=== PATIENT | female | born 1950 | race Caucasian/White ===

== ENCOUNTER 2016-11-18 09:09 | Day surgery (SDC) | payer MEDICARE, BC ==
--- NOTE | 2016-11-16 14:19 | HP ---
HISTORY OF PRESENT ILLNESS: The patient is a 66 year-old had an upper endoscopy with dilatation 5 or 6 years ago, now feels like food being stuck in her upper esophagus, almost anything at this time. PAST MEDICAL HISTORY: Diabetes, heart disease, history of bronchitis, hypertension. PAST SURGICAL HISTORY: She had wrist surgery, EGD, dilatation in the past, tonsillectomy and salivary gland surgery, appendectomy, hysterectomy in the past. FAMILY HISTORY: Heart disease, diabetes. ALLERGIES: Morphine, penicillin, Betadine, and tape. SOCIAL HISTORY: No alcohol abuse. Smoking currently. REVIEW OF SYSTEMS: 12 systems reviewed, per admission assessment, no current chest pain or palpitations, pertinent for dysphagia as mentioned above. She says using insulin pump she has had some reflux and nausea in the past. Also describing bronchitis, otherwise pertinent for multiple medical problems as noted above. She did have an VT back in 2004. MEDICATIONS: Albuterol, sulfate, allopurinol, amlodipine, aspirin, atorvastatin, carvedilol, gabapentin, Humalog, lisinopril, nitroglycerin p.r.n., sublingual potassium chloride, Pradaxa, ProAir, Ranexa, Sertraline, furosemide in the past. PHYSICAL EXAMINATION: GENERAL: No acute distress. HEENT: Sclerae nonicteric. NECK: No JVD. CHEST: Equal excursions, nonlabored breathing. CARDIOVASCULAR: Regular rhythm in my office exam. ABDOMEN: Soft, no peritoneal signs. EXTREMITIES: No significant edema. NEURO: Alert, moving extremities symmetrically. IMPRESSION: Dysphagia, Rosas esophagus. It was felt the patient would benefit from upper endoscopy, possible biopsy, possible dilatation. Risks and benefits explained in detail. She was shown the risk sheet, explained the plan of procedure in detail, not limited to bleeding, infection, small risk of bowel injury or perforation, possible open procedure. Ongoing morbidity, mortality, possible inability to pass the scope through or inability to dilate the esophagus possibly requiring other referrals or other specialists. Possibility, even though dilatation may improve swallowing, may need to be repeated again in the future, or possibility if failed to improve may need more of a motor or nerve-type function issue rather than an actual narrowing. She understands, agrees to plan of procedure, we will proceed with EGD, possible biopsy, possibly dilatation as an outpatient.
[~2016-11-18 09:09] MED LIST: Lactated Ringers 1,000 ML IV ONE; Lactated Ringers 1,000 ML IV SCH
--- NOTE | 2016-11-18 12:00 | OP ---
SURGERY DATE/TIME: 11/18/2016 1122 PREOPERATIVE DIAGNOSIS: Dysphagia. POSTOPERATIVE DIAGNOSES: 1) Proximal esophageal narrowing. 2) Mild gastritis. 3) Mild inflammation gastroesophageal junction. 4) Small gastric polyp. PROCEDURES: 1) EGD with esophageal balloon dilatation proximal esophagus. 2) Cold biopsy of the antrum to evaluate for Helicobacter pylori. 3) Cold biopsy polypectomy small gastric polyp. 4) Cold biopsy to evaluate mild inflammation gastroesophageal junction versus normal variation, path pending. SURGEON: Dr. Elliott Price. ANESTHESIA: MAC. ESTIMATED BLOOD LOSS: Minimal. INDICATIONS: As noted above. Risks and benefits explained in detail and not limited to and consent obtained. DESCRIPTION OF PROCEDURE AND FINDINGS: The patient is taken to the operating room. MAC anesthesia introduced. After official time out and no disagreement with planned procedure, bite block positioned. Video gastroscope easily passed in the oropharynx. There was proximal esophageal narrowing. The scope was able to be passed through this but this is where she is having symptoms. It was felt she would benefit from dilating this area. The scope passed back down through the gastroesophageal junction noted to be about 36 cm. There was some mild inflammation of the gastroesophageal junction. No gross evidence of Rosas's. The scope was able to be passed through the stomach to the junction of the second and third portion of the duodenum. On withdrawal of the scope, duodenum and duodenal bulb grossly unremarkable. Back in the stomach she had some minimal to mild gastritis. Cold biopsy taken of antrum to evaluate for Helicobacter pylori. There was a small polyp in the gastric body that was removed with cold biopsy forceps and cold biopsy polypectomy accomplished. Good hemostasis noted. On retroflex there is no evidence of any large hiatal hernia. Gastroesophageal junction was about 36 cm. There was a little bit of inflammation on the gastric side. Cold biopsy is taken of this area. There were no gross signs of any obvious erosive esophagitis. There were no signs of any large segments of Rosas's. There was just a little bit of inflammation so cold biopsy taken. The remainder of the esophagus grossly unremarkable other than proximal esophageal narrowing. It was felt this would benefit from dilatation. Therefore scope passed back down in the stomach. Balloon catheter carefully passed into the open area in the stomach and pulled back to proximal esophagus. Proximal esophageal narrowed area is then carefully inflated. First stage 45 seconds and second stage 45 seconds and then final stage size 20 balloon dilator for 2 minutes. The balloon was then released and catheter removed. The scope passed back down the stomach and carefully withdrawn. The biopsy site had good hemostasis. The area had been dilated. It was much more widely patent at this point. The scope was easily passed through this area at this time. There were no signs of any full thickness issues or injury secondary to dilatation. The patient tolerated the procedure well. The scope is withdrawn. Findings discussed with the family out in the waiting area.
[2016-11-18 12:49] VITALS: O2SAT 96
[2016-11-18 12:50] VITALS: BP 134/64; PULSE 64
== END 2016-11-18 12:48 | disposition home or self-care (01) ==
LOC: SDC 09:09
PROVIDERS: ATTEND Surgery
PROC: 0D718ZZ Dilation of Upper Esophagus, Via Natural or Artificial Opening Endoscopic (ICD-10-PCS; principal; 2016-11-18)
PROC: 0DB78ZX Excision of Stomach, Pylorus, Via Natural or Artificial Opening Endoscopic, Diagnostic (ICD-10-PCS; 2016-11-18)
PROC: 0DB48ZX Excision of Esophagogastric Junction, Via Natural or Artificial Opening Endoscopic, Diagnostic (ICD-10-PCS; 2016-11-18)
PROC: 0DB68ZX Excision of Stomach, Via Natural or Artificial Opening Endoscopic, Diagnostic (ICD-10-PCS; 2016-11-18)
DX: K22.2 Esophageal obstruction (principal); K29.70 Gastritis, unspecified, without bleeding; K52.9 Noninfective gastroenteritis and colitis, unspecified; K31.7 Polyp of stomach and duodenum; E11.9 Type 2 diabetes mellitus without complications; I51.9 Heart disease, unspecified; I10 Essential (primary) hypertension; Z79.01 Long term (current) use of anticoagulants; Z79.899 Other long term (current) drug therapy
CPT/HCPCS: 00740; 36415; C1726

== ENCOUNTER 2017-08-06 14:05 | Emergency (ER) | payer MEDICARE, BC ==
[2017-08-06] MEDS ORDERED: CARDIZEM DRIP 100 MG/100 ML D5W 100 ML IV PRN (14:37)
[2017-08-06] MEDS ORDERED: Cardizem IV 50 MG/10 ML IV ONE ×3 (14:37→14:58)
[2017-08-06] MEDS ORDERED: CARDIZEM DRIP 100 MG/100 ML D5W 100 ML IV ONE (14:40)
--- NOTE | 2017-08-06 14:40 | ERPHSYRPT ---
- History of Present Illness Time Seen by Provider: 08/06/17 14:30 Source: patient Physician History: PATIENT WITH A HISTORY OF COPD, ATRIAL FIBRILLATION COMPLAINS OF RAPID IRREGULAR HEART RATE X 3 DAYS ASSOCIATED WITH DYSPNEA, NONPRODUCTIVE COUGH AND EXERTIONAL DYSPNEA. DENIES CHEST PAIN FEVER, CHILLS OR NIGHT SWEATS Timing/Duration: day(s) Activities at Onset: activity Quality: other (DENIES CHEST PAIN) Severity of Pain-Max: none Severity of Pain-Current: none Modifying Factors: Improves With: other (EXERTIONAL DYSPNEA) Nitro Today/Relief: no nitro taken today Aspirin Treatment Today: no aspirin today Associated Symptoms: cough Prior Chest Pain/Cardiac Workup: heart attack Allergies/Adverse Reactions: adhesive Allergy (Mild, Verified 11/03/15 18:25) Blisters morphine Allergy (Verified 11/03/15 18:25) anaphylaxis pt went into respiratory failure and acute renal failure the last time she had morphine. Penicillins Allergy (Verified 11/03/15 18:25) Hives povidone-iodine [From Betadine] Allergy (Verified 11/03/15 18:25) BLISTERES soap [From Betadine] Allergy (Verified 11/03/15 18:25) Blisters Home Medications: Allopurinol 100 mg [Zyloprim 100 mg] 100 mg PO BID 11/07/15 [History] Amlodipine Besylate 5 mg [Norvasc 5 mg] 2.5 mg PO DAILY 11/07/15 [History] Carvedilol 3.125 mg [Coreg 3.125 MG] 6.25 mg PO BID 11/07/15 [History] Gabapentin 400 mg [Neurontin 400 MG] 400 mg PO QID 11/07/15 [History] Insulin Lispro [Humalog] 1 unit SQ UD 11/07/15 [History] Lisinopril [Prinivil] 20 mg PO DAILY 11/07/15 [History] Nitroglycerin 0.4 mg Tablet [Nitrostat 0.4 MG Tablet] 0.4 mg SL UD [History] Potassium Chloride 10 Meq Tab* [Klor Con 10 MEQ] 10 meq PO DAILY 11/07/15 [ History] Sertraline HCl 50 mg [Zoloft 50 mg Tablet] 50 mg PO DAILY 11/07/15 [History] Torsemide 20 mg PO DAILY 11/07/15 [History] Atorvastatin Calcium [Lipitor] 40 mg PO HS 10/14/16 [History] Ranolazine [Ranexa] 1,000 mg PO BID 10/14/16 [History] Hx Tetanus, Diphtheria Vaccination/Date Given: Yes Hx Influenza Vaccination/Date Given: Yes Hx Pneumococcal Vaccination/Date Given: Yes - Review of Systems Constitutional: No Fever, No Chills Eyes: No Symptoms Ears, Nose, & Throat: No Symptoms Respiratory: Dyspnea, Dyspnea on Exertion (JOYA), No Cough Cardiac: Palpitations, No Chest Pain, No Edema, No Syncope Abdominal/Gastrointestinal: No Symptoms, No Abdominal Pain, No Nausea, No Vomiting, No Diarrhea Genitourinary Symptoms: No Symptoms, No Dysuria Musculoskeletal: No Symptoms, No Back Pain, No Neck Pain Skin: No Symptoms, No Rash Neurological: No Symptoms, No Dizziness, No Focal Weakness, No Sensory Changes Psychological: No Symptoms Endocrine: No Symptoms All Other Systems: Reviewed and Negative - Past Medical History Pertinent Past Medical History: Yes Neurological History: No Pertinent History ENT History: No Pertinent History Cardiac History: Arrhythmia, Coronary Artery Disease, Hypertension, Myocardial Infarction (NH) Respiratory History: Bronchitis, COPD, Pneumonia Endocrine Medical History: Diabetes Type II Musculoskeletal History: Arthritis, Fractures GI Medical History: No Pertinent History, Hepatitis History: No Pertinent History Psycho-Social History: Depression Female Reproductive Disorders: No Pertinent History Other Medical History: 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 Heart murmur with afib hx. 2-3 dialysis treatments when on vent due to morphine allergy. Pt has Humalog insulin pump. - Past Surgical History Past Surgical History: Yes Neuro Surgical History: No Pertinent History Cardiac: No Pertinent History Respiratory: No Pertinent History Gastrointestinal: No Pertinent History Genitourinary: No Pertinent History Musculoskeletal: No Pertinent History, Orthopedic Surgery Female Surgical History: Hysterectomy Other Surgical History: right hand and wrist x 16 - sinus x 3 - - Social History Smoking Status: Former smoker How long have you smoked: 2years Exposure to second hand smoke: No Alcohol Use: None Drug Use: none Patient Lives Alone: No Significant Family History: diabetes, hypertension - Nursing Vital Signs Nursing Vital Signs: Initial Vital Signs Temperature 98.5 F 08/06/17 14:42 Pulse Rate 160 H 08/06/17 14:42 Respiratory Rate 17 08/06/17 14:42 Blood Pressure 153/96 08/06/17 14:42 O2 Sat by Pulse Oximetry 98 08/06/17 14:42 Pain Scale Pain Intensity 0 - Physical Exam General Appearance: mild distress Eye Exam: PERRL/EOMI, eyes nml inspection Ears, Nose, Throat Exam: normal ENT inspection, moist mucous membranes Neck Exam: normal inspection, non-tender, supple Respiratory Exam: diminished breath sounds, other (BASILAR ), No respiratory distress Cardiovascular Exam: normal heart sounds, tachycardia, irregular, No edema Gastrointestinal/Abdomen Exam: soft, normal bowel sounds, hernia (OBESE), No tenderness, No mass Back Exam: normal inspection, No CVA tenderness, No vertebral tenderness Extremity Exam: normal inspection, normal range of motion, pedal edema (2+) Neurologic Exam: alert, oriented x 3, cooperative, normal mood/affect, nml cerebellar function, sensation nml, No motor deficits Skin Exam: normal color, warm, dry Lymphatic Exam: No adenopathy SpO2 Interpretation: normal SpO2: 94 - Course EKG Interpreted by Me: RATE, A-fib (RATE 168, ), NORMAL AXIS - Radiology Exams Chest X-ray Interpretation: Discussed w/ radiologist (LEFT MID PERIPHERAL FIBROSIS/ SCARRING) Ordered Tests: Active Orders 24 hr Category Date Time Status Sales Engagement Manager STAT Care 08/06/17 15:03 Active EKG-ER Only STAT Care 08/06/17 15:03 Active IV Insertion STAT Care 08/06/17 15:03 Active Oxygen-ED Only NASAL CANNULA 1 lpm Care 08/06/17 14:35 Active CHEST 1 VIEW (PORTABLE) Stat Exams 08/06/17 14:36 Completed CBC W DIFF Stat Lab 08/06/17 14:33 Completed CMP Stat Lab 08/06/17 14:33 Completed NT PRO BNP Stat Lab 08/06/17 14:33 Completed PROTIME WITH INR Stat Lab 08/06/17 14:33 Completed TROPONIN Q3H Lab 08/06/17 14:33 Completed Medication Summary Discontinued Medications Generic Name Dose Route Start Last Admin Trade Name Freq PRN Reason Stop Dose Admin Diltiazem HCl 25 mg 08/06/17 14:37 08/06/17 14:47 Cardizem Iv 50 Mg/10 Ml IV 08/06/17 14:38 25 mg STAT ONE Administration Diltiazem HCl Confirm 08/06/17 14:40 Cardizem Iv 50 Mg/10 Ml Administered 08/06/17 14:41 Dose 50 mg IV .STK-MED ONE Diltiazem HCl 20 mg 08/06/17 14:58 08/06/17 15:25 Cardizem Iv 50 Mg/10 Ml IV 08/06/17 14:59 20 mg STAT ONE Administration Fentanyl Citrate 50 mcg 08/06/17 16:37 08/06/17 17:04 Sublimaze 100 Mcg/2 Ml IV 08/06/17 16:38 50 mcg STAT ONE Administration Fentanyl Citrate Confirm 08/06/17 17:04 Sublimaze 100 Mcg/2 Ml Administered 08/06/17 17:05 Dose 100 mcg .ROUTE .STK-MED ONE Sodium Chloride 1,000 mls @ 20 mls/hr 08/06/17 14:45 08/06/17 15:22 Sodium Chloride 0.9% 1000 Ml IV 09/05/17 14:44 20 mls/hr .Q24H JAMAL Administration Diltiazem HCl 100 mls @ 10 mls/hr 08/06/17 14:37 08/06/17 14:49 Cardizem Drip 100 Mg/100 Ml D5w IV 09/05/17 14:36 10 mg/hr .Q10H PRN 10 mls/hr HEART RATE/ A-FIB Administration Protocol 10 MG/HR Sodium Chloride Confirm 08/06/17 15:18 Sodium Chloride 0.9% 1000 Ml Administered 08/06/17 15:19 Dose 1,000 mls @ ud .ROUTE .STK-MED ONE Diltiazem HCl Confirm 08/06/17 14:40 Cardizem Drip 100 Mg/100 Ml D5w Administered 08/06/17 14:41 Dose 100 mls @ ud IV .STK-MED ONE Lab/Rad Data: Laboratory Result Diagrams 08/06/17 14:33 08/06/17 14:33 Laboratory Results 08/06/17 08/06/17 08/06/17 Range/Units 14:33 14:33 14:33 WBC (4.0-10.5) K/mm3 RBC (4.1-5.4) M/mm3 Hgb (12.0-16.0) gm/dl Hct (35-47) % MCV (78-100) fl MCH (26-32) pg MCHC (32-36) g/dl RDW (11.5-14.0) % Plt Count (150-450) K/mm3 MPV (6-9.5) fl Gran % (36.0-66.0) % Eos # (Auto) (0-0.5) Absolute Lymphs (auto) (1.0-4.6) Absolute Monos (auto) (0.0-1.3) Lymphocytes % (24.0-44.0) % Monocytes % (0.0-12.0) % Eosinophils % (0.00-5.0) % Basophils % (0.0-0.4) % Absolute Granulocytes (1.4-6.9) Basophils # (0-0.4) PT 11.4 (9.95-12.35) SECONDS INR 0.98 (0.8-3.0) Sodium 145 (137-145) mmol/L Potassium 4.2 (3.5-5.1) mmol/L Chloride 103 (98-107) mmol/L Carbon Dioxide 30 (22-30) mmol/L Anion Gap 15.5 H (5-15) MEQ/L BUN 12 (7-17) mg/dL Creatinine 0.71 (0.52-1.04) mg/dL Estimated GFR > 60.0 ML/MIN Glucose 200 H (74-106) mg/dL Calcium 9.6 (8.4-10.2) mg/dL Total Bilirubin 0.40 (0.2-1.3) mg/dL AST 21 (14-36) U/L ALT 18 (0-35) U/L Alkaline Phosphatase 90 (38-126) U/L Troponin I 0.065 H* (0.000-0.034) ng/mL NT-Pro-B Natriuret Pep 397 (0-900) pg/mL Serum Total Protein 7.0 (6.3-8.2) g/dL Albumin 3.8 (3.5-5.0) g/dL 08/06/17 Range/Units 14:33 WBC 12.1 H (4.0-10.5) K/mm3 RBC 4.57 (4.1-5.4) M/mm3 Hgb 13.4 (12.0-16.0) gm/dl Hct 42.0 (35-47) % MCV 91.9 (78-100) fl MCH 29.3 (26-32) pg MCHC 31.9 L (32-36) g/dl RDW 15.7 H (11.5-14.0) % Plt Count 261 (150-450) K/mm3 MPV 11.1 H (6-9.5) fl Gran % 76.3 H (36.0-66.0) % Eos # (Auto) 0.07 (0-0.5) Absolute Lymphs (auto) 2.02 (1.0-4.6) Absolute Monos (auto) 0.75 (0.0-1.3) Lymphocytes % 16.7 L (24.0-44.0) % Monocytes % 6.2 (0.0-12.0) % Eosinophils % 0.6 (0.00-5.0) % Basophils % 0.2 (0.0-0.4) % Absolute Granulocytes 9.25 H (1.4-6.9) Basophils # 0.02 (0-0.4) PT (9.95-12.35) SECONDS INR (0.8-3.0) Sodium (137-145) mmol/L Potassium (3.5-5.1) mmol/L Chloride (98-107) mmol/L Carbon Dioxide (22-30) mmol/L Anion Gap (5-15) MEQ/L BUN (7-17) mg/dL Creatinine (0.52-1.04) mg/dL Estimated GFR ML/MIN Glucose (74-106) mg/dL Calcium (8.4-10.2) mg/dL Total Bilirubin (0.2-1.3) mg/dL AST (14-36) U/L ALT (0-35) U/L Alkaline Phosphatase (38-126) U/L Troponin I (0.000-0.034) ng/mL NT-Pro-B Natriuret Pep (0-900) pg/mL Serum Total Protein (6.3-8.2) g/dL Albumin (3.5-5.0) g/dL - Progress Progress: improved (DISCUSSED WITH TEACHER OF THE EMOTIONALLY DISTURBED DR WALL AT 1615 ACCEPTS TRANSFER TO [facility] EM[facility] RO[facility] VIA [facility]) Progress Note: 08/06/17 15:52 IV NORMAL SALINE 10ML/HR CARDIZEM 25MG IVP SLOWLY, REPEAT 20MG IV FOLLOWED BY CARDIZEM INFUSION 10MG/HR RATE IMPROVED 170'S TO 100'S - Departure Time of Disposition: 16:22 Departure Disposition: Transfer Clinical Impression: ATRIAL FIBRILLATION RVR Condition: Stable Critical Care Time: Yes Critical Care Time(excluding separately billable procedures): 30-74 minutes, __ _ minutes (50) Referrals: LUIS GALLOWAY MD [Primary Care Provider] -
[2017-08-06] MEDS ORDERED: Sodium Chloride 0.9% 1000 ML 1,000 ML IV SCH (14:45)
[2017-08-06 15:03] LABS: BASOPHIL % 0.2 % (0.0-0.4); Basophil (Absolute #) 0.02 (0-0.4); Eosinophil % 0.6 % (0.00-5.0); Eosinophil (Absolute #) 0.07 (0-0.5); Granulocyte Absolute (ANC) 9.25 (1.4-6.9); Granulocytes % 76.3 % (36.0-66.0); Hemoglobin 13.4 gm/dl (12.0-16.0); Lymphocyte (Absolute #) 2.02 (1.0-4.6); Lymphocytes % 16.7 % (24.0-44.0); Mean Cell Volume 91.9 fl (78-100); Mean Corpuscular Hemoglobin 29.3 pg (26-32); Mean Corpuscular Hgb Concent. 31.9 g/dl (32-36); Mean Platelet Volume 11.1 fl (6-9.5); Monocyte (Absolute #) 0.75 (0.0-1.3); Monocytes % 6.2 % (0.0-12.0); Platelet Count 261 K/mm3 (150-450); Red Blood Count 4.57 M/mm3 (4.1-5.4); Red Cell Distribution Width 15.7 % (11.5-14.0); White Blood Count 12.1 K/mm3 (4.0-10.5)
[2017-08-06 15:05] LABS: INR 0.98 (0.8-3.0)
[2017-08-06 15:12] LABS: ALBUMIN 3.8 g/dL (3.5-5.0); ALKALINE PHOSPHATASE 90 U/L (38-126); ANION GAP 15.5 MEQ/L (5-15); BLOOD UREA NITROGEN 12 mg/dL (7-17); CHLORIDE 103 mmol/L (98-107); Calcium 9.6 mg/dL (8.4-10.2); Carbon Dioxide 30 mmol/L (22-30); Creatinine 1 0.71 mg/dL (0.52-1.04); Glucose 200 mg/dL (74-106); Potassium 4.2 mmol/L (3.5-5.1); SGOT/AST 21 U/L (14-36); SGPT/ALT 18 U/L (0-35); SODIUM 145 mmol/L (137-145)
[2017-08-06] MEDS ORDERED: Sodium Chloride 0.9% 1000 ML 1,000 ML ONE (15:18)
[2017-08-06 15:21] LABS: NT PRO BNP 397 pg/mL (0-900)
--- NOTE | 2017-08-06 15:41 | XRAY ---
Indication: Dyspnea. Comparison: May 09, 2017. Portable chest demonstrates stable left mid peripheral fibrosis/scarring. Remaining heart and lungs unremarkable. Bony thorax intact again with mild degenerative changes. Impression: Stable nonacute chest with chronic features.
[2017-08-06 16:14] VITALS: BP 127/73; PULSE 125
[2017-08-06 16:22] VITALS: O2SAT 94
[2017-08-06] MEDS ORDERED: SUBLIMAZE 100 MCG/2 ML IV ONE (16:37)
[2017-08-06] MEDS ORDERED: SUBLIMAZE 100 MCG/2 ML ONE (17:04)
== END 2017-08-06 17:14 | disposition short-term general hospital (02) ==
LOC: ED 14:05
DX: I48.91 Unspecified atrial fibrillation (principal); Z79.899 Other long term (current) drug therapy; E11.9 Type 2 diabetes mellitus without complications; Z79.4 Long term (current) use of insulin; I10 Essential (primary) hypertension
CPT/HCPCS: 36000; 36415; 71045; 80053; 83880; 84484; 85025; 85610; 93005; 93041; 96365; 96366; 96374; 96376; 99285; J3010

== ENCOUNTER 2018-11-30 08:33 | Observation (INO) | payer MEDICARE, BC ==
--- NOTE | 2018-11-30 07:57 | HP ---
DATE OF SURGERY: 11/30/2018 HISTORY OF PRESENT ILLNESS: The patient is a 68 year-old with increasing subcutaneous mass right upper arm. Increased aches and pains, desires excision. The patient had a small area on the opposite arm. PAST MEDICAL HISTORY: Diabetes, heart disease, chronic obstructive pulmonary disease. Arthritis. Aches and pains in her joints in the past. Gout. PAST SURGICAL HISTORY: Appendectomy. Hysterectomy. Tonsillectomy. Colonoscopy. Vaginal cyst removed in the past. MEDICATIONS: Includes Allopurinol, amiodarone, aspirin, atorvastatin, carvedilol, famotidine, Humalog, Hydralazine, isosorbide mononitrate, losartan, nitroglycerin, pantoprazole, potassium chloride, Pradaxa, ranolazine, Sertraline, Torsemide, Ventolin HFA. ALLERGIES: BETADINE. MORPHINE. PENICILLIN. TAPE. ADVERSE REACTION TO CHELSEY INHIBITOR IN THE PAST. FAMILY HISTORY: Diabetes, heart disease. SOCIAL HISTORY: She denied smoking or alcohol abuse but former smoker. REVIEW OF SYSTEMS: Fourteen systems reviewed. No chest pain or palpitations other systems negative or noncontributory as above and per preadmission questionnaire. PHYSICAL EXAMINATION: GENERAL: No acute distress. HEENT: Sclerae nonicteric. NECK: No JVD. CHEST: Equal excursion, nonlabored breathing. CVS: Regular rate and rhythm. ABDOMEN: Soft, nondistended. EXTREMITIES: Right upper arm increasing in size subcutaneous mass possible lipoma. Small area on her left arm. IMPRESSION: Bilateral arm subcutaneous masses or lipomas. The patient is in need of excisional biopsy of increasingly symptomatic aches and pains. Risks and benefits explained in detail including but not limited to bleeding or infection, risk of hematoma or seroma formation, wound dehiscence or wound infection possibly requiring packing, general risk of aches, pains, burning, numbness, possible vermin exterminator or chronic, possibly what we excise likely will not recur but could get similar subcutaneous mass, lipoma, or other nodule adjacent to or elsewhere on her body. She understands and agrees to the planned procedure, will proceed with excisional biopsy of bilateral arm subcutaneous mass or lipoma. General risk of anesthesia, deep venous thrombosis, pulmonary embolism, pneumonia but not limited to.
[~2018-11-30 08:33] MED LIST changes: -Lactated Ringers 1,000 ML IV SCH; +Sensorcaine 0.25% 10 ML ONE
[2018-11-30] MEDS ORDERED: Lactated Ringers 1,000 ML IV ONE (09:22)
[2018-11-30] MEDS ORDERED: KEFZOL 1 GM/50 ML PREMIX** 1 GM/50 ML IVPB IV ONE (09:23)
[2018-11-30] MEDS: Lactated Ringers 1,000 ML IV SCH ×2 (09:25→13:57)
[2018-11-30] MEDS ORDERED: KEFZOL 1 GM/50 ML PREMIX** 1 GM/50 ML IVPB IV SCH (09:30)
[2018-11-30] MEDS ORDERED: Versed 2 MG/2 ML Injection ONE (10:22)
[2018-11-30] MEDS ORDERED: DIPRIVAN 200 MG/20 ML IV ONE (10:22)
[2018-11-30] MEDS ORDERED: SUBLIMAZE 100 MCG/2 ML ONE ×2 (10:22→11:32)
[2018-11-30] MEDS ORDERED: Quelicin Fliptop 200 MG/10 ML ONE (10:22)
[2018-11-30] MEDS ORDERED: Ephedrine Sulfate 50 MG/ML ONE (10:46)
[2018-11-30] MEDS ORDERED: BRIDION 200MG/2ML IV ONE (11:13)
[2018-11-30] MEDS ORDERED: Xopenex 1.25 MG/0.5 ML UD NEBULE IH ONE (11:40)
[2018-11-30] MEDS ORDERED: Sodium Chloride 3 ML UD NEBULES IH ONE (11:41)
[2018-11-30] MEDS ORDERED: Lasix 40 MG/4 ML ONE (11:43)
--- NOTE | 2018-11-30 11:46 | OP ---
SURGERY DATE/TIME: 11/30/2018 1122 PREOPERATIVE DIAGNOSIS: Enlarging subcutaneous masses or lipomas bilateral upper extremity. POSTOPERATIVE DIAGNOSIS: Enlarging subcutaneous masses or lipomas bilateral upper extremity. PROCEDURES: 1) Excisional biopsy right upper extremity lipomatous mass (approximately 6.5 cm) with intermediate closure. 2) Excisional biopsy left lobulated lipomatous density left upper extremity (approximately 3 cm) with intermediate closure. SURGEON: Dr. Elliott Price. RADIO MECHANIC HELPER: Sampson Ramos, Medical Student III. ANESTHESIA: General. ESTIMATED BLOOD LOSS: Minimal. INDICATIONS: As noted above. Risks and benefits explained in detail and not limited to and consent obtained. DESCRIPTION OF PROCEDURE AND FINDINGS: The patient had a jugular line placed as had bilateral upper extremities that needed intervention. She is taken to the operating room. General anesthesia induced. The arms were prepped and draped in usual sterile fashion. After official time out and no disagreement with planned procedure, the site had been marked and confirmed in the preoperative holding area. Dissection carried down through the skin through the lobulated long lipomatous density in the right arm just above the antecubital area. Dissection carried down circumferentially around this lobulated density. Dissected off the underlying fascia. It measured about 6.5 cm in size, passed off for pathology. The remainder of the subcutaneous tissue appeared to be normal subcutaneous fat around the area. Good hemostasis noted. The wound is closed in layers through the deep and superficial subcu closed with 3-0 Vicryl. Skin closed with 4-0 Vicryl in running subcuticular fashion. She had some Dermabond placed later as she had some Steri-Strips. 0.25% Marcaine local had been injected. The patient tolerated the procedure well. There were no immediate complications. Attention is then turned to the left upper extremity. In the same location a small area was noted although it was vaguer. It required making a little bit longer incision, dissection down circumferentially around lobulated density, subcutaneous lipomatous density, this seemed to be smaller than the opposite side. It is carefully dissected free from the underlying fascia and more normal appearing subcutaneous fat around the area and passed off for pathology. The remainder of the subcutaneous tissue around there appeared normal in density. No other obvious separate lipomatous densities around the area. Good hemostasis noted. The wound was closed in intermediate fashion, deep and superficial subcu closed with 3-0 Vicryl. Skin closed with 4-0 Vicryl, Dermabond, sterile dressing applied. 0.25% Marcaine local injected along with compression dressing. The patient tolerated the procedure well. There were no immediate complications. Findings discussed with the family out in the waiting area. The left side was about 3 x 5 x 6.5 cm. I will see her back in the office next week.
--- NOTE | 2018-11-30 12:04 | XRAY ---
Indication: Right jugular line placement. Comparison: August 06, 2017. Portable chest demonstrates new right jugular central venous access catheter with tip projecting over the SVC and without pneumothorax. New bilateral upper lobe subsegmental atelectasis/scarring and left hemidiaphragm elevation. Remaining heart, lungs, and bony thorax unremarkable.
[2018-11-30] MEDS ORDERED: DILAUDID 2 MG INJECTION ONE (12:09)
[2018-11-30] MEDS ORDERED: NORCO 5/325 MG PO PRN (13:38)
[2018-11-30] MEDS ORDERED: NON-FORMULARY ITEM (Insulin Lispro 1 UNIT) CONT-SUBQ SCH (13:45)
[2018-11-30] MEDS: Apresoline 25 MG TABLET PO SCH ×2 (13:57→22:36)
[2018-11-30] MEDS: Klor Con 10 MEQ PO SCH ×2 (13:57→22:35)
[2018-11-30] MEDS ORDERED: POTASSIUM CHLORIDE 20 MEQ POWDER FOR ORAL SOL PO SCH (15:00)
[2018-11-30] MEDS ORDERED: Xopenex 1.25 MG/0.5 ML UD NEBULE IH PRN (16:35)
--- NOTE | 2018-11-30 16:39 | PCM.HP ---
History of Present Illness - Chief Complaint Chief Complaint: Difficulty Breathing Acute Exac History of Present Illness: is a 68 year old female who had an elective outpatient procedure in surgery today, she had removal of bilateral arm lipomas under general. following the procedure she complained of shortness of breath so was direct admit. she is currently stable on 2L oxygen NC which she is on chronically, hx of cardiac disease including cad and copd. she still feels short of breath objectively but is resting comfortably, has IJ in right neck and complains of pain there, no chest pain. - Review of Systems Constitutional: No Fever, No Chills Respiratory: Short Of Breath Cardiac: No Chest Pain, No Edema, No Syncope Abdominal/Gastrointestinal: No Abdominal Pain, No Nausea, No Vomiting, No Diarrhea Genitourinary Symptoms: No Dysuria Skin: No Rash All Other Systems: Reviewed and Negative Medications & Allergies Home Medications: Home Medication List Allopurinol 100 mg [Zyloprim 100 mg] 100 mg PO BID 11/18/18 [History Confirmed 11/30/18] Amiodarone HCl 200 mg [Cordarone 200 MG] 200 mg PO DAILY 11/18/18 [ History Confirmed 11/30/18] Aspirin 81 mg PO DAILY 11/18/18 [History Confirmed 11/30/18] Carvedilol 12.5 mg [Coreg 12.5 mg] 12.5 mg PO DAILY 11/18/18 [History Confirmed 11/30/18] Dabigatran Etexilate Mesylate [Pradaxa] 150 mg PO BID 11/18/18 [History Confirmed 11/30/18] Famotidine [Pepcid] 40 mg PO DAILY 11/18/18 [History Confirmed 11/30/18] HydrALAzine HCL 25 MG TAB [Apresoline 25 MG TABLET] 25 mg PO TID 11/18/18 [History Confirmed 11/30/18] Insulin Lispro [Humalog] 1 unit CONT-SUBQ UD 11/18/18 [History Confirmed ] Isosorbide Mononitrate 30 mg [Imdur 30 MG] 30 mg PO DAILY 11/18/18 [ History Confirmed 11/30/18] Losartan Potassium [Cozaar] 100 mg PO DAILY 11/18/18 [History Confirmed 11/30/18 ] Multivitamin [Daily Multivitamin] 1 each PO DAILY 11/18/18 [History Confirmed ] [place]-3S/Dha/Epa/Fish Oil [[place] Power 1,050 mg Softgel] 1,050 mg PO BID [History Confirmed 11/30/18] PANTOPRAZOLE 40 mg Tablet [Protonix 40MG Tablet] 40 mg PO QAM 11/18/18 [ History Confirmed 11/30/18] Potassium Chloride [Klor-Con] 20 meq PO TID 11/18/18 [History Confirmed 11/30/18 ] Ranolazine [Ranexa] 1,000 mg PO BID 11/18/18 [History Confirmed 11/30/18] Sertraline HCl 50 mg [Zoloft 50 mg Tablet] 50 mg PO DAILY 11/18/18 [History Confirmed 11/30/18] Torsemide 20 mg [Demadex 20 mg] 20 mg PO BID 11/18/18 [History Confirmed 11/30/18] Allergies/Adverse Reactions: Allergies Allergy/AdvReac Type Severity Reaction Status Date / Time adhesive Allergy Mild Blisters Verified 11/30/18 09:16 morphine Allergy anaphylaxis Verified 11/30/18 09:16 Penicillins Allergy Rash Verified 11/30/18 09:16 povidone-iodine Allergy BLISTERES Verified 11/30/18 09:16 [From Betadine] soap [From Betadine] Allergy Blisters Verified 11/30/18 09:16 - Past Medical History Past Medical History: Yes Neurological History: No Pertinent History ENT History: No Pertinent History Cardiac History: Arrhythmia, Coronary Artery Disease, Hypertension, Myocardial Infarction (NH) Respiratory History: COPD, Pneumonia, Sleep Apnea Endocrine Medical History: Diabetes Type II Musculoskelatal History: Arthritis, Fractures GI Medical History: Hepatitis History: Other Pyscho-Social History: Depression Reproductive Disorders: No Pertinent History Comment: 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 Heart murmur with afib hx. 2-3 dialysis treatments when on vent due to morphine allergy. Pt has Humalog insulin pump. hx hepatitis A as a child - Female History Hx Last Menstrual Period: 1989 Are you now?: No - Past Surgical History Past Surgical History: Yes Neuro Surgical History: No Pertinent History Cardiac History: No Pertinent History Respiratory Surgery: No Pertinent History GI Surgical History: Hernia Repair Genitourinary Surgical Hx: No Pertinent History Musculskeletal Surgical Hx: No Pertinent History, Orthopedic Surgery Female Surgical History: Hysterectomy Other Surgical History: right hand and wrist x 16 - sinus x 3 -. cyst removed left side. NODULES REMOVED FROM BILATERAL ARMS - Social History Smoking Status: Never smoker How long have you smoked: 2years Exposure to second hand smoke: No Alcohol: None Drug Use: none Significant Family History: diabetes, hypertension - Physical Exam Vital Signs: Vital Signs - 24 hr Temp Pulse Resp BP Pulse Ox 11/30/18 14:49 97.4 F 64 20 128/68 96 11/30/18 13:59 97.6 F 62 20 123/58 94 L 11/30/18 13:18 96 11/30/18 13:17 97.6 F 62 20 135/63 95 11/30/18 13:08 97.6 F 63 20 149/67 93 L 11/30/18 11:46 63 18 99 11/30/18 09:28 98.2 F 58 L 19 155/59 96 11/30/18 09:23 98.2 F 58 L 19 155/59 96 Oxygen-Last 24 hours O2 Percentage 2 Liters = 28% O2 Percentage 2 Liters = 28% O2 Percentage 2 Liters = 28% O2 Percentage 2 Liters = 28% Oxygen Flowrate (L/min)-RT 2 General Appearance: no apparent distress, obese Neurologic Exam: alert, oriented x 3 Respiratory Exam: normal breath sounds, lungs clear, No respiratory distress Cardiovascular Exam: regular rate/rhythm, normal heart sounds, normal peripheral pulses Gastrointestinal/Abdomen Exam: soft, normal bowel sounds, No tenderness, No mass Extremity Exam: normal inspection, normal range of motion, pelvis stable Skin Exam: normal color, warm, dry, No rash Results - Labs Lab/Micro Results: Accuchecks Date 11/30/18 Time 09:11 Accucheck Value: 187 Accuchecks Date 11/30/18 Time 09:11 Accucheck Value: 187 - Radiology Impressions Radiology Exams & Impressions: Radiology Procedures Category Date Time Status CHEST 1 VIEW (PORTABLE) Routine Exams 11/30/18 11:50 Completed - Other Procedures and Tests Respiratory Therapy 11/30/18 11:46 Respiratory Therapy Assessment DAILY 11/30/18 12:06 Flutter Therapy UD 11/30/18 13:17 Oxygen NASAL CANNULA 2 lpm 11/30/18 21:00 BiPap/CPAP ROUTINE Assessment/Plan (1) Shortness of breath Current Visit: Yes Status: Acute Assessment & Plan: chest xray with some mild atelectasis, no pnemonia. no obvious volume overload on exam. will check d-dimer, troponin and 12 lead ekg but currently sounds like a normal sinus rhythm. will give nebs prn and observe overnight. Code(s): R06.02 - SHORTNESS OF BREATH (2) Chronic obstructive lung disease Current Visit: No Status: Acute Code(s): J44.9 - CHRONIC OBSTRUCTIVE PULMONARY DISEASE, UNSPECIFIED (3) Essential hypertension Current Visit: No Status: Acute Code(s): I10 - ESSENTIAL (PRIMARY) HYPERTENSION (4) Paroxysmal atrial fibrillation Current Visit: No Status: Acute Code(s): I48.0 - PAROXYSMAL ATRIAL FIBRILLATION
[2018-11-30] MEDS ORDERED: Sodium Chloride 3 ML UD NEBULES IH PRN (16:48)
[2018-11-30] MEDS ORDERED: TRANDATE 100 MG/20 ML MDV FOR DRIP IV ONE (16:57)
[2018-11-30 17:04] LABS: BASOPHIL % 0.2 % (0.0-0.4); Basophil (Absolute #) 0.02 (0-0.4); Eosinophil % 0.4 % (0.00-5.0); Eosinophil (Absolute #) 0.04 (0-0.5); Granulocyte Absolute (ANC) 5.38 (1.4-6.9); Granulocytes % 58.7 % (36.0-66.0); Hematocrit 36.7 % (35-47); Hemoglobin 11.7 gm/dl (12.0-16.0); Lymphocyte (Absolute #) 2.89 (1.0-4.6); Lymphocytes % 31.6 % (24.0-44.0); Mean Cell Volume 99.7 fl (78-100); Mean Corpuscular Hemoglobin 31.7 pg (26-32); Mean Corpuscular Hgb Concent. 31.9 g/dl (32-36); Mean Platelet Volume 10.2 fl (6-9.5); Monocyte (Absolute #) 0.83 (0.0-1.3); Monocytes % 9.1 % (0.0-12.0); Platelet Count 250 K/mm3 (150-450); Red Blood Count 3.68 M/mm3 (4.1-5.4); Red Cell Distribution Width 13.9 % (11.5-14.0); White Blood Count 9.2 K/mm3 (4.0-10.5)
[2018-11-30] MEDS: DEMADEX 20 MG PO SCH (17:11)
[2018-11-30 17:27] LABS: ANION GAP 10.5 MEQ/L (5-15); BLOOD UREA NITROGEN 19 mg/dL (7-17); CHLORIDE 107 mmol/L (98-107); Calcium 8.8 mg/dL (8.4-10.2); Carbon Dioxide 28 mmol/L (22-30); Creatinine 1 0.91 mg/dL (0.52-1.04); Glucose 148 mg/dL (74-106); Potassium 3.9 mmol/L (3.5-5.1); SODIUM 141 mmol/L (137-145)
[2018-11-30 17:39] LABS: NT PRO BNP 84.9 pg/mL (0-900); TROPONIN < 0.012 ng/mL (0.000-0.034)
[2018-11-30] MEDS ORDERED: NON-FORMULARY ITEM (Dabigatran Etexilate Mesylate [Pradaxa] 150 MG) PO SCH (22:00)
[2018-11-30] MEDS ORDERED: [UNRECOGNIZED DRUG - OTHER] PO SCH (22:00)
[2018-11-30] MEDS ORDERED: RANOLAZINE 1000 MG PO SCH (22:00)
[2018-11-30] MEDS ORDERED: Ambien 5 MG Tablet PO ONE (22:16)
[2018-11-30] MEDS: Ranexa 500 MG PO SCH (22:35)
[2018-11-30] MEDS: FISH OIL 1,000 MG CAPSULE PO SCH ×2 (22:35→22:43)
[2018-11-30] MEDS: ULTRAM 50 MG PO PRN (22:36)
[2018-11-30] MEDS: ZYLOPRIM 100 MG PO SCH (22:36)
[2018-11-30] MEDS: NovoLOG Insulin SQ PRN (22:36)
[2018-12-01] MEDS: ULTRAM 50 MG PO PRN (05:05)
[2018-12-01] MEDS ORDERED: ULTRAM 50 MG PO PRN (06:54)
--- NOTE | 2018-12-01 08:56 | PCM.NOTE ---
Date and Time: 12/01/18 0851 Subjective Assessment: Pt stil feeling SOB. She states she's been having JOYA for the past 2 wks more than usual. Last echo 1 yr ago. Also co bilat LE pain, from knees down, anterior and posterior legs. She has a betadine allergy, "external hives and blisters." - Review of Systems Constitutional: No Fever Respiratory: Cough, Short Of Breath Objective Exam General Appearance: no apparent distress, alert, obese Neurologic Exam: oriented x 3, cooperative Skin Exam: normal color, warm, dry, No rash Respiratory Exam: lungs clear, diminished breath sounds, No crackles/rales, No rhonchi, No wheezing Cardiovascular Exam: regular rate/rhythm, normal heart sounds, No murmur Extremity Exam: normal inspection, other (calves and anterior lower legs ttp bilat. no edema, no erythema, no lesions.) Back Exam: normal inspection, No rash OBJECTIVE DATA Vital Signs: Vital Signs - 24 hr Temp Pulse Resp BP BP Pulse Ox 12/01/18 08:31 63 16 97 12/01/18 05:00 97.6 F 67 20 182/70 98 11/30/18 23:55 98.5 F 69 20 148/66 96 11/30/18 21:21 97.9 F 68 22 134/63 96 11/30/18 19:15 97 11/30/18 17:27 97.8 F 74 20 128/68 95 11/30/18 14:49 97.4 F 64 20 128/68 96 11/30/18 13:59 97.6 F 62 20 123/58 94 L 11/30/18 13:18 96 11/30/18 13:17 97.6 F 62 20 135/63 95 11/30/18 13:08 97.6 F 63 20 149/67 93 L 11/30/18 11:46 63 18 99 11/30/18 09:28 98.2 F 58 L 19 155/59 96 11/30/18 09:23 98.2 F 58 L 19 155/59 96 Oxygen-Last 24 hours O2 Percentage 2 Liters = 28% O2 Percentage 2 Liters = 28% O2 Percentage 2 Liters = 28% O2 Percentage 2 Liters = 28% O2 Percentage 2 Liters = 28% O2 Percentage 2 Liters = 28% O2 Percentage 2 Liters = 28% O2 Percentage 2 Liters = 28% Oxygen Flowrate (L/min)-RT 2 Pain Assessment - Last Documented Pain Intensity [back] 5 Pain Intensity 7 Pain Scale Used FLACC Intake and Output: Intake & Output 11/28/18 11/29/18 11/30/18 12/01/18 11:59 11:59 11:59 11:59 Intake Total 720 Output Total 800 Balance -80 Weight 109.6 kg 112.7 kg Lab Results: Accuchecks Date 11/30/18 Time 09:11 Accucheck Value: 191 Accucheck Value: 187 Lab Results-Last 24 Hours 11/30/18 11/30/18 11/30/18 Range/Units 17:01 17:01 17:01 WBC 9.2 (4.0-10.5) K/mm3 RBC 3.68 L (4.1-5.4) M/mm3 Hgb 11.7 L (12.0-16.0) gm/dl Hct 36.7 (35-47) % MCV 99.7 (78-100) fl MCH 31.7 (26-32) pg MCHC 31.9 L (32-36) g/dl RDW 13.9 (11.5-14.0) % Plt Count 250 (150-450) K/mm3 MPV 10.2 H (6-9.5) fl Gran % 58.7 (36.0-66.0) % Eos # (Auto) 0.04 (0-0.5) Absolute Lymphs (auto) 2.89 (1.0-4.6) Absolute Monos (auto) 0.83 (0.0-1.3) Lymphocytes % 31.6 (24.0-44.0) % Monocytes % 9.1 (0.0-12.0) % Eosinophils % 0.4 (0.00-5.0) % Basophils % 0.2 (0.0-0.4) % Absolute Granulocytes 5.38 (1.4-6.9) Basophils # 0.02 (0-0.4) D-Dimer 721 H* (215-500) ng/mL Sodium (137-145) mmol/L Potassium (3.5-5.1) mmol/L Chloride (98-107) mmol/L Carbon Dioxide (22-30) mmol/L Anion Gap (5-15) MEQ/L BUN (7-17) mg/dL Creatinine (0.52-1.04) mg/dL Estimated GFR ML/MIN Glucose (74-106) mg/dL Hemoglobin A1c (4.5-6.0) % Calcium (8.4-10.2) mg/dL Troponin I < 0.012 (0.000-0.034) ng/mL NT-Pro-B Natriuret Pep 84.9 (0-900) pg/mL 11/30/18 11/30/18 Range/Units 17:01 17:01 WBC (4.0-10.5) K/mm3 RBC (4.1-5.4) M/mm3 Hgb (12.0-16.0) gm/dl Hct (35-47) % MCV (78-100) fl MCH (26-32) pg MCHC (32-36) g/dl RDW (11.5-14.0) % Plt Count (150-450) K/mm3 MPV (6-9.5) fl Gran % (36.0-66.0) % Eos # (Auto) (0-0.5) Absolute Lymphs (auto) (1.0-4.6) Absolute Monos (auto) (0.0-1.3) Lymphocytes % (24.0-44.0) % Monocytes % (0.0-12.0) % Eosinophils % (0.00-5.0) % Basophils % (0.0-0.4) % Absolute Granulocytes (1.4-6.9) Basophils # (0-0.4) D-Dimer (215-500) ng/mL Sodium 141 (137-145) mmol/L Potassium 3.9 (3.5-5.1) mmol/L Chloride 107 (98-107) mmol/L Carbon Dioxide 28 (22-30) mmol/L Anion Gap 10.5 (5-15) MEQ/L BUN 19 H (7-17) mg/dL Creatinine 0.91 (0.52-1.04) mg/dL Estimated GFR > 60.0 ML/MIN Glucose 148 H (74-106) mg/dL Hemoglobin A1c 6.42 H (4.5-6.0) % Calcium 8.8 (8.4-10.2) mg/dL Troponin I (0.000-0.034) ng/mL NT-Pro-B Natriuret Pep (0-900) pg/mL Radiology Exams: Radiology Procedures Category Date Time Status CHEST 1 VIEW (PORTABLE) Routine Exams 11/30/18 11:50 Completed CHEST WITH CONTRAST [CT] Stat Exams 12/01/18 08:45 Stop Req ECHO W/2D AND DOPPLER [US] Routine Exams 12/01/18 Ordered VENOUS BILATERAL EXTREMITY [US] Stat Exams 12/01/18 Ordered Assessment/Plan (1) Shortness of breath Current Visit: Yes Status: Acute Assessment & Plan: worse JOYA x 2 wks. Echo ordered. Her troponin was neg. No real improvement overnight. She had elevated d-dimer; does have good renal function currently, but has an iodine allergy listed. Will start therapeutic lovenox if OK with surgery, will check LE dopplers, if neg then will consider pre-treating with benadryl/steroid and going ahead with CTA of the chest to r/o PE. Code(s): R06.02 - SHORTNESS OF BREATH (2) Lipoma Current Visit: Yes Status: Resolved Qualifiers: Lipoma location: upper extremity Assessment & Plan: S/p surgical removal, bilat, POD #1. stable. Code(s): D17.9 - BENIGN LIPOMATOUS NEOPLASM, UNSPECIFIED (3) Chronic obstructive lung disease Current Visit: No Status: Chronic Code(s): J44.9 - CHRONIC OBSTRUCTIVE PULMONARY DISEASE, UNSPECIFIED (4) Essential hypertension Current Visit: No Status: Chronic Assessment & Plan: stable Code(s): I10 - ESSENTIAL (PRIMARY) HYPERTENSION (5) Leg pain Current Visit: No Status: Acute Qualifiers: Laterality: bilateral Qualified Code(s): M79.604 - Pain in right leg; M79.605 - Pain in left leg (6) Paroxysmal atrial fibrillation Current Visit: No Status: Chronic Code(s): I48.0 - PAROXYSMAL ATRIAL FIBRILLATION (7) Renal insufficiency Current Visit: No Status: Chronic Assessment & Plan: renal function is good here (8) Diabetes mellitus Current Visit: No Status: Chronic Qualifiers: Diabetes mellitus type: type 1 Diabetes mellitus complication status: with kidney complications Diabetes mellitus complication detail: with chronic kidney disease Chronic kidney disease stage: unspecified stage Qualified Code(s): E10.22 - Type 1 diabetes mellitus with diabetic chronic kidney disease Code(s): E11.9 - TYPE 2 DIABETES MELLITUS WITHOUT COMPLICATIONS
[2018-12-01] MEDS ORDERED: PHARMACY DOSING REQUEST MC ONE (09:30)
[2018-12-01] MEDS ORDERED: ENOXAPARIN SODIUM SQ SCH (10:00)
[2018-12-01] MEDS ORDERED: NON-FORMULARY ITEM (Famotidine [Pepcid] 40 MG) PO SCH (10:00)
[2018-12-01] MEDS ORDERED: NON-FORMULARY ITEM (Aspirin [Aspirin] 81 MG) PO SCH ×2 (10:00)
[2018-12-01] MEDS ORDERED: NON-FORMULARY ITEM (Multivitamin [Daily Multivitamin] 1 EACH) PO SCH (10:00)
[2018-12-01] MEDS ORDERED: NON-FORMULARY ITEM (Losartan Potassium [Cozaar] 100 MG) PO SCH (10:00)
[2018-12-01] MEDS: NovoLOG Insulin SQ PRN ×4 (10:26→22:08)
[2018-12-01] MEDS: ZYLOPRIM 100 MG PO SCH ×2 (11:26→22:14)
[2018-12-01] MEDS: DEMADEX 20 MG PO SCH ×2 (11:26→17:35)
[2018-12-01] MEDS: Imdur 30 MG PO SCH (11:26)
[2018-12-01] MEDS: THERAGRAN MULTIVITAMIN PO SCH (11:26)
[2018-12-01] MEDS: Cordarone 200 MG PO SCH (11:27)
[2018-12-01] MEDS: Cozaar 50 MG PO SCH (11:27)
[2018-12-01] MEDS: COREG 12.5 MG PO SCH (11:27)
[2018-12-01] MEDS: ZOLOFT 50 MG TABLET PO SCH (11:27)
[2018-12-01] MEDS: Klor Con 10 MEQ PO SCH ×3 (11:27→22:12)
[2018-12-01] MEDS: Ranexa 500 MG PO SCH ×2 (11:27→22:14)
[2018-12-01] MEDS: ECOTRIN 81 MG PO SCH (11:27)
[2018-12-01] MEDS: PRADAXA 75 MG PO SCH ×2 (11:28→22:13)
[2018-12-01] MEDS: Apresoline 25 MG TABLET PO SCH ×3 (11:28→22:11)
[2018-12-01] MEDS: Protonix 40MG Tablet PO SCH (11:28)
[2018-12-01] MEDS: Pepcid 20 MG PO SCH (11:28)
--- NOTE | 2018-12-01 11:57 | XRAY ---
Indication: Elevated d-dimer. Two-dimensional sonogram and color Doppler imaging of the major venous vessels of the left and right leg was performed. Comparison: Right leg venous ultrasound January 16, 2015. No thrombus seen in the examined deep venous vessels of the left and right leg including greater saphenous vein. Veins demonstrate normal compressibility. Venous waveforms are normal with and without augmentation. Impression: Left and right legs negative for DVT.
[2018-12-01] MEDS: FISH OIL 1,000 MG CAPSULE PO SCH ×2 (12:38→22:12)
[2018-12-01] MEDS: DUONEB 0.5-3 MG/3 ml Neb IH SCH ×2 (16:30→20:21)
[2018-12-02] MEDS: DUONEB 0.5-3 MG/3 ml Neb IH SCH ×2 (07:10→11:07)
[2018-12-02 07:24] VITALS: PULSE 59
[2018-12-02] MEDS: NovoLOG Insulin SQ PRN (08:40)
[2018-12-02 08:47] VITALS: BP 134/63; O2SAT 94
--- NOTE | 2018-12-02 09:32 | PCM.DS ---
Discharge Summary Date of Admission: 11/30/18 12:53 Admitting Physician: LUIS GALLOWAY Primary Care Provider: LUIS GALLOWAY Allergies Allergies adhesive Allergy (Mild, Verified 11/30/18 09:16) Blisters morphine Allergy (Verified 11/30/18 09:16) anaphylaxis pt went into respiratory failure and acute renal failure the last time she had morphine. "I was in a coma for a week" Penicillins Allergy (Verified 11/30/18 09:16) Rash povidone-iodine [From Betadine] Allergy (Verified 11/30/18 09:16) BLISTERES soap [From Betadine] Allergy (Verified 11/30/18 09:16) Blisters Hospital Summary - Hospital Course Hospital Course: patient was admitted following outpatient removal of bilateral arm lipomas. she was complaining of shortness of breath in PACU. chest xray showed some atelectasis but no failure, bnp was normal and has been stable on 2L oxygen which she is on chronically. she has not had any chest pain, tropoinin and ekg are normal. d-dimer was elevated, had negative venous dopplers of BLE. she has a low risk based on wells criteria, she is on pradaxa and after discussion she agrees with no further pursuit, has some underlying copd and on no bronchodilators. she has been short of breath for a year and is essentially at her usual baseline at the time of discharge. - Vitals & Intake/Output Vital Signs: Vital Signs Temperature 97.1 F 12/02/18 08:45 Pulse Rate 59 L 12/02/18 08:45 Respiratory Rate 20 12/02/18 08:45 Blood Pressure 134/63 12/02/18 08:45 O2 Sat by Pulse Oximetry 94 L 12/02/18 08:45 Oxygen-Last Documented O2 Percentage 2 Liters = 28% Intake & Output: Intake & Output 11/29/18 11/30/18 12/01/18 12/02/18 11:59 11:59 11:59 11:59 Intake Total 1200 2480 Output Total 800 1900 Balance 400 580 Weight 109.6 kg 112.7 kg - Lab Result Diagrams: 11/30/18 17:01 11/30/18 17:01 Lab Results-Last 24 Hrs: Accuchecks Date 12/01/18 Date 12/01/18 Date 12/01/18 Time 21:30 Time 16:30 Time 11:30 Accucheck Value: 309 Accucheck Value: 166 Accucheck Value: 233 Micro Results-Entire Visit: Accuchecks Date 12/01/18 Date 12/01/18 Date 12/01/18 Time 21:30 Time 16:30 Time 11:30 Accucheck Value: 309 Accucheck Value: 166 Accucheck Value: 233 - Radiology Exams Ordered Rad Exams-Entire Visit: Radiology Procedures Category Date Time Status CHEST 1 VIEW (PORTABLE) Routine Exams 11/30/18 11:50 Completed VENOUS BILATERAL EXTREMITY [US] Stat Exams 12/01/18 10:21 Completed - Procedures and Test Procedures and Tests throughout Hospitalization: Therapy Orders & Screens 11/30/18 11:46 Respiratory Therapy Assessment DAILY Comment: Diagnosis: bilateral arm lipomas 11/30/18 12:06 Flutter Therapy UD Comment: Diagnosis: bilateral arm lipomas 11/30/18 13:17 Oxygen NASAL CANNULA 2 lpm Comment: Diagnosis: bilateral arm lipomas 11/30/18 13:33 RT Screen per Nursing Assess ONCE Comment: Protocol Order Physician Instructions: Greater than 3 points order RT Admission Screen Reason For Exam: Triggered on Admission Diagnosis: Difficulty Breathing Acute Exac Diagnosis: Difficulty Breathing Acute Exac Pneumonia: No Home O2: Yes: HS Asthma: No CHF: No Home CPAP/BIPAP: Yes: CPAP Home Nebs/MDI: No Total Points: 10 11/30/18 16:40 EKG ROUTINE Comment: Diagnosis: Difficulty Breathing Acute Exac 11/30/18 16:41 Incentive Spirometry UD Comment: Diagnosis: Difficulty Breathing Acute Exac 11/30/18 21:00 BiPap/CPAP ROUTINE Comment: PER HOME SETTINGS ([id number] WITH 2LPM OXYGEN) Diagnosis: bilateral arm lipomas 12/01/18 07:00 Peak Expiratory Flow Rate DAILY Comment: Reason For Exam: Diagnosis: Difficulty Breathing Acute Exac Discharge Exam General Appearance: no apparent distress, obese Neurologic Exam: alert, oriented x 3 Respiratory Exam: lungs clear, No respiratory distress, No accessory muscle use , No rhonchi, No wheezing Cardiovascular Exam: regular rate/rhythm, normal heart sounds Gastrointestinal/Abdomen Exam: soft, No tenderness, No mass Extremity Exam: normal inspection, normal range of motion Skin Exam: normal color, warm, dry Final Diagnosis/Problem List - Final Discharge Diagnosis/Problem (1) Shortness of breath Current Visit: Yes Status: Acute Code(s): R06.02 - SHORTNESS OF BREATH (2) Chronic obstructive lung disease Current Visit: No Status: Chronic Assessment & Plan: nebulizer and duonebs for home, f/u in office. no steroids due to lack of wheezing on exam Code(s): J44.9 - CHRONIC OBSTRUCTIVE PULMONARY DISEASE, UNSPECIFIED (3) Essential hypertension Current Visit: No Status: Chronic Code(s): I10 - ESSENTIAL (PRIMARY) HYPERTENSION (4) Paroxysmal atrial fibrillation Current Visit: No Status: Chronic Code(s): I48.0 - PAROXYSMAL ATRIAL FIBRILLATION - Discharge Disposition: Home, Self-Care Condition: Stable Prescriptions: New Albuterol/Ipratropium 3ml Neb* [DUONEB 0.5-3 MG/3 ml Neb] 3 ml IH QID PRN # 100 ampul.neb Nebulizer and Compressor [Easy Air Compressor Nebulizer] 1 each UD #1 each Continue HydrALAzine HCL 25 MG TAB [Apresoline 25 MG TABLET] 25 mg PO TID Torsemide 20 mg [Demadex 20 mg] 20 mg PO BID Potassium Chloride [Klor-Con] 20 meq PO TID Allopurinol 100 mg [Zyloprim 100 mg] 100 mg PO BID Dabigatran Etexilate Mesylate [Pradaxa] 150 mg PO BID Ranolazine [Ranexa] 1,000 mg PO BID Sertraline HCl 50 mg [Zoloft 50 mg Tablet] 50 mg PO DAILY Losartan Potassium [Cozaar] 100 mg PO DAILY Isosorbide Mononitrate 30 mg [Imdur 30 MG] 30 mg PO DAILY Carvedilol 12.5 mg [Coreg 12.5 mg] 12.5 mg PO DAILY Amiodarone HCl 200 mg [Cordarone 200 MG] 200 mg PO DAILY PANTOPRAZOLE 40 mg Tablet [Protonix 40MG Tablet] 40 mg PO QAM Famotidine [Pepcid] 40 mg PO DAILY Multivitamin [Daily Multivitamin] 1 each PO DAILY [place]-3S/Dha/Epa/Fish Oil [[place] Power 1,050 mg Softgel] 1,050 mg PO BID Aspirin 81 mg PO DAILY Insulin Lispro [Humalog] 1 unit CONT-SUBQ UD Follow up with: LUIS GALLOWAY MD [Primary Care Provider] - 1 Week
[2018-12-02] MEDS: PRADAXA 75 MG PO SCH (11:25)
[2018-12-02] MEDS: Ranexa 500 MG PO SCH (11:26)
[2018-12-02] MEDS: Cordarone 200 MG PO SCH (11:27)
[2018-12-02] MEDS: Protonix 40MG Tablet PO SCH (11:27)
[2018-12-02] MEDS: ECOTRIN 81 MG PO SCH (11:27)
[2018-12-02] MEDS: DEMADEX 20 MG PO SCH (11:27)
[2018-12-02] MEDS: ZYLOPRIM 100 MG PO SCH (11:27)
[2018-12-02] MEDS: Pepcid 20 MG PO SCH (11:27)
[2018-12-02] MEDS: Klor Con 10 MEQ PO SCH (11:27)
[2018-12-02] MEDS: ZOLOFT 50 MG TABLET PO SCH (11:27)
[2018-12-02] MEDS: COREG 12.5 MG PO SCH (11:27)
[2018-12-02] MEDS: Imdur 30 MG PO SCH (11:28)
[2018-12-02] MEDS: Apresoline 25 MG TABLET PO SCH (11:28)
[2018-12-02] MEDS: Cozaar 50 MG PO SCH (11:28)
[2018-12-02] MEDS: THERAGRAN MULTIVITAMIN PO SCH (11:28)
== END 2018-12-02 12:10 | disposition home or self-care (01) ==
LOC: SDC 08:33 → MED SURG 12:53
PROVIDERS: ADMIT Family Medicine; ATTEND Family Medicine
DX: R06.02 Shortness of breath (principal); J44.9 Chronic obstructive pulmonary disease, unspecified; D17.22 Benign lipomatous neoplasm of skin and subcutaneous tissue of left arm; D17.21 Benign lipomatous neoplasm of skin and subcutaneous tissue of right arm; I10 Essential (primary) hypertension; I48.0 Paroxysmal atrial fibrillation; M79.605 Pain in left leg; M79.604 Pain in right leg; E11.9 Type 2 diabetes mellitus without complications; I51.9 Heart disease, unspecified; Z79.01 Long term (current) use of anticoagulants; Z79.899 Other long term (current) drug therapy
CPT/HCPCS: 36415; 71045; 80048; 82962; 83036; 83880; 84484; 85025; 85379; 93005; 93268; 93970; 94150; 94640; 94660; 94667; 94760; J0330; J0690; J1170; J1940; J2250; J2704; J3010; A9270-GY; G0378

== ENCOUNTER 2019-01-02 15:27 | Inpatient (IN) | payer MEDICARE, BC ==
[2019-01-02] MEDS ORDERED: NovoLOG Insulin SQ ONE (15:34)
[2019-01-02 15:45] LABS: Lactic Acid 2.9 (0.4-2.0)
[2019-01-02] MEDS ORDERED: Sodium Chloride 0.9% 1000 ML 1,000 ML IV SCH (15:45)
[2019-01-02 15:47] LABS: BASOPHIL % 0.1 % (0.0-0.4); Basophil (Absolute #) 0.01 (0-0.4); Eosinophil % 0.1 % (0.00-5.0); Eosinophil (Absolute #) 0.01 (0-0.5); Granulocyte Absolute (ANC) 10.14 (1.4-6.9); Hematocrit 42.9 % (35-47); Lymphocytes % 10.7 % (24.0-44.0); Mean Cell Volume 92.9 fl (78-100); Mean Corpuscular Hemoglobin 32.5 pg (26-32); Mean Platelet Volume 12.3 fl (6-9.5); Monocyte (Absolute #) 0.74 (0.0-1.3); Monocytes % 6.1 % (0.0-12.0); Platelet Count 208 K/mm3 (150-450); Red Blood Count 4.62 M/mm3 (4.1-5.4); Red Cell Distribution Width 13.5 % (11.5-14.0); White Blood Count 12.2 K/mm3 (4.0-10.5)
[2019-01-02] MEDS ORDERED: Sodium Chloride 0.9% 1000 ML 1,000 ML IV STA (15:47)
[2019-01-02] MEDS ORDERED: Sodium Chloride 0.9% 1000 ML 1,000 ML ONE (15:50)
[2019-01-02] MEDS ORDERED: NovoLOG Insulin ONE (15:50)
[2019-01-02] MEDS ORDERED: NOVOLIN R INSULIN (FOR DRIPS)** 100 UNITS in Sodium Chloride 0.9% 100 ML IVPB 100 ML IV SCH (16:00)
[2019-01-02 16:05] LABS: A-aADO2 29; ABG HEMOGLOBIN 15.1; ABG POTASSIUM 5.6 (3.5-5.1); ABG SITE RIGHT RADIAL; ALLEN TEST OK? YES; ARTERIAL BLD GAS O2 SATURATION 96.5 % (95-100); ARTERIAL BLOOD GAS BASE EXCESS 2.3 (-2.0-2.0); ARTERIAL BLOOD GAS FIO2 21 %; ARTERIAL BLOOD GAS PCO2 39 mmHg (35-45); ARTERIAL BLOOD GAS PO2 72 mmHg (75-100); ARTERIAL BLOOD GAS pH 7.44 (7.35-7.45); CARBOXYHEMOGLOBIN 1.8 % THgb (0.0-6.9); HCO3- 26.5 (22-28); HGB O2 SAT 94.2 g/dF (94-100); Methhemoglobin 0.7 % (1.4-1.5); paO2 pAO1 0.71
--- NOTE | 2019-01-02 16:14 | ERPHSYRPT ---
- History of Present Illness Time Seen by Provider: 01/02/19 16:10 Historian: patient Exam Limitations: no limitations Patient Subjective Stated Complaint: pt reports feeling weak for approx 2 days, states shes been treated recently for hip pain with an injection to the left hip. states today she began to have bilat leg weakness and tightness to the center of the chest. pt complains of intense thirst. pt reports that she has lost a piece to her insulin pump and has not utilized it for four days. pt reports she last checked blood sugar last evening and it was over 600 per her home machine. pt states she took 60 units of Humalog SQ last night around 1800. Triage Nursing Assessment: pt is aox3, pt appears in no acute distress, pupils perrl, afebrile, resps easy and non labored, cap refill < 3 seconds, radial pulses strong and equal, pt skin pink warm dry, no edema appreciated. pt mucous membranes appear dry. pain localized to the mid chest that is non radiating in nature, Physician History: Ms quan is a 68 years old female came to ER via ambulance reports feeling weak for approximately 2 days, states shes been treated recently for hip pain with an injection to the left hip. states today she began to have bilateral leg weakness and tightness to the center of the chest. she complains of intense thirst. pt reports that she has lost a piece to her insulin pump and has not utilized it for four days. pt reports she last checked blood sugar last evening and it was over 600 per her home machine. pt states she took 60 units of Humalog SQ last night around 1800. C/o chest tightness Timing/Duration: yesterday Quality: tightness Location: substernal Chest Pain Radiation: no radiation Severity of Pain-Max: mild Severity of Pain-Current: mild Associated Symptoms: weakness Prior Chest Pain/Cardiac Workup: non-cardiac Nitro Today/Relief: no nitro taken today Aspirin Treatment Today: no aspirin today Allergies/Adverse Reactions: adhesive Allergy (Mild, Verified 01/02/19 16:04) Blisters morphine Allergy (Verified 01/02/19 16:04) anaphylaxis pt went into respiratory failure and acute renal failure the last time she had morphine. "I was in a coma for a week" Penicillins Allergy (Verified 01/02/19 16:04) Rash povidone-iodine [From Betadine] Allergy (Verified 01/02/19 16:04) BLISTERES soap [From Betadine] Allergy (Verified 01/02/19 16:04) Blisters Home Medications: Allopurinol 100 mg [Zyloprim 100 mg] 100 mg PO BID 11/18/18 [History] Amiodarone HCl 200 mg [Cordarone 200 MG] 200 mg PO DAILY 11/18/18 [History ] Aspirin 81 mg PO DAILY 11/18/18 [History] Carvedilol 12.5 mg [Coreg 12.5 mg] 12.5 mg PO DAILY 11/18/18 [History] Dabigatran Etexilate Mesylate [Pradaxa] 150 mg PO BID 11/18/18 [History] Famotidine [Pepcid] 40 mg PO DAILY 11/18/18 [History] HydrALAzine HCL 25 MG TAB [Apresoline 25 MG TABLET] 25 mg PO TID 11/18/18 [History] Insulin Lispro [Humalog] 1 unit CONT-SUBQ UD 11/18/18 [History] Isosorbide Mononitrate 30 mg [Imdur 30 MG] 30 mg PO DAILY 11/18/18 [History ] Losartan Potassium [Cozaar] 100 mg PO DAILY 11/18/18 [History] Multivitamin [Daily Multivitamin] 1 each PO DAILY 11/18/18 [History] Salt Flat-3S/Dha/Epa/Fish Oil [Salt Flat Power 1,050 mg Softgel] 1,050 mg PO BID [History] PANTOPRAZOLE 40 mg Tablet [Protonix 40MG Tablet] 40 mg PO QAM 11/18/18 [ History] Potassium Chloride [Klor-Con] 20 meq PO TID 11/18/18 [History] Ranolazine [Ranexa] 1,000 mg PO BID 11/18/18 [History] Sertraline HCl 50 mg [Zoloft 50 mg Tablet] 50 mg PO DAILY 11/18/18 [History] Torsemide 20 mg [Demadex 20 mg] 20 mg PO BID 11/18/18 [History] Hx Tetanus, Diphtheria Vaccination/Date Given: Yes Hx Influenza Vaccination/Date Given: No Hx Pneumococcal Vaccination/Date Given: Yes Immunizations Up to Date: Yes - Review of Systems Constitutional: Weakness, No Fever, No Chills Eyes: No Symptoms Ears, Nose, & Throat: No Symptoms Respiratory: No Cough, No Dyspnea Cardiac: Other (substernal tightness), No Chest Pain, No Edema, No Syncope Abdominal/Gastrointestinal: No Abdominal Pain, No Nausea, No Vomiting, No Diarrhea Genitourinary Symptoms: No Dysuria Musculoskeletal: No Back Pain, No Neck Pain Skin: No Rash Neurological: No Dizziness, No Focal Weakness, No Sensory Changes Psychological: No Symptoms Endocrine: No Symptoms All Other Systems: Reviewed and Negative - Past Medical History Pertinent Past Medical History: Yes Neurological History: No Pertinent History ENT History: No Pertinent History Cardiac History: Arrhythmia, Coronary Artery Disease, Hypertension, Myocardial Infarction ([place]) Respiratory History: COPD, Pneumonia, Sleep Apnea Endocrine Medical History: Diabetes Type II Musculoskeletal History: Arthritis, Fractures GI Medical History: Hepatitis History: Other Psycho-Social History: Depression Female Reproductive Disorders: No Pertinent History Other Medical History: 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 Heart murmur with afib hx. 2-3 dialysis treatments when on vent due to morphine allergy. Pt has Humalog insulin pump. hx hepatitis A as a child - Past Surgical History Past Surgical History: Yes Neuro Surgical History: No Pertinent History Cardiac: No Pertinent History Respiratory: No Pertinent History Gastrointestinal: Hernia Repair Genitourinary: No Pertinent History Musculoskeletal: No Pertinent History, Orthopedic Surgery Female Surgical History: Hysterectomy Other Surgical History: right hand and wrist x 16 - sinus x 3 -. cyst removed left side. NODULES REMOVED FROM BILATERAL ARMS - Social History Smoking Status: Former smoker How long have you smoked: 2years Exposure to second hand smoke: No Alcohol Use: None Drug Use: none Patient Lives Alone: No Significant Family History: diabetes, hypertension - Female History Hx Now: No - Nursing Vital Signs Nursing Vital Signs: Initial Vital Signs Temperature 98.3 F 01/02/19 15:36 Pulse Rate 68 01/02/19 15:36 Respiratory Rate 20 01/02/19 15:36 Blood Pressure 124/65 01/02/19 15:36 O2 Sat by Pulse Oximetry 93 L 01/02/19 15:36 Pain Scale Pain Intensity 0 - Physical Exam General Appearance: no apparent distress, alert Eye Exam: PERRL/EOMI, eyes nml inspection Ears, Nose, Throat Exam: normal ENT inspection, moist mucous membranes Neck Exam: normal inspection, non-tender, supple, full range of motion Respiratory Exam: normal breath sounds, lungs clear, No respiratory distress Cardiovascular Exam: regular rate/rhythm, normal heart sounds Gastrointestinal/Abdomen Exam: soft, No tenderness, No mass Back Exam: normal inspection, No CVA tenderness, No vertebral tenderness Extremity Exam: normal inspection, normal range of motion Neurologic Exam: alert, oriented x 3, cooperative, normal mood/affect, sensation nml, No motor deficits Skin Exam: normal color, warm, dry SpO2: 93 - Course Nursing assessment & vital signs reviewed: Yes EKG Interpreted by Me: Sinus Rhythm, Non-specific ST Changes Ordered Tests: Active Orders 24 hr Category Date Time Status Computer Architect STAT Care 01/02/19 15:33 Active EKG-ER Only STAT Care 01/02/19 15:32 Active IV Insertion STAT Care 01/02/19 15:32 Active ARTERIAL BLOOD GASES Urgent Lab 01/02/19 15:57 Completed CBC W DIFF Stat Lab 01/02/19 15:40 Completed CMP Stat Lab 01/02/19 15:40 Completed Lactic Acid Stat Lab 01/02/19 15:42 Results NT PRO BNP Stat Lab 01/02/19 15:40 Completed TROPONIN Q3H Lab 01/02/19 15:40 Completed TROPONIN Q3H Lab 01/02/19 18:45 Ordered TROPONIN Q3H Lab 01/02/19 21:45 Ordered TROPONIN Q3H Lab 01/03/19 00:45 Ordered TROPONIN Q3H Lab 01/03/19 03:45 Ordered Transfer Order Routine Transfer 01/02/19 Ordered Medication Summary Generic Name Dose Route Start Last Admin Trade Name Freq PRN Reason Stop Dose Admin Sodium Chloride 1,000 mls @ 50 mls/hr 01/02/19 15:45 01/02/19 15:59 Sodium Chloride 0.9% 1000 Ml IV 02/01/19 15:44 50 mls/hr .Q20H JAMAL Administration Insulin Human Regular 100 101 mls @ 10.1 mls/hr 01/02/19 16:00 01/02/19 16:22 units/ Sodium Chloride IV 02/01/19 15:59 10 units/hr .Q10H JAMAL 10.1 mls/hr Administration 10 UNITS/HR Discontinued Medications Generic Name Dose Route Start Last Admin Trade Name Boaz PRN Reason Stop Dose Admin Sodium Chloride 1,000 mls @ 999 mls/hr 01/02/19 15:47 01/02/19 16:00 Sodium Chloride 0.9% 1000 Ml IV 01/02/19 16:47 999 mls/hr .Q1H1M STA Administration Sodium Chloride Confirm 01/02/19 16:19 Sodium Chloride 0.9% 100 Ml Ivpb Administered 01/02/19 16:20 Dose 100 mls @ ud IV .STK-MED ONE Insulin Aspart 20 unit 01/02/19 15:34 01/02/19 15:59 Novolog Insulin SQ 01/02/19 15:35 20 unit STAT ONE Administration Insulin Aspart Confirm 01/02/19 15:50 Novolog Insulin Administered 01/02/19 15:51 Dose 20 unit .ROUTE .STK-MED ONE Insulin Human Regular Confirm 01/02/19 16:19 Novolin R Administered 01/02/19 16:20 Dose 1 unit .ROUTE .STK-MED ONE Lab/Rad Data: Laboratory Result Diagrams 01/02/19 15:40 01/02/19 15:40 Laboratory Results 01/02/19 01/02/19 01/02/19 Range/Units 15:57 15:42 15:40 WBC (4.0-10.5) K/mm3 RBC (4.1-5.4) M/mm3 Hgb (12.0-16.0) gm/dl Hct (35-47) % MCV (78-100) fl MCH (26-32) pg MCHC (32-36) g/dl RDW (11.5-14.0) % Plt Count (150-450) K/mm3 MPV (6-9.5) fl Gran % (36.0-66.0) % Eos # (Auto) (0-0.5) Absolute Lymphs (auto) (1.0-4.6) Absolute Monos (auto) (0.0-1.3) Lymphocytes % (24.0-44.0) % Monocytes % (0.0-12.0) % Eosinophils % (0.00-5.0) % Basophils % (0.0-0.4) % Absolute Granulocytes (1.4-6.9) Basophils # (0-0.4) Puncture Site RIGHT RADIAL pCO2 39 (35-45) mmHg pO2 72 L (75-100) mmHg Base Excess 2.3 H (-2.0-2.0) O2 Saturation 94.2 (94-100) g/dF ABG pH 7.44 (7.35-7.45) ABG HCO3 26.5 (22-28) ABG O2 Sat (Measured) 96.5 (95-100) % Ángel Test YES A-a Gradient 29 a/A Ratio 0.71 Hemoglobin 15.1 Carboxyhemoglobin 1.8 (0.0-6.9) % THgb Methemoglobin 0.7 L (1.4-1.5) % Temperature 37.0 C POC O2 Flow Rate 21 % Sodium (137-145) mmol/L Potassium 5.6 H (3.5-5.1) mmol/L Chloride (98-107) mmol/L Carbon Dioxide (22-30) mmol/L Anion Gap (5-15) MEQ/L BUN (7-17) mg/dL Creatinine (0.52-1.04) mg/dL Estimated GFR ML/MIN Glucose (74-106) mg/dL Lactic Acid 2.9 H (0.4-2.0) Calcium (8.4-10.2) mg/dL Total Bilirubin (0.2-1.3) mg/dL AST (14-36) U/L ALT (0-35) U/L Alkaline Phosphatase (38-126) U/L Troponin I < 0.012 (0.000-0.034) ng/mL NT-Pro-B Natriuret Pep (0-900) pg/mL Serum Total Protein (6.3-8.2) g/dL Albumin (3.5-5.0) g/dL 01/02/19 01/02/19 Range/Units 15:40 15:40 WBC 12.2 H (4.0-10.5) K/mm3 RBC 4.62 (4.1-5.4) M/mm3 Hgb 15.0 (12.0-16.0) gm/dl Hct 42.9 (35-47) % MCV 92.9 (78-100) fl MCH 32.5 H (26-32) pg MCHC 35.0 (32-36) g/dl RDW 13.5 (11.5-14.0) % Plt Count 208 (150-450) K/mm3 MPV 12.3 H (6-9.5) fl Gran % 83.0 H (36.0-66.0) % Eos # (Auto) 0.01 (0-0.5) Absolute Lymphs (auto) 1.30 (1.0-4.6) Absolute Monos (auto) 0.74 (0.0-1.3) Lymphocytes % 10.7 L (24.0-44.0) % Monocytes % 6.1 (0.0-12.0) % Eosinophils % 0.1 (0.00-5.0) % Basophils % 0.1 (0.0-0.4) % Absolute Granulocytes 10.14 H (1.4-6.9) Basophils # 0.01 (0-0.4) Puncture Site pCO2 (35-45) mmHg pO2 (75-100) mmHg Base Excess (-2.0-2.0) O2 Saturation (94-100) g/dF ABG pH (7.35-7.45) ABG HCO3 (22-28) ABG O2 Sat (Measured) (95-100) % Ángel Test A-a Gradient a/A Ratio Hemoglobin Carboxyhemoglobin (0.0-6.9) % THgb Methemoglobin (1.4-1.5) % Temperature C POC O2 Flow Rate % Sodium 125 L (137-145) mmol/L Potassium 5.9 H (3.5-5.1) mmol/L Chloride 81 L (98-107) mmol/L Carbon Dioxide 26 (22-30) mmol/L Anion Gap 23.8 H (5-15) MEQ/L BUN 58 H (7-17) mg/dL Creatinine 1.64 H (0.52-1.04) mg/dL Estimated GFR 33.0 ML/MIN Glucose 777 H* (74-106) mg/dL Lactic Acid (0.4-2.0) Calcium 9.8 (8.4-10.2) mg/dL Total Bilirubin 1.10 (0.2-1.3) mg/dL AST 21 (14-36) U/L ALT 22 (0-35) U/L Alkaline Phosphatase 182 H (38-126) U/L Troponin I (0.000-0.034) ng/mL NT-Pro-B Natriuret Pep 230 (0-900) pg/mL Serum Total Protein 7.1 (6.3-8.2) g/dL Albumin 4.3 (3.5-5.0) g/dL - Progress Progress: improved Air Movement: good Blood Culture(s) Obtained: No Antibiotics given: No Discussed with Dr.: Younger Counseled pt/family regarding: lab results, diagnosis, need for follow-up - Departure Departure Disposition: Observation Clinical Impression: Hyperglycemia without ketosis Hyperglycemia due to type 2 diabetes mellitus Qualifiers: Diabetes mellitus terminal worker insulin use: with terminal worker use Qualified Code(s): E11.65 - Type 2 diabetes mellitus with hyperglycemia; Z79.4 - joint terminal attack controller (current ) use of insulin Diabetes mellitus Qualifiers: Diabetes mellitus type: type 2 Diabetes mellitus fdc insulin use: with fdc use Diabetes mellitus complication status: with hyperglycemia Qualified Code(s): E11.65 - Type 2 diabetes mellitus with hyperglycemia; Z79.4 - USP (current) use of insulin Condition: Fair Critical Care Time: Yes Critical Care Time(excluding separately billable procedures): Critical 30-74 mins Referrals: LUIS GALLOWAY MD [Primary Care Provider] -
[2019-01-02 16:18] LABS: ALBUMIN 4.3 g/dL (3.5-5.0); ANION GAP 23.8 MEQ/L (5-15); BILIRUBIN,TOTAL 1.1 mg/dL (0.2-1.3); Calcium 9.8 mg/dL (8.4-10.2); Creatinine 1 1.64 mg/dL (0.52-1.04); Potassium 5.9 mmol/L (3.5-5.1); Total Protein 7.1 g/dL (6.3-8.2)
[2019-01-02] MEDS ORDERED: Sodium Chloride 0.9% 100 ML IVPB 100 ML IV ONE (16:19)
[2019-01-02] MEDS ORDERED: NovoLIN R ONE (16:19)
[2019-01-02] MEDS: Sodium Chloride 0.9% 1000 ML 1,000 ML IV SCH (17:44)
[2019-01-02] MEDS ORDERED: DUONEB 0.5-3 MG/3 ml Neb IH PRN (17:46)
[2019-01-02] MEDS: NovoLIN R SQ PRN (20:26)
[2019-01-02] MEDS ORDERED: DEMADEX 20 MG PO SCH (22:00)
[2019-01-02 22:09] LABS: Appearance SLIGHTLY CLOUDY (CLEAR); Bilirubin NEGATIVE (NEGATIVE); Blood NEGATIVE Ery/ul (0-5); Glucose >=500 mg/dL (NEGATIVE); Ketones NEGATIVE (NEGATIVE); Leukocyte Esterase MODERATE (NEGATIVE); Nitrite NEGATIVE (NEGATIVE); Protein,Urine Dip NEGATIVE (Negative); Specific Gravity 1.017 (1.005-1.025); Urobilinogen NEGATIVE mg/dL (0-1)
[2019-01-02] MEDS: THERAGRAN MULTIVITAMIN PO SCH (22:09)
[2019-01-02] MEDS: Apresoline 25 MG TABLET PO SCH (22:09)
[2019-01-02] MEDS: ZYLOPRIM 100 MG PO SCH (22:10)
[2019-01-02] MEDS: Ranexa 500 MG PO SCH (22:10)
[2019-01-02] MEDS: PRADAXA 75 MG PO SCH (22:10)
[2019-01-02] MEDS: Klor Con 10 MEQ PO SCH (22:11)
[2019-01-02 22:30] LABS: Lactic Acid 2.6 (0.4-2.0)
[2019-01-03] MEDS: NovoLIN R SQ PRN ×6 (00:12→20:20)
[2019-01-03] MEDS: Sodium Chloride 0.9% 1000 ML 1,000 ML IV SCH ×3 (02:50→21:25)
[2019-01-03 04:10] LABS: ALBUMIN 3.6 g/dL (3.5-5.0); BILIRUBIN,TOTAL 0.8 mg/dL (0.2-1.3); Creatinine 1 1.43 mg/dL (0.52-1.04); Potassium 4.3 mmol/L (3.5-5.1); Total Protein 6.3 g/dL (6.3-8.2)
[2019-01-03 04:17] LABS: Basophil (Absolute #) 0 (0-0.4); Eosinophil % 0.1 % (0.00-5.0); Eosinophil (Absolute #) 0.01 (0-0.5); Granulocyte Absolute (ANC) 8.35 (1.4-6.9); Granulocytes % 74.9 % (36.0-66.0); Hematocrit 39.7 % (35-47); Hemoglobin 13.8 gm/dl (12.0-16.0); Lymphocyte (Absolute #) 1.94 (1.0-4.6); Lymphocytes % 17.4 % (24.0-44.0); Mean Cell Volume 92.8 fl (78-100); Mean Corpuscular Hemoglobin 32.2 pg (26-32); Mean Corpuscular Hgb Concent. 34.8 g/dl (32-36); Mean Platelet Volume 12.2 fl (6-9.5); Monocyte (Absolute #) 0.85 (0.0-1.3); Monocytes % 7.6 % (0.0-12.0); Platelet Count 187 K/mm3 (150-450); Red Blood Count 4.28 M/mm3 (4.1-5.4); Red Cell Distribution Width 13.6 % (11.5-14.0); White Blood Count 11.2 K/mm3 (4.0-10.5)
[2019-01-03] MEDS ORDERED: Sodium Chloride 0.9% 1000 ML 1,000 ML IV STA ×2 (07:29→08:40)
[2019-01-03] MEDS ORDERED: Artificial Tears 15 ML OP SCH (08:45)
--- NOTE | 2019-01-03 09:38 | PCM.HP ---
History of Present Illness - Chief Complaint Chief Complaint: weakness and chest tightness for 4 days, History of Present Illness: Ms quan is a 68 years old female came to ER via ambulance reports feeling weak for approximately 2 days, states shes been treated recently for hip pain with an injection to the left hip. states today she began to have bilateral leg weakness and tightness to the center of the chest. she complains of intense thirst. pt reports that she has lost a piece to her insulin pump and has not utilized it for four days. pt reports she last checked blood sugar last evening and it was over 600 per her home machine. pt states she took 60 units of Humalog SQ last night around 1800. C/o chest tightness Timing/Duration: yesterday Quality: tightness Location: substernal Chest Pain Radiation: no radiation Severity of Pain-Max: mild Severity of Pain-Current: mild Associated Symptoms: weakness Prior Chest Pain/Cardiac Workup: non-cardiac Nitro Today/Relief: no nitro taken today Aspirin Treatment Today: no aspirin today - Review of Systems Constitutional: Weakness, No Fever, No Chills Eyes: No Symptoms Ears, Nose, & Throat: No Symptoms Respiratory: Short Of Breath, No Cough Cardiac: Chest Pain, No Edema, No Syncope Abdominal/Gastrointestinal: No Abdominal Pain, No Nausea, No Vomiting, No Diarrhea Genitourinary Symptoms: No Dysuria Musculoskeletal: No Back Pain, No Neck Pain Skin: No Rash Neurological: No Dizziness, No Focal Weakness, No Sensory Changes Psychological: No Symptoms Endocrine: No Symptoms Hematologic/Lymphatic: No Symptoms Immunological/Allergic: No Symptoms Medications & Allergies Home Medications: Home Medication List Allopurinol 100 mg [Zyloprim 100 mg] 100 mg PO BID 11/18/18 [History Confirmed 01/02/19] Amiodarone HCl 200 mg [Cordarone 200 MG] 200 mg PO DAILY 11/18/18 [ History Confirmed 01/02/19] Aspirin 81 mg PO DAILY 11/18/18 [History Confirmed 01/02/19] Carvedilol 12.5 mg [Coreg 12.5 mg] 12.5 mg PO DAILY 11/18/18 [History Confirmed 01/02/19] Dabigatran Etexilate Mesylate [Pradaxa] 150 mg PO BID 11/18/18 [History Confirmed 01/02/19] Famotidine [Pepcid] 40 mg PO DAILY 11/18/18 [History Confirmed 01/02/19] HydrALAzine HCL 25 MG TAB [Apresoline 25 MG TABLET] 25 mg PO TID 11/18/18 [History Confirmed 01/02/19] Insulin Lispro [Humalog] 1 unit CONT-SUBQ UD 11/18/18 [History Confirmed ] Isosorbide Mononitrate 30 mg [Imdur 30 MG] 30 mg PO DAILY 11/18/18 [ History Confirmed 01/02/19] Losartan Potassium [Cozaar] 100 mg PO DAILY 11/18/18 [History Confirmed 01/02/19 ] Multivitamin [Daily Multivitamin] 0.5 each PO BID 11/18/18 [History Confirmed ] [place]-3S/Dha/Epa/Fish Oil [[place] Power 1,050 mg Softgel] 1,050 mg PO BID [History Confirmed 01/02/19] PANTOPRAZOLE 40 mg Tablet [Protonix 40MG Tablet] 40 mg PO DAILY 11/18/18 [ History Confirmed 01/02/19] Ranolazine [Ranexa] 1,000 mg PO BID 11/18/18 [History Confirmed 01/02/19] Sertraline HCl 50 mg [Zoloft 50 mg Tablet] 50 mg PO DAILY 11/18/18 [History Confirmed 01/02/19] Torsemide 20 mg [Demadex 20 mg] 20 mg PO BID 11/18/18 [History Confirmed 01/02/19] Albuterol/Ipratropium 3ml Neb* [DUONEB 0.5-3 MG/3 ml Neb] 3 ml IH QID PRN PRN 01/02/19 [History Confirmed 01/02/19] Beta-Carotene(A) W-C & E/Min [Ocuvite Tablet] 1 tab PO DAILY 01/02/19 [ History Confirmed 01/02/19] Carboxymethylcellulose Sodium [Refresh Liquigel] 1 drop OP HS 01/02/19 [History Confirmed 01/02/19] Polysorbate 80/Glycerin [Refresh Dry Eye Therapy Drops] 1 drop OP DAILY [History Confirmed 01/02/19] Potassium Chloride 10 Meq Tab* [Klor Con 10 MEQ] 20 meq PO HS 01/02/19 [ History Confirmed 01/02/19] Potassium Chloride 10 Meq Tab* [Klor Con 10 MEQ] 40 meq PO DAILY 01/02/19 [ History Confirmed 01/02/19] Allergies/Adverse Reactions: Allergies Allergy/AdvReac Type Severity Reaction Status Date / Time adhesive Allergy Mild Blisters Verified 01/02/19 18:06 aspirin Allergy Difficulty Verified 01/02/19 18:06 Breathing morphine Allergy anaphylaxis Verified 01/02/19 18:06 Penicillins Allergy Rash Verified 01/02/19 18:06 povidone-iodine Allergy BLISTERES Verified 01/02/19 18:06 [From Betadine] soap [From Betadine] Allergy Blisters Verified 01/02/19 18:06 - Past Medical History Past Medical History: Yes Neurological History: No Pertinent History ENT History: No Pertinent History Cardiac History: Arrhythmia, Congestive Heart Failure, Coronary Artery Disease, Hypertension, Myocardial Infarction (HI) Respiratory History: CHF, COPD, Pneumonia, Sleep Apnea Endocrine Medical History: Diabetes Type II Musculoskelatal History: Arthritis, Fractures GI Medical History: Hepatitis History: Other Pyscho-Social History: Depression Reproductive Disorders: No Pertinent History Comment: 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 Heart murmur with afib hx. 2-3 dialysis treatments when on vent due to morphine allergy. Pt has Humalog insulin pump. hx hepatitis A as a child - Female History Are you now?: No - Past Surgical History Past Surgical History: Yes Neuro Surgical History: No Pertinent History Cardiac History: No Pertinent History Respiratory Surgery: No Pertinent History GI Surgical History: Hernia Repair Genitourinary Surgical Hx: No Pertinent History Musculskeletal Surgical Hx: No Pertinent History, Orthopedic Surgery Female Surgical History: Hysterectomy Other Surgical History: right hand and wrist x 16 - sinus x 3 -. cyst removed left side. NODULES REMOVED FROM BILATERAL ARMS - Social History Smoking Status: Former smoker How long have you smoked: 2years Exposure to second hand smoke: No Alcohol: None Drug Use: none Significant Family History: diabetes, hypertension - Physical Exam Vital Signs: Vital Signs - 24 hr Temp Pulse Pulse Resp BP Pulse Ox 01/03/19 07:58 97.8 F 64 16 122/51 93 L 01/03/19 07:16 97 01/03/19 04:00 97.8 F 61 16 126/48 93 L 01/02/19 23:34 98.3 F 64 15 117/53 95 01/02/19 22:32 68 21 93 L 01/02/19 20:00 97.8 F 64 18 118/52 94 L 01/02/19 17:58 97.7 F 65 14 121/53 97 01/02/19 17:47 98 01/02/19 16:57 93 L 01/02/19 16:52 66 16 135/59 97 01/02/19 15:36 98.3 F 69 68 20 124/65 93 L Oxygen-Last 24 hours O2 Percentage 2 Liters = 28% O2 Percentage 3 Liters = 32% General Appearance: no apparent distress, alert Neurologic Exam: alert, oriented x 3, cooperative, normal mood/affect, nml cerebellar function, nml station & gait, sensation nml, No motor deficits Eye Exam: PERRL/EOMI, eyes nml inspection Ears, Nose, Throat Exam: normal ENT inspection, TMs normal, pharynx normal, moist mucous membranes Neck Exam: normal inspection, non-tender, supple, full range of motion Respiratory Exam: normal breath sounds, lungs clear, No respiratory distress Cardiovascular Exam: regular rate/rhythm, normal heart sounds, normal peripheral pulses Gastrointestinal/Abdomen Exam: soft, normal bowel sounds, No tenderness, No mass Back Exam: normal inspection, normal range of motion, No CVA tenderness, No vertebral tenderness Extremity Exam: normal inspection, normal range of motion, pelvis stable Skin Exam: normal color, warm, dry, No rash Lymphatic Exam: No adenopathy Results - Labs Lab/Micro Results: Accuchecks Accucheck Value: 226 Accucheck Value: 196 Accucheck Value: 269 Accucheck Value: 301 Lab Results-Last 24 Hours 01/02/19 01/02/19 01/02/19 Range/Units 15:40 15:40 15:40 WBC 12.2 H (4.0-10.5) K/mm3 RBC 4.62 (4.1-5.4) M/mm3 Hgb 15.0 (12.0-16.0) gm/dl Hct 42.9 (35-47) % MCV 92.9 (78-100) fl MCH 32.5 H (26-32) pg MCHC 35.0 (32-36) g/dl RDW 13.5 (11.5-14.0) % Plt Count 208 (150-450) K/mm3 MPV 12.3 H (6-9.5) fl Gran % 83.0 H (36.0-66.0) % Eos # (Auto) 0.01 (0-0.5) Absolute Lymphs (auto) 1.30 (1.0-4.6) Absolute Monos (auto) 0.74 (0.0-1.3) Lymphocytes % 10.7 L (24.0-44.0) % Monocytes % 6.1 (0.0-12.0) % Eosinophils % 0.1 (0.00-5.0) % Basophils % 0.1 (0.0-0.4) % Absolute Granulocytes 10.14 H (1.4-6.9) Basophils # 0.01 (0-0.4) Puncture Site pCO2 (35-45) mmHg pO2 (75-100) mmHg Base Excess (-2.0-2.0) O2 Saturation (94-100) g/dF ABG pH (7.35-7.45) ABG HCO3 (22-28) ABG O2 Sat (Measured) (95-100) % Ángel Test A-a Gradient a/A Ratio Hemoglobin Carboxyhemoglobin (0.0-6.9) % THgb Methemoglobin (1.4-1.5) % Temperature C POC O2 Flow Rate % Sodium 125 L (137-145) mmol/L Potassium 5.9 H (3.5-5.1) mmol/L Chloride 81 L (98-107) mmol/L Carbon Dioxide 26 (22-30) mmol/L Anion Gap 23.8 H (5-15) MEQ/L BUN 58 H (7-17) mg/dL Creatinine 1.64 H (0.52-1.04) mg/dL Estimated GFR 33.0 ML/MIN Glucose 777 H* (74-106) mg/dL Lactic Acid (0.4-2.0) Calcium 9.8 (8.4-10.2) mg/dL Total Bilirubin 1.10 (0.2-1.3) mg/dL AST 21 (14-36) U/L ALT 22 (0-35) U/L Alkaline Phosphatase 182 H (38-126) U/L Troponin I < 0.012 (0.000-0.034) ng/mL NT-Pro-B Natriuret Pep 230 (0-900) pg/mL Serum Total Protein 7.1 (6.3-8.2) g/dL Albumin 4.3 (3.5-5.0) g/dL Urine Color (YELLOW) Urine Appearance (CLEAR) Urine pH (5-6) Ur Specific [place] (1.005-1.025) Urine Protein (Negative) Urine Ketones (NEGATIVE) Urine Blood (0-5) Kervin/ul Urine Nitrite (NEGATIVE) Urine Bilirubin (NEGATIVE) Urine Urobilinogen (0-1) mg/dL Ur Leukocyte Esterase (NEGATIVE) Urine WBC (Auto) (0-5) /HPF Urine RBC (Auto) (0-2) /HPF U Epithel Cells (Auto) (FEW) /HPF Urine Bacteria (Auto) (NEGATIVE) /HPF Urine Culture Reflexed (NO) Urine Glucose (NEGATIVE) mg/dL 01/02/19 01/02/19 01/02/19 Range/Units 15:42 15:57 21:33 WBC (4.0-10.5) K/mm3 RBC (4.1-5.4) M/mm3 Hgb (12.0-16.0) gm/dl Hct (35-47) % MCV (78-100) fl MCH (26-32) pg MCHC (32-36) g/dl RDW (11.5-14.0) % Plt Count (150-450) K/mm3 MPV (6-9.5) fl Gran % (36.0-66.0) % Eos # (Auto) (0-0.5) Absolute Lymphs (auto) (1.0-4.6) Absolute Monos (auto) (0.0-1.3) Lymphocytes % (24.0-44.0) % Monocytes % (0.0-12.0) % Eosinophils % (0.00-5.0) % Basophils % (0.0-0.4) % Absolute Granulocytes (1.4-6.9) Basophils # (0-0.4) Puncture Site RIGHT RADIAL pCO2 39 (35-45) mmHg pO2 72 L (75-100) mmHg Base Excess 2.3 H (-2.0-2.0) O2 Saturation 94.2 (94-100) g/dF ABG pH 7.44 (7.35-7.45) ABG HCO3 26.5 (22-28) ABG O2 Sat (Measured) 96.5 (95-100) % Ángel Test YES A-a Gradient 29 a/A Ratio 0.71 Hemoglobin 15.1 Carboxyhemoglobin 1.8 (0.0-6.9) % THgb Methemoglobin 0.7 L (1.4-1.5) % Temperature 37.0 C POC O2 Flow Rate 21 % Sodium (137-145) mmol/L Potassium 5.6 H (3.5-5.1) mmol/L Chloride (98-107) mmol/L Carbon Dioxide (22-30) mmol/L Anion Gap (5-15) MEQ/L BUN (7-17) mg/dL Creatinine (0.52-1.04) mg/dL Estimated GFR ML/MIN Glucose (74-106) mg/dL Lactic Acid 2.9 H (0.4-2.0) Calcium (8.4-10.2) mg/dL Total Bilirubin (0.2-1.3) mg/dL AST (14-36) U/L ALT (0-35) U/L Alkaline Phosphatase (38-126) U/L Troponin I (0.000-0.034) ng/mL NT-Pro-B Natriuret Pep (0-900) pg/mL Serum Total Protein (6.3-8.2) g/dL Albumin (3.5-5.0) g/dL Urine Color YELLOW (YELLOW) Urine Appearance SLIGHTLY CLOUDY (CLEAR) Urine pH 5.0 (5-6) Ur Specific [place] 1.017 (1.005-1.025) Urine Protein NEGATIVE (Negative) Urine Ketones NEGATIVE (NEGATIVE) Urine Blood NEGATIVE (0-5) Kervin/ul Urine Nitrite NEGATIVE (NEGATIVE) Urine Bilirubin NEGATIVE (NEGATIVE) Urine Urobilinogen NEGATIVE (0-1) mg/dL Ur Leukocyte Esterase MODERATE (NEGATIVE) Urine WBC (Auto) 16-25 (0-5) /HPF Urine RBC (Auto) 6-10 (0-2) /HPF U Epithel Cells (Auto) NONE (FEW) /HPF Urine Bacteria (Auto) NONE (NEGATIVE) /HPF Urine Culture Reflexed YES (NO) Urine Glucose >=500 (NEGATIVE) mg/dL 01/02/19 01/02/19 01/03/19 Range/Units 22:23 22:32 03:58 WBC (4.0-10.5) K/mm3 RBC (4.1-5.4) M/mm3 Hgb (12.0-16.0) gm/dl Hct (35-47) % MCV (78-100) fl MCH (26-32) pg MCHC (32-36) g/dl RDW (11.5-14.0) % Plt Count (150-450) K/mm3 MPV (6-9.5) fl Gran % (36.0-66.0) % Eos # (Auto) (0-0.5) Absolute Lymphs (auto) (1.0-4.6) Absolute Monos (auto) (0.0-1.3) Lymphocytes % (24.0-44.0) % Monocytes % (0.0-12.0) % Eosinophils % (0.00-5.0) % Basophils % (0.0-0.4) % Absolute Granulocytes (1.4-6.9) Basophils # (0-0.4) Puncture Site pCO2 (35-45) mmHg pO2 (75-100) mmHg Base Excess (-2.0-2.0) O2 Saturation (94-100) g/dF ABG pH (7.35-7.45) ABG HCO3 (22-28) ABG O2 Sat (Measured) (95-100) % Ángel Test A-a Gradient a/A Ratio Hemoglobin Carboxyhemoglobin (0.0-6.9) % THgb Methemoglobin (1.4-1.5) % Temperature C POC O2 Flow Rate % Sodium (137-145) mmol/L Potassium (3.5-5.1) mmol/L Chloride (98-107) mmol/L Carbon Dioxide (22-30) mmol/L Anion Gap (5-15) MEQ/L BUN (7-17) mg/dL Creatinine (0.52-1.04) mg/dL Estimated GFR ML/MIN Glucose (74-106) mg/dL Lactic Acid 2.6 H (0.4-2.0) Calcium (8.4-10.2) mg/dL Total Bilirubin (0.2-1.3) mg/dL AST (14-36) U/L ALT (0-35) U/L Alkaline Phosphatase (38-126) U/L Troponin I < 0.012 < 0.012 (0.000-0.034) ng/mL NT-Pro-B Natriuret Pep (0-900) pg/mL Serum Total Protein (6.3-8.2) g/dL Albumin (3.5-5.0) g/dL Urine Color (YELLOW) Urine Appearance (CLEAR) Urine pH (5-6) Ur Specific [place] (1.005-1.025) Urine Protein (Negative) Urine Ketones (NEGATIVE) Urine Blood (0-5) Kervin/ul Urine Nitrite (NEGATIVE) Urine Bilirubin (NEGATIVE) Urine Urobilinogen (0-1) mg/dL Ur Leukocyte Esterase (NEGATIVE) Urine WBC (Auto) (0-5) /HPF Urine RBC (Auto) (0-2) /HPF U Epithel Cells (Auto) (FEW) /HPF Urine Bacteria (Auto) (NEGATIVE) /HPF Urine Culture Reflexed (NO) Urine Glucose (NEGATIVE) mg/dL 01/03/19 01/03/19 01/03/19 Range/Units 03:58 03:58 07:40 WBC 11.2 H (4.0-10.5) K/mm3 RBC 4.28 (4.1-5.4) M/mm3 Hgb 13.8 (12.0-16.0) gm/dl Hct 39.7 (35-47) % MCV 92.8 (78-100) fl MCH 32.2 H (26-32) pg MCHC 34.8 (32-36) g/dl RDW 13.6 (11.5-14.0) % Plt Count 187 (150-450) K/mm3 MPV 12.2 H (6-9.5) fl Gran % 74.9 H (36.0-66.0) % Eos # (Auto) 0.01 (0-0.5) Absolute Lymphs (auto) 1.94 (1.0-4.6) Absolute Monos (auto) 0.85 (0.0-1.3) Lymphocytes % 17.4 L (24.0-44.0) % Monocytes % 7.6 (0.0-12.0) % Eosinophils % 0.1 (0.00-5.0) % Basophils % 0.0 (0.0-0.4) % Absolute Granulocytes 8.35 H (1.4-6.9) Basophils # 0 (0-0.4) Puncture Site pCO2 (35-45) mmHg pO2 (75-100) mmHg Base Excess (-2.0-2.0) O2 Saturation (94-100) g/dF ABG pH (7.35-7.45) ABG HCO3 (22-28) ABG O2 Sat (Measured) (95-100) % Ángel Test A-a Gradient a/A Ratio Hemoglobin Carboxyhemoglobin (0.0-6.9) % THgb Methemoglobin (1.4-1.5) % Temperature C POC O2 Flow Rate % Sodium 133 L D (137-145) mmol/L Potassium 4.3 D (3.5-5.1) mmol/L Chloride 96 L D (98-107) mmol/L Carbon Dioxide 26 (22-30) mmol/L Anion Gap 15.0 (5-15) MEQ/L BUN 48 H (7-17) mg/dL Creatinine 1.43 H (0.52-1.04) mg/dL Estimated GFR 38.7 ML/MIN Glucose 206 H (74-106) mg/dL Lactic Acid 1.0 (0.4-2.0) Calcium 9.0 (8.4-10.2) mg/dL Total Bilirubin 0.80 (0.2-1.3) mg/dL AST 15 (14-36) U/L ALT 18 (0-35) U/L Alkaline Phosphatase 87 (38-126) U/L Troponin I (0.000-0.034) ng/mL NT-Pro-B Natriuret Pep (0-900) pg/mL Serum Total Protein 6.3 (6.3-8.2) g/dL Albumin 3.6 (3.5-5.0) g/dL Urine Color (YELLOW) Urine Appearance (CLEAR) Urine pH (5-6) Ur Specific [place] (1.005-1.025) Urine Protein (Negative) Urine Ketones (NEGATIVE) Urine Blood (0-5) Kervin/ul Urine Nitrite (NEGATIVE) Urine Bilirubin (NEGATIVE) Urine Urobilinogen (0-1) mg/dL Ur Leukocyte Esterase (NEGATIVE) Urine WBC (Auto) (0-5) /HPF Urine RBC (Auto) (0-2) /HPF U Epithel Cells (Auto) (FEW) /HPF Urine Bacteria (Auto) (NEGATIVE) /HPF Urine Culture Reflexed (NO) Urine Glucose (NEGATIVE) mg/dL Accuchecks Accucheck Value: 226 Accucheck Value: 196 Accucheck Value: 269 Accucheck Value: 301 - Other Procedures and Tests Respiratory Therapy 01/02/19 17:47 Oxygen NASAL CANNULA 2 lpm Respiratory Therapy Assessment DAILY 01/02/19 21:00 BiPap/CPAP ROUTINE Assessment/Plan (1) Hyperglycemia due to type 2 diabetes mellitus Current Visit: Yes Status: Acute Qualifiers: 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 morphine Allergy (Verified 01/02/19 18:06) anaphylaxis pt went into respiratory failure and acute renal failure the last time she had morphine. "I was in a coma for a week" Penicillins Allergy (Verified 01/02/19 18:06) Rash povidone-iodine [From Betadine] Allergy (Verified 01/02/19 18:06) BLISTERES soap [From Betadine] Allergy (Verified 01/02/19 18:06) Blisters Active Medications Albuterol/Ipratropium (Duoneb 0.5-3 Mg/3 Ml Neb) 3 ml IH QIDPRN PRN PRN Reason: SHORTNESS OF BREATH/WHEEZING Stop: 02/01/19 17:45 Allopurinol (Zyloprim 100 Mg) 100 mg PO BID JAMAL Stop: 02/01/19 21:59 Last Admin: 01/02/19 22:10 Dose: 100 mg Amiodarone HCl (Cordarone 200 Mg) 200 mg PO DAILY JAMAL Stop: 02/02/19 09:59 Artificial Tears (Artificial Tears 15 Ml) 0 ml OP UD JAMAL Stop: 02/02/19 08:44 Aspirin (Ecotrin 81 Mg) 81 mg PO DAILY JAMAL Stop: 02/02/19 09:59 Carvedilol (Coreg 12.5 Mg) 12.5 mg PO DAILY [facility] Stop: 02/02/19 09:59 Dabigatran (Pradaxa 75 Mg) 150 mg PO BID [facility] Stop: 02/01/19 21:59 Last Admin: 01/02/19 22:10 Dose: 150 mg Famotidine (Pepcid 20 Mg) 40 mg PO DAILY [facility] Stop: 02/02/19 09:59 Fish Oil (Fish Oil 1,000 Mg Capsule) 1,000 mg PO BID AJMAL Stop: 02/02/19 09:59 Hydralazine HCl (Apresoline 25 Mg Tablet) 25 mg PO TID [facility] Stop: 02/01/19 21:59 Last Admin: 01/02/19 22:09 Dose: 25 mg Ceftriaxone Sodium/Dextrose (Rocephin 1 Gm-D5w 50 Ml Bag) 1 g in 50 mls @ 100 mls/hr IV Q24H10 [facility] Stop: 02/02/19 09:59 Sodium Chloride (Sodium Chloride 0.9% 1000 Ml) 1,000 mls @ 150 mls/hr IV .Q6H40M JAMAL Stop: 02/01/19 17:33 Last Admin: 01/03/19 02:50 Dose: 100 mls/hr Insulin Human Regular (Novolin R) 0 unit SQ UD PRN PRN Reason: HYPERGLYCEMIA Stop: 02/01/19 17:33 Last Admin: 01/03/19 08:22 Dose: 6 unit Isosorbide Mononitrate (Imdur 30 Mg) 30 mg PO DAILY [facility] Stop: 02/02/19 09:59 Losartan Potassium (Cozaar 50 Mg) 100 mg PO DAILY JAMAL Stop: 02/02/19 09:59 Multivitamins Therapeutic (Theragran Multivitamin) 0.5 tab PO BID JAMAL Stop: 02/01/19 21:59 Last Admin: 01/02/19 22:09 Dose: 0.5 tab Multivitamins/Minerals (Ocuvite Tablet) 1 tab PO DAILY JAMAL Stop: 02/02/19 09:59 Pantoprazole Sodium (Protonix 40mg Tablet) 40 mg PO DAILY JAMAL Stop: 02/02/19 09:59 Potassium Chloride (Klor Con 10 Meq) 20 meq PO HS JAMAL Stop: 02/01/19 21:59 Last Admin: 01/02/19 22:11 Dose: Not Given Potassium Chloride (Klor Con 10 Meq) 40 meq PO DAILY JAMAL Stop: 02/02/19 09:59 Ranolazine (Ranexa 500 Mg) 1,000 mg PO BID JAMAL Stop: 02/01/19 21:59 Last Admin: 01/02/19 22:10 Dose: 1,000 mg Sertraline HCl (Zoloft 50 Mg Tablet) 50 mg PO DAILY JAMAL Stop: 02/02/19 09:59 Torsemide (Demadex 20 Mg) 20 mg PO BID DIURETIC JAMAL Stop: 02/02/19 09:59 Intake & Output 01/02/19 01/03/19 11:59 11:59 Intake Total 200 Output Total 1000 Balance -800 Weight 103.1 kg Orders 01/02/19 17:25 Place in Observation ROUTINE 01/02/19 17:34 Up Ad Radha ROUTINE Accucheck Q4H Code Status Order ROUTINE IV Care Q6H Miscellaneous Nursing Order ROUTINE Insulin Regular, Human [NovoLIN R] See Dose Instructions SQ UD PRN NaCl 0.9% 1000 ml [Sodium Chloride 0.9% 1000 ML] 1,000 ml IV 150 mls/hr 01/02/19 17:54 Cardio-Pulmonary Rehab .as ordered 01/02/19 19:23 Telemetry q6h 01/02/19 21:33 CULTURE,URINE Urgent 01/02/19 22:00 Allopurinol 100 mg [Zyloprim 100 mg] 100 mg PO BID Dabigatran Etexilate 75 mg [Pradaxa 75 mg] 150 mg PO BID HydrALAzine HCL 25 MG TAB [Apresoline 25 MG TABLET] 25 mg PO TID Multivitamins,Therapeutic Tab* [Theragran Multivitamin] 0.5 tab PO BID Potassium Chloride 10 Meq Tab* [Klor Con 10 MEQ] 20 meq PO HS Ranolazine 500 MG [Ranexa 500 MG] 1,000 mg PO BID 01/02/19 Dinner 1800 Calorie ADA 01/03/19 08:45 Polyvinyl Alcohol Tears [Artificial Tears 15 ML] 0 ml OP UD 01/03/19 10:00 Amiodarone HCl 200 mg [Cordarone 200 MG] 200 mg PO DAILY Aspirin EC 81 mg [Ecotrin 81 mg] 81 mg PO DAILY Beta-Carotene(A) W-C & E/Min [Ocuvite Tablet] 1 tab PO DAILY Carvedilol 12.5 mg [Coreg 12.5 mg] 12.5 mg PO DAILY Ceftriaxone 1 GM/50 ML PREMIX* [ROCEPHIN 1 Gm-D5w 50 ml Bag] 1 g in 50 ml IV Q24H10 Famotidine 20 mg [Pepcid 20 MG] 40 mg PO DAILY Isosorbide Mononitrate 30 mg [Imdur 30 MG] 30 mg PO DAILY Losartan Potassium 50 mg [Cozaar 50 MG] 100 mg PO DAILY [place]-3 Fatty Acids/Fish Oil [Fish Oil 1,000 mg Capsule] 1,000 mg PO BID PANTOPRAZOLE 40 mg Tablet [Protonix 40MG Tablet] 40 mg PO DAILY Potassium Chloride 10 Meq Tab* [Klor Con 10 MEQ] 40 meq PO DAILY Sertraline HCl 50 mg [Zoloft 50 mg Tablet] 50 mg PO DAILY Torsemide 20 mg [Demadex 20 mg] 20 mg PO BID DIURETIC Lab Tests 01/02/19 01/02/19 01/02/19 15:40 15:40 15:40 WBC 12.2 H RBC 4.62 Hgb 15.0 Hct 42.9 MCV 92.9 MCH 32.5 H MCHC 35.0 RDW 13.5 Plt Count 208 MPV 12.3 H Gran % 83.0 H Eos # (Auto) 0.01 Absolute Lymphs (auto) 1.30 Absolute Monos (auto) 0.74 Lymphocytes % 10.7 L Monocytes % 6.1 Eosinophils % 0.1 Basophils % 0.1 Absolute Granulocytes 10.14 H Basophils # 0.01 Puncture Site pCO2 pO2 Base Excess O2 Saturation ABG pH ABG HCO3 ABG O2 Sat (Measured) Ángel Test A-a Gradient a/A Ratio Hemoglobin Carboxyhemoglobin Methemoglobin Temperature POC O2 Flow Rate Sodium 125 L Potassium 5.9 H Chloride 81 L Carbon Dioxide 26 Anion Gap 23.8 H BUN 58 H Creatinine 1.64 H Estimated GFR 33.0 Glucose 777 H* Lactic Acid Calcium 9.8 Total Bilirubin 1.10 AST 21 ALT 22 Alkaline Phosphatase 182 H Troponin I < 0.012 NT-Pro-B Natriuret Pep 230 Serum Total Protein 7.1 Albumin 4.3 Urine Color Urine Appearance Urine pH Ur Specific [place] Urine Protein Urine Ketones Urine Blood Urine Nitrite Urine Bilirubin Urine Urobilinogen Ur Leukocyte Esterase Urine WBC (Auto) Urine RBC (Auto) U Epithel Cells (Auto) Urine Bacteria (Auto) Urine Culture Reflexed Urine Glucose 01/02/19 01/02/19 01/02/19 15:42 15:57 21:33 WBC RBC Hgb Hct MCV MCH MCHC RDW Plt Count MPV Gran % Eos # (Auto) Absolute Lymphs (auto) Absolute Monos (auto) Lymphocytes % Monocytes % Eosinophils % Basophils % Absolute Granulocytes Basophils # Puncture Site RIGHT RADIAL pCO2 39 pO2 72 L Base Excess 2.3 H O2 Saturation 94.2 ABG pH 7.44 ABG HCO3 26.5 ABG O2 Sat (Measured) 96.5 Ángel Test YES A-a Gradient 29 a/A Ratio 0.71 Hemoglobin 15.1 Carboxyhemoglobin 1.8 Methemoglobin 0.7 L Temperature 37.0 POC O2 Flow Rate 21 Sodium Potassium 5.6 H Chloride Carbon Dioxide Anion Gap BUN Creatinine Estimated GFR Glucose Lactic Acid 2.9 H Calcium Total Bilirubin AST ALT Alkaline Phosphatase Troponin I NT-Pro-B Natriuret Pep Serum Total Protein Albumin Urine Color YELLOW Urine Appearance SLIGHTLY CLOUDY Urine pH 5.0 Ur Specific [place] 1.017 Urine Protein NEGATIVE Urine Ketones NEGATIVE Urine Blood NEGATIVE Urine Nitrite NEGATIVE Urine Bilirubin NEGATIVE Urine Urobilinogen NEGATIVE Ur Leukocyte Esterase MODERATE Urine WBC (Auto) 16-25 Urine RBC (Auto) 6-10 U Epithel Cells (Auto) NONE Urine Bacteria (Auto) NONE Urine Culture Reflexed YES Urine Glucose >=500 01/02/19 01/02/19 01/03/19 22:23 22:32 03:58 WBC RBC Hgb Hct MCV MCH MCHC RDW Plt Count MPV Gran % Eos # (Auto) Absolute Lymphs (auto) Absolute Monos (auto) Lymphocytes % Monocytes % Eosinophils % Basophils % Absolute Granulocytes Basophils # Puncture Site pCO2 pO2 Base Excess O2 Saturation ABG pH ABG HCO3 ABG O2 Sat (Measured) Ángel Test A-a Gradient a/A Ratio Hemoglobin Carboxyhemoglobin Methemoglobin Temperature POC O2 Flow Rate Sodium Potassium Chloride Carbon Dioxide Anion Gap BUN Creatinine Estimated GFR Glucose Lactic Acid 2.6 H Calcium Total Bilirubin AST ALT Alkaline Phosphatase Troponin I < 0.012 < 0.012 NT-Pro-B Natriuret Pep Serum Total Protein Albumin Urine Color Urine Appearance Urine pH Ur Specific [place] Urine Protein Urine Ketones Urine Blood Urine Nitrite Urine Bilirubin Urine Urobilinogen Ur Leukocyte Esterase Urine WBC (Auto) Urine RBC (Auto) U Epithel Cells (Auto) Urine Bacteria (Auto) Urine Culture Reflexed Urine Glucose 01/03/19 01/03/19 01/03/19 03:58 03:58 07:40 WBC 11.2 H RBC 4.28 Hgb 13.8 Hct 39.7 MCV 92.8 MCH 32.2 H MCHC 34.8 RDW 13.6 Plt Count 187 MPV 12.2 H Gran % 74.9 H Eos # (Auto) 0.01 Absolute Lymphs (auto) 1.94 Absolute Monos (auto) 0.85 Lymphocytes % 17.4 L Monocytes % 7.6 Eosinophils % 0.1 Basophils % 0.0 Absolute Granulocytes 8.35 H Basophils # 0 Puncture Site pCO2 pO2 Base Excess O2 Saturation ABG pH ABG HCO3 ABG O2 Sat (Measured) Ángel Test A-a Gradient a/A Ratio Hemoglobin Carboxyhemoglobin Methemoglobin Temperature POC O2 Flow Rate Sodium 133 L D Potassium 4.3 D Chloride 96 L D Carbon Dioxide 26 Anion Gap 15.0 BUN 48 H Creatinine 1.43 H Estimated GFR 38.7 Glucose 206 H Lactic Acid 1.0 Calcium 9.0 Total Bilirubin 0.80 AST 15 ALT 18 Alkaline Phosphatase 87 Troponin I NT-Pro-B Natriuret Pep Serum Total Protein 6.3 Albumin 3.6 Urine Color Urine Appearance Urine pH Ur Specific [place] Urine Protein Urine Ketones Urine Blood Urine Nitrite Urine Bilirubin Urine Urobilinogen Ur Leukocyte Esterase Urine WBC (Auto) Urine RBC (Auto) U Epithel Cells (Auto) Urine Bacteria (Auto) Urine Culture Reflexed Urine Glucose Code(s): E11.65 - TYPE 2 DIABETES MELLITUS WITH HYPERGLYCEMIA (2) Hyperglycemia without ketosis Current Visit: Yes Status: Acute Assessment & Plan: Chief Complaint Diagnosis Hyperglycemia without ketosis Allergies Allergy/AdvReac Type Severity Reaction Status Date / Time adhesive Allergy Mild Blisters Verified 01/02/19 18:06 aspirin Allergy Difficulty Verified 01/02/19 18:06 Breathing morphine Allergy anaphylaxis Verified 01/02/19 18:06 Penicillins Allergy Rash Verified 01/02/19 18:06 povidone-iodine Allergy BLISTERES Verified 01/02/19 18:06 [From Betadine] soap [From Betadine] Allergy Blisters Verified 01/02/19 18:06 Vital Signs (Last 24 hours) Temp Pulse Pulse Resp BP Pulse Ox 01/03/19 07:58 97.8 F 64 16 122/51 93 L 01/03/19 07:16 97 01/03/19 04:00 97.8 F 61 16 126/48 93 L 01/02/19 23:34 98.3 F 64 15 117/53 95 01/02/19 22:32 68 21 93 L 01/02/19 20:00 97.8 F 64 18 118/52 94 L 01/02/19 17:58 97.7 F 65 14 121/53 97 01/02/19 17:47 98 01/02/19 16:57 93 L 01/02/19 16:52 66 16 135/59 97 01/02/19 15:36 98.3 F 69 68 20 124/65 93 L Home Medications Medication Instructions Recorded Confirmed Last Taken Type Albuterol/Ipratropium 3ml Neb* 3 ml IH QID PRN PRN 01/02/19 01/02/19 01/02/19 History [DUONEB 0.5-3 MG/3 ml Neb] Beta-Carotene(A) W-C & E/Min 1 tab PO DAILY 01/02/19 01/02/19 01/02/19 History [Ocuvite Tablet] Carboxymethylcellulose Sodium 1 drop OP HS 01/02/19 01/02/19 01/01/19 History [Refresh Liquigel] Polysorbate 80/Glycerin [Refresh 1 drop OP DAILY 01/02/19 01/02/19 01/02/19 History Dry Eye Therapy Drops] Potassium Chloride 10 Meq Tab* 20 meq PO HS 01/02/19 01/02/19 01/01/19 History [Klor Con 10 MEQ] Potassium Chloride 10 Meq Tab* 40 meq PO DAILY 01/02/19 01/02/19 01/02/19 History [Klor Con 10 MEQ] Current Medications Generic Name Dose Route Start Last Admin Trade Name Freq PRN Reason Stop Dose Admin Albuterol/Ipratropium 3 ml 01/02/19 17:46 Duoneb 0.5-3 Mg/3 Ml Neb IH 02/01/19 17:45 QIDPRN PRN SHORTNESS OF BREATH/WHEEZING Allopurinol 100 mg 01/02/19 22:00 01/02/19 22:10 Zyloprim 100 Mg PO 02/01/19 21:59 100 mg BID JAMAL Administration Amiodarone HCl 200 mg 01/03/19 10:00 Cordarone 200 Mg PO 02/02/19 09:59 DAILY JAMAL Artificial Tears 0 ml 01/03/19 08:45 Artificial Tears 15 Ml OP 02/02/19 08:44 UD JAMAL Aspirin 81 mg 01/03/19 10:00 Ecotrin 81 Mg PO 02/02/19 09:59 DAILY JAMAL Carvedilol 12.5 mg 01/03/19 10:00 Coreg 12.5 Mg PO 02/02/19 09:59 DAILY JAMAL Dabigatran 150 mg 01/02/19 22:00 01/02/19 22:10 Pradaxa 75 Mg PO 02/01/19 21:59 150 mg BID JAMAL Administration Famotidine 40 mg 01/03/19 10:00 Pepcid 20 Mg PO 02/02/19 09:59 DAILY JAMAL Fish Oil 1,000 mg 01/03/19 10:00 Fish Oil 1,000 Mg Capsule PO 02/02/19 09:59 BID JAMAL Hydralazine HCl 25 mg 01/02/19 22:00 01/02/19 22:09 Apresoline 25 Mg Tablet PO 02/01/19 21:59 25 mg TID JAMAL Administration Ceftriaxone Sodium/Dextrose 1 g in 50 mls @ 100 mls/hr 01/03/19 10:00 Rocephin 1 Gm-D5w 50 Ml Bag IV 02/02/19 09:59 Q24H10 JAMAL Sodium Chloride 1,000 mls @ 150 mls/hr 01/02/19 17:34 01/03/19 02:50 Sodium Chloride 0.9% 1000 Ml IV 02/01/19 17:33 100 mls/hr .Q6H40M JAMAL Administration Insulin Human Regular 0 unit 01/02/19 17:34 01/03/19 08:22 Novolin R SQ 02/01/19 17:33 6 unit UD PRN Administration HYPERGLYCEMIA Isosorbide Mononitrate 30 mg 01/03/19 10:00 Imdur 30 Mg PO 02/02/19 09:59 DAILY JAMAL Losartan Potassium 100 mg 01/03/19 10:00 Cozaar 50 Mg PO 02/02/19 09:59 DAILY JAMAL Multivitamins Therapeutic 0.5 tab 01/02/19 22:00 01/02/19 22:09 Theragran Multivitamin PO 02/01/19 21:59 0.5 tab BID JAMAL Administration Multivitamins/Minerals 1 tab 01/03/19 10:00 Ocuvite Tablet PO 02/02/19 09:59 DAILY JAMAL Pantoprazole Sodium 40 mg 01/03/19 10:00 Protonix 40mg Tablet PO 02/02/19 09:59 DAILY JAMAL Potassium Chloride 20 meq 01/02/19 22:00 01/02/19 22:11 Klor Con 10 Meq PO 02/01/19 21:59 Not Given HS JAMAL Potassium Chloride 40 meq 01/03/19 10:00 Klor Con 10 Meq PO 02/02/19 09:59 DAILY JAMAL Ranolazine 1,000 mg 01/02/19 22:00 01/02/19 22:10 Ranexa 500 Mg PO 02/01/19 21:59 1,000 mg BID JAMAL Administration Sertraline HCl 50 mg 01/03/19 10:00 Zoloft 50 Mg Tablet PO 02/02/19 09:59 DAILY JAMAL Torsemide 20 mg 01/03/19 10:00 Demadex 20 Mg PO 02/02/19 09:59 BID DIURETIC JAMAL Discontinued Medications Generic Name Dose Route Start Last Admin Trade Name Boaz PRN Reason Stop Dose Admin Fish Oil 1,000 mg 01/03/19 10:00 Fish Oil 1,000 Mg Capsule PO 02/02/19 09:59 DAILY JAMAL Sodium Chloride 1,000 mls @ 50 mls/hr 01/02/19 15:45 01/02/19 15:59 Sodium Chloride 0.9% 1000 Ml IV 02/01/19 15:44 50 mls/hr .Q20H JAMAL Administration Insulin Human Regular 100 101 mls @ 10.1 mls/hr 01/02/19 16:00 01/02/19 16:22 units/ Sodium Chloride IV 02/01/19 15:59 10 units/hr .Q10H JAMAL 10.1 mls/hr Administration 10 UNITS/HR Sodium Chloride 1,000 mls @ 999 mls/hr 01/02/19 15:47 01/02/19 17:29 Sodium Chloride 0.9% 1000 Ml IV 01/02/19 16:47 Infused .Q1H1M STA Infusion Sodium Chloride Confirm 01/02/19 16:19 Sodium Chloride 0.9% 100 Ml Ivpb Administered 01/02/19 16:20 Dose 100 mls @ ud IV .STK-MED ONE Sodium Chloride Confirm 01/02/19 15:50 Sodium Chloride 0.9% 1000 Ml Administered 01/02/19 15:51 Dose 1,000 mls @ ud .ROUTE .STK-MED ONE Sodium Chloride 1,000 mls @ 999 mls/hr 01/03/19 07:29 01/03/19 07:38 Sodium Chloride 0.9% 1000 Ml IV 01/03/19 08:29 999 mls/hr .Q1H1M STA Administration Insulin Aspart 20 unit 01/02/19 15:34 01/02/19 15:59 Novolog Insulin SQ 01/02/19 15:35 20 unit STAT ONE Administration Insulin Aspart Confirm 01/02/19 15:50 Novolog Insulin Administered 01/02/19 15:51 Dose 20 unit .ROUTE .STK-MED ONE Insulin Human Regular Confirm 01/02/19 16:19 Novolin R Administered 01/02/19 16:20 Dose 1 unit .ROUTE .STK-MED ONE Torsemide 20 mg 01/02/19 22:00 01/02/19 22:09 Demadex 20 Mg PO 02/01/19 21:59 20 mg BID JAMAL Administration Intake & Output (Last 24 hours) 12/31/18 01/01/19 01/02/19 01/03/19 11:59 11:59 11:59 11:59 Intake Total 200 Output Total 1000 Balance -800 Weight 103.1 kg Microbiology Results (Last 24 hours) 01/02/19 21:33 Clean Catch Midstream Urine Culture - Pending Laboratory Results (Last 24 hours) 01/03/19 01/03/19 01/03/19 07:40 03:58 03:58 WBC 11.2 H RBC 4.28 Hgb 13.8 Hct 39.7 MCV 92.8 MCH 32.2 H MCHC 34.8 RDW 13.6 Plt Count 187 MPV 12.2 H Gran % 74.9 H Eos # (Auto) 0.01 Absolute Lymphs (auto) 1.94 Absolute Monos (auto) 0.85 Lymphocytes % 17.4 L Monocytes % 7.6 Eosinophils % 0.1 Basophils % 0.0 Absolute Granulocytes 8.35 H Basophils # 0 Puncture Site pCO2 pO2 Base Excess O2 Saturation ABG pH ABG HCO3 ABG O2 Sat (Measured) Ángel Test A-a Gradient a/A Ratio Hemoglobin Carboxyhemoglobin Methemoglobin Temperature POC O2 Flow Rate Sodium 133 L D Potassium 4.3 D Chloride 96 L D Carbon Dioxide 26 Anion Gap 15.0 BUN 48 H Creatinine 1.43 H Estimated GFR 38.7 Glucose 206 H Lactic Acid 1.0 Calcium 9.0 Total Bilirubin 0.80 AST 15 ALT 18 Alkaline Phosphatase 87 Troponin I NT-Pro-B Natriuret Pep Serum Total Protein 6.3 Albumin 3.6 Urine Color Urine Appearance Urine pH Ur Specific [place] Urine Protein Urine Ketones Urine Blood Urine Nitrite Urine Bilirubin Urine Urobilinogen Ur Leukocyte Esterase Urine WBC (Auto) Urine RBC (Auto) U Epithel Cells (Auto) Urine Bacteria (Auto) Urine Culture Reflexed Urine Glucose 01/03/19 01/02/19 01/02/19 03:58 22:32 22:23 WBC RBC Hgb Hct MCV MCH MCHC RDW Plt Count MPV Gran % Eos # (Auto) Absolute Lymphs (auto) Absolute Monos (auto) Lymphocytes % Monocytes % Eosinophils % Basophils % Absolute Granulocytes Basophils # Puncture Site pCO2 pO2 Base Excess O2 Saturation ABG pH ABG HCO3 ABG O2 Sat (Measured) Ángel Test A-a Gradient a/A Ratio Hemoglobin Carboxyhemoglobin Methemoglobin Temperature POC O2 Flow Rate Sodium Potassium Chloride Carbon Dioxide Anion Gap BUN Creatinine Estimated GFR Glucose Lactic Acid 2.6 H Calcium Total Bilirubin AST ALT Alkaline Phosphatase Troponin I < 0.012 < 0.012 NT-Pro-B Natriuret Pep Serum Total Protein Albumin Urine Color Urine Appearance Urine pH Ur Specific [place] Urine Protein Urine Ketones Urine Blood Urine Nitrite Urine Bilirubin Urine Urobilinogen Ur Leukocyte Esterase Urine WBC (Auto) Urine RBC (Auto) U Epithel Cells (Auto) Urine Bacteria (Auto) Urine Culture Reflexed Urine Glucose 01/02/19 01/02/19 01/02/19 21:33 15:57 15:42 WBC RBC Hgb Hct MCV MCH MCHC RDW Plt Count MPV Gran % Eos # (Auto) Absolute Lymphs (auto) Absolute Monos (auto) Lymphocytes % Monocytes % Eosinophils % Basophils % Absolute Granulocytes Basophils # Puncture Site RIGHT RADIAL pCO2 39 pO2 72 L Base Excess 2.3 H O2 Saturation 94.2 ABG pH 7.44 ABG HCO3 26.5 ABG O2 Sat (Measured) 96.5 Ángel Test YES A-a Gradient 29 a/A Ratio 0.71 Hemoglobin 15.1 Carboxyhemoglobin 1.8 Methemoglobin 0.7 L Temperature 37.0 POC O2 Flow Rate 21 Sodium Potassium 5.6 H Chloride Carbon Dioxide Anion Gap BUN Creatinine Estimated GFR Glucose Lactic Acid 2.9 H Calcium Total Bilirubin AST ALT Alkaline Phosphatase Troponin I NT-Pro-B Natriuret Pep Serum Total Protein Albumin Urine Color YELLOW Urine Appearance SLIGHTLY CLOUDY Urine pH 5.0 Ur Specific [place] 1.017 Urine Protein NEGATIVE Urine Ketones NEGATIVE Urine Blood NEGATIVE Urine Nitrite NEGATIVE Urine Bilirubin NEGATIVE Urine Urobilinogen NEGATIVE Ur Leukocyte Esterase MODERATE Urine WBC (Auto) 16-25 Urine RBC (Auto) 6-10 U Epithel Cells (Auto) NONE Urine Bacteria (Auto) NONE Urine Culture Reflexed YES Urine Glucose >=500 01/02/19 01/02/19 01/02/19 15:40 15:40 15:40 WBC 12.2 H RBC 4.62 Hgb 15.0 Hct 42.9 MCV 92.9 MCH 32.5 H MCHC 35.0 RDW 13.5 Plt Count 208 MPV 12.3 H Gran % 83.0 H Eos # (Auto) 0.01 Absolute Lymphs (auto) 1.30 Absolute Monos (auto) 0.74 Lymphocytes % 10.7 L Monocytes % 6.1 Eosinophils % 0.1 Basophils % 0.1 Absolute Granulocytes 10.14 H Basophils # 0.01 Puncture Site pCO2 pO2 Base Excess O2 Saturation ABG pH ABG HCO3 ABG O2 Sat (Measured) Ángel Test A-a Gradient a/A Ratio Hemoglobin Carboxyhemoglobin Methemoglobin Temperature POC O2 Flow Rate Sodium 125 L Potassium 5.9 H Chloride 81 L Carbon Dioxide 26 Anion Gap 23.8 H BUN 58 H Creatinine 1.64 H Estimated GFR 33.0 Glucose 777 H* Lactic Acid Calcium 9.8 Total Bilirubin 1.10 AST 21 ALT 22 Alkaline Phosphatase 182 H Troponin I < 0.012 NT-Pro-B Natriuret Pep 230 Serum Total Protein 7.1 Albumin 4.3 Urine Color Urine Appearance Urine pH Ur Specific [place] Urine Protein Urine Ketones Urine Blood Urine Nitrite Urine Bilirubin Urine Urobilinogen Ur Leukocyte Esterase Urine WBC (Auto) Urine RBC (Auto) U Epithel Cells (Auto) Urine Bacteria (Auto) Urine Culture Reflexed Urine Glucose Orders (Last 24 hours) Category Date Time Status Up Ad Radha ROUTINE Activity 01/02/19 17:34 Active Accucheck Q4H Care 01/02/19 17:34 Active Branding Machine Operator STAT Care 01/02/19 15:33 Completed Code Status Order ROUTINE Care 01/02/19 17:34 Active EKG-ER Only STAT Care 01/02/19 15:32 Completed IV Care Q6H Care 01/02/19 17:34 Active IV Insertion STAT Care 01/02/19 15:32 Completed Miscellaneous Nursing Order ROUTINE Care 01/02/19 17:[address] in Observation ROUTINE Care 01/02/19 17:25 Active Telemetry q6h Care 01/02/19 19:23 Active Cardio-Pulmonary Rehab .as ordered Cons 01/02/19 17:54 Active Infection Control Consult Cons 01/02/19 18:41 Active Communications Station Manager/Discharge Plan Cons 01/02/19 18:41 Active 1800 Calorie ADA Diet 01/02/19 Dinner Active Nutritional Admission Screen Diet 01/02/19 18:41 Active ARTERIAL BLOOD GASES Urgent Lab 01/02/19 15:57 Completed CBC W DIFF AM.LAB Lab 01/03/19 03:58 Completed CBC W DIFF Stat Lab 01/02/19 15:40 Completed CMP AM.LAB Lab 01/03/19 03:58 Completed CMP Stat Lab 01/02/19 15:40 Completed CULTURE,URINE Urgent Lab 01/02/19 21:33 Received Lactic Acid Stat Lab 01/02/19 15:42 Completed Lactic Acid Stat Lab 01/02/19 22:23 Completed Lactic Acid Stat Lab 01/03/19 07:40 Completed NT PRO BNP Stat Lab 01/02/19 15:40 Completed TROPONIN Q3H Lab 01/02/19 15:40 Completed TROPONIN Q3H Lab 01/02/19 22:32 Completed TROPONIN Q3H Lab 01/03/19 03:58 Completed UA W/RFX UR CULTURE Urgent Lab 01/02/19 21:33 Completed Albuterol/Ipratropium 3ml Neb* [DUONEB 0.5-3 MG/3 ml Med 01/02/19 17:46 Active Neb] 3 ml IH QIDPRN PRN Allopurinol 100 mg [Zyloprim 100 mg] Med 01/02/19 22:00 Active 100 mg PO BID Amiodarone HCl 200 mg [Cordarone 200 MG] Med 01/03/19 10:00 Active 200 mg PO DAILY Aspirin EC 81 mg [Ecotrin 81 mg] Med 01/03/19 10:00 Active 81 mg PO DAILY Beta-Carotene(A) W-C & E/Min [Ocuvite Tablet] Med 01/03/19 10:00 Active 1 tab PO DAILY Carvedilol 12.5 mg [Coreg 12.5 mg] Med 01/03/19 10:00 Active 12.5 mg PO DAILY Ceftriaxone 1 GM/50 ML PREMIX* [ROCEPHIN 1 Gm-D5w 50 ml Med 01/03/19 10:00 Active Bag] 1 g in 50 ml IV Q24H10 Dabigatran Etexilate 75 mg [Pradaxa 75 mg] Med 01/02/19 22:00 Active 150 mg PO BID Famotidine 20 mg [Pepcid 20 MG] Med 01/03/19 10:00 Active 40 mg PO DAILY HydrALAzine HCL 25 MG TAB [Apresoline 25 MG TABLET Med 01/02/19 22:00 Active *] 25 mg PO TID Insulin Aspart [NovoLOG Insulin] Med 01/02/19 15:50 Discontinued 20 unit .ROUTE .STK-MED ONE Insulin Aspart [NovoLOG Insulin] Med 01/02/19 15:34 Discontinued 20 unit SQ STAT ONE Insulin Regular, Human [NovoLIN R] Med 01/02/19 16:19 Discontinued 1 unit .ROUTE .STK-MED ONE Insulin Regular, Human [NovoLIN R] Med 01/02/19 17:34 Active See Dose Instructions SQ UD PRN Isosorbide Mononitrate 30 mg [Imdur 30 MG] Med 01/03/19 10:00 Active 30 mg PO DAILY Losartan Potassium 50 mg [Cozaar 50 MG] Med 01/03/19 10:00 Active 100 mg PO DAILY Multivitamins,Therapeutic Tab* [Theragran Multivitamin* Med 01/02/19 22:00 Active ] 0.5 tab PO BID NaCl 0.9% 1000 ml [Sodium Chloride 0.9% 1000 ML] 1,000 Med 01/02/19 15:50 Discontinued ml .ROUTE UD NaCl 0.9% 1000 ml [Sodium Chloride 0.9% 1000 ML] 1,000 Med 01/02/19 17:34 Active ml IV 150 mls/hr NaCl 0.9% 1000 ml [Sodium Chloride 0.9% 1000 ML] ,000 Med 01/02/19 15:45 Discontinued ml IV 50 mls/hr NaCl 0.9% 1000 ml [Sodium Chloride 0.9% 1000 ML] ,000 Med 01/02/19 15:47 Discontinued ml IV 999 mls/hr NaCl 0.9% 1000 ml [Sodium Chloride 0.9% 1000 ML] ,000 Med 01/03/19 07:29 Discontinued ml IV 999 mls/hr NaCl 0.9% 100Ml [Sodium Chloride 0.9% 100 ML IVPB] 100 Med 01/02/19 16:00 Discontinued ml Insulin Reg Human Rec [Novolin R Insulin (For Drips)* *] 100 units IV 10 units/hr NaCl 0.9% 100Ml [Sodium Chloride 0.9% 100 ML IVPB] 100 Med 01/02/19 16:19 Discontinued ml IV UD [place]-3 Fatty Acids/Fish Oil [Fish Oil 1,000 mg Med 01/03/19 10:00 Active Capsule] 1,000 mg PO BID [place]-3 Fatty Acids/Fish Oil [Fish Oil 1,000 mg Med 01/03/19 10:00 Discontinued Capsule] 1,000 mg PO DAILY PANTOPRAZOLE 40 mg Tablet [Protonix 40MG Tablet] Med 01/03/19 10:00 Active 40 mg PO DAILY Polyvinyl Alcohol Tears [Artificial Tears 15 ML] Med 01/03/19 08:45 Active 0 ml OP UD Potassium Chloride 10 Meq Tab* [Klor Con 10 MEQ] Med 01/02/19 22:00 Active 20 meq PO HS Potassium Chloride 10 Meq Tab* [Klor Con 10 MEQ] Med 01/03/19 10:00 Active 40 meq PO DAILY Ranolazine 500 MG [Ranexa 500 MG] Med 01/02/19 22:00 Active 1,000 mg PO BID Sertraline HCl 50 mg [Zoloft 50 mg Tablet] Med 01/03/19 10:00 Active 50 mg PO DAILY Torsemide 20 mg [Demadex 20 mg] Med 01/02/19 22:00 Discontinued 20 mg PO BID Torsemide 20 mg [Demadex 20 mg] Med 01/03/19 10:00 Active 20 mg PO BID DIURETIC OT Screen per Nursing Assess OT 01/02/19 18:41 Active PT Screen per Nursing Assess ONCE PT 01/02/19 18:41 Active BiPap/CPAP ROUTINE RT 01/02/19 21:00 Active Oxygen NASAL CANNULA 2 lpm RT 01/02/19 17:47 Active Pulse Oximetry .continuos RT 01/02/19 17:47 Active RT Screen per Nursing Assess ONCE RT 01/02/19 18:41 Completed Respiratory Therapy Assessment DAILY RT 01/02/19 17:47 Active Patient Care Notes (Last 24 hours) 01/02/19 22:00 (created 01/02/19 23:37) Nursing Note by Sarina Dacosta Lab able to get lactic and troponin. Lab 1 attempt and RT x 2. Spoke with RT and lab and will do last troponin and lactic with am lab draw. Initialized on 01/02/19 23:37 - END OF NOTE 01/02/19 20:11 Respiratory Note by XinJewel ATTEMPTED TO DRAW BLOOD FOR LAB FOR REPEAT LACTIC AND TROPONIN AND WAS UNSUCCESSFUL. AFTER TWO STICKS FROM ME AND 3 FROM LAB SHE REQUESTED WE GIVE HER A BREAK. I SPOKE TO LAB AND NURSING AND WE AGREED TO ATTEMPT ANOTHER BLOOD DRAW FOR THE NEXT TROPONIN TIME OF 2145. PT WAS HAPPY WITH THAT. Initialized on 01/02/19 20:11 - END OF NOTE 01/02/19 19:10 (created 01/02/19 23:33) Nursing Note by Sarina Dacosta Unable to [id number] troponin and lactic d/t. Pt was stuck several times by lab and RT. Pt denies any more attempts at this time. Will try again with 2145 tropoinin. Initialized on 01/02/19 23:33 - END OF NOTE Code(s): R73.9 - HYPERGLYCEMIA, UNSPECIFIED (3) Diabetes mellitus Current Visit: Yes Status: Chronic Qualifiers: Diabetes mellitus type: type 2 Diabetes mellitus termite control representative insulin use: with termite control representative use Diabetes mellitus complication status: with hyperglycemia Qualified Code(s): E11.65 - Type 2 diabetes mellitus with hyperglycemia; Z79.4 - termite control representative (current) use of insulin Code(s): E11.9 - TYPE 2 DIABETES MELLITUS WITHOUT COMPLICATIONS (4) Chest pain Current Visit: No Status: Acute Code(s): R07.9 - CHEST PAIN, UNSPECIFIED
[2019-01-03] MEDS ORDERED: NON-FORMULARY ITEM (Aspirin [Aspirin] 81 MG) PO SCH (10:00)
[2019-01-03] MEDS ORDERED: GLYCERIN OP SCH (10:00)
[2019-01-03] MEDS ORDERED: NON-FORMULARY ITEM (Famotidine [Pepcid] 40 MG) PO SCH (10:00)
[2019-01-03] MEDS ORDERED: FISH OIL 1,000 MG CAPSULE PO SCH (10:00)
[2019-01-03] MEDS ORDERED: POLYSORBATE OP SCH (10:00)
[2019-01-03] MEDS ORDERED: NON-FORMULARY ITEM (Losartan Potassium [Cozaar] 100 MG) PO SCH (10:00)
[2019-01-03] MEDS: Ocuvite Tablet PO SCH (10:18)
[2019-01-03] MEDS: Pepcid 20 MG PO SCH (10:18)
[2019-01-03] MEDS: PRADAXA 75 MG PO SCH ×2 (10:18→21:10)
[2019-01-03] MEDS: Cordarone 200 MG PO SCH (10:19)
[2019-01-03] MEDS: Apresoline 25 MG TABLET PO SCH ×3 (10:19→21:11)
[2019-01-03] MEDS: Cozaar 50 MG PO SCH (10:19)
[2019-01-03] MEDS: ECOTRIN 81 MG PO SCH (10:20)
[2019-01-03] MEDS: Imdur 30 MG PO SCH (10:20)
[2019-01-03] MEDS: COREG 12.5 MG PO SCH (10:20)
[2019-01-03] MEDS: FISH OIL 1,000 MG CAPSULE PO SCH ×2 (10:20→21:10)
[2019-01-03] MEDS: Klor Con 10 MEQ PO SCH ×2 (10:20→21:12)
[2019-01-03] MEDS: Protonix 40MG Tablet PO SCH (10:20)
[2019-01-03] MEDS: ZYLOPRIM 100 MG PO SCH ×2 (10:21→21:12)
[2019-01-03] MEDS: ZOLOFT 50 MG TABLET PO SCH (10:21)
[2019-01-03] MEDS: Ranexa 500 MG PO SCH ×2 (10:21→21:12)
[2019-01-03] MEDS: THERAGRAN MULTIVITAMIN PO SCH ×2 (10:21→21:11)
[2019-01-03] MEDS: DEMADEX 20 MG PO SCH ×2 (10:21→17:02)
[2019-01-03] MEDS: ROCEPHIN 1 Gm-D5w 50 ml Bag** 1 G/50 ML IVPB IV SCH (10:32)
[2019-01-03] MEDS ORDERED: CARBOXYMETHYLCELLULOSE SODIUM OP SCH (22:00)
[2019-01-04] MEDS: NovoLIN R SQ PRN ×4 (00:05→21:13)
[2019-01-04] MEDS: Sodium Chloride 0.9% 1000 ML 1,000 ML IV SCH ×2 (04:31→17:59)
--- NOTE | 2019-01-04 08:46 | PCM.NOTE ---
Date and Time: 01/04/19 0845 Subjective Assessment: patient is doing much better today, but she feels weak in her legs and unsteady and weak in her hands. no chest pain this am Objective Exam General Appearance: no apparent distress, obese Neurologic Exam: alert, oriented x 3 Respiratory Exam: normal breath sounds, lungs clear, No respiratory distress Cardiovascular Exam: regular rate/rhythm, normal heart sounds Gastrointestinal/Abdomen Exam: soft, No tenderness, No mass Extremity Exam: normal inspection, normal range of motion OBJECTIVE DATA Vital Signs: Vital Signs - 24 hr Temp Pulse Resp BP Pulse Ox 01/04/19 07:17 97.6 F 56 L 18 139/50 95 01/04/19 04:05 98.5 F 56 L 20 135/55 98 01/03/19 23:00 98 F 62 18 109/47 96 01/03/19 19:55 59 L 24 97 01/03/19 19:28 97.7 F 62 20 122/46 100 01/03/19 16:38 97.8 F 62 17 106/46 92 L 01/03/19 14:50 61 111/56 01/03/19 12:00 98.4 F 63 17 96/46 Oxygen-Last 24 hours O2 Percentage 2 Liters = 28% O2 Percentage 2 Liters = 28% O2 Percentage 2 Liters = 28% O2 Percentage 2 Liters = 28% O2 Percentage 2 Liters = 28% Pain Assessment - Last Documented Pain Intensity 0 Pain Scale Used 0-10 Pain Scale Intake and Output: Intake & Output 01/01/19 01/02/19 01/03/19 01/04/19 11:59 11:59 11:59 11:59 Intake Total 200 6374 Output Total 1000 6100 Balance -800 274 Weight 103.1 kg Lab Results: Accuchecks Date 01/04/19 Time 07:58 Accucheck Value: 87 Accucheck Value: 87 Accucheck Value: 265 Accucheck Value: 316 Accucheck Value: 288 Accucheck Value: 285 Multi-Disciplinary Progress Notes: Multi-Disciplinary Progress Notes 01/04/19 08:28 Case Management Note by Mavis Akbar Talked to pt about chronic care coordination. Information given to pt. Initialized on 01/04/19 08:28 - END OF NOTE Assessment/Plan (1) Hyperglycemia due to type 2 diabetes mellitus Current Visit: Yes Status: Acute Qualifiers: Diabetes mellitus nursing home insulin use: with intermediate card tender use Qualified Code( s): E11.65 - Type 2 diabetes mellitus with hyperglycemia; Z79.4 - exterminator helper termite ( current) use of insulin Assessment & Plan: received 52 units of SSI coverage yesterday, will add 20 units lantus today Code(s): E11.65 - TYPE 2 DIABETES MELLITUS WITH HYPERGLYCEMIA (2) Weakness Current Visit: Yes Status: Acute Assessment & Plan: PT consult Code(s): R53.1 - WEAKNESS (3) Essential hypertension Current Visit: No Status: Chronic Code(s): I10 - ESSENTIAL (PRIMARY) HYPERTENSION (4) Paroxysmal atrial fibrillation Current Visit: No Status: Chronic Code(s): I48.0 - PAROXYSMAL ATRIAL FIBRILLATION
[2019-01-04] MEDS: Cozaar 50 MG PO SCH (10:09)
[2019-01-04] MEDS: Pepcid 20 MG PO SCH (10:09)
[2019-01-04] MEDS: THERAGRAN MULTIVITAMIN PO SCH ×2 (10:09→21:13)
[2019-01-04] MEDS: PRADAXA 75 MG PO SCH ×2 (10:09→21:12)
[2019-01-04] MEDS: ECOTRIN 81 MG PO SCH (10:09)
[2019-01-04] MEDS: DEMADEX 20 MG PO SCH ×2 (10:09→16:54)
[2019-01-04] MEDS: ZOLOFT 50 MG TABLET PO SCH (10:10)
[2019-01-04] MEDS: Ranexa 500 MG PO SCH ×2 (10:10→21:13)
[2019-01-04] MEDS: Protonix 40MG Tablet PO SCH (10:10)
[2019-01-04] MEDS: Klor Con 10 MEQ PO SCH ×2 (10:10→21:13)
[2019-01-04] MEDS: Ocuvite Tablet PO SCH (10:10)
[2019-01-04] MEDS: Imdur 30 MG PO SCH (10:11)
[2019-01-04] MEDS: Cordarone 200 MG PO SCH (10:11)
[2019-01-04] MEDS: ZYLOPRIM 100 MG PO SCH ×2 (10:11→21:13)
[2019-01-04] MEDS: Apresoline 25 MG TABLET PO SCH ×3 (10:11→21:12)
[2019-01-04] MEDS: FISH OIL 1,000 MG CAPSULE PO SCH ×2 (10:11→21:12)
[2019-01-04] MEDS: COREG 12.5 MG PO SCH (10:11)
[2019-01-04] MEDS: Lantus Insulin SQ SCH (10:11)
[2019-01-04] MEDS: ROCEPHIN 1 Gm-D5w 50 ml Bag** 1 G/50 ML IVPB IV SCH (11:31)
[2019-01-05] MEDS: NovoLIN R SQ PRN ×4 (00:04→20:13)
[2019-01-05] MEDS: Sodium Chloride 0.9% 1000 ML 1,000 ML IV SCH ×4 (00:41→07:21)
[2019-01-05 04:52] LABS: BASOPHIL % 0.1 % (0.0-0.4); Basophil (Absolute #) 0.01 (0-0.4); Eosinophil % 0.8 % (0.00-5.0); Eosinophil (Absolute #) 0.07 (0-0.5); Granulocyte Absolute (ANC) 4.77 (1.4-6.9); Granulocytes % 54.7 % (36.0-66.0); Hemoglobin 13.4 gm/dl (12.0-16.0); Lymphocyte (Absolute #) 2.91 (1.0-4.6); Lymphocytes % 33.4 % (24.0-44.0); Mean Cell Volume 96.6 fl (78-100); Mean Corpuscular Hemoglobin 32.4 pg (26-32); Mean Corpuscular Hgb Concent. 33.5 g/dl (32-36); Monocyte (Absolute #) 0.96 (0.0-1.3); Platelet Count 175 K/mm3 (150-450); Red Blood Count 4.14 M/mm3 (4.1-5.4); Red Cell Distribution Width 14.1 % (11.5-14.0); White Blood Count 8.7 K/mm3 (4.0-10.5)
[2019-01-05 05:25] LABS: ANION GAP 11.9 MEQ/L (5-15); BLOOD UREA NITROGEN 22 mg/dL (7-17); CHLORIDE 104 mmol/L (98-107); Calcium 8.7 mg/dL (8.4-10.2); Carbon Dioxide 29 mmol/L (22-30); Creatinine 1 0.99 mg/dL (0.52-1.04); Glucose 60 mg/dL (74-106); SODIUM 141 mmol/L (137-145)
[2019-01-05 05:43] LABS: TROPONIN < 0.012 ng/mL (0.000-0.034)
[2019-01-05] MEDS: ROCEPHIN 1 Gm-D5w 50 ml Bag** 1 G/50 ML IVPB IV SCH (09:10)
[2019-01-05] MEDS: Imdur 30 MG PO SCH (09:11)
[2019-01-05] MEDS: Apresoline 25 MG TABLET PO SCH ×3 (09:11→22:44)
[2019-01-05] MEDS: Cordarone 200 MG PO SCH (09:11)
[2019-01-05] MEDS: Pepcid 20 MG PO SCH (09:11)
[2019-01-05] MEDS: Ranexa 500 MG PO SCH ×2 (09:11→22:44)
[2019-01-05] MEDS: THERAGRAN MULTIVITAMIN PO SCH ×2 (09:11→22:43)
[2019-01-05] MEDS: Cozaar 50 MG PO SCH (09:13)
[2019-01-05] MEDS: Protonix 40MG Tablet PO SCH (09:13)
[2019-01-05] MEDS: ZOLOFT 50 MG TABLET PO SCH (09:13)
[2019-01-05] MEDS: DEMADEX 20 MG PO SCH ×2 (09:13→16:33)
[2019-01-05] MEDS: COREG 12.5 MG PO SCH (09:13)
[2019-01-05] MEDS: Ocuvite Tablet PO SCH (09:13)
[2019-01-05] MEDS: ZYLOPRIM 100 MG PO SCH ×2 (09:13→22:44)
[2019-01-05] MEDS: Klor Con 10 MEQ PO SCH ×2 (09:14→22:44)
[2019-01-05] MEDS: PRADAXA 75 MG PO SCH ×2 (09:14→22:43)
[2019-01-05] MEDS: ECOTRIN 81 MG PO SCH (09:14)
[2019-01-05] MEDS: FISH OIL 1,000 MG CAPSULE PO SCH ×2 (09:14→22:44)
[2019-01-05] MEDS: Lantus Insulin SQ SCH (12:15)
--- NOTE | 2019-01-05 13:52 | PCM.NOTE ---
Date and Time: 01/05/19 1350 Subjective Assessment: patient is still very weak, has difficulty with ambulation. blood sugars have been under better control. no chest pain this morning Objective Exam General Appearance: no apparent distress, obese Neurologic Exam: alert, oriented x 3 Skin Exam: normal color, warm, dry Respiratory Exam: normal breath sounds, lungs clear, No respiratory distress Cardiovascular Exam: regular rate/rhythm, normal heart sounds Gastrointestinal/Abdomen Exam: soft Extremity Exam: normal inspection, normal range of motion OBJECTIVE DATA Vital Signs: Vital Signs - 24 hr Temp Pulse Resp BP Pulse Ox 01/05/19 12:34 65 18 93 L 01/05/19 12:33 93 L 01/05/19 11:05 68 18 117/40 95 01/05/19 07:20 98.5 F 65 18 144/58 93 L 01/05/19 04:00 98.1 F 58 L 20 131/60 94 L 01/04/19 23:49 98.9 F 64 20 148/66 95 01/04/19 19:56 94 L 01/04/19 19:11 97.8 F 65 28 H 134/53 95 01/04/19 16:00 98.0 F 66 20 119/48 97 Oxygen-Last 24 hours O2 Percentage 2 Liters = 28% Pain Assessment - Last Documented Pain Intensity 0 Pain Scale Used 0-10 Pain Scale Intake and Output: Intake & Output 01/03/19 01/04/19 01/05/19 01/06/19 11:59 11:59 11:59 11:59 Intake Total 200 6374 4874 Output Total 1000 6100 4800 900 Balance -800 274 74 -900 Weight 103.1 kg Lab Results: Accuchecks Date 01/05/19 Date 01/05/19 Date 01/05/19 Date 01/05/19 Date 01/04/19 Date 01/04/19 Time 12:20 Time 07:25 Time 04:00 Time 00:00 Time 20:00 Time 16:30 Accucheck Value: 380 Accucheck Value: 187 Accucheck Value: 76 Accucheck Value: 277 Accucheck Value: 323 Accucheck Value: 302 Lab Results-Last 24 Hours 01/05/19 01/05/19 Range/Units 04:30 04:30 WBC 8.7 (4.0-10.5) K/mm3 RBC 4.14 (4.1-5.4) M/mm3 Hgb 13.4 (12.0-16.0) gm/dl Hct 40.0 (35-47) % MCV 96.6 (78-100) fl MCH 32.4 H (26-32) pg MCHC 33.5 (32-36) g/dl RDW 14.1 H (11.5-14.0) % Plt Count 175 (150-450) K/mm3 MPV 12.0 H (6-9.5) fl Gran % 54.7 (36.0-66.0) % Eos # (Auto) 0.07 (0-0.5) Absolute Lymphs (auto) 2.91 (1.0-4.6) Absolute Monos (auto) 0.96 (0.0-1.3) Lymphocytes % 33.4 (24.0-44.0) % Monocytes % 11.0 (0.0-12.0) % Eosinophils % 0.8 (0.00-5.0) % Basophils % 0.1 (0.0-0.4) % Absolute Granulocytes 4.77 (1.4-6.9) Basophils # 0.01 (0-0.4) Sodium 141 (137-145) mmol/L Potassium 4.0 (3.5-5.1) mmol/L Chloride 104 (98-107) mmol/L Carbon Dioxide 29 (22-30) mmol/L Anion Gap 11.9 (5-15) MEQ/L BUN 22 H (7-17) mg/dL Creatinine 0.99 (0.52-1.04) mg/dL Estimated GFR 59.1 ML/MIN Glucose 60 L (74-106) mg/dL Calcium 8.7 (8.4-10.2) mg/dL Magnesium 2.0 (1.6-2.3) mg/dL Troponin I < 0.012 (0.000-0.034) ng/mL Multi-Disciplinary Progress Notes: Multi-Disciplinary Progress Notes 01/05/19 11:37 Physical Therapy Note by Asia Weaver PATIENT SEEN AT BEDSIDE FOR THERAPY. PERFORMED SIT TO STAND TRANSFER WITH WALKER AND VERBAL CUES FOR GOOD POSTURE AND PROPER HAND PLACEMENT. PATIENT AMBULATED WITH WALKER WITH SBA OF 1 WITHOUT SIGNIFICANT DEVIATIONS OR LOSS OF BALANCE. PATIENT WENT JUST OUTSIDE ROOM DOOR THEN REQUESTED TO GO BACK TO ROOM DUE TO LEGS HURTING AND TIRED. UPON RETURNING TO ROOM PATIENT PERFORMED PIVOT TRANSFER TO CHAIR SAFELY AND INDEP WITH ASSISTIVE DEVICE. IN SITTING PERFORMED THER EX FOR LE STRENGTHENING/ROM INCLUDING ANKLE PUMPS, HEELCORD STRETCHES, KNEE FLEXION/EXT, HIP FLEXION (WITH ASSIST) AND ISOMETRIC HIP ABD AND ADDUCTION. 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 SPOKE WITH SAUD. REFERRAL FAXED PER HER REQUEST. Initialized on 01/04/19 15:32 - END OF NOTE 01/04/19 15:00 (created 01/04/19 15:30) Case Management Note by Jackie Sequeira VISITED WITH PT AND REVIEWED DISCHARGE PLAN. REPORTS THAT SHE FEELS WEAK, THINKS THAT [facility] WOULD NOT BE ENOUGH SUPPORT. REQUESTS REFERRAL TO [facility] [place]. REPORTS THAT SHE HAS BEEN THERE IN THE PAST. DENIES ADD NEEDS. PLANS TO RETURN HOME AFTER SHORT TERM REHAB STAY. Initialized on 01/04/19 15:30 - END OF NOTE 01/04/19 13:59 Nutrition Note by Gema Ward Note nursing screening triggered for swallow diff. Pt stated she has to have her esophagus stretched and knows what foods to avoid. 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: with senior care use Qualified Code( s): E11.65 - Type 2 diabetes mellitus with hyperglycemia; Z79.4 - nursing home ( current) use of insulin Assessment & Plan: better controlled at this time Code(s): E11.65 - TYPE 2 DIABETES MELLITUS WITH HYPERGLYCEMIA (2) Weakness Current Visit: Yes Status: Acute Assessment & Plan: plan for rehab stay to improve functional status Code(s): R53.1 - WEAKNESS (3) Essential hypertension Current Visit: No Status: Chronic Code(s): I10 - ESSENTIAL (PRIMARY) HYPERTENSION (4) Paroxysmal atrial fibrillation Current Visit: No Status: Chronic Code(s): I48.0 - PAROXYSMAL ATRIAL FIBRILLATION
[2019-01-06] MEDS: NovoLIN R SQ PRN ×2 (00:20→12:25)
[2019-01-06] MEDS ORDERED: Sodium Chloride 0.9% 10 ML FLUSH Syringe IV PRN (03:38)
[2019-01-06 04:29] LABS: Basophil (Absolute #) 0 (0-0.4); Eosinophil % 1.3 % (0.00-5.0); Eosinophil (Absolute #) 0.11 (0-0.5); Granulocyte Absolute (ANC) 4.48 (1.4-6.9); Granulocytes % 52.2 % (36.0-66.0); Hematocrit 41.6 % (35-47); Hemoglobin 13.9 gm/dl (12.0-16.0); Lymphocyte (Absolute #) 3.22 (1.0-4.6); Lymphocytes % 37.6 % (24.0-44.0); Mean Cell Volume 95.9 fl (78-100); Mean Corpuscular Hgb Concent. 33.4 g/dl (32-36); Mean Platelet Volume 11.8 fl (6-9.5); Monocyte (Absolute #) 0.76 (0.0-1.3); Monocytes % 8.9 % (0.0-12.0); Platelet Count 173 K/mm3 (150-450); Red Blood Count 4.34 M/mm3 (4.1-5.4); Red Cell Distribution Width 14.2 % (11.5-14.0); White Blood Count 8.6 K/mm3 (4.0-10.5)
[2019-01-06 04:43] LABS: ANION GAP 12.1 MEQ/L (5-15); BLOOD UREA NITROGEN 22 mg/dL (7-17); CHLORIDE 102 mmol/L (98-107); Calcium 9.1 mg/dL (8.4-10.2); Carbon Dioxide 30 mmol/L (22-30); Creatinine 1 0.91 mg/dL (0.52-1.04); Glucose 74 mg/dL (74-106); Potassium 3.7 mmol/L (3.5-5.1); SODIUM 140 mmol/L (137-145)
[2019-01-06] MEDS: Apresoline 25 MG TABLET PO SCH (09:45)
[2019-01-06] MEDS: Klor Con 10 MEQ PO SCH (09:45)
[2019-01-06] MEDS: COREG 12.5 MG PO SCH (09:45)
[2019-01-06] MEDS: PRADAXA 75 MG PO SCH (09:45)
[2019-01-06] MEDS: Ranexa 500 MG PO SCH (09:45)
[2019-01-06] MEDS: THERAGRAN MULTIVITAMIN PO SCH (09:46)
[2019-01-06] MEDS: ZOLOFT 50 MG TABLET PO SCH (09:46)
[2019-01-06] MEDS: DEMADEX 20 MG PO SCH (09:46)
[2019-01-06] MEDS: Ocuvite Tablet PO SCH (09:46)
[2019-01-06] MEDS: Pepcid 20 MG PO SCH (09:46)
[2019-01-06] MEDS: ECOTRIN 81 MG PO SCH (09:46)
[2019-01-06] MEDS: Imdur 30 MG PO SCH (09:46)
[2019-01-06] MEDS: ZYLOPRIM 100 MG PO SCH (09:46)
[2019-01-06] MEDS: Protonix 40MG Tablet PO SCH (09:46)
[2019-01-06] MEDS: Cordarone 200 MG PO SCH (09:46)
[2019-01-06] MEDS: FISH OIL 1,000 MG CAPSULE PO SCH (09:46)
[2019-01-06] MEDS: Cozaar 50 MG PO SCH (09:46)
[2019-01-06] MEDS: Lantus Insulin SQ SCH (09:51)
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
[2019-01-06 12:46] VITALS: BP 122/64; PULSE 61; O2SAT 100
== END 2019-01-06 13:00 | DRG 639 ==
LOC: ED 15:27 → ICU 17:25 → OBSVTOIN 01-03 09:36
PROVIDERS: ADMIT General Practice; ATTEND Family Medicine
DX: E11.65 Type 2 diabetes mellitus with hyperglycemia (principal); R07.9 Chest pain, unspecified; R53.1 Weakness; J44.9 Chronic obstructive pulmonary disease, unspecified; I10 Essential (primary) hypertension; G47.30 Sleep apnea, unspecified; I48.0 Paroxysmal atrial fibrillation; Z79.899 Other long term (current) drug therapy; Z79.4 Long term (current) use of insulin; I25.2 Old myocardial infarction
CPT/HCPCS: 36415; 80048; 80053; 81001; 82375; 82803; 82962; 83605; 83735; 83880; 84484; 85025; 87086; 93005; 93041; 93268; 94660; 94760; 94762; 96360; 96365; 96372; 97110; 97161; 99291; G0378; 36000; 36600; 99285; J0696; J1815; A9270-GY

== ENCOUNTER 2019-03-23 17:08 | Emergency (ER) | payer MEDICARE, BC ==
--- NOTE | 2019-03-23 17:15 | ERPHSYRPT ---
<ESTEFANI SIEGEL - Last Filed: 03/23/19 20:15> - History of Present Illness Source: patient Exam Limitations: no limitations Timing/Duration: today Associated Symptoms: other (Perioral numbness and numbness/paresthesia in hands) , No nausea, No vomiting Hx Tetanus, Diphtheria Vaccination/Date Given: Yes Hx Influenza Vaccination/Date Given: No Hx Pneumococcal Vaccination/Date Given: Yes <LAINE PERALTA - Last Filed: 03/24/19 15:18> - History of Present Illness Time Seen by Provider: 03/23/19 17:15 Physician History: The patient is a 69-year-old female with a past medical history significant for CHF, atrial fibrillation, depression, CAD, CKG, diabetes mellituspresents with a chief complaint of hypotension and dizziness. She reportedly was at home and had her blood pressure checked by a physical therapist he was provided home visits and was told her blood pressure was in the 90s systolic over 50s diastolic. At that time the patient started to feel weak and dizzy and decided to come to the emergency department for further evaluation. Of note, the patient was able to walk through the parking lot to the front lobby without difficulty. On my evaluation, she seemed to be very anxious and is tearful. At one point she told me she couldn't see, but then miraculously recovered her vision. She was not hypotensive on my exam. She reportedly takes Humalog and Lantus. She took 14 units of Humalog at 0900 and ate breakfast and then took 12 units at 3:00 pm but did not eat after taking this dose of insulin. She takes 26 units of Lantus qhs. She seemed very anxious and was tearful at one point while obtaining the HPI. She reports her son of a heart attack reportedly 14 years ago and the anniversary date was yesterday. (LAINE PERALTA) Allergies/Adverse Reactions: adhesive Allergy (Mild, Verified 03/23/19 17:34) Blisters aspirin Allergy (Verified 03/23/19 17:34) Difficulty Breathing PT STATES THAT SHE CAN TAKE ASPIRIN 81 MG BUT NOTHING HIGHER IN DOSE. morphine Allergy (Verified 03/23/19 17:34) anaphylaxis pt went into respiratory failure and acute renal failure the last time she had morphine. "I was in a coma for a week" Penicillins Allergy (Verified 03/23/19 17:34) Rash povidone-iodine [From Betadine] Allergy (Verified 03/23/19 17:34) BLISTERES soap [From Betadine] Allergy (Verified 03/23/19 17:34) Blisters Home Medications: Allopurinol 100 mg [Zyloprim 100 mg] 100 mg PO BID 11/18/18 [History] Amiodarone HCl 200 mg [Cordarone 200 MG] 200 mg PO DAILY 11/18/18 [History ] Aspirin 81 mg PO DAILY 11/18/18 [History] Carvedilol 12.5 mg [Coreg 12.5 mg] 12.5 mg PO DAILY 11/18/18 [History] Dabigatran Etexilate Mesylate [Pradaxa] 150 mg PO BID 11/18/18 [History] HydrALAzine HCL 25 MG TAB [Apresoline 25 MG TABLET] 25 mg PO TID 11/18/18 [History] Isosorbide Mononitrate 30 mg [Imdur 30 MG] 30 mg PO DAILY 11/18/18 [History ] Losartan Potassium [Cozaar] 100 mg PO DAILY 11/18/18 [History] Multivitamin [Daily Multivitamin] 0.5 each PO BID 11/18/18 [History] Wheelwright-3S/Dha/Epa/Fish Oil [Wheelwright Power 1,050 mg Softgel] 1,050 mg PO BID [History] PANTOPRAZOLE 40 mg Tablet [Protonix 40MG Tablet] 40 mg PO DAILY 11/18/18 [ History] Ranolazine [Ranexa] 1,000 mg PO BID 11/18/18 [History] Sertraline HCl 50 mg [Zoloft 50 mg Tablet] 50 mg PO DAILY 11/18/18 [History] Torsemide 20 mg [Demadex 20 mg] 20 mg PO BID 11/18/18 [History] Albuterol/Ipratropium 3ml Neb* [DUONEB 0.5-3 MG/3 ml Neb] 3 ml IH QID PRN PRN 01/02/19 [History] Beta-Carotene(A) W-C & E/Min [Ocuvite Tablet] 1 tab PO DAILY 01/02/19 [ History] Carboxymethylcellulose Sodium [Refresh Liquigel] 1 drop OP HS 01/02/19 [History] Polysorbate 80/Glycerin [Refresh Dry Eye Therapy Drops] 1 drop OP DAILY [History] Potassium Chloride 10 Meq Tab* [Klor Con 10 MEQ] 40 meq PO BID 01/02/19 [ History] Insulin Glargine [Lantus Insulin] 28 unit SQ QHS 03/23/19 [History] Insulin Lispro [Humalog] 14 unit SQ UD 03/23/19 [History] Pregabalin 50 mg [Lyrica 50MG] 50 mg PO BID 03/23/19 [History] Torsemide 60 mg PO QAM 03/23/19 [History] - Review of Systems Constitutional: Weakness, No Fever, No Chills Eyes: Vision Changes Ears, Nose, & Throat: No Symptoms, No Painful Swallowing Respiratory: No Cough, No Dyspnea, No Dyspnea on Exertion (JOYA) Cardiac: Other (The patient had a brief <10 seconds episode of CP that resolved spontaneously during the interview) Abdominal/Gastrointestinal: No Abdominal Pain, No Nausea, No Vomiting Genitourinary Symptoms: No Dysuria, No Frequency Skin: No Symptoms Neurological: Other (Perioral numbness and paresethesia in hands), No Focal Weakness, No Headache, No Paralysis All Other Systems: Reviewed and Negative <LAINE PERALTA - Last Filed: 03/24/19 15:18> - Past Medical History Pertinent Past Medical History: Yes Neurological History: No Pertinent History ENT History: No Pertinent History Cardiac History: Arrhythmia, Congestive Heart Failure, Coronary Artery Disease, Hypertension, Myocardial Infarction ([place]) Respiratory History: CHF, COPD, Pneumonia, Sleep Apnea Endocrine Medical History: Diabetes Type II Musculoskeletal History: Arthritis, Fractures GI Medical History: Hepatitis History: Other Psycho-Social History: Depression Female Reproductive Disorders: No Pertinent History Other Medical History: 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 Heart murmur with afib hx. 2-3 dialysis treatments when on vent due to morphine allergy. Pt has Humalog insulin pump. hx hepatitis A as a child - Past Surgical History Past Surgical History: Yes Neuro Surgical History: No Pertinent History Cardiac: No Pertinent History Respiratory: No Pertinent History Gastrointestinal: Hernia Repair Genitourinary: No Pertinent History Musculoskeletal: No Pertinent History, Orthopedic Surgery Female Surgical History: Hysterectomy Other Surgical History: right hand and wrist x 16 - sinus x 3 -. cyst removed left side. NODULES REMOVED FROM BILATERAL ARMS - Social History Smoking Status: Former smoker How long have you smoked: 2years Exposure to second hand smoke: No Alcohol Use: None Drug Use: none Patient Lives Alone: No Significant Family History: diabetes, hypertension <LAINE PERALTA - Last Filed: 03/24/19 15:18> - Physical Exam General Appearance: alert, obese Eye Exam: PERRL/EOMI, EOM palsy/anisocoria Ears, Nose, Throat Exam: normal ENT inspection, pharynx normal, moist mucous membranes, No pharyngeal erythema, No tonsillar exudate Neck Exam: normal inspection, supple Respiratory Exam: normal breath sounds, lungs clear, airway intact, No chest tenderness, No respiratory distress Cardiovascular Exam: normal heart sounds, normal peripheral pulses, bradycardia , capillary refill <2 sec, edema, No murmur, No friction rub, No gallop Gastrointestinal/Abdomen Exam: soft, No tenderness, No distention, No guarding Pelvic Exam: not done Rectal Exam: deferred Back Exam: normal inspection Extremity Exam: pedal edema, No tenderness Neurologic Exam: alert, oriented x 3, other (Seems anxious and was tearful at times) Skin Exam: other (Bilaterl lower extremity lymphedema) SpO2 Interpretation: normal <LAINE PERALTA - Last Filed: 03/24/19 15:18> - Nursing Vital Signs Nursing Vital Signs: Initial Vital Signs Temperature 97.5 F 03/23/19 17:10 Pulse Rate 56 L 03/23/19 17:10 Respiratory Rate 26 H 03/23/19 17:10 Blood Pressure 154/63 03/23/19 17:10 O2 Sat by Pulse Oximetry 94 L 03/23/19 17:10 Pain Scale Pain Intensity 0 - Course Nursing assessment & vital signs reviewed: Yes EKG Interpreted by Me: Sinus Silver[place], Left [place] Deviation, Other (Artifact noted. Negative for STEMI) - Radiology Exams Chest X-ray Interpretation: Interpreted by me, Reviewed by me, Negative (Chronic appearing changes with bilateral scarring or fibrosis that appears similar to prior CXR on 05/25), No Pneumothorax <FABIANLAINE - Last Filed: 03/24/19 15:18> Ordered Tests: Active Orders 24 hr Category Date Time Status ACCUCHECK [Accucheck] STAT Care 03/23/19 17:40 Active EKG-ER Only STAT Care 03/23/19 17:36 Active IV Insertion STAT Care 03/23/19 17:36 Active ABDOMEN AND PELVIS W/0 CONTRAS [CT] Stat Exams 03/23/19 18:29 Completed CHEST 2 VIEWS (PA AND LAT) Stat Exams 03/23/19 17:37 Completed BMP Stat Lab 03/23/19 17:45 Completed CBC W DIFF Stat Lab 03/23/19 17:45 Completed CULTURE,URINE Stat Lab 03/23/19 17:47 Results TROPONIN Stat Lab 03/23/19 17:45 Completed TSH [TSH, 3RD Generation] Stat Lab 03/23/19 17:45 Completed UA W/RFX UR CULTURE Stat Lab 03/23/19 17:47 Completed Medication Summary Discontinued Medications Generic Name Dose Route Start Last Admin Trade Name Freq PRN Reason Stop Dose Admin Sodium Chloride 1,000 mls @ 999 mls/hr 03/23/19 18:46 03/23/19 18:51 Sodium Chloride 0.9% 1000 Ml IV 03/23/19 19:46 Not Given .Q1H1M STA Lab/Rad Data: Laboratory Result Diagrams 03/23/19 17:45 03/23/19 17:45 Laboratory Results 03/23/19 03/23/19 03/23/19 Range/Units 17:47 17:45 17:45 WBC (4.0-10.5) K/mm3 RBC (4.1-5.4) M/mm3 Hgb (12.0-16.0) gm/dl Hct (35-47) % MCV (78-100) fl MCH (26-32) pg MCHC (32-36) g/dl RDW (11.5-14.0) % Plt Count (150-450) K/mm3 MPV (6-9.5) fl Gran % (36.0-66.0) % Eos # (Auto) (0-0.5) Absolute Lymphs (auto) (1.0-4.6) Absolute Monos (auto) (0.0-1.3) Lymphocytes % (24.0-44.0) % Monocytes % (0.0-12.0) % Eosinophils % (0.00-5.0) % Basophils % (0.0-0.4) % Absolute Granulocytes (1.4-6.9) Basophils # (0-0.4) Sodium 144 (137-145) mmol/L Potassium 4.4 (3.5-5.1) mmol/L Chloride 104 (98-107) mmol/L Carbon Dioxide 32 H (22-30) mmol/L Anion Gap 11.7 (5-15) MEQ/L BUN 26 H (7-17) mg/dL Creatinine 1.48 H (0.52-1.04) mg/dL Estimated GFR 37.1 ML/MIN Glucose 45 L* (74-106) mg/dL Calcium 9.8 (8.4-10.2) mg/dL Troponin I < 0.012 (0.000-0.034) ng/mL TSH 3rd Generation 2.200 (0.47-4.68) mIU/L Urine Color STRAW (YELLOW) Urine Appearance CLEAR (CLEAR) Urine pH 7.0 (5-6) Ur Specific [place] 1.008 (1.005-1.025) Urine Protein NEGATIVE (Negative) Urine Ketones NEGATIVE (NEGATIVE) Urine Blood LARGE (0-5) Kervin/ul Urine Nitrite NEGATIVE (NEGATIVE) Urine Bilirubin NEGATIVE (NEGATIVE) Urine Urobilinogen NEGATIVE (0-1) mg/dL Ur Leukocyte Esterase NEGATIVE (NEGATIVE) Urine WBC (Auto) 3-5 (0-5) /HPF Urine RBC (Auto) 51-100 (0-2) /HPF U Hyaline Cast (Auto) 0-2 (0-2) /LPF U Epithel Cells (Auto) RARE (FEW) /HPF Urine Bacteria (Auto) NONE SEEN (NEGATIVE) /HPF Unidentified Crystals 25-50 (NEGATIVE) /HPF Urine Culture Reflexed ORDERED SEPARATELY (NO) Urine Glucose NEGATIVE (NEGATIVE) mg/dL 03/23/19 Range/Units 17:45 WBC 7.3 (4.0-10.5) K/mm3 RBC 4.04 L (4.1-5.4) M/mm3 Hgb 13.2 (12.0-16.0) gm/dl Hct 40.9 (35-47) % MCV 101.2 H (78-100) fl MCH 32.7 H (26-32) pg MCHC 32.3 (32-36) g/dl RDW 15.1 H (11.5-14.0) % Plt Count 206 (150-450) K/mm3 MPV 11.8 H (6-9.5) fl Gran % 51.1 (36.0-66.0) % Eos # (Auto) 0.05 (0-0.5) Absolute Lymphs (auto) 2.94 (1.0-4.6) Absolute Monos (auto) 0.58 (0.0-1.3) Lymphocytes % 40.2 (24.0-44.0) % Monocytes % 7.9 (0.0-12.0) % Eosinophils % 0.7 (0.00-5.0) % Basophils % 0.1 (0.0-0.4) % Absolute Granulocytes 3.73 (1.4-6.9) Basophils # 0.01 (0-0.4) Sodium (137-145) mmol/L Potassium (3.5-5.1) mmol/L Chloride (98-107) mmol/L Carbon Dioxide (22-30) mmol/L Anion Gap (5-15) MEQ/L BUN (7-17) mg/dL Creatinine (0.52-1.04) mg/dL Estimated GFR ML/MIN Glucose (74-106) mg/dL Calcium (8.4-10.2) mg/dL Troponin I (0.000-0.034) ng/mL TSH 3rd Generation (0.47-4.68) mIU/L Urine Color (YELLOW) Urine Appearance (CLEAR) Urine pH (5-6) Ur Specific [place] (1.005-1.025) Urine Protein (Negative) Urine Ketones (NEGATIVE) Urine Blood (0-5) Kervin/ul Urine Nitrite (NEGATIVE) Urine Bilirubin (NEGATIVE) Urine Urobilinogen (0-1) mg/dL Ur Leukocyte Esterase (NEGATIVE) Urine WBC (Auto) (0-5) /HPF Urine RBC (Auto) (0-2) /HPF U Hyaline Cast (Auto) (0-2) /LPF U Epithel Cells (Auto) (FEW) /HPF Urine Bacteria (Auto) (NEGATIVE) /HPF Unidentified Crystals (NEGATIVE) /HPF Urine Culture Reflexed (NO) Urine Glucose (NEGATIVE) mg/dL <ESTEFANI SIEGEL - Last Filed: 03/23/19 20:15> - Progress Progress: improved <FABIANRENELAINE - Last Filed: 03/24/19 15:18> - Progress Progress Note: 03/23/19 18:08 The patient was in radiology getting a CXR and became weak in the legs. The tech assisted the patient to the floor. There was no injury sustained, loss of consciousness, and she did not impact her head. She was assisted off the floor to her bed and brought back to her room. 03/23/19 18:57 I reviewed the patient's EMR, specifically her radiology reports in which it appears she had a myocardial perfusion scan performed on December 25, 2018 that showed no perfusion defects. She also had bilateral lower showed ultrasound dated December 01, 2018 showed no evidence of DVT. She had carotid studies performed on November 16, 2018 which showed no significant carotid stenosis or plaque formation. (LAINE PERALTA) - Departure Departure Disposition: Home <HOLLIEESTEFANI - Last Filed: 03/23/19 20:15> - Departure Critical Care Time: No <LAINE PERALTA - Last Filed: 03/24/19 15:18> - Departure Clinical Impression: Hypoglycemia, CKD (chronic kidney disease), Flank pain, Microscopic hematuria, Anxiety Condition: Stable Referrals: LUIS GALLOWAY MD [Primary Care Provider] - Instructions: Blood in the Urine (Hematuria) in Adults, Low Blood Sugar, Adult (DC), Flank Pain Additional Instructions: patient was instructed to hold her Lantus tonight restart her regular doses in the morning Plan of Treatment: Nontoxic in appearance. She had no hypotension during her stay in the emergency department.The current plan is to obtain and abdomen/pelvis CT that has to be without contrast given the radiologist policy in that contrast cannot be administered with a GFR less than 50 for evidence of an obstructing stone or a hematoma given the patient has right flank pain with microscopic hematuria on her UA. I currently have a low suspicion for a dissecting AAA at this time given that the patient overall seems to be comfortable and has had this pain for roughly 2-3 weeks. I currently have a low suspicion for any serious or chronic this time given the patient's the chest pain currently EKG appears to be relatively normal but the troponin is within normal limits. I do think a lot of her symptoms may be anxiety induced in good repair all numbness in addition to paresthesias in her hands and giving the events that took place about pain in my history of present illness and the recent anniversary of her son staff. Counseling services were offered however the patient declined stating that she did not feel she needed this. Her hyperglycemia is likely to her not eating after taking her most recent dose of Humalog. In addition to need to followup on the CT abdomen and pelvis report her blood sugar also need to be monitored in the emergency department. She is currently eating a meal from a tray that was ordered from the cafeteria. Patient care has been transitioned to Dr. Siegel.
[2019-03-23 17:49] LABS: Absolute Neutrophil Ct (ANC) 3.73 (1.4-6.9); BASOPHIL % 0.1 % (0.0-0.4); Basophil (Absolute #) 0.01 (0-0.4); Eosinophil % 0.7 % (0.00-5.0); Eosinophil (Absolute #) 0.05 (0-0.5); Hematocrit 40.9 % (35-47); Hemoglobin 13.2 gm/dl (12.0-16.0); Lymphocyte (Absolute #) 2.94 (1.0-4.6); Lymphocytes % 40.2 % (24.0-44.0); Mean Cell Volume 101.2 fl (78-100); Mean Corpuscular Hemoglobin 32.7 pg (26-32); Mean Corpuscular Hgb Concent. 32.3 g/dl (32-36); Mean Platelet Volume 11.8 fl (6-9.5); Monocyte (Absolute #) 0.58 (0.0-1.3); Monocytes % 7.9 % (0.0-12.0); Neutrophil % 51.1 % (36.0-66.0); Platelet Count 206 K/mm3 (150-450); Red Blood Count 4.04 M/mm3 (4.1-5.4); Red Cell Distribution Width 15.1 % (11.5-14.0); White Blood Count 7.3 K/mm3 (4.0-10.5)
[2019-03-23 18:00] LABS: Appearance CLEAR (CLEAR); Bilirubin NEGATIVE (NEGATIVE); Blood LARGE Ery/ul (0-5); Crystals Unidentified 25-50 /HPF (NEGATIVE); Epithelial Cells RARE /HPF (FEW); Glucose NEGATIVE (NEGATIVE); Hyaline Casts 0-2 /LPF (0-2); Ketones NEGATIVE (NEGATIVE); Leukocyte Esterase NEGATIVE (NEGATIVE); Nitrite NEGATIVE (NEGATIVE); Protein,Urine Dip NEGATIVE (Negative); RBC 51-100 /HPF (0-2); Specific Gravity 1.008 (1.005-1.025); Urobilinogen NEGATIVE mg/dL (0-1)
[2019-03-23 18:05] LABS: ANION GAP 11.7 MEQ/L (5-15); BLOOD UREA NITROGEN 26 mg/dL (7-17); CHLORIDE 104 mmol/L (98-107); Calcium 9.8 mg/dL (8.4-10.2); Carbon Dioxide 32 mmol/L (22-30); Creatinine 1 1.48 mg/dL (0.52-1.04); Potassium 4.4 mmol/L (3.5-5.1); SODIUM 144 mmol/L (137-145)
[2019-03-23 18:07] LABS: Glucose 45 mg/dL (74-106); TROPONIN < 0.012 ng/mL (0.000-0.034)
[2019-03-23 18:08] LABS: Bacteria NONE SEEN /HPF (NEGATIVE)
[2019-03-23] MEDS ORDERED: Sodium Chloride 0.9% 1000 ML 1,000 ML IV STA (18:46)
[2019-03-23 20:38] VITALS: BP 112/59; PULSE 63; O2SAT 94
--- NOTE | 2019-03-24 08:49 | XRAY ---
Indication: Chest pain. Comparison: November 30, 2018. PA/lateral chest demonstrates left mid lung subsegmental atelectasis/scarring less than before. Remaining heart and lungs unremarkable. Bony thorax intact again with mild degenerative changes. No new/acute findings.
--- NOTE | 2019-03-24 08:51 | XRAY ---
Indication: Microscopic hematuria. Possible hematoma following fall. Multiple contiguous axial images obtained through the abdomen and pelvis without contrast as ordered. Comparison: None Study limited due to patient body habitus. Lung bases demonstrates mild fibrosis/scarring bilaterally. No infiltrate or effusion. Heart is not enlarged. Stomach is distended with food/fluid. Noncontrasted stomach and bowel loops appear nonobstructed. Patient reports appendectomy and hysterectomy. There is mild diffuse scattered colonic fecal debris throughout. Also scattered colonic diverticulosis, greatest sigmoid colon. No free fluid/air. Remaining liver, gallbladder, pancreas, spleen, adrenal glands, kidneys, ureters, and bladder appear unremarkable for noncontrast exam. Mild scattered aortoiliac calcifications without AAA. Osseous structures demonstrates mild/moderate degenerative changes throughout the thoracolumbar spine. Impression: 1. Fecal stasis without obstruction. 2. Colonic diverticulosis without diverticulitis. 3. Remaining CT abdomen/pelvis without contrast exam is negative. CT DI 24.93
== END 2019-03-23 20:38 | disposition home or self-care (01) ==
LOC: ED 17:08
DX: E16.2 Hypoglycemia, unspecified (principal); N18.9 Chronic kidney disease, unspecified; R31.9 Hematuria, unspecified; F41.9 Anxiety disorder, unspecified; R20.0 Anesthesia of skin; I50.9 Heart failure, unspecified; I48.91 Unspecified atrial fibrillation; I25.10 Atherosclerotic heart disease of native coronary artery without angina pectoris; E11.9 Type 2 diabetes mellitus without complications; I95.9 Hypotension, unspecified; R42 Dizziness and giddiness; Z79.4 Long term (current) use of insulin; Z79.899 Other long term (current) drug therapy; I10 Essential (primary) hypertension; I25.2 Old myocardial infarction
CPT/HCPCS: 36000; 36415; 71046; 74176; 80048; 81001; 82962; 84443; 84484; 85025; 87086; 93005; 99284

== ENCOUNTER 2019-05-08 02:44 | Inpatient (IN) | payer MEDICARE, BC ==
[2019-05-08] MEDS ORDERED: Sodium Chloride 0.9% 1000 ML 1,000 ML IV STA (03:16)
[2019-05-08] MEDS ORDERED: Sodium Chloride 0.9% 1000 ML 1,000 ML ONE (03:18)
[2019-05-08 03:29] LABS: Absolute Neutrophil Ct (ANC) 5.05 (1.4-6.9); BASOPHIL % 0.1 % (0.0-0.4); Basophil (Absolute #) 0.01 (0-0.4); Eosinophil % 0.8 % (0.00-5.0); Eosinophil (Absolute #) 0.07 (0-0.5); Hematocrit 42.2 % (35-47); Hemoglobin 13.6 gm/dl (12.0-16.0); Lymphocyte (Absolute #) 2.72 (1.0-4.6); Lymphocytes % 31.4 % (24.0-44.0); Mean Cell Volume 97.7 fl (78-100); Mean Corpuscular Hemoglobin 31.5 pg (26-32); Mean Corpuscular Hgb Concent. 32.2 g/dl (32-36); Mean Platelet Volume 11.6 fl (7.5-11.0); Monocyte (Absolute #) 0.81 (0.0-1.3); Monocytes % 9.4 % (0.0-12.0); Neutrophil % 58.3 % (36.0-66.0); Platelet Count 215 K/mm3 (150-450); Red Blood Count 4.32 M/mm3 (4.1-5.4); Red Cell Distribution Width 15.9 % (11.5-14.0); White Blood Count 8.7 K/mm3 (4.0-10.5)
[2019-05-08 03:40] LABS: ANION GAP 14.2 MEQ/L (5-15); Calcium 9.5 mg/dL (8.4-10.2); Creatinine 1 1.03 mg/dL (0.52-1.04); Potassium 5.2 mmol/L (3.5-5.1)
[2019-05-08 04:04] LABS: Appearance SLIGHTLY CLOUDY (CLEAR); Bacteria FEW /HPF (NEGATIVE); Bilirubin NEGATIVE (NEGATIVE); Blood NEGATIVE Ery/ul (0-5); Epithelial Cells RARE /HPF (FEW); Glucose NEGATIVE (NEGATIVE); Hyaline Casts 26-50 /LPF (0-2); Ketones NEGATIVE (NEGATIVE); Leukocyte Esterase NEGATIVE (NEGATIVE); Mucus SLIGHT /HPF (NEGATIVE); Nitrite NEGATIVE (NEGATIVE); Protein,Urine Dip NEGATIVE (Negative); Specific Gravity 1.011 (1.005-1.025); Urobilinogen NEGATIVE mg/dL (0-1)
--- NOTE | 2019-05-08 04:23 | ERPHSYRPT ---
- History of Present Illness Time Seen by Provider: 05/08/19 02:55 Source: patient, family Exam Limitations: no limitations Patient Subjective Stated Complaint: pt fell and broke her fib/tib last night. Pt unable to maneuver to the bathroom. Triage Nursing Assessment: pt fell at home on 05/07/19 and fx her fib/tib. Pt was seen in [facility] er and sent home. Pt attempted to get up at home to go to the bathroom and was unable to maneuver on her own. Pt called Dr. Rachel and she requested pt come to ER and be admitted. Physician History: 69 y/o white female fell yesterday afternoon fracturing her left tib-fib. pt was put in a [facility] and sent home on no pain medications. pt unable to transfer or use restroom. dr. rachel called and wishes to place this pt in observation for pain control and PT eval Occurred: this afternoon Reason for Fall: tripped, fell from standing pos Injuries/Pain Location: lower extremity Loss of Consciousness: no loss of consciousness Quality: aching Severity of Pain-Max: moderate Severity of Pain-Current: moderate Modifying Factors: Improves With: movement Associated Symptoms (Fall): extremity injury (left lowr) Allergies/Adverse Reactions: adhesive Allergy (Mild, Verified 03/23/19 17:34) Blisters aspirin Allergy (Verified 03/23/19 17:34) Difficulty Breathing PT STATES THAT SHE CAN TAKE ASPIRIN 81 MG BUT NOTHING HIGHER IN DOSE. morphine Allergy (Verified 03/23/19 17:34) anaphylaxis pt went into respiratory failure and acute renal failure the last time she had morphine. "I was in a coma for a week" Penicillins Allergy (Verified 03/23/19 17:34) Rash povidone-iodine [From Betadine] Allergy (Verified 03/23/19 17:34) BLISTERES soap [From Betadine] Allergy (Verified 03/23/19 17:34) Blisters Home Medications: Allopurinol 100 mg [Zyloprim 100 mg] 100 mg PO BID 11/18/18 [History] Amiodarone HCl 200 mg [Cordarone 200 MG] 200 mg PO DAILY 11/18/18 [History ] Aspirin 81 mg PO DAILY 11/18/18 [History] Carvedilol 12.5 mg [Coreg 12.5 mg] 12.5 mg PO DAILY 11/18/18 [History] Dabigatran Etexilate Mesylate [Pradaxa] 150 mg PO BID 11/18/18 [History] HydrALAzine HCL 25 MG TAB [Apresoline 25 MG TABLET] 25 mg PO TID 11/18/18 [History] Isosorbide Mononitrate 30 mg [Imdur 30 MG] 30 mg PO DAILY 11/18/18 [History ] Losartan Potassium [Cozaar] 100 mg PO DAILY 11/18/18 [History] Multivitamin [Daily Multivitamin] 0.5 each PO BID 11/18/18 [History] [place]-3S/Dha/Epa/Fish Oil [[place] 1,050 mg Softgel] 1,050 mg PO BID [History] PANTOPRAZOLE 40 mg Tablet [Protonix 40MG Tablet] 40 mg PO DAILY 11/18/18 [ History] Ranolazine [Ranexa] 1,000 mg PO BID 11/18/18 [History] Sertraline HCl 50 mg [Zoloft 50 mg Tablet] 50 mg PO DAILY 11/18/18 [History] Torsemide 20 mg [Demadex 20 mg] 40 mg PO BID 11/18/18 [History] Albuterol/Ipratropium 3ml Neb* [DUONEB 0.5-3 MG/3 ml Neb] 3 ml IH QID PRN PRN 01/02/19 [History] Beta-Carotene(A) W-C & E/Min [Ocuvite Tablet] 1 tab PO BID 01/02/19 [ History] Potassium Chloride 10 Meq Tab* [Klor Con 10 MEQ] 40 meq PO BID 01/02/19 [ History] Insulin Glargine [Lantus Insulin] 28 unit SQ QHS 03/23/19 [History] Insulin Lispro [Humalog] 14 unit SQ UD 03/23/19 [History] Pregabalin 50 mg [Lyrica 50MG] 50 mg PO BID 03/23/19 [History] Hx Tetanus, Diphtheria Vaccination/Date Given: Yes Hx Influenza Vaccination/Date Given: Yes Hx Pneumococcal Vaccination/Date Given: Yes Immunizations Up to Date: Yes - Review of Systems Constitutional: No Symptoms Eyes: No Symptoms Ears, Nose, & Throat: No Symptoms Respiratory: No Symptoms Cardiac: No Symptoms Abdominal/Gastrointestinal: No Symptoms Genitourinary Symptoms: No Symptoms Musculoskeletal: Fall Skin: No Symptoms Neurological: No Symptoms Psychological: No Symptoms Endocrine: No Symptoms Hematologic/Lymphatic: No Symptoms Immunological/Allergic: No Symptoms All Other Systems: Reviewed and Negative - Past Medical History Pertinent Past Medical History: Yes Neurological History: No Pertinent History ENT History: No Pertinent History Cardiac History: Arrhythmia, Congestive Heart Failure, Coronary Artery Disease, High Cholesterol, Hypertension, Myocardial Infarction ([place]) Respiratory History: CHF, COPD, Pneumonia, Sleep Apnea Endocrine Medical History: Diabetes Type II Musculoskeletal History: Arthritis, Fractures GI Medical History: Hepatitis History: Other Psycho-Social History: Depression Female Reproductive Disorders: No Pertinent History Other Medical History: 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 Heart murmur with afib hx. 2-3 dialysis treatments when on vent due to morphine allergy. hx hepatitis A as a child - Past Surgical History Past Surgical History: Yes Neuro Surgical History: No Pertinent History Cardiac: No Pertinent History Respiratory: No Pertinent History Gastrointestinal: Appendectomy, Hernia Repair Genitourinary: No Pertinent History Musculoskeletal: No Pertinent History, Orthopedic Surgery Female Surgical History: Hysterectomy Other Surgical History: right hand and wrist x 16 - sinus x 3 -. cyst removed left side. NODULES REMOVED FROM BILATERAL ARMS. lt foot surgery - Social History Smoking Status: Former smoker How long have you smoked: 2years Exposure to second hand smoke: Yes Alcohol Use: None Drug Use: none Patient Lives Alone: No Significant Family History: diabetes, hypertension - Female History Hx Now: No - Nursing Vital Signs Nursing Vital Signs: Initial Vital Signs Temperature 97.5 F 05/08/19 02:49 Pulse Rate 56 L 05/08/19 02:49 Respiratory Rate 21 05/08/19 02:49 Blood Pressure 125/74 05/08/19 02:49 O2 Sat by Pulse Oximetry 97 05/08/19 02:49 Pain Scale Pain Intensity 7 - Justo Coma Score Best Eye Response (Justo): (4) open spontaneously Best Verbal Response (Justo): (5) oriented Best Motor Response (Herman): (6) obeys commands Justo Total: 15 - Physical Exam General Appearance: no apparent distress, alert, anxiety Head Injury: no evidence of injury Eye Exam: PERRL/EOMI, eyes nml inspection ENT Exam: airway nml, nml ext.inspection Neck Exam: supple, trachea midline, full range of motion, normal alignment, normal inspection Respiratory/Chest Exam: No chest tenderness, No respiratory distress, No rhonchi , No wheezing, No accessory muscle use Gastrointestinal Exam: No tenderness Rectal Exam: No not done Back Exam: normal inspection, normal range of motion, No CVA tenderness, No vertebral tenderness Extremity Exam: evidence of injury (left lower ext with cast in place. brisk cap refill), tenderness Neurologic Exam: alert, oriented x 3, cooperative, classroom monitor II-XII nml as tested Skin Exam: normal color, warm, dry SpO2 Interpretation: normal SpO2: 98 O2 Delivery: Room Air - Course Nursing assessment & vital signs reviewed: Yes Ordered Tests: Active Orders 24 hr Category Date Time Status BMP Stat Lab 05/08/19 03:27 Completed CBC W DIFF Stat Lab 05/08/19 03:27 Completed UA W/RFX UR CULTURE Stat Lab 05/08/19 04:00 Completed Medication Summary Discontinued Medications Generic Name Dose Route Start Last Admin Trade Name Freq PRN Reason Stop Dose Admin Sodium Chloride 1,000 mls @ 999 mls/hr 05/08/19 03:16 05/08/19 03:19 Sodium Chloride 0.9% 1000 Ml IV 05/08/19 04:16 999 mls/hr .Q1H1M STA Administration Sodium Chloride Confirm 05/08/19 03:18 Sodium Chloride 0.9% 1000 Ml Administered 05/08/19 03:19 Dose 1,000 mls @ ud .ROUTE .STK-MED ONE Lab/Rad Data: Laboratory Result Diagrams 05/08/19 03:27 05/08/19 03:27 Laboratory Results 05/08/19 05/08/19 05/08/19 Range/Units 04:00 03:27 03:27 WBC 8.7 (4.0-10.5) K/mm3 RBC 4.32 (4.1-5.4) M/mm3 Hgb 13.6 (12.0-16.0) gm/dl Hct 42.2 (35-47) % MCV 97.7 (78-100) fl MCH 31.5 (26-32) pg MCHC 32.2 (32-36) g/dl RDW 15.9 H (11.5-14.0) % Plt Count 215 (150-450) K/mm3 MPV 11.6 H (7.5-11.0) fl Gran % 58.3 (36.0-66.0) % Eos # (Auto) 0.07 (0-0.5) Absolute Lymphs (auto) 2.72 (1.0-4.6) Absolute Monos (auto) 0.81 (0.0-1.3) Lymphocytes % 31.4 (24.0-44.0) % Monocytes % 9.4 (0.0-12.0) % Eosinophils % 0.8 (0.00-5.0) % Basophils % 0.1 (0.0-0.4) % Absolute Granulocytes 5.05 (1.4-6.9) Basophils # 0.01 (0-0.4) Sodium 137 (137-145) mmol/L Potassium 5.2 H (3.5-5.1) mmol/L Chloride 98 (98-107) mmol/L Carbon Dioxide 31 H (22-30) mmol/L Anion Gap 14.2 (5-15) MEQ/L BUN 23 H (7-17) mg/dL Creatinine 1.03 (0.52-1.04) mg/dL Estimated GFR 56.3 ML/MIN Glucose 231 H (74-106) mg/dL Calcium 9.5 (8.4-10.2) mg/dL Urine Color YELLOW (YELLOW) Urine Appearance SLIGHTLY CLOUDY (CLEAR) Urine pH 5.0 (5-6) Ur Specific [place] 1.011 (1.005-1.025) Urine Protein NEGATIVE (Negative) Urine Ketones NEGATIVE (NEGATIVE) Urine Blood NEGATIVE (0-5) Kervin/ul Urine Nitrite NEGATIVE (NEGATIVE) Urine Bilirubin NEGATIVE (NEGATIVE) Urine Urobilinogen NEGATIVE (0-1) mg/dL Ur Leukocyte Esterase NEGATIVE (NEGATIVE) Urine WBC (Auto) 3-5 (0-5) /HPF Urine RBC (Auto) NONE (0-2) /HPF U Hyaline Cast (Auto) 26-50 (0-2) /LPF U Epithel Cells (Auto) RARE (FEW) /HPF Urine Bacteria (Auto) FEW (NEGATIVE) /HPF Urine Mucus (Auto) SLIGHT (NEGATIVE) /HPF Urine Culture Reflexed NO (NO) Urine Glucose NEGATIVE (NEGATIVE) mg/dL - Progress Progress: unchanged Counseled pt/family regarding: lab results, diagnosis - Departure Departure Disposition: Observation Clinical Impression: Fracture of left tibia and fibula Condition: Stable Critical Care Time: No Referrals: LUIS GALLOWAY MD [Primary Care Provider] -
[2019-05-08] MEDS ORDERED: Zofran 4 MG/2 ML VIAL IV PRN (04:47)
[2019-05-08] MEDS: PERCOCET TABLET 5/325MG PO PRN ×5 (04:55→23:29)
[2019-05-08] MEDS: Sodium Chloride 0.9% 1000 ML 1,000 ML IV SCH ×2 (04:57→22:43)
[2019-05-08] MEDS ORDERED: DUONEB 0.5-3 MG/3 ml Neb IH PRN (07:51)
[2019-05-08] MEDS ORDERED: NON-FORMULARY ITEM (Insulin Lispro 14 UNIT) SQ SCH (11:15)
[2019-05-08] MEDS ORDERED: PLAVIX 75 MG Tablet PO SCH (11:30)
[2019-05-08] MEDS: DEMADEX 20 MG PO SCH ×2 (12:08→17:22)
[2019-05-08] MEDS: ZOLOFT 50 MG TABLET PO SCH (12:08)
[2019-05-08] MEDS: Cozaar 50 MG PO SCH (12:08)
[2019-05-08] MEDS: ZYLOPRIM 100 MG PO SCH ×2 (12:08→22:12)
[2019-05-08] MEDS: Ocuvite Tablet PO SCH ×2 (12:08→22:11)
[2019-05-08] MEDS: Protonix 40MG Tablet PO SCH (12:08)
[2019-05-08] MEDS: ECOTRIN 81 MG PO SCH (12:08)
[2019-05-08] MEDS: Klor Con 10 MEQ PO SCH ×2 (12:08→22:11)
[2019-05-08] MEDS: Ranexa 500 MG PO SCH ×2 (12:08→22:12)
[2019-05-08] MEDS: Imdur 30 MG PO SCH (12:09)
[2019-05-08] MEDS: Lyrica 50MG PO SCH ×2 (12:09→22:11)
[2019-05-08] MEDS: COREG 12.5 MG PO SCH (12:09)
[2019-05-08] MEDS: Cordarone 200 MG PO SCH (12:09)
[2019-05-08] MEDS: NovoLOG Insulin SQ SCH ×2 (12:09→17:22)
[2019-05-08] MEDS: PRADAXA 75 MG PO SCH ×2 (12:09→23:29)
[2019-05-08] MEDS: Apresoline 25 MG TABLET PO SCH ×3 (12:09→22:11)
--- NOTE | 2019-05-08 12:42 | PCM.HP ---
History of Present Illness - Chief Complaint Chief Complaint: Fx left fib-tib History of Present Illness: is a 69 year old female pt of Dr. Solis with DM, afib, and CHF who was admitted through ER last night with L lower leg (distal fibula) fracture. She had fallen yesterday, denies syncope but just fell with her L leg folded under her. She went to [facility] and was found to have fx; splint was placed on the leg and she was discharged to home. However at home it took 4 people and her walker to get her inside her house, then she couldn't get up out of her chair to the bathroom despite assistance. She was brought back to ER on my instruction, labs were done, and she was admitted. This morning she tells me the percocet help with the pain, but she has more discomfort in her L heel. She is interested in having a rehab stay at a [facility]. Recently she was dx with otitis media (04/19/19). She was having PT with home health; in her chart it said it was d/c'd on 04/22/19 as pt was getting around well, but pt states she had 2 more fridays left of therapy. - Review of Systems Respiratory: Cough (had pna in Dec, flu in Mar) Cardiac: Edema (chronic LE) Neurological: Other (chronic LE neuropathy) Psychological: No Depression, No Suicidal Ideations All Other Systems: Reviewed and Negative Medications & Allergies Home Medications: Home Medication List Allopurinol 100 mg [Zyloprim 100 mg] 100 mg PO BID 11/18/18 [History Confirmed 05/08/19] Amiodarone HCl 200 mg [Cordarone 200 MG] 200 mg PO DAILY 11/18/18 [ History Confirmed 05/08/19] Aspirin 81 mg PO DAILY 11/18/18 [History Confirmed 05/08/19] Carvedilol 12.5 mg [Coreg 12.5 mg] 12.5 mg PO DAILY 11/18/18 [History Confirmed 05/08/19] Dabigatran Etexilate Mesylate [Pradaxa] 150 mg PO BID 11/18/18 [History Confirmed 05/08/19] HydrALAzine HCL 25 MG TAB [Apresoline 25 MG TABLET] 25 mg PO TID 11/18/18 [History Confirmed 05/08/19] Isosorbide Mononitrate 30 mg [Imdur 30 MG] 30 mg PO DAILY 11/18/18 [ History Confirmed 05/08/19] Losartan Potassium [Cozaar] 100 mg PO DAILY 11/18/18 [History Confirmed 05/08/19 ] Multivitamin [Daily Multivitamin] 0.5 each PO BID 11/18/18 [History Confirmed ] [place]-3S/Dha/Epa/Fish Oil [[place] Power 1,050 mg Softgel] 1,050 mg PO BID [History Confirmed 05/08/19] PANTOPRAZOLE 40 mg Tablet [Protonix 40MG Tablet] 40 mg PO DAILY 11/18/18 [ History Confirmed 05/08/19] Ranolazine [Ranexa] 1,000 mg PO BID 11/18/18 [History Confirmed 05/08/19] Sertraline HCl 50 mg [Zoloft 50 mg Tablet] 50 mg PO DAILY 11/18/18 [History Confirmed 05/08/19] Torsemide 20 mg [Demadex 20 mg] 40 mg PO BID 11/18/18 [History Confirmed 05/08/19] Albuterol/Ipratropium 3ml Neb* [DUONEB 0.5-3 MG/3 ml Neb] 3 ml IH QID PRN PRN 01/02/19 [History Confirmed 05/08/19] Beta-Carotene(A) W-C & E/Min [Ocuvite Tablet] 1 tab PO BID 01/02/19 [ History Confirmed 05/08/19] Potassium Chloride 10 Meq Tab* [Klor Con 10 MEQ] 40 meq PO BID 01/02/19 [ History Confirmed 05/08/19] Insulin Glargine [Lantus Insulin] 28 unit SQ QHS 03/23/19 [History Confirmed 05/08/19] Insulin Lispro [Humalog] 14 unit SQ UD 03/23/19 [History Confirmed 05/08/19] Pregabalin 50 mg [Lyrica 50MG] 50 mg PO BID 03/23/19 [History Confirmed ] Allergies/Adverse Reactions: Allergies Allergy/AdvReac Type Severity Reaction Status Date / Time adhesive Allergy Mild Blisters Verified 03/23/19 17:34 aspirin Allergy Difficulty Verified 03/23/19 17:34 Breathing morphine Allergy anaphylaxis Verified 03/23/19 17:34 Penicillins Allergy Rash Verified 03/23/19 17:34 povidone-iodine Allergy BLISTERES Verified 03/23/19 17:34 [From Betadine] soap [From Betadine] Allergy Blisters Verified 03/23/19 17:34 - Past Medical History Past Medical History: Yes Neurological History: No Pertinent History ENT History: No Pertinent History Cardiac History: Congestive Heart Failure, Hypertension, Myocardial Infarction ( [place]), Other Respiratory History: CHF, COPD Endocrine Medical History: Diabetes Type II Musculoskelatal History: Fractures, Rheumatoid Arthritis GI Medical History: No Pertinent History History: No Pertinent History Pyscho-Social History: No Pertinent History Reproductive Disorders: No Pertinent History Comment: 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 Heart murmur with afib hx. 2-3 dialysis treatments when on vent due to morphine allergy. hx hepatitis A as a child - Female History Are you now?: No - Past Surgical History Past Surgical History: Yes Neuro Surgical History: No Pertinent History Cardiac History: No Pertinent History Respiratory Surgery: No Pertinent History GI Surgical History: Appendectomy Genitourinary Surgical Hx: No Pertinent History Musculskeletal Surgical Hx: Orthopedic Surgery Female Surgical History: Hysterectomy Other Surgical History: Multiple hand surgeries, right knee surgery - Social History Smoking Status: Former smoker How long have you smoked: 1 year Exposure to second hand smoke: Yes Alcohol: None Drug Use: none Significant Family History: diabetes, hypertension - Physical Exam Vital Signs: Vital Signs - 24 hr Temp Pulse Resp BP Pulse Ox 05/08/19 12:00 97.9 F 61 18 128/60 91 L 05/08/19 07:54 97.6 F 58 L 16 125/57 94 L 05/08/19 07:51 62 18 95 05/08/19 05:08 97.5 F 55 L 18 157/69 97 05/08/19 04:25 98 05/08/19 04:08 57 L 141/63 98 05/08/19 03:35 54 L 20 165/73 99 05/08/19 02:49 97.5 F 56 L 21 125/74 97 General Appearance: no apparent distress, alert, obese Neurologic Exam: oriented x 3, cooperative Eye Exam: eyes nml inspection Ears, Nose, Throat Exam: moist mucous membranes Neck Exam: normal inspection, non-tender, No lymphadenopathy Respiratory Exam: normal breath sounds, lungs clear, No crackles/rales, No rhonchi, No wheezing Cardiovascular Exam: regular rate/rhythm, normal heart sounds, No murmur Gastrointestinal/Abdomen Exam: soft, normal bowel sounds, No tenderness, No distention, No mass, No guarding, No rebound Extremity Exam: other (LLE wrapped from knee to mid foot. toes are warm with cap rf < 2 sec) Skin Exam: normal color, warm, dry, No rash Results - Labs Lab/Micro Results: Accuchecks Accucheck Value: 206 Accucheck Value: 95 Lab Results-Last 24 Hours 05/08/19 05/08/19 05/08/19 Range/Units 03:27 03:27 04:00 WBC 8.7 (4.0-10.5) K/mm3 RBC 4.32 (4.1-5.4) M/mm3 Hgb 13.6 (12.0-16.0) gm/dl Hct 42.2 (35-47) % MCV 97.7 (78-100) fl MCH 31.5 (26-32) pg MCHC 32.2 (32-36) g/dl RDW 15.9 H (11.5-14.0) % Plt Count 215 (150-450) K/mm3 MPV 11.6 H (7.5-11.0) fl Gran % 58.3 (36.0-66.0) % Eos # (Auto) 0.07 (0-0.5) Absolute Lymphs (auto) 2.72 (1.0-4.6) Absolute Monos (auto) 0.81 (0.0-1.3) Lymphocytes % 31.4 (24.0-44.0) % Monocytes % 9.4 (0.0-12.0) % Eosinophils % 0.8 (0.00-5.0) % Basophils % 0.1 (0.0-0.4) % Absolute Granulocytes 5.05 (1.4-6.9) Basophils # 0.01 (0-0.4) Sodium 137 (137-145) mmol/L Potassium 5.2 H (3.5-5.1) mmol/L Chloride 98 (98-107) mmol/L Carbon Dioxide 31 H (22-30) mmol/L Anion Gap 14.2 (5-15) MEQ/L BUN 23 H (7-17) mg/dL Creatinine 1.03 (0.52-1.04) mg/dL Estimated GFR 56.3 ML/MIN Glucose 231 H (74-106) mg/dL Hemoglobin A1c (4.5-6.0) % Calcium 9.5 (8.4-10.2) mg/dL Urine Color YELLOW (YELLOW) Urine Appearance SLIGHTLY CLOUDY (CLEAR) Urine pH 5.0 (5-6) Ur Specific [place] 1.011 (1.005-1.025) Urine Protein NEGATIVE (Negative) Urine Ketones NEGATIVE (NEGATIVE) Urine Blood NEGATIVE (0-5) Kervin/ul Urine Nitrite NEGATIVE (NEGATIVE) Urine Bilirubin NEGATIVE (NEGATIVE) Urine Urobilinogen NEGATIVE (0-1) mg/dL Ur Leukocyte Esterase NEGATIVE (NEGATIVE) Urine WBC (Auto) 3-5 (0-5) /HPF Urine RBC (Auto) NONE (0-2) /HPF U Hyaline Cast (Auto) 26-50 (0-2) /LPF U Epithel Cells (Auto) RARE (FEW) /HPF Urine Bacteria (Auto) FEW (NEGATIVE) /HPF Urine Mucus (Auto) SLIGHT (NEGATIVE) /HPF Urine Culture Reflexed NO (NO) Urine Glucose NEGATIVE (NEGATIVE) mg/dL 05/08/19 Range/Units 04:00 WBC (4.0-10.5) K/mm3 RBC (4.1-5.4) M/mm3 Hgb (12.0-16.0) gm/dl Hct (35-47) % MCV (78-100) fl MCH (26-32) pg MCHC (32-36) g/dl RDW (11.5-14.0) % Plt Count (150-450) K/mm3 MPV (7.5-11.0) fl Gran % (36.0-66.0) % Eos # (Auto) (0-0.5) Absolute Lymphs (auto) (1.0-4.6) Absolute Monos (auto) (0.0-1.3) Lymphocytes % (24.0-44.0) % Monocytes % (0.0-12.0) % Eosinophils % (0.00-5.0) % Basophils % (0.0-0.4) % Absolute Granulocytes (1.4-6.9) Basophils # (0-0.4) Sodium (137-145) mmol/L Potassium (3.5-5.1) mmol/L Chloride (98-107) mmol/L Carbon Dioxide (22-30) mmol/L Anion Gap (5-15) MEQ/L BUN (7-17) mg/dL Creatinine (0.52-1.04) mg/dL Estimated GFR ML/MIN Glucose (74-106) mg/dL Hemoglobin A1c 6.75 H (4.5-6.0) % Calcium (8.4-10.2) mg/dL Urine Color (YELLOW) Urine Appearance (CLEAR) Urine pH (5-6) Ur Specific [place] (1.005-1.025) Urine Protein (Negative) Urine Ketones (NEGATIVE) Urine Blood (0-5) Kervin/ul Urine Nitrite (NEGATIVE) Urine Bilirubin (NEGATIVE) Urine Urobilinogen (0-1) mg/dL Ur Leukocyte Esterase (NEGATIVE) Urine WBC (Auto) (0-5) /HPF Urine RBC (Auto) (0-2) /HPF U Hyaline Cast (Auto) (0-2) /LPF U Epithel Cells (Auto) (FEW) /HPF Urine Bacteria (Auto) (NEGATIVE) /HPF Urine Mucus (Auto) (NEGATIVE) /HPF Urine Culture Reflexed (NO) Urine Glucose (NEGATIVE) mg/dL Accuchecks Accucheck Value: 206 Accucheck Value: 95 - Other Procedures and Tests Respiratory Therapy 05/08/19 07:47 Peak Expiratory Flow Rate ONCE Respiratory Therapy Assessment DAILY 05/08/19 07:48 BiPap/CPAP ROUTINE Oxygen Nasal Cannula 2 lpm Assessment/Plan (1) Left fibular fracture Current Visit: Yes Status: Acute Qualifiers: Encounter type: initial encounter Fibula location: distal Fracture type: closed Fracture morphology: unspecified fracture morphology Qualified Code(s ): S82.832A - Other fracture of upper and lower end of left fibula, initial encounter for closed fracture Assessment & Plan: Pt has a splint on; may need to be re-done due to her heel pain. PT to work with pt please. She does not meet criteria for inpatient stay here or for LTCF stay at this time. Code(s): S82.402A - UNSP FRACTURE OF SHAFT OF LEFT FIBULA, INIT FOR CLOS FX (2) Pain of left heel Current Visit: Yes Status: Acute Assessment & Plan: xr Code(s): M79.672 - PAIN IN LEFT FOOT (3) Frequent falls Current Visit: Yes Status: Acute Code(s): R29.6 - REPEATED FALLS (4) CKD (chronic kidney disease) Current Visit: No Status: Chronic Qualifiers: Chronic kidney disease stage: stage 2 (mild) Qualified Code(s): N18.2 - Chronic kidney disease, stage 2 (mild) Code(s): N18.9 - CHRONIC KIDNEY DISEASE, UNSPECIFIED (5) Weakness Current Visit: No Status: Chronic Code(s): R53.1 - WEAKNESS (6) Chronic obstructive lung disease Current Visit: No Status: Chronic Code(s): J44.9 - CHRONIC OBSTRUCTIVE PULMONARY DISEASE, UNSPECIFIED (7) Diabetes mellitus Current Visit: No Status: Chronic Qualifiers: Diabetes mellitus type: type 2 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
--- NOTE | 2019-05-08 19:49 | XRAY ---
Indication: Heel pain. Comparison: February 02, 2007. 2 nonweightbearing views of the left foot demonstrates new posterior casting/bandage material limiting evaluation for fine bony detail. New nondisplaced 3rd proximal metatarsal shaft fracture of uncertain chronicity with soft tissue swelling. New Achilles tendon calcifications probable sequela to old injury/inflammation. Mild 1st MTP degenerative changes. Remaining foot unremarkable. Comment: Preliminary interpretation was made by [facility]. No critical discrepancy.
[2019-05-08] MEDS ORDERED: RANOLAZINE 1000 MG PO SCH (22:00)
[2019-05-08] MEDS ORDERED: NON-FORMULARY ITEM (Dabigatran Etexilate Mesylate [Pradaxa] 150 MG) PO SCH (22:00)
[2019-05-08] MEDS ORDERED: Ativan 0.5 MG PO ONE (22:00)
[2019-05-08] MEDS: Lantus Insulin SQ SCH (22:21)
[2019-05-09 05:14] LABS: Mean Cell Volume 100.6 fl (78-100); Mean Corpuscular Hemoglobin 31.6 pg (26-32); Mean Corpuscular Hgb Concent. 31.4 g/dl (32-36); Mean Platelet Volume 11.3 fl (7.5-11.0); Platelet Count 194 K/mm3 (150-450); Red Blood Count 3.48 M/mm3 (4.1-5.4); Red Cell Distribution Width 16.2 % (11.5-14.0); White Blood Count 6.7 K/mm3 (4.0-10.5)
[2019-05-09 05:48] LABS: ANION GAP 10.7 MEQ/L (5-15); Calcium 8.5 mg/dL (8.4-10.2); Creatinine 1 1.34 mg/dL (0.52-1.04); Potassium 5.2 mmol/L (3.5-5.1)
[2019-05-09] MEDS: PERCOCET TABLET 5/325MG PO PRN ×4 (06:53→22:02)
[2019-05-09] MEDS: NovoLOG Insulin SQ SCH ×3 (08:09→16:54)
[2019-05-09] MEDS ORDERED: NON-FORMULARY ITEM (Aspirin [Aspirin] 81 MG) PO SCH (10:00)
[2019-05-09] MEDS ORDERED: NON-FORMULARY ITEM (Losartan Potassium [Cozaar] 100 MG) PO SCH (10:00)
[2019-05-09] MEDS: Imdur 30 MG PO SCH (10:12)
[2019-05-09] MEDS: COREG 12.5 MG PO SCH (10:12)
[2019-05-09] MEDS: DEMADEX 20 MG PO SCH ×2 (10:12→16:52)
[2019-05-09] MEDS: ECOTRIN 81 MG PO SCH (10:12)
[2019-05-09] MEDS: Cozaar 50 MG PO SCH (10:12)
[2019-05-09] MEDS: Cordarone 200 MG PO SCH (10:12)
[2019-05-09] MEDS: Apresoline 25 MG TABLET PO SCH ×3 (10:12→22:00)
[2019-05-09] MEDS: Protonix 40MG Tablet PO SCH (10:13)
[2019-05-09] MEDS: PRADAXA 75 MG PO SCH ×2 (10:13→22:01)
[2019-05-09] MEDS: Ranexa 500 MG PO SCH ×2 (10:13→22:01)
[2019-05-09] MEDS: Ocuvite Tablet PO SCH ×2 (10:13→22:01)
[2019-05-09] MEDS: Lyrica 50MG PO SCH ×2 (10:13→22:01)
[2019-05-09] MEDS: ZOLOFT 50 MG TABLET PO SCH (10:14)
[2019-05-09] MEDS: ZYLOPRIM 100 MG PO SCH ×2 (10:14→22:02)
[2019-05-09] MEDS: Klor Con 10 MEQ PO SCH ×2 (10:17→22:00)
--- NOTE | 2019-05-09 13:44 | PCM.NOTE ---
Date and Time: 05/09/19 1338 Subjective Assessment: Pt also found to have proximal 3rd metatarsal fx yesterday on xr foot. Still c/ o leg and heel pain, 7/10, better with po pain meds (just had pain meds when pt was seen at approx 0940). Was on bipap overnight, now on NC (wears CPAP at home ). - Review of Systems Constitutional: No Fever Musculoskeletal: Injury Objective Exam General Appearance: no apparent distress, alert, obese Neurologic Exam: oriented x 3, cooperative Skin Exam: normal color, warm, dry, No rash Respiratory Exam: normal breath sounds, lungs clear, No crackles/rales, No rhonchi, No wheezing Cardiovascular Exam: regular rate/rhythm, normal heart sounds, No murmur Gastrointestinal/Abdomen Exam: soft, normal bowel sounds, No tenderness, No distention, No mass, No guarding, No rebound Extremity Exam: other (LLE wrapped as before; toes are warm with cap rf < 2 sec , and able to move somewhat) OBJECTIVE DATA Vital Signs: Vital Signs - 24 hr Temp Pulse Resp BP Pulse Ox 05/09/19 11:23 98.2 F 63 18 118/56 94 L 05/09/19 08:05 62 18 92 L 05/09/19 07:22 97.7 F 58 L 18 132/59 90 L 05/09/19 04:20 97.4 F 54 L 18 110/53 93 L 05/08/19 23:37 97.6 F 57 L 18 95/45 95 05/08/19 20:10 98.2 F 61 20 110/53 93 L 05/08/19 19:55 63 20 92 L 05/08/19 16:00 98.7 F 73 16 124/56 92 L Pain Assessment - Last Documented Pain Intensity 6 Pain Scale Used 0-10 Pain Scale Intake and Output: Intake & Output 05/07/19 05/08/19 05/09/19 05/10/19 11:59 11:59 11:59 11:59 Intake Total 360 2771 240 Output Total 1000 1150 601 Balance -640 1621 -361 Weight 112.9 kg 114.7 kg Lab Results: Accuchecks Accucheck Value: 131 Accucheck Value: 108 Accucheck Value: 86 Accucheck Value: 194 Lab Results-Last 24 Hours 05/09/19 05/09/19 Range/Units 05:09 05:09 WBC 6.7 (4.0-10.5) K/mm3 RBC 3.48 L (4.1-5.4) M/mm3 Hgb 11.0 L (12.0-16.0) gm/dl Hct 35.0 (35-47) % MCV 100.6 H (78-100) fl MCH 31.6 (26-32) pg MCHC 31.4 L (32-36) g/dl RDW 16.2 H (11.5-14.0) % Plt Count 194 (150-450) K/mm3 MPV 11.3 H (7.5-11.0) fl Sodium 139 (137-145) mmol/L Potassium 5.2 H (3.5-5.1) mmol/L Chloride 105 (98-107) mmol/L Carbon Dioxide 27 (22-30) mmol/L Anion Gap 10.7 (5-15) MEQ/L BUN 25 H (7-17) mg/dL Creatinine 1.34 H (0.52-1.04) mg/dL Estimated GFR 41.6 ML/MIN Glucose 116 H (74-106) mg/dL Calcium 8.5 (8.4-10.2) mg/dL Radiology Exams: Radiology Procedures Category Date Time Status FOOT (2 VIEWS) Routine Exams 05/08/19 13:15 Completed Assessment/Plan (1) Left fibular fracture Current Visit: Yes Status: Acute Qualifiers: Encounter type: initial encounter Fibula location: distal Fracture type: closed Fracture morphology: unspecified fracture morphology Qualified Code(s ): S82.832A - Other fracture of upper and lower end of left fibula, initial encounter for closed fracture Code(s): S82.402A - UNSP FRACTURE OF SHAFT OF LEFT FIBULA, INIT FOR CLOS FX (2) Metatarsal fracture Current Visit: Yes Status: Acute Qualifiers: Encounter type: subsequent encounter Metatarsal bone: third Fracture type : closed Fracture alignment: nondisplaced Laterality: left Fracture healing: with routine healing Qualified Code(s): S92.335D - Nondisplaced fracture of third metatarsal bone, left foot, subsequent encounter for fracture with routine healing (3) Pain of left heel Current Visit: Yes Status: Acute Code(s): M79.672 - PAIN IN LEFT FOOT (4) Frequent falls Current Visit: Yes Status: Acute Code(s): R29.6 - REPEATED FALLS (5) CKD (chronic kidney disease) Current Visit: No Status: Chronic Qualifiers: Chronic kidney disease stage: stage 2 (mild) Qualified Code(s): N18.2 - Chronic kidney disease, stage 2 (mild) Assessment & Plan: worse today - will increase IV fluids. Code(s): N18.9 - CHRONIC KIDNEY DISEASE, UNSPECIFIED (6) Weakness Current Visit: No Status: Chronic Code(s): R53.1 - WEAKNESS (7) Chronic obstructive lung disease Current Visit: No Status: Chronic Code(s): J44.9 - CHRONIC OBSTRUCTIVE PULMONARY DISEASE, UNSPECIFIED (8) Diabetes mellitus Current Visit: No Status: Chronic Qualifiers: Diabetes mellitus type: type 2 Diabetes mellitus custodial insulin use: with intermediate designer use Diabetes mellitus complication status: with hyperglycemia Qualified Code(s): E11.65 - Type 2 diabetes mellitus with hyperglycemia; Z79.4 - terminal block assembler (current) use of insulin Code(s): E11.9 - TYPE 2 DIABETES MELLITUS WITHOUT COMPLICATIONS (9) Essential hypertension Current Visit: No Status: Chronic Code(s): I10 - ESSENTIAL (PRIMARY) HYPERTENSION (10) Paroxysmal atrial fibrillation Current Visit: No Status: Chronic Code(s): I48.0 - PAROXYSMAL ATRIAL FIBRILLATION (11) Insomnia Current Visit: Yes Status: Acute Qualifiers: Insomnia type: primary Qualified Code(s): F51.01 - Primary insomnia Assessment & Plan: ativan prn [facility] Code(s): G47.00 - INSOMNIA, UNSPECIFIED (12) Hyperkalemia Current Visit: Yes Status: Acute Assessment & Plan: Likely related to the chronic renal disease. Mild. Code(s): E87.5 - HYPERKALEMIA
[2019-05-09] MEDS ORDERED: Miralax Powder 17GM PACKET PO PRN (13:46)
[2019-05-09] MEDS: Sodium Chloride 0.9% 1000 ML 1,000 ML IV SCH (18:11)
[2019-05-09] MEDS: Lantus Insulin SQ SCH (22:01)
[2019-05-09] MEDS: Ativan 1 MG PO PRN (22:02)
[2019-05-10] MEDS: PERCOCET TABLET 5/325MG PO PRN ×2 (02:04→08:15)
[2019-05-10 05:06] LABS: Hematocrit 35.7 % (35-47); Hemoglobin 11.2 gm/dl (12.0-16.0); Mean Cell Volume 101.4 fl (78-100); Mean Corpuscular Hemoglobin 31.8 pg (26-32); Mean Corpuscular Hgb Concent. 31.4 g/dl (32-36); Mean Platelet Volume 11.3 fl (7.5-11.0); Platelet Count 170 K/mm3 (150-450); Red Blood Count 3.52 M/mm3 (4.1-5.4); Red Cell Distribution Width 15.8 % (11.5-14.0); White Blood Count 8.1 K/mm3 (4.0-10.5)
[2019-05-10 05:15] LABS: ANION GAP 9.2 MEQ/L (5-15); Calcium 8.4 mg/dL (8.4-10.2); Potassium 4.5 mmol/L (3.5-5.1)
[2019-05-10] MEDS: Sodium Chloride 0.9% 1000 ML 1,000 ML IV SCH ×2 (05:30→17:35)
[2019-05-10] MEDS: NovoLOG Insulin SQ SCH ×3 (07:40→18:38)
[2019-05-10] MEDS: Cozaar 50 MG PO SCH (08:22)
[2019-05-10] MEDS: DEMADEX 20 MG PO SCH ×2 (08:22→16:45)
[2019-05-10] MEDS: Protonix 40MG Tablet PO SCH (08:23)
[2019-05-10] MEDS: Ocuvite Tablet PO SCH ×2 (08:23→21:37)
[2019-05-10] MEDS: PRADAXA 75 MG PO SCH ×2 (08:23→21:36)
[2019-05-10] MEDS: Apresoline 25 MG TABLET PO SCH ×3 (08:23→21:37)
[2019-05-10] MEDS: Lyrica 50MG PO SCH ×2 (08:23→21:36)
[2019-05-10] MEDS: COREG 12.5 MG PO SCH (08:23)
[2019-05-10] MEDS: Klor Con 10 MEQ PO SCH ×2 (08:23→21:36)
[2019-05-10] MEDS: Ranexa 500 MG PO SCH ×2 (08:23→21:37)
[2019-05-10] MEDS: Imdur 30 MG PO SCH (08:23)
[2019-05-10] MEDS: ZOLOFT 50 MG TABLET PO SCH (08:24)
[2019-05-10] MEDS: ZYLOPRIM 100 MG PO SCH ×2 (08:24→21:36)
[2019-05-10] MEDS: ECOTRIN 81 MG PO SCH (08:24)
[2019-05-10] MEDS: Cordarone 200 MG PO SCH (08:24)
--- NOTE | 2019-05-10 08:38 | PCM.NOTE ---
Date and Time: 05/10/19 0834 Subjective Assessment: patient has reasonable control of pain but is insistent that she is unable to use a walker or wheelchair and knows she will be unsafe and able to care for herself in her home, she lives alone. Objective Exam General Appearance: no apparent distress, obese Neurologic Exam: alert, oriented x 3 Respiratory Exam: normal breath sounds, lungs clear, No respiratory distress Cardiovascular Exam: regular rate/rhythm, normal heart sounds Gastrointestinal/Abdomen Exam: soft, No tenderness, No mass Extremity Exam: other (cap refill intact left toes, posterior splint in place) OBJECTIVE DATA Vital Signs: Vital Signs - 24 hr Temp Pulse Resp BP Pulse Ox 05/10/19 07:24 93 L 05/10/19 07:08 98 F 66 18 100/58 93 L 05/10/19 04:00 98.6 F 62 16 114/57 92 L 05/10/19 00:00 98.1 F 64 20 130/64 94 L 05/09/19 20:52 55 L 18 95 05/09/19 20:44 97.8 F 80 18 111/54 94 L 05/09/19 16:00 98.2 F 55 L 18 107/49 95 05/09/19 11:23 98.2 F 63 18 118/56 94 L Pain Assessment - Last Documented Pain Intensity 7 Pain Scale Used 0-10 Pain Scale Intake and Output: Intake & Output 05/07/19 05/08/19 05/09/19 05/10/19 11:59 11:59 11:59 11:59 Intake Total 360 2771 2474 Output Total 1000 1150 2451 Balance -640 1621 23 Weight 112.9 kg 114.7 kg 114.8 kg Lab Results: Accuchecks Date 05/10/19 Time 07:30 Accucheck Value: 167 Accucheck Value: 86 Accucheck Value: 131 Lab Results-Last 24 Hours 05/10/19 05/10/19 Range/Units 04:32 04:32 WBC 8.1 (4.0-10.5) K/mm3 RBC 3.52 L (4.1-5.4) M/mm3 Hgb 11.2 L (12.0-16.0) gm/dl Hct 35.7 (35-47) % MCV 101.4 H (78-100) fl MCH 31.8 (26-32) pg MCHC 31.4 L (32-36) g/dl RDW 15.8 H (11.5-14.0) % Plt Count 170 (150-450) K/mm3 MPV 11.3 H (7.5-11.0) fl Sodium 138 (137-145) mmol/L Potassium 4.5 (3.5-5.1) mmol/L Chloride 102 (98-107) mmol/L Carbon Dioxide 32 H (22-30) mmol/L Anion Gap 9.2 (5-15) MEQ/L BUN 23 H (7-17) mg/dL Creatinine 1.00 (0.52-1.04) mg/dL Estimated GFR 58.3 ML/MIN Glucose 148 H (74-106) mg/dL Calcium 8.4 (8.4-10.2) mg/dL Radiology Exams: Radiology Procedures Category Date Time Status FOOT (2 VIEWS) Routine Exams 05/08/19 13:15 Completed Assessment/Plan (1) Left fibular fracture Current Visit: Yes Status: Acute Qualifiers: Encounter type: initial encounter Fibula location: distal Fracture type: closed Fracture morphology: unspecified fracture morphology Qualified Code(s ): S82.832A - Other fracture of upper and lower end of left fibula, initial encounter for closed fracture Assessment & Plan: patient is unsafe to care for herself, her risk of fall and further injury is unacceptably high, will consult discharge planning as she and I both feel she needs a rehab stay to heal from injuries. Code(s): S82.402A - UNSP FRACTURE OF SHAFT OF LEFT FIBULA, INIT FOR CLOS FX (2) Metatarsal fracture Current Visit: Yes Status: Acute Qualifiers: Encounter type: subsequent encounter Metatarsal bone: third Fracture type : closed Fracture alignment: nondisplaced Laterality: left Fracture healing: with routine healing Qualified Code(s): S92.335D - Nondisplaced fracture of third metatarsal bone, left foot, subsequent encounter for fracture with routine healing (3) Frequent falls Current Visit: Yes Status: Acute Code(s): R29.6 - REPEATED FALLS (4) CKD (chronic kidney disease) Current Visit: No Status: Chronic Qualifiers: Chronic kidney disease stage: stage 2 (mild) Qualified Code(s): N18.2 - Chronic kidney disease, stage 2 (mild) Code(s): N18.9 - CHRONIC KIDNEY DISEASE, UNSPECIFIED (5) Chronic obstructive lung disease Current Visit: No Status: Chronic Code(s): J44.9 - CHRONIC OBSTRUCTIVE PULMONARY DISEASE, UNSPECIFIED (6) Diabetes mellitus Current Visit: No Status: Chronic Qualifiers: Diabetes mellitus type: type 2 Diabetes mellitus detention insulin use: with extermination supervisor use Diabetes mellitus complication status: with hyperglycemia Qualified Code(s): E11.65 - Type 2 diabetes mellitus with hyperglycemia; Z79.4 - FPC (current) use of insulin Code(s): E11.9 - TYPE 2 DIABETES MELLITUS WITHOUT COMPLICATIONS (7) Paroxysmal atrial fibrillation Current Visit: No Status: Chronic Code(s): I48.0 - PAROXYSMAL ATRIAL FIBRILLATION (8) Renal insufficiency Current Visit: No Status: Chronic
[2019-05-10] MEDS: Lantus Insulin SQ SCH (21:38)
[2019-05-11] MEDS: PERCOCET TABLET 5/325MG PO PRN ×3 (04:19→18:03)
[2019-05-11] MEDS: Sodium Chloride 0.9% 1000 ML 1,000 ML IV SCH ×2 (06:37→20:02)
[2019-05-11] MEDS: NovoLOG Insulin SQ SCH ×3 (08:09→18:04)
--- NOTE | 2019-05-11 09:05 | PCM.NOTE ---
Date and Time: 05/11/19901 Subjective Assessment: Pt had desat last night into the 80s, was on her bipap/cpap but had to be increased to 5L NC (was 2L NC yesterday). still having pain in leg. takes 2 assist to get pt to bedside commode. - Review of Systems Constitutional: No Fever Abdominal/Gastrointestinal: No Vomiting Objective Exam General Appearance: no apparent distress, alert, obese Neurologic Exam: oriented x 3, cooperative Skin Exam: normal color, warm, dry, No rash Ears, Nose, Throat Exam: moist mucous membranes Neck Exam: normal inspection Respiratory Exam: normal breath sounds, lungs clear, No crackles/rales, No rhonchi, No wheezing Cardiovascular Exam: regular rate/rhythm, normal heart sounds, No murmur Gastrointestinal/Abdomen Exam: soft, normal bowel sounds, No tenderness Extremity Exam: other (LLE in cast; toes are warm with cap rf < 2 sec) OBJECTIVE DATA Vital Signs: Vital Signs - 24 hr Temp Pulse Resp BP Pulse Ox 05/11/19 07:26 98.6 F 60 18 125/58 94 L 05/11/19 04:00 98.9 F 65 14 116/57 95 05/11/19 00:00 98.7 F 70 20 117/58 93 L 05/10/19 20:07 80 17 90 L 05/10/19 20:00 98.5 F 76 21 136/61 90 L 05/10/19 16:55 98.1 F 82 20 134/68 97 05/10/19 12:20 97.8 F 80 20 134/61 98 Pain Assessment - Last Documented Pain Intensity 7 Pain Scale Used 0-10 Pain Scale Intake and Output: Intake & Output 05/08/19 05/09/19 05/10/19 05/11/19 11:59 11:59 11:59 11:59 Intake Total 360 2041 6444 3456 Output Total 1000 1150 2901 4000 Balance -640 1141 -394 -876 Weight 112.9 kg 114.7 kg 114.8 kg Lab Results: Accuchecks Date 05/10/19 Date 05/10/19 Date 05/10/19 Time 21:00 Time 16:30 Time 13:30 Accucheck Value: 157 Accucheck Value: 211 Accucheck Value: 138 Accucheck Value: 105 Multi-Disciplinary Progress Notes: Multi-Disciplinary Progress Notes 05/11/19 03:37 Respiratory Note by Jewel Lauren CHECKED PT SPO2 AND SHE WAS 92% ON 5LPM O2 NC. Initialized on 05/11/19 03:37 - END OF NOTE 05/10/19 23:51 Respiratory Note by XinJewel CHECKED ON PT, HER EXPLOSIVE TECHNICIAN PROBE WAS OFF, ONCE I PLACED IT SATS WERE 93% ON 5LPM. Initialized on 05/10/19 23:51 - END OF NOTE 05/10/19 21:55 Respiratory Note by Jewel Lauren PT NEEDED TO GET UP TO BSC. I PLACED PT ON JUST 5LPM NC AND WHEN SHE WAS FINISHED HER SATS MAINTAINED 94%, HR 72, RR 20. I ASKED IF PT WAS OK WITH STAYING ON NC FOR THE TIME BEING AND SHE STATED SHE WAS. RE-ADJUSTED PT IN BED W/ MID LEVEL CLINICIAN AND INFORMED NURSING OF CHANGE. Initialized on 05/10/19 21:55 - END OF NOTE 05/10/19 20:58 Respiratory Note by Jewel Lauren PT REMOVED EXPLOSIVE TECHNICIAN FROM FINGER, REATTACHED AND IT WAS 90% ON CPAP OF 14 W/ 5LPM INLINE. PT KEPT MESSING WITH CPAP MASK SO I TOOK IT OFF AND READJUSTED AND TIGHTENED IT TO PREVENT LEAK. Initialized on 05/10/19 20:58 - END OF NOTE 05/10/19 20:18 Respiratory Note by Jewel Lauren HAVE BEEN CALLED TO PT RM MULTIPLE TIMES SINCE MY ROUNDS STARTED FOR LOW SATS. I HAVE PLACED PT ON CPAP, ADDED 4LPM INLINE, INCREASED IT TO 5LPM INLINE, NURSING AND I BOOSTED HER UP IN BED, RAISED HOB UP, CHECKED ALL CONNECTIONS W/ O2 TUBING AND CPAP TUBING, CHANGED FINGERS W/ PROBE, THIS LAST TIME WE ENTERED PT RM SHE HAD ACCIDENTALLY PULLED HOSE OFF OF CPAP MASK AND EXPLOSIVE TECHNICIAN THRU TELE WAS ALARMING AND NURSING CALLED ME TO HER RM. PT STATES SHE IS NOT IN PAIN AND IS ALERT WHEN WE TALK TO HER BUT STATES THAT SHE IS JUST VERY TIRED. CURRENTLY SATS ON 5LPM INLINE A CPAP OF 14CM H2O IS RANGING FROM 87% TO 91%. Initialized on 05/10/19 20:18 - END OF NOTE 05/10/19 20:12 Respiratory Note by Jewel Lauren CALLED TO PT RM FOR LOW SATS ON RA, MID LEVEL CLINICIAN HAD PLACED HER ON 2LPM NC AND SATS WERE STILL LOW AND THEY INCREASED IT TO 4LPM. WHEN I ENTERED PT RM I PUT PT ON CPAP W/ 4LPM INLINE AND SATS CARMELA TO 90%. Initialized on 05/10/19 20:12 - END OF NOTE 05/10/19 11:00 (created 05/10/19 11:41) Case Management Note by Jackie Sequeira REFERRAL TO [facility]. FAXED INFORMATION PER THEIR REQUEST. Initialized on 05/10/19 11:41 - END OF NOTE 05/10/19 10:00 (created 05/10/19 11:32) Case Management Note by Jackie Sequeira PT REPORTS THAT SHE FEELS THAT SHE NEEDS TO GO TO [facility] FOR REHAB STAY ON DISCHARGE. REPORTS THAT SHE IS UNABLE TO AMBULATE OR PROVIDE SELF CARE AT PRESENT. LIVES WITH HER DAUGHTER, BUT REPORTS THAT HER DAUGHTER IS NOT ABLE TO PROVIDE THE CARE THAT SHE NEEDS. DISCUSSED THAT INSURANCE WILL NOT COVER REHAB STAY AT [facility], AND PT WOULD BE FINANCIALLY RESPONSIBLE. PT REQUESTS REFERRAL TO [facility]. REPORTS THAT SHE IS HOPEFUL THAT SHE CAN WORK OUT THE DETAILS. VERBALIZED UNDERSTANDING TO ALL INFORMATION. PT IS TEARFUL. EMOTIONAL SUPPORT PROVIDED. ALSO, VERBALIZED UNDERSTANDING THAT MEDICARE NORMALLY ONLY PAYS UP TO 48 HOURS OF OBSERVATION, AND THAT TIME ENDED AT 0443 TODAY. PT REQUESTS THAT DIRECTOR OF CUSTOMER ACQUISITION CALLS DAUGHTERLYNETTE TO EXPLAIN. Initialized on 05/10/19 11:32 - END OF NOTE Assessment/Plan (1) Hypoxemia Current Visit: Yes Status: Acute Assessment & Plan: check CXR. On pradaxa so less likely PE. Code(s): R09.02 - HYPOXEMIA (2) Left fibular fracture Current Visit: Yes Status: Acute Qualifiers: Encounter type: initial encounter Fibula location: distal Fracture type: closed Fracture morphology: unspecified fracture morphology Qualified Code(s ): S82.832A - Other fracture of upper and lower end of left fibula, initial encounter for closed fracture Assessment & Plan: states she is getting her cast changed today. Would certainly appreciate ortho clinic taking a look at her today. She is completely unable to care for herself at home. Await recommendations from discharge planning. Code(s): S82.402A - UNSP FRACTURE OF SHAFT OF LEFT FIBULA, INIT FOR CLOS FX (3) Metatarsal fracture Current Visit: Yes Status: Acute Qualifiers: Encounter type: subsequent encounter Metatarsal bone: third Fracture type : closed Fracture alignment: nondisplaced Laterality: left Fracture healing: with routine healing Qualified Code(s): S92.335D - Nondisplaced fracture of third metatarsal bone, left foot, subsequent encounter for fracture with routine healing (4) Pain of left heel Current Visit: Yes Status: Acute Code(s): M79.672 - PAIN IN LEFT FOOT (5) Frequent falls Current Visit: Yes Status: Acute Code(s): R29.6 - REPEATED FALLS (6) CKD (chronic kidney disease) Current Visit: No Status: Chronic Qualifiers: Chronic kidney disease stage: stage 2 (mild) Qualified Code(s): N18.2 - Chronic kidney disease, stage 2 (mild) Code(s): N18.9 - CHRONIC KIDNEY DISEASE, UNSPECIFIED (7) Weakness Current Visit: No Status: Chronic Code(s): R53.1 - WEAKNESS (8) Chronic obstructive lung disease Current Visit: No Status: Chronic Code(s): J44.9 - CHRONIC OBSTRUCTIVE PULMONARY DISEASE, UNSPECIFIED (9) Diabetes mellitus Current Visit: No Status: Chronic Qualifiers: Diabetes mellitus type: type 2 Diabetes mellitus long term care social worker insulin use: with care home use Diabetes mellitus complication status: with hyperglycemia Qualified Code(s): E11.65 - Type 2 diabetes mellitus with hyperglycemia; Z79.4 - terminal gauger (current) use of insulin Code(s): E11.9 - TYPE 2 DIABETES MELLITUS WITHOUT COMPLICATIONS (10) Essential hypertension Current Visit: No Status: Chronic Code(s): I10 - ESSENTIAL (PRIMARY) HYPERTENSION (11) Paroxysmal atrial fibrillation Current Visit: No Status: Chronic Code(s): I48.0 - PAROXYSMAL ATRIAL FIBRILLATION (12) Insomnia Current Visit: Yes Status: Acute Qualifiers: Insomnia type: primary Qualified Code(s): F51.01 - Primary insomnia Code(s): G47.00 - INSOMNIA, UNSPECIFIED (13) Hyperkalemia Current Visit: Yes Status: Acute Code(s): E87.5 - HYPERKALEMIA
[2019-05-11] MEDS: Imdur 30 MG PO SCH (09:22)
[2019-05-11] MEDS: Protonix 40MG Tablet PO SCH (09:23)
[2019-05-11] MEDS: Klor Con 10 MEQ PO SCH ×2 (09:23→21:32)
[2019-05-11] MEDS: Cozaar 50 MG PO SCH (09:23)
[2019-05-11] MEDS: DEMADEX 20 MG PO SCH ×2 (09:23→17:33)
[2019-05-11] MEDS: PRADAXA 75 MG PO SCH ×2 (09:23→21:31)
[2019-05-11] MEDS: Ocuvite Tablet PO SCH ×2 (09:24→21:32)
[2019-05-11] MEDS: Apresoline 25 MG TABLET PO SCH ×3 (09:24→20:47)
[2019-05-11] MEDS: ECOTRIN 81 MG PO SCH (09:24)
[2019-05-11] MEDS: Cordarone 200 MG PO SCH (09:24)
[2019-05-11] MEDS: ZOLOFT 50 MG TABLET PO SCH (09:24)
[2019-05-11] MEDS: COREG 12.5 MG PO SCH (09:24)
[2019-05-11] MEDS: Ranexa 500 MG PO SCH ×2 (09:24→21:32)
[2019-05-11] MEDS: Lyrica 50MG PO SCH ×2 (09:24→21:32)
[2019-05-11] MEDS: ZYLOPRIM 100 MG PO SCH ×2 (09:24→21:32)
--- NOTE | 2019-05-11 10:17 | XRAY ---
Indication: Hypoxia. Comparison: March 23, 2019. Portable chest demonstrates new right lung hazy interstitial alveolar opacities and worsening left mid lung subsegmental atelectasis/scarring. Remaining heart and lungs unremarkable with stable bony degenerative changes.
--- NOTE | 2019-05-11 10:21 | XRAY ---
Indication: Uncontrolled pain. Achilles tendon injury or fracture. Comparison: March 05, 2017. 3 views of the left ankle demonstrates new minimally displaced lateral malleolus oblique fracture and tiny nondisplaced distal tibia fracture anteriorly with overlying casting material. No obvious healing/bridging. Stable medial malleolus tip heterotopic ossifications, small heel spurs, and chronic Achilles tendon calcifications.
[2019-05-11] MEDS: ROCEPHIN 1 Gm-D5w 50 ml Bag** 1 G/50 ML IVPB IV SCH (13:26)
[2019-05-11] MEDS: Zithromax 500 MG/ 250 ML NaCl Premix 500 MG/250 ML IVPB IV SCH (14:15)
[2019-05-11] MEDS: Lantus Insulin SQ SCH (21:32)
[2019-05-12] MEDS: PERCOCET TABLET 5/325MG PO PRN ×4 (07:32→20:21)
[2019-05-12] MEDS: NovoLOG Insulin SQ SCH ×3 (07:46→17:07)
[2019-05-12] MEDS: Cordarone 200 MG PO SCH (09:29)
[2019-05-12] MEDS: Ranexa 500 MG PO SCH ×2 (09:29→20:13)
--- NOTE | 2019-05-12 09:29 | PCM.NOTE ---
Date and Time: 05/12/19925 Subjective Assessment: patient reports her breathing is stable, no new complaints. cough is mild Objective Exam General Appearance: no apparent distress, obese Neurologic Exam: alert, oriented x 3, cooperative Respiratory Exam: rhonchi Cardiovascular Exam: regular rate/rhythm, normal heart sounds Gastrointestinal/Abdomen Exam: soft, No tenderness, No mass Extremity Exam: other (left lower leg in posterior splint, cap refill and distal sensation intact) OBJECTIVE DATA Vital Signs: Vital Signs - 24 hr Temp Pulse Resp BP Pulse Ox 05/12/19 08:00 99.5 F 53 L 19 123/60 92 L 05/12/19 07:27 56 L 16 92 L 05/12/19 04:00 100.2 F 53 L 14 118/56 93 L 05/11/19 23:51 99.4 F 55 L 20 116/56 95 05/11/19 19:41 93 L 05/11/19 19:35 58 L 16 93 L 05/11/19 19:32 98.0 F 58 L 21 103/54 93 L 05/11/19 16:00 97.8 F 53 L 18 114/55 93 L 05/11/19 11:37 98.4 F 57 L 18 125/60 94 L Oxygen-Last 24 hours Oxygen Flowrate (L/min)-RT 9 Oxygen Flowrate (L/min)-RT 9 Pain Assessment - Last Documented Pain Intensity 5 Pain Scale Used 0-10 Pain Scale Intake and Output: Intake & Output 05/09/19 05/10/19 05/11/19 05/12/19 11:59 11:59 11:59 11:59 Intake Total 2771 9034 1146 3661 Output Total 1155 5981 3350 1999 Balance 8898 -556 -124 1661 Weight 114.7 kg 114.8 kg 115.8 kg 118.2 kg Lab Results: Accuchecks Date 05/12/19 Date 05/11/19 Time 07:39 Time 22:00 Accucheck Value: 85 Accucheck Value: 169 Accucheck Value: 114 Accucheck Value: 132 Radiology Exams: Radiology Procedures Category Date Time Status ANKLE (3 VIEWS) Stat Exams 05/11/19 10:00 Completed CHEST 1 VIEW (PORTABLE) Routine Exams 05/11/19 09:05 Completed Multi-Disciplinary Progress Notes: Multi-Disciplinary Progress Notes 05/11/19 16:41 Physical Therapy Note by Jennifer Montero PT. REPORTS L ANKLE PN AT 9/10. STATES SHE HAS BEEN ADVISED TO AVOID ICE UNTIL RX PLAN DETERMINED. TRANSFERRED W/ [facility] TODAY. THEY REPORTED INCREASED EASE OF TRANSFER. PT. PERFORMED R LE EX'S HEEL SLIDES, ANKLE PUMPS, SUPINE HIP ABD, QUAD/GLUTS SETS X 10 REPS. ALSO PERFORMED UE AROM WRIST PUMPS, ELBOW AND SHOULDER FLEXION. L ANLKE STILL SPLINTED. SIGNIFICANT EDEMA NOTED L FOOT WHERE IT CAN BE VISUALIZED. WILL PROGRESS TOLERATED. WOULD LIKE TO HAVE RX PLAN DETERMINED TO ADDRESS FX BEFORE INCREASING MOBILITY SIGNIFICANTLY. WILL CONT. P.T. PLAN IS TO D/C TO [facility] TO CONT. REHAB WHEN STABLE. JENNIFER MONTERO PT Initialized on 05/11/19 16:41 - END OF NOTE 05/11/19 13:45 Case Management Note by Jackie Sequeira COMPLETE AND FAXED TO [facility], ORIGINAL TO CHART Initialized on 05/11/19 13:45 - END OF NOTE 05/11/19 12:31 Pharmacy Note by Johnson Oseguera Please be aware of possible drug interaction with Zithromax and Cordarone. May prolong the QT interval. Initialized on 05/11/19 12:31 - END OF NOTE 05/11/19 11:54 Case Management Note by Radha Grullon PATIENT STILL IN AGREEMENT TO GO TO [facility] FOR REHAB UNTIL SAFE TO RETURN HOME. [facility] WAS FAXED PATIENT'S INPT FACESHEET THIS AM PER NIK. Initialized on 05/11/19 11:54 - END OF NOTE Assessment/Plan (1) Pneumonia Current Visit: Yes Status: Acute Assessment & Plan: continue rocephin/zithromax Code(s): J18.9 - PNEUMONIA, UNSPECIFIED ORGANISM (2) Left fibular fracture Current Visit: Yes Status: Acute Qualifiers: Encounter type: initial encounter Fibula location: distal Fracture type: closed Fracture morphology: unspecified fracture morphology Qualified Code(s ): S82.832A - Other fracture of upper and lower end of left fibula, initial encounter for closed fracture Assessment & Plan: appreciate ortho clinic input, reviewed by Dr Alvarenga, plan is for casting today Code(s): S82.402A - UNSP FRACTURE OF SHAFT OF LEFT FIBULA, INIT FOR CLOS FX (3) Metatarsal fracture Current Visit: Yes Status: Acute Qualifiers: Encounter type: subsequent encounter Metatarsal bone: third Fracture type : closed Fracture alignment: nondisplaced Laterality: left Fracture healing: with routine healing Qualified Code(s): S92.335D - Nondisplaced fracture of third metatarsal bone, left foot, subsequent encounter for fracture with routine healing (4) Frequent falls Current Visit: Yes Status: Acute Code(s): R29.6 - REPEATED FALLS (5) CKD (chronic kidney disease) Current Visit: No Status: Chronic Qualifiers: Chronic kidney disease stage: stage 2 (mild) Qualified Code(s): N18.2 - Chronic kidney disease, stage 2 (mild) Code(s): N18.9 - CHRONIC KIDNEY DISEASE, UNSPECIFIED (6) Chronic obstructive lung disease Current Visit: No Status: Chronic Code(s): J44.9 - CHRONIC OBSTRUCTIVE PULMONARY DISEASE, UNSPECIFIED (7) Diabetes mellitus Current Visit: No Status: Chronic Qualifiers: Diabetes mellitus type: type 2 Diabetes mellitus longterm insulin use: with longterm use Diabetes mellitus complication status: with hyperglycemia Qualified Code(s): E11.65 - Type 2 diabetes mellitus with hyperglycemia; Z79.4 - watermelon harvesting supervisor (current) use of insulin Code(s): E11.9 - TYPE 2 DIABETES MELLITUS WITHOUT COMPLICATIONS (8) Paroxysmal atrial fibrillation Current Visit: No Status: Chronic Code(s): I48.0 - PAROXYSMAL ATRIAL FIBRILLATION (9) Renal insufficiency Current Visit: No Status: Chronic
[2019-05-12] MEDS: ZYLOPRIM 100 MG PO SCH ×2 (09:30→20:13)
[2019-05-12] MEDS: ZOLOFT 50 MG TABLET PO SCH (09:30)
[2019-05-12] MEDS: Lyrica 50MG PO SCH ×2 (09:30→20:13)
[2019-05-12] MEDS: Ocuvite Tablet PO SCH ×2 (09:30→20:14)
[2019-05-12] MEDS: PRADAXA 75 MG PO SCH ×2 (09:30→20:12)
[2019-05-12] MEDS: ECOTRIN 81 MG PO SCH (09:30)
[2019-05-12] MEDS: Protonix 40MG Tablet PO SCH (09:30)
[2019-05-12] MEDS: DEMADEX 20 MG PO SCH ×2 (09:30→17:07)
[2019-05-12] MEDS: COREG 12.5 MG PO SCH (09:30)
[2019-05-12] MEDS: Klor Con 10 MEQ PO SCH ×3 (09:31→20:12)
[2019-05-12] MEDS: Imdur 30 MG PO SCH (09:35)
[2019-05-12] MEDS: Cozaar 50 MG PO SCH (09:36)
[2019-05-12] MEDS: Apresoline 25 MG TABLET PO SCH ×3 (09:36→20:12)
[2019-05-12] MEDS: Zithromax 500 MG/ 250 ML NaCl Premix 500 MG/250 ML IVPB IV SCH (09:44)
[2019-05-12] MEDS: ROCEPHIN 1 Gm-D5w 50 ml Bag** 1 G/50 ML IVPB IV SCH (12:27)
[2019-05-12] MEDS: TYLENOL 325 MG PO PRN (14:25)
[2019-05-12] MEDS: Lantus Insulin SQ SCH (20:14)
[2019-05-12] MEDS: Ativan 1 MG PO PRN (20:21)
[2019-05-13] MEDS: PERCOCET TABLET 5/325MG PO PRN (03:11)
[2019-05-13 04:37] LABS: Absolute Neutrophil Ct (ANC) 5.73 (1.4-6.9); BASOPHIL % 0.3 % (0.0-0.4); Basophil (Absolute #) 0.02 (0-0.4); Eosinophil % 0.4 % (0.00-5.0); Eosinophil (Absolute #) 0.03 (0-0.5); Hematocrit 32.7 % (35-47); Hemoglobin 10.3 gm/dl (12.0-16.0); Lymphocyte (Absolute #) 1.23 (1.0-4.6); Lymphocytes % 15.9 % (24.0-44.0); Mean Cell Volume 101.6 fl (78-100); Mean Corpuscular Hgb Concent. 31.5 g/dl (32-36); Mean Platelet Volume 11.6 fl (7.5-11.0); Monocyte (Absolute #) 0.72 (0.0-1.3); Monocytes % 9.3 % (0.0-12.0); Neutrophil % 74.1 % (36.0-66.0); Platelet Count 153 K/mm3 (150-450); Red Blood Count 3.22 M/mm3 (4.1-5.4); Red Cell Distribution Width 15.7 % (11.5-14.0); White Blood Count 7.7 K/mm3 (4.0-10.5)
[2019-05-13 04:47] LABS: ANION GAP 9.9 MEQ/L (5-15); BLOOD UREA NITROGEN 28 mg/dL (7-17); CHLORIDE 101 mmol/L (98-107); Calcium 8.6 mg/dL (8.4-10.2); Carbon Dioxide 34 mmol/L (22-30); Creatinine 1 0.81 mg/dL (0.52-1.04); Glucose 154 mg/dL (74-106); Potassium 4.1 mmol/L (3.5-5.1); SODIUM 141 mmol/L (137-145)
[2019-05-13] MEDS: NovoLOG Insulin SQ SCH ×3 (07:47→17:24)
--- NOTE | 2019-05-13 08:33 | PCM.NOTE ---
Date and Time: 05/13/19 0832 Subjective Assessment: patient more comfortable in cast, she feels tight with her breathing. minimal cough Objective Exam General Appearance: no apparent distress, obese Neurologic Exam: alert, oriented x 3 Respiratory Exam: prolonged expirations, crackles/rales Cardiovascular Exam: regular rate/rhythm, normal heart sounds Gastrointestinal/Abdomen Exam: soft, No tenderness, No mass Extremity Exam: other (left leg in cast) OBJECTIVE DATA Vital Signs: Vital Signs - 24 hr Temp Pulse Resp BP Pulse Ox 05/13/19 06:59 98.3 F 63 20 141/63 92 L 05/13/19 06:54 64 20 90 L 05/13/19 04:05 98.3 F 62 19 142/66 94 L 05/12/19 23:58 98.2 F 56 L 18 119/56 95 05/12/19 20:14 97.6 F 60 15 115/58 95 05/12/19 16:00 98.3 F 51 L 14 120/58 96 05/12/19 12:00 98.7 F 60 17 130/58 92 L Oxygen-Last 24 hours Oxygen Flowrate (L/min)-RT 40 Oxygen Flowrate (L/min)-RT 40 Oxygen Flowrate (L/min)-RT 40 Pain Assessment - Last Documented Pain Intensity 0 Pain Scale Used 0-10 Pain Scale Intake and Output: Intake & Output 05/10/19 05/11/19 05/12/19 05/13/19 11:59 11:59 11:59 11:59 Intake Total 2714 3936 3661 2400 Output Total 2901 4700 2000 3600 Balance -187 -764 1661 -1200 Weight 114.8 kg 115.8 kg 118.2 kg 119.4 kg Lab Results: Accuchecks Date 05/12/19 Date 05/12/19 Time 17:07 Time 14:08 Accucheck Value: 184 Accucheck Value: 174 Accucheck Value: 180 Lab Results-Last 24 Hours 05/13/19 05/13/19 Range/Units 04:25 04:25 WBC 7.7 (4.0-10.5) K/mm3 RBC 3.22 L (4.1-5.4) M/mm3 Hgb 10.3 L (12.0-16.0) gm/dl Hct 32.7 L (35-47) % MCV 101.6 H (78-100) fl MCH 32.0 (26-32) pg MCHC 31.5 L (32-36) g/dl RDW 15.7 H (11.5-14.0) % Plt Count 153 (150-450) K/mm3 MPV 11.6 H (7.5-11.0) fl Gran % 74.1 H (36.0-66.0) % Eos # (Auto) 0.03 (0-0.5) Absolute Lymphs (auto) 1.23 (1.0-4.6) Absolute Monos (auto) 0.72 (0.0-1.3) Lymphocytes % 15.9 L (24.0-44.0) % Monocytes % 9.3 (0.0-12.0) % Eosinophils % 0.4 (0.00-5.0) % Basophils % 0.3 (0.0-0.4) % Absolute Granulocytes 5.73 (1.4-6.9) Basophils # 0.02 (0-0.4) Sodium 141 (137-145) mmol/L Potassium 4.1 (3.5-5.1) mmol/L Chloride 101 (98-107) mmol/L Carbon Dioxide 34 H (22-30) mmol/L Anion Gap 9.9 (5-15) MEQ/L BUN 28 H (7-17) mg/dL Creatinine 0.81 (0.52-1.04) mg/dL Estimated GFR > 60.0 ML/MIN Glucose 154 H (74-106) mg/dL Calcium 8.6 (8.4-10.2) mg/dL Radiology Exams: Radiology Procedures Category Date Time Status ANKLE (3 VIEWS) Stat Exams 05/11/19 10:00 Completed CHEST 1 VIEW (PORTABLE) Routine Exams 05/11/19 09:05 Completed Multi-Disciplinary Progress Notes: Multi-Disciplinary Progress Notes 05/12/19 15:12 Respiratory Note by Tracy Lyons pt spo2 94% hiflow 50%- 40l Initialized on 05/12/19 15:12 - END OF NOTE 05/12/19 13:35 Physical Therapy Note by Jennifer Montero PT. HAS CAST ON L LL TO ADDRESS FXS. REPORTS DECREASED PN SINCE CAST HAS BEEN PLACED. IS ON 15L O2 PER OXIMIZER D/T POOR O2 SATS SECONDARY TO PNEUMONIA. PERFORMED LE EX'S IN BED R LE HEEL SLIDES, QUAD/GLUT SETS, ANKLE PUMPS. QUAD AND GLUT SETS L LE. PT. PERFORMED AROM EX'S BILATERAL UES WELL. STATES SHE WAS ABLE TO TRANSFER TO BEDSIDE COMMODE W/ ASSIST OF NSG AND ROLLER WALKER. PT. IS TO CONT. W/ NWB STATUS. WILL CONT. TO PROGRESS TRANSFERS CARDIOPULMONARY STATUS IMPROVES. JENNIFER MONTERO, PT Initialized on 05/12/19 13:35 - END OF NOTE 05/12/19 10:15 Respiratory Note by Tracy Lyons U/A TO KEEP SPO2 ABOVE LOW 80S WITH 15LPM OXYMASK. PLACED ON HIFLOW 50% AND 40 L , SPO2 INC TO 95%. DR GALLOWAY NOTIFIED, WILL WEAN TOLERATED. Initialized on 05/12/19 10:15 - END OF NOTE 05/12/19 10:03 Case Management Note by Radha Grullon NO CHANGE IN DC PLANS AT THIS TIME Initialized on 05/12/19 10:03 - END OF NOTE 05/12/19 09:38 Respiratory Note by Tracy Lyons SPO2 ON N/C 5LPM IN THE 80S. PLACED ON 10LPM OXYMASK Initialized on 05/12/19 09:38 - END OF NOTE 05/12/19 09:37 RT Documentation Review by Tracy Lyons RT Interventions/Assessments/Treatments Oxygen Nasal Cannula 2 lpm Start: 05/08/19 07: 48 Freq: Status: Active Protocol: Document 05/11/19 21:59 DP (Rec: 05/11/19 21:59 DP [id number]) Oxygen Therapy RT Supplies O2 Tubing Document 05/12/19 07:27 TW (Rec: 05/12/19 07:31 TW [id number]) Oxygen Therapy Oxygen per day Yes O2 Delivery BiPap/CPAP Oxygen Flow Rate (L/min) 10 Respiratory Therapy Assessment-RT Start: 05/08/19 07: 47 Text: Status: Active Freq: DAILY Protocol: Document 05/12/19 07:27 TW (Rec: 05/12/19 07:31 TW [id number]) Respiratory Assessment RT Evaluation Re-Evaluation Date 05/12/19 Time 07:25 Diagnosis TIB FIB FRACTURE Pulmonary History COPD CHF ALFRED Home Respiratory Medications and Oxygen PRN DUONEBS O2 HS Indications for O2 Therapy Home Usage Oxygen Saturation (95-100) 92 O2 Delivery BiPap/CPAP Oxygen Flow Rate (L/min) 10 Resting Yes Pulse Rate (60-90 beats/min) 56 Respiratory Rate (12-24 breaths/min) 16 Respiratory Effort Easy Bronchodilator Indications Diagnosis of COPD Home Bronchodilator Use Anterior/Posterior Breath Sounds Diminished Respiratory Symptoms No Difficulties Cough Description None Mental Status Alert Last Chest X-Ray Results Portable chest demonstrates new right lung hazy interstitial alveolar opacities and worsening left mid lung subsegmental atelectasis/scarring. Remaining heart and lungs unremarkable with stable bony degenerative changes. Respiratory Symptoms No Difficulties Continue Therapy as Ordered Yes Change Therapy To: NO PRN TX NEEDED Goals COPD Maintenance Improve Alveolar Oxygenation Prevent/Improve Atelectasis Keep Oxygenation > 92% Will Reassess Daily Respiratory Assessments/Treatments reviewed by Tracy Lyons on 05/12/19 at 0937. Initialized on 05/12/19 09:37 - END OF NOTE Assessment/Plan (1) Pneumonia Current Visit: Yes Status: Acute Assessment & Plan: on rocephin/zithromax, add solu medrol for mild copd exacerbation. continues to require high flow, will consult pulm as she follows with Dr Leal Code(s): J18.9 - PNEUMONIA, UNSPECIFIED ORGANISM (2) Left fibular fracture Current Visit: Yes Status: Acute Qualifiers: Encounter type: initial encounter Fibula location: distal Fracture type: closed Fracture morphology: unspecified fracture morphology Qualified Code(s ): S82.832A - Other fracture of upper and lower end of left fibula, initial encounter for closed fracture Code(s): S82.402A - UNSP FRACTURE OF SHAFT OF LEFT FIBULA, INIT FOR CLOS FX (3) Metatarsal fracture Current Visit: Yes Status: Acute Qualifiers: Encounter type: subsequent encounter Metatarsal bone: third Fracture type : closed Fracture alignment: nondisplaced Laterality: left Fracture healing: with routine healing Qualified Code(s): S92.335D - Nondisplaced fracture of third metatarsal bone, left foot, subsequent encounter for fracture with routine healing (4) Frequent falls Current Visit: Yes Status: Acute Code(s): R29.6 - REPEATED FALLS (5) CKD (chronic kidney disease) Current Visit: No Status: Chronic Qualifiers: Chronic kidney disease stage: stage 2 (mild) Qualified Code(s): N18.2 - Chronic kidney disease, stage 2 (mild) Code(s): N18.9 - CHRONIC KIDNEY DISEASE, UNSPECIFIED (6) Chronic obstructive lung disease Current Visit: No Status: Chronic Code(s): J44.9 - CHRONIC OBSTRUCTIVE PULMONARY DISEASE, UNSPECIFIED (7) Diabetes mellitus Current Visit: No Status: Chronic Qualifiers: Diabetes mellitus type: type 2 Diabetes mellitus intermediate teacher insulin use: with jail use Diabetes mellitus complication status: with hyperglycemia Qualified Code(s): E11.65 - Type 2 diabetes mellitus with hyperglycemia; Z79.4 - halfway (current) use of insulin Code(s): E11.9 - TYPE 2 DIABETES MELLITUS WITHOUT COMPLICATIONS (8) Paroxysmal atrial fibrillation Current Visit: No Status: Chronic Code(s): I48.0 - PAROXYSMAL ATRIAL FIBRILLATION (9) Renal insufficiency Current Visit: No Status: Chronic
[2019-05-13] MEDS: Zithromax 500 MG/ 250 ML NaCl Premix 500 MG/250 ML IVPB IV SCH (09:35)
[2019-05-13] MEDS: Ranexa 500 MG PO SCH ×2 (09:40→21:47)
[2019-05-13] MEDS: Klor Con 10 MEQ PO SCH ×2 (09:41→21:47)
[2019-05-13] MEDS: DEMADEX 20 MG PO SCH ×2 (09:42→17:25)
[2019-05-13] MEDS: PRADAXA 75 MG PO SCH ×2 (09:42→21:46)
[2019-05-13] MEDS: Apresoline 25 MG TABLET PO SCH ×3 (09:44→21:46)
[2019-05-13] MEDS: Imdur 30 MG PO SCH (09:44)
[2019-05-13] MEDS: COREG 12.5 MG PO SCH (09:44)
[2019-05-13] MEDS: Protonix 40MG Tablet PO SCH (09:44)
[2019-05-13] MEDS: ZYLOPRIM 100 MG PO SCH ×2 (09:44→21:46)
[2019-05-13] MEDS: Lyrica 50MG PO SCH ×2 (09:44→21:47)
[2019-05-13] MEDS: Ocuvite Tablet PO SCH ×2 (09:44→21:47)
[2019-05-13] MEDS: ECOTRIN 81 MG PO SCH (09:45)
[2019-05-13] MEDS: ZOLOFT 50 MG TABLET PO SCH (09:45)
[2019-05-13] MEDS: Cordarone 200 MG PO SCH (09:45)
[2019-05-13] MEDS: Cozaar 50 MG PO SCH (09:45)
[2019-05-13] MEDS: solu-MEDROL 125 MG IV SCH ×2 (09:49→17:22)
[2019-05-13] MEDS: Colace 100 MG PO PRN (10:39)
[2019-05-13] MEDS: TYLENOL 325 MG PO PRN (10:57)
--- NOTE | 2019-05-13 13:02 | CONS ---
CONSULT DATE: 05/13/2019 HISTORY: Mary Kay Virgen is a 69 year-old woman with history of chronic obstructive pulmonary disease and obstructive sleep apnea, who had been hospitalized after sustaining a fall with left ankle/foot injury. The patient had the foot placed in a cast. She has been treated by medical floor where she required incremental increase in supplemental oxygen. The patient reports that her effort tolerance is about half a mile. She is on oxygen only at night along with CPAP at 14 cm of water. In addition, she has chronic obstructive pulmonary disease but does not take any routine bronchodilator at home. Her chest x-ray performed had shown subsegmental atelectasis involving left upper lobe along with congestive changes. The patient is on Pradaxa for atrial fibrillation which has been continued post-procedure likely reducing the risk of deep venous thrombosis and pulmonary embolism. PAST MEDICAL HISTORY: Besides chronic obstructive pulmonary disease and obstructive sleep apnea, the patient has history of atrial fibrillation, hypertension, gout, diabetes mellitus and obesity. PAST SURGICAL HISTORY: As above. PERSONAL AND SOCIAL HISTORY: She is a former smoker but quit smoking several years ago. MEDICATIONS: Home and current medications are reviewed. ALLERGIES: ALLERGIES NOTED. PHYSICAL EXAMINATION: This is an elderly woman who appears comfortable, able to speak without any respiratory difficulty. Vital signs noted. HEENT: Normocephalic. Oral exam is limited. Oropharynx is small. NECK: Neck is short. CVS: First and second heart sounds are noted to be normal, regular, rhythmic. RESPIRATORY: Shows diminished breath sounds, scattered rhonchi and crackles are heard. ABDOMEN: Obese. EXTREMITIES: Left lower extremity is in a cast. LABORATORY DATA AND TESTS: Sodium 131, potassium 4.1, chloride 101, bicarb 34, glucose 154, BUN 28, creatinine 0.8. White blood cell count 7.7, hemoglobin 10.2, hematocrit 32.7, PLT 153,000. Chest x-ray noted. A1C 6.7. ASSESSMENT: This is a 69 year old woman admitted with: 1) Acute on chronic hypoxic respiratory failure which appears to be a combination of congestive changes, subsegmental atelectasis and a possibility of thromboembolism cannot be excluded although appears less likely given the patient has continued on Pradaxa. 2) Underlying chronic obstructive pulmonary disease with mild exacerbation. 3) Congestive cardiac failure. 4) Chronic atrial fibrillation. 5) Hypertension. 6) Diabetes mellitus. 7) Obesity. RECOMMENDATIONS: 1) I agree with current treatment. 2) Continue high flow oxygen along with noninvasive ventilation as needed/tolerated. 3) I agree with steroids, may reduce the dose as clinical bronchospasm improves. 4) Bumex 1 mg IV daily today and tomorrow. 5) Repeat labs and x-ray tomorrow. 6) Continue Pradaxa. 7) If D-dimer is positive will recommend at least a venous Doppler of left lower extremity to rule out any clot. 8) Further recommendations pending clinical improvement. I explained this plan of care to patient. Thank you for allowing me to participate in the care of Miss Virgen.
[2019-05-13] MEDS: ROCEPHIN 1 Gm-D5w 50 ml Bag** 1 G/50 ML IVPB IV SCH (13:30)
[2019-05-13] MEDS: BUMEX 1 MG IV SCH (13:30)
[2019-05-13] MEDS ORDERED: PERCOCET TABLET 5/325MG PO PRN (13:40)
--- NOTE | 2019-05-13 14:20 | XRAY ---
Indication: Elevated d-dimer. Left lower leg cast. Two-dimensional sonogram and color Doppler imaging of the major venous vessels of left and right leg was performed. Comparison: December 01, 2018. Lower leg venous vessels not evaluated due to new overlying cast. Otherwise there is again no thrombus seen in the examined deep venous vessels of the left and right leg including greater saphenous vein. Veins demonstrated normal compressibility. Venous waveforms are normal with and without augmentation. Impression: 1. Left lower leg veins not evaluated. 2. Remaining left and right legs again negative for DVT.
[2019-05-13] MEDS ORDERED: PERCOCET TABLET 5/325MG PO ONE (16:56)
[2019-05-13] MEDS: OXYCODONE-ACETAMINOPHEN 10-325 PO PRN ×2 (17:25→21:56)
[2019-05-13] MEDS: Lantus Insulin SQ SCH (21:47)
[2019-05-13] MEDS: Ativan 1 MG PO PRN (21:56)
[2019-05-14] MEDS: solu-MEDROL 125 MG IV SCH ×3 (02:06→17:32)
[2019-05-14] MEDS: OXYCODONE-ACETAMINOPHEN 10-325 PO PRN (03:20)
[2019-05-14 05:08] LABS: BASOPHIL % 0.2 % (0.0-0.4); Basophil (Absolute #) 0.01 (0-0.4); Eosinophil (Absolute #) 0 (0-0.5); Hematocrit 31.9 % (35-47); Hemoglobin 10.2 gm/dl (12.0-16.0); Lymphocyte (Absolute #) 0.69 (1.0-4.6); Lymphocytes % 11.7 % (24.0-44.0); Mean Cell Volume 99.7 fl (78-100); Mean Corpuscular Hemoglobin 31.9 pg (26-32); Mean Platelet Volume 12.2 fl (7.5-11.0); Monocytes % 1.7 % (0.0-12.0); Neutrophil % 86.4 % (36.0-66.0); Platelet Count 175 K/mm3 (150-450); Red Cell Distribution Width 15.2 % (11.5-14.0); White Blood Count 5.9 K/mm3 (4.0-10.5)
[2019-05-14 05:17] LABS: ANION GAP 11.4 MEQ/L (5-15); BLOOD UREA NITROGEN 36 mg/dL (7-17); CHLORIDE 98 mmol/L (98-107); Calcium 8.8 mg/dL (8.4-10.2); Carbon Dioxide 35 mmol/L (22-30); Creatinine 1 0.88 mg/dL (0.52-1.04); Glucose 236 mg/dL (74-106); NT PRO BNP 2130 pg/mL (0-900); Potassium 4.3 mmol/L (3.5-5.1); SODIUM 140 mmol/L (137-145)
[2019-05-14] MEDS: NovoLOG Insulin SQ SCH ×3 (08:49→17:32)
--- NOTE | 2019-05-14 08:50 | PCM.NOTE ---
Date and Time: 05/14/19 0845 Subjective Assessment: patient reports some improvement in her breathing, she is frustrated with high flow cannula not staying in. otherwise her pain is controlled Objective Exam General Appearance: no apparent distress, obese Neurologic Exam: alert, oriented x 3 Respiratory Exam: crackles/rales Cardiovascular Exam: regular rate/rhythm, normal heart sounds Gastrointestinal/Abdomen Exam: soft, No tenderness, No mass Extremity Exam: other (LLE in cast) OBJECTIVE DATA Vital Signs: Vital Signs - 24 hr Temp Pulse Resp BP Pulse Ox 05/14/19 07:47 98.2 F 64 16 124/57 91 L 05/14/19 06:52 64 16 91 L 05/14/19 04:00 97.4 F 63 15 138/63 93 L 05/14/19 00:12 98.1 F 63 20 119/56 95 05/13/19 20:05 61 20 94 L 05/13/19 20:00 98.2 F 64 24 123/57 94 L 05/13/19 16:00 97.9 F 64 21 127/60 95 05/13/19 14:55 90 L 05/13/19 12:00 98.3 F 58 L 22 124/57 90 L 05/13/19 11:04 91 L Oxygen-Last 24 hours Oxygen Flowrate (L/min)-RT 40 Oxygen Flowrate (L/min)-RT 40 Oxygen Flowrate (L/min)-RT 40 Oxygen Flowrate (L/min)-RT 40 Pain Assessment - Last Documented Pain Intensity 6 Pain Scale Used [facility] Intake and Output: Intake & Output 05/11/19 05/12/19 05/13/19 05/14/19 11:59 11:59 11:59 11:59 Intake Total 3936 3661 2640 1389 Output Total 4700 2000 4250 3950 Balance -764 1839 -7066 -5633 Weight 115.8 kg 118.2 kg 119.4 kg 118.8 kg Lab Results: Accuchecks Date 05/13/19 Date 05/13/19 Date 05/13/19 Time 16:30 Time 11:30 Accucheck Value: 307 Accucheck Value: 237 Accucheck Value: 132 Lab Results-Last 24 Hours 05/13/19 05/14/19 05/14/19 Range/Units 05:00 04:46 04:46 WBC 5.9 (4.0-10.5) K/mm3 RBC 3.20 L (4.1-5.4) M/mm3 Hgb 10.2 L (12.0-16.0) gm/dl Hct 31.9 L (35-47) % MCV 99.7 (78-100) fl MCH 31.9 (26-32) pg MCHC 32.0 (32-36) g/dl RDW 15.2 H (11.5-14.0) % Plt Count 175 (150-450) K/mm3 MPV 12.2 H (7.5-11.0) fl Gran % 86.4 H (36.0-66.0) % Eos # (Auto) 0 (0-0.5) Absolute Lymphs (auto) 0.69 L (1.0-4.6) Absolute Monos (auto) 0.10 (0.0-1.3) Lymphocytes % 11.7 L (24.0-44.0) % Monocytes % 1.7 (0.0-12.0) % Eosinophils % 0.0 (0.00-5.0) % Basophils % 0.2 (0.0-0.4) % Absolute Granulocytes 5.10 (1.4-6.9) Basophils # 0.01 (0-0.4) D-Dimer 926 H* (215-500) ng/mL Sodium 140 (137-145) mmol/L Potassium 4.3 (3.5-5.1) mmol/L Chloride 98 (98-107) mmol/L Carbon Dioxide 35 H (22-30) mmol/L Anion Gap 11.4 (5-15) MEQ/L BUN 36 H (7-17) mg/dL Creatinine 0.88 (0.52-1.04) mg/dL Estimated GFR > 60.0 ML/MIN Glucose 236 H (74-106) mg/dL Calcium 8.8 (8.4-10.2) mg/dL NT-Pro-B Natriuret Pep 2130 H (0-900) pg/mL Radiology Exams: Radiology Procedures Category Date Time Status CHEST 1 VIEW (PORTABLE) Routine Exams 05/14/19 08:00 Taken VENOUS BILATERAL EXTREMITY [US] Routine Exams 05/13/19 14:08 Completed Multi-Disciplinary Progress Notes: Multi-Disciplinary Progress Notes 05/13/19 21:58 Respiratory Note by Svetlana Negro REPLACED PATIENTS HUMIDITY ON HER HEATED HIGH FLOW NASAL CANNULA. EVERYTHING WAS WORKING PROPERLY AFTER PLACEMENT. Initialized on 05/13/19 21:58 - END OF NOTE 05/13/19 15:58 Physical Therapy Note by Jennifer Petty PT. WAS SEEN TO WORK ON COMMODE TO BED TRANSFER. PT. REQUIRED MOD - MAX ASSIST X 2 FOR SIT TO STAND. CONT. TO EMPHASIZE MAINTAINING NWB L LE. PT. CONT. ON HIGH FLOW O2 D/T DIFFICULTY MAINTAINING O2 SATS SO IT IS HARD TO PROGRESS REHAB WITHOUT SUFFICIENT CARDIOPULMONARY SUPPORT. WILL CONT. TO PROGRESS TOLERATED. JENNIFER PETTY PT Initialized on 05/13/19 15:58 - END OF NOTE 05/13/19 11:49 Physical Therapy Note by Jennifer Petty HELD P.T. THIS AM PT. HAVING INCREASED DYSPNEA AND LOW O2 SATS AT TIMES DESPITE BEING ON OXIMIZER. NSG HAD TRANSFERRED TO CHAIR. APPLIED CP AND ELEVATED L LE. WILL ASSIST W/ TRANSFER BACK TO BED THIS PM IF AVAILABLE. JENNIFER PETTY PT Initialized on 05/13/19 11:49 - END OF NOTE 05/13/19 10:04 Case Management Note by Radha Grullon S/W PATIENT- NO CHANGE IN DC PLANS AT THIS TIME. PATIENT CONTINUES TO PLAN TO GO TO [facility] AT TIME OF DISCHARGE FOR REHAB. S/W LILIAN AT [facility]- SHE WAS UPDATED ON PATIENT'S STATUS. THEY ARE READY FOR PATIENT WHEN PATIENT IS MEDICALLY READY FOR DISCHARGE. Initialized on 05/13/19 10:04 - END OF NOTE Assessment/Plan (1) Pneumonia Current Visit: Yes Status: Acute Assessment & Plan: continue rocephin/zithromax. appreciate pulm input, seems to be diuresing as well. Code(s): J18.9 - PNEUMONIA, UNSPECIFIED ORGANISM (2) Left fibular fracture Current Visit: Yes Status: Acute Qualifiers: Encounter type: initial encounter Fibula location: distal Fracture type: closed Fracture morphology: unspecified fracture morphology Qualified Code(s ): S82.832A - Other fracture of upper and lower end of left fibula, initial encounter for closed fracture Assessment & Plan: in cast, on pradaxa Code(s): S82.402A - UNSP FRACTURE OF SHAFT OF LEFT FIBULA, INIT FOR CLOS FX (3) Metatarsal fracture Current Visit: Yes Status: Acute Qualifiers: Encounter type: subsequent encounter Metatarsal bone: third Fracture type : closed Fracture alignment: nondisplaced Laterality: left Fracture healing: with routine healing Qualified Code(s): S92.335D - Nondisplaced fracture of third metatarsal bone, left foot, subsequent encounter for fracture with routine healing (4) Frequent falls Current Visit: Yes Status: Acute Code(s): R29.6 - REPEATED FALLS (5) CKD (chronic kidney disease) Current Visit: No Status: Chronic Qualifiers: Chronic kidney disease stage: stage 2 (mild) Qualified Code(s): N18.2 - Chronic kidney disease, stage 2 (mild) Code(s): N18.9 - CHRONIC KIDNEY DISEASE, UNSPECIFIED (6) Chronic obstructive lung disease Current Visit: No Status: Chronic Code(s): J44.9 - CHRONIC OBSTRUCTIVE PULMONARY DISEASE, UNSPECIFIED (7) Diabetes mellitus Current Visit: No Status: Chronic Qualifiers: Diabetes mellitus type: type 2 Diabetes mellitus chcf insulin use: with assembly machine tender use Diabetes mellitus complication status: with hyperglycemia Qualified Code(s): E11.65 - Type 2 diabetes mellitus with hyperglycemia; Z79.4 - recycling specialist (current) use of insulin Code(s): E11.9 - TYPE 2 DIABETES MELLITUS WITHOUT COMPLICATIONS (8) Paroxysmal atrial fibrillation Current Visit: No Status: Chronic Code(s): I48.0 - PAROXYSMAL ATRIAL FIBRILLATION (9) Renal insufficiency Current Visit: No Status: Chronic
[2019-05-14] MEDS: Apresoline 25 MG TABLET PO SCH ×3 (08:53→21:13)
[2019-05-14] MEDS: BUMEX 1 MG IV SCH (08:54)
[2019-05-14] MEDS: Klor Con 10 MEQ PO SCH ×2 (08:55→21:13)
[2019-05-14] MEDS: Ranexa 500 MG PO SCH ×2 (08:56→21:13)
[2019-05-14] MEDS: DEMADEX 20 MG PO SCH ×2 (08:56→17:32)
[2019-05-14] MEDS: ZOLOFT 50 MG TABLET PO SCH (08:57)
[2019-05-14] MEDS: PRADAXA 75 MG PO SCH ×2 (08:57→21:12)
[2019-05-14] MEDS: ECOTRIN 81 MG PO SCH (08:57)
[2019-05-14] MEDS: Protonix 40MG Tablet PO SCH (08:57)
[2019-05-14] MEDS: ZYLOPRIM 100 MG PO SCH ×2 (08:58→21:13)
[2019-05-14] MEDS: Ocuvite Tablet PO SCH ×2 (08:58→21:13)
[2019-05-14] MEDS: Cordarone 200 MG PO SCH (08:58)
[2019-05-14] MEDS: COREG 12.5 MG PO SCH (08:58)
[2019-05-14] MEDS: Lyrica 50MG PO SCH ×2 (08:58→21:13)
[2019-05-14] MEDS: Cozaar 50 MG PO SCH (08:58)
[2019-05-14] MEDS: Imdur 30 MG PO SCH (08:58)
[2019-05-14] MEDS: Zithromax 500 MG/ 250 ML NaCl Premix 500 MG/250 ML IVPB IV SCH (09:02)
--- NOTE | 2019-05-14 09:28 | XRAY ---
Indication: Desaturation. Comparison: May 11, 2019. Portable chest limited due to numerous overlying monitoring leads/device more than before. Grossly stable left mid to lower lung subsegmental atelectasis/scarring. Heart is not enlarged for AP portable technique. No gross new/acute cardiopulmonary abnormalities.
[2019-05-14] MEDS: ROCEPHIN 1 Gm-D5w 50 ml Bag** 1 G/50 ML IVPB IV SCH (13:55)
[2019-05-14] MEDS: Colace 100 MG PO PRN (15:41)
[2019-05-14] MEDS: Lantus Insulin SQ SCH (21:13)
[2019-05-15] MEDS: solu-MEDROL 125 MG IV SCH ×3 (00:05→17:46)
[2019-05-15] MEDS ORDERED: CITROMA 296 ML PO ONE (08:45)
--- NOTE | 2019-05-15 08:49 | PCM.NOTE ---
Date and Time: 05/15/19 0846 Subjective Assessment: pt up to bedside this am, high flow oxygen is being weaned. her breathing is improving, she complains of constipation Objective Exam General Appearance: no apparent distress, obese Neurologic Exam: alert, oriented x 3 Respiratory Exam: crackles/rales, No respiratory distress Cardiovascular Exam: regular rate/rhythm, normal heart sounds Gastrointestinal/Abdomen Exam: soft, No tenderness, No mass Extremity Exam: other (LLE casted) OBJECTIVE DATA Vital Signs: Vital Signs - 24 hr Temp Pulse Resp BP Pulse Ox 05/15/19 08:10 66 18 91 L 05/15/19 07:15 97.4 F 61 18 131/64 94 L 05/15/19 04:00 97.5 F 64 18 152/67 93 L 05/15/19 02:55 92 L 05/14/19 23:51 97.7 F 60 17 152/67 92 L 05/14/19 20:00 97.8 F 55 L 14 130/60 95 05/14/19 18:50 90 L 05/14/19 17:49 95 05/14/19 16:00 97.3 F 66 13 122/57 95 05/14/19 14:33 96 05/14/19 12:00 98.0 F 56 L 14 115/57 93 L 05/14/19 10:12 92 L Oxygen-Last 24 hours Oxygen Flowrate (L/min)-RT 40 Oxygen Flowrate (L/min)-RT 40 Oxygen Flowrate (L/min)-RT 40 Oxygen Flowrate (L/min)-RT 40 Oxygen Flowrate (L/min)-RT 40 Pain Assessment - Last Documented Pain Intensity 0 [facility] Scale [facility] Intake and Output: Intake & Output 05/12/19 05/13/19 05/14/19 05/15/19 11:59 11:59 11:59 11:59 Intake Total 2097 6540 1740 840 Output Total 1999 7678 0450 1999 Balance 3551 -5563 -1277 -0404 Weight 118.2 kg 119.4 kg 118.8 kg 118.3 kg Lab Results: Accuchecks Date 05/14/19 Date 05/14/19 Date 05/14/19 Date 05/14/19 Time 20:50 Time 20:50 Time 17:59 Time 11:30 Accucheck Value: 297 Accucheck Value: 297 Accucheck Value: 321 Accucheck Value: 264 Radiology Exams: Radiology Procedures Category Date Time Status CHEST 1 VIEW (PORTABLE) Routine Exams 05/14/19 08:00 Completed VENOUS BILATERAL EXTREMITY [US] Routine Exams 05/13/19 14:08 Completed Multi-Disciplinary Progress Notes: Multi-Disciplinary Progress Notes 05/14/19 16:38 Physical Therapy Note by Jennifer Petty PT. REPORTS L ANKLE PN AT 7/10. STILL ON HIGH FLOW O2 BUT REPORTS THAT RT WAS ABLE TO REDUCE AMOUNT OF O2. PT. DID NOT WANT TO SIT IN CHAIR THIS PM SHE HAD JUST BEEN TO COMMODE. PERFORMED SUPINE TO SIT W/ MIN ASSIST W/ USE OF BED RAIL. SIT TO SUPINE MOD ASSIST FOR L LE. ABLE TO SIT ON SIDE OF BED X 5 MINS+ PERFORMED LE EX'S IN SITTING AND MAINTAINED SITTING BALANCE. O2 SATS WERE 96-97 % W/ HIGH FLOW O2 W/ ABOVE ACTIVITY. NSG TO PERFORM MOBILITY OVER THE WEEKEND. WILL CONT. P.T. DURING STAY. JENNIFER PETTY PT Initialized on 05/14/19 16:38 - END OF NOTE 05/14/19 12:59 Case Management Note by Radha Grullon PATIENT STILL IN AGREEMENT TO GO TO [facility] AT TIME OF DCShaneka ZARAGOZA S/W [facility] AND UPDATED THEM ON PATIENT'S CURRENT STATUS. THEY ARE READY FOR PATIENT AT TIME OF DISCHARGE. Initialized on 05/14/19 12:59 - END OF NOTE Assessment/Plan (1) CHF (congestive heart failure) Current Visit: Yes Status: Acute Assessment & Plan: improving, increase bumex to 1mg bid IV Code(s): I50.9 - HEART FAILURE, UNSPECIFIED (2) Pneumonia Current Visit: Yes Status: Acute Assessment & Plan: continue rocephin/zithromax Code(s): J18.9 - PNEUMONIA, UNSPECIFIED ORGANISM (3) Left fibular fracture Current Visit: Yes Status: Acute Qualifiers: Encounter type: initial encounter Fibula location: distal Fracture type: closed Fracture morphology: unspecified fracture morphology Qualified Code(s ): S82.832A - Other fracture of upper and lower end of left fibula, initial encounter for closed fracture Code(s): S82.402A - UNSP FRACTURE OF SHAFT OF LEFT FIBULA, INIT FOR CLOS FX (4) Metatarsal fracture Current Visit: Yes Status: Acute Qualifiers: Encounter type: subsequent encounter Metatarsal bone: third Fracture type : closed Fracture alignment: nondisplaced Laterality: left Fracture healing: with routine healing Qualified Code(s): S92.335D - Nondisplaced fracture of third metatarsal bone, left foot, subsequent encounter for fracture with routine healing (5) Frequent falls Current Visit: Yes Status: Acute Code(s): R29.6 - REPEATED FALLS (6) CKD (chronic kidney disease) Current Visit: No Status: Chronic Qualifiers: Chronic kidney disease stage: stage 2 (mild) Qualified Code(s): N18.2 - Chronic kidney disease, stage 2 (mild) Code(s): N18.9 - CHRONIC KIDNEY DISEASE, UNSPECIFIED (7) Chronic obstructive lung disease Current Visit: No Status: Chronic Code(s): J44.9 - CHRONIC OBSTRUCTIVE PULMONARY DISEASE, UNSPECIFIED (8) Diabetes mellitus Current Visit: No Status: Chronic Qualifiers: Diabetes mellitus type: type 2 Diabetes mellitus nursing home insulin use: with nursing home use Diabetes mellitus complication status: with hyperglycemia Qualified Code(s): E11.65 - Type 2 diabetes mellitus with hyperglycemia; Z79.4 - shelter (current) use of insulin Code(s): E11.9 - TYPE 2 DIABETES MELLITUS WITHOUT COMPLICATIONS (9) Paroxysmal atrial fibrillation Current Visit: No Status: Chronic Code(s): I48.0 - PAROXYSMAL ATRIAL FIBRILLATION (10) Renal insufficiency Current Visit: No Status: Chronic
[2019-05-15] MEDS: NovoLOG Insulin SQ SCH ×3 (09:06→17:47)
[2019-05-15] MEDS: BUMEX 1 MG IV SCH ×3 (09:36→21:26)
[2019-05-15] MEDS: Zithromax 500 MG/ 250 ML NaCl Premix 500 MG/250 ML IVPB IV SCH (10:00)
[2019-05-15] MEDS: ECOTRIN 81 MG PO SCH (10:05)
[2019-05-15] MEDS: ZYLOPRIM 100 MG PO SCH ×2 (10:05→21:04)
[2019-05-15] MEDS: Apresoline 25 MG TABLET PO SCH ×3 (10:05→21:04)
[2019-05-15] MEDS: Imdur 30 MG PO SCH (10:05)
[2019-05-15] MEDS: ZOLOFT 50 MG TABLET PO SCH (10:05)
[2019-05-15] MEDS: Klor Con 10 MEQ PO SCH ×2 (10:05→21:04)
[2019-05-15] MEDS: Cozaar 50 MG PO SCH (10:05)
[2019-05-15] MEDS: PRADAXA 75 MG PO SCH ×2 (10:05→21:04)
[2019-05-15] MEDS: Cordarone 200 MG PO SCH (10:06)
[2019-05-15] MEDS: Ocuvite Tablet PO SCH ×2 (10:06→21:04)
[2019-05-15] MEDS: Ranexa 500 MG PO SCH ×2 (10:06→21:03)
[2019-05-15] MEDS: DEMADEX 20 MG PO SCH ×2 (10:06→15:44)
[2019-05-15] MEDS: Lyrica 50MG PO SCH ×2 (10:06→21:04)
[2019-05-15] MEDS: Protonix 40MG Tablet PO SCH (10:06)
[2019-05-15] MEDS: COREG 12.5 MG PO SCH (10:06)
[2019-05-15 10:14] LABS: ANION GAP 13.4 MEQ/L (5-15); Calcium 9.1 mg/dL (8.4-10.2); Creatinine 1 1.18 mg/dL (0.52-1.04); Potassium 4.4 mmol/L (3.5-5.1)
[2019-05-15] MEDS: ROCEPHIN 1 Gm-D5w 50 ml Bag** 1 G/50 ML IVPB IV SCH (13:03)
[2019-05-15] MEDS: OXYCODONE-ACETAMINOPHEN 10-325 PO PRN ×2 (15:43→19:55)
[2019-05-15] MEDS: Lantus Insulin SQ SCH (21:05)
[2019-05-15] MEDS: Ambien 5 MG Tablet PO PRN (21:26)
[2019-05-16] MEDS: solu-MEDROL 125 MG IV SCH ×3 (01:34→16:29)
[2019-05-16 05:57] LABS: Absolute Neutrophil Ct (ANC) 7.94 (1.4-6.9); Basophil (Absolute #) 0 (0-0.4); Eosinophil (Absolute #) 0 (0-0.5); Hematocrit 33.7 % (35-47); Hemoglobin 10.8 gm/dl (12.0-16.0); Lymphocyte (Absolute #) 0.97 (1.0-4.6); Lymphocytes % 10.7 % (24.0-44.0); Mean Cell Volume 98.3 fl (78-100); Mean Corpuscular Hemoglobin 31.5 pg (26-32); Mean Platelet Volume 11.6 fl (7.5-11.0); Monocyte (Absolute #) 0.19 (0.0-1.3); Monocytes % 2.1 % (0.0-12.0); Neutrophil % 87.2 % (36.0-66.0); Platelet Count 221 K/mm3 (150-450); Red Blood Count 3.43 M/mm3 (4.1-5.4); Red Cell Distribution Width 15.3 % (11.5-14.0); White Blood Count 9.1 K/mm3 (4.0-10.5)
[2019-05-16 06:13] LABS: ANION GAP 9.5 MEQ/L (5-15); Calcium 8.5 mg/dL (8.4-10.2); Creatinine 1 1.14 mg/dL (0.52-1.04); Potassium 4.5 mmol/L (3.5-5.1)
--- NOTE | 2019-05-16 08:12 | PCM.NOTE ---
Date and Time: 05/16/19 0810 Subjective Assessment: patient continues to require high flow oxygen but feels well. states her breathing is better and feels to be at baseline Objective Exam General Appearance: no apparent distress, alert, obese Neurologic Exam: alert, oriented x 3, cooperative Respiratory Exam: rhonchi (mostly clear, minimal rhonchi) Cardiovascular Exam: regular rate/rhythm, normal heart sounds Gastrointestinal/Abdomen Exam: soft Extremity Exam: other (LLE in cast) OBJECTIVE DATA Vital Signs: Vital Signs - 24 hr Temp Pulse Resp BP Pulse Ox 05/16/19 07:06 62 20 95 05/16/19 04:00 97.8 F 58 L 21 142/63 94 L 05/16/19 03:05 90 L 05/15/19 23:39 98.0 F 60 16 120/56 94 L 05/15/19 22:18 92 L 05/15/19 19:56 97.7 F 63 20 129/58 96 05/15/19 18:43 67 17 97 05/15/19 15:54 97.5 F 60 17 133/63 94 L 05/15/19 11:43 97.4 F 65 19 138/63 96 Oxygen-Last 24 hours Oxygen Flowrate (L/min)-RT 40 Oxygen Flowrate (L/min)-RT 40 Oxygen Flowrate (L/min)-RT 40 Oxygen Flowrate (L/min)-RT 35 Oxygen Flowrate (L/min)-RT 40 Pain Assessment - Last Documented Pain Intensity 5 Pain Scale Used 0-10 Pain Scale Intake and Output: Intake & Output 05/13/19 05/14/19 05/15/19 05/16/19 11:59 11:59 11:59 11:59 Intake Total 2640 1749 1240 3242 Output Total 4250 3950 2900 3200 Balance -1610 -2201 -1660 42 Weight 119.4 kg 118.8 kg 118.3 kg 119.3 kg Lab Results: Accuchecks Date 05/15/19 Time 21:30 Accucheck Value: 306 Accucheck Value: 215 Accucheck Value: 299 Lab Results-Last 24 Hours 05/15/19 05/16/19 05/16/19 Range/Units 09:15 05:35 05:35 WBC 9.1 (4.0-10.5) K/mm3 RBC 3.43 L (4.1-5.4) M/mm3 Hgb 10.8 L (12.0-16.0) gm/dl Hct 33.7 L (35-47) % MCV 98.3 (78-100) fl MCH 31.5 (26-32) pg MCHC 32.0 (32-36) g/dl RDW 15.3 H (11.5-14.0) % Plt Count 221 (150-450) K/mm3 MPV 11.6 H (7.5-11.0) fl Gran % 87.2 H (36.0-66.0) % Eos # (Auto) 0 (0-0.5) Absolute Lymphs (auto) 0.97 L (1.0-4.6) Absolute Monos (auto) 0.19 (0.0-1.3) Lymphocytes % 10.7 L (24.0-44.0) % Monocytes % 2.1 (0.0-12.0) % Eosinophils % 0.0 (0.00-5.0) % Basophils % 0.0 (0.0-0.4) % Absolute Granulocytes 7.94 H (1.4-6.9) Basophils # 0 (0-0.4) Sodium 141 139 (137-145) mmol/L Potassium 4.4 4.5 (3.5-5.1) mmol/L Chloride 98 100 (98-107) mmol/L Carbon Dioxide 34 H 35 H (22-30) mmol/L Anion Gap 13.4 9.5 (5-15) MEQ/L BUN 51 H 54 H (7-17) mg/dL Creatinine 1.18 H 1.14 H (0.52-1.04) mg/dL Estimated GFR 48.1 50.1 ML/MIN Glucose 314 H 258 H (74-106) mg/dL Calcium 9.1 8.5 (8.4-10.2) mg/dL Radiology Exams: Radiology Procedures Category Date Time Status CHEST 1 VIEW (PORTABLE) Routine Exams 05/14/19 08:00 Completed Assessment/Plan (1) CHF (congestive heart failure) Current Visit: Yes Status: Acute Assessment & Plan: diuresing well, continue current regimen Code(s): I50.9 - HEART FAILURE, UNSPECIFIED (2) Pneumonia Current Visit: Yes Status: Acute Assessment & Plan: on rocephin/zithromax, nebs and steroids Code(s): J18.9 - PNEUMONIA, UNSPECIFIED ORGANISM (3) Left fibular fracture Current Visit: Yes Status: Acute Qualifiers: Encounter type: initial encounter Fibula location: distal Fracture type: closed Fracture morphology: unspecified fracture morphology Qualified Code(s ): S82.832A - Other fracture of upper and lower end of left fibula, initial encounter for closed fracture Code(s): S82.402A - UNSP FRACTURE OF SHAFT OF LEFT FIBULA, INIT FOR CLOS FX (4) Metatarsal fracture Current Visit: Yes Status: Acute Qualifiers: Encounter type: subsequent encounter Metatarsal bone: third Fracture type : closed Fracture alignment: nondisplaced Laterality: left Fracture healing: with routine healing Qualified Code(s): S92.335D - Nondisplaced fracture of third metatarsal bone, left foot, subsequent encounter for fracture with routine healing (5) Frequent falls Current Visit: Yes Status: Acute Code(s): R29.6 - REPEATED FALLS (6) CKD (chronic kidney disease) Current Visit: No Status: Chronic Qualifiers: Chronic kidney disease stage: stage 2 (mild) Qualified Code(s): N18.2 - Chronic kidney disease, stage 2 (mild) Code(s): N18.9 - CHRONIC KIDNEY DISEASE, UNSPECIFIED (7) Chronic obstructive lung disease Current Visit: No Status: Chronic Code(s): J44.9 - CHRONIC OBSTRUCTIVE PULMONARY DISEASE, UNSPECIFIED (8) Diabetes mellitus Current Visit: No Status: Chronic Qualifiers: Diabetes mellitus type: type 2 Diabetes mellitus terminal computer operator insulin use: with terminal computer operator use Diabetes mellitus complication status: with hyperglycemia Qualified Code(s): E11.65 - Type 2 diabetes mellitus with hyperglycemia; Z79.4 - termite control servicer (current) use of insulin Code(s): E11.9 - TYPE 2 DIABETES MELLITUS WITHOUT COMPLICATIONS (9) Paroxysmal atrial fibrillation Current Visit: No Status: Chronic Code(s): I48.0 - PAROXYSMAL ATRIAL FIBRILLATION (10) Renal insufficiency Current Visit: No Status: Chronic
[2019-05-16] MEDS: BUMEX 1 MG IV SCH ×2 (08:14→20:10)
[2019-05-16] MEDS: NovoLOG Insulin SQ SCH ×3 (08:14→18:05)
[2019-05-16] MEDS: OXYCODONE-ACETAMINOPHEN 10-325 PO PRN ×2 (09:08→16:34)
[2019-05-16] MEDS: Ranexa 500 MG PO SCH ×2 (09:09→21:51)
[2019-05-16] MEDS: DEMADEX 20 MG PO SCH ×2 (09:09→16:28)
[2019-05-16] MEDS: Protonix 40MG Tablet PO SCH (09:09)
[2019-05-16] MEDS: Lyrica 50MG PO SCH ×2 (09:09→21:52)
[2019-05-16] MEDS: Zithromax 500 MG/ 250 ML NaCl Premix 500 MG/250 ML IVPB IV SCH (09:09)
[2019-05-16] MEDS: ZOLOFT 50 MG TABLET PO SCH (09:09)
[2019-05-16] MEDS: Apresoline 25 MG TABLET PO SCH ×3 (09:09→21:52)
[2019-05-16] MEDS: ZYLOPRIM 100 MG PO SCH ×2 (09:09→21:52)
[2019-05-16] MEDS: Ocuvite Tablet PO SCH ×2 (09:10→21:52)
[2019-05-16] MEDS: Cozaar 50 MG PO SCH (09:10)
[2019-05-16] MEDS: COREG 12.5 MG PO SCH (09:10)
[2019-05-16] MEDS: Imdur 30 MG PO SCH (09:10)
[2019-05-16] MEDS: ECOTRIN 81 MG PO SCH (09:10)
[2019-05-16] MEDS: PRADAXA 75 MG PO SCH ×2 (09:10→21:52)
[2019-05-16] MEDS: Klor Con 10 MEQ PO SCH ×2 (09:10→21:51)
[2019-05-16] MEDS: Cordarone 200 MG PO SCH (09:10)
[2019-05-16] MEDS: NovoLOG Insulin SQ PRN ×3 (13:12→21:55)
[2019-05-16] MEDS: ROCEPHIN 1 Gm-D5w 50 ml Bag** 1 G/50 ML IVPB IV SCH (13:12)
[2019-05-16] MEDS: Lantus Insulin SQ SCH (21:54)
[2019-05-17] MEDS: solu-MEDROL 125 MG IV SCH ×3 (00:21→18:00)
[2019-05-17 05:15] LABS: Absolute Neutrophil Ct (ANC) 6.93 (1.4-6.9); BASOPHIL % 0.1 % (0.0-0.4); Basophil (Absolute #) 0.01 (0-0.4); Eosinophil (Absolute #) 0 (0-0.5); Hematocrit 33.7 % (35-47); Hemoglobin 10.7 gm/dl (12.0-16.0); Lymphocyte (Absolute #) 1.13 (1.0-4.6); Lymphocytes % 13.5 % (24.0-44.0); Mean Cell Volume 97.1 fl (78-100); Mean Corpuscular Hemoglobin 30.8 pg (26-32); Mean Corpuscular Hgb Concent. 31.8 g/dl (32-36); Mean Platelet Volume 11.8 fl (7.5-11.0); Monocyte (Absolute #) 0.27 (0.0-1.3); Monocytes % 3.2 % (0.0-12.0); Neutrophil % 83.2 % (36.0-66.0); Platelet Count 229 K/mm3 (150-450); Red Blood Count 3.47 M/mm3 (4.1-5.4); Red Cell Distribution Width 15.3 % (11.5-14.0); White Blood Count 8.3 K/mm3 (4.0-10.5)
[2019-05-17 05:55] LABS: ANION GAP 7.6 MEQ/L (5-15); Calcium 8.3 mg/dL (8.4-10.2); Creatinine 1 1.13 mg/dL (0.52-1.04); Potassium 4.4 mmol/L (3.5-5.1)
[2019-05-17] MEDS: BUMEX 1 MG IV SCH (08:11)
[2019-05-17] MEDS: NovoLOG Insulin SQ SCH ×3 (08:14→17:27)
--- NOTE | 2019-05-17 08:46 | PCM.NOTE ---
Date and Time: 05/17/19 0844 Subjective Assessment: patient is doing much better today, tolerated bipap well overnight. she has no complaints today, feels her breathing is at her baseline Objective Exam General Appearance: no apparent distress, obese Neurologic Exam: alert, oriented x 3 Respiratory Exam: normal breath sounds, lungs clear, No respiratory distress Cardiovascular Exam: regular rate/rhythm, normal heart sounds Gastrointestinal/Abdomen Exam: soft, No tenderness, No mass Extremity Exam: normal inspection, normal range of motion OBJECTIVE DATA Vital Signs: Vital Signs - 24 hr Temp Pulse Resp BP Pulse Ox 05/17/19 07:26 98.1 F 50 L 18 124/59 97 05/17/19 03:51 98.1 F 55 L 21 149/67 92 L 05/16/19 23:23 97.7 F 58 L 16 173/74 94 L 05/16/19 21:42 60 21 93 L 05/16/19 19:57 98.0 F 58 L 22 122/56 96 05/16/19 16:00 98.9 F 59 L 12 119/59 94 L 05/16/19 12:00 98.0 F 61 18 125/60 91 L Pain Assessment - Last Documented Pain Intensity 8 Pain Scale Used 0-10 Pain Scale Intake and Output: Intake & Output 05/14/19 05/15/19 05/16/19 05/17/19 11:59 11:59 11:59 11:59 Intake Total 1749 1240 3482 1948 Output Total 3950 2900 3200 2100 Balance -2201 -1660 282 -152 Weight 118.8 kg 118.3 kg 119.3 kg 119 kg Lab Results: Accuchecks Date 05/16/19 Time 21:00 Accucheck Value: 165 Accucheck Value: 366 Accucheck Value: 375 Lab Results-Last 24 Hours 05/17/19 05/17/19 Range/Units 04:27 04:27 WBC 8.3 (4.0-10.5) K/mm3 RBC 3.47 L (4.1-5.4) M/mm3 Hgb 10.7 L (12.0-16.0) gm/dl Hct 33.7 L (35-47) % MCV 97.1 (78-100) fl MCH 30.8 (26-32) pg MCHC 31.8 L (32-36) g/dl RDW 15.3 H (11.5-14.0) % Plt Count 229 (150-450) K/mm3 MPV 11.8 H (7.5-11.0) fl Gran % 83.2 H (36.0-66.0) % Eos # (Auto) 0 (0-0.5) Absolute Lymphs (auto) 1.13 (1.0-4.6) Absolute Monos (auto) 0.27 (0.0-1.3) Lymphocytes % 13.5 L (24.0-44.0) % Monocytes % 3.2 (0.0-12.0) % Eosinophils % 0.0 (0.00-5.0) % Basophils % 0.1 (0.0-0.4) % Absolute Granulocytes 6.93 H (1.4-6.9) Basophils # 0.01 (0-0.4) Sodium 139 (137-145) mmol/L Potassium 4.4 (3.5-5.1) mmol/L Chloride 99 (98-107) mmol/L Carbon Dioxide 36 H (22-30) mmol/L Anion Gap 7.6 (5-15) MEQ/L BUN 53 H (7-17) mg/dL Creatinine 1.13 H (0.52-1.04) mg/dL Estimated GFR 50.6 ML/MIN Glucose 193 H (74-106) mg/dL Calcium 8.3 L (8.4-10.2) mg/dL NT-Pro-B Natriuret Pep 1220 H (0-900) pg/mL Multi-Disciplinary Progress Notes: Multi-Disciplinary Progress Notes 05/17/19 07:33 Pharmacy Note by Johnson Oseguera Today is day 7 of Rocephin and Zithromax IV. Recommend changing to oral when able. Initialized on 05/17/19 07:33 - END OF NOTE 05/16/19 21:36 Respiratory Note by Phyllis Oh 05/16/2019 21:36 I AM LATE CHECKING ON THIS PATIENT DUE TO AN EMERGENCY C- SECTION AND HAVING TO BE IN SURGERY AND IN THE NURSERY FOR AN EXTENDED AMOUNT OF TIME. NURSING HOWEVER CHECKED ON THE PATIENT WHILE SHE WAS ON HIGH FLOW AND THERE WERE NO COMPLICATIONS. Initialized on 05/16/19 21:36 - END OF NOTE Assessment/Plan (1) CHF (congestive heart failure) Current Visit: Yes Status: Acute Assessment & Plan: appears euvolemic at this time, reduce IV diuresis. attempt to wean to cannula, likely to ecf tomorrow if not requiring high oxygen levels. Code(s): I50.9 - HEART FAILURE, UNSPECIFIED (2) Pneumonia Current Visit: Yes Status: Acute Code(s): J18.9 - PNEUMONIA, UNSPECIFIED ORGANISM (3) Left fibular fracture Current Visit: Yes Status: Acute Qualifiers: Encounter type: initial encounter Fibula location: distal Fracture type: closed Fracture morphology: unspecified fracture morphology Qualified Code(s ): S82.832A - Other fracture of upper and lower end of left fibula, initial encounter for closed fracture Code(s): S82.402A - UNSP FRACTURE OF SHAFT OF LEFT FIBULA, INIT FOR CLOS FX (4) Metatarsal fracture Current Visit: Yes Status: Acute Qualifiers: Encounter type: subsequent encounter Metatarsal bone: third Fracture type : closed Fracture alignment: nondisplaced Laterality: left Fracture healing: with routine healing Qualified Code(s): S92.335D - Nondisplaced fracture of third metatarsal bone, left foot, subsequent encounter for fracture with routine healing (5) Frequent falls Current Visit: Yes Status: Acute Code(s): R29.6 - REPEATED FALLS (6) CKD (chronic kidney disease) Current Visit: No Status: Chronic Qualifiers: Chronic kidney disease stage: stage 2 (mild) Qualified Code(s): N18.2 - Chronic kidney disease, stage 2 (mild) Code(s): N18.9 - CHRONIC KIDNEY DISEASE, UNSPECIFIED (7) Chronic obstructive lung disease Current Visit: No Status: Chronic Code(s): J44.9 - CHRONIC OBSTRUCTIVE PULMONARY DISEASE, UNSPECIFIED (8) Diabetes mellitus Current Visit: No Status: Chronic Qualifiers: Diabetes mellitus type: type 2 Diabetes mellitus nursing home insulin use: with terminal operations supervisor use Diabetes mellitus complication status: with hyperglycemia Qualified Code(s): E11.65 - Type 2 diabetes mellitus with hyperglycemia; Z79.4 - predatory animal exterminator (current) use of insulin Code(s): E11.9 - TYPE 2 DIABETES MELLITUS WITHOUT COMPLICATIONS (9) Paroxysmal atrial fibrillation Current Visit: No Status: Chronic Code(s): I48.0 - PAROXYSMAL ATRIAL FIBRILLATION (10) Renal insufficiency Current Visit: No Status: Chronic
[2019-05-17] MEDS: DEMADEX 20 MG PO SCH ×2 (09:49→17:27)
[2019-05-17] MEDS: Imdur 30 MG PO SCH (09:49)
[2019-05-17] MEDS: Klor Con 10 MEQ PO SCH ×2 (09:49→21:55)
[2019-05-17] MEDS: Apresoline 25 MG TABLET PO SCH ×3 (09:49→21:56)
[2019-05-17] MEDS: Lyrica 50MG PO SCH ×2 (09:49→21:56)
[2019-05-17] MEDS: Ocuvite Tablet PO SCH ×2 (09:50→21:56)
[2019-05-17] MEDS: Protonix 40MG Tablet PO SCH (09:50)
[2019-05-17] MEDS: COREG 12.5 MG PO SCH (09:50)
[2019-05-17] MEDS: PRADAXA 75 MG PO SCH ×2 (09:50→22:18)
[2019-05-17] MEDS: Cozaar 50 MG PO SCH (09:50)
[2019-05-17] MEDS: Cordarone 200 MG PO SCH (09:50)
[2019-05-17] MEDS: Ranexa 500 MG PO SCH ×2 (09:50→21:55)
[2019-05-17] MEDS: ZYLOPRIM 100 MG PO SCH ×2 (09:50→21:56)
[2019-05-17] MEDS: Zithromax 500 MG/ 250 ML NaCl Premix 500 MG/250 ML IVPB IV SCH (09:51)
[2019-05-17] MEDS: ECOTRIN 81 MG PO SCH (09:51)
[2019-05-17] MEDS: ZOLOFT 50 MG TABLET PO SCH (09:51)
[2019-05-17] MEDS: ROCEPHIN 1 Gm-D5w 50 ml Bag** 1 G/50 ML IVPB IV SCH (12:51)
[2019-05-17] MEDS: OXYCODONE-ACETAMINOPHEN 10-325 PO PRN ×3 (13:00→22:04)
[2019-05-17] MEDS: TYLENOL 325 MG PO PRN (15:33)
[2019-05-17] MEDS: NovoLOG Insulin SQ PRN ×2 (17:27→21:58)
[2019-05-17] MEDS: Ambien 5 MG Tablet PO PRN (21:56)
[2019-05-17] MEDS: Lantus Insulin SQ SCH (21:57)
[2019-05-18] MEDS: solu-MEDROL 125 MG IV SCH ×2 (00:22→08:28)
[2019-05-18 04:55] LABS: Hematocrit 34.1 % (35-47); Mean Cell Volume 97.4 fl (78-100); Mean Corpuscular Hemoglobin 31.4 pg (26-32); Mean Corpuscular Hgb Concent. 32.3 g/dl (32-36); Mean Platelet Volume 11.6 fl (7.5-11.0); Platelet Count 235 K/mm3 (150-450); Red Cell Distribution Width 15.6 % (11.5-14.0); White Blood Count 9.7 K/mm3 (4.0-10.5)
[2019-05-18 05:18] LABS: ANION GAP 7.8 MEQ/L (5-15); Calcium 8.2 mg/dL (8.4-10.2); Creatinine 1 1.15 mg/dL (0.52-1.04); Potassium 4.4 mmol/L (3.5-5.1)
[2019-05-18 07:28] VITALS: BP 144/65; PULSE 56; O2SAT 97
[2019-05-18 08:00] LABS: BAND 2 % (0.0-2.0); Lymphocytes 12 % (24-44); Monocyte 2 % (0.0-12.0); Neutrophils 84 % (36.0-66.0); Nucleated Red Blood Cell 1 %; Platelet Estimate NORMAL (NORMAL); Total Cells Counted 100
[2019-05-18] MEDS: NovoLOG Insulin SQ SCH (08:26)
--- NOTE | 2019-05-18 08:36 | PCM.NOTE ---
Date and Time: 05/18/19829 Subjective Assessment: Pt with no complaints today. Currently on 2L NC. Denies any significant L leg pain. Ready to d/c to [facility]. - Review of Systems Constitutional: No Fever Abdominal/Gastrointestinal: No Vomiting Objective Exam General Appearance: no apparent distress, alert, obese Neurologic Exam: oriented x 3, cooperative Skin Exam: normal color, warm, dry, No rash Eye Exam: eyes nml inspection Ears, Nose, Throat Exam: moist mucous membranes Neck Exam: normal inspection Respiratory Exam: normal breath sounds, lungs clear, No crackles/rales, No rhonchi, No wheezing Cardiovascular Exam: regular rate/rhythm, normal heart sounds, No murmur Extremity Exam: other (LLE in cast; toes are warm and neurovascularly intact.) Back Exam: normal inspection, No rash OBJECTIVE DATA Vital Signs: Vital Signs - 24 hr Temp Pulse Resp BP Pulse Ox 05/18/19 07:27 98 F 56 L 20 144/65 97 05/18/19 04:00 97 F 57 L 14 135/62 90 L 05/18/19 00:00 97.9 F 52 L 16 130/59 92 L 05/17/19 20:17 54 L 17 92 L 05/17/19 19:41 97.9 F 56 L 18 136/61 92 L 05/17/19 16:29 97.7 F 60 20 128/59 96 05/17/19 11:47 98.1 F 56 L 18 131/58 95 05/17/19 11:21 61 18 98 Pain Assessment - Last Documented Pain Intensity 3 Pain Scale Used 0-10 Pain Scale Intake and Output: Intake & Output 05/15/19 05/16/19 05/17/19 05/18/19 11:59 11:59 11:59 11:59 Intake Total 1240 3482 2428 2260 Output Total 2900 3200 2700 2450 Balance -1660 282 -272 -190 Weight 118.3 kg 119.3 kg 119 kg 122.6 kg Lab Results: Accuchecks Date 05/18/19 Date 05/17/19 Time 07:56 Accucheck Value: 177 Accucheck Value: 282 Accucheck Value: 306 Accucheck Value: 250 Lab Results-Last 24 Hours 05/18/19 05/18/19 Range/Units 04:15 04:15 WBC 9.7 (4.0-10.5) K/mm3 RBC 3.50 L (4.1-5.4) M/mm3 Hgb 11.0 L (12.0-16.0) gm/dl Hct 34.1 L (35-47) % MCV 97.4 (78-100) fl MCH 31.4 (26-32) pg MCHC 32.3 (32-36) g/dl RDW 15.6 H (11.5-14.0) % Plt Count 235 (150-450) K/mm3 MPV 11.6 H (7.5-11.0) fl Segmented Neutrophils 84 H (36.0-66.0) % Band Neutrophils 2 (0.0-2.0) % Lymphocytes (Manual) 12 L (24-44) % Monocytes (Manual) 2 (0.0-12.0) % Nucleated RBCs 1 % Platelet Estimate NORMAL (NORMAL) RBC Morphology NORMAL Sodium 139 (137-145) mmol/L Potassium 4.4 (3.5-5.1) mmol/L Chloride 98 (98-107) mmol/L Carbon Dioxide 38 H (22-30) mmol/L Anion Gap 7.8 (5-15) MEQ/L BUN 51 H (7-17) mg/dL Creatinine 1.15 H (0.52-1.04) mg/dL Estimated GFR 49.6 ML/MIN Glucose 171 H (74-106) mg/dL Calcium 8.2 L (8.4-10.2) mg/dL Multi-Disciplinary Progress Notes: Multi-Disciplinary Progress Notes 05/17/19 11:45 Case Management Note by Radha Grullon S/Merna MOREAU WHO PLACED PATIENT'S CAST- SHE WOULD LIKE TO SEE THE PATIENT IN THE ORTHO CLINIC IN 2 WEEKS AND PATIENT SHOULD BE ONLY TOUCH TOE WEIGHT BEARING FOR TRANSFERS OTHERWISE NWB ON LEFT FOOT Initialized on 05/17/19 11:45 - END OF NOTE 05/17/19 09:57 Case Management Note by Radha Grullon S/Merna PATIENT- SHE IS STILL PLANNING TO TRANSITION TO [facility] AT TIME OF DISCHARGE FOR REHAB. [facility] WAS CALLED AND UPDATED ON PATIENT'S STATUS AND POSSIBLE DC PLAN FOR TOMORROW Initialized on 05/17/19 09:57 - END OF NOTE 05/17/19 08:56 Nutrition Note by Gema Ward F/u Note: 1800 ADA diet con't with 75-100% po intake. adm weight 115.8 kg; current weight 119 kg. neg fluid balance 458 mls. Labs 05/17= BUN 53, Cr 1.13, glu 193, hgb 10.7, hct 33.7. goal #1 of consuming >=75% po intake met and ongoing; goal #2 of glu wnl not met. Diet is appropriate. Recommend to cont with diet and goals. Will con't to monitor and f/u prn. T.SHARONA Ward Initialized on 05/17/19 08:56 - END OF NOTE Assessment/Plan (1) Pneumonia Current Visit: Yes Status: Acute Qualifiers: Pneumonia type: due to unspecified organism Assessment & Plan: Has completed 7d of rocephin and zithromax IV. Will change to po cefdinir for 3 more days. Code(s): J18.9 - PNEUMONIA, UNSPECIFIED ORGANISM (2) CHF (congestive heart failure) Current Visit: Yes Status: Acute Code(s): I50.9 - HEART FAILURE, UNSPECIFIED (3) Hypoxemia Current Visit: Yes Status: Acute Assessment & Plan: To [facility] on 2L NC for now. Code(s): R09.02 - HYPOXEMIA (4) Left fibular fracture Current Visit: Yes Status: Acute Qualifiers: Encounter type: subsequent encounter Fibula location: distal Fracture type: closed Fracture morphology: unspecified fracture morphology Assessment & Plan: Has cast; has appt to see ortho clinic outpatient. Code(s): S82.402A - UNSP FRACTURE OF SHAFT OF LEFT FIBULA, INIT FOR CLOS FX (5) Metatarsal fracture Current Visit: Yes Status: Acute Qualifiers: Encounter type: subsequent encounter Metatarsal bone: third Fracture type : closed Fracture alignment: nondisplaced Laterality: left Fracture healing: with routine healing Qualified Code(s): S92.335D - Nondisplaced fracture of third metatarsal bone, left foot, subsequent encounter for fracture with routine healing (6) Frequent falls Current Visit: Yes Status: Acute Code(s): R29.6 - REPEATED FALLS (7) CKD (chronic kidney disease) Current Visit: No Status: Chronic Qualifiers: Chronic kidney disease stage: stage 2 (mild) Qualified Code(s): N18.2 - Chronic kidney disease, stage 2 (mild) Code(s): N18.9 - CHRONIC KIDNEY DISEASE, UNSPECIFIED (8) Weakness Current Visit: No Status: Chronic Assessment & Plan: to LTCF for rehab Code(s): R53.1 - WEAKNESS (9) Chronic obstructive lung disease Current Visit: No Status: Chronic Code(s): J44.9 - CHRONIC OBSTRUCTIVE PULMONARY DISEASE, UNSPECIFIED (10) Diabetes mellitus Current Visit: No Status: Chronic Qualifiers: Diabetes mellitus type: type 2 Diabetes mellitus manager intermediate insulin use: with custodial use Diabetes mellitus complication status: with hyperglycemia Qualified Code(s): E11.65 - Type 2 diabetes mellitus with hyperglycemia; Z79.4 - computer terminal operator (current) use of insulin Code(s): E11.9 - TYPE 2 DIABETES MELLITUS WITHOUT COMPLICATIONS (11) Essential hypertension Current Visit: No Status: Chronic Code(s): I10 - ESSENTIAL (PRIMARY) HYPERTENSION (12) Paroxysmal atrial fibrillation Current Visit: No Status: Chronic Code(s): I48.0 - PAROXYSMAL ATRIAL FIBRILLATION
--- NOTE | 2019-05-18 08:44 | PCM.DCORD ---
- Discharge Disposition: DC TO ANY "OTHER" [facility] Condition: Stable Prescriptions: New Cefdinir 300 mg PO BID #6 capsule Oxycodone / APAP 10/325 mg [Oxycodone-Acetaminophen 10-325] 1 tab PO TID PRN PRN #6 tablet MDD 3 PRN Reason: Pain Prednisone 10 mg PO DAILY #39 tab.ds.pk Continue HydrALAzine HCL 25 MG TAB [Apresoline 25 MG TABLET] 25 mg PO TID Torsemide 20 mg [Demadex 20 mg] 40 mg PO BID Allopurinol 100 mg [Zyloprim 100 mg] 100 mg PO BID Dabigatran Etexilate Mesylate [Pradaxa] 150 mg PO BID Ranolazine [Ranexa] 1,000 mg PO BID Sertraline HCl 50 mg [Zoloft 50 mg Tablet] 50 mg PO DAILY Losartan Potassium [Cozaar] 100 mg PO DAILY Isosorbide Mononitrate 30 mg [Imdur 30 MG] 30 mg PO DAILY Carvedilol 12.5 mg [Coreg 12.5 mg] 12.5 mg PO DAILY Amiodarone HCl 200 mg [Cordarone 200 MG] 200 mg PO DAILY PANTOPRAZOLE 40 mg Tablet [Protonix 40MG Tablet] 40 mg PO DAILY Multivitamin [Daily Multivitamin] 0.5 each PO BID Nisland-3S/Dha/Epa/Fish Oil [Nisland Power 1,050 mg Softgel] 1,050 mg PO BID Aspirin 81 mg PO DAILY Beta-Carotene(A) W-C & E/Min [Ocuvite Tablet] 1 tab PO BID Potassium Chloride 10 Meq Tab* [Klor Con 10 MEQ] 40 meq PO BID Albuterol/Ipratropium 3ml Neb* [DUONEB 0.5-3 MG/3 ml Neb] 3 ml IH QID PRN PRN PRN Reason: Shortness Of Breath/Wheezing Pregabalin 50 mg [Lyrica 50MG] 50 mg PO BID Insulin Lispro [Humalog] 14 unit SQ UD Insulin Glargine [Lantus Insulin] 28 unit SQ QHS Additional Instructions: [facility] ORDERS: -1800 ADA DIET -PT/OT EVAL AND TREAT (PATIENT TO ONLY BE TOUCH TOE WEIGHT BEARING FOR TRANSFERS OTHERWISE NON WEIGHTBEARING ON LEFT LEG/FOOT) -ACCUCHECKS ACHS -SEE ATTACHED MEDICATION LIST FOR MEDICATION ORDERS Follow up with: MAGGY RODAS [ACTIVE STAFF] - 1 Week (F/U in one month from d/c) LUIS GALLOWAY MD [Primary Care Provider] - 1 Week CHLOE MOREAU NP [NON-STAFF PHY W/O PRIVILEGES] - 1 Week (2 WEEKS)
[2019-05-18] MEDS: PRADAXA 75 MG PO SCH (08:52)
[2019-05-18] MEDS: Ocuvite Tablet PO SCH (08:52)
[2019-05-18] MEDS: ZYLOPRIM 100 MG PO SCH (08:54)
[2019-05-18] MEDS: Apresoline 25 MG TABLET PO SCH (08:54)
[2019-05-18] MEDS: COREG 12.5 MG PO SCH (08:55)
[2019-05-18] MEDS: ECOTRIN 81 MG PO SCH (08:55)
[2019-05-18] MEDS: Cordarone 200 MG PO SCH (08:55)
[2019-05-18] MEDS: DEMADEX 20 MG PO SCH (09:07)
[2019-05-18] MEDS: Klor Con 10 MEQ PO SCH (09:08)
[2019-05-18] MEDS: Cozaar 50 MG PO SCH (09:08)
[2019-05-18] MEDS: Ranexa 500 MG PO SCH (09:09)
[2019-05-18] MEDS: Protonix 40MG Tablet PO SCH (09:10)
[2019-05-18] MEDS: Lyrica 50MG PO SCH (09:10)
[2019-05-18] MEDS: ZOLOFT 50 MG TABLET PO SCH (09:10)
[2019-05-18] MEDS: Imdur 30 MG PO SCH (09:11)
== END 2019-05-18 10:20 | DRG 562 ==
LOC: ED 02:44 → MED SURG 04:43 → OBSVTOIN 05-09 13:38
PROVIDERS: ADMIT Family Medicine; ATTEND Family Medicine
DX: S82.832A Other fracture of upper and lower end of left fibula, initial encounter for closed fracture (principal); J18.9 Pneumonia, unspecified organism; J96.21 Acute and chronic respiratory failure with hypoxia; I13.0 Hypertensive heart and chronic kidney disease with heart failure and stage 1 through stage 4 chronic kidney disease, or unspecified chronic kidney disease; S92.332A Displaced fracture of third metatarsal bone, left foot, initial encounter for closed fracture; J44.9 Chronic obstructive pulmonary disease, unspecified; E11.22 Type 2 diabetes mellitus with diabetic chronic kidney disease; E87.5 Hyperkalemia; N18.2 Chronic kidney disease, stage 2 (mild); G47.33 Obstructive sleep apnea (adult) (pediatric); I48.91 Unspecified atrial fibrillation; M79.672 Pain in left foot; I50.9 Heart failure, unspecified; R53.1 Weakness; R79.1 Abnormal coagulation profile; M06.9 Rheumatoid arthritis, unspecified; I48.0 Paroxysmal atrial fibrillation; I25.2 Old myocardial infarction; R29.6 Repeated falls; Z79.01 Long term (current) use of anticoagulants; Z79.899 Other long term (current) drug therapy; F51.01 Primary insomnia
CPT/HCPCS: 36415; 71045; 73610; 73620; 80048; 81001; 82962; 83036; 83880; 85025; 85027; 85379; 93268; 93970; 94003; 94660; 94760; 94762; 96360; 97110; 97161; 97530; 99284; G0378; J0456; J0696; J2930; A9270-GY

== ENCOUNTER 2019-09-23 12:53 | Inpatient (IN) | payer MEDICARE, BC ==
--- NOTE | 2019-09-23 13:21 | XRAY ---
Indication: Short of breath, chest tightness, nausea. Comparison: May 14, 2019. Portable chest again demonstrates left mid lung discoid atelectasis/scarring. Remaining heart and lungs unremarkable. Bony thorax intact again with mild degenerative changes. Impression: Nonacute chest with chronic features.
[2019-09-23 13:55] LABS: Absolute Neutrophil Ct (ANC) 4.73 (1.4-6.9); BASOPHIL % 0.3 % (0.0-0.4); Basophil (Absolute #) 0.02 (0-0.4); Eosinophil % 0.5 % (0.00-5.0); Eosinophil (Absolute #) 0.04 (0-0.5); Hematocrit 40.7 % (35-47); Hemoglobin 13.1 gm/dl (12.0-16.0); Lymphocyte (Absolute #) 2.27 (1.0-4.6); Lymphocytes % 29.4 % (24.0-44.0); Mean Cell Volume 93.6 fl (78-100); Mean Corpuscular Hemoglobin 30.1 pg (26-32); Mean Corpuscular Hgb Concent. 32.2 g/dl (32-36); Mean Platelet Volume 11.9 fl (7.5-11.0); Monocyte (Absolute #) 0.66 (0.0-1.3); Monocytes % 8.5 % (0.0-12.0); Neutrophil % 61.3 % (36.0-66.0); Platelet Count 177 K/mm3 (150-450); Red Blood Count 4.35 M/mm3 (4.1-5.4); Red Cell Distribution Width 17.3 % (11.5-14.0); White Blood Count 7.7 K/mm3 (4.0-10.5)
--- NOTE | 2019-09-23 14:06 | ERPHSYRPT ---
- History of Present Illness Time Seen by Provider: 09/23/19 13:10 Source: patient Patient Subjective Stated Complaint: Pt states "I was sitting there at the table and I got a little dizzy and my chest got tight, i got nauseated and I vomited." Triage Nursing Assessment: Pt presented alert and oriente x 3, ski pwd pt unable to ambulates. Pt able to speak in clear full sentences pt in no apparent respiratory ditress. pt arrived with 20 g iv in left hand. Physician History: Patient is a 69-year-old female presents to our ED with complaints of dizziness. Patient was at home when she experienced sudden onset dizziness. Patient simultaneously felt nauseous. Patient vomited once. Patient complains of a tightness across her chest. She has a sharp pain associated with a tightness. Symptoms are constant. No specific worsening or improving factors. Timing/Duration: today Severity: moderate Modifying Factors: Improves With: nothing Associated Symptoms: nausea, vomiting, No syncope Allergies/Adverse Reactions: morphine Allergy (Severe, Verified 05/17/19 13:18) anaphylaxis pt went into respiratory failure and acute renal failure the last time she had morphine. "I was in a coma for a week" adhesive Allergy (Mild, Verified 03/23/19 17:34) Blisters aspirin Allergy (Verified 03/23/19 17:34) Difficulty Breathing PT STATES THAT SHE CAN TAKE ASPIRIN 81 MG BUT NOTHING HIGHER IN DOSE. Penicillins Allergy (Verified 03/23/19 17:34) Rash povidone-iodine [From Betadine] Allergy (Verified 03/23/19 17:34) BLISTERES soap [From Betadine] Allergy (Verified 03/23/19 17:34) Blisters Home Medications: Allopurinol 100 mg [Zyloprim 100 mg] 100 mg PO BID 11/18/18 [History] Amiodarone HCl 200 mg [Cordarone 200 MG] 200 mg PO DAILY 11/18/18 [History] Aspirin 81 mg PO DAILY 11/18/18 [History] Carvedilol 12.5 mg [Coreg 12.5 mg] 12.5 mg PO DAILY 11/18/18 [History] Dabigatran Etexilate Mesylate [Pradaxa] 150 mg PO BID 11/18/18 [History] HydrALAzine HCL 25 MG TAB [Apresoline 25 MG TABLET] 25 mg PO TID 11/18/18 [History] Isosorbide Mononitrate 30 mg [Imdur 30 MG] 30 mg PO DAILY 11/18/18 [History] Losartan Potassium [Cozaar] 100 mg PO DAILY 11/18/18 [History] Multivitamin [Daily Multivitamin] 0.5 each PO BID 11/18/18 [History] Jackson-3S/Dha/Epa/Fish Oil [Jackson Power 1,050 mg Softgel] 1,050 mg PO BID 11/18/18 [History] PANTOPRAZOLE 40 mg Tablet [Protonix 40MG Tablet] 40 mg PO DAILY 11/18/18 [History] Ranolazine [Ranexa] 1,000 mg PO BID 11/18/18 [History] Sertraline HCl 50 mg [Zoloft 50 mg Tablet] 50 mg PO DAILY 11/18/18 [History] Torsemide 20 mg [Demadex 20 mg] 40 mg PO BID 11/18/18 [History] Albuterol/Ipratropium 3ml Neb* [DUONEB 0.5-3 MG/3 ml Neb] 3 ml IH QID PRN PRN 01/02/19 [History] Beta-Carotene(A) W-C & E/Min [Ocuvite Tablet] 1 tab PO BID 01/02/19 [History] Potassium Chloride 10 Meq Tab* [Klor Con 10 MEQ] 40 meq PO BID 01/02/19 [History] Insulin Glargine [Lantus Insulin] 28 unit SQ QHS 03/23/19 [History] Insulin Lispro [Humalog] 14 unit SQ UD 03/23/19 [History] Pregabalin 50 mg [Lyrica 50MG] 50 mg PO BID 03/23/19 [History] Hx Tetanus, Diphtheria Vaccination/Date Given: Yes Hx Influenza Vaccination/Date Given: Yes Hx Pneumococcal Vaccination/Date Given: Yes Immunizations Up to Date: Yes Travel Risk - International Travel Have you traveled outside of the country in past 3 weeks: No - Coronavirus Screening Are you exhibiting any of the following symptoms?: Yes Symptoms: Shortness of Breath Close contact with a COVID-19 positive Pt in past 14-21 Days: No - Review of Systems Constitutional: No Symptoms, No Fever, No Chills Eyes: No Symptoms Ears, Nose, & Throat: No Symptoms Respiratory: No Symptoms, No Cough, No Dyspnea Cardiac: No Symptoms, No Chest Pain, No Edema, No Syncope Abdominal/Gastrointestinal: No Symptoms, No Abdominal Pain, No Nausea, No Vomiting, No Diarrhea Genitourinary Symptoms: No Symptoms, No Dysuria Musculoskeletal: No Symptoms, No Back Pain, No Neck Pain Skin: No Symptoms, No Rash Neurological: No Symptoms, No Dizziness, No Focal Weakness, No Sensory Changes Psychological: No Symptoms Endocrine: No Symptoms Hematologic/Lymphatic: No Symptoms All Other Systems: Reviewed and Negative - Past Medical History Pertinent Past Medical History: Yes Neurological History: No Pertinent History ENT History: No Pertinent History Cardiac History: Congestive Heart Failure, Hypertension, Myocardial Infarction (ME), Other Respiratory History: CHF, COPD Endocrine Medical History: Diabetes Type II Musculoskeletal History: Fractures, Rheumatoid Arthritis GI Medical History: No Pertinent History History: No Pertinent History Psycho-Social History: No Pertinent History Female Reproductive Disorders: No Pertinent History Other Medical History: 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 Heart murmur with afib hx. 2-3 dialysis treatments when on vent due to morphine allergy. hx hepatitis A as a child - Past Surgical History Past Surgical History: Yes Neuro Surgical History: No Pertinent History Cardiac: No Pertinent History Respiratory: No Pertinent History Gastrointestinal: Appendectomy Genitourinary: No Pertinent History Musculoskeletal: Orthopedic Surgery Female Surgical History: Hysterectomy Other Surgical History: Multiple hand surgeries, right knee surgery - Social History Smoking Status: Former smoker How long have you smoked: 1 year Exposure to second hand smoke: No Alcohol Use: None Drug Use: none Patient Lives Alone: No Significant Family History: diabetes, hypertension - Female History Hx Now: No - Nursing Vital Signs Nursing Vital Signs: Initial Vital Signs Temperature 97.6 F 09/23/19 13:02 Pulse Rate 60 09/23/19 13:02 Respiratory Rate 20 09/23/19 13:02 Blood Pressure 121/49 09/23/19 13:02 O2 Sat by Pulse Oximetry 96 09/23/19 13:02 Pain Scale Pain Intensity 0 - Physical Exam General Appearance: no apparent distress, alert Eye Exam: PERRL/EOMI, eyes nml inspection Ears, Nose, Throat Exam: normal ENT inspection, TMs normal, pharynx normal, moist mucous membranes Neck Exam: normal inspection, non-tender, supple, full range of motion Respiratory Exam: normal breath sounds, lungs clear, No respiratory distress Cardiovascular Exam: regular rate/rhythm, normal heart sounds, normal peripheral pulses Gastrointestinal/Abdomen Exam: soft, normal bowel sounds, No tenderness, No mass Pelvic Exam: not done Rectal Exam: deferred Back Exam: normal inspection, normal range of motion, No CVA tenderness, No vertebral tenderness Extremity Exam: normal inspection, normal range of motion, pelvis stable, swelling (Bilateral lower extremity pitting edema. Patient states this is chron ic.) Neurologic Exam: alert, oriented x 3, cooperative, normal mood/affect, nml cerebellar function, nml station & gait, sensation nml, No motor deficits Skin Exam: normal color, warm, dry, No rash Lymphatic Exam: No adenopathy SpO2 Interpretation: normal SpO2: 96 O2 Delivery: Room Air - Course Nursing assessment & vital signs reviewed: Yes EKG Interpreted by Me: RATE (65), Sinus Rhythm, Left Ingraham Deviation, NORMAL INTERVALS - Radiology Exams Chest X-ray Interpretation: Teleradiologist Report (Left midlung discoid atelectasis with scarring. Remaining heart and lungs are unremarkable. Nonacute chest with chronic features.) Ordered Tests: Active Orders 24 hr Category Date Time Status Pre Wave Assembler STAT Care 09/23/19 12:58 Active EKG-ER Only STAT Care 09/23/19 12:57 Active IV Insertion STAT Care 09/23/19 12:57 Active Pulse Oximetry (ED) STAT Care 09/23/19 12:57 Active CHEST 1 VIEW (PORTABLE) Stat Exams 09/23/19 12:58 Completed CBC W DIFF Stat Lab 09/23/19 12:57 Completed CMP Stat Lab 09/23/19 12:57 Completed MAGNESIUM Stat Lab 09/23/19 12:57 Completed NT PRO BNP Stat Lab 09/23/19 12:57 Completed TROPONIN Q3H Lab 09/23/19 12:57 Completed TROPONIN Q3H Lab 09/23/19 16:00 Ordered TROPONIN Q3H Lab 09/23/19 19:00 Ordered TROPONIN Q3H Lab 09/23/19 22:00 Ordered TROPONIN Q3H Lab 09/24/19 01:00 Ordered UA W/RFX UR CULTURE Stat Lab 09/23/19 12:58 Uncollected Transfer Order Routine Transfer 09/23/19 Ordered Lab/Rad Data: Laboratory Result Diagrams 09/23/19 12:57 09/23/19 12:57 Laboratory Results 09/23/19 09/23/19 09/23/19 Range/Units 12:57 12:57 12:57 WBC 7.7 (4.0-10.5) K/mm3 RBC 4.35 (4.1-5.4) M/mm3 Hgb 13.1 (12.0-16.0) gm/dl Hct 40.7 (35-47) % MCV 93.6 (78-100) fl MCH 30.1 (26-32) pg MCHC 32.2 (32-36) g/dl RDW 17.3 H (11.5-14.0) % Plt Count 177 (150-450) K/mm3 MPV 11.9 H (7.5-11.0) fl Gran % 61.3 (36.0-66.0) % Eos # (Auto) 0.04 (0-0.5) Absolute Lymphs (auto) 2.27 (1.0-4.6) Absolute Monos (auto) 0.66 (0.0-1.3) Lymphocytes % 29.4 (24.0-44.0) % Monocytes % 8.5 (0.0-12.0) % Eosinophils % 0.5 (0.00-5.0) % Basophils % 0.3 (0.0-0.4) % Absolute Granulocytes 4.73 (1.4-6.9) Basophils # 0.02 (0-0.4) Sodium 142 (137-145) mmol/L Potassium 4.3 (3.5-5.1) mmol/L Chloride 102 (98-107) mmol/L Carbon Dioxide 31 H (22-30) mmol/L Anion Gap 12.0 (5-15) MEQ/L BUN 26 H (7-17) mg/dL Creatinine 1.03 (0.52-1.04) mg/dL Estimated GFR 56.3 ML/MIN Glucose 108 H (74-106) mg/dL Calcium 9.1 (8.4-10.2) mg/dL Magnesium 2.2 (1.6-2.3) mg/dL Total Bilirubin 0.60 (0.2-1.3) mg/dL AST 23 (14-36) U/L ALT 24 (0-35) U/L Alkaline Phosphatase 111 (38-126) U/L Troponin I < 0.012 (0.000-0.034) ng/mL NT-Pro-B Natriuret Pep 220 (0-900) pg/mL Serum Total Protein 6.4 (6.3-8.2) g/dL Albumin 3.6 (3.5-5.0) g/dL - Progress Progress: improved Progress Note: 09/23/19 15:12 Patient reassessed. No active chest pain. In light of her cardiac risk factors and chest pain we will admit patient for cardiac rule out. Case discussed with who accepts admission to observation. Plan of care discussed with patient. She agrees to admission to [facility] for further evaluation and treatment. Patient had aspirin prior to arrival. Nitropaste applied. Patient given Tylenol for headache. 09/23/19 15:[address] Amy Will see patient in: hospital (observation) Counseled pt/family regarding: lab results, diagnosis, rad results - Departure Departure Disposition: In-patient Admission, Observation Clinical Impression: Chest pain, ACS (acute coronary syndrome) Condition: Stable Critical Care Time: No Referrals: LUIS GALLOWAY MD [Primary Care Provider] -
[2019-09-23 14:09] LABS: ALBUMIN 3.6 g/dL (3.5-5.0); BILIRUBIN,TOTAL 0.6 mg/dL (0.2-1.3); Calcium 9.1 mg/dL (8.4-10.2); Creatinine 1 1.03 mg/dL (0.52-1.04); MAGNESIUM 2.2 mg/dL (1.6-2.3); Potassium 4.3 mmol/L (3.5-5.1); Total Protein 6.4 g/dL (6.3-8.2)
[2019-09-23] MEDS ORDERED: NITRO-BID 2% UD PACKETS TOP ONE (15:19)
[2019-09-23] MEDS ORDERED: TYLENOL 325 MG PO STA (15:20)
[2019-09-23] MEDS ORDERED: NITRO-BID 2% UD PACKETS ONE (15:28)
[2019-09-23] MEDS ORDERED: TYLENOL 325 MG ONE (15:28)
[2019-09-23] MEDS ORDERED: Senokot-S Tablet PO PRN (16:35)
[2019-09-23] MEDS ORDERED: MILK OF MAGNESIA 30 ML PO PRN (16:35)
[2019-09-23] MEDS ORDERED: MAALOX ES 30 ML UNIT DOSE PO PRN (16:35)
[2019-09-23 17:40] LABS: Appearance CLEAR (CLEAR); Bilirubin NEGATIVE (NEGATIVE); Blood NEGATIVE Ery/ul (0-5); Glucose NEGATIVE (NEGATIVE); Ketones NEGATIVE (NEGATIVE); Leukocyte Esterase NEGATIVE (NEGATIVE); Nitrite NEGATIVE (NEGATIVE); Protein,Urine Dip NEGATIVE (Negative); Urobilinogen NEGATIVE mg/dL (0-1)
[2019-09-23] MEDS ORDERED: PROVENTIL 2.5 MG/3 ML NEB IH ONE (18:42)
[2019-09-23] MEDS: PROVENTIL 2.5 MG/3 ML NEB IH SCH (18:53)
[2019-09-23] MEDS: Ranexa 500 MG PO SCH (20:45)
[2019-09-23] MEDS: PRADAXA 75 MG PO SCH (20:45)
[2019-09-23] MEDS: ZYLOPRIM 100 MG PO SCH (20:46)
[2019-09-23] MEDS: Lyrica 50MG PO SCH (20:46)
[2019-09-23] MEDS: Apresoline 25 MG TABLET PO SCH (20:47)
[2019-09-23] MEDS: Lantus Insulin SQ SCH (20:47)
[2019-09-23] MEDS ORDERED: DEMADEX 20 MG PO SCH (22:00)
[2019-09-24 03:29] LABS: Risk Ratio 3.2
[2019-09-24] MEDS: PROVENTIL 2.5 MG/3 ML NEB IH SCH ×4 (06:50→20:42)
[2019-09-24] MEDS ORDERED: DUONEB 0.5-3 MG/3 ml Neb IH PRN (07:05)
[2019-09-24] MEDS: HUMALOG SQ SCH ×3 (08:06→16:44)
[2019-09-24] MEDS: Apresoline 25 MG TABLET PO SCH ×3 (09:32→23:02)
[2019-09-24] MEDS: DEMADEX 20 MG PO SCH ×2 (09:32→16:44)
[2019-09-24] MEDS: Ranexa 500 MG PO SCH ×2 (09:32→23:02)
[2019-09-24] MEDS: Lyrica 50MG PO SCH ×2 (09:32→23:02)
[2019-09-24] MEDS: Imdur 30 MG PO SCH (09:33)
[2019-09-24] MEDS: Klor Con 10 MEQ PO SCH (09:33)
[2019-09-24] MEDS: COREG 12.5 MG PO SCH (09:33)
[2019-09-24] MEDS: ZOLOFT 50 MG TABLET PO SCH (09:33)
[2019-09-24] MEDS: Protonix 40MG Tablet PO SCH (09:33)
[2019-09-24] MEDS: Aricept 10 MG PO SCH (09:33)
[2019-09-24] MEDS: Cozaar 50 MG PO SCH (09:33)
[2019-09-24] MEDS: Pepcid 20 MG PO SCH (09:34)
[2019-09-24] MEDS: ZYLOPRIM 100 MG PO SCH ×2 (09:34→23:01)
[2019-09-24] MEDS: ECOTRIN 81 MG PO SCH (09:34)
[2019-09-24] MEDS: Cordarone 200 MG PO SCH (09:34)
[2019-09-24] MEDS: PRADAXA 75 MG PO SCH ×2 (09:34→23:01)
[2019-09-24] MEDS ORDERED: NON-FORMULARY ITEM (Famotidine [Pepcid] 40 MG) PO SCH (10:00)
[2019-09-24] MEDS ORDERED: NON-FORMULARY ITEM (Losartan Potassium [Cozaar] 100 MG) PO SCH (10:00)
[2019-09-24] MEDS ORDERED: NON-FORMULARY ITEM (Aspirin [Aspirin] 81 MG) PO SCH (10:00)
[2019-09-24] MEDS ORDERED: Flovent 110 Mcg MDI IH SCH (10:30)
[2019-09-24] MEDS: TYLENOL 325 MG PO PRN ×3 (10:50→23:01)
[2019-09-24] MEDS: Advair Hfa 115/21 Common canister IH SCH ×2 (11:18→20:45)
[2019-09-24] MEDS: Zofran 4 MG/2 ML VIAL IV PRN (13:54)
[2019-09-24] MEDS ORDERED: Protonix 40MG Tablet PO ONE (18:26)
--- NOTE | 2019-09-24 18:32 | PCM.HP ---
History of Present Illness - Chief Complaint Chief Complaint: ACS History of Present Illness: is a 69 year old female female pt of Dr. Solis who was admitted through ER with CP, rule out AL. She has a hx of asthma, afib, CRF, DM, gout, heart murmur, and ALFRED. She was sitting down yesterday, then had dizziness (vertigo, felt presyncopal) then her chest felt tight centrally (with ratiation to bilateral chest), she became nauseated and vomited. She laid down and the CP increased to 8-9/10 with SOB and diaphoresis. She is a former smoker. Her mother had HTN, CHF, and CABG at age 60. Her brother had CABG at age 65. - Review of Systems Respiratory: Cough (nonproductive), Short Of Breath Cardiac: Chest Pain, Edema (LE, little increased over usual.) Abdominal/Gastrointestinal: Abdominal Pain (epigastric, since yesterday) Neurological: Dizziness (when she first stands) All Other Systems: Reviewed and Negative Medications & Allergies Home Medications: Home Medication List Allopurinol 100 mg [Zyloprim 100 mg] 100 mg PO BID 11/18/18 [History Confirmed 09/23/19] Amiodarone HCl 200 mg [Cordarone 200 MG] 200 mg PO DAILY 11/18/18 [History Confirmed 09/23/19] Aspirin 81 mg PO DAILY 11/18/18 [History Confirmed 09/23/19] Carvedilol 12.5 mg [Coreg 12.5 mg] 12.5 mg PO DAILY 11/18/18 [History Confirmed 09/23/19] Dabigatran Etexilate Mesylate [Pradaxa] 150 mg PO BID 11/18/18 [History Confirmed 09/23/19] HydrALAzine HCL 25 MG TAB [Apresoline 25 MG TABLET] 25 mg PO TID 11/18/18 [History Confirmed 09/23/19] Isosorbide Mononitrate 30 mg [Imdur 30 MG] 30 mg PO DAILY 11/18/18 [History Confirmed 09/23/19] Losartan Potassium [Cozaar] 100 mg PO DAILY 11/18/18 [History Confirmed 09/23/19] PANTOPRAZOLE 40 mg Tablet [Protonix 40MG Tablet] 40 mg PO DAILY 11/18/18 [History Confirmed 09/23/19] Ranolazine [Ranexa] 1,000 mg PO BID 11/18/18 [History Confirmed 09/23/19] Sertraline HCl 50 mg [Zoloft 50 mg Tablet] 50 mg PO DAILY 11/18/18 [History Confirmed 09/23/19] Torsemide 20 mg [Demadex 20 mg] 20 mg PO BID 11/18/18 [History Confirmed 09/23/19] Albuterol/Ipratropium 3ml Neb* [DUONEB 0.5-3 MG/3 ml Neb] 3 ml IH QID PRN PRN 01/02/19 [History Confirmed 09/23/19] Potassium Chloride 10 Meq Tab* [Klor Con 10 MEQ] 10 meq PO DAILY 01/02/19 [History Confirmed 09/23/19] Insulin Glargine [Lantus Insulin] 26 unit SQ QHS 03/23/19 [History Confirmed 09/23/19] Insulin Lispro [Humalog] 14 unit SQ AC 03/23/19 [History Confirmed 09/23/19] Pregabalin 50 mg [Lyrica 50MG] 50 mg PO BID 03/23/19 [History Confirmed 09/23/19] Donepezil HCl 10 mg [Aricept 10 MG] 10 mg PO DAILY 09/23/19 [History Confirmed 09/23/19] Famotidine [Pepcid] 40 mg PO DAILY 09/23/19 [History Confirmed 09/23/19] Allergies/Adverse Reactions: Allergies Allergy/AdvReac Type Severity Reaction Status Date / Time morphine Allergy Severe anaphylaxis Verified 05/17/19 13:18 adhesive Allergy Mild Blisters Verified 03/23/19 17:34 aspirin Allergy Difficulty Verified 03/23/19 17:34 Breathing Penicillins Allergy Rash Verified 03/23/19 17:34 povidone-iodine Allergy BLISTERES Verified 03/23/19 17:34 [From Betadine] soap [From Betadine] Allergy Blisters Verified 03/23/19 17:34 - Past Medical History Past Medical History: Yes Neurological History: No Pertinent History ENT History: No Pertinent History Cardiac History: Congestive Heart Failure, Hypertension, Myocardial Infarction (AL), Other Respiratory History: CHF, COPD Endocrine Medical History: Diabetes Type II Musculoskelatal History: Fractures, Rheumatoid Arthritis GI Medical History: No Pertinent History History: No Pertinent History Pyscho-Social History: No Pertinent History Reproductive Disorders: No Pertinent History Comment: 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 Heart murmur with afib hx. 2-3 dialysis treatments when on vent due to morphine allergy. hx hepatitis A as a child - Female History Are you now?: No - Past Surgical History Past Surgical History: Yes Neuro Surgical History: No Pertinent History Cardiac History: No Pertinent History Respiratory Surgery: No Pertinent History GI Surgical History: Appendectomy Genitourinary Surgical Hx: No Pertinent History Musculskeletal Surgical Hx: Orthopedic Surgery Female Surgical History: Hysterectomy Other Surgical History: Multiple hand surgeries, right knee surgery - Social History Smoking Status: Never smoker How long have you smoked: 1 year Exposure to second hand smoke: No Alcohol: None Drug Use: none Significant Family History: diabetes, hypertension - Physical Exam Vital Signs: Vital Signs - 24 hr Temp Pulse Resp BP Pulse Ox 09/24/19 16:00 97.7 F 59 L 22 121/58 95 09/24/19 14:39 71 26 H 92 L 09/24/19 14:00 92 L 09/24/19 12:30 61 16 96 09/24/19 12:00 97.3 F 60 14 132/59 96 09/24/19 10:00 96 09/24/19 07:36 97.5 F 61 14 121/59 96 09/24/19 06:53 64 20 96 09/24/19 04:00 96 09/24/19 03:54 97.7 F 63 19 129/62 96 09/24/19 00:00 94 L 09/23/19 23:54 98.4 F 63 18 118/38 94 L 09/23/19 20:00 97.6 F 61 18 126/58 98 09/23/19 18:56 57 L 18 97 Oxygen-Last 24 hours Oxygen Flowrate (L/min)-RT 2 Oxygen Flowrate (L/min)-RT 2 General Appearance: no apparent distress, alert, obese Neurologic Exam: oriented x 3, cooperative Eye Exam: eyes nml inspection Ears, Nose, Throat Exam: moist mucous membranes Neck Exam: normal inspection, non-tender, No lymphadenopathy Respiratory Exam: normal breath sounds, lungs clear, No crackles/rales, No rhonchi, No wheezing Cardiovascular Exam: regular rate/rhythm, normal heart sounds, murmur (II/) Gastrointestinal/Abdomen Exam: soft, normal bowel sounds, No tenderness, No distention, No mass, No guarding, No rebound Extremity Exam: normal inspection, No pedal edema, No swelling Skin Exam: normal color, warm, dry, No rash Results - Labs Lab/Micro Results: Accuchecks Date 09/24/19 Date 09/24/19 Date 09/24/19 Time 16:30 Time 11:30 Time 07:30 Accucheck Value: 141 Accucheck Value: 176 Accucheck Value: 150 Accucheck Value: 182 Lab Results-Last 24 Hours 09/23/19 09/23/19 09/23/19 Range/Units 19:17 21:55 Unknown Hemoglobin A1c 6.64 H (4.5-6.0) % Troponin I < 0.012 < 0.012 (0.000-0.034) ng/mL Triglycerides (30-150) mg/dL Cholesterol (50-200) mg/dL LDL Cholesterol (30-100) mg/dL HDL Cholesterol (40-60) mg/dL Heart Disease Risk Ratio 09/24/19 09/24/19 Range/Units 02:43 02:43 Hemoglobin A1c (4.5-6.0) % Troponin I < 0.012 (0.000-0.034) ng/mL Triglycerides 250 H (30-150) mg/dL Cholesterol 157 (50-200) mg/dL LDL Cholesterol 85 (30-100) mg/dL HDL Cholesterol 49 (40-60) mg/dL Heart Disease Risk Ratio 3.2 Accuchecks Date 09/24/19 Date 09/24/19 Date 09/24/19 Time 16:30 Time 11:30 Time 07:30 Accucheck Value: 141 Accucheck Value: 176 Accucheck Value: 150 Accucheck Value: 182 - Radiology Impressions Radiology Exams & Impressions: Radiology Procedures Category Date Time Status CHEST 1 VIEW (PORTABLE) Stat Exams 09/23/19 12:58 Completed - Other Procedures and Tests Respiratory Therapy 09/23/19 18:55 Respiratory Therapy Assessment DAILY 09/23/19 21:32 BiPap/CPAP ROUTINE 09/24/19 06:52 Peak Expiratory Flow Rate ONCE 09/24/19 12:46 RT Miscellaneous Order ROUTINE 09/25/19 05:00 EKG ONCE 09/26/19 05:00 EKG ONCE Assessment/Plan (1) Chest pain Current Visit: Yes Status: Acute Qualifiers: Chest pain type: other chest pain Qualified Code(s): R07.89 - Other chest pain; R07.8 - Other chest pain Assessment & Plan: I really don't think this is cardiac, with her negative troponins and EKG. Code(s): R07.9 - CHEST PAIN, UNSPECIFIED (2) Epigastric pain Current Visit: Yes Status: Acute Assessment & Plan: Try adding 1 more 40mg protonix tonight. If still having pain tomorrow, would CT her chest and abdomen. Code(s): R10.13 - EPIGASTRIC PAIN (3) Diabetes mellitus Current Visit: No Status: Chronic Qualifiers: Diabetes mellitus type: type 2 Diabetes mellitus exterminator helper insulin use: with prison use Diabetes mellitus complication status: with hyperglycemia Qualified Code(s): E11.65 - Type 2 diabetes mellitus with hyperglycemia; Z79.4 - intermediate designer (current) use of insulin Code(s): E11.9 - TYPE 2 DIABETES MELLITUS WITHOUT COMPLICATIONS (4) Essential hypertension Current Visit: No Status: Chronic Code(s): I10 - ESSENTIAL (PRIMARY) HYPERTENSION (5) Paroxysmal atrial fibrillation Current Visit: No Status: Chronic Code(s): I48.0 - PAROXYSMAL ATRIAL FIBRILLATION (6) Renal insufficiency Current Visit: No Status: Chronic
[2019-09-24] MEDS: Lantus Insulin SQ SCH (23:03)
[2019-09-25 06:10] LABS: Hematocrit 35.9 % (35-47); Hemoglobin 11.6 gm/dl (12.0-16.0); Mean Corpuscular Hemoglobin 30.4 pg (26-32); Mean Corpuscular Hgb Concent. 32.3 g/dl (32-36); Platelet Count 146 K/mm3 (150-450); Red Blood Count 3.82 M/mm3 (4.1-5.4); Red Cell Distribution Width 17.3 % (11.5-14.0)
[2019-09-25] MEDS ORDERED: PROVENTIL 2.5 MG/3 ML NEB IH ONE (06:50)
[2019-09-25] MEDS: Advair Hfa 115/21 Common canister IH SCH ×2 (06:59→19:54)
[2019-09-25] MEDS: PROVENTIL 2.5 MG/3 ML NEB IH SCH ×4 (06:59→19:53)
[2019-09-25 07:04] LABS: ALBUMIN 3.1 g/dL (3.5-5.0); ALKALINE PHOSPHATASE 89 U/L (38-126); ANION GAP 9.5 MEQ/L (5-15); BLOOD UREA NITROGEN 20 mg/dL (7-17); CHLORIDE 99 mmol/L (98-107); Calcium 8.6 mg/dL (8.4-10.2); Carbon Dioxide 30 mmol/L (22-30); Creatinine 1 0.87 mg/dL (0.52-1.04); Glucose 183 mg/dL (74-106); Potassium 3.8 mmol/L (3.5-5.1); SGOT/AST 21 U/L (14-36); SGPT/ALT 21 U/L (0-35); SODIUM 135 mmol/L (137-145); Total Protein 5.4 g/dL (6.3-8.2)
[2019-09-25] MEDS: HUMALOG SQ SCH ×3 (08:43→19:59)
[2019-09-25] MEDS: Imdur 30 MG PO SCH (09:54)
[2019-09-25] MEDS: ZOLOFT 50 MG TABLET PO SCH (09:54)
[2019-09-25] MEDS: Cordarone 200 MG PO SCH (09:54)
[2019-09-25] MEDS: PRADAXA 75 MG PO SCH ×2 (09:54→21:49)
[2019-09-25] MEDS: ECOTRIN 81 MG PO SCH (09:54)
[2019-09-25] MEDS: Lyrica 50MG PO SCH ×2 (09:55→21:48)
[2019-09-25] MEDS: Protonix 40MG Tablet PO SCH (09:55)
[2019-09-25] MEDS: Aricept 10 MG PO SCH (09:55)
[2019-09-25] MEDS: ZYLOPRIM 100 MG PO SCH ×2 (09:55→21:48)
[2019-09-25] MEDS: Klor Con 10 MEQ PO SCH (09:55)
[2019-09-25] MEDS: DEMADEX 20 MG PO SCH ×2 (09:55→19:59)
[2019-09-25] MEDS: Pepcid 20 MG PO SCH (09:55)
[2019-09-25] MEDS: Ranexa 500 MG PO SCH ×2 (09:55→21:48)
[2019-09-25] MEDS: COREG 12.5 MG PO SCH (09:55)
[2019-09-25] MEDS: Cozaar 50 MG PO SCH (09:56)
[2019-09-25] MEDS: Apresoline 25 MG TABLET PO SCH ×3 (09:56→21:48)
[2019-09-25] MEDS ORDERED: ENOXAPARIN SODIUM SQ SCH (10:00)
[2019-09-25] MEDS: Zofran 4 MG/2 ML VIAL IV PRN (12:16)
--- NOTE | 2019-09-25 16:50 | PCM.NOTE ---
Date and Time: 09/25/19 1647 Subjective Assessment: Pt still not feeling good, still c/o pain and pressure in epigastrum and inferior substernal area. Just ate lunch when examined. - Review of Systems Constitutional: No Fever Abdominal/Gastrointestinal: Abdominal Pain, No Vomiting Objective Exam General Appearance: no apparent distress, obese Neurologic Exam: oriented x 3, cooperative Skin Exam: normal color, warm, dry, No rash Eye Exam: eyes nml inspection Ears, Nose, Throat Exam: moist mucous membranes Neck Exam: normal inspection Respiratory Exam: normal breath sounds, lungs clear, No crackles/rales, No rhonchi, No wheezing Cardiovascular Exam: regular rate/rhythm, normal heart sounds, No murmur Gastrointestinal/Abdomen Exam: soft, normal bowel sounds, tenderness (epigastrum, LUQ, LLQ), No distention, No mass, No guarding, No rebound Extremity Exam: swelling (trace edema L>R LE) Back Exam: normal inspection, No rash OBJECTIVE DATA Vital Signs: Vital Signs - 24 hr Temp Pulse Resp BP Pulse Ox 09/25/19 14:43 55 L 20 97 09/25/19 12:00 97.8 F 60 20 161/71 98 09/25/19 10:51 59 L 20 97 09/25/19 08:00 97.6 F 59 L 22 130/60 96 09/25/19 07:07 65 22 97 09/25/19 04:00 97.7 F 58 L 18 134/60 98 09/25/19 00:00 97.9 F 57 L 18 148/66 95 09/24/19 20:47 62 22 97 09/24/19 20:00 97.8 F 59 L 18 133/60 98 09/24/19 18:00 95 Oxygen-Last 24 hours Oxygen Flowrate (L/min)-RT 2 Oxygen Flowrate (L/min)-RT 2 Oxygen Flowrate (L/min)-RT 2 Oxygen Flowrate (L/min)-RT 2 Oxygen Flowrate (L/min)-RT 2 Oxygen Flowrate (L/min)-RT 2 Pain Assessment - Last Documented Pain Intensity 5 Pain Scale Used 0-10 Pain Scale Intake and Output: Intake & Output 09/23/19 09/24/19 09/25/19 09/26/19 11:59 11:59 11:59 11:59 Intake Total 1430 1370 Output Total 2600 1150 Balance -1170 220 Weight 121.7 kg 122.7 kg Lab Results: Accuchecks Accucheck Value: 191 Accucheck Value: 128 Lab Results-Last 24 Hours 09/25/19 09/25/19 Range/Units 05:10 05:10 WBC 6.0 (4.0-10.5) K/mm3 RBC 3.82 L (4.1-5.4) M/mm3 Hgb 11.6 L (12.0-16.0) gm/dl Hct 35.9 (35-47) % MCV 94.0 (78-100) fl MCH 30.4 (26-32) pg MCHC 32.3 (32-36) g/dl RDW 17.3 H (11.5-14.0) % Plt Count 146 L (150-450) K/mm3 MPV 12.0 H (7.5-11.0) fl Sodium 135 L (137-145) mmol/L Potassium 3.8 (3.5-5.1) mmol/L Chloride 99 (98-107) mmol/L Carbon Dioxide 30 (22-30) mmol/L Anion Gap 9.5 (5-15) MEQ/L BUN 20 H (7-17) mg/dL Creatinine 0.87 (0.52-1.04) mg/dL Estimated GFR > 60.0 ML/MIN Glucose 183 H (74-106) mg/dL Calcium 8.6 (8.4-10.2) mg/dL Total Bilirubin 0.40 (0.2-1.3) mg/dL AST 21 (14-36) U/L ALT 21 (0-35) U/L Alkaline Phosphatase 89 (38-126) U/L Serum Total Protein 5.4 L (6.3-8.2) g/dL Albumin 3.1 L (3.5-5.0) g/dL Radiology Exams: Radiology Procedures Category Date Time Status ABDOMEN AND PELVIS W CONTRAST [CT] Urgent Exams 09/25/19 16:00 Ordered CHEST WITH CONTRAST [CT] Urgent Exams 09/25/19 16:00 Ordered Multi-Disciplinary Progress Notes: Multi-Disciplinary Progress Notes 09/25/19 15:33 Pharmacy Note by Johnson Oseguera order for Lovenox 40mg. Patient on home med of Pradaxa 150mg po bid. Should not need Lovenox. Initialized on 09/25/19 15:33 - END OF NOTE Assessment/Plan (1) Chest pain Current Visit: Yes Status: Acute Qualifiers: Chest pain type: other chest pain Qualified Code(s): R07.89 - Other chest pain; R07.8 - Other chest pain Assessment & Plan: TX ruled out. CT this afternoon, would like to r/o PE. Code(s): R07.9 - CHEST PAIN, UNSPECIFIED (2) Epigastric pain Current Visit: Yes Status: Acute Assessment & Plan: She has never had dx of hiatal hernia - will do CT abd/pelvis as well today. If nothing apparent on CT, will do EGD on Friday. 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 Will need to continue IV fluids after using dye for CT scans.
[2019-09-25] MEDS: TYLENOL 325 MG PO PRN (21:47)
[2019-09-25] MEDS: Lantus Insulin SQ SCH (21:49)
[2019-09-26] MEDS: PROVENTIL 2.5 MG/3 ML NEB IH SCH ×4 (05:39→19:38)
[2019-09-26] MEDS: Advair Hfa 115/21 Common canister IH SCH ×2 (05:40→19:39)
[2019-09-26 06:25] LABS: Hematocrit 34.9 % (35-47); Mean Cell Volume 95.4 fl (78-100); Mean Corpuscular Hemoglobin 30.1 pg (26-32); Mean Corpuscular Hgb Concent. 31.5 g/dl (32-36); Mean Platelet Volume 11.9 fl (7.5-11.0); Platelet Count 144 K/mm3 (150-450); Red Blood Count 3.66 M/mm3 (4.1-5.4); Red Cell Distribution Width 17.4 % (11.5-14.0)
[2019-09-26 06:49] LABS: ALKALINE PHOSPHATASE 95 U/L (38-126); ANION GAP 8.6 MEQ/L (5-15); BLOOD UREA NITROGEN 20 mg/dL (7-17); CHLORIDE 101 mmol/L (98-107); Calcium 8.7 mg/dL (8.4-10.2); Carbon Dioxide 34 mmol/L (22-30); Creatinine 1 0.97 mg/dL (0.52-1.04); Glucose 122 mg/dL (74-106); Potassium 4.2 mmol/L (3.5-5.1); SGOT/AST 20 U/L (14-36); SGPT/ALT 23 U/L (0-35); SODIUM 139 mmol/L (137-145); Total Protein 5.5 g/dL (6.3-8.2)
[2019-09-26] MEDS ORDERED: Sodium Chloride 0.9% 1000 ML 1,000 ML IV STA (07:20)
--- NOTE | 2019-09-26 07:34 | XRAY ---
Indication: Chest and epigastric pain. Multiple contiguous axial images obtained through the chest using 100 cc Isovue 370 contrast. Comparison: December 16, 2013. Lungs again demonstrate scattered subsegmental atelectasis/scarring bilaterally and tiny posterior left lower lobe calcified granuloma. No suspicious pulmonary mass, infiltrate, or effusion. Heart is not enlarged. Aorta is normal in course and caliber. No pathologic mediastinal/hilar lymphadenopathy. Bony thorax intact with mild degenerative changes throughout the spine. CT abdomen/pelvis reported separately. Impression: 1. Again scattered bilateral subsegmental atelectasis/scarring. 2. No new or acute cardiopulmonary abnormalities. Comment: Preliminary interpretation was made by C. No critical discrepancy.
--- NOTE | 2019-09-26 07:38 | XRAY ---
Indication: Chest and epigastric pain. Multiple contiguous axial images obtained through the abdomen and pelvis using 100 cc Isovue 370 contrast and oral contrast. Comparison: March 23, 2019. CT chest reported separately. Contrasted stomach and bowel loops remain nonobstructed. Stable scattered colonic diverticulosis without diverticulitis. Reported appendectomy and hysterectomy. No free fluid/air. Remaining liver, gallbladder, pancreas, spleen, adrenal glands, kidneys, ureters, and bladder appear unremarkable. Stable mild aortoiliac calcifications. No AAA or pathologic retroperitoneal lymphadenopathy. Osseous structures intact began with mild/moderate degenerative changes throughout the spine. Impression: 1. Again colonic diverticulosis without diverticulitis. 2. Remaining CT abdomen/pelvis with contrast exam is again negative. Comment: Preliminary interpretation was made by [facility]. No critical discrepancy.
[2019-09-26] MEDS: HUMALOG SQ SCH ×3 (08:27→16:46)
[2019-09-26] MEDS: Pepcid 20 MG PO SCH (09:11)
[2019-09-26] MEDS: ECOTRIN 81 MG PO SCH (09:11)
[2019-09-26] MEDS: PRADAXA 75 MG PO SCH (09:12)
[2019-09-26] MEDS: Imdur 30 MG PO SCH (09:12)
[2019-09-26] MEDS: Lyrica 50MG PO SCH ×2 (09:12→21:59)
[2019-09-26] MEDS: Ranexa 500 MG PO SCH ×2 (09:13→21:59)
[2019-09-26] MEDS: Klor Con 10 MEQ PO SCH (09:13)
[2019-09-26] MEDS: Cozaar 50 MG PO SCH (09:13)
[2019-09-26] MEDS: ZOLOFT 50 MG TABLET PO SCH (09:13)
[2019-09-26] MEDS: ZYLOPRIM 100 MG PO SCH ×2 (09:13→21:59)
[2019-09-26] MEDS: Apresoline 25 MG TABLET PO SCH ×3 (09:14→21:59)
[2019-09-26] MEDS: Aricept 10 MG PO SCH (09:14)
[2019-09-26] MEDS: DEMADEX 20 MG PO SCH ×2 (09:14→16:46)
[2019-09-26] MEDS: Cordarone 200 MG PO SCH (09:14)
[2019-09-26] MEDS: Protonix 40MG Tablet PO SCH (09:15)
[2019-09-26] MEDS: COREG 12.5 MG PO SCH (09:15)
[2019-09-26] MEDS: Carafate 1 GM PO SCH ×3 (11:24→21:59)
[2019-09-26] MEDS: TYLENOL 325 MG PO PRN (14:21)
--- NOTE | 2019-09-26 16:19 | PCM.NOTE ---
Date and Time: 09/26/19 1615 Subjective Assessment: Pt is still not feeling well, still having epigastric pain. CT chest, abd, and pelvis with contrast showed nonacute chest, nonacute abd (+diverticulosis, no diverticulitis). - Review of Systems Constitutional: No Fever Abdominal/Gastrointestinal: Abdominal Pain Objective Exam General Appearance: no apparent distress, obese Neurologic Exam: oriented x 3, cooperative Skin Exam: normal color, warm, dry, No rash Eye Exam: eyes nml inspection Ears, Nose, Throat Exam: moist mucous membranes Neck Exam: normal inspection Respiratory Exam: normal breath sounds, lungs clear, No crackles/rales, No rhonchi, No wheezing Cardiovascular Exam: regular rate/rhythm, normal heart sounds, No murmur Gastrointestinal/Abdomen Exam: soft, normal bowel sounds, tenderness (epigastrum, LLQ), No distention, No mass, No guarding, No rebound Extremity Exam: normal inspection, No swelling, No tenderness Back Exam: normal inspection, No rash OBJECTIVE DATA Vital Signs: Vital Signs - 24 hr Temp Pulse Resp BP Pulse Ox 09/26/19 15:15 72 16 94 L 09/26/19 13:00 97 09/26/19 12:00 98.7 F 61 16 136/60 97 09/26/19 10:39 63 18 93 L 09/26/19 09:00 97 09/26/19 08:00 97.7 F 56 L 14 123/59 94 L 09/26/19 05:40 54 L 17 97 09/26/19 04:00 97.7 F 51 L 18 118/57 09/26/19 03:00 95 09/26/19 00:00 97.9 F 61 18 147/66 95 09/25/19 23:00 95 09/25/19 20:00 97.7 F 57 L 18 150/67 94 L 09/25/19 19:57 51 L 22 92 L Oxygen-Last 24 hours Oxygen Flowrate (L/min)-RT 2 Oxygen Flowrate (L/min)-RT 2 Oxygen Flowrate (L/min)-RT 2 Oxygen Flowrate (L/min)-RT 2 Oxygen Flowrate (L/min)-RT 2 Pain Assessment - Last Documented Pain Intensity 4 Pain Scale Used 0-10 Pain Scale Intake and Output: Intake & Output 0609/25/19 09/26/19 09/27/19 11:59 11:59 11:59 11:59 Intake Total 1430 1370 580 Output Total 2600 1150 1100 Balance -1170 220 -520 Weight 121.7 kg 122.7 kg 123.3 kg Lab Results: Accuchecks Accucheck Value: 200 Accucheck Value: 120 Accucheck Value: 147 Accucheck Value: 236 Lab Results-Last 24 Hours 09/26/19 09/26/19 Range/Units 05:45 05:45 WBC 8.0 (4.0-10.5) K/mm3 RBC 3.66 L (4.1-5.4) M/mm3 Hgb 11.0 L (12.0-16.0) gm/dl Hct 34.9 L (35-47) % MCV 95.4 (78-100) fl MCH 30.1 (26-32) pg MCHC 31.5 L (32-36) g/dl RDW 17.4 H (11.5-14.0) % Plt Count 144 L (150-450) K/mm3 MPV 11.9 H (7.5-11.0) fl Sodium 139 (137-145) mmol/L Potassium 4.2 (3.5-5.1) mmol/L Chloride 101 (98-107) mmol/L Carbon Dioxide 34 H (22-30) mmol/L Anion Gap 8.6 (5-15) MEQ/L BUN 20 H (7-17) mg/dL Creatinine 0.97 (0.52-1.04) mg/dL Estimated GFR > 60.0 ML/MIN Glucose 122 H (74-106) mg/dL Calcium 8.7 (8.4-10.2) mg/dL Total Bilirubin 0.40 (0.2-1.3) mg/dL AST 20 (14-36) U/L ALT 23 (0-35) U/L Alkaline Phosphatase 95 (38-126) U/L Serum Total Protein 5.5 L (6.3-8.2) g/dL Albumin 3.0 L (3.5-5.0) g/dL Radiology Exams: Radiology Procedures Category Date Time Status ABDOMEN AND PELVIS W CONTRAST [CT] Urgent Exams 09/25/19 16:00 Completed CHEST WITH CONTRAST [CT] Urgent Exams 09/25/19 16:00 Completed Assessment/Plan (1) Epigastric pain Current Visit: Yes Status: Acute Assessment & Plan: (MS was ruled out initially). Could be gastritis, hiatal hernia - EGD planned for tomorrow (Dr. Shi notified today). Pt already on protonix, so I started her on carafate. Held blood thinners per surgery request. Code(s): R10.13 - EPIGASTRIC PAIN (2) Diabetes mellitus Current Visit: No Status: Chronic Qualifiers: Diabetes mellitus type: type 2 Diabetes mellitus intermediate insulin use: with intermediate use Diabetes mellitus complication status: with hyperglycemia Qualified Code(s): E11.65 - Type 2 diabetes mellitus with hyperglycemia; Z79.4 - jail (current) use of insulin Code(s): E11.9 - TYPE 2 DIABETES MELLITUS WITHOUT COMPLICATIONS (3) Essential hypertension Current Visit: No Status: Chronic Code(s): I10 - ESSENTIAL (PRIMARY) HYPERTENSION (4) Paroxysmal atrial fibrillation Current Visit: No Status: Chronic Code(s): I48.0 - PAROXYSMAL ATRIAL FIBRILLATION (5) Renal insufficiency Current Visit: No Status: Chronic
[2019-09-26] MEDS: Lantus Insulin SQ SCH (22:00)
[2019-09-27 05:20] LABS: Hematocrit 34.7 % (35-47); Hemoglobin 10.8 gm/dl (12.0-16.0); Mean Cell Volume 95.9 fl (78-100); Mean Corpuscular Hemoglobin 29.8 pg (26-32); Mean Corpuscular Hgb Concent. 31.1 g/dl (32-36); Mean Platelet Volume 11.7 fl (7.5-11.0); Platelet Count 137 K/mm3 (150-450); Red Blood Count 3.62 M/mm3 (4.1-5.4); Red Cell Distribution Width 18.1 % (11.5-14.0); White Blood Count 11.6 K/mm3 (4.0-10.5)
[2019-09-27 05:40] LABS: ALBUMIN 3.1 g/dL (3.5-5.0); ANION GAP 8.8 MEQ/L (5-15); BILIRUBIN,TOTAL 0.7 mg/dL (0.2-1.3); Calcium 8.1 mg/dL (8.4-10.2); Creatinine 1 1.2 mg/dL (0.52-1.04); Potassium 4.6 mmol/L (3.5-5.1); Total Protein 5.7 g/dL (6.3-8.2)
[2019-09-27] MEDS: PROVENTIL 2.5 MG/3 ML NEB IH SCH ×4 (06:03→19:22)
[2019-09-27] MEDS: Advair Hfa 115/21 Common canister IH SCH ×2 (06:04→19:23)
[2019-09-27] MEDS: Carafate 1 GM PO SCH ×5 (07:51→21:18)
[2019-09-27] MEDS: HUMALOG SQ SCH ×3 (07:55→17:46)
[2019-09-27] MEDS: Ranexa 500 MG PO SCH ×2 (08:50→21:18)
[2019-09-27] MEDS: Cordarone 200 MG PO SCH (08:51)
[2019-09-27] MEDS: ZOLOFT 50 MG TABLET PO SCH (08:51)
[2019-09-27] MEDS: Pepcid 20 MG PO SCH (08:51)
[2019-09-27] MEDS: Aricept 10 MG PO SCH (08:51)
[2019-09-27] MEDS: DEMADEX 20 MG PO SCH ×2 (08:51→16:57)
[2019-09-27] MEDS: ZYLOPRIM 100 MG PO SCH ×2 (08:52→21:18)
[2019-09-27] MEDS: Apresoline 25 MG TABLET PO SCH ×3 (08:52→21:19)
[2019-09-27] MEDS: Lyrica 50MG PO SCH ×2 (08:52→21:18)
[2019-09-27] MEDS: Cozaar 50 MG PO SCH (08:52)
[2019-09-27] MEDS: Klor Con 10 MEQ PO SCH (08:52)
[2019-09-27] MEDS: COREG 12.5 MG PO SCH (08:52)
[2019-09-27] MEDS: Protonix 40MG Tablet PO SCH (08:52)
[2019-09-27] MEDS: Imdur 30 MG PO SCH (08:52)
[2019-09-27] MEDS ORDERED: Lactated Ringers 1,000 ML IV SCH (10:30)
[2019-09-27] MEDS ORDERED: Ketamine HCl 50 MG/ML ONE (14:27)
[2019-09-27] MEDS ORDERED: DIPRIVAN 200 MG/20 ML IV ONE (14:27)
[2019-09-27] MEDS: Zofran 4 MG/2 ML VIAL IV PRN (15:31)
[2019-09-27] MEDS: Lantus Insulin SQ SCH (21:18)
[2019-09-27] MEDS: TYLENOL 325 MG PO PRN (21:20)
--- NOTE | 2019-09-27 22:14 | PCM.NOTE ---
Date and Time: 09/27/192213 Subjective Assessment: 69 yr old female seen and examined today. Patient reports her chest pain is still present in a band like pattern across her chest. She reports that she has been nauseated and has had dark stools. She has R sided foot neuropathy. She gets extremely SOB with ambulation and has been requiring portable oxygen due to desaturations. Patient does have swelling in her legs. She is NPO and scheduled for her scopes today with Dr Cristina. - Review of Systems Constitutional: Weakness, No Fever, No Chills Eyes: No Symptoms Ears, Nose, & Throat: No Symptoms Respiratory: Short Of Breath, Other (Requiring oxygen), No Cough, No Wheezing Cardiac: Chest Pain, Edema Abdominal/Gastrointestinal: Nausea, Melena, No Abdominal Pain, No Vomiting, No Diarrhea, No Constipation Genitourinary Symptoms: No Symptoms, Flank Pain Musculoskeletal: Other (Foot fx ) Neurological: Parasthesia Psychological: Anxiety, Depression Objective Exam General Appearance: mild distress, obese (BMI is 58), No anxiety Neurologic Exam: alert, oriented x 3, cooperative, depressed mood/affect, other (R foot neuropathy), No disoriented, No confusion, No agitation Skin Exam: normal color, warm, dry, No rash Neck Exam: normal inspection Respiratory Exam: diminished breath sounds, No crackles/rales, No wheezing Cardiovascular Exam: regular rate/rhythm, normal heart sounds, murmur, No friction rub, No gallop Gastrointestinal/Abdomen Exam: soft, normal bowel sounds, No tenderness Extremity Exam: normal inspection, pedal edema, swelling, tenderness (L foot), other (Healing L foot fx) Pelvic Exam: deferred Rectal Exam: deferred OBJECTIVE DATA Vital Signs: Vital Signs - 24 hr Temp Pulse Resp BP Pulse Ox 09/27/19 20:00 97.8 F 69 20 130/58 93 L 09/27/19 19:29 69 18 93 L 09/27/19 18:00 93 L 09/27/19 16:00 98.2 F 60 19 136/61 93 L 09/27/19 14:00 91 L 09/27/19 12:00 98.2 F 59 L 18 116/56 91 L 09/27/19 10:32 62 18 93 L 09/27/19 10:00 93 L 09/27/19 08:36 98.7 F 67 16 136/61 93 L 09/27/19 07:33 98.7 F 67 16 136/61 93 L 09/27/19 06:05 71 20 89 L 09/27/19 04:00 99.8 F 76 20 139/60 94 L 09/27/19 03:00 95 09/27/19 00:00 98.4 F 72 20 127/60 92 L 09/26/19 23:00 94 L Oxygen-Last 24 hours Oxygen Flowrate (L/min)-RT 2 Oxygen Flowrate (L/min)-RT 2 Oxygen Flowrate (L/min)-RT 2 Oxygen Flowrate (L/min)-RT 2 Oxygen Flowrate (L/min)-RT 2 Oxygen Flowrate (L/min)-RT 2 Oxygen Flowrate (L/min)-RT 2 Pain Assessment - Last Documented Pain Intensity 7 Pain Scale Used 0-10 Pain Scale Intake and Output: Intake & Output 09/25/19 09/26/19 09/27/19 09/28/19 11:59 11:59 11:59 11:59 Intake Total 1355 214 2913 59 Output Total 1150 1100 300 Balance 220 -520 1073 59 Weight 122.7 kg 123.3 kg 123 kg Lab Results: Accuchecks Date 09/27/19 Time 16:49 Accucheck Value: 184 Accucheck Value: 168 Accucheck Value: 159 Lab Results-Last 24 Hours 09/27/19 09/27/19 Range/Units 05:00 05:00 WBC 11.6 H (4.0-10.5) K/mm3 RBC 3.62 L (4.1-5.4) M/mm3 Hgb 10.8 L (12.0-16.0) gm/dl Hct 34.7 L (35-47) % MCV 95.9 (78-100) fl MCH 29.8 (26-32) pg MCHC 31.1 L (32-36) g/dl RDW 18.1 H (11.5-14.0) % Plt Count 137 L (150-450) K/mm3 MPV 11.7 H (7.5-11.0) fl Sodium 137 (137-145) mmol/L Potassium 4.6 (3.5-5.1) mmol/L Chloride 100 (98-107) mmol/L Carbon Dioxide 33 H (22-30) mmol/L Anion Gap 8.8 (5-15) MEQ/L BUN 26 H (7-17) mg/dL Creatinine 1.20 H (0.52-1.04) mg/dL Estimated GFR 47.2 ML/MIN Glucose 173 H (74-106) mg/dL Calcium 8.1 L (8.4-10.2) mg/dL Total Bilirubin 0.70 (0.2-1.3) mg/dL AST 22 (14-36) U/L ALT 23 (0-35) U/L Alkaline Phosphatase 87 (38-126) U/L Serum Total Protein 5.7 L (6.3-8.2) g/dL Albumin 3.1 L (3.5-5.0) g/dL Multi-Disciplinary Progress Notes: Multi-Disciplinary Progress Notes 09/27/19 11:15 Case Management Note by Radha Grullon PATIENT PLANS TO RETURN HOME TO PER PRIOR LEVEL OF FUNCTIONING WITH HER DAUGHTER. PATIENT MAY NEED QUALIFIED FOR HOME OXYGEN AT TIME OF DC D/T CURRENTLY ON OXYGEN. PATIENT HAS HOME HEALTHCARE THRU [facility]. Initialized on 09/27/19 11:15 - END OF NOTE Assessment/Plan (1) Chest pain Status: Acute Assessment & Plan: Patient was admitted for ACS rule out. She had neg trops and her ekgs were normal. Patient does have a hx of paroxysmal afib and her symptoms sound like an acute onset that resolved. She continues to have a band like pain across her chest. She may need stress test or cardiac cath to evaluate CAD Code(s): R07.9 - CHEST PAIN, UNSPECIFIED (2) CHF (congestive heart failure) Status: Acute Assessment & Plan: Patient does have hx of CHF and has lower extremity edema. She has been SOB to the point she is requiring oxygen with ambulation. Will continue her routine meds and Dr Reinoso was consulted to help manage as well as patient has ERNIE and is on torsemide Code(s): I50.9 - HEART FAILURE, UNSPECIFIED (3) Epigastric pain Status: Acute Assessment & Plan: Patient was admitted for chest pain rule out. She continued to have pain and neg ACS workup. The plan was then to eliminate esophagitis or other etiology as potential cause for the pain. She was scheduled with Dr Cristina for the scopes Code(s): R10.13 - EPIGASTRIC PAIN (4) Chronic obstructive lung disease Status: Chronic Assessment & Plan: Patient is requiring oxygen now with ambulation due to desaturations. 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 Will discharge patient home on her regular DM regimen Code(s): E11.9 - TYPE 2 DIABETES MELLITUS WITHOUT COMPLICATIONS (6) Weakness Status: Chronic Assessment & Plan: Patient is getting PT in hospital and will need to continue this at home. Code(s): R53.1 - WEAKNESS (7) Acute kidney injury superimposed on CKD Status: Acute Assessment & Plan: Dr Reinoso was consulted to help comanage. Patient was given IV fluids following her CT to avoid contrast induced nephropathy. Code(s): N17.9 - ACUTE KIDNEY FAILURE, UNSPECIFIED; N18.9 - CHRONIC KIDNEY DISEASE, UNSPECIFIED
[2019-09-28 05:18] LABS: Hematocrit 33.9 % (35-47); Hemoglobin 10.7 gm/dl (12.0-16.0); Mean Cell Volume 95.5 fl (78-100); Mean Corpuscular Hemoglobin 30.1 pg (26-32); Mean Corpuscular Hgb Concent. 31.6 g/dl (32-36); Mean Platelet Volume 11.7 fl (7.5-11.0); Platelet Count 138 K/mm3 (150-450); Red Blood Count 3.55 M/mm3 (4.1-5.4); Red Cell Distribution Width 18.2 % (11.5-14.0); White Blood Count 11.6 K/mm3 (4.0-10.5)
[2019-09-28 05:45] LABS: ALBUMIN 3.2 g/dL (3.5-5.0); ANION GAP 8.7 MEQ/L (5-15); BILIRUBIN,TOTAL 1.2 mg/dL (0.2-1.3); Calcium 8.6 mg/dL (8.4-10.2); Creatinine 1 1.15 mg/dL (0.52-1.04); Potassium 4.2 mmol/L (3.5-5.1)
[2019-09-28] MEDS: PROVENTIL 2.5 MG/3 ML NEB IH SCH ×3 (07:30→14:31)
[2019-09-28] MEDS: Carafate 1 GM PO SCH ×2 (07:44→11:53)
[2019-09-28] MEDS: HUMALOG SQ SCH ×2 (07:45→11:53)
--- NOTE | 2019-09-28 08:55 | CONS ---
CONSULT DATE: 09/27/2019 This patient was seen apparently Dr. Jerome Shi was consulted over the weekend and asked that I see the patient since I was doing some outpatient cases today. HISTORY: A 69 year old female with chest pain, ruled out myocardial infarction. She had some epigastric and some vague upper abdominal discomfort. She had a hemoglobin of 10.9. She has remote history of morbid obesity, asthma, atrial fibrillation, chronic renal insufficiency, diabetes, gout, obstructive sleep apnea. She had some vertigo recently prior to the admission. PAST MEDICAL HISTORY: Significant for obesity, chronic heart and lung disease, diabetes, obesity. 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 PAST SURGICAL HISTORY: Appendectomy. Hysterectomy. She might have had in the past. She has had some extremity surgeries for some nodules or lesions in the past. Right knee surgery. MEDICATIONS: Albuterol inhaler, aspirin, carvedilol. She had been on Pradaxa in the past which has been held since the . She has been on hydralazine, isosorbide mononitrate, losartan, pantoprazole, Ranexa, Sertraline, torsemide, Albuterol, ipratropium, potassium chloride, Humalog as well as Lyrica, Aricept and Pepcid. ALLERGIES: PENICILLIN. ASPIRIN. MORPHINE. PVOIDONE-IODINE (BLISTERS). ADHESIVE. FAMILY HISTORY: Hypertension, heart disease. SOCIAL HISTORY: Former smoker. No smoking currently. No alcohol abuse. REVIEW OF SYSTEMS: Fourteen systems reviewed pertinent for as noted above admission assessment. No chest pain or palpitations. Other systems negative or noncontributory as above and per preadmission questionnaire. Morbid obesity, multiple medical problems as noted above. LAB DATA AND TESTS: Her white count was 11, hemoglobin 10.8 or 10.9, PLT 137,000. Liver function tests fairly unremarkable. Total bilirubin 0.4. PHYSICAL EXAMINATION: Vital signs are stable. GENERAL: A chronically ill female. HEENT: Sclera nonicteric. NECK: No JVD. CHEST: Equal excursion, nonlabored breathing. CVS: Regular rate and rhythm. ABDOMEN: Obese, soft, some mild tenderness epigastrium. No peritoneal signs. EXTREMITIES: No cyanosis. NEURO: Alert, moving extremities symmetrically. IMPRESSION: Some vague epigastric pain unclear etiology, upper abdominal aches. CT scan showed some diverticulosis otherwise no acute process. No evidence of any acute diverticulitis. Otherwise she is afebrile, nontoxic. I feel she would benefit from upper endoscopy to evaluate for gastritis, peptic ulcer disease or other etiology. I was asked to see the patient for Dr. Shi who was consulted. Otherwise will proceed with EGD possible biopsy. General risks of bleeding or infection, risk of bowel injury or perforation possibly requiring open procedure, risk of missed or nondiagnosis or incomplete exam possibly requiring barium swallow, other studies or procedures, possibility of inability to diagnose the etiology of her symptoms. She understands and agrees to the planned procedure and will proceed with EGD possible biopsy when OR time available later today.
--- NOTE | 2019-09-28 10:45 | OP ---
SURGERY DATE/TIME: 09/27/2019 1426 PREOPERATIVE DIAGNOSIS: Some epigastric pain unclear etiology. POSTOPERATIVE DIAGNOSIS: Erosive gastritis. PROCEDURES: 1) EGD with cold biopsy of small bowel for celiac sprue. 2) Cold biopsy of antrum to evaluate for H. pylori. 3) Random cold biopsies distal esophagus to evaluate for other etiology. SURGEON: Dr. Elliott Price. ANESTHESIA: MAC. ESTIMATED BLOOD LOSS: Minimal. INDICATIONS: As noted above. Risks and benefits explained in detail and not limited to and consent obtained. She held her Pradaxa for several days. I felt she could proceed with upper endoscopy. Risks and benefits explained in detail prior to the procedure including but not limited to bleeding or infection, risk of bowel injury or perforation but not limited to, risk of missed or nondiagnosis, consent had been obtained. DESCRIPTION OF PROCEDURE AND FINDINGS: The patient is taken to the operating room. MAC anesthesia induced. After official time out and no disagreement with planned procedure, a bite block positioned. Video gastroscope easily passed down the proximal esophagus through the gastroesophageal junction through the patent pylorus to the junction of the second and third portion of the duodenum fairly unremarkable but given her symptom complaints cold biopsy taken of small bowel for celiac sprue. Good hemostasis noted. The scope was then pulled back to the stomach. She definitely had some gastritis with some erosions. There was nothing deep enough to call a linda ulcer at this time but she did have some erosive gastritis. Cold biopsy taken to evaluate for Helicobacter pylori in the antrum. Good hemostasis noted. On retroflex the gastroesophageal junction seemed to be fairly snug against the scope. There did not appear to be any large hiatal hernia. The scope straightened and pulled back. Gastroesophageal junction noted about 36 cm. Z-line was fairly smooth but given her symptom complaints random cold biopsies of distal esophagus was accomplished to evaluate for eosinophilic esophagitis or other etiology. There was no linda Rosas's, no linda significant erosive esophagitis on endoscopic exam. The scope was slowly and carefully withdrawn. No signs of any other mucosal lesions on withdrawal of the scope. The patient tolerated the procedure well. Findings discussed with the family out in the waiting area.
[2019-09-28] MEDS: Ranexa 500 MG PO SCH (10:54)
[2019-09-28] MEDS: Cozaar 50 MG PO SCH (10:54)
[2019-09-28] MEDS: Protonix 40MG Tablet PO SCH (10:54)
[2019-09-28] MEDS: Aricept 10 MG PO SCH (10:54)
[2019-09-28] MEDS: Cordarone 200 MG PO SCH (10:54)
[2019-09-28] MEDS: Pepcid 20 MG PO SCH (10:54)
[2019-09-28] MEDS: Apresoline 25 MG TABLET PO SCH ×2 (10:54→15:52)
[2019-09-28] MEDS: COREG 12.5 MG PO SCH (10:55)
[2019-09-28] MEDS: Klor Con 10 MEQ PO SCH (10:55)
[2019-09-28] MEDS: Lyrica 50MG PO SCH (10:55)
[2019-09-28] MEDS: Imdur 30 MG PO SCH (10:55)
[2019-09-28] MEDS: DEMADEX 20 MG PO SCH (10:55)
[2019-09-28] MEDS: ZOLOFT 50 MG TABLET PO SCH (10:55)
[2019-09-28] MEDS: ZYLOPRIM 100 MG PO SCH (10:55)
[2019-09-28] MEDS: TYLENOL 325 MG PO PRN (11:59)
--- NOTE | 2019-09-28 15:01 | XRAY ---
Indication: Elevated WBC. Comparison: September 22. Portable chest demonstrates new bilateral perihilar interstitial alveolar opacities without consolidation/large effusion. Stable left midlung discoid atelectasis/scarring with new focus right midlung. Heart is not enlarged.
[2019-09-28 15:47] LABS: Appearance SLIGHTLY CLOUDY (CLEAR); Bilirubin NEGATIVE (NEGATIVE); Blood NEGATIVE Ery/ul (0-5); Epithelial Cells RARE /HPF (FEW); Glucose NEGATIVE (NEGATIVE); Ketones NEGATIVE (NEGATIVE); Leukocyte Esterase NEGATIVE (NEGATIVE); Mucus SLIGHT /HPF (NEGATIVE); Nitrite NEGATIVE (NEGATIVE); Protein,Urine Dip NEGATIVE (Negative); Specific Gravity 1.012 (1.005-1.025); Urobilinogen NEGATIVE mg/dL (0-1)
[2019-09-28 17:29] VITALS: BP 114/57; PULSE 57; O2SAT 94
[2019-10-04] MEDS ORDERED: ECOTRIN 81 MG PO SCH (10:00)
--- NOTE | 2019-10-17 16:03 | PCM.DS ---
Discharge Summary Date of Admission: 09/25/19 12:00 Date of Discharge: 09/28/2019 Admitting Physician: AMANDEEP SIEGEL Consults: Consults on Case 09/26/19 08:04 Consult Surgery ROUTINE Primary Care Provider: LUIS SOLIS INDER Allergies Allergies morphine Allergy (Severe, Verified 05/17/19 13:18) anaphylaxis pt went into respiratory failure and acute renal failure the last time she had morphine. "I was in a coma for a week" adhesive Allergy (Mild, Verified 03/23/19 17:34) Blisters aspirin Allergy (Verified 03/23/19 17:34) Difficulty Breathing PT STATES THAT SHE CAN TAKE ASPIRIN 81 MG BUT NOTHING HIGHER IN DOSE. Penicillins Allergy (Verified 03/23/19 17:34) Rash povidone-iodine [From Betadine] Allergy (Verified 03/23/19 17:34) BLISTERES soap [From Betadine] Allergy (Verified 03/23/19 17:34) Blisters Hospital Summary - Hospital Course Hospital Course: is a 69 year old female female pt of Dr. Solis who was admitted through ER with CP, rule out ID. She has a hx of asthma, afib, CRF, DM, gout, heart murmur, and ALFRED. She was sitting down yesterday, then had dizziness (vertigo, felt presyncopal) then her chest felt tight centrally (with radiation to bilateral chest), she became nauseated and vomited. She laid down and the CP increased to 8-9/10 with SOB and diaphoresis. She is a former smoker. Her mother had HTN, CHF, and CABG at age 60. Her brother had CABG at age 65. Trops and EKG were trended and ACS was ruled out. Patient was taken to OR for EGD whic h showed that she did have erosive esophagitis. She had been started on protonix and carafate prior to the procedure. Patient also had ERNIE on CKD. Dr Raza was consulted and we will follow his recs. Patient was have SOB that required her to have portable oxygen with ambulation during her hospital stay so she will need to go home on oxygen. She will be going home with her daughter and having home health. - Vitals & Intake/Output Vital Signs: Vital Signs Temperature 98.2 F 09/28/19 16:00 Pulse Rate 57 L 06/23/20 16:00 Respiratory Rate 20 09/28/19 16:00 Blood Pressure 114/57 09/28/19 16:00 O2 Sat by Pulse Oximetry 94 L 09/28/19 16:00 - Lab Result Diagrams: 09/28/19 05:05 09/28/19 05:05 - Procedures and Test Procedures and Tests throughout Hospitalization: Therapy Orders & Screens 09/23/19 16:35 EKG Q8HX2,QAMX3,PRN Comment: 09/23/19 17:32 RT Screen per Nursing Assess ONCE Comment: Protocol Order Physician Instructions: Greater than 3 points order RT Admission Screen Reason For Exam: Triggered on Admission Diagnosis: ACS Diagnosis: ACS Pneumonia: No Home O2: Yes Asthma: No CHF: No Home CPAP/BIPAP: Yes Home Nebs/MDI: Yes Total Points: 15 09/23/19 18:55 Respiratory Therapy Assessment DAILY Comment: Diagnosis: ACS 09/23/19 21:00 EKG ONCE Comment: Diagnosis: ACS 09/23/19 21:32 BiPap/CPAP ROUTINE Comment: Diagnosis: ACS 09/24/19 05:00 EKG ONCE Comment: Diagnosis: ACS 09/24/19 06:52 Peak Expiratory Flow Rate ONCE Comment: Reason For Exam: Diagnosis: ACS 09/24/19 12:46 RT Miscellaneous Order ROUTINE Comment: Physician Instructions: Reason For Exam: QUALIFY PATIENT FOR HOME OXYGEN Diagnosis: ACS 09/24/19 20:46 Oxygen Nasal Cannula 2 lpm Comment: Diagnosis: ACS 09/25/19 05:00 EKG ONCE Comment: Diagnosis: ACS 09/26/19 05:00 EKG ONCE Comment: Diagnosis: ACS 09/28/19 08:43 RT Miscellaneous Order ROUTINE Comment: Physician Instructions: Reason For Exam: SEE IF PATIENGT QUALIFIES FOR HOME OXYGEN Diagnosis: EPIGASTRIC PAIN Discharge Exam General Appearance: mild distress Neurologic Exam: alert, oriented x 3, cooperative, normal mood/affect, No disoriented, No confusion, No agitation Eye Exam: eyes nml inspection Respiratory Exam: diminished breath sounds, No respiratory distress, No accessory muscle use, No wheezing Cardiovascular Exam: regular rate/rhythm, normal heart sounds, No murmur, No friction rub, No gallop Gastrointestinal/Abdomen Exam: soft, normal bowel sounds, tenderness (epigastric), No distention Pelvic Exam: deferred Rectal Exam: deferred Back Exam: normal inspection Extremity Exam: pedal edema, swelling Skin Exam: normal color, warm, dry, No rash Final Diagnosis/Problem List - Final Discharge Diagnosis/Problem (1) Chest pain Status: Acute Assessment & Plan: Trops and EKG were neg indicating not ACS. Patient had EGD that showed erosive esophagitis. She was started on protonix and carafate and will be discharged home on this medication Code(s): R07.9 - CHEST PAIN, UNSPECIFIED (2) CHF (congestive heart failure) Status: Acute Assessment & Plan: Hx of chf and patient does have torsemide. It could be contributing to her shortness of breath. She will need oxygen at home due to desaturations with ambulating. Code(s): I50.9 - HEART FAILURE, UNSPECIFIED (3) Epigastric pain Status: Acute Assessment & Plan: Patient had erosive eosphagitis. Will go home on protonix and carafate. Code(s): R10.13 - EPIGASTRIC PAIN (4) Chronic obstructive lung disease Status: Chronic Assessment & Plan: Patient has hx of COPD and has become more short of breath with ambulation. She will need home O2. Will continue her routine home meds. Code(s): J44.9 - CHRONIC OBSTRUCTIVE PULMONARY DISEASE, UNSPECIFIED (5) Diabetes mellitus Status: Chronic Assessment & Plan: Patient will continue on routine meds Code(s): E11.9 - TYPE 2 DIABETES MELLITUS WITHOUT COMPLICATIONS (6) Weakness Status: Chronic Assessment & Plan: Patient will require home health with PT at home for improved strength Code(s): R53.1 - WEAKNESS (7) Acute kidney injury superimposed on CKD Status: Acute Assessment & Plan: Dr Walker is co managing. We will follow his recs. BMP looked improved today. Code(s): N17.9 - ACUTE KIDNEY FAILURE, UNSPECIFIED; N18.9 - CHRONIC KIDNEY DISEASE, UNSPECIFIED - Discharge Disposition: Home Health @ [facility] Condition: Stable Prescriptions: New Sucralfate 1 gm [Carafate 1 GM] 1 g PO ACHS #120 tablet Continue HydrALAzine HCL 25 MG TAB [Apresoline 25 MG TABLET] 25 mg PO TID Torsemide 20 mg [Demadex 20 mg] 20 mg PO BID Allopurinol 100 mg [Zyloprim 100 mg] 100 mg PO BID Dabigatran Etexilate Mesylate [Pradaxa] 150 mg PO BID Ranolazine [Ranexa] 1,000 mg PO BID Sertraline HCl 50 mg [Zoloft 50 mg Tablet] 50 mg PO DAILY Losartan Potassium [Cozaar] 100 mg PO DAILY Isosorbide Mononitrate 30 mg [Imdur 30 MG] 30 mg PO DAILY Carvedilol 12.5 mg [Coreg 12.5 mg] 12.5 mg PO DAILY Amiodarone HCl 200 mg [Cordarone 200 MG] 200 mg PO DAILY PANTOPRAZOLE 40 mg Tablet [Protonix 40MG Tablet] 40 mg PO DAILY Aspirin 81 mg PO DAILY Potassium Chloride 10 Meq Tab* [Klor Con 10 MEQ] 10 meq PO DAILY Albuterol/Ipratropium 3ml Neb* [DUONEB 0.5-3 MG/3 ml Neb] 3 ml IH QID PRN PRN PRN Reason: Shortness Of Breath/Wheezing Pregabalin 50 mg [Lyrica 50MG] 50 mg PO BID Insulin Lispro [Humalog] 14 unit SQ AC Insulin Glargine [Lantus Insulin] 26 unit SQ QHS Famotidine [Pepcid] 40 mg PO DAILY Donepezil HCl 10 mg [Aricept 10 MG] 10 mg PO DAILY Instructions: Gastritis Additional Instructions: WEAR 3L/NC DURING THE DAY, RESUME YOUR NORMAL CPAP REGIMEN AT N[facility] WILL BE IN CONTACT TO SET THE HOME OXYGEN UP. THEIR PHONE NUMBER IS [phone] Follow up with: DEAN WALKER [CONSULTING PHYSICIAN] - 10/07/19 1:00 pm AMANDEEP SIEGEL [ACTIVE STAFF] - 10/11/19 10:15 am
== END 2019-09-28 17:14 | disposition home health service (06) | DRG 313 ==
LOC: ED 12:53 → MED SURG 16:33 → OBSVTOIN 09-25 12:00
PROVIDERS: ADMIT Family Medicine; ATTEND Family Medicine
PROC: 0DD58ZX Extraction of Esophagus, Via Natural or Artificial Opening Endoscopic, Diagnostic (ICD-10-PCS; principal; 2019-09-27)
PROC: 0DB68ZX Excision of Stomach, Via Natural or Artificial Opening Endoscopic, Diagnostic (ICD-10-PCS; 2019-09-27)
DX: R07.9 Chest pain, unspecified (principal); R10.13 Epigastric pain; K29.70 Gastritis, unspecified, without bleeding; E11.9 Type 2 diabetes mellitus without complications; G47.33 Obstructive sleep apnea (adult) (pediatric); M10.9 Gout, unspecified; R42 Dizziness and giddiness; R11.2 Nausea with vomiting, unspecified; I10 Essential (primary) hypertension; J44.9 Chronic obstructive pulmonary disease, unspecified; M06.9 Rheumatoid arthritis, unspecified; I48.0 Paroxysmal atrial fibrillation; N28.9 Disorder of kidney and ureter, unspecified; Z79.899 Other long term (current) drug therapy; I25.2 Old myocardial infarction; Z79.01 Long term (current) use of anticoagulants
CPT/HCPCS: 36000; 36415; 43239; 71045; 71260; 74177; 80053; 80061; 81001; 82962; 83036; 83721; 83735; 83880; 84484; 85025; 85027; 93005; 93041; 93268; 94003; 94150; 94640; 94660; 94760; 99285; G0378; 99100; J1817; J2405; J2704; J7609; A9270-GY

== ENCOUNTER 2019-11-03 03:50 | Observation (INO) | payer MEDICARE, BC ==
[2019-11-03] MEDS ORDERED: TYLENOL 325 MG PO ONE (04:01)
[2019-11-03] MEDS ORDERED: TYLENOL 325 MG ONE (04:28)
[2019-11-03 04:39] LABS: Absolute Neutrophil Ct (ANC) 3.53 (1.4-6.9); BASOPHIL % 0.1 % (0.0-0.4); Basophil (Absolute #) 0.01 (0-0.4); Eosinophil % 0.8 % (0.00-5.0); Eosinophil (Absolute #) 0.06 (0-0.5); Hematocrit 41.8 % (35-47); Hemoglobin 13.5 gm/dl (12.0-16.0); Lymphocyte (Absolute #) 2.63 (1.0-4.6); Lymphocytes % 37.3 % (24.0-44.0); Mean Cell Volume 95.2 fl (78-100); Mean Corpuscular Hemoglobin 30.8 pg (26-32); Mean Corpuscular Hgb Concent. 32.3 g/dl (32-36); Mean Platelet Volume 11.8 fl (7.5-11.0); Monocyte (Absolute #) 0.83 (0.0-1.3); Monocytes % 11.8 % (0.0-12.0); Platelet Count 182 K/mm3 (150-450); Red Blood Count 4.39 M/mm3 (4.1-5.4); Red Cell Distribution Width 17.3 % (11.5-14.0); White Blood Count 7.1 K/mm3 (4.0-10.5)
--- NOTE | 2019-11-03 04:52 | ERPHSYRPT ---
- History of Present Illness Time Seen by Provider: 11/03/19 04:00 Source: patient Exam Limitations: no limitations Patient Subjective Stated Complaint: pt states her knee gave out on her and she fell forward onto her rt knee. denies pain elsewhere. Triage Nursing Assessment: pt alert and oriented, answers questions approp. pt arrive per ambulance, transfers to stretcher with total assist of 3. respirations nonlabored with lungs cta. tenderness to rt knee with light palpation. pt states she was able to ambulate to bathroom but felt like her knee was going to give out again. Physician History: Patient is a 69-year-old female presents to our ED via EMS for evaluation of right knee pain. Patient states that her right knee has been buckling for approximately 1 to 2 weeks. Patient states she tends to catch herself and avoids a fall. However today, just prior to arrival patient was walking to her bathroom her right knee buckled and patient fell. Patient required assistance to stand up. However she was ambulatory thereafter. Patient was ambulating with a mild antalgic gait pattern. No other injuries. The fall was not associated with any neuro cardiovascular symptomology. No chest pain or shortness of breath. No nausea vomiting or diaphoresis. Focal or lateralizing weakness. Patient voices no other complaints at this time. Method of Injury: fell Occurred: just prior to arrival Quality: intermittent Severity of Pain-Max: moderate Severity of Pain-Current: mild Lower Extremities Pain: knee: right Modifying Factors: Improves With: nothing Associated Symptoms: none, No dizzy, No fainted, No seizure, No snapping sensation, No popping sensation Allergies/Adverse Reactions: morphine Allergy (Severe, Verified 11/03/19 04:25) anaphylaxis pt went into respiratory failure and acute renal failure the last time she had morphine. "I was in a coma for a week" adhesive Allergy (Mild, Verified 11/03/19 04:25) Blisters aspirin Allergy (Verified 11/03/19 04:25) Difficulty Breathing PT STATES THAT SHE CAN TAKE ASPIRIN 81 MG BUT NOTHING HIGHER IN DOSE. Penicillins Allergy (Verified 11/03/19 04:25) Rash povidone-iodine [From Betadine] Allergy (Verified 11/03/19 04:25) BLISTERES soap [From Betadine] Allergy (Verified 11/03/19 04:25) Blisters Home Medications: Allopurinol 100 mg [Zyloprim 100 mg] 100 mg PO BID 11/18/18 [History] Amiodarone HCl 200 mg [Cordarone 200 MG] 200 mg PO DAILY 11/18/18 [History] Aspirin 81 mg PO DAILY 11/18/18 [History] Carvedilol 12.5 mg [Coreg 12.5 mg] 6.25 mg PO BID 11/18/18 [History] Dabigatran Etexilate Mesylate [Pradaxa] 150 mg PO BID 11/18/18 [History] HydrALAzine HCL 25 MG TAB [Apresoline 25 MG TABLET] 25 mg PO TID 11/18/18 [History] Isosorbide Mononitrate 30 mg [Imdur 30 MG] 30 mg PO DAILY 11/18/18 [History] PANTOPRAZOLE 40 mg Tablet [Protonix 40MG Tablet] 40 mg PO DAILY 11/18/18 [History] Ranolazine [Ranexa] 1,000 mg PO BID 11/18/18 [History] Sertraline HCl 50 mg [Zoloft 50 mg Tablet] 50 mg PO DAILY 11/18/18 [History] Torsemide 20 mg [Demadex 20 mg] 40 mg PO DAILY 11/18/18 [History] Potassium Chloride 10 Meq Tab* [Klor Con 10 MEQ] 20 meq PO BID 01/02/19 [History] Insulin Glargine [Lantus Insulin] 26 unit SQ QHS 03/23/19 [History] Insulin Lispro [Humalog] 14 unit SQ AC 03/23/19 [History] Pregabalin 50 mg [Lyrica 50MG] 50 mg PO BID 03/23/19 [History] Donepezil HCl 10 mg [Aricept 10 MG] 10 mg PO DAILY 09/23/19 [History] Memantine HCl 5 mg PO BID 11/03/19 [History] Metolazone 2.5 mg [Zaroxolyn 2.5 MG] 2.5 mg PO DAILY 11/03/19 [History] Torsemide 20 mg [Demadex 20 mg] 20 mg PO HS 11/03/19 [History] Hx Tetanus, Diphtheria Vaccination/Date Given: Yes Hx Influenza Vaccination/Date Given: Yes Hx Pneumococcal Vaccination/Date Given: Yes Immunizations Up to Date: Yes Travel Risk - International Travel Have you traveled outside of the country in past 3 weeks: No - Coronavirus Screening Are you exhibiting any of the following symptoms?: No Close contact with a COVID-19 positive Pt in past 14-21 Days: No - Review of Systems Constitutional: No Symptoms, No Fever, No Chills Eyes: No Symptoms Ears, Nose, & Throat: No Symptoms Respiratory: No Symptoms, No Cough, No Dyspnea Cardiac: No Symptoms, No Chest Pain, No Edema, No Syncope Abdominal/Gastrointestinal: No Symptoms, No Abdominal Pain, No Nausea, No Vomiti ng, No Diarrhea Genitourinary Symptoms: No Symptoms, No Dysuria Musculoskeletal: No Symptoms, No Back Pain, No Neck Pain Skin: No Symptoms, No Rash Neurological: No Symptoms, No Dizziness, No Focal Weakness, No Sensory Changes Psychological: No Symptoms Endocrine: No Symptoms Hematologic/Lymphatic: No Symptoms Immunological/Allergic: No Symptoms All Other Systems: Reviewed and Negative - Past Medical History Pertinent Past Medical History: Yes Neurological History: No Pertinent History ENT History: No Pertinent History Cardiac History: Congestive Heart Failure, Hypertension, Myocardial Infarction ([place]), Other Respiratory History: CHF, COPD Endocrine Medical History: Diabetes Type II Musculoskeletal History: Fractures, Rheumatoid Arthritis GI Medical History: No Pertinent History History: No Pertinent History Psycho-Social History: No Pertinent History Female Reproductive Disorders: No Pertinent History Other Medical History: 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 Heart murmur with afib hx. 2-3 dialysis treatments when on vent due to morphine allergy. hx hepatitis A as a child - Past Surgical History Past Surgical History: Yes Neuro Surgical History: No Pertinent History Cardiac: No Pertinent History Respiratory: No Pertinent History Gastrointestinal: Appendectomy Genitourinary: No Pertinent History Musculoskeletal: Orthopedic Surgery Female Surgical History: Hysterectomy Other Surgical History: Multiple hand surgeries, right knee surgery - Social History Smoking Status: Former smoker How long have you smoked: 1 year Exposure to second hand smoke: No Alcohol Use: None Drug Use: none Patient Lives Alone: No Significant Family History: diabetes, hypertension - Nursing Vital Signs Nursing Vital Signs: Initial Vital Signs Temperature 97.6 F 11/03/19 03:56 Pulse Rate 55 L 11/03/19 03:56 Respiratory Rate 18 11/03/19 03:56 Blood Pressure 128/50 11/03/19 03:56 O2 Sat by Pulse Oximetry 97 11/03/19 03:56 Pain Scale Pain Intensity 9 - Physical Exam General Appearance: no apparent distress, alert Eyes, Ears, Nose, Throat Exam: moist mucous membranes Neck Exam: non-tender, supple Cardiovascular/Respiratory Exam: chest non-tender, normal breath sounds, regular rate/rhythm, no respiratory distress Gastrointestinal/Abdominal Exam: non-tender, guarding Back Exam: normal inspection, No vertebral tenderness Hips Exam: bilateral: non-tender, normal inspection, normal range of motion, no evidence of injury Legs Exam: bilateral leg: non-tender, normal inspection, normal range of motion, no evidence of injury Knees Exam: right knee: pain, swelling, left knee: non-tender, normal inspection, normal range of motion, no evidence of injury Ankle Exam: bilateral ankle: non-tender, normal inspection, normal range of motion, no evidence of injury Foot Exam: bilateral foot: non-tender, normal inspection, normal range of motion, no evidence of injury Neuro/Tendon Exam: normal sensation, normal motor functions Mental Status Exam: alert, oriented x 3, cooperative Skin Exam: normal color, warm, dry SpO2 Interpretation: normal SpO2: 97 O2 Delivery: Room Air - Course Nursing assessment & vital signs reviewed: Yes EKG Interpreted by Me: RATE (60), Sinus Rhythm, NORMAL AXIS, NORMAL INTERVALS - Radiology Exams Knee X-ray Interpretation: Teleradiologist Report (No fractures or dislocations. Right knee arthrosis and degenerative bony changes.) Ordered Tests: Active Orders 24 hr Category Date Time Status Facility Operations Manager STAT Care 11/03/19 03:56 Active EKG-ER Only STAT Care 11/03/19 04:55 Active IV Insertion STAT Care 11/03/19 03:56 Active Pulse Oximetry (ED) STAT Care 11/03/19 03:56 Active KNEE (3 VIEWS) Stat Exams 11/03/19 03:55 Taken CBC W DIFF Stat Lab 11/03/19 04:22 Completed CMP Stat Lab 11/03/19 04:22 Completed MAG [MAGNESIUM] Stat Lab 11/03/19 04:10 Completed TROPONIN Q3H Lab 11/03/19 04:22 Completed TROPONIN Q3H Lab 11/03/19 07:00 Ordered TROPONIN Q3H Lab 11/03/19 10:00 Ordered TROPONIN Q3H Lab 11/03/19 13:00 Ordered TROPONIN Q3H Lab 11/03/19 16:00 Ordered UA W/RFX UR CULTURE Stat Lab 11/03/19 03:58 Uncollected Transfer Order Routine Transfer 11/03/19 Ordered Medication Summary Discontinued Medications Generic Name Dose Route Start Last Admin Trade Name Boaz PRN Reason Stop Dose Admin Acetaminophen 975 mg 11/03/19 04:01 11/03/19 04:29 Tylenol 325 Mg PO 11/03/19 04:02 975 mg STAT ONE Administration Acetaminophen Confirm 11/03/19 04:28 Tylenol 325 Mg Administered 11/03/19 04:29 Dose 975 mg .ROUTE .STK-MED ONE Potassium Chloride 40 meq 11/03/19 04:58 11/03/19 05:08 Klor Con 10 Meq PO 11/03/19 04:59 40 meq STAT ONE Administration Potassium Chloride Confirm 11/03/19 05:08 Klor Con 10 Meq Administered 11/03/19 05:09 Dose 40 meq PO .STK-MED ONE Lab/Rad Data: Laboratory Result Diagrams 11/03/19 04:22 11/03/19 04:22 Laboratory Results 11/03/19 11/03/19 11/03/19 Range/Units 04:22 04:22 04:22 WBC 7.1 (4.0-10.5) K/mm3 RBC 4.39 (4.1-5.4) M/mm3 Hgb 13.5 (12.0-16.0) gm/dl Hct 41.8 (35-47) % MCV 95.2 (78-100) fl MCH 30.8 (26-32) pg MCHC 32.3 (32-36) g/dl RDW 17.3 H (11.5-14.0) % Plt Count 182 (150-450) K/mm3 MPV 11.8 H (7.5-11.0) fl Gran % 50.0 (36.0-66.0) % Eos # (Auto) 0.06 (0-0.5) Absolute Lymphs (auto) 2.63 (1.0-4.6) Absolute Monos (auto) 0.83 (0.0-1.3) Lymphocytes % 37.3 (24.0-44.0) % Monocytes % 11.8 (0.0-12.0) % Eosinophils % 0.8 (0.00-5.0) % Basophils % 0.1 (0.0-0.4) % Absolute Granulocytes 3.53 (1.4-6.9) Basophils # 0.01 (0-0.4) Sodium 134 L (137-145) mmol/L Potassium 2.8 L* (3.5-5.1) mmol/L Chloride 89 L (98-107) mmol/L Carbon Dioxide 36 H (22-30) mmol/L Anion Gap 12.5 (5-15) MEQ/L BUN 56 H (7-17) mg/dL Creatinine 1.46 H (0.52-1.04) mg/dL Estimated GFR 37.6 ML/MIN Glucose 195 H (74-106) mg/dL Calcium 9.3 (8.4-10.2) mg/dL Magnesium (1.6-2.3) mg/dL Total Bilirubin 0.90 (0.2-1.3) mg/dL AST 63 H (14-36) U/L ALT 77 H (0-35) U/L Alkaline Phosphatase 92 (38-126) U/L Troponin I 0.017 (0.000-0.034) ng/mL Serum Total Protein 6.7 (6.3-8.2) g/dL Albumin 4.0 (3.5-5.0) g/dL 11/03/19 Range/Units 04:10 WBC (4.0-10.5) K/mm3 RBC (4.1-5.4) M/mm3 Hgb (12.0-16.0) gm/dl Hct (35-47) % MCV (78-100) fl MCH (26-32) pg MCHC (32-36) g/dl RDW (11.5-14.0) % Plt Count (150-450) K/mm3 MPV (7.5-11.0) fl Gran % (36.0-66.0) % Eos # (Auto) (0-0.5) Absolute Lymphs (auto) (1.0-4.6) Absolute Monos (auto) (0.0-1.3) Lymphocytes % (24.0-44.0) % Monocytes % (0.0-12.0) % Eosinophils % (0.00-5.0) % Basophils % (0.0-0.4) % Absolute Granulocytes (1.4-6.9) Basophils # (0-0.4) Sodium (137-145) mmol/L Potassium (3.5-5.1) mmol/L Chloride (98-107) mmol/L Carbon Dioxide (22-30) mmol/L Anion Gap (5-15) MEQ/L BUN (7-17) mg/dL Creatinine (0.52-1.04) mg/dL Estimated GFR ML/MIN Glucose (74-106) mg/dL Calcium (8.4-10.2) mg/dL Magnesium 2.6 H (1.6-2.3) mg/dL Total Bilirubin (0.2-1.3) mg/dL AST (14-36) U/L ALT (0-35) U/L Alkaline Phosphatase (38-126) U/L Troponin I (0.000-0.034) ng/mL Serum Total Protein (6.3-8.2) g/dL Albumin (3.5-5.0) g/dL - Progress Progress: improved Progress Note: 11/03/19 06:09 Patient reassessed. She continues to feel somewhat weak. Electrolyte abnormalities observed. Potassium replaced. Patient work-up shows acute renal injury. Light of patient's generalized weakness and recurrent falls patient requesting admission for further evaluation and treatment. Case discussed with Dr. Cates who accepts admission to observation. Plan of care discussed with patient. She agrees to admission to [facility] for further evaluation and treatment. Discussed with : Amy Will see patient in: hospital (observation) Counseled pt/family regarding: lab results, diagnosis, rad results - Departure Departure Disposition: Home, Observation, Extended Care Facility Clinical Impression: Generalized weakness, Hypokalemia, Acute renal injury, Falls, Hypermagnesemia, Knee pain, right Condition: Stable Critical Care Time: No Referrals: LUIS GALLOWAY MD [Primary Care Provider] -
[2019-11-03 04:53] LABS: ANION GAP 12.5 MEQ/L (5-15); BILIRUBIN,TOTAL 0.9 mg/dL (0.2-1.3); Calcium 9.3 mg/dL (8.4-10.2); Creatinine 1 1.46 mg/dL (0.52-1.04); Total Protein 6.7 g/dL (6.3-8.2)
[2019-11-03 04:56] LABS: Potassium 2.8 mmol/L (3.5-5.1)
[2019-11-03] MEDS ORDERED: Klor Con 10 MEQ PO ONE ×2 (04:58→05:08)
[2019-11-03] MEDS ORDERED: TYLENOL 325 MG PO PRN (07:30)
--- NOTE | 2019-11-03 08:57 | XRAY ---
Indication: Pain following fall. Comparison: None 3 view right knee demonstrates mild osteopenia, minimal tricompartmental degenerative changes, small nonspecific effusion, small fabella, and anterior medial soft tissue swelling. No other bony, articular, or soft tissue abnormalities. Comment: Preliminary interpretation was made by [facility]. No critical discrepancy.
[2019-11-03] MEDS ORDERED: NON-FORMULARY ITEM (Dabigatran Etexilate Mesylate [Pradaxa] 150 MG) PO SCH (10:00)
[2019-11-03] MEDS ORDERED: RANOLAZINE 1000 MG PO SCH (10:00)
[2019-11-03] MEDS ORDERED: NON-FORMULARY ITEM (Aspirin [Aspirin] 81 MG) PO SCH (10:00)
[2019-11-03] MEDS ORDERED: COREG 12.5 MG PO SCH (10:00)
[2019-11-03] MEDS: PRADAXA 75 MG PO SCH ×2 (10:34→21:56)
[2019-11-03] MEDS: Coreg 6.25 MG PO SCH ×2 (10:34→21:56)
[2019-11-03] MEDS: Imdur 30 MG PO SCH (10:34)
[2019-11-03] MEDS: ZOLOFT 50 MG TABLET PO SCH (10:35)
[2019-11-03] MEDS: Zaroxolyn 2.5 MG PO SCH (10:35)
[2019-11-03] MEDS: Ranexa 500 MG PO SCH ×2 (10:35→21:56)
[2019-11-03] MEDS: Cordarone 200 MG PO SCH (10:35)
[2019-11-03] MEDS: Apresoline 25 MG TABLET PO SCH ×3 (10:35→21:56)
[2019-11-03] MEDS: Klor Con 10 MEQ PO SCH ×2 (10:35→21:57)
[2019-11-03] MEDS: Protonix 40MG Tablet PO SCH (10:35)
[2019-11-03] MEDS: ZYLOPRIM 100 MG PO SCH ×2 (10:35→21:56)
[2019-11-03] MEDS: ECOTRIN 81 MG PO SCH (10:35)
[2019-11-03] MEDS: Lyrica 50MG PO SCH ×2 (10:35→21:56)
[2019-11-03] MEDS: HUMALOG SQ SCH ×3 (10:39→17:25)
--- NOTE | 2019-11-03 11:42 | XRAY ---
Indication: Right leg pain. Two-dimensional sonogram and color Doppler imaging of the major venous vessels of the right leg was performed. Comparison: January 16, 2015. Again no thrombus seen in the examined deep venous vessels of the right leg greater saphenous vein. Veins demonstrate normal compressibility. Venous waveforms are normal with and without augmentation. Impression: Right leg remains negative for DVT.
--- NOTE | 2019-11-03 11:44 | XRAY ---
Indication: Right leg pain and left leg decreased pulses. Two-dimensional sonogram and color Doppler imaging of the major arteries of the left and right leg was performed. Comparison: None. Examination of the right leg demonstrates minimal scattered arteriosclerotic disease in the common femoral, deep femoral, superficial femoral, popliteal, posterior tibial, and dorsal pedal arteries without critical stenosis/obstruction. Arterial waveforms are multiphasic throughout the right leg. Right arm brachial pressure is 134. Right ankle pressure is 134. Ankle-brachial index is 1.0, normal. Examination of the left leg also demonstrates minimal scattered arteriosclerotic disease in the common femoral, deep femoral, superficial femoral, popliteal, posterior tibial, and dorsal pedal arteries without critical stenosis/obstruction. Tear waveforms are multiphasic throughout the left leg. Left ankle pressure is 127. Ankle-brachial index is 0.95, normal. Impression: Minimal scattered arteriosclerotic disease bilaterally without critical stenosis/obstruction. Left and right ankle-brachial indices are normal.
[2019-11-03] MEDS ORDERED: INSULIN LISPRO 12 UNIT SQ SCH (12:00)
[2019-11-03 14:03] LABS: Appearance CLEAR (CLEAR); Bacteria RARE /HPF (NEGATIVE); Bilirubin NEGATIVE (NEGATIVE); Blood NEGATIVE Ery/ul (0-5); Epithelial Cells RARE /HPF (FEW); Glucose >=500 mg/dL (NEGATIVE); Ketones NEGATIVE (NEGATIVE); Leukocyte Esterase NEGATIVE (NEGATIVE); Nitrite NEGATIVE (NEGATIVE); Protein,Urine Dip NEGATIVE (Negative); Specific Gravity 1.007 (1.005-1.025); Urobilinogen NEGATIVE mg/dL (0-1)
[2019-11-03] MEDS: Sodium Chloride 0.9% 500 ML 500 ML IV SCH ×2 (14:48→21:02)
[2019-11-03] MEDS: POTASSIUM CHLORIDE 20 mEq IN WATER 100ML 20 MEQ/100 ML BAG IV SCH ×2 (14:52→17:25)
[2019-11-03] MEDS ORDERED: NON-FORMULARY ITEM (Insulin Lispro 10 UNIT) SQ SCH (17:00)
--- NOTE | 2019-11-03 21:10 | PCM.HP ---
History of Present Illness - Chief Complaint Chief Complaint: Generalized weakness History of Present Illness: is a 69 year old female of mine from [facility], seen this morning by me, who came in to hosp c/o R knee pain after a fall, and found to have acute renal injury and hypokalemia (K+ of 2.8). She denies any LOC. Tired this morning. - Review of Systems Constitutional: Chills (shakes from her L shoulder radiating down to L leg) Respiratory: Short Of Breath (2d ago in the evening; resolved spontaneously.) Cardiac: Chest Pain (R sided, present since last hospital admission, -11/14 worse recently; did discuss on telephone visit with Dr. Marquez recently.) Abdominal/Gastrointestinal: Vomiting Genitourinary Symptoms: Frequency Musculoskeletal: Myalgias (pain bilat lower legs. c/o R calf feels cold.) Skin: Pruritis (itching inferior to R arm and breast), Other (some erythema bilat LE) Medications & Allergies Home Medications: Home Medication List Allopurinol 100 mg [Zyloprim 100 mg] 100 mg PO BID 11/18/18 [History Confirmed 11/03/19] Amiodarone HCl 200 mg [Cordarone 200 MG] 200 mg PO DAILY 11/18/18 [History Confirmed 11/03/19] Aspirin 81 mg PO DAILY 11/18/18 [History Confirmed 11/03/19] Carvedilol 12.5 mg [Coreg 12.5 mg] 6.25 mg PO BID 11/18/18 [History Confirmed 11/03/19] Dabigatran Etexilate Mesylate [Pradaxa] 150 mg PO BID 11/18/18 [History Confirmed 11/03/19] HydrALAzine HCL 25 MG TAB [Apresoline 25 MG TABLET] 25 mg PO TID 11/18/18 [History Confirmed 11/03/19] Isosorbide Mononitrate 30 mg [Imdur 30 MG] 30 mg PO DAILY 11/18/18 [History Confirmed 11/03/19] PANTOPRAZOLE 40 mg Tablet [Protonix 40MG Tablet] 40 mg PO DAILY 11/18/18 [History Confirmed 11/03/19] Ranolazine [Ranexa] 1,000 mg PO BID 11/18/18 [History Confirmed 11/03/19] Sertraline HCl 50 mg [Zoloft 50 mg Tablet] 50 mg PO DAILY 11/18/18 [History Confirmed 11/03/19] Torsemide 20 mg [Demadex 20 mg] 40 mg PO DAILY 11/18/18 [History Confirmed 11/03/19] Potassium Chloride 10 Meq Tab* [Klor Con 10 MEQ] 20 meq PO BID 01/02/19 [History Confirmed 11/03/19] Insulin Glargine [Lantus Insulin] 26 unit SQ QHS 03/23/19 [History Confirmed 11/03/19] Insulin Lispro [Humalog] 14 unit SQ BREAKFAST 03/23/19 [History Confirmed 11/03/19] Pregabalin 50 mg [Lyrica 50MG] 50 mg PO BID 03/23/19 [History Confirmed 11/03/19] Insulin Lispro [Humalog] 10 unit SQ DINNER 11/03/19 [History Confirmed 11/03/19] Insulin Lispro [Humalog] 12 unit SQ LUNCH 11/03/19 [History Confirmed 11/03/19] Metolazone 2.5 mg [Zaroxolyn 2.5 MG] 2.5 mg PO DAILY 11/03/19 [History Confirmed 11/03/19] Torsemide 20 mg [Demadex 20 mg] 20 mg PO HS 11/03/19 [History Confirmed 11/03/19] Allergies/Adverse Reactions: Allergies Allergy/AdvReac Type Severity Reaction Status Date / Time morphine Allergy Severe anaphylaxis Verified 11/03/19 04:25 adhesive Allergy Mild Blisters Verified 11/03/19 04:25 aspirin Allergy Difficulty Verified 11/03/19 04:25 Breathing Penicillins Allergy Rash Verified 11/03/19 04:25 povidone-iodine Allergy BLISTERES Verified 11/03/19 04:25 [From Betadine] soap [From Betadine] Allergy Blisters Verified 11/03/19 04:25 - Past Medical History Past Medical History: Yes Neurological History: No Pertinent History ENT History: No Pertinent History Cardiac History: Congestive Heart Failure, Hypertension, Myocardial Infarction (MA), Other Respiratory History: CHF, COPD Endocrine Medical History: Diabetes Type II Musculoskelatal History: Fractures, Rheumatoid Arthritis GI Medical History: No Pertinent History History: Other Pyscho-Social History: No Pertinent History Reproductive Disorders: No Pertinent History Comment: acute kidney injury. Heart murmur with afib hx. 2-3 dialysis treatments when on vent due to morphine allergy. hx hepatitis A as a child, broken ankle 05/07/2019, wrist fx, - Female History Are you now?: No - Past Surgical History Past Surgical History: Yes Neuro Surgical History: No Pertinent History Cardiac History: No Pertinent History Respiratory Surgery: No Pertinent History GI Surgical History: Appendectomy Genitourinary Surgical Hx: No Pertinent History Musculskeletal Surgical Hx: Orthopedic Surgery Female Surgical History: Hysterectomy Other Surgical History: Multiple hand surgeries - Social History Smoking Status: Former smoker How long have you smoked: 1 year Exposure to second hand smoke: No Alcohol: None Drug Use: none Significant Family History: diabetes, hypertension - Physical Exam Vital Signs: Vital Signs - 24 hr Temp Pulse Resp BP Pulse Ox 11/03/19 20:00 23 11/03/19 19:25 97.7 F 62 23 130/61 97 11/03/19 19:17 96 11/03/19 16:00 21 11/03/19 15:46 97.9 F 62 21 130/60 95 11/03/19 12:00 16 11/03/19 11:45 98.4 F 68 16 130/60 96 11/03/19 08:07 95 11/03/19 07:54 97.8 F 64 20 145/63 95 11/03/19 07:20 97.8 F 64 20 145/63 95 11/03/19 06:23 65 17 141/60 96 11/03/19 06:10 97 11/03/19 05:03 58 L 20 143/65 97 11/03/19 03:58 97 11/03/19 03:56 97.6 F 55 L 18 128/50 97 General Appearance: no apparent distress, obese Neurologic Exam: alert, oriented x 3, cooperative Eye Exam: eyes nml inspection Ears, Nose, Throat Exam: moist mucous membranes Neck Exam: normal inspection, non-tender, lymphadenopathy Respiratory Exam: normal breath sounds, lungs clear, No crackles/rales, No rhonchi, No wheezing Cardiovascular Exam: regular rate/rhythm, normal heart sounds, No murmur Gastrointestinal/Abdomen Exam: soft, normal bowel sounds, No tenderness, No distention, No mass, No guarding Back Exam: normal inspection, No rash Extremity Exam: other (LE trace edema bilat. There is an irregular purple macule inferior to R knee. Calves are ttp throughout. No erythema/exudate.) Results - Labs Lab/Micro Results: Accuchecks Date 11/03/19 Date 11/03/19 Time 11:30 Time 11:30 Accucheck Value: 259 Accucheck Value: 259 Lab Results-Last 24 Hours 11/03/19 11/03/19 11/03/19 Range/Units 04:10 04:22 04:22 WBC 7.1 (4.0-10.5) K/mm3 RBC 4.39 (4.1-5.4) M/mm3 Hgb 13.5 (12.0-16.0) gm/dl Hct 41.8 (35-47) % MCV 95.2 (78-100) fl MCH 30.8 (26-32) pg MCHC 32.3 (32-36) g/dl RDW 17.3 H (11.5-14.0) % Plt Count 182 (150-450) K/mm3 MPV 11.8 H (7.5-11.0) fl Gran % 50.0 (36.0-66.0) % Eos # (Auto) 0.06 (0-0.5) Absolute Lymphs (auto) 2.63 (1.0-4.6) Absolute Monos (auto) 0.83 (0.0-1.3) Lymphocytes % 37.3 (24.0-44.0) % Monocytes % 11.8 (0.0-12.0) % Eosinophils % 0.8 (0.00-5.0) % Basophils % 0.1 (0.0-0.4) % Absolute Granulocytes 3.53 (1.4-6.9) Basophils # 0.01 (0-0.4) Sodium 134 L (137-145) mmol/L Potassium 2.8 L* (3.5-5.1) mmol/L Chloride 89 L (98-107) mmol/L Carbon Dioxide 36 H (22-30) mmol/L Anion Gap 12.5 (5-15) MEQ/L BUN 56 H (7-17) mg/dL Creatinine 1.46 H (0.52-1.04) mg/dL Estimated GFR 37.6 ML/MIN Glucose 195 H (74-106) mg/dL Calcium 9.3 (8.4-10.2) mg/dL Magnesium 2.6 H (1.6-2.3) mg/dL Total Bilirubin 0.90 (0.2-1.3) mg/dL AST 63 H (14-36) U/L ALT 77 H (0-35) U/L Alkaline Phosphatase 92 (38-126) U/L Troponin I (0.000-0.034) ng/mL Serum Total Protein 6.7 (6.3-8.2) g/dL Albumin 4.0 (3.5-5.0) g/dL Urine Color (YELLOW) Urine Appearance (CLEAR) Urine pH (5-6) Ur Specific [place] (1.005-1.025) Urine Protein (Negative) Urine Ketones (NEGATIVE) Urine Blood (0-5) Kervin/ul Urine Nitrite (NEGATIVE) Urine Bilirubin (NEGATIVE) Urine Urobilinogen (0-1) mg/dL Ur Leukocyte Esterase (NEGATIVE) Urine WBC (Auto) (0-5) /HPF Urine RBC (Auto) (0-2) /HPF U Hyaline Cast (Auto) (0-2) /LPF U Epithel Cells (Auto) (FEW) /HPF Urine Bacteria (Auto) (NEGATIVE) /HPF Other Casts (Auto) (NEGATIVE) /LPF Urine Culture Reflexed (NO) Urine Glucose (NEGATIVE) mg/dL 11/03/19 11/03/19 11/03/19 Range/Units 04:22 07:00 09:30 WBC (4.0-10.5) K/mm3 RBC (4.1-5.4) M/mm3 Hgb (12.0-16.0) gm/dl Hct (35-47) % MCV (78-100) fl MCH (26-32) pg MCHC (32-36) g/dl RDW (11.5-14.0) % Plt Count (150-450) K/mm3 MPV (7.5-11.0) fl Gran % (36.0-66.0) % Eos # (Auto) (0-0.5) Absolute Lymphs (auto) (1.0-4.6) Absolute Monos (auto) (0.0-1.3) Lymphocytes % (24.0-44.0) % Monocytes % (0.0-12.0) % Eosinophils % (0.00-5.0) % Basophils % (0.0-0.4) % Absolute Granulocytes (1.4-6.9) Basophils # (0-0.4) Sodium (137-145) mmol/L Potassium (3.5-5.1) mmol/L Chloride (98-107) mmol/L Carbon Dioxide (22-30) mmol/L Anion Gap (5-15) MEQ/L BUN (7-17) mg/dL Creatinine (0.52-1.04) mg/dL Estimated GFR ML/MIN Glucose (74-106) mg/dL Calcium (8.4-10.2) mg/dL Magnesium (1.6-2.3) mg/dL Total Bilirubin (0.2-1.3) mg/dL AST (14-36) U/L ALT (0-35) U/L Alkaline Phosphatase (38-126) U/L Troponin I 0.017 0.014 < 0.012 (0.000-0.034) ng/mL Serum Total Protein (6.3-8.2) g/dL Albumin (3.5-5.0) g/dL Urine Color (YELLOW) Urine Appearance (CLEAR) Urine pH (5-6) Ur Specific [place] (1.005-1.025) Urine Protein (Negative) Urine Ketones (NEGATIVE) Urine Blood (0-5) Kervin/ul Urine Nitrite (NEGATIVE) Urine Bilirubin (NEGATIVE) Urine Urobilinogen (0-1) mg/dL Ur Leukocyte Esterase (NEGATIVE) Urine WBC (Auto) (0-5) /HPF Urine RBC (Auto) (0-2) /HPF U Hyaline Cast (Auto) (0-2) /LPF U Epithel Cells (Auto) (FEW) /HPF Urine Bacteria (Auto) (NEGATIVE) /HPF Other Casts (Auto) (NEGATIVE) /LPF Urine Culture Reflexed (NO) Urine Glucose (NEGATIVE) mg/dL 11/03/19 11/03/19 11/03/19 Range/Units 13:00 13:00 13:51 WBC (4.0-10.5) K/mm3 RBC (4.1-5.4) M/mm3 Hgb (12.0-16.0) gm/dl Hct (35-47) % MCV (78-100) fl MCH (26-32) pg MCHC (32-36) g/dl RDW (11.5-14.0) % Plt Count (150-450) K/mm3 MPV (7.5-11.0) fl Gran % (36.0-66.0) % Eos # (Auto) (0-0.5) Absolute Lymphs (auto) (1.0-4.6) Absolute Monos (auto) (0.0-1.3) Lymphocytes % (24.0-44.0) % Monocytes % (0.0-12.0) % Eosinophils % (0.00-5.0) % Basophils % (0.0-0.4) % Absolute Granulocytes (1.4-6.9) Basophils # (0-0.4) Sodium (137-145) mmol/L Potassium 3.0 L (3.5-5.1) mmol/L Chloride (98-107) mmol/L Carbon Dioxide (22-30) mmol/L Anion Gap (5-15) MEQ/L BUN (7-17) mg/dL Creatinine (0.52-1.04) mg/dL Estimated GFR ML/MIN Glucose (74-106) mg/dL Calcium (8.4-10.2) mg/dL Magnesium (1.6-2.3) mg/dL Total Bilirubin (0.2-1.3) mg/dL AST (14-36) U/L ALT (0-35) U/L Alkaline Phosphatase (38-126) U/L Troponin I < 0.012 (0.000-0.034) ng/mL Serum Total Protein (6.3-8.2) g/dL Albumin (3.5-5.0) g/dL Urine Color YELLOW (YELLOW) Urine Appearance CLEAR (CLEAR) Urine pH 7.0 (5-6) Ur Specific [place] 1.007 (1.005-1.025) Urine Protein NEGATIVE (Negative) Urine Ketones NEGATIVE (NEGATIVE) Urine Blood NEGATIVE (0-5) Kervin/ul Urine Nitrite NEGATIVE (NEGATIVE) Urine Bilirubin NEGATIVE (NEGATIVE) Urine Urobilinogen NEGATIVE (0-1) mg/dL Ur Leukocyte Esterase NEGATIVE (NEGATIVE) Urine WBC (Auto) 3-5 (0-5) /HPF Urine RBC (Auto) 3-5 (0-2) /HPF U Hyaline Cast (Auto) 3-5 (0-2) /LPF U Epithel Cells (Auto) RARE (FEW) /HPF Urine Bacteria (Auto) RARE (NEGATIVE) /HPF Other Casts (Auto) NEGATIVE (NEGATIVE) /LPF Urine Culture Reflexed NO (NO) Urine Glucose >=500 (NEGATIVE) mg/dL 11/03/19 Range/Units 16:00 WBC (4.0-10.5) K/mm3 RBC (4.1-5.4) M/mm3 Hgb (12.0-16.0) gm/dl Hct (35-47) % MCV (78-100) fl MCH (26-32) pg MCHC (32-36) g/dl RDW (11.5-14.0) % Plt Count (150-450) K/mm3 MPV (7.5-11.0) fl Gran % (36.0-66.0) % Eos # (Auto) (0-0.5) Absolute Lymphs (auto) (1.0-4.6) Absolute Monos (auto) (0.0-1.3) Lymphocytes % (24.0-44.0) % Monocytes % (0.0-12.0) % Eosinophils % (0.00-5.0) % Basophils % (0.0-0.4) % Absolute Granulocytes (1.4-6.9) Basophils # (0-0.4) Sodium (137-145) mmol/L Potassium (3.5-5.1) mmol/L Chloride (98-107) mmol/L Carbon Dioxide (22-30) mmol/L Anion Gap (5-15) MEQ/L BUN (7-17) mg/dL Creatinine (0.52-1.04) mg/dL Estimated GFR ML/MIN Glucose (74-106) mg/dL Calcium (8.4-10.2) mg/dL Magnesium (1.6-2.3) mg/dL Total Bilirubin (0.2-1.3) mg/dL AST (14-36) U/L ALT (0-35) U/L Alkaline Phosphatase (38-126) U/L Troponin I < 0.012 (0.000-0.034) ng/mL Serum Total Protein (6.3-8.2) g/dL Albumin (3.5-5.0) g/dL Urine Color (YELLOW) Urine Appearance (CLEAR) Urine pH (5-6) Ur Specific [place] (1.005-1.025) Urine Protein (Negative) Urine Ketones (NEGATIVE) Urine Blood (0-5) Kervin/ul Urine Nitrite (NEGATIVE) Urine Bilirubin (NEGATIVE) Urine Urobilinogen (0-1) mg/dL Ur Leukocyte Esterase (NEGATIVE) Urine WBC (Auto) (0-5) /HPF Urine RBC (Auto) (0-2) /HPF U Hyaline Cast (Auto) (0-2) /LPF U Epithel Cells (Auto) (FEW) /HPF Urine Bacteria (Auto) (NEGATIVE) /HPF Other Casts (Auto) (NEGATIVE) /LPF Urine Culture Reflexed (NO) Urine Glucose (NEGATIVE) mg/dL Accuchecks Date 11/03/19 Date 11/03/19 Time 11:30 Time 11:30 Accucheck Value: 259 Accucheck Value: 259 - Radiology Impressions Radiology Exams & Impressions: Radiology Procedures Category Date Time Status ARTERIAL BILAT LOWER EXTREMITY [US] Routine Exams 11/03/19 11:23 Completed KNEE (3 VIEWS) Stat Exams 11/03/19 03:55 Completed VENOUS UNILAT/LIMITED EXTREMIT [US] Stat Exams 11/03/19 11:23 Completed - Other Procedures and Tests Respiratory Therapy 11/03/19 08:07 Oxygen NASAL CANNULA 3 lpm 11/03/19 21:00 BiPap/CPAP ROUTINE Assessment/Plan (1) Acute renal injury Current Visit: Yes Status: Acute Assessment & Plan: eGFR 37.6 on admission. Recheck in a.m. On IV fluids, holding diuretic today. Code(s): N17.9 - ACUTE KIDNEY FAILURE, UNSPECIFIED (2) Falls Current Visit: Yes Status: Acute Qualifiers: Encounter type: subsequent encounter Qualified Code(s): W19.XXXD - U nspecified fall, subsequent encounter Code(s): W19.XXXA - UNSPECIFIED FALL, INITIAL ENCOUNTER (3) Hypokalemia Current Visit: Yes Status: Acute Assessment & Plan: repleting IV. She did have some vomiting at home which may have contributed. Code(s): E87.6 - HYPOKALEMIA (4) Knee pain, right Current Visit: Yes Status: Acute Qualifiers: Chronicity: acute Qualified Code(s): M25.561 - Pain in right knee Assessment & Plan: XR is nonacute. Code(s): M25.561 - PAIN IN RIGHT KNEE (5) Weakness Current Visit: Yes Status: Chronic Assessment & Plan: PT consulted. Code(s): R53.1 - WEAKNESS (6) Chest pain Current Visit: No Status: Chronic Assessment & Plan: troponins done and neg. 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 Venous doppler of R calf is neg for DVT.
[2019-11-03] MEDS: Lantus Insulin SQ SCH (21:57)
[2019-11-04 04:53] LABS: Hematocrit 38.2 % (35-47); Mean Cell Volume 97.7 fl (78-100); Mean Corpuscular Hemoglobin 30.7 pg (26-32); Mean Corpuscular Hgb Concent. 31.4 g/dl (32-36); Mean Platelet Volume 12.1 fl (7.5-11.0); Platelet Count 156 K/mm3 (150-450); Red Blood Count 3.91 M/mm3 (4.1-5.4); Red Cell Distribution Width 17.6 % (11.5-14.0); White Blood Count 6.3 K/mm3 (4.0-10.5)
[2019-11-04 05:19] LABS: ALBUMIN 3.3 g/dL (3.5-5.0); ANION GAP 9.4 MEQ/L (5-15); BILIRUBIN,TOTAL 0.6 mg/dL (0.2-1.3); Calcium 8.9 mg/dL (8.4-10.2); Creatinine 1 1.48 mg/dL (0.52-1.04); MAGNESIUM 2.6 mg/dL (1.6-2.3); Potassium 4.3 mmol/L (3.5-5.1); Total Protein 5.7 g/dL (6.3-8.2)
[2019-11-04] MEDS ORDERED: NON-FORMULARY ITEM (Insulin Lispro 14 UNIT) SQ SCH (08:00)
[2019-11-04] MEDS ORDERED: Sodium Chloride 0.9% 500 ML 500 ML IV ONE ×3 (08:12→17:04)
[2019-11-04] MEDS: HUMALOG SQ SCH ×3 (08:18→17:16)
[2019-11-04] MEDS ORDERED: Dulcolax 10 MG SUPP PR PRN (08:39)
--- NOTE | 2019-11-04 08:39 | PCM.NOTE ---
Date and Time: 11/04/19 0835 Subjective Assessment: RLE is "sore." C/o bruise on her tailbone. Got up and walked some yesterday; knee started to buckle once but she waited then was able to continue walking. Guy po. - Review of Systems Constitutional: Weakness, No Fever Objective Exam General Appearance: no apparent distress, obese Neurologic Exam: alert, oriented x 3, cooperative Skin Exam: warm, dry, No rash Ears, Nose, Throat Exam: moist mucous membranes Neck Exam: normal inspection Respiratory Exam: normal breath sounds, lungs clear, No crackles/rales, No rhonchi, No wheezing Cardiovascular Exam: regular rate/rhythm, normal heart sounds, No murmur Gastrointestinal/Abdomen Exam: soft, normal bowel sounds, No tenderness OBJECTIVE DATA Vital Signs: Vital Signs - 24 hr Temp Pulse Resp BP Pulse Ox 11/04/19 07:55 57 L 14 125/56 90 L 11/04/19 06:59 93 L 11/04/19 04:00 98.3 F 57 L 16 128/61 96 11/04/19 00:00 99.3 F 57 L 18 137/60 93 L 11/03/19 20:00 23 11/03/19 19:25 97.7 F 62 23 130/61 97 11/03/19 19:17 96 11/03/19 16:00 21 11/03/19 15:46 97.9 F 62 21 130/60 95 11/03/19 12:00 16 11/03/19 11:45 98.4 F 68 16 130/60 96 Pain Assessment - Last Documented Pain Intensity 4 Pain Scale Used [facility] Intake and Output: Intake & Output 11/01/19 11/02/19 11/03/19 11/04/19 11:59 11:59 11:59 11:59 Intake Total 360 1369 Output Total 400 Balance 360 969 Weight 125 kg Lab Results: Accuchecks Date 11/04/19 Date 11/03/19 Date 11/03/19 Date 11/03/19 Time 07:30 Time 22:00 Time 11:30 Time 11:30 Accucheck Value: 276 Accucheck Value: 317 Accucheck Value: 259 Accucheck Value: 259 Lab Results-Last 24 Hours 11/03/19 11/03/19 11/03/19 Range/Units 09:30 13:00 13:00 WBC (4.0-10.5) K/mm3 RBC (4.1-5.4) M/mm3 Hgb (12.0-16.0) gm/dl Hct (35-47) % MCV (78-100) fl MCH (26-32) pg MCHC (32-36) g/dl RDW (11.5-14.0) % Plt Count (150-450) K/mm3 MPV (7.5-11.0) fl Sodium (137-145) mmol/L Potassium 3.0 L (3.5-5.1) mmol/L Chloride (98-107) mmol/L Carbon Dioxide (22-30) mmol/L Anion Gap (5-15) MEQ/L BUN (7-17) mg/dL Creatinine (0.52-1.04) mg/dL Estimated GFR ML/MIN Glucose (74-106) mg/dL Calcium (8.4-10.2) mg/dL Magnesium (1.6-2.3) mg/dL Total Bilirubin (0.2-1.3) mg/dL AST (14-36) U/L ALT (0-35) U/L Alkaline Phosphatase (38-126) U/L Troponin I < 0.012 < 0.012 (0.000-0.034) ng/mL Serum Total Protein (6.3-8.2) g/dL Albumin (3.5-5.0) g/dL Urine Color (YELLOW) Urine Appearance (CLEAR) Urine pH (5-6) Ur Specific [place] (1.005-1.025) Urine Protein (Negative) Urine Ketones (NEGATIVE) Urine Blood (0-5) Kervin/ul Urine Nitrite (NEGATIVE) Urine Bilirubin (NEGATIVE) Urine Urobilinogen (0-1) mg/dL Ur Leukocyte Esterase (NEGATIVE) Urine WBC (Auto) (0-5) /HPF Urine RBC (Auto) (0-2) /HPF U Hyaline Cast (Auto) (0-2) /LPF U Epithel Cells (Auto) (FEW) /HPF Urine Bacteria (Auto) (NEGATIVE) /HPF Other Casts (Auto) (NEGATIVE) /LPF Urine Culture Reflexed (NO) Urine Glucose (NEGATIVE) mg/dL 11/03/19 11/03/19 11/04/19 Range/Units 13:51 16:00 00:31 WBC (4.0-10.5) K/mm3 RBC (4.1-5.4) M/mm3 Hgb (12.0-16.0) gm/dl Hct (35-47) % MCV (78-100) fl MCH (26-32) pg MCHC (32-36) g/dl RDW (11.5-14.0) % Plt Count (150-450) K/mm3 MPV (7.5-11.0) fl Sodium (137-145) mmol/L Potassium 3.6 (3.5-5.1) mmol/L Chloride (98-107) mmol/L Carbon Dioxide (22-30) mmol/L Anion Gap (5-15) MEQ/L BUN (7-17) mg/dL Creatinine (0.52-1.04) mg/dL Estimated GFR ML/MIN Glucose (74-106) mg/dL Calcium (8.4-10.2) mg/dL Magnesium (1.6-2.3) mg/dL Total Bilirubin (0.2-1.3) mg/dL AST (14-36) U/L ALT (0-35) U/L Alkaline Phosphatase (38-126) U/L Troponin I < 0.012 (0.000-0.034) ng/mL Serum Total Protein (6.3-8.2) g/dL Albumin (3.5-5.0) g/dL Urine Color YELLOW (YELLOW) Urine Appearance CLEAR (CLEAR) Urine pH 7.0 (5-6) Ur Specific [place] 1.007 (1.005-1.025) Urine Protein NEGATIVE (Negative) Urine Ketones NEGATIVE (NEGATIVE) Urine Blood NEGATIVE (0-5) Kervin/ul Urine Nitrite NEGATIVE (NEGATIVE) Urine Bilirubin NEGATIVE (NEGATIVE) Urine Urobilinogen NEGATIVE (0-1) mg/dL Ur Leukocyte Esterase NEGATIVE (NEGATIVE) Urine WBC (Auto) 3-5 (0-5) /HPF Urine RBC (Auto) 3-5 (0-2) /HPF U Hyaline Cast (Auto) 3-5 (0-2) /LPF U Epithel Cells (Auto) RARE (FEW) /HPF Urine Bacteria (Auto) RARE (NEGATIVE) /HPF Other Casts (Auto) NEGATIVE (NEGATIVE) /LPF Urine Culture Reflexed NO (NO) Urine Glucose >=500 (NEGATIVE) mg/dL 11/04/19 11/04/19 Range/Units 04:18 04:18 WBC 6.3 (4.0-10.5) K/mm3 RBC 3.91 L (4.1-5.4) M/mm3 Hgb 12.0 (12.0-16.0) gm/dl Hct 38.2 (35-47) % MCV 97.7 (78-100) fl MCH 30.7 (26-32) pg MCHC 31.4 L (32-36) g/dl RDW 17.6 H (11.5-14.0) % Plt Count 156 (150-450) K/mm3 MPV 12.1 H (7.5-11.0) fl Sodium 137 (137-145) mmol/L Potassium 4.3 (3.5-5.1) mmol/L Chloride 96 L (98-107) mmol/L Carbon Dioxide 36 H (22-30) mmol/L Anion Gap 9.4 (5-15) MEQ/L BUN 49 H (7-17) mg/dL Creatinine 1.48 H (0.52-1.04) mg/dL Estimated GFR 37.1 ML/MIN Glucose 281 H (74-106) mg/dL Calcium 8.9 (8.4-10.2) mg/dL Magnesium 2.6 H (1.6-2.3) mg/dL Total Bilirubin 0.60 (0.2-1.3) mg/dL AST 37 H (14-36) U/L ALT 57 H (0-35) U/L Alkaline Phosphatase 114 (38-126) U/L Troponin I (0.000-0.034) ng/mL Serum Total Protein 5.7 L (6.3-8.2) g/dL Albumin 3.3 L (3.5-5.0) g/dL Urine Color (YELLOW) Urine Appearance (CLEAR) Urine pH (5-6) Ur Specific [place] (1.005-1.025) Urine Protein (Negative) Urine Ketones (NEGATIVE) Urine Blood (0-5) Kervin/ul Urine Nitrite (NEGATIVE) Urine Bilirubin (NEGATIVE) Urine Urobilinogen (0-1) mg/dL Ur Leukocyte Esterase (NEGATIVE) Urine WBC (Auto) (0-5) /HPF Urine RBC (Auto) (0-2) /HPF U Hyaline Cast (Auto) (0-2) /LPF U Epithel Cells (Auto) (FEW) /HPF Urine Bacteria (Auto) (NEGATIVE) /HPF Other Casts (Auto) (NEGATIVE) /LPF Urine Culture Reflexed (NO) Urine Glucose (NEGATIVE) mg/dL Radiology Exams: Radiology Procedures Category Date Time Status ARTERIAL BILAT LOWER EXTREMITY [US] Routine Exams 11/03/19 11:23 Completed KNEE (3 VIEWS) Stat Exams 11/03/19 03:55 Completed VENOUS UNILAT/LIMITED EXTREMIT [US] Stat Exams 11/03/19 11:23 Completed Multi-Disciplinary Progress Notes: Multi-Disciplinary Progress Notes 11/03/19 11:06 Case Management Note by Radha Grullon AT [facility] NOTIFIED PATIENT HERE AT OBS. THEY WILL NEED NOTIFIED OF DC AT [phone]. THEY WILL ALSO NEED DC INSTRUCTIONS, DC MED LIST AND DC SUMMARY (IF AVAILABLE) SENT TO THEM AT [phone] Initialized on 11/03/19 11:06 - END OF NOTE Assessment/Plan (1) Acute renal injury Current Visit: Yes Status: Acute Assessment & Plan: Persistent. Her baseline eGFR is in the 50s. Will do some small boluses of fluid throughout the day. Code(s): N17.9 - ACUTE KIDNEY FAILURE, UNSPECIFIED (2) Falls Current Visit: Yes Status: Acute Qualifiers: Encounter type: subsequent encounter Qualified Code(s): W19.XXXD - Unspecified fall, subsequent encounter Code(s): W19.XXXA - UNSPECIFIED FALL, INITIAL ENCOUNTER (3) Hypokalemia Current Visit: Yes Status: Resolved Code(s): E87.6 - HYPOKALEMIA (4) Knee pain, right Current Visit: Yes Status: Acute Qualifiers: Chronicity: acute Qualified Code(s): M25.561 - Pain in right knee Code(s): M25.561 - PAIN IN RIGHT KNEE (5) Weakness Current Visit: Yes Status: Chronic Code(s): R53.1 - WEAKNESS (6) Chest pain Current Visit: No Status: Chronic Code(s): R07.9 - CHEST PAIN, UNSPECIFIED (7) Diabetes mellitus Current Visit: No Status: Chronic Qualifiers: Diabetes mellitus type: type 2 Diabetes mellitus intermediate insulin use: with intermediate card tender use Diabetes mellitus complication status: with hyperglycemia Qualified Code(s): E11.65 - Type 2 diabetes mellitus with hyperglycemia; Z79.4 - [facility] (current) use of insulin Code(s): E11.9 - TYPE 2 DIABETES MELLITUS WITHOUT COMPLICATIONS (8) Essential hypertension Current Visit: No Status: Chronic Code(s): I10 - ESSENTIAL (PRIMARY) HYPERTENSION (9) Leg pain Current Visit: No Status: Acute Qualifiers: Laterality: bilateral Qualified Code(s): M79.604 - Pain in right leg; M79.605 - Pain in left leg Assessment & Plan: arterial and venous dopplers neg.
[2019-11-04] MEDS: Klor Con 10 MEQ PO SCH ×2 (09:50→21:18)
[2019-11-04] MEDS: Miralax Powder 17GM PACKET PO SCH (09:50)
[2019-11-04] MEDS: ZOLOFT 50 MG TABLET PO SCH (09:51)
[2019-11-04] MEDS: Ranexa 500 MG PO SCH ×2 (09:51→21:18)
[2019-11-04] MEDS: Lyrica 50MG PO SCH ×2 (09:51→21:18)
[2019-11-04] MEDS: PRADAXA 75 MG PO SCH ×2 (09:52→21:18)
[2019-11-04] MEDS: Imdur 30 MG PO SCH (09:52)
[2019-11-04] MEDS: Cordarone 200 MG PO SCH (09:52)
[2019-11-04] MEDS: ECOTRIN 81 MG PO SCH (09:52)
[2019-11-04] MEDS: Apresoline 25 MG TABLET PO SCH ×3 (09:52→21:18)
[2019-11-04] MEDS: Coreg 6.25 MG PO SCH ×2 (09:53→21:18)
[2019-11-04] MEDS: Protonix 40MG Tablet PO SCH (09:53)
[2019-11-04] MEDS: Zaroxolyn 2.5 MG PO SCH (09:53)
[2019-11-04] MEDS: ZYLOPRIM 100 MG PO SCH ×2 (09:53→21:18)
[2019-11-04] MEDS: Lantus Insulin SQ SCH (21:18)
[2019-11-05] MEDS: Sodium Chloride 0.9% 500 ML 500 ML IV SCH (01:48)
[2019-11-05 05:17] LABS: Hematocrit 35.8 % (35-47); Hemoglobin 11.2 gm/dl (12.0-16.0); Mean Cell Volume 98.9 fl (78-100); Mean Corpuscular Hemoglobin 30.9 pg (26-32); Mean Corpuscular Hgb Concent. 31.3 g/dl (32-36); Mean Platelet Volume 11.7 fl (7.5-11.0); Platelet Count 150 K/mm3 (150-450); Red Blood Count 3.62 M/mm3 (4.1-5.4); Red Cell Distribution Width 17.7 % (11.5-14.0); White Blood Count 6.7 K/mm3 (4.0-10.5)
[2019-11-05 05:37] LABS: ANION GAP 5.8 MEQ/L (5-15); Calcium 8.6 mg/dL (8.4-10.2); Creatinine 1 1.07 mg/dL (0.52-1.04); Potassium 3.4 mmol/L (3.5-5.1)
[2019-11-05 06:52] VITALS: O2SAT 94
[2019-11-05] MEDS: HUMALOG SQ SCH ×2 (07:56→11:37)
--- NOTE | 2019-11-05 08:57 | PCM.DS ---
Discharge Summary Date of Admission: 11/03/19 06:27 Admitting Physician: AMANDEEP SIEGEL Primary Care Provider: LUIS GALLOWAY INDER Allergies Allergies morphine Allergy (Severe, Verified 11/03/19 04:25) anaphylaxis pt went into respiratory failure and acute renal failure the last time she had morphine. "I was in a coma for a week" adhesive Allergy (Mild, Verified 11/03/19 04:25) Blisters aspirin Allergy (Verified 11/03/19 04:25) Difficulty Breathing PT STATES THAT SHE CAN TAKE ASPIRIN 81 MG BUT NOTHING HIGHER IN DOSE. Penicillins Allergy (Verified 11/03/19 04:25) Rash povidone-iodine [From Betadine] Allergy (Verified 11/03/19 04:25) BLISTERES soap [From Betadine] Allergy (Verified 11/03/19 04:25) Blisters Hospital Summary - Hospital Course Hospital Course: Pt is 69 yo female with DM, asthma, atrial fibrillation, and obesity who was admitted through ER after a fall with knee pain, found to have hypokalemia and acute renal injury. She was given IV and po potassium and her diuretics were held. She was given increased fluid after her eGFR did not rise on her second hospital day. This morning her eGFR is in the 50s, which appears to be her baseline. She is still feeling "sore" but has been trying to be up walking as much as possible. Still c/o R knee pain. Pt will be discharged to home, where she has home PT. F/u with me next and will need f/u scheduled with Dr. Thorne's office. - Vitals & Intake/Output Vital Signs: Vital Signs Temperature 97.8 F 11/05/19 03:00 Pulse Rate 48 L 11/05/19 06:51 Respiratory Rate 16 11/05/19 08:00 Blood Pressure 132/62 11/05/19 06:51 O2 Sat by Pulse Oximetry 94 L 11/05/19 07:09 Intake & Output: Intake & Output 11/02/19 11/03/19 11/04/19 11/05/19 11:59 11:59 11:59 11:59 Intake Total 360 1609 2166 Output Total 400 Balance 360 1209 2166 Weight 125 kg - Lab Result Diagrams: 11/05/19 04:42 07/31/20 04:42 Lab Results-Last 24 Hrs: Accuchecks Date 11/05/19 Date 11/04/19 Date 11/04/19 Date 11/04/19 Time 07:30 Time 21:30 Time 16:30 Time 11:30 Accucheck Value: 142 Accucheck Value: 185 Accucheck Value: 215 Accucheck Value: 279 Lab Results-Last 24 Hours 11/05/19 11/05/19 Range/Units 04:42 04:42 WBC 6.7 (4.0-10.5) K/mm3 RBC 3.62 L (4.1-5.4) M/mm3 Hgb 11.2 L (12.0-16.0) gm/dl Hct 35.8 (35-47) % MCV 98.9 (78-100) fl MCH 30.9 (26-32) pg MCHC 31.3 L (32-36) g/dl RDW 17.7 H (11.5-14.0) % Plt Count 150 (150-450) K/mm3 MPV 11.7 H (7.5-11.0) fl Sodium 136 L (137-145) mmol/L Potassium 3.4 L D (3.5-5.1) mmol/L Chloride 101 (98-107) mmol/L Carbon Dioxide 32 H (22-30) mmol/L Anion Gap 5.8 (5-15) MEQ/L BUN 32 H (7-17) mg/dL Creatinine 1.07 H (0.52-1.04) mg/dL Estimated GFR 53.9 ML/MIN Glucose 143 H (74-106) mg/dL Calcium 8.6 (8.4-10.2) mg/dL Micro Results-Entire Visit: Accuchecks Date 11/05/19 Date 11/04/19 Date 11/04/19 Date 11/04/19 Time 07:30 Time 21:30 Time 16:30 Time 11:30 Accucheck Value: 142 Accucheck Value: 185 Accucheck Value: 215 Accucheck Value: 279 - Radiology Exams Ordered Rad Exams-Entire Visit: Radiology Procedures Category Date Time Status ARTERIAL BILAT LOWER EXTREMITY [US] Routine Exams 11/03/19 11:23 Completed VENOUS UNILAT/LIMITED EXTREMIT [US] Stat Exams 11/03/19 11:23 Completed - Procedures and Test Procedures and Tests throughout Hospitalization: Therapy Orders & Screens 11/03/19 08:07 Oxygen NASAL CANNULA 3 lpm Comment: Diagnosis: Generalized weakness 11/03/19 09:08 EKG ROUTINE Comment: Diagnosis: Generalized weakness 11/03/19 11:05 PT Eval & Treat (MD Order) ROUTINE Reason for Eval:: knee germain at home Diagnosis: Generalized weakness 11/03/19 21:00 BiPap/CPAP ROUTINE Comment: OUR UNIT PER HOME SETTINGS Diagnosis: Generalized weakness Discharge Exam General Appearance: no apparent distress, obese Neurologic Exam: alert, oriented x 3 Eye Exam: eyes nml inspection Ears, Nose, Throat Exam: moist mucous membranes Neck Exam: normal inspection Respiratory Exam: normal breath sounds, lungs clear, No crackles/rales, No rhonchi, No wheezing Cardiovascular Exam: regular rate/rhythm, normal heart sounds, No murmur Gastrointestinal/Abdomen Exam: soft, normal bowel sounds, No tenderness Extremity Exam: swelling (trace pretibial edema; tender to palp.) Skin Exam: normal color, warm, dry, No rash Final Diagnosis/Problem List - Final Discharge Diagnosis/Problem (1) Acute renal injury Current Visit: Yes Status: Resolved Code(s): N17.9 - ACUTE KIDNEY FAILURE, UNSPECIFIED (2) Falls Current Visit: Yes Status: Acute Assessment & Plan: continue home PT Code(s): W19.XXXA - UNSPECIFIED FALL, INITIAL ENCOUNTER (3) Hypokalemia Current Visit: Yes Status: Resolved Code(s): E87.6 - HYPOKALEMIA (4) Knee pain, right Current Visit: Yes Status: Acute Code(s): M25.561 - PAIN IN RIGHT KNEE (5) Weakness Current Visit: Yes Status: Chronic Code(s): R53.1 - WEAKNESS (6) Chest pain Current Visit: No Status: Chronic Assessment & Plan: ruled out for MT, again. Continue chronic f/u with cardiology (Dr. Marquez). Code(s): R07.9 - CHEST PAIN, UNSPECIFIED (7) Diabetes mellitus Current Visit: No Status: Chronic Code(s): E11.9 - TYPE 2 DIABETES MELLITUS WITHOUT COMPLICATIONS (8) Essential hypertension Current Visit: No Status: Chronic Code(s): I10 - ESSENTIAL (PRIMARY) HYPERTENSION (9) Leg pain Current Visit: No Status: Acute - Discharge Disposition: Home, Self-Care Condition: Stable Prescriptions: New Docusate Sodium 100 mg [Colace 100 MG] 100 mg PO DAILY #30 cap Continue HydrALAzine HCL 25 MG TAB [Apresoline 25 MG TABLET] 25 mg PO TID Torsemide 20 mg [Demadex 20 mg] 40 mg PO DAILY Allopurinol 100 mg [Zyloprim 100 mg] 100 mg PO BID Dabigatran Etexilate Mesylate [Pradaxa] 150 mg PO BID Ranolazine [Ranexa] 1,000 mg PO BID Sertraline HCl 50 mg [Zoloft 50 mg Tablet] 50 mg PO DAILY Isosorbide Mononitrate 30 mg [Imdur 30 MG] 30 mg PO DAILY Carvedilol 12.5 mg [Coreg 12.5 mg] 6.25 mg PO BID Amiodarone HCl 200 mg [Cordarone 200 MG] 200 mg PO DAILY PANTOPRAZOLE 40 mg Tablet [Protonix 40MG Tablet] 40 mg PO DAILY Aspirin 81 mg PO DAILY Potassium Chloride 10 Meq Tab* [Klor Con 10 MEQ] 20 meq PO BID Pregabalin 50 mg [Lyrica 50MG] 50 mg PO BID Insulin Lispro [Humalog] 14 unit SQ BREAKFAST Insulin Glargine [Lantus Insulin] 26 unit SQ QHS Torsemide 20 mg [Demadex 20 mg] 20 mg PO HS Metolazone 2.5 mg [Zaroxolyn 2.5 MG] 2.5 mg PO DAILY Insulin Lispro [Humalog] 12 unit SQ LUNCH Insulin Lispro [Humalog] 10 unit SQ DINNER Additional Instructions: [facility] will contact you to resume your Home Health Care. You may call them at [phone] if you have any questions or concerns. If you start having frequent bowel movements or diarrhea, stop taking the colace. Follow up with: LUIS GALLOWAY MD [Primary Care Provider] - 1 Week
[2019-11-05] MEDS: ECOTRIN 81 MG PO SCH (09:07)
[2019-11-05] MEDS: Apresoline 25 MG TABLET PO SCH (09:07)
[2019-11-05] MEDS: Coreg 6.25 MG PO SCH (09:07)
[2019-11-05] MEDS: Zaroxolyn 2.5 MG PO SCH (09:07)
[2019-11-05] MEDS: Lyrica 50MG PO SCH (09:07)
[2019-11-05] MEDS: ZYLOPRIM 100 MG PO SCH (09:08)
[2019-11-05] MEDS: Ranexa 500 MG PO SCH (09:08)
[2019-11-05] MEDS: Klor Con 10 MEQ PO SCH (09:08)
[2019-11-05] MEDS: Protonix 40MG Tablet PO SCH (09:08)
[2019-11-05] MEDS: Cordarone 200 MG PO SCH (09:08)
[2019-11-05] MEDS: ZOLOFT 50 MG TABLET PO SCH (09:08)
[2019-11-05] MEDS: PRADAXA 75 MG PO SCH (09:09)
[2019-11-05] MEDS: Imdur 30 MG PO SCH (09:09)
[2019-11-05] MEDS: Miralax Powder 17GM PACKET PO SCH (09:09)
[2019-11-05 11:24] VITALS: BP 145/63; PULSE 52
== END 2019-11-05 12:30 | disposition home health service (06) ==
LOC: ED 03:50 → INTOOBSV 06:27 → MED SURG 06:27
PROVIDERS: ADMIT Family Medicine; ATTEND Family Medicine
DX: N17.9 Acute kidney failure, unspecified (principal); M25.561 Pain in right knee; E87.6 Hypokalemia; W19.XXXA Unspecified fall, initial encounter; R53.1 Weakness; R07.9 Chest pain, unspecified; E11.9 Type 2 diabetes mellitus without complications; M79.604 Pain in right leg; M79.605 Pain in left leg; I48.91 Unspecified atrial fibrillation; R06.02 Shortness of breath; I10 Essential (primary) hypertension; Z79.899 Other long term (current) drug therapy
CPT/HCPCS: 36000; 36415; 73562; 80048; 80053; 81001; 82962; 83735; 84132; 84484; 85025; 85027; 93005; 93041; 93268; 93925; 93971; 94660; 94760; 94762; 99284; G0378; J1817; J3480; 97110-GP; A9270-GY

== ENCOUNTER 2020-02-01 18:05 | Emergency (ER) | payer MEDICARE, BC ==
[2020-02-01 18:47] LABS: Absolute Neutrophil Ct (ANC) 15.65 (1.4-6.9); BASOPHIL % 0.1 % (0.0-0.4); Basophil (Absolute #) 0.02 (0-0.4); Eosinophil % 0.1 % (0.00-5.0); Eosinophil (Absolute #) 0.01 (0-0.5); Hematocrit 44.2 % (35-47); Hemoglobin 14.3 gm/dl (12.0-16.0); Lymphocyte (Absolute #) 0.87 (1.0-4.6); Mean Cell Volume 95.5 fl (78-100); Mean Corpuscular Hemoglobin 30.9 pg (26-32); Mean Corpuscular Hgb Concent. 32.4 g/dl (32-36); Mean Platelet Volume 12.5 fl (7.5-11.0); Monocyte (Absolute #) 0.94 (0.0-1.3); Monocytes % 5.4 % (0.0-12.0); Neutrophil % 89.4 % (36.0-66.0); Platelet Count 187 K/mm3 (150-450); Red Blood Count 4.63 M/mm3 (4.1-5.4); Red Cell Distribution Width 16.3 % (11.5-14.0); White Blood Count 17.5 K/mm3 (4.0-10.5)
--- NOTE | 2020-02-01 18:48 | ERPHSYRPT ---
- History of Present Illness Source: patient, other (Step daughter) Patient Subjective Stated Complaint: Pt brought to the ER by her daughter, upon awakening, dizzy, N&V Triage Nursing Assessment: Pt brought to the ER by her daughter, hypertensive, febrile, lethargic, pulses bounding, skin flushed, hot, and dry, edema to elisha low ext, denies pain but states that she has a headache, Physician History: 69 yo wf w lethargy/fever/mild coryza/vomiting x1 for 2 days. Pt denies chest pain/dysuria/hematuria/diarrhea/melena. She has a chronic cough. Saw PCP on 01/28/20 for chronic CHF symptoms, and diuretic were increased. Timing/Duration: other (2 days) Fever Severity: mild Associated Symptoms: confusion, cough, headache, nausea/vomiting, rhinorrhea, shortness of breath, No abdominal pain, No chest pain, No diaphoresis, No muscle aches, No rash, No sore throat, No stiff neck, No syncope Allergies/Adverse Reactions: morphine Allergy (Severe, Verified 02/01/20 18:26) anaphylaxis pt went into respiratory failure and acute renal failure the last time she had morphine. "I was in a coma for a week" adhesive Allergy (Mild, Verified 02/01/20 18:26) Blisters aspirin Allergy (Verified 02/01/20 18:26) Difficulty Breathing PT STATES THAT SHE CAN TAKE ASPIRIN 81 MG BUT NOTHING HIGHER IN DOSE. Penicillins Allergy (Verified 02/01/20 18:26) Rash povidone-iodine [From Betadine] Allergy (Verified 02/01/20 18:26) BLISTERES soap [From Betadine] Allergy (Verified 02/01/20 18:26) Blisters Home Medications: Allopurinol 100 mg [Zyloprim 100 mg] 100 mg PO BID 11/18/18 [History] Amiodarone HCl 200 mg [Cordarone 200 MG] 200 mg PO DAILY 11/18/18 [History] Aspirin 81 mg PO DAILY 11/18/18 [History] Carvedilol 12.5 mg [Coreg 12.5 mg] 6.25 mg PO BID 11/18/18 [History] Dabigatran Etexilate Mesylate [Pradaxa] 150 mg PO BID 11/18/18 [History] HydrALAzine HCL 25 MG TAB [Apresoline 25 MG TABLET] 25 mg PO TID 11/18/18 [History] Isosorbide Mononitrate 30 mg [Imdur 30 MG] 30 mg PO DAILY 11/18/18 [History] PANTOPRAZOLE 40 mg Tablet [Protonix 40MG Tablet] 40 mg PO DAILY 11/18/18 [History] Ranolazine [Ranexa] 1,000 mg PO BID 11/18/18 [History] Sertraline HCl 50 mg [Zoloft 50 mg Tablet] 50 mg PO DAILY 11/18/18 [History] Torsemide 20 mg [Demadex 20 mg] 40 mg PO DAILY 11/18/18 [History] Potassium Chloride 10 Meq Tab* [Klor Con 10 MEQ] 20 meq PO BID 01/02/19 [History] Insulin Glargine [Lantus Insulin] 26 unit SQ QHS 03/23/19 [History] Insulin Lispro [Humalog] 14 unit SQ BREAKFAST 03/23/19 [History] Pregabalin 50 mg [Lyrica 50MG] 50 mg PO BID 03/23/19 [History] Insulin Lispro [Humalog] 10 unit SQ DINNER 11/03/19 [History] Insulin Lispro [Humalog] 12 unit SQ LUNCH 11/03/19 [History] Metolazone 2.5 mg [Zaroxolyn 2.5 MG] 2.5 mg PO DAILY 11/03/19 [History] Torsemide 20 mg [Demadex 20 mg] 20 mg PO HS 11/03/19 [History] Bumetanide 4 mg PO DAILY 02/01/20 [History] Hx Tetanus, Diphtheria Vaccination/Date Given: Yes Hx Influenza Vaccination/Date Given: Yes Hx Pneumococcal Vaccination/Date Given: Yes Travel Risk - International Travel Have you traveled outside of the country in past 3 weeks: No - Coronavirus Screening Are you exhibiting any of the following symptoms?: No Close contact with a COVID-19 positive Pt in past 14-21 Days: No - Review of Systems Constitutional: Fever, Chills, Fatigue, Lethargy, Malaise Eyes: No Symptoms Ears, Nose, & Throat: Nose Discharge Respiratory: Cough, Dyspnea Cardiac: Edema, No Chest Pain, No Palpitations, No Syncope, No Orthopnea, No PND Abdominal/Gastrointestinal: Nausea, Vomiting, No Diarrhea, No Constipation, No Hematemesis, No Hematochezia, No Melena, No Dysphagia, No Appetite Changes Genitourinary Symptoms: No Symptoms Musculoskeletal: No Symptoms Skin: No Symptoms Neurological: No Symptoms Psychological: No Symptoms Endocrine: No Symptoms Hematologic/Lymphatic: No Symptoms Immunological/Allergic: No Symptoms - Past Medical History Pertinent Past Medical History: Yes Neurological History: Peripheral Neuropathy ENT History: No Pertinent History Cardiac History: Angina, Arrhythmia, Congestive Heart Failure, High Cholesterol, Hypertension Respiratory History: COPD, Pneumonia Endocrine Medical History: Diabetes Type II Musculoskeletal History: Arthritis, Fractures GI Medical History: No Pertinent History History: Other Psycho-Social History: No Pertinent History Female Reproductive Disorders: No Pertinent History Other Medical History: Impaired kidney function - Past Surgical History Past Surgical History: Yes Neuro Surgical History: No Pertinent History Cardiac: No Pertinent History Respiratory: No Pertinent History Gastrointestinal: Appendectomy Genitourinary: No Pertinent History Musculoskeletal: Orthopedic Surgery Female Surgical History: Hysterectomy Other Surgical History: Multiple hand surgeries - Social History Smoking Status: Former smoker How long have you smoked: 1 year Exposure to second hand smoke: No Alcohol Use: None Drug Use: none Patient Lives Alone: No Significant Family History: diabetes, hypertension - Nursing Vital Signs Nursing Vital Signs: Initial Vital Signs Temperature 100.3 F 02/01/20 18:15 Pulse Rate 78 02/01/20 18:15 Blood Pressure 160/75 02/01/20 18:15 O2 Sat by Pulse Oximetry 92 L 02/01/20 18:15 Pain Scale Pain Intensity 0 - Physical Exam General Appearance: mild distress, lethargy Eye Exam: PERRL/EOMI, post op pupil defect (L) ENT Exam: normal ENT inspection, no apparent trauma, TMs normal, pharynx normal Neck Exam: normal inspection, non-tender, supple Respiratory Exam: crackles/rales (L base) Cardiovascular/Chest Exam: regular rate/rhythm (2/6 NAYELY) Gastrointestinal/Abdominal Exam: soft, non tender, no distention Extremity Exam: non-tender Neurologic Exam: alert (Disoriented to time), cooperative, sensation nml, No motor deficits, No sensory deficit, No motor weakness Skin Exam: normal color, warm, dry Lymphatic: No adenopathy SpO2 Interpretation: normal SpO2: 92 O2 Delivery: Room Air - Course EKG Interpreted by Me: RATE (NSR/LAFB/Normal QT-QTc/ST-T wave changes) - Radiology Exams Chest X-ray Interpretation: Interpreted by me (CXR neg per ER read) - CT Exams Chest CT Interpretation: Discussed w/radiologist (Neg) Abdomen/Pelvis CT Interpretation: Discussed w/radiologist (Nothing acute) Ordered Tests: Active Orders 24 hr Category Date Time Status Hopper Feeder STAT Care 02/01/20 18:34 Completed EKG-ER Only STAT Care 02/01/20 18:21 Completed IV Insertion STAT Care 02/01/20 18:34 Completed Oxygen-ED Only Nasal Cannula 2 lpm Care 02/01/20 18:34 Completed POCT Glucose Check STAT Care 02/01/20 18:39 Completed cath [Cath for Specimen-Straight] STAT Care 02/01/20 18:34 Completed ABDOMEN AND PELVIS W/0 CONTRAS [CT] Stat Exams 02/01/20 21:53 Taken CHEST 1 VIEW (PORTABLE) Stat Exams 02/01/20 18:22 Taken CHEST WITHOUT CONTRAST [CT] Stat Exams 02/01/20 20:03 Taken BLOOD CULTURE Stat Lab 02/01/20 19:00 Received CBC W DIFF Stat Lab 02/01/20 18:40 Completed CMP Stat Lab 02/01/20 18:40 Completed Lactic Acid Stat Lab 02/01/20 18:21 Completed Lactic Acid Stat Lab 02/01/20 21:03 Completed NT PRO BNP Stat Lab 02/01/20 18:40 Completed POCT GLUCOSE Stat Lab 02/01/20 18:37 Completed PROTIME WITH INR Stat Lab 02/01/20 18:40 Completed PTT Stat Lab 02/01/20 18:40 Completed TROPONIN Q3H Lab 02/01/20 18:40 Completed TROPONIN Q3H Lab 02/01/20 21:00 Completed UA W/RFX UR CULTURE Stat Lab 02/01/20 18:33 Completed Medication Summary Discontinued Medications Generic Name Dose Route Start Last Admin Trade Name Freq PRN Reason Stop Dose Admin Acetaminophen 1,000 mg 02/01/20 22:33 02/01/20 22:36 Tylenol Extra Strength 500 Mg PO 02/01/20 22:34 1,000 mg STAT ONE Administration Acetaminophen Confirm 02/01/20 22:34 Tylenol Extra Strength 500 Mg Administered 02/01/20 22:35 Dose 1,000 mg .ROUTE .STK-MED ONE Sodium Chloride 1,000 mls @ 999 mls/hr 02/01/20 23:10 02/01/20 23:23 Sodium Chloride 0.9% 1000 Ml IV 02/02/20 00:10 999 mls/hr .Q1H1M STA Administration Meropenem 1 g/ Sodium Chloride 100 mls @ 200 mls/hr 02/01/20 23:12 02/01/20 23:23 IV 02/01/20 23:41 200 mls/hr STAT ONE Administration Sodium Chloride Confirm 02/01/20 23:15 Sodium Chloride 100ml Mini-Bag Plus Administered 02/01/20 23:16 Dose 100 mls @ ud IV .STK-MED ONE Sodium Chloride Confirm 02/01/20 23:15 Sodium Chloride 0.9% 1000 Ml Administered 02/01/20 23:16 Dose 1,000 mls @ ud .ROUTE .STK-MED ONE Meropenem Confirm 02/01/20 23:15 Merrem 1 Gm Administered 02/01/20 23:16 Dose 1 g IV .STK-MED ONE Lab/Rad Data: Laboratory Result Diagrams 02/01/20 18:40 02/01/20 18:40 Laboratory Results 02/01/20 02/01/20 02/01/20 Range/Units 21:03 21:00 18:56 WBC (4.0-10.5) K/mm3 RBC (4.1-5.4) M/mm3 Hgb (12.0-16.0) gm/dl Hct (35-47) % MCV (78-100) fl MCH (26-32) pg MCHC (32-36) g/dl RDW (11.5-14.0) % Plt Count (150-450) K/mm3 MPV (7.5-11.0) fl Gran % (36.0-66.0) % Eos # (Auto) (0-0.5) Absolute Lymphs (auto) (1.0-4.6) Absolute Monos (auto) (0.0-1.3) Lymphocytes % (24.0-44.0) % Monocytes % (0.0-12.0) % Eosinophils % (0.00-5.0) % Basophils % (0.0-0.4) % Absolute Granulocytes (1.4-6.9) Basophils # (0-0.4) PT (9.95-12.35) SECONDS INR (0.8-3.0) APTT (25.3-37.0) SECONDS Sodium (137-145) mmol/L Potassium (3.5-5.1) mmol/L Chloride (98-107) mmol/L Carbon Dioxide (22-30) mmol/L Anion Gap (5-15) MEQ/L BUN (7-17) mg/dL Creatinine (0.52-1.04) mg/dL Estimated GFR ML/MIN Glucose (74-106) mg/dL POC Glucometer (74 to 106) mg/dL Lactic Acid 2.0 (0.4-2.0) Calcium (8.4-10.2) mg/dL Total Bilirubin (0.2-1.3) mg/dL AST (14-36) U/L ALT (0-35) U/L Alkaline Phosphatase (38-126) U/L Troponin I 0.039 H* (0.000-0.034) ng/mL NT-Pro-B Natriuret Pep (0-900) pg/mL Serum Total Protein (6.3-8.2) g/dL Albumin (3.5-5.0) g/dL Urine Color (YELLOW) Urine Appearance (CLEAR) Urine pH (5-6) Ur Specific Kellogg (1.005-1.025) Urine Protein (Negative) Urine Ketones (NEGATIVE) Urine Blood (0-5) Kervin/ul Urine Nitrite (NEGATIVE) Urine Bilirubin (NEGATIVE) Urine Urobilinogen (0-1) mg/dL Ur Leukocyte Esterase (NEGATIVE) Urine WBC (Auto) (0-5) /HPF Urine RBC (Auto) (0-2) /HPF U Epithel Cells (Auto) (FEW) /HPF Urine Bacteria (Auto) (NEGATIVE) /HPF Urine Culture Reflexed (NO) Urine Glucose (NEGATIVE) mg/dL SARS-CoV-2 (PCR) NEGATIVE (NEGATIVE) 10/27/20 10/27/20 10/27/20 Range/Units 18:40 18:40 18:40 WBC (4.0-10.5) K/mm3 RBC (4.1-5.4) M/mm3 Hgb (12.0-16.0) gm/dl Hct (35-47) % MCV (78-100) fl MCH (26-32) pg MCHC (32-36) g/dl RDW (11.5-14.0) % Plt Count (150-450) K/mm3 MPV (7.5-11.0) fl Gran % (36.0-66.0) % Eos # (Auto) (0-0.5) Absolute Lymphs (auto) (1.0-4.6) Absolute Monos (auto) (0.0-1.3) Lymphocytes % (24.0-44.0) % Monocytes % (0.0-12.0) % Eosinophils % (0.00-5.0) % Basophils % (0.0-0.4) % Absolute Granulocytes (1.4-6.9) Basophils # (0-0.4) PT 15.2 H (9.95-12.35) SECONDS INR 1.34 (0.8-3.0) APTT 53.3 H (25.3-37.0) SECONDS Sodium (137-145) mmol/L Potassium (3.5-5.1) mmol/L Chloride (98-107) mmol/L Carbon Dioxide (22-30) mmol/L Anion Gap (5-15) MEQ/L BUN (7-17) mg/dL Creatinine (0.52-1.04) mg/dL Estimated GFR ML/MIN Glucose (74-106) mg/dL POC Glucometer (74 to 106) mg/dL Lactic Acid (0.4-2.0) Calcium (8.4-10.2) mg/dL Total Bilirubin (0.2-1.3) mg/dL AST (14-36) U/L ALT (0-35) U/L Alkaline Phosphatase (38-126) U/L Troponin I 0.026 (0.000-0.034) ng/mL NT-Pro-B Natriuret Pep 321 (0-900) pg/mL Serum Total Protein (6.3-8.2) g/dL Albumin (3.5-5.0) g/dL Urine Color (YELLOW) Urine Appearance (CLEAR) Urine pH (5-6) Ur Specific Kellogg (1.005-1.025) Urine Protein (Negative) Urine Ketones (NEGATIVE) Urine Blood (0-5) Kervin/ul Urine Nitrite (NEGATIVE) Urine Bilirubin (NEGATIVE) Urine Urobilinogen (0-1) mg/dL Ur Leukocyte Esterase (NEGATIVE) Urine WBC (Auto) (0-5) /HPF Urine RBC (Auto) (0-2) /HPF U Epithel Cells (Auto) (FEW) /HPF Urine Bacteria (Auto) (NEGATIVE) /HPF Urine Culture Reflexed (NO) Urine Glucose (NEGATIVE) mg/dL SARS-CoV-2 (PCR) (NEGATIVE) 02/01/20 02/01/20 02/01/20 Range/Units 18:40 18:40 18:37 WBC 17.5 H (4.0-10.5) K/mm3 RBC 4.63 (4.1-5.4) M/mm3 Hgb 14.3 (12.0-16.0) gm/dl Hct 44.2 (35-47) % MCV 95.5 (78-100) fl MCH 30.9 (26-32) pg MCHC 32.4 (32-36) g/dl RDW 16.3 H (11.5-14.0) % Plt Count 187 (150-450) K/mm3 MPV 12.5 H (7.5-11.0) fl Gran % 89.4 H (36.0-66.0) % Eos # (Auto) 0.01 (0-0.5) Absolute Lymphs (auto) 0.87 L (1.0-4.6) Absolute Monos (auto) 0.94 (0.0-1.3) Lymphocytes % 5.0 L (24.0-44.0) % Monocytes % 5.4 (0.0-12.0) % Eosinophils % 0.1 (0.00-5.0) % Basophils % 0.1 (0.0-0.4) % Absolute Granulocytes 15.65 H (1.4-6.9) Basophils # 0.02 (0-0.4) PT (9.95-12.35) SECONDS INR (0.8-3.0) APTT (25.3-37.0) SECONDS Sodium 136 L (137-145) mmol/L Potassium 4.0 D (3.5-5.1) mmol/L Chloride 98 (98-107) mmol/L Carbon Dioxide 30 (22-30) mmol/L Anion Gap 11.6 (5-15) MEQ/L BUN 21 H (7-17) mg/dL Creatinine 1.05 H (0.52-1.04) mg/dL Estimated GFR 55.1 ML/MIN Glucose 168 H (74-106) mg/dL POC Glucometer 165 H (74 to 106) mg/dL Lactic Acid (0.4-2.0) Calcium 9.1 (8.4-10.2) mg/dL Total Bilirubin 0.80 (0.2-1.3) mg/dL AST 40 H (14-36) U/L ALT 25 (0-35) U/L Alkaline Phosphatase 96 (38-126) U/L Troponin I (0.000-0.034) ng/mL NT-Pro-B Natriuret Pep (0-900) pg/mL Serum Total Protein 7.1 (6.3-8.2) g/dL Albumin 4.1 (3.5-5.0) g/dL Urine Color (YELLOW) Urine Appearance (CLEAR) Urine pH (5-6) Ur Specific Kellogg (1.005-1.025) Urine Protein (Negative) Urine Ketones (NEGATIVE) Urine Blood (0-5) Kervin/ul Urine Nitrite (NEGATIVE) Urine Bilirubin (NEGATIVE) Urine Urobilinogen (0-1) mg/dL Ur Leukocyte Esterase (NEGATIVE) Urine WBC (Auto) (0-5) /HPF Urine RBC (Auto) (0-2) /HPF U Epithel Cells (Auto) (FEW) /HPF Urine Bacteria (Auto) (NEGATIVE) /HPF Urine Culture Reflexed (NO) Urine Glucose (NEGATIVE) mg/dL SARS-CoV-2 (PCR) (NEGATIVE) 02/01/20 02/01/20 Range/Units 18:33 18:21 WBC (4.0-10.5) K/mm3 RBC (4.1-5.4) M/mm3 Hgb (12.0-16.0) gm/dl Hct (35-47) % MCV (78-100) fl MCH (26-32) pg MCHC (32-36) g/dl RDW (11.5-14.0) % Plt Count (150-450) K/mm3 MPV (7.5-11.0) fl Gran % (36.0-66.0) % Eos # (Auto) (0-0.5) Absolute Lymphs (auto) (1.0-4.6) Absolute Monos (auto) (0.0-1.3) Lymphocytes % (24.0-44.0) % Monocytes % (0.0-12.0) % Eosinophils % (0.00-5.0) % Basophils % (0.0-0.4) % Absolute Granulocytes (1.4-6.9) Basophils # (0-0.4) PT (9.95-12.35) SECONDS INR (0.8-3.0) APTT (25.3-37.0) SECONDS Sodium (137-145) mmol/L Potassium (3.5-5.1) mmol/L Chloride (98-107) mmol/L Carbon Dioxide (22-30) mmol/L Anion Gap (5-15) MEQ/L BUN (7-17) mg/dL Creatinine (0.52-1.04) mg/dL Estimated GFR ML/MIN Glucose (74-106) mg/dL POC Glucometer (74 to 106) mg/dL Lactic Acid 2.8 H (0.4-2.0) Calcium (8.4-10.2) mg/dL Total Bilirubin (0.2-1.3) mg/dL AST (14-36) U/L ALT (0-35) U/L Alkaline Phosphatase (38-126) U/L Troponin I (0.000-0.034) ng/mL NT-Pro-B Natriuret Pep (0-900) pg/mL Serum Total Protein (6.3-8.2) g/dL Albumin (3.5-5.0) g/dL Urine Color YELLOW (YELLOW) Urine Appearance CLEAR (CLEAR) Urine pH 6.0 (5-6) Ur Specific Kellogg 1.008 (1.005-1.025) Urine Protein NEGATIVE (Negative) Urine Ketones NEGATIVE (NEGATIVE) Urine Blood NEGATIVE (0-5) Kervin/ul Urine Nitrite NEGATIVE (NEGATIVE) Urine Bilirubin NEGATIVE (NEGATIVE) Urine Urobilinogen NEGATIVE (0-1) mg/dL Ur Leukocyte Esterase NEGATIVE (NEGATIVE) Urine WBC (Auto) 0-2 (0-5) /HPF Urine RBC (Auto) NONE (0-2) /HPF U Epithel Cells (Auto) RARE (FEW) /HPF Urine Bacteria (Auto) NONE (NEGATIVE) /HPF Urine Culture Reflexed NO (NO) Urine Glucose NEGATIVE (NEGATIVE) mg/dL SARS-CoV-2 (PCR) (NEGATIVE) - Progress Progress: improved Progress Note: 02/01/20 22:[address] Reyna 02/01/20 22:[address] Schroeder at [facility]. 02/01/20 22:43 Pt stable throughout stay wo chest pain/dyspnea/N/V. 02/02/20 02:21 CT of chest/ab-pelvis neg per Rad. 1L NS bolus given along w 1gm Meropenem. Pt stable when care assumed by ambulance. Discussed with : Shelby Counseled pt/family regarding: lab results, diagnosis, rad results - Departure Departure Disposition: Transfer Clinical Impression: NSTEMI (non-ST elevated myocardial infarction), Leukocytosis, Fever Condition: Stable Critical Care Time: No Referrals: AMANDEEP REYNA [Primary Care Provider] -
[2020-02-01 19:04] LABS: Appearance CLEAR (CLEAR); Bilirubin NEGATIVE (NEGATIVE); Blood NEGATIVE Ery/ul (0-5); Epithelial Cells RARE /HPF (FEW); Glucose NEGATIVE (NEGATIVE); Ketones NEGATIVE (NEGATIVE); Leukocyte Esterase NEGATIVE (NEGATIVE); Nitrite NEGATIVE (NEGATIVE); Protein,Urine Dip NEGATIVE (Negative); Specific Gravity 1.008 (1.005-1.025); Urobilinogen NEGATIVE mg/dL (0-1); WBC 0-2 /HPF (0-5)
[2020-02-01 19:10] LABS: INR 1.34 (0.8-3.0); PROTIME 15.2 SECONDS (9.95-12.35)
[2020-02-01 19:13] LABS: PTT 53.3 SECONDS (25.3-37.0)
[2020-02-01 19:23] LABS: ALBUMIN 4.1 g/dL (3.5-5.0); ANION GAP 11.6 MEQ/L (5-15); BILIRUBIN,TOTAL 0.8 mg/dL (0.2-1.3); Calcium 9.1 mg/dL (8.4-10.2); Creatinine 1 1.05 mg/dL (0.52-1.04); EST GLOMERULAR FILTRATION RATE 55.1 ML/MIN; Total Protein 7.1 g/dL (6.3-8.2)
[2020-02-01] MEDS ORDERED: TYLENOL EXTRA STRENGTH 500 MG PO ONE (22:33)
[2020-02-01] MEDS ORDERED: TYLENOL EXTRA STRENGTH 500 MG ONE (22:34)
[2020-02-01] MEDS ORDERED: Sodium Chloride 0.9% 1000 ML 1,000 ML IV STA (23:10)
[2020-02-01] MEDS ORDERED: Merrem 1 GM 1 G in Sodium Chloride 100ML MINI-BAG PLUS 100 ML IV ONE (23:12)
[2020-02-01] MEDS ORDERED: Merrem 1 GM IV ONE (23:15)
[2020-02-01] MEDS ORDERED: Sodium Chloride 100ML MINI-BAG PLUS 100 ML IV ONE (23:15)
[2020-02-01] MEDS ORDERED: Sodium Chloride 0.9% 1000 ML 1,000 ML ONE (23:15)
[2020-02-01 23:58] VITALS: BP 130/53; PULSE 69
[2020-02-02 02:24] VITALS: O2SAT 92
--- NOTE | 2020-02-02 08:43 | XRAY ---
Indication: Fever and cough. Suspect Covid 19. Multiple contiguous axial images obtained through the chest without contrast as ordered. Comparison: September 25, 2019. Lungs are inflated with minimal bibasilar dependent atelectasis/scarring. No suspicious pulmonary mass, infiltrate, consolidation, or effusion. Heart is not enlarged. Aorta is normal in course and caliber. No pathologic mediastinal/hilar lymphadenopathy. Bony thorax intact again with mild degenerative changes throughout the spine. CT abdomen/pelvis reported separately. Impression: 1. Continued bibasilar atelectasis/scarring. 2. No new or acute cardiopulmonary abnormalities on this noncontrast exam.
--- NOTE | 2020-02-02 08:43 | XRAY ---
Indication: Fever and weakness. Comparison: September 28, 2019. Portable chest again demonstrates minimal left mid to lower lung subsegmental atelectasis/scarring. Remaining heart and lungs unremarkable. Bony thorax intact. No new/acute findings.
--- NOTE | 2020-02-02 08:47 | XRAY ---
Indication: Left abdomen/flank pain. Multiple contiguous axial images obtained through the abdomen and pelvis without contrast as ordered. Comparison: September 25, 2019. CT chest reported separately. Noncontrasted stomach and bowel loops remain nonobstructed. Stable scattered colonic diverticulosis, appendectomy, and hysterectomy. No free fluid/air. Remaining liver, gallbladder, pancreas, spleen, adrenal glands, kidneys, ureters, and bladder appear unremarkable for noncontrast exam. Stable mild aortoiliac calcifications without AAA. Osseous structures intact again with mild/moderate degenerative changes throughout the spine. Impression: 1. Again colonic diverticulosis without diverticulitis and chronic bony findings. 2. Remaining CT abdomen/pelvis without contrast exam is negative.
== END 2020-02-02 00:20 | disposition home or self-care (01) ==
LOC: ED 18:05
DX: I21.4 Non-ST elevation (NSTEMI) myocardial infarction (principal); D72.829 Elevated white blood cell count, unspecified; R50.9 Fever, unspecified; I50.9 Heart failure, unspecified; I10 Essential (primary) hypertension; E78.00 Pure hypercholesterolemia, unspecified; J44.9 Chronic obstructive pulmonary disease, unspecified; M19.90 Unspecified osteoarthritis, unspecified site; Z79.899 Other long term (current) drug therapy
CPT/HCPCS: 36000; 36415; 71045; 71250; 74176; 80053; 81001; 82962; 83605; 83880; 84484; 85025; 85610; 85730; 87040; 87077; 93005; 93041; 96360; 96365; 99285; P9612; U0003; 82947; A9270-GY

== ENCOUNTER 2020-02-09 14:09 | Inpatient (IN) | payer MEDICARE, BC ==
[2020-02-09] MEDS ORDERED: Zofran 4 MG/2 ML VIAL IV ONE (14:44)
[2020-02-09] MEDS ORDERED: Sodium Chloride 0.9% 1000 ML 1,000 ML IV SCH (14:45)
--- NOTE | 2020-02-09 14:46 | ERPHSYRPT ---
- History of Present Illness Time Seen by Provider: 02/09/20 14:25 Source: patient Exam Limitations: no limitations Patient Subjective Stated Complaint: diarrhea Triage Nursing Assessment: Patient brought back to ED via w/c and transferred to bed with assist of 1. Patient A+O X 3. Patient's skin pink, warm and dry. Patient complains of diarrhea, vomiting, and weakness since last week. Patient was admitted to hospital on 02/01/20 for same symptoms and discharged on 02/05/20. Patient states she feels worse than she did last week. Abdomen soft a nd round with BS X 4. Patient states she has had diarrhea all day and has vomited X 2. Paitent also complains of abdominal pain and low back pain /. Physician History: Patient complains of diarrhea, vomiting, and weakness since last week. Patient was admitted to hospital on 02/01/20 for same symptoms and discharged on 02/05/20. Patient states she feels worse than she did last week. Abdomen soft and round with BS X 4. Patient states she has had diarrhea all day and has vomited X 2. Paitent also complains of abdominal pain and low back pain /. Timing/Duration: other (02/01/2020) Severity: moderate Modifying Factors: Improves With: nothing Associated Symptoms: nausea, vomiting, abdominal pain Allergies/Adverse Reactions: morphine Allergy (Severe, Verified 02/09/20 14:11) anaphylaxis pt went into respiratory failure and acute renal failure the last time she had morphine. "I was in a coma for a week" adhesive Allergy (Mild, Verified 02/09/20 14:11) Blisters aspirin Allergy (Verified 02/09/20 14:11) Difficulty Breathing PT STATES THAT SHE CAN TAKE ASPIRIN 81 MG BUT NOTHING HIGHER IN DOSE. Penicillins Allergy (Verified 02/09/20 14:11) Rash povidone-iodine [From Betadine] Allergy (Verified 02/09/20 14:11) BLISTERES soap [From Betadine] Allergy (Verified 02/09/20 14:11) Blisters Home Medications: Allopurinol 100 mg [Zyloprim 100 mg] 100 mg PO BID 11/18/18 [History] Amiodarone HCl 200 mg [Cordarone 200 MG] 200 mg PO DAILY 11/18/18 [History] Carvedilol 12.5 mg [Coreg 12.5 mg] 6.25 mg PO BID 11/18/18 [History] Dabigatran Etexilate Mesylate [Pradaxa] 150 mg PO BID 11/18/18 [History] Isosorbide Mononitrate 30 mg [Imdur 30 MG] 30 mg PO DAILY 11/18/18 [History] PANTOPRAZOLE 40 mg Tablet [Protonix 40MG Tablet] 40 mg PO DAILY 11/18/18 [History] Ranolazine [Ranexa] 1,000 mg PO BID 11/18/18 [History] Sertraline HCl 50 mg [Zoloft 50 mg Tablet] 50 mg PO DAILY 11/18/18 [History] Potassium Chloride 10 Meq Tab* [Klor Con 10 MEQ] 20 meq PO BID 01/02/19 [H istory] Insulin Glargine [Lantus Insulin] 26 unit SQ QHS 03/23/19 [History] Insulin Lispro [Humalog] 14 unit SQ BREAKFAST 03/23/19 [History] Pregabalin 50 mg [Lyrica 50MG] 50 mg PO BID 03/23/19 [History] Insulin Lispro [Humalog] 10 unit SQ DINNER 11/03/19 [History] Insulin Lispro [Humalog] 12 unit SQ LUNCH 11/03/19 [History] Bumetanide 4 mg PO DAILY 02/09/20 [History] Donepezil HCl 10 mg [Aricept 10 MG] 1 tab PO DAILY 02/09/20 [History] Memantine HCl 1 tab PO BID 02/09/20 [History] Hx Tetanus, Diphtheria Vaccination/Date Given: Yes Hx Influenza Vaccination/Date Given: Yes Hx Pneumococcal Vaccination/Date Given: Yes Immunizations Up to Date: Yes Travel Risk - International Travel Have you traveled outside of the country in past 3 weeks: No - Coronavirus Screening Are you exhibiting any of the following symptoms?: Yes Symptoms: Vomiting/Diarrhea Close contact with a COVID-19 positive Pt in past 14-21 Days: No - Review of Systems Constitutional: No Fever, No Chills Eyes: No Symptoms Ears, Nose, & Throat: No Symptoms Respiratory: No Cough, No Dyspnea Cardiac: No Chest Pain, No Edema, No Syncope Abdominal/Gastrointestinal: Abdominal Pain, Nausea, Vomiting, Diarrhea Genitourinary Symptoms: No Dysuria Musculoskeletal: No Back Pain, No Neck Pain Skin: No Rash Neurological: No Dizziness, No Focal Weakness, No Sensory Changes Psychological: No Symptoms Endocrine: No Symptoms All Other Systems: Reviewed and Negative - Past Medical History Pertinent Past Medical History: Yes Neurological History: Peripheral Neuropathy ENT History: No Pertinent History Cardiac History: Angina, Arrhythmia, Congestive Heart Failure, High Cholesterol, Hypertension Respiratory History: COPD, Pneumonia Endocrine Medical History: Diabetes Type II Musculoskeletal History: Arthritis, Fractures GI Medical History: No Pertinent History History: Other Psycho-Social History: No Pertinent History Female Reproductive Disorders: No Pertinent History Other Medical History: Impaired kidney function - Past Surgical History Past Surgical History: Yes Neuro Surgical History: No Pertinent History Cardiac: No Pertinent History Respiratory: No Pertinent History Gastrointestinal: Appendectomy Genitourinary: No Pertinent History Musculoskeletal: Orthopedic Surgery Female Surgical History: Hysterectomy Other Surgical History: Multiple hand surgeries - Social History Smoking Status: Former smoker How long have you smoked: 1 year Exposure to second hand smoke: No Alcohol Use: None Drug Use: none Patient Lives Alone: No Significant Family History: diabetes, hypertension - Female History Hx Now: No - Nursing Vital Signs Nursing Vital Signs: Initial Vital Signs Temperature 97.9 F 02/09/20 14:12 Pulse Rate 59 L 02/09/20 14:12 Respiratory Rate 18 02/09/20 14:12 Blood Pressure 173/62 02/09/20 14:12 O2 Sat by Pulse Oximetry 99 02/09/20 14:12 Pain Scale Pain Intensity 0 - Physical Exam General Appearance: no apparent distress, alert Eye Exam: PERRL/EOMI, eyes nml inspection Ears, Nose, Throat Exam: normal ENT inspection, TMs normal, pharynx normal, moist mucous membranes Neck Exam: normal inspection, non-tender, supple, full range of motion Respiratory Exam: normal breath sounds, lungs clear, No respiratory distress Cardiovascular Exam: regular rate/rhythm, normal heart sounds, normal peripheral pulses Gastrointestinal/Abdomen Exam: soft, normal bowel sounds, tenderness (Diffuse), No mass Back Exam: normal inspection, normal range of motion, No CVA tenderness, No vertebral tenderness Extremity Exam: normal inspection, normal range of motion, pelvis stable Neurologic Exam: alert, oriented x 3, cooperative, normal mood/affect, nml cerebellar function, nml station & gait, sensation nml, No motor deficits Skin Exam: normal color, warm, dry, No rash Lymphatic Exam: No adenopathy SpO2 Interpretation: normal SpO2: 99 O2 Delivery: Room Air - Course Nursing assessment & vital signs reviewed: Yes EKG Interpreted by Me: RATE (61), Left [place] Deviation, prolonged QT interval - CT Exams Abdomen/Pelvis CT Interpretation: Other (Diverticulosis) Ordered Tests: Active Orders 24 hr Category Date Time Status EKG-ER Only STAT Care 02/09/20 16:49 Active ABDOMEN AND PELVIS W CONTRAST [CT] Stat Exams 02/09/20 14:42 Completed AMYLASE Stat Lab 02/09/20 15:30 Completed CBC W DIFF Stat Lab 02/09/20 15:30 Completed CMP Stat Lab 02/09/20 15:30 Completed FECAL OCCULT BLOOD - SCREENING Stat Lab 02/09/20 14:44 Ordered LIPASE Stat Lab 02/09/20 15:30 Completed Manual Differential NC Stat Lab 02/09/20 15:30 Completed TROPONIN Q3H Lab 02/09/20 17:00 Completed TROPONIN Q3H Lab 02/09/20 20:00 Ordered TROPONIN Q3H Lab 02/09/20 23:00 Ordered UA W/RFX UR CULTURE Stat Lab 02/09/20 15:01 Completed Medication Summary Generic Name Dose Route Start Last Admin Trade Name Freq PRN Reason Stop Dose Admin Sodium Chloride 1,000 mls @ 100 mls/hr 02/09/20 14:45 02/09/20 15:02 Sodium Chloride 0.9% 1000 Ml IV 03/10/20 14:44 100 mls/hr .Q10H JAMAL Administration Discontinued Medications Generic Name Dose Route Start Last Admin Trade Name Freq PRN Reason Stop Dose Admin Ondansetron HCl 4 mg 02/09/20 14:44 02/09/20 15:02 Zofran 4 Mg/2 Ml Vial IV 02/09/20 14:45 4 mg STAT ONE Administration Ondansetron HCl Confirm 02/09/20 14:58 Zofran 4 Mg/2 Ml Vial Administered 02/09/20 14:59 Dose 4 mg .ROUTE [email or web address] ONE Lab/Rad Data: Laboratory Result Diagrams 02/09/20 15:30 02/09/20 15:30 Laboratory Results 02/09/20 02/09/20 02/09/20 Range/Units 17:00 15:30 15:30 WBC 8.6 (4.0-10.5) K/mm3 RBC 4.13 (4.1-5.4) M/mm3 Hgb 12.6 (12.0-16.0) gm/dl Hct 39.8 (35-47) % MCV 96.4 (78-100) fl MCH 30.5 (26-32) pg MCHC 31.7 L (32-36) g/dl RDW 16.3 H (11.5-14.0) % Plt Count 221 (150-450) K/mm3 MPV 11.3 H (7.5-11.0) fl Sodium 135 L (137-145) mmol/L Potassium 4.8 (3.5-5.1) mmol/L Chloride 99 (98-107) mmol/L Carbon Dioxide 29 (22-30) mmol/L Anion Gap 12.2 (5-15) MEQ/L BUN 16 (7-17) mg/dL Creatinine 0.87 (0.52-1.04) mg/dL Estimated GFR > 60.0 ML/MIN Glucose 203 H (74-106) mg/dL Calcium 9.0 (8.4-10.2) mg/dL Total Bilirubin 0.70 (0.2-1.3) mg/dL AST 26 (14-36) U/L ALT 17 (0-35) U/L Alkaline Phosphatase 90 (38-126) U/L Troponin I < 0.012 (0.000-0.034) ng/mL Serum Total Protein 6.3 (6.3-8.2) g/dL Albumin 3.4 L (3.5-5.0) g/dL Amylase 52 (30-110) U/L Lipase 118 (23-300) U/L Urine Color (YELLOW) Urine Appearance (CLEAR) Urine pH (5-6) Ur Specific [place] (1.005-1.025) Urine Protein (Negative) Urine Ketones (NEGATIVE) Urine Blood (0-5) Kervin/ul Urine Nitrite (NEGATIVE) Urine Bilirubin (NEGATIVE) Urine Urobilinogen (0-1) mg/dL Ur Leukocyte Esterase (NEGATIVE) Urine WBC (Auto) (0-5) /HPF Urine RBC (Auto) (0-2) /HPF U Hyaline Cast (Auto) (0-2) /LPF U Epithel Cells (Auto) (FEW) /HPF Urine Bacteria (Auto) (NEGATIVE) /HPF Urine Culture Reflexed (NO) Urine Glucose (NEGATIVE) mg/dL 02/09/20 Range/Units 15:01 WBC (4.0-10.5) K/mm3 RBC (4.1-5.4) M/mm3 Hgb (12.0-16.0) gm/dl Hct (35-47) % MCV (78-100) fl MCH (26-32) pg MCHC (32-36) g/dl RDW (11.5-14.0) % Plt Count (150-450) K/mm3 MPV (7.5-11.0) fl Sodium (137-145) mmol/L Potassium (3.5-5.1) mmol/L Chloride (98-107) mmol/L Carbon Dioxide (22-30) mmol/L Anion Gap (5-15) MEQ/L BUN (7-17) mg/dL Creatinine (0.52-1.04) mg/dL Estimated GFR ML/MIN Glucose (74-106) mg/dL Calcium (8.4-10.2) mg/dL Total Bilirubin (0.2-1.3) mg/dL AST (14-36) U/L ALT (0-35) U/L Alkaline Phosphatase (38-126) U/L Troponin I (0.000-0.034) ng/mL Serum Total Protein (6.3-8.2) g/dL Albumin (3.5-5.0) g/dL Amylase (30-110) U/L Lipase (23-300) U/L Urine Color YELLOW (YELLOW) Urine Appearance CLEAR (CLEAR) Urine pH 6.0 (5-6) Ur Specific [place] 1.009 (1.005-1.025) Urine Protein NEGATIVE (Negative) Urine Ketones NEGATIVE (NEGATIVE) Urine Blood NEGATIVE (0-5) Kervin/ul Urine Nitrite NEGATIVE (NEGATIVE) Urine Bilirubin NEGATIVE (NEGATIVE) Urine Urobilinogen NEGATIVE (0-1) mg/dL Ur Leukocyte Esterase NEGATIVE (NEGATIVE) Urine WBC (Auto) NONE (0-5) /HPF Urine RBC (Auto) NONE (0-2) /HPF U Hyaline Cast (Auto) 3-5 (0-2) /LPF U Epithel Cells (Auto) RARE (FEW) /HPF Urine Bacteria (Auto) NONE (NEGATIVE) /HPF Urine Culture Reflexed NO (NO) Urine Glucose NEGATIVE (NEGATIVE) mg/dL - Progress Progress: improved Progress Note: 02/09/20 17:37 Opponent is negative. EKG shows nothing acute. I will patient for observation as discussed with Dr. Reyna Discussed with .: Shelby Will see patient in: hospital (observation) Counseled pt/family regarding: lab results, diagnosis, rad results - Departure Departure Disposition: Observation Clinical Impression: Nausea & vomiting Qualifiers: Vomiting type: unspecified Vomiting Intractability: non-intractable Qualified Code(s): R11.2 - Nausea with vomiting, unspecified Diarrhea Qualifiers: Diarrhea type: unspecified type Qualified Code(s): R19.7 - Diarrhea, unspecified Condition: Stable Critical Care Time: No Referrals: AMANDEEP REYNA [Primary Care Provider] -
[2020-02-09] MEDS ORDERED: Sodium Chloride 0.9% 1000 ML 1,000 ML ONE (14:58)
[2020-02-09] MEDS ORDERED: Zofran 4 MG/2 ML VIAL ONE (14:58)
[2020-02-09 15:31] LABS: Appearance CLEAR (CLEAR); Bilirubin NEGATIVE (NEGATIVE); Blood NEGATIVE Ery/ul (0-5); Epithelial Cells RARE /HPF (FEW); Glucose NEGATIVE (NEGATIVE); Ketones NEGATIVE (NEGATIVE); Leukocyte Esterase NEGATIVE (NEGATIVE); Nitrite NEGATIVE (NEGATIVE); Protein,Urine Dip NEGATIVE (Negative); Specific Gravity 1.009 (1.005-1.025); Urobilinogen NEGATIVE mg/dL (0-1)
[2020-02-09 15:41] LABS: Hematocrit 39.8 % (35-47); Hemoglobin 12.6 gm/dl (12.0-16.0); Mean Cell Volume 96.4 fl (78-100); Mean Corpuscular Hemoglobin 30.5 pg (26-32); Mean Corpuscular Hgb Concent. 31.7 g/dl (32-36); Mean Platelet Volume 11.3 fl (7.5-11.0); Platelet Count 221 K/mm3 (150-450); Red Blood Count 4.13 M/mm3 (4.1-5.4); Red Cell Distribution Width 16.3 % (11.5-14.0); White Blood Count 8.6 K/mm3 (4.0-10.5)
[2020-02-09 15:53] LABS: ALBUMIN 3.4 g/dL (3.5-5.0); ALKALINE PHOSPHATASE 90 U/L (38-126); AMYLASE 52 U/L (30-110); ANION GAP 12.2 MEQ/L (5-15); BLOOD UREA NITROGEN 16 mg/dL (7-17); CHLORIDE 99 mmol/L (98-107); Carbon Dioxide 29 mmol/L (22-30); Creatinine 1 0.87 mg/dL (0.52-1.04); EST GLOMERULAR FILTRATION RATE > 60.0 ML/MIN; Glucose 203 mg/dL (74-106); LIPASE 118 U/L (23-300); Potassium 4.8 mmol/L (3.5-5.1); SGOT/AST 26 U/L (14-36); SGPT/ALT 17 U/L (0-35); SODIUM 135 mmol/L (137-145); Total Protein 6.3 g/dL (6.3-8.2)
--- NOTE | 2020-02-09 16:14 | XRAY ---
Indication: Abdomen and flank pain. Nausea, vomiting, diarrhea. Multiple contiguous axial images obtained through the abdomen and pelvis using 80 cc Isovue-370 contrast only. Comparison: February 01, 2020. Lung bases again demonstrates minimal subsegmental atelectasis/scarring. No infiltrate or effusion. Heart is not enlarged. Noncontrasted stomach and bowel loops remain nonobstructed again with scattered colonic diverticulosis, appendectomy, and hysterectomy. No free fluid/air. Remaining liver, gallbladder, pancreas, spleen, adrenal glands, kidneys, ureters, and bladder appear unremarkable. Stable mild area of lytic calcifications. No AAA or pathologic retroperitoneal lymphadenopathy. Osseous structures intact again with degenerative spondylosis throughout the thoracolumbar spine and degenerative changes of both hips. Impression: 1. Stable colonic diverticulosis and chronic bony findings. 2. Remaining CT abdomen/pelvis with contrast exam is again negative.
[2020-02-09 21:46] LABS: BAND 1 % (0.0-2.0); Lymphocytes 32 % (24-44); Monocyte 5 % (0.0-12.0); Neutrophils 62 % (36.0-66.0); Nucleated Red Blood Cell 1 %; Total Cells Counted 100
[2020-02-09 21:49] LABS: Platelet Estimate NORMAL (NORMAL)
[2020-02-09] MEDS ORDERED: Lantus Insulin SQ SCH (22:00)
[2020-02-09] MEDS ORDERED: Klor Con 10 MEQ PO SCH (22:00)
[2020-02-09] MEDS: Zofran 4 MG/2 ML VIAL IV PRN (22:28)
[2020-02-10] MEDS: Lyrica 50MG PO SCH ×3 (00:01→21:38)
[2020-02-10] MEDS: ZYLOPRIM 100 MG PO SCH ×3 (00:01→21:38)
[2020-02-10] MEDS: Coreg 6.25 MG PO SCH ×3 (00:01→21:38)
[2020-02-10] MEDS: Ranexa 500 MG PO SCH ×3 (00:01→21:38)
[2020-02-10] MEDS: TYLENOL 325 MG PO PRN ×3 (00:02→21:47)
[2020-02-10] MEDS: Sodium Chloride 0.9% 1000 ML 1,000 ML IV SCH ×4 (01:15→21:37)
[2020-02-10 05:50] LABS: Hematocrit 35.3 % (35-47); Mean Cell Volume 96.4 fl (78-100); Mean Corpuscular Hemoglobin 30.1 pg (26-32); Mean Corpuscular Hgb Concent. 31.2 g/dl (32-36); Platelet Count 234 K/mm3 (150-450); Red Blood Count 3.66 M/mm3 (4.1-5.4); Red Cell Distribution Width 16.6 % (11.5-14.0); White Blood Count 7.2 K/mm3 (4.0-10.5)
[2020-02-10 06:18] LABS: ALKALINE PHOSPHATASE 83 U/L (38-126); ANION GAP 6.4 MEQ/L (5-15); BLOOD UREA NITROGEN 12 mg/dL (7-17); CHLORIDE 102 mmol/L (98-107); Calcium 8.6 mg/dL (8.4-10.2); Carbon Dioxide 30 mmol/L (22-30); Creatinine 1 0.96 mg/dL (0.52-1.04); EST GLOMERULAR FILTRATION RATE > 60.0 ML/MIN; Glucose 232 mg/dL (74-106); Potassium 4.3 mmol/L (3.5-5.1); SGOT/AST 17 U/L (14-36); SGPT/ALT 14 U/L (0-35); SODIUM 134 mmol/L (137-145); Total Protein 5.6 g/dL (6.3-8.2)
--- NOTE | 2020-02-10 08:31 | PCM.HP ---
History of Present Illness - Chief Complaint Chief Complaint: Nausea Vomiting History of Present Illness: is a 69 year old female who presented with persistent vomiting, diarrhea and weakness. She was admitted to [facility] last week and states she was sent home with dx of gastroenteritits and was still having vomiting and diarrhea after going home. She has not produced a stool since admission, she is tolerating clear liquids and jello etc right now but c/o nausea. she has pain in her lower stomach and her low back. - Review of Systems Constitutional: No Fever, No Chills Respiratory: No Cough, No Short Of Breath Cardiac: No Chest Pain, No Edema, No Syncope Abdominal/Gastrointestinal: Abdominal Pain, Nausea, Vomiting, Diarrhea Genitourinary Symptoms: No Dysuria Skin: No Rash All Other Systems: Reviewed and Negative Medications & Allergies Home Medications: Home Medication List Allopurinol 100 mg [Zyloprim 100 mg] 100 mg PO BID 11/18/18 [History Confirmed 02/09/20] Amiodarone HCl 200 mg [Cordarone 200 MG] 200 mg PO DAILY 11/18/18 [History Confirmed 02/09/20] Carvedilol 12.5 mg [Coreg 12.5 mg] 6.25 mg PO BID 11/18/18 [History Confirmed 02/09/20] Dabigatran Etexilate Mesylate [Pradaxa] 150 mg PO BID 11/18/18 [History Co nfirmed 02/09/20] Isosorbide Mononitrate 30 mg [Imdur 30 MG] 30 mg PO DAILY 11/18/18 [History Confirmed 02/09/20] PANTOPRAZOLE 40 mg Tablet [Protonix 40MG Tablet] 40 mg PO DAILY 11/18/18 [History Confirmed 02/09/20] Ranolazine [Ranexa] 1,000 mg PO BID 11/18/18 [History Confirmed 02/09/20] Sertraline HCl 50 mg [Zoloft 50 mg Tablet] 50 mg PO DAILY 11/18/18 [History Confirmed 02/09/20] Potassium Chloride 10 Meq Tab* [Klor Con 10 MEQ] 20 meq PO BID 01/02/19 [History Confirmed 02/09/20] Insulin Glargine [Lantus Insulin] 26 unit SQ QHS 03/23/19 [History Confirmed 02/09/20] Insulin Lispro [Humalog] 14 unit SQ BREAKFAST 03/23/19 [History Confirmed 02/09/20] Pregabalin 50 mg [Lyrica 50MG] 50 mg PO BID 03/23/19 [History Confirmed 02/09/20] Insulin Lispro [Humalog] 10 unit SQ DINNER 11/03/19 [History Confirmed 02/09/20] Insulin Lispro [Humalog] 12 unit SQ LUNCH 11/03/19 [History Confirmed 02/09/20] Bumetanide 4 mg PO DAILY 02/09/20 [History Confirmed 02/09/20] Donepezil HCl 10 mg [Aricept 10 MG] 1 tab PO DAILY 02/09/20 [History Confirmed 02/09/20] Memantine HCl 1 tab PO BID 02/09/20 [History Confirmed 02/09/20] Allergies/Adverse Reactions: Allergies Allergy/AdvReac Type Severity Reaction Status Date / Time morphine Allergy Severe anaphylaxis Verified 02/09/20 14:11 adhesive Allergy Mild Blisters Verified 02/09/20 14:11 aspirin Allergy Difficulty Verified 02/09/20 14:11 Breathing Penicillins Allergy Rash Verified 02/09/20 14:11 povidone-iodine Allergy BLISTERES Verified 02/09/20 14:11 [From Betadine] soap [From Betadine] Allergy Blisters Verified 02/09/20 14:11 - Past Medical History Past Medical History: Yes Neurological History: Peripheral Neuropathy ENT History: No Pertinent History Cardiac History: Angina, Arrhythmia, Congestive Heart Failure, High Cholesterol, Hypertension Respiratory History: COPD, Pneumonia Endocrine Medical History: Diabetes Type II Musculoskelatal History: Arthritis, Fractures GI Medical History: No Pertinent History History: Other Pyscho-Social History: No Pertinent History Reproductive Disorders: No Pertinent History Comment: Impaired kidney function, HYPOKALEMIA, LEFT ANKLE FRACTURE 05/07/19, - Female History Are you now?: No - Past Surgical History Past Surgical History: Yes Neuro Surgical History: No Pertinent History Cardiac History: No Pertinent History Respiratory Surgery: No Pertinent History GI Surgical History: Appendectomy Genitourinary Surgical Hx: No Pertinent History Musculskeletal Surgical Hx: Orthopedic Surgery Female Surgical History: Hysterectomy Other Surgical History: Multiple hand surgeries, - Social History Smoking Status: Former smoker How long have you smoked: 1 year Exposure to second hand smoke: No Alcohol: None Drug Use: none Significant Family History: diabetes, hypertension - Physical Exam Vital Signs: Vital Signs - 24 hr Temp Pulse Resp BP Pulse Ox 02/10/20 08:00 97.8 F 59 L 18 143/64 96 02/10/20 07:00 93 L 02/10/20 04:00 96.3 F 61 20 139/63 96 02/10/20 00:00 16 02/09/20 23:57 98.3 F 63 16 160/69 93 L 02/09/20 20:23 97.9 F 68 14 157/66 96 02/09/20 18:11 68 14 157/66 96 02/09/20 17:39 99 02/09/20 17:01 65 19 134/57 98 02/09/20 16:00 60 20 164/65 97 02/09/20 15:15 60 16 164/65 97 02/09/20 14:12 97.9 F 59 L 18 173/62 99 General Appearance: no apparent distress, obese Neurologic Exam: alert, oriented x 3, cooperative Respiratory Exam: normal breath sounds, lungs clear, No respiratory distress Cardiovascular Exam: regular rate/rhythm, normal heart sounds, normal peripheral pulses Gastrointestinal/Abdomen Exam: soft, other (morbidly obese abdomen), No distention, No guarding, No rebound Extremity Exam: normal inspection, normal range of motion, pelvis stable Skin Exam: normal color, warm, dry, No rash Results - Labs Lab/Micro Results: Lab Results-Last 24 Hours 02/09/20 02/09/20 02/09/20 Range/Units 15:01 15:30 15:30 WBC 8.6 (4.0-10.5) K/mm3 RBC 4.13 (4.1-5.4) M/mm3 Hgb 12.6 (12.0-16.0) gm/dl Hct 39.8 (35-47) % MCV 96.4 (78-100) fl MCH 30.5 (26-32) pg MCHC 31.7 L (32-36) g/dl RDW 16.3 H (11.5-14.0) % Plt Count 221 (150-450) K/mm3 MPV 11.3 H (7.5-11.0) fl Segmented Neutrophils 62 (36.0-66.0) % Band Neutrophils 1 (0.0-2.0) % Lymphocytes (Manual) 32 (24-44) % Monocytes (Manual) 5 (0.0-12.0) % Nucleated RBCs 1 % Platelet Estimate NORMAL (NORMAL) RBC Morphology NORMAL Sodium 135 L (137-145) mmol/L Potassium 4.8 (3.5-5.1) mmol/L Chloride 99 (98-107) mmol/L Carbon Dioxide 29 (22-30) mmol/L Anion Gap 12.2 (5-15) MEQ/L BUN 16 (7-17) mg/dL Creatinine 0.87 (0.52-1.04) mg/dL Estimated GFR > 60.0 ML/MIN Glucose 203 H (74-106) mg/dL POC Glucometer (74 to 106) mg/dL Hemoglobin A1c (4.5-6.0) % Calcium 9.0 (8.4-10.2) mg/dL Total Bilirubin 0.70 (0.2-1.3) mg/dL AST 26 (14-36) U/L ALT 17 (0-35) U/L Alkaline Phosphatase 90 (38-126) U/L Troponin I (0.000-0.034) ng/mL Serum Total Protein 6.3 (6.3-8.2) g/dL Albumin 3.4 L (3.5-5.0) g/dL Amylase 52 (30-110) U/L Lipase 118 (23-300) U/L Urine Color YELLOW (YELLOW) Urine Appearance CLEAR (CLEAR) Urine pH 6.0 (5-6) Ur Specific [place] 1.009 (1.005-1.025) Urine Protein NEGATIVE (Negative) Urine Ketones NEGATIVE (NEGATIVE) Urine Blood NEGATIVE (0-5) Kervin/ul Urine Nitrite NEGATIVE (NEGATIVE) Urine Bilirubin NEGATIVE (NEGATIVE) Urine Urobilinogen NEGATIVE (0-1) mg/dL Ur Leukocyte Esterase NEGATIVE (NEGATIVE) Urine WBC (Auto) NONE (0-5) /HPF Urine RBC (Auto) NONE (0-2) /HPF U Hyaline Cast (Auto) 3-5 (0-2) /LPF U Epithel Cells (Auto) RARE (FEW) /HPF Urine Bacteria (Auto) NONE (NEGATIVE) /HPF Urine Culture Reflexed NO (NO) Urine Glucose NEGATIVE (NEGATIVE) mg/dL 02/09/20 02/09/20 02/09/20 Range/Units 17:00 19:00 20:02 WBC (4.0-10.5) K/mm3 RBC (4.1-5.4) M/mm3 Hgb (12.0-16.0) gm/dl Hct (35-47) % MCV (78-100) fl MCH (26-32) pg MCHC (32-36) g/dl RDW (11.5-14.0) % Plt Count (150-450) K/mm3 MPV (7.5-11.0) fl Segmented Neutrophils (36.0-66.0) % Band Neutrophils (0.0-2.0) % Lymphocytes (Manual) (24-44) % Monocytes (Manual) (0.0-12.0) % Nucleated RBCs % Platelet Estimate (NORMAL) RBC Morphology Sodium (137-145) mmol/L Potassium (3.5-5.1) mmol/L Chloride (98-107) mmol/L Carbon Dioxide (22-30) mmol/L Anion Gap (5-15) MEQ/L BUN (7-17) mg/dL Creatinine (0.52-1.04) mg/dL Estimated GFR ML/MIN Glucose (74-106) mg/dL POC Glucometer (74 to 106) mg/dL Hemoglobin A1c 6.51 H (4.5-6.0) % Calcium (8.4-10.2) mg/dL Total Bilirubin (0.2-1.3) mg/dL AST (14-36) U/L ALT (0-35) U/L Alkaline Phosphatase (38-126) U/L Troponin I < 0.012 < 0.012 (0.000-0.034) ng/mL Serum Total Protein (6.3-8.2) g/dL Albumin (3.5-5.0) g/dL Amylase (30-110) U/L Lipase (23-300) U/L Urine Color (YELLOW) Urine Appearance (CLEAR) Urine pH (5-6) Ur Specific [place] (1.005-1.025) Urine Protein (Negative) Urine Ketones (NEGATIVE) Urine Blood (0-5) Kervin/ul Urine Nitrite (NEGATIVE) Urine Bilirubin (NEGATIVE) Urine Urobilinogen (0-1) mg/dL Ur Leukocyte Esterase (NEGATIVE) Urine WBC (Auto) (0-5) /HPF Urine RBC (Auto) (0-2) /HPF U Hyaline Cast (Auto) (0-2) /LPF U Epithel Cells (Auto) (FEW) /HPF Urine Bacteria (Auto) (NEGATIVE) /HPF Urine Culture Reflexed (NO) Urine Glucose (NEGATIVE) mg/dL 02/09/20 02/09/20 02/10/20 Range/Units 22:31 23:05 05:10 WBC 7.2 (4.0-10.5) K/mm3 RBC 3.66 L (4.1-5.4) M/mm3 Hgb 11.0 L (12.0-16.0) gm/dl Hct 35.3 (35-47) % MCV 96.4 (78-100) fl MCH 30.1 (26-32) pg MCHC 31.2 L (32-36) g/dl RDW 16.6 H (11.5-14.0) % Plt Count 234 (150-450) K/mm3 MPV 11.0 (7.5-11.0) fl Segmented Neutrophils (36.0-66.0) % Band Neutrophils (0.0-2.0) % Lymphocytes (Manual) (24-44) % Monocytes (Manual) (0.0-12.0) % Nucleated RBCs % Platelet Estimate (NORMAL) RBC Morphology Sodium (137-145) mmol/L Potassium (3.5-5.1) mmol/L Chloride (98-107) mmol/L Carbon Dioxide (22-30) mmol/L Anion Gap (5-15) MEQ/L BUN (7-17) mg/dL Creatinine (0.52-1.04) mg/dL Estimated GFR ML/MIN Glucose (74-106) mg/dL POC Glucometer 221 H (74 to 106) mg/dL Hemoglobin A1c (4.5-6.0) % Calcium (8.4-10.2) mg/dL Total Bilirubin (0.2-1.3) mg/dL AST (14-36) U/L ALT (0-35) U/L Alkaline Phosphatase (38-126) U/L Troponin I < 0.012 (0.000-0.034) ng/mL Serum Total Protein (6.3-8.2) g/dL Albumin (3.5-5.0) g/dL Amylase (30-110) U/L Lipase (23-300) U/L Urine Color (YELLOW) Urine Appearance (CLEAR) Urine pH (5-6) Ur Specific [place] (1.005-1.025) Urine Protein (Negative) Urine Ketones (NEGATIVE) Urine Blood (0-5) Kervin/ul Urine Nitrite (NEGATIVE) Urine Bilirubin (NEGATIVE) Urine Urobilinogen (0-1) mg/dL Ur Leukocyte Esterase (NEGATIVE) Urine WBC (Auto) (0-5) /HPF Urine RBC (Auto) (0-2) /HPF U Hyaline Cast (Auto) (0-2) /LPF U Epithel Cells (Auto) (FEW) /HPF Urine Bacteria (Auto) (NEGATIVE) /HPF Urine Culture Reflexed (NO) Urine Glucose (NEGATIVE) mg/dL 02/10/20 02/10/20 Range/Units 05:10 07:42 WBC (4.0-10.5) K/mm3 RBC (4.1-5.4) M/mm3 Hgb (12.0-16.0) gm/dl Hct (35-47) % MCV (78-100) fl MCH (26-32) pg MCHC (32-36) g/dl RDW (11.5-14.0) % Plt Count (150-450) K/mm3 MPV (7.5-11.0) fl Segmented Neutrophils (36.0-66.0) % Band Neutrophils (0.0-2.0) % Lymphocytes (Manual) (24-44) % Monocytes (Manual) (0.0-12.0) % Nucleated RBCs % Platelet Estimate (NORMAL) RBC Morphology Sodium 134 L (137-145) mmol/L Potassium 4.3 (3.5-5.1) mmol/L Chloride 102 (98-107) mmol/L Carbon Dioxide 30 (22-30) mmol/L Anion Gap 6.4 (5-15) MEQ/L BUN 12 (7-17) mg/dL Creatinine 0.96 (0.52-1.04) mg/dL Estimated GFR > 60.0 ML/MIN Glucose 232 H (74-106) mg/dL POC Glucometer 200 H (74 to 106) mg/dL Hemoglobin A1c (4.5-6.0) % Calcium 8.6 (8.4-10.2) mg/dL Total Bilirubin 0.50 (0.2-1.3) mg/dL AST 17 (14-36) U/L ALT 14 (0-35) U/L Alkaline Phosphatase 83 (38-126) U/L Troponin I (0.000-0.034) ng/mL Serum Total Protein 5.6 L (6.3-8.2) g/dL Albumin 3.0 L (3.5-5.0) g/dL Amylase (30-110) U/L Lipase (23-300) U/L Urine Color (YELLOW) Urine Appearance (CLEAR) Urine pH (5-6) Ur Specific [place] (1.005-1.025) Urine Protein (Negative) Urine Ketones (NEGATIVE) Urine Blood (0-5) Kervin/ul Urine Nitrite (NEGATIVE) Urine Bilirubin (NEGATIVE) Urine Urobilinogen (0-1) mg/dL Ur Leukocyte Esterase (NEGATIVE) Urine WBC (Auto) (0-5) /HPF Urine RBC (Auto) (0-2) /HPF U Hyaline Cast (Auto) (0-2) /LPF U Epithel Cells (Auto) (FEW) /HPF Urine Bacteria (Auto) (NEGATIVE) /HPF Urine Culture Reflexed (NO) Urine Glucose (NEGATIVE) mg/dL Accuchecks Date 02/10/20 Date 02/10/20 Time 07:30 Time 22:00 - Radiology Impressions Radiology Exams & Impressions: Radiology Procedures Category Date Time Status ABDOMEN AND PELVIS W CONTRAST [CT] Stat Exams 02/09/20 14:42 Completed - Other Procedures and Tests Respiratory Therapy 02/09/20 21:20 BiPap/CPAP ROUTINE Oxygen NASAL CANNULA 2 lpm Assessment/Plan (1) Diarrhea Current Visit: Yes Status: Acute Qualifiers: Diarrhea type: unspecified type Qualified Code(s): R19.7 - Diarrhea, unspecified Assessment & Plan: advance diet, GI panel ordered if she can produce a stool specimen. continue fluids, workup negative thus far Code(s): R19.7 - DIARRHEA, UNSPECIFIED (2) Nausea & vomiting Current Visit: Yes Status: Acute Qualifiers: Vomiting type: unspecified Vomiting Intractability: non-intractable Qualified Code(s): R11.2 - Nausea with vomiting, unspecified Code(s): R11.2 - NAUSEA WITH VOMITING, UNSPECIFIED (3) CKD (chronic kidney disease) Current Visit: No Status: Chronic Qualifiers: Code(s): N18.9 - CHRONIC KIDNEY DISEASE, UNSPECIFIED (4) Chronic obstructive lung disease Current Visit: No Status: Chronic Code(s): J44.9 - CHRONIC OBSTRUCTIVE PULMONARY DISEASE, UNSPECIFIED (5) Diabetes mellitus Current Visit: No Status: Chronic Qualifiers: Code(s): E11.9 - TYPE 2 DIABETES MELLITUS WITHOUT COMPLICATIONS (6) Essential hypertension Current Visit: No Status: Chronic Code(s): I10 - ESSENTIAL (PRIMARY) HYPERTENSION
[2020-02-10] MEDS: Zofran 4 MG/2 ML VIAL IV PRN ×2 (08:52→17:02)
[2020-02-10 09:32] LABS: Eosinophil 1 % (0.00-3.0); Lymphocytes 44 % (24-44); Neutrophils 55 % (36.0-66.0); Platelet Estimate NORMAL (NORMAL); Total Cells Counted 100
[2020-02-10] MEDS: Namenda 5 MG PO SCH ×3 (10:31→21:38)
[2020-02-10] MEDS: PROTONIX 40 MG IV IV SCH (10:32)
[2020-02-10] MEDS: Aricept 10 MG PO SCH (10:37)
[2020-02-10] MEDS: Cordarone 200 MG PO SCH (10:37)
[2020-02-10] MEDS: PRADAXA 75 MG PO SCH ×3 (10:37→21:46)
[2020-02-10] MEDS: ZOLOFT 50 MG TABLET PO SCH (10:37)
[2020-02-10] MEDS: Imdur 30 MG PO SCH (10:37)
[2020-02-10] MEDS: HUMALOG SQ SCH ×2 (12:16→17:56)
[2020-02-10 13:28] LABS: 027 TOX PROD PRESUMPTIVE NEGATIVE (NEGATIVE)
[2020-02-10 13:43] LABS: TOXIGENIC C. DIFF ORG POSITIVE (NEGATIVE)
[2020-02-10] MEDS ORDERED: PHARMACY DOSING REQUEST MC ONE (13:56)
[2020-02-10 14:26] LABS: Campylobacter NEGATIVE (NEGATIVE)
[2020-02-10 14:28] LABS: Adenovirus F 40/41 NEGATIVE (NEGATIVE); Astrovirus NEGATIVE (NEGATIVE); C. Difficile Organism POSITIVE (NEGATIVE); Cryptosporidium NEGATIVE (NEGATIVE); Cyclospora cayentanensis NEGATIVE (NEGATIVE); Entamoeaba histolytica NEGATIVE (NEGATIVE); Enteroaggregative E.coli NEGATIVE (NEGATIVE); Enteropathogenic E.coli NEGATIVE (NEGATIVE); Enterotoxigenic E.coli NEGATIVE (NEGATIVE); Giardia lamblia NEGATIVE (NEGATIVE); Norovirus GI/GII NEGATIVE (NEGATIVE); Plesiomonas shigelloides NEGATIVE (NEGATIVE); Rotavirus A NEGATIVE (NEGATIVE); Salmonella NEGATIVE (NEGATIVE); Sapovirus NEGATIVE (NEGATIVE); Shiga-like toxin prod.E.coli NEGATIVE (NEGATIVE); Vibrio NEGATIVE (NEGATIVE); Vibrio cholerae NEGATIVE (NEGATIVE); Yersinia enterocolitica NEGATIVE (NEGATIVE)
[2020-02-10] MEDS: VANCOMYCIN HCL CAPSULE PO SCH ×3 (14:57→21:38)
[2020-02-10] MEDS: Lantus Insulin SQ SCH (21:38)
[2020-02-11 05:11] LABS: Hematocrit 34.7 % (35-47); Hemoglobin 10.7 gm/dl (12.0-16.0); Mean Cell Volume 97.7 fl (78-100); Mean Corpuscular Hemoglobin 30.1 pg (26-32); Mean Corpuscular Hgb Concent. 30.8 g/dl (32-36); Platelet Count 216 K/mm3 (150-450); Red Blood Count 3.55 M/mm3 (4.1-5.4); Red Cell Distribution Width 16.6 % (11.5-14.0); White Blood Count 7.6 K/mm3 (4.0-10.5)
[2020-02-11 05:50] LABS: ALBUMIN 2.8 g/dL (3.5-5.0); ALKALINE PHOSPHATASE 80 U/L (38-126); ANION GAP 7.4 MEQ/L (5-15); BLOOD UREA NITROGEN 9 mg/dL (7-17); CHLORIDE 105 mmol/L (98-107); Calcium 8.4 mg/dL (8.4-10.2); Carbon Dioxide 28 mmol/L (22-30); Creatinine 1 0.74 mg/dL (0.52-1.04); EST GLOMERULAR FILTRATION RATE > 60.0 ML/MIN; Glucose 169 mg/dL (74-106); Potassium 4.2 mmol/L (3.5-5.1); SGOT/AST 19 U/L (14-36); SGPT/ALT 14 U/L (0-35); SODIUM 136 mmol/L (137-145); Total Protein 5.3 g/dL (6.3-8.2)
[2020-02-11 07:13] LABS: ATYPICAL LYMPHS 1 %; BAND 5 % (0.0-2.0); Eosinophil 3 % (0.00-3.0); Lymphocytes 29 % (24-44); Monocyte 10 % (0.0-12.0); Neutrophils 52 % (36.0-66.0); Total Cells Counted 100
[2020-02-11 07:15] LABS: Platelet Estimate NORMAL (NORMAL)
[2020-02-11 07:16] LABS: Absolute Neutrophil Ct (ANC) 4.34 (1.4-6.9)
[2020-02-11] MEDS: Sodium Chloride 0.9% 1000 ML 1,000 ML IV SCH ×2 (07:48→20:10)
[2020-02-11] MEDS: HUMALOG SQ SCH ×3 (09:33→16:16)
[2020-02-11] MEDS: Cordarone 200 MG PO SCH (09:59)
[2020-02-11] MEDS: Namenda 5 MG PO SCH ×2 (10:00→22:53)
[2020-02-11] MEDS: Coreg 6.25 MG PO SCH ×2 (10:00→22:52)
[2020-02-11] MEDS: Lyrica 50MG PO SCH ×2 (10:00→22:53)
[2020-02-11] MEDS: ZYLOPRIM 100 MG PO SCH ×2 (10:00→22:55)
[2020-02-11] MEDS: PRADAXA 75 MG PO SCH ×2 (10:00→22:54)
[2020-02-11] MEDS: ZOLOFT 50 MG TABLET PO SCH (10:00)
[2020-02-11] MEDS: Imdur 30 MG PO SCH (10:00)
[2020-02-11] MEDS: Aricept 10 MG PO SCH (10:00)
[2020-02-11] MEDS: PROTONIX 40 MG IV IV SCH (10:00)
[2020-02-11] MEDS: VANCOMYCIN HCL CAPSULE PO SCH ×4 (10:00→22:54)
[2020-02-11] MEDS: Cyclobenzaprine 10 MG PO SCH ×3 (10:01→22:53)
[2020-02-11] MEDS: Ranexa 500 MG PO SCH ×2 (10:01→22:54)
[2020-02-11] MEDS: Zofran 4 MG/2 ML VIAL IV PRN ×2 (10:01→22:55)
[2020-02-11] MEDS: Voltaren GEL TOP SCH ×4 (10:23→22:54)
[2020-02-11] MEDS: TYLENOL 325 MG PO PRN ×2 (10:32→22:55)
[2020-02-11] MEDS: Apresoline 25 MG TABLET PO PRN (12:16)
--- NOTE | 2020-02-11 17:14 | PCM.NOTE ---
Date and Time: 02/11/20 1710 Subjective Assessment: Pt seen this a.m. by me. She was c/o not feeling well, nauseated, with L lower back pain and pain in her hip (L lateral proximal thigh). Had eaten breakfast but not feeling well. No diarrhea yet today. - Review of Systems Constitutional: No Fever Abdominal/Gastrointestinal: Abdominal Pain (bilat lower abd) Objective Exam General Appearance: mild distress, alert, obese Neurologic Exam: oriented x 3, cooperative Skin Exam: normal color, warm, dry, No rash Eye Exam: eyes nml inspection Ears, Nose, Throat Exam: moist mucous membranes Respiratory Exam: normal breath sounds, lungs clear, No crackles/rales, No rhonchi, No wheezing Cardiovascular Exam: regular rate/rhythm, normal heart sounds, No murmur Gastrointestinal/Abdomen Exam: soft, normal bowel sounds, tenderness (LLQ and RLQ) Extremity Exam: normal inspection, No pedal edema, No swelling Back Exam: normal inspection, No rash OBJECTIVE DATA Vital Signs: Vital Signs - 24 hr Temp Pulse Resp BP Pulse Ox 02/11/20 16:00 98.1 F 80 20 139/58 96 02/11/20 12:00 98.2 F 75 20 189/73 94 L 02/11/20 11:15 90 L 02/11/20 07:02 98.1 F 80 22 180/75 92 L 02/11/20 04:00 22 02/11/20 03:51 97.4 F 51 L 22 148/67 96 02/11/20 00:00 98.5 F 58 L 22 135/62 92 L 02/10/20 20:41 97 02/10/20 20:00 15 02/10/20 19:55 98.0 F 55 L 15 141/63 96 Pain Assessment - Last Documented Pain Intensity 4 Pain Scale Used 0-10 Pain Scale Intake and Output: Intake & Output 02/09/20 02/10/20 02/11/20 02/12/20 11:59 11:59 11:59 11:59 Intake Total 410 8764 240 Output Total 450 Balance -40 8764 240 Weight 114 kg Lab Results: Lab Results-Last 24 Hours 02/10/20 02/11/20 02/11/20 Range/Units 20:51 05:05 05:05 WBC 7.6 (4.0-10.5) K/mm3 RBC 3.55 L (4.1-5.4) M/mm3 Hgb 10.7 L (12.0-16.0) gm/dl Hct 34.7 L (35-47) % MCV 97.7 (78-100) fl MCH 30.1 (26-32) pg MCHC 30.8 L (32-36) g/dl RDW 16.6 H (11.5-14.0) % Plt Count 216 (150-450) K/mm3 MPV 11.0 (7.5-11.0) fl Absolute Granulocytes 4.34 (1.4-6.9) Segmented Neutrophils 52 (36.0-66.0) % Band Neutrophils 5 H (0.0-2.0) % Lymphocytes (Manual) 29 (24-44) % Monocytes (Manual) 10 (0.0-12.0) % Eosinophils (Manual) 3 (0.00-3.0) % Atypical Lymphocytes 1 % Platelet Estimate NORMAL (NORMAL) RBC Morphology NORMAL Sodium 136 L (137-145) mmol/L Potassium 4.2 (3.5-5.1) mmol/L Chloride 105 (98-107) mmol/L Carbon Dioxide 28 (22-30) mmol/L Anion Gap 7.4 (5-15) MEQ/L BUN 9 (7-17) mg/dL Creatinine 0.74 (0.52-1.04) mg/dL Estimated GFR > 60.0 ML/MIN Glucose 169 H (74-106) mg/dL POC Glucometer 220 H (74 to 106) mg/dL Calcium 8.4 (8.4-10.2) mg/dL Total Bilirubin 0.40 (0.2-1.3) mg/dL AST 19 (14-36) U/L ALT 14 (0-35) U/L Alkaline Phosphatase 80 (38-126) U/L Serum Total Protein 5.3 L (6.3-8.2) g/dL Albumin 2.8 L (3.5-5.0) g/dL 02/11/20 02/11/20 Range/Units 06:21 10:55 WBC (4.0-10.5) K/mm3 RBC (4.1-5.4) M/mm3 Hgb (12.0-16.0) gm/dl Hct (35-47) % MCV (78-100) fl MCH (26-32) pg MCHC (32-36) g/dl RDW (11.5-14.0) % Plt Count (150-450) K/mm3 MPV (7.5-11.0) fl Absolute Granulocytes (1.4-6.9) Segmented Neutrophils (36.0-66.0) % Band Neutrophils (0.0-2.0) % Lymphocytes (Manual) (24-44) % Monocytes (Manual) (0.0-12.0) % Eosinophils (Manual) (0.00-3.0) % Atypical Lymphocytes % Platelet Estimate (NORMAL) RBC Morphology Sodium (137-145) mmol/L Potassium (3.5-5.1) mmol/L Chloride (98-107) mmol/L Carbon Dioxide (22-30) mmol/L Anion Gap (5-15) MEQ/L BUN (7-17) mg/dL Creatinine (0.52-1.04) mg/dL Estimated GFR ML/MIN Glucose (74-106) mg/dL POC Glucometer 159 H 282 H (74 to 106) mg/dL Calcium (8.4-10.2) mg/dL Total Bilirubin (0.2-1.3) mg/dL AST (14-36) U/L ALT (0-35) U/L Alkaline Phosphatase (38-126) U/L Serum Total Protein (6.3-8.2) g/dL Albumin (3.5-5.0) g/dL Multi-Disciplinary Progress Notes: Multi-Disciplinary Progress Notes 02/11/20 08:42 Case Management Note by Aurelia Rosa SPOKE WITH PT ABOUT NEEDS AT DISCHARGE. PT SAYS SHE HAS A WALKER AND A CANE AND DENIES NEED FOR WHEELCHAIR AT THIS TIME. SHE IS NOT INTERESTED IN [facility], SHE SAYS HER DAUGHTER WILL HELP HER WITH BATHS, HELP WITH MEALS AND CAN DRIVE HER TO AND FROM APPOINTMENTS. Initialized on 02/11/20 08:42 - END OF NOTE Assessment/Plan (1) C. difficile colitis Current Visit: Yes Status: Acute Assessment & Plan: On vancomycin po 125mg QID. Code(s): A04.72 - ENTEROCOLITIS D/T CLOSTRIDIUM DIFFICILE, NOT SPCF RECUR (2) Nausea & vomiting Current Visit: Yes Status: Acute Qualifiers: Vomiting type: unspecified Vomiting Intractability: non-intractable Qualified Code(s): R11.2 - Nausea with vomiting, unspecified Code(s): R11.2 - NAUSEA WITH VOMITING, UNSPECIFIED (3) Back pain Current Visit: Yes Status: Acute Qualifiers: Back pain location: low back pain Chronicity: unspecified Back pain laterality: left Sciatica presence: without sciatica Qualified Code(s): M54.5 - Low back pain Code(s): M54.9 - DORSALGIA, UNSPECIFIED (4) Leg pain Current Visit: No Status: Acute Qualifiers: Laterality: bilateral Qualified Code(s): M79.604 - Pain in right leg; M79.605 - Pain in left leg Assessment & Plan: pt states she's had injections for this in the past (5) Diabetes mellitus Current Visit: No Status: Chronic Qualifiers: Diabetes mellitus type: type 2 Diabetes mellitus detention insulin use: with terminal press operator use Diabetes mellitus complication status: with kidney complications Diabetes mellitus complication detail: with chronic kidney disease Chronic kidney disease stage: stage 1 Qualified Code(s): E11.22 - Type 2 diabetes mellitus with diabetic chronic kidney disease; N18.1 - Chronic kidney disease, stage 1; 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
[2020-02-11] MEDS: Lantus Insulin SQ SCH (22:52)
[2020-02-12] MEDS: TYLENOL 325 MG PO PRN ×2 (04:15→16:58)
[2020-02-12] MEDS: Apresoline 25 MG TABLET PO PRN (04:15)
[2020-02-12] MEDS: Sodium Chloride 0.9% 1000 ML 1,000 ML IV SCH ×2 (06:08→16:41)
[2020-02-12] MEDS: HUMALOG SQ SCH ×3 (08:25→18:10)
--- NOTE | 2020-02-12 08:39 | PCM.NOTE ---
Date and Time: 02/12/20835 Subjective Assessment: patient still having some diarrhea overnight, states she feels weak. she is sore in her lower abdomen and back Objective Exam General Appearance: obese Neurologic Exam: alert, oriented x 3 Respiratory Exam: normal breath sounds, lungs clear, No respiratory distress Cardiovascular Exam: regular rate/rhythm, normal heart sounds Gastrointestinal/Abdomen Exam: soft, normal bowel sounds, tenderness (lower abdomen), No distention, No mass, No guarding OBJECTIVE DATA Vital Signs: Vital Signs - 24 hr Temp Pulse Resp BP Pulse Ox 02/12/20 07:43 97.9 F 68 18 148/66 93 L 02/12/20 07:32 93 L 02/12/20 04:56 149/67 02/12/20 04:00 99.6 F 76 24 207/86 91 L 02/12/20 00:00 96.5 F 63 20 167/70 91 L 02/11/20 19:27 92 L 02/11/20 19:11 97.3 F 58 L 20 160/69 90 L 02/11/20 18:56 86 L 02/11/20 16:00 98.1 F 80 20 139/58 96 02/11/20 12:00 98.2 F 75 20 189/73 94 L 02/11/20 11:15 90 L Pain Assessment - Last Documented Pain Intensity 9 Pain Scale Used [facility] Intake and Output: Intake & Output 02/09/20 02/10/20 02/11/20 02/12/20 11:59 11:59 11:59 11:59 Intake Total 410 8764 3300 Output Total 450 Balance -40 8764 3300 Weight 114 kg Lab Results: Lab Results-Last 24 Hours 02/11/20 02/11/20 02/12/20 Range/Units 10:55 20:41 05:30 POC Glucometer 282 H 175 H (74 to 106) mg/dL Troponin I 0.015 (0.000-0.034) ng/mL 02/12/20 Range/Units 07:15 POC Glucometer 196 H (74 to 106) mg/dL Troponin I (0.000-0.034) ng/mL Multi-Disciplinary Progress Notes: Multi-Disciplinary Progress Notes 02/11/20 08:42 Case Management Note by Aurelia Rosa SPOKE WITH PT ABOUT NEEDS AT DISCHARGE. PT SAYS SHE HAS A WALKER AND A CANE AND DENIES NEED FOR WHEELCHAIR AT THIS TIME. SHE IS NOT INTERESTED IN [facility], SHE SAYS HER DAUGHTER WILL HELP HER WITH BATHS, HELP WITH MEALS AND CAN DRIVE HER TO AND FROM APPOINTMENTS. Initialized on 02/11/20 08:42 - END OF NOTE Assessment/Plan (1) C. difficile colitis Current Visit: Yes Status: Acute Assessment & Plan: continue oral vanc, symptoms are improved but not resolved. multiple comorbidities and with heme + stool needs monitored closely, currently stable, will continue current treatment and home when more clinically improved Code(s): A04.72 - ENTEROCOLITIS D/T CLOSTRIDIUM DIFFICILE, NOT SPCF RECUR (2) Heme + stool Current Visit: Yes Status: Acute Assessment & Plan: secondary to c diff, h/h stable, will monitor and continue IV protonix (3) Diarrhea Current Visit: Yes Status: Acute Qualifiers: Diarrhea type: unspecified type Qualified Code(s): R19.7 - Diarrhea, unspecified Code(s): R19.7 - DIARRHEA, UNSPECIFIED (4) Nausea & vomiting Current Visit: Yes Status: Acute Qualifiers: Vomiting type: unspecified Vomiting Intractability: non-intractable Qualified Code(s): R11.2 - Nausea with vomiting, unspecified Code(s): R11.2 - NAUSEA WITH VOMITING, UNSPECIFIED (5) CKD (chronic kidney disease) Current Visit: No Status: Chronic Qualifiers: Code(s): N18.9 - CHRONIC KIDNEY DISEASE, UNSPECIFIED (6) Chronic obstructive lung disease Current Visit: No Status: Chronic Code(s): J44.9 - CHRONIC OBSTRUCTIVE PULMONARY DISEASE, UNSPECIFIED (7) Diabetes mellitus Current Visit: No Status: Chronic Qualifiers: Diabetes mellitus type: type 2 Diabetes mellitus director long term care insulin use: with director long term care use Diabetes mellitus complication status: with kidney complications Diabetes mellitus complication detail: with chronic kidney disease Chronic kidney disease stage: stage 1 Qualified Code(s): E11.22 - Type 2 diabetes mellitus with diabetic chronic kidney disease; N18.1 - Chronic kidney disease, stage 1; 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
[2020-02-12] MEDS: PROTONIX 40 MG IV IV SCH (10:46)
[2020-02-12] MEDS: Cyclobenzaprine 10 MG PO SCH ×3 (10:46→21:56)
[2020-02-12] MEDS: Voltaren GEL TOP SCH ×4 (10:46→22:20)
[2020-02-12] MEDS: Cordarone 200 MG PO SCH (10:47)
[2020-02-12] MEDS: Aricept 10 MG PO SCH (10:47)
[2020-02-12] MEDS: Lyrica 50MG PO SCH ×2 (10:47→21:56)
[2020-02-12] MEDS: Imdur 30 MG PO SCH (10:47)
[2020-02-12] MEDS: PRADAXA 75 MG PO SCH ×2 (10:47→21:56)
[2020-02-12] MEDS: Coreg 6.25 MG PO SCH ×2 (10:47→21:56)
[2020-02-12] MEDS: ZYLOPRIM 100 MG PO SCH ×2 (10:47→21:56)
[2020-02-12] MEDS: Ranexa 500 MG PO SCH ×2 (10:47→21:56)
[2020-02-12] MEDS: ZOLOFT 50 MG TABLET PO SCH (10:48)
[2020-02-12] MEDS: VANCOMYCIN HCL CAPSULE PO SCH ×4 (10:48→21:55)
[2020-02-12] MEDS: Namenda 5 MG PO SCH ×2 (10:48→21:56)
[2020-02-12 21:12] LABS: A-aADO2 111; ABG HEMOGLOBIN 10.8; ABG POTASSIUM 4.1 (3.5-5.1); ABG SITE RIGHT RADIAL; ALLEN TEST OK? y; ARTERIAL BLOOD GAS BASE EXCESS 2.7 (-2.0-2.0); ARTERIAL BLOOD GAS FIO2 32 %; ARTERIAL BLOOD GAS PCO2 44 mmHg (35-45); ARTERIAL BLOOD GAS PO2 62 mmHg (75-100); ARTERIAL BLOOD GAS pH 7.41 (7.35-7.45); CARBOXYHEMOGLOBIN 3.5 % THgb (0.0-6.9); HCO3- 27.9 (22-28); HGB O2 SAT 89.9 g/dF (94-100); Methhemoglobin 0.9 % (1.4-1.5); paO2 pAO1 0.36
[2020-02-12] MEDS ORDERED: Lasix 40 MG/4 ML IV ONE (21:42)
[2020-02-12] MEDS: Lantus Insulin SQ SCH (21:58)
[2020-02-13 05:55] LABS: Absolute Neutrophil Ct (ANC) 8.51 (1.4-6.9); BASOPHIL % 0.2 % (0.0-0.4); Basophil (Absolute #) 0.02 (0-0.4); Eosinophil % 0.6 % (0.00-5.0); Eosinophil (Absolute #) 0.07 (0-0.5); Hematocrit 32.8 % (35-47); Lymphocyte (Absolute #) 1.64 (1.0-4.6); Lymphocytes % 14.9 % (24.0-44.0); Mean Cell Volume 100.6 fl (78-100); Mean Corpuscular Hemoglobin 30.7 pg (26-32); Mean Corpuscular Hgb Concent. 30.5 g/dl (32-36); Mean Platelet Volume 11.2 fl (7.5-11.0); Monocyte (Absolute #) 0.75 (0.0-1.3); Monocytes % 6.8 % (0.0-12.0); Neutrophil % 77.5 % (36.0-66.0); Platelet Count 196 K/mm3 (150-450); Red Blood Count 3.26 M/mm3 (4.1-5.4); Red Cell Distribution Width 17.3 % (11.5-14.0)
[2020-02-13 06:17] LABS: ALBUMIN 2.7 g/dL (3.5-5.0); ALKALINE PHOSPHATASE 70 U/L (38-126); ANION GAP 4.8 MEQ/L (5-15); BLOOD UREA NITROGEN 11 mg/dL (7-17); CHLORIDE 106 mmol/L (98-107); Carbon Dioxide 29 mmol/L (22-30); Glucose 115 mg/dL (74-106); Potassium 4.4 mmol/L (3.5-5.1); SGOT/AST 18 U/L (14-36); SGPT/ALT 12 U/L (0-35); SODIUM 136 mmol/L (137-145)
[2020-02-13 06:19] LABS: Total Protein 5.4 g/dL (6.3-8.2)
[2020-02-13 06:22] LABS: Creatinine 1 0.81 mg/dL (0.52-1.04); EST GLOMERULAR FILTRATION RATE > 60.0 ML/MIN
--- NOTE | 2020-02-13 08:52 | PCM.NOTE ---
Date and Time: 02/13/20 0850 Subjective Assessment: patient developed dyspnea and requiring increasing amounts of oxygen overnight. states she had a little diarrhea, feels swollen in her feet Objective Exam General Appearance: obese Neurologic Exam: alert, oriented x 3 Respiratory Exam: crackles/rales Cardiovascular Exam: regular rate/rhythm, normal heart sounds Gastrointestinal/Abdomen Exam: soft, No tenderness, No mass Extremity Exam: normal range of motion, pedal edema, swelling OBJECTIVE DATA Vital Signs: Vital Signs - 24 hr Temp Pulse Resp BP Pulse Ox 02/13/20 07:11 99.0 F 49 L 18 132/62 87 L 02/13/20 04:00 99.7 F 56 L 20 127/64 93 L 02/13/20 00:00 20 02/12/20 23:33 98.7 F 60 20 150/67 93 L 02/12/20 20:00 19 02/12/20 19:30 99.3 F 56 L 19 127/52 91 L 02/12/20 19:16 91 L 02/12/20 19:12 89 L 02/12/20 16:00 98.7 F 61 18 133/64 90 L 02/12/20 12:00 97.9 F 57 L 18 144/69 95 Pain Assessment - Last Documented Pain Intensity 0 Pain Scale Used FLACC Intake and Output: Intake & Output 02/10/20 02/11/20 02/12/20 02/13/20 11:59 11:59 11:59 11:59 Intake Total 410 8764 3540 840 Output Total 450 1100 Balance -40 8764 3540 -260 Weight 114 kg Lab Results: Lab Results-Last 24 Hours 02/12/20 02/12/20 02/12/20 Range/Units 11:36 16:47 20:53 WBC (4.0-10.5) K/mm3 RBC (4.1-5.4) M/mm3 Hgb (12.0-16.0) gm/dl Hct (35-47) % MCV (78-100) fl MCH (26-32) pg MCHC (32-36) g/dl RDW (11.5-14.0) % Plt Count (150-450) K/mm3 MPV (7.5-11.0) fl Gran % (36.0-66.0) % Eos # (Auto) (0-0.5) Absolute Lymphs (auto) (1.0-4.6) Absolute Monos (auto) (0.0-1.3) Lymphocytes % (24.0-44.0) % Monocytes % (0.0-12.0) % Eosinophils % (0.00-5.0) % Basophils % (0.0-0.4) % Absolute Granulocytes (1.4-6.9) Basophils # (0-0.4) Puncture Site RIGHT RADIAL pCO2 44 (35-45) mmHg pO2 62 L (75-100) mmHg Base Excess 2.7 H (-2.0-2.0) O2 Saturation 89.9 L (94-100) g/dF ABG pH 7.41 (7.35-7.45) ABG HCO3 27.9 (22-28) ABG O2 Sat (Measured) 94.0 L (95-100) % Ángel Test y A-a Gradient 111 a/A Ratio 0.36 Hemoglobin 10.8 Carboxyhemoglobin 3.5 (0.0-6.9) % THgb Methemoglobin 0.9 L (1.4-1.5) % Potassium 4.1 (3.5-5.1) Temperature 37.0 C POC O2 Flow Rate 32 % Sodium (137-145) mmol/L Chloride (98-107) mmol/L Carbon Dioxide (22-30) mmol/L Anion Gap (5-15) MEQ/L BUN (7-17) mg/dL Creatinine (0.52-1.04) mg/dL Estimated GFR ML/MIN Glucose (74-106) mg/dL POC Glucometer 146 H 132 H (74 to 106) mg/dL Calcium (8.4-10.2) mg/dL Magnesium (1.6-2.3) mg/dL Total Bilirubin (0.2-1.3) mg/dL AST (14-36) U/L ALT (0-35) U/L Alkaline Phosphatase (38-126) U/L Serum Total Protein (6.3-8.2) g/dL Albumin (3.5-5.0) g/dL 02/12/20 02/13/20 02/13/20 Range/Units 20:55 05:25 05:25 WBC 11.0 H (4.0-10.5) K/mm3 RBC 3.26 L (4.1-5.4) M/mm3 Hgb 10.0 L (12.0-16.0) gm/dl Hct 32.8 L (35-47) % MCV 100.6 H (78-100) fl MCH 30.7 (26-32) pg MCHC 30.5 L (32-36) g/dl RDW 17.3 H (11.5-14.0) % Plt Count 196 (150-450) K/mm3 MPV 11.2 H (7.5-11.0) fl Gran % 77.5 H (36.0-66.0) % Eos # (Auto) 0.07 (0-0.5) Absolute Lymphs (auto) 1.64 (1.0-4.6) Absolute Monos (auto) 0.75 (0.0-1.3) Lymphocytes % 14.9 L (24.0-44.0) % Monocytes % 6.8 (0.0-12.0) % Eosinophils % 0.6 (0.00-5.0) % Basophils % 0.2 (0.0-0.4) % Absolute Granulocytes 8.51 H (1.4-6.9) Basophils # 0.02 (0-0.4) Puncture Site pCO2 (35-45) mmHg pO2 (75-100) mmHg Base Excess (-2.0-2.0) O2 Saturation (94-100) g/dF ABG pH (7.35-7.45) ABG HCO3 (22-28) ABG O2 Sat (Measured) (95-100) % Ángel Test A-a Gradient a/A Ratio Hemoglobin Carboxyhemoglobin (0.0-6.9) % THgb Methemoglobin (1.4-1.5) % Potassium 4.4 (3.5-5.1) Temperature C POC O2 Flow Rate % Sodium 136 L (137-145) mmol/L Chloride 106 (98-107) mmol/L Carbon Dioxide 29 (22-30) mmol/L Anion Gap 4.8 L (5-15) MEQ/L BUN 11 (7-17) mg/dL Creatinine 0.81 (0.52-1.04) mg/dL Estimated GFR > 60.0 ML/MIN Glucose 115 H (74-106) mg/dL POC Glucometer 169 H (74 to 106) mg/dL Calcium 8.0 L (8.4-10.2) mg/dL Magnesium 2.0 (1.6-2.3) mg/dL Total Bilirubin 0.60 (0.2-1.3) mg/dL AST 18 (14-36) U/L ALT 12 (0-35) U/L Alkaline Phosphatase 70 (38-126) U/L Serum Total Protein 5.4 L (6.3-8.2) g/dL Albumin 2.7 L (3.5-5.0) g/dL 02/13/20 Range/Units 07:03 WBC (4.0-10.5) K/mm3 RBC (4.1-5.4) M/mm3 Hgb (12.0-16.0) gm/dl Hct (35-47) % MCV (78-100) fl MCH (26-32) pg MCHC (32-36) g/dl RDW (11.5-14.0) % Plt Count (150-450) K/mm3 MPV (7.5-11.0) fl Gran % (36.0-66.0) % Eos # (Auto) (0-0.5) Absolute Lymphs (auto) (1.0-4.6) Absolute Monos (auto) (0.0-1.3) Lymphocytes % (24.0-44.0) % Monocytes % (0.0-12.0) % Eosinophils % (0.00-5.0) % Basophils % (0.0-0.4) % Absolute Granulocytes (1.4-6.9) Basophils # (0-0.4) Puncture Site pCO2 (35-45) mmHg pO2 (75-100) mmHg Base Excess (-2.0-2.0) O2 Saturation (94-100) g/dF ABG pH (7.35-7.45) ABG HCO3 (22-28) ABG O2 Sat (Measured) (95-100) % Ángel Test A-a Gradient a/A Ratio Hemoglobin Carboxyhemoglobin (0.0-6.9) % THgb Methemoglobin (1.4-1.5) % Potassium (3.5-5.1) Temperature C POC O2 Flow Rate % Sodium (137-145) mmol/L Chloride (98-107) mmol/L Carbon Dioxide (22-30) mmol/L Anion Gap (5-15) MEQ/L BUN (7-17) mg/dL Creatinine (0.52-1.04) mg/dL Estimated GFR ML/MIN Glucose (74-106) mg/dL POC Glucometer 101 (74 to 106) mg/dL Calcium (8.4-10.2) mg/dL Magnesium (1.6-2.3) mg/dL Total Bilirubin (0.2-1.3) mg/dL AST (14-36) U/L ALT (0-35) U/L Alkaline Phosphatase (38-126) U/L Serum Total Protein (6.3-8.2) g/dL Albumin (3.5-5.0) g/dL Radiology Exams: Radiology Procedures Category Date Time Status CHEST 1 VIEW (PORTABLE) Routine Exams 02/13/20 08:49 Ordered Multi-Disciplinary Progress Notes: Multi-Disciplinary Progress Notes 02/12/20 21:57 Respiratory Note by Thien,Naima Patient was c/o SOB and Chest heaviness. O2 sats have been running lower and had to increase oxygen from 2 L to 3 L on CPAP with very little increase in SpO2. ABG results showed PO2 of 62 mmhg. Patient also stated that she felt like she was "filling with fluid" and it hurt to take a deep breath. I called Dr. Solis at 2140 and discussed the patients concerns with him and he ordered for 40 of Lasix IV and to put a lock on her fluid. I passed that information on to the nurse. Initialized on 02/12/20 21:57 - END OF NOTE Assessment/Plan (1) CHF, acute on chronic Current Visit: Yes Status: Acute Assessment & Plan: diurese, fluids locked, check xray and pro-bnp but clinically appears volume overloaded Code(s): I50.9 - HEART FAILURE, UNSPECIFIED (2) C. difficile colitis Current Visit: Yes Status: Acute Assessment & Plan: continue po vanc, dom po and diarrhea improving. Code(s): A04.72 - ENTEROCOLITIS D/T CLOSTRIDIUM DIFFICILE, NOT SPCF RECUR (3) Heme + stool Current Visit: Yes Status: Acute (4) Diarrhea Current Visit: Yes Status: Acute Qualifiers: Diarrhea type: unspecified type Qualified Code(s): R19.7 - Diarrhea, unsp ecified Code(s): R19.7 - DIARRHEA, UNSPECIFIED (5) Nausea & vomiting Current Visit: Yes Status: Acute Qualifiers: Vomiting type: unspecified Vomiting Intractability: non-intractable Qualified Code(s): R11.2 - Nausea with vomiting, unspecified Code(s): R11.2 - NAUSEA WITH VOMITING, UNSPECIFIED (6) CKD (chronic kidney disease) Current Visit: No Status: Chronic Qualifiers: Code(s): N18.9 - CHRONIC KIDNEY DISEASE, UNSPECIFIED (7) Chronic obstructive lung disease Current Visit: No Status: Chronic Code(s): J44.9 - CHRONIC OBSTRUCTIVE PULMONARY DISEASE, UNSPECIFIED (8) Diabetes mellitus Current Visit: No Status: Chronic Qualifiers: Diabetes mellitus type: type 2 Diabetes mellitus terminal block assembler insulin use: with mcfp use Diabetes mellitus complication status: with kidney complications Diabetes mellitus complication detail: with chronic kidney disease Chronic kidney disease stage: stage 1 Qualified Code(s): E11.22 - Type 2 diabetes mellitus with diabetic chronic kidney disease; N18.1 - Chronic kidney disease, stage 1; Z79.4 - exterminator helper (current) use of insulin Code(s): E11.9 - TYPE 2 DIABETES MELLITUS WITHOUT COMPLICATIONS (9) Essential hypertension Current Visit: No Status: Chronic Code(s): I10 - ESSENTIAL (PRIMARY) HYPE RTENSION
[2020-02-13] MEDS: HUMALOG SQ SCH ×3 (09:13→17:27)
[2020-02-13] MEDS: Lyrica 50MG PO SCH ×2 (10:35→22:26)
[2020-02-13] MEDS: Coreg 6.25 MG PO SCH ×2 (10:35→22:25)
[2020-02-13] MEDS: Aricept 10 MG PO SCH (10:36)
[2020-02-13] MEDS: PRADAXA 75 MG PO SCH ×2 (10:36→22:27)
[2020-02-13] MEDS: ZOLOFT 50 MG TABLET PO SCH (10:36)
[2020-02-13] MEDS: Cordarone 200 MG PO SCH (10:36)
[2020-02-13] MEDS: Cyclobenzaprine 10 MG PO SCH ×3 (10:36→22:25)
[2020-02-13] MEDS: Klor Con 10 MEQ PO SCH ×2 (10:36→22:26)
[2020-02-13] MEDS: ZYLOPRIM 100 MG PO SCH ×2 (10:37→22:28)
[2020-02-13] MEDS: VANCOMYCIN HCL CAPSULE PO SCH ×4 (10:37→22:27)
[2020-02-13] MEDS: Imdur 30 MG PO SCH (10:37)
[2020-02-13] MEDS: Namenda 5 MG PO SCH ×2 (10:37→22:27)
[2020-02-13] MEDS: PROTONIX 40 MG IV IV SCH (10:37)
[2020-02-13] MEDS: Ranexa 500 MG PO SCH ×2 (10:37→22:27)
[2020-02-13] MEDS: Lasix 40 MG/4 ML IV SCH ×2 (10:39→17:15)
[2020-02-13] MEDS: Voltaren GEL TOP SCH ×4 (10:55→22:27)
[2020-02-13] MEDS: TYLENOL 325 MG PO PRN ×2 (11:01→22:29)
--- NOTE | 2020-02-13 19:46 | XRAY ---
Indication: Short of breath. Comparison: February 01, 2020. Portable chest demonstrates new diffuse bilateral interstitial alveolar opacities and new small bibasilar effusions. Heart is not enlarged. Bony thorax intact. Comment: Preliminary interpretation was made by [facility]. No critical discrepancy.
[2020-02-13] MEDS: Zofran 4 MG/2 ML VIAL IV PRN (22:29)
[2020-02-13] MEDS: Lantus Insulin SQ SCH (23:25)
[2020-02-14] MEDS: TYLENOL 325 MG PO PRN ×2 (04:41→18:51)
[2020-02-14 04:44] LABS: Absolute Neutrophil Ct (ANC) 8.03 (1.4-6.9); BASOPHIL % 0.2 % (0.0-0.4); Basophil (Absolute #) 0.02 (0-0.4); Hematocrit 32.9 % (35-47); Hemoglobin 10.1 gm/dl (12.0-16.0); Lymphocyte (Absolute #) 1.63 (1.0-4.6); Lymphocytes % 15.5 % (24.0-44.0); Mean Cell Volume 99.7 fl (78-100); Mean Corpuscular Hemoglobin 30.6 pg (26-32); Mean Corpuscular Hgb Concent. 30.7 g/dl (32-36); Mean Platelet Volume 11.1 fl (7.5-11.0); Monocyte (Absolute #) 0.73 (0.0-1.3); Monocytes % 6.9 % (0.0-12.0); Neutrophil % 76.4 % (36.0-66.0); Platelet Count 201 K/mm3 (150-450); Red Cell Distribution Width 17.4 % (11.5-14.0); White Blood Count 10.5 K/mm3 (4.0-10.5)
[2020-02-14 05:10] LABS: ANION GAP 3.9 MEQ/L (5-15); BLOOD UREA NITROGEN 13 mg/dL (7-17); CHLORIDE 105 mmol/L (98-107); Calcium 8.2 mg/dL (8.4-10.2); Carbon Dioxide 33 mmol/L (22-30); Creatinine 1 0.83 mg/dL (0.52-1.04); EST GLOMERULAR FILTRATION RATE > 60.0 ML/MIN; Glucose 127 mg/dL (74-106); NT PRO BNP 1400 pg/mL (0-900); Potassium 3.9 mmol/L (3.5-5.1); SODIUM 137 mmol/L (137-145)
[2020-02-14] MEDS: HUMALOG SQ SCH ×3 (08:52→18:17)
--- NOTE | 2020-02-14 08:56 | PCM.NOTE ---
Date and Time: 02/14/20 0848 Subjective Assessment: Still c/o LLQ pain. Feels "puffy" all over. Last episode of diarrhea fairly large, at midnight. - Review of Systems Constitutional: No Fever Respiratory: Short Of Breath Cardiac: Edema Abdominal/Gastrointestinal: Abdominal Pain Objective Exam General Appearance: mild distress, alert, obese Neurologic Exam: oriented x 3, cooperative Skin Exam: normal color, warm, dry, No rash Respiratory Exam: lungs clear, diminished breath sounds, No crackles/rales, No rhonchi, No wheezing Cardiovascular Exam: regular rate/rhythm, normal heart sounds, No murmur Gastrointestinal/Abdomen Exam: soft, normal bowel sounds, tenderness (LLQ TTP), No distention, No mass, No guarding, No rebound OBJECTIVE DATA Vital Signs: Vital Signs - 24 hr Temp Pulse Resp BP Pulse Ox 02/14/20 07:27 97.8 F 55 L 18 122/53 93 L 02/14/20 07:26 93 L 02/14/20 07:10 95 02/14/20 04:00 98.4 F 57 L 20 138/64 94 L 02/13/20 23:41 98.4 F 61 20 146/65 93 L 02/13/20 20:10 95 02/13/20 19:53 98.3 F 56 L 20 130/67 93 L 02/13/20 16:00 97.9 F 53 L 18 128/61 95 02/13/20 12:00 97.9 F 57 L 18 133/65 97 02/13/20 10:38 95 Pain Assessment - Last Documented Pain Intensity 6 Pain Scale Used 0-10 Pain Scale Intake and Output: Intake & Output 02/11/20 02/12/20 02/13/20 02/14/20 11:59 11:59 11:59 11:59 Intake Total 8764 3540 840 1080 Output Total 1750 2400 Balance 8764 3540 -910 -1320 Weight 120.5 kg Lab Results: Lab Results-Last 24 Hours 02/13/20 02/13/20 02/13/20 Range/Units 05:30 11:47 16:27 WBC (4.0-10.5) K/mm3 RBC (4.1-5.4) M/mm3 Hgb (12.0-16.0) gm/dl Hct (35-47) % MCV (78-100) fl MCH (26-32) pg MCHC (32-36) g/dl RDW (11.5-14.0) % Plt Count (150-450) K/mm3 MPV (7.5-11.0) fl Gran % (36.0-66.0) % Eos # (Auto) (0-0.5) Absolute Lymphs (auto) (1.0-4.6) Absolute Monos (auto) (0.0-1.3) Lymphocytes % (24.0-44.0) % Monocytes % (0.0-12.0) % Eosinophils % (0.00-5.0) % Basophils % (0.0-0.4) % Absolute Granulocytes (1.4-6.9) Basophils # (0-0.4) Sodium (137-145) mmol/L Potassium (3.5-5.1) mmol/L Chloride (98-107) mmol/L Carbon Dioxide (22-30) mmol/L Anion Gap (5-15) MEQ/L BUN (7-17) mg/dL Creatinine (0.52-1.04) mg/dL Estimated GFR ML/MIN Glucose (74-106) mg/dL POC Glucometer 100 146 H (74 to 106) mg/dL Calcium (8.4-10.2) mg/dL NT-Pro-B Natriuret Pep 2070 H (0-900) pg/mL 02/13/20 02/14/20 02/14/20 Range/Units 20:40 04:30 04:30 WBC 10.5 (4.0-10.5) K/mm3 RBC 3.30 L (4.1-5.4) M/mm3 Hgb 10.1 L (12.0-16.0) gm/dl Hct 32.9 L (35-47) % MCV 99.7 (78-100) fl MCH 30.6 (26-32) pg MCHC 30.7 L (32-36) g/dl RDW 17.4 H (11.5-14.0) % Plt Count 201 (150-450) K/mm3 MPV 11.1 H (7.5-11.0) fl Gran % 76.4 H (36.0-66.0) % Eos # (Auto) 0.10 (0-0.5) Absolute Lymphs (auto) 1.63 (1.0-4.6) Absolute Monos (auto) 0.73 (0.0-1.3) Lymphocytes % 15.5 L (24.0-44.0) % Monocytes % 6.9 (0.0-12.0) % Eosinophils % 1.0 (0.00-5.0) % Basophils % 0.2 (0.0-0.4) % Absolute Granulocytes 8.03 H (1.4-6.9) Basophils # 0.02 (0-0.4) Sodium 137 (137-145) mmol/L Potassium 3.9 (3.5-5.1) mmol/L Chloride 105 (98-107) mmol/L Carbon Dioxide 33 H (22-30) mmol/L Anion Gap 3.9 L (5-15) MEQ/L BUN 13 (7-17) mg/dL Creatinine 0.83 (0.52-1.04) mg/dL Estimated GFR > 60.0 ML/MIN Glucose 127 H (74-106) mg/dL POC Glucometer 91 (74 to 106) mg/dL Calcium 8.2 L (8.4-10.2) mg/dL NT-Pro-B Natriuret Pep 1400 H (0-900) pg/mL 02/14/20 Range/Units 07:14 WBC (4.0-10.5) K/mm3 RBC (4.1-5.4) M/mm3 Hgb (12.0-16.0) gm/dl Hct (35-47) % MCV (78-100) fl MCH (26-32) pg MCHC (32-36) g/dl RDW (11.5-14.0) % Plt Count (150-450) K/mm3 MPV (7.5-11.0) fl Gran % (36.0-66.0) % Eos # (Auto) (0-0.5) Absolute Lymphs (auto) (1.0-4.6) Absolute Monos (auto) (0.0-1.3) Lymphocytes % (24.0-44.0) % Monocytes % (0.0-12.0) % Eosinophils % (0.00-5.0) % Basophils % (0.0-0.4) % Absolute Granulocytes (1.4-6.9) Basophils # (0-0.4) Sodium (137-145) mmol/L Potassium (3.5-5.1) mmol/L Chloride (98-107) mmol/L Carbon Dioxide (22-30) mmol/L Anion Gap (5-15) MEQ/L BUN (7-17) mg/dL Creatinine (0.52-1.04) mg/dL Estimated GFR ML/MIN Glucose (74-106) mg/dL POC Glucometer 132 H (74 to 106) mg/dL Calcium (8.4-10.2) mg/dL NT-Pro-B Natriuret Pep (0-900) pg/mL Radiology Exams: Radiology Procedures Category Date Time Status CHEST 1 VIEW (PORTABLE) Routine Exams 02/13/20 08:49 Completed Assessment/Plan (1) C. difficile colitis Current Visit: Yes Status: Acute Assessment & Plan: Decrease diet. Still having diarrhea. Code(s): A04.72 - ENTEROCOLITIS D/T CLOSTRIDIUM DIFFICILE, NOT SPCF RECUR (2) Fluid overload Current Visit: Yes Status: Acute Qualifiers: Hypervolemia type: other Qualified Code(s): E87.79 - Other fluid overload Code(s): E87.70 - FLUID OVERLOAD, UNSPECIFIED (3) Back pain Current Visit: Yes Status: Acute Qualifiers: Back pain location: low back pain Chronicity: unspecified Back pain laterality: left Sciatica presence: without sciatica Qualified Code(s): M54.5 - Low back pain Code(s): M54.9 - DORSALGIA, UNSPECIFIED (4) Diabetes mellitus Current Visit: No Status: Chronic Qualifiers: Diabetes mellitus type: type 2 Diabetes mellitus emt intermediate insulin use: with emt intermediate use Diabetes mellitus complication status: with kidney complications Diabetes mellitus complication detail: with chronic kidney di sease Chronic kidney disease stage: stage 1 Qualified Code(s): E11.22 - Type 2 diabetes mellitus with diabetic chronic kidney disease; N18.1 - Chronic kidney disease, stage 1; Z79.4 - shelter (current) use of insulin Code(s): E11.9 - TYPE 2 DIABETES MELLITUS WITHOUT COMPLICATIONS (5) Essential hypertension Current Visit: No Status: Chronic Code(s): I10 - ESSENTIAL (PRIMARY) HYPERTENSION (6) Renal insufficiency Current Visit: No Status: Chronic
[2020-02-14] MEDS: Lyrica 50MG PO SCH ×2 (09:51→22:16)
[2020-02-14] MEDS: VANCOMYCIN HCL CAPSULE PO SCH ×4 (09:51→22:17)
[2020-02-14] MEDS: Ranexa 500 MG PO SCH ×2 (09:51→22:16)
[2020-02-14] MEDS: PROTONIX 40 MG IV IV SCH (09:51)
[2020-02-14] MEDS: Cordarone 200 MG PO SCH (09:51)
[2020-02-14] MEDS: Klor Con 10 MEQ PO SCH ×2 (09:51→22:15)
[2020-02-14] MEDS: Aricept 10 MG PO SCH (09:51)
[2020-02-14] MEDS: Namenda 5 MG PO SCH ×2 (09:52→22:16)
[2020-02-14] MEDS: Coreg 6.25 MG PO SCH ×2 (09:52→22:18)
[2020-02-14] MEDS: Cyclobenzaprine 10 MG PO SCH ×3 (09:52→22:15)
[2020-02-14] MEDS: Voltaren GEL TOP SCH ×6 (09:52→22:17)
[2020-02-14] MEDS: ZOLOFT 50 MG TABLET PO SCH (09:52)
[2020-02-14] MEDS: Imdur 30 MG PO SCH (09:52)
[2020-02-14] MEDS: ZYLOPRIM 100 MG PO SCH ×2 (09:52→22:18)
[2020-02-14] MEDS: PRADAXA 75 MG PO SCH ×2 (10:12→22:16)
[2020-02-14] MEDS: BUMEX 1 MG IV PRN (16:03)
[2020-02-14] MEDS: Lantus Insulin SQ SCH (22:15)
[2020-02-15] MEDS: TYLENOL 325 MG PO PRN ×3 (04:07→22:28)
[2020-02-15] MEDS: HUMALOG SQ SCH ×3 (08:06→17:31)
--- NOTE | 2020-02-15 08:51 | PCM.NOTE ---
Date and Time: 02/15/20844 Subjective Assessment: Pt still c/o feeling very bloated everywhere, with LLQ pain and L lower back pain. She is complaining of chest pressure this morning, 11/14 - she states she's had it since her admission. Tolerating full liquid diet, although with "lots of belching." Yesterday had 4-5 episodes of diarrhea, and 1 episode this morning. - Review of Systems Constitutional: No Fever Abdominal/Gastrointestinal: Abdominal Pain, Diarrhea Objective Exam General Appearance: no apparent distress, alert, obese Neurologic Exam: oriented x 3, cooperative Skin Exam: normal color, warm, dry, No rash Ears, Nose, Throat Exam: moist mucous membranes Respiratory Exam: lungs clear, diminished breath sounds, No crackles/rales, No rhonchi, No wheezing Cardiovascular Exam: regular rate/rhythm, normal heart sounds, No murmur Gastrointestinal/Abdomen Exam: soft, normal bowel sounds, tenderness (LLQ), No distention, No mass, No guarding, No rebound Extremity Exam: other (BOB hose on. No edema bilat.) OBJECTIVE DATA Vital Signs: Vital Signs - 24 hr Temp Pulse Resp BP Pulse Ox 02/15/20 08:00 19 02/15/20 07:51 96 02/15/20 07:35 97.8 F 57 L 19 150/67 92 L 02/15/20 04:00 97.7 F 62 24 165/71 93 L 02/15/20 00:00 97.9 F 61 20 137/60 90 L 02/14/20 20:00 18 02/14/20 19:52 92 L 02/14/20 18:55 98 F 57 L 18 115/50 93 L 02/14/20 16:00 97.8 F 72 18 128/65 95 02/14/20 12:00 97.8 F 52 L 18 128/65 95 Pain Assessment - Last Documented Pain Intensity 8 Pain Scale Used [facility] Intake and Output: Intake & Output 02/12/20 02/13/20 02/14/20 02/15/20 11:59 11:59 11:59 11:59 Intake Total 3540 840 1080 600 Output Total 1750 2400 900 Balance 3540 -910 -1320 -300 Weight 120.5 kg 121.7 kg Lab Results: Lab Results-Last 24 Hours 02/14/20 02/14/20 02/14/20 Range/Units 11:49 16:22 21:19 POC Glucometer 171 H 107 H 121 H (74 to 106) mg/dL 02/15/20 Range/Units 07:23 POC Glucometer 166 H (74 to 106) mg/dL Radiology Exams: Radiology Procedures Category Date Time Status CHEST 1 VIEW (PORTABLE) Routine Exams 02/13/20 08:49 Completed CHEST 1 VIEW (PORTABLE) Stat Exams 02/15/20 08:42 Ordered ECHO W/2D AND DOPPLER [US] Routine Exams 02/15/20 Ordered Multi-Disciplinary Progress Notes: Multi-Disciplinary Progress Notes 02/15/20 01:37 Respiratory Note by Jewel Lauren RT REC'D CALL FROM NURSING RE: PT SATS BETWEEN 85-87% ON 5LPM O2. WHEN I ENTERED PT RM SHE HAD ALREADY REMOVED PROBE FROM HER FINGER FROM WHEN NURSING SALEEM D CONFIRMED PLACEMENT. I PLACED PROBE AND SATS WERE 88% BUT PT HAD WOKE UP BY THEN. PT CONTINUES TO REFUSE CPAP AND STATES THAT SHE WILL LET US KNOW IF/WHEN SHE WANTS TO WEAR IT. I RAISED HOB AND ASKED PT TO ROLL TO THE SIDE WELL INCREASED PT TO 6LPM. SATS CARMELA TO 91%. BY THE TIME I LEFT PT RM AND RETURNED TO NURSING STATION TO CONVEY INFO THE PT HAD ALREADY REMOVED PROBE FROM FINGER AGAIN. Initialized on 02/15/20 01:37 - END OF NOTE 02/14/20 13:21 Case Management Note by Mary Montoya PHONED [facility] [place], TO VERIFY CURRENT O2 ORDERS, PT CURRENTLY RECEIVING 2L O2 PER NC 24HRS/DAY. Initialized on 02/14/20 13:21 - END OF NOTE 02/14/20 09:20 Case Management Note by Mary Montoya SPOKE WITH PATIENT, CONTINUES TO DENY ANY FURTHER NEEDS AT DISCHARGE, STILL ACUTELY ILL. OXYGEN HIGHER THAN HOME LEVEL AT THIS TIME, WILL CONTINUE TO FOLLOW AND PROVIDE ANY DISCHARGE NEEDS. Initialized on 02/14/20 09:20 - END OF NOTE Assessment/Plan (1) Chest pain Current Visit: No Status: Acute Qualifiers: Chest pain type: other chest pain Qualified Code(s): R07.89 - Other chest pain; R07.8 - Other chest pain Assessment & Plan: Today is the first time she has complained of the chest pressure to me. Would like to r/o VT and PE. EKG and troponin stat. D-dimer stat. Code(s): R07.9 - CHEST PAIN, UNSPECIFIED (2) C. difficile colitis Current Visit: Yes Status: Acute Assessment & Plan: Pt is on day #6 of po vancomycin. Will not change current therapy as the first line tx for C. diff is 10 day course of po vancomycin. Code(s): A04.72 - ENTEROCOLITIS D/T CLOSTRIDIUM DIFFICILE, NOT SPCF RECUR (3) Fluid overload Current Visit: Yes Status: Acute Qualifiers: Hypervolemia type: other Qualified Code(s): E87.79 - Other fluid overload Assessment & Plan: On bumex Code(s): E87.70 - FLUID OVERLOAD, UNSPECIFIED (4) Back pain Current Visit: Yes Status: Acute Qualifiers: Back pain location: low back pain Chronicity: unspecified Back pain laterality: left Sciatica presence: without sciatica Qualified Code(s): M54.5 - Low back pain Code(s): M54.9 - DORSALGIA, UNSPECIFIED (5) Diabetes mellitus Current Visit: No Status: Chronic Qualifiers: Diabetes mellitus type: type 2 Diabetes mellitus rn long term care insulin use: with rn long term care use Diabetes mellitus complication status: with kidney complications Diabetes mellitus complication detail: with chronic kidney disease Chronic kidney disease stage: stage 1 Qualified Code(s): E11.22 - Type 2 diabetes mellitus with diabetic chronic kidney disease; N18.1 - Chronic kidney disease, stage 1; Z79.4 - FPC (current) use of insulin Code(s): E11.9 - TYPE 2 DIABETES MELLITUS WITHOUT COMPLICATIONS (6) Essential hypertension Current Visit: No Status: Chronic Code(s): I10 - ESSENTIAL (PRIMARY) HYPERTENSION (7) Renal insufficiency Current Visit: No Status: Chronic (8) Shortness of breath Current Visit: No Status: Acute Assessment & Plan: concern for CHF. Get echo if none done in the past 6 mo. May need to do CT chest regardless of d-dimer. Start with CXR. Pt is on pradaxa. Code(s): R06.02 - SHORTNESS OF BREATH
--- NOTE | 2020-02-15 09:13 | XRAY ---
Indication: Short of breath. Comparison: February 13, 2020. Portable chest again demonstrates diffuse bilateral interstitial alveolar opacities worsened in right upper lobe with developing left upper lobe subsegmental atelectasis. Bibasilar effusions have improved with tiny residual. Heart is not enlarged.
[2020-02-15] MEDS: Cyclobenzaprine 10 MG PO SCH ×3 (09:35→21:45)
[2020-02-15] MEDS: PROTONIX 40 MG IV IV SCH (09:35)
[2020-02-15] MEDS: Imdur 30 MG PO SCH (09:35)
[2020-02-15] MEDS: ZYLOPRIM 100 MG PO SCH ×2 (09:36→21:44)
[2020-02-15] MEDS: Klor Con 10 MEQ PO SCH ×2 (09:36→21:45)
[2020-02-15] MEDS: Cordarone 200 MG PO SCH (09:36)
[2020-02-15] MEDS: VANCOMYCIN HCL CAPSULE PO SCH ×4 (09:36→21:45)
[2020-02-15] MEDS: Namenda 5 MG PO SCH ×2 (09:36→21:45)
[2020-02-15 09:37] LABS: Hematocrit 33.8 % (35-47); Hemoglobin 10.2 gm/dl (12.0-16.0); Mean Cell Volume 100.6 fl (78-100); Mean Corpuscular Hemoglobin 30.4 pg (26-32); Mean Corpuscular Hgb Concent. 30.2 g/dl (32-36); Mean Platelet Volume 11.5 fl (7.5-11.0); Platelet Count 224 K/mm3 (150-450); Red Blood Count 3.36 M/mm3 (4.1-5.4); Red Cell Distribution Width 17.3 % (11.5-14.0); White Blood Count 7.4 K/mm3 (4.0-10.5)
[2020-02-15] MEDS: Lyrica 50MG PO SCH ×2 (09:37→21:45)
[2020-02-15] MEDS: Coreg 6.25 MG PO SCH ×2 (09:37→21:46)
[2020-02-15] MEDS: Aricept 10 MG PO SCH (09:37)
[2020-02-15] MEDS: PRADAXA 75 MG PO SCH ×2 (09:37→21:45)
[2020-02-15] MEDS: ZOLOFT 50 MG TABLET PO SCH (09:37)
[2020-02-15] MEDS: Ranexa 500 MG PO SCH ×2 (09:37→21:46)
[2020-02-15] MEDS: BUMEX 1 MG IV PRN (09:39)
[2020-02-15] MEDS: Voltaren GEL TOP SCH ×4 (09:55→21:47)
[2020-02-15 09:58] LABS: ANION GAP 9.3 MEQ/L (5-15); BLOOD UREA NITROGEN 12 mg/dL (7-17); CHLORIDE 104 mmol/L (98-107); Calcium 8.6 mg/dL (8.4-10.2); Carbon Dioxide 29 mmol/L (22-30); Creatinine 1 0.66 mg/dL (0.52-1.04); EST GLOMERULAR FILTRATION RATE > 60.0 ML/MIN; Glucose 222 mg/dL (74-106); MAGNESIUM 2.1 mg/dL (1.6-2.3); Potassium 4.3 mmol/L (3.5-5.1); SODIUM 138 mmol/L (137-145)
--- NOTE | 2020-02-15 13:06 | XRAY ---
Indication: Chest pain and short of breath. Elevated d-dimer. COPD, CHF, and atrial fibrillation. Multiple contiguous axial images obtained through the chest using 80 cc Isovue 370 contrast and PE protocol. Comparison: CT chest without contrast February 01, 2020. There is satisfactory opacification of the pulmonary arteries to include the lobar and segmental branches. No pulmonary embolus. Heart is larger in size but still within normal limits. Aorta is normal in course and caliber. No pathologic mediastinal/hilar lymphadenopathy. Lungs demonstrates new diffuse scattered interstitial alveolar opacities greatest in both upper lobes, new moderate bilateral pleural effusions, and new scattered subsegmental atelectasis greatest in left upper lobe. Bony thorax intact again with mild degenerative changes throughout the spine. Limited upper abdomen remains unremarkable. Impression: 1. Negative pulmonary embolus. 2. New bilateral diffuse interstitial alveolar opacities and bilateral effusions without cardiomegaly. Findings typical for acute respiratory distress syndrome. Rule out noncardiogenic causes.
[2020-02-15] MEDS: BUMEX 1 MG IV SCH ×2 (15:31→21:41)
[2020-02-15 19:45] VITALS: BP 150/68; PULSE 67; O2SAT 95
[2020-02-15] MEDS: Lantus Insulin SQ SCH (21:47)
--- NOTE | 2020-02-16 15:46 | ECHO ---
DATE OF PROCEDURE: 02/15/2020 CLINICAL INFORMATION: Shortness of breath, edema. The echocardiogram was technically difficult due to a limited window associated with morbid obesity. The M-mode 2D, and Doppler echocardiogram including color flow Doppler shows the left ventricle is normal in size at 4.9 cm. There is no thrombus present. The septal wall thickness is 1.1 cm. The left ventricular posterior wall thickness is 0.9 cm. There is normal contractility of the left ventricle. The ejection fraction is calculated to be between 60 and 65%. The right ventricle is normal. The left atrium is normal 3.9 cm. The interatrial septum is intact. The right atrium is normal. The aortic valve opens well. There is no aortic regurgitation. There is mitral valve calcification associated with trace amount of mitral regurgitation. There is mild tricuspid regurgitation. The right ventricular systolic pressure is increased at 46 mm of Mercury. The pulmonic valve is not well visualized. The aortic root is 3.2 cm. There is no pericardial effusion present. IMPRESSION: 1) NORMAL CONTRACTILITY OF THE LEFT VENTRICLE. 2) TRACE AMOUNT OF MILD MITRAL REGURGITATION. 3) MILD MITRAL REGURGITATION. 4) MODERATE PULMONARY HYPERTENSION.
== END 2020-02-15 23:00 | disposition short-term general hospital (02) | DRG 371 ==
LOC: ED 14:09 → MED SURG 18:30 → OBSVTOIN 02-10 09:15
PROVIDERS: ADMIT Family Medicine; ATTEND Family Medicine
DX: A04.72 Enterocolitis due to Clostridium difficile, not specified as recurrent (principal); I13.0 Hypertensive heart and chronic kidney disease with heart failure and stage 1 through stage 4 chronic kidney disease, or unspecified chronic kidney disease; I50.9 Heart failure, unspecified; N18.1 Chronic kidney disease, stage 1; E11.22 Type 2 diabetes mellitus with diabetic chronic kidney disease; Z79.4 Long term (current) use of insulin; J80 Acute respiratory distress syndrome; R07.9 Chest pain, unspecified; M25.552 Pain in left hip; J44.9 Chronic obstructive pulmonary disease, unspecified; E78.00 Pure hypercholesterolemia, unspecified; R10.30 Lower abdominal pain, unspecified; M54.9 Dorsalgia, unspecified; R53.1 Weakness; R11.2 Nausea with vomiting, unspecified; Z79.899 Other long term (current) drug therapy
CPT/HCPCS: 0097U; 36000; 36415; 36600; 71045; 71260; 74177; 80048; 80053; 81001; 82150; 82375; 82803; 82947; 83036; 83690; 83735; 83880; 84484; 85025; 85027; 85379; 87493; 93005; 93268; 93306; 94003; 94660; 94760; 94762; 96374; 99285; G0328; G0378; 82274; J1817; J1940; J2405; A9270-GY

== ENCOUNTER 2020-02-24 13:03 | Inpatient (IN) | payer MEDICARE, BC ==
[2020-02-24] MEDS ORDERED: Sodium Chloride 0.9% 1000 ML 1,000 ML IV STA (13:25)
[2020-02-24] MEDS ORDERED: Sodium Chloride 0.9% 1000 ML 1,000 ML ONE (13:33)
--- NOTE | 2020-02-24 13:34 | ERPHSYRPT ---
- History of Present Illness Time Seen by Provider: 02/24/20 13:20 Historian: patient Exam Limitations: no limitations Patient Subjective Stated Complaint: pt here for weakness, loose stools and abnormal labs, she states she was dx with c diff, she had 2 stools today, vomt ied x2 today, she was able to eat today Triage Nursing Assessment: pt alert, arrived per wc, face luana in place, resp easy,skin w/d/p Physician History: She has generalized weakness for the past 3 weeks due to having persistent diarrhea with 2 admissions to [facility] in the past 3 weeks. She was diagnosed with C. difficile. She had lab work drawn yesterday which was abnormal in regards to her kidney function and she was referred to the emergency room by her primary care provider. Timing/Duration: week(s) (three) Activities at Onset: none Quality: cramping Abdominal Pain Onset Location: generalized abdomen Pain Radiation: no radiation Severity of Pain-Max: mild Severity of Pain-Current: none Modifying Factors: Worsens With: nothing Associated Symptoms: diarrhea, fatigue, nausea, vomiting, weakness (Generalized), No back, No chest pain, No diaphoresis, No fever/chills, No headache, No heartburn, No loss of appetite, No neck pain, No rash, No shortness of breath, No syncope Previous symptoms: same symptoms as today, recent hospitalization, recently gavino mayra (oral Vancomycin, currently on it) Allergies/Adverse Reactions: morphine Allergy (Severe, Verified 02/24/20 13:27) anaphylaxis pt went into respiratory failure and acute renal failure the last time she had morphine. "I was in a coma for a week" adhesive Allergy (Mild, Verified 02/24/20 13:27) Blisters aspirin Allergy (Verified 02/24/20 13:27) Difficulty Breathing PT STATES THAT SHE CAN TAKE ASPIRIN 81 MG BUT NOTHING HIGHER IN DOSE. Penicillins Allergy (Verified 02/24/20 13:27) Rash povidone-iodine [From Betadine] Allergy (Verified 02/24/20 13:27) BLISTERES soap [From Betadine] Allergy (Verified 02/24/20 13:27) Blisters Home Medications: Allopurinol 100 mg [Zyloprim 100 mg] 100 mg PO BID 11/18/18 [History] Amiodarone HCl 200 mg [Cordarone 200 MG] 200 mg PO DAILY 11/18/18 [History] Carvedilol 12.5 mg [Coreg 12.5 mg] 6.25 mg PO BID 11/18/18 [History] Dabigatran Etexilate Mesylate [Pradaxa] 150 mg PO BID 11/18/18 [History] Isosorbide Mononitrate 30 mg [Imdur 30 MG] 30 mg PO DAILY 11/18/18 [Histo ry] PANTOPRAZOLE 40 mg Tablet [Protonix 40MG Tablet] 40 mg PO DAILY 11/18/18 [History] Ranolazine [Ranexa] 1,000 mg PO BID 11/18/18 [History] Sertraline HCl 50 mg [Zoloft 50 mg Tablet] 50 mg PO DAILY 11/18/18 [History] Potassium Chloride 10 Meq Tab* [Klor Con 10 MEQ] 20 meq PO BID 01/02/19 [History] Insulin Glargine [Lantus Insulin] 26 unit SQ QHS 03/23/19 [History] Insulin Lispro [Humalog] 14 unit SQ BREAKFAST 03/23/19 [History] Pregabalin 50 mg [Lyrica 50MG] 50 mg PO BID 03/23/19 [History] Insulin Lispro [Humalog] 10 unit SQ DINNER 11/03/19 [History] Insulin Lispro [Humalog] 12 unit SQ LUNCH 11/03/19 [History] Bumetanide 4 mg PO DAILY 02/09/20 [History] Donepezil HCl 10 mg [Aricept 10 MG] 1 tab PO DAILY 02/09/20 [History] Memantine HCl 1 tab PO BID 02/09/20 [History] Vancomycin HCl [Vancocin HCl] 250 mg QID 02/24/20 [History] Hx Tetanus, Diphtheria Vaccination/Date Given: Yes Hx Influenza Vaccination/Date Given: Yes Hx Pneumococcal Vaccination/Date Given: Yes Immunizations Up to Date: Yes Travel Risk - International Travel Have you traveled outside of the country in past 3 weeks: No - Coronavirus Screening Are you exhibiting any of the following symptoms?: No Close contact with a COVID-19 positive Pt in past 14-21 Days: No - Review of Systems Constitutional: Fatigue, Malaise, Weakness, No Fever, No Chills Eyes: No Eye Pain, No Eye Redness Ears, Nose, & Throat: No Sinus Drainage, No Throat Pain, No Painful Swallowing Respiratory: No Cough, No Dyspnea Cardiac: No Chest Pain, No Edema, No Syncope Abdominal/Gastrointestinal: Abdominal Pain, Nausea, Vomiting, Diarrhea, No Hematemesis, No Hematochezia, No Melena Genitourinary Symptoms: No Dysuria, No Hematuria, No Flank Pain Musculoskeletal: No Back Pain, No Neck Pain Skin: No Rash Neurological: No Dizziness, No Focal Weakness, No Headache, No Sensory Changes Psychological: No Symptoms Endocrine: No Symptoms Hematologic/Lymphatic: Easy Bruising All Other Systems: Reviewed and Negative - Past Medical History Pertinent Past Medical History: Yes Neurological History: Peripheral Neuropathy ENT History: No Pertinent History Cardiac History: Angina, Arrhythmia, Congestive Heart Failure, High Cholesterol, Hypertension Respiratory History: COPD, Pneumonia Endocrine Medical History: Diabetes Type II Musculoskeletal History: Arthritis, Fractures GI Medical History: No Pertinent History History: Other Psycho-Social History: No Pertinent History Female Reproductive Disorders: No Pertinent History Other Medical History: Impaired kidney function, HYPOKALEMIA, LEFT ANKLE FRACTURE 05/07/19, - Past Surgical History Past Surgical History: Yes Neuro Surgical History: No Pertinent History Cardiac: No Pertinent History Respiratory: No Pertinent History Gastrointestinal: Appendectomy Genitourinary: No Pertinent History Musculoskeletal: Orthopedic Surgery Female Surgical History: Hysterectomy Other Surgical History: Multiple hand surgeries, - Social History Smoking Status: Former smoker How long have you smoked: 1 year Exposure to second hand smoke: No Alcohol Use: None Drug Use: none Patient Lives Alone: No Significant Family History: diabetes, hypertension - Female History Hx Last Menstrual Period: psot Hx Now: No - Nursing Vital Signs Nursing Vital Signs: Initial Vital Signs Temperature 97 F 02/24/20 13:20 Pulse Rate 62 02/24/20 13:20 Respiratory Rate 24 02/24/20 13:20 Blood Pressure 142/47 02/24/20 13:20 O2 Sat by Pulse Oximetry 97 02/24/20 13:20 Pain Scale Pain Intensity 4 - Physical Exam General Appearance: no apparent distress, alert Eye Exam: PERRL/EOMI, eyes nml inspection Ears, Nose, Throat Exam: normal ENT inspection, pharynx normal, moist mucous membranes Neck Exam: normal inspection, non-tender, supple, full range of motion Respiratory Exam: normal breath sounds, lungs clear, airway intact, No respiratory distress, No accessory muscle use, No prolonged expirations, No crackles/rales, No rhonchi, No wheezing, No stridor Cardiovascular Exam: regular rate/rhythm, normal heart sounds Gastrointestinal/Abdomen Exam: soft, normal bowel sounds, No tenderness, No distention, No mass, No guarding, No rebound Back Exam: normal inspection, normal range of motion, No CVA tenderness, No vertebral tenderness Extremity Exam: normal inspection, normal range of motion, pelvis stable Neurologic Exam: alert, oriented x 3, cooperative, 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 tested, normal mood/affect, sensation nml, No motor deficits Skin Exam: normal color, warm, dry, ecchymosis, No rash, No petechiae SpO2 Interpretation: normal SpO2: 97 O2 Delivery: Room Air - Course Nursing assessment & vital signs reviewed: Yes EKG Interpreted by Me: RATE (53), Sinus Silverio, Left [place] Deviation, prolonged QT interval, NORMAL QRS, NORMAL ST-T, Other (Sinus bradycardia with prolonged TX and QTc intervals, left axis deviation with no acute ST or T wave changes, unchanged comparison EKG from 02/10/2020) - Radiology Exams Chest X-ray Interpretation: Interpreted by me, Reviewed by me, Other (Per radiologist interpretation: Portable chest demonstrates marked clearing of previous bilateral interstitial alveolar opacities with minimal right infrahilar residual. Minimal left upper lobe subsegmental atelectasis/scarring. Remaining heart and lungs unremarkable in comparison to chest x-ray f) - CT Exams Abdomen/Pelvis CT Interpretation: Other (Radiologist interpretation: Mild distal descending/proximal sigmoid diverticulitis with no complications: Colonic diverticulosis; Remaining liver, gallbladder, pancreas, spleen, adrenal glands, kidneys, ureters, and bladder appear unremarkable for noncontrast exam. Stable mild aortoiliac calcificat) Ordered Tests: Active Orders 24 hr Category Date Time Status Up Ad Radha ROUTINE Activity 02/24/20 15:31 Active Call Admit Doctor for Orders ON ADMISSION Care 02/24/20 15:31 Active Code Status Order ROUTINE Care 02/24/20 15:30 Active EKG-ER Only STAT Care 02/24/20 13:27 Active IV Care Q6H Care 02/24/20 15:30 Active IV Insertion STAT Care 02/24/20 13:25 Active Isolation, Initiate & Maintain Q6H Care 02/24/20 15:[address] in Observation ROUTINE Care 02/24/20 15:30 Active Telemetry q6h Care 02/24/20 15:30 Active Weight,Daily 0600 Care 02/24/20 15:30 Active Heart-Healthy Diet Diet 02/24/20 Dinner Active ABDOMEN AND PELVIS W/0 CONTRAS [CT] Stat Exams 02/24/20 13:26 Completed CHEST 1 VIEW (PORTABLE) Stat Exams 02/24/20 13:26 Completed AMYLASE Stat Lab 02/24/20 13:25 Completed CBC W DIFF AM.LAB Lab 02/25/20 04:00 Ordered CBC W DIFF Stat Lab 02/24/20 13:25 Completed CMP AM.LAB Lab 02/25/20 04:00 Ordered CMP Stat Lab 02/24/20 14:00 Completed LIPASE Stat Lab 02/24/20 13:25 Completed Lactic Acid Stat Lab 02/24/20 13:35 Completed Lactic Acid Stat Lab 02/24/20 15:39 Received MAGNESIUM Stat Lab 02/24/20 13:25 Completed PROTIME WITH INR Stat Lab 02/24/20 13:25 Completed TROPONIN Q3H Lab 02/24/20 13:25 Completed TROPONIN Q3H Lab 02/24/20 16:30 Ordered TROPONIN Q3H Lab 02/24/20 19:30 Ordered TROPONIN Q3H Lab 02/24/20 22:30 Ordered TROPONIN Q3H Lab 02/25/20 01:30 Ordered UA W/RFX UR CULTURE Stat Lab 02/24/20 13:36 Completed Pulse Oximetry CONTINUOUS RT 02/24/20 15:31 Active Medication Summary Generic Name Dose Route Start Last Admin Trade Name Freq PRN Reason Stop Dose Admin Sodium Chloride 1,000 mls @ 100 mls/hr 02/24/20 15:30 Sodium Chloride 0.9% 1000 Ml IV 03/25/20 15:29 .Q10H JAMAL Ondansetron HCl 4 mg 02/24/20 15:30 Zofran 4 Mg/2 Ml Vial IV 03/25/20 15:29 Q12H PRN PRN NAUSEA/VOMITING Discontinued Medications Generic Name Dose Route Start Last Admin Trade Name Freq PRN Reason Stop Dose Admin Sodium Chloride 1,000 mls @ 999 mls/hr 02/24/20 13:25 02/24/20 15:29 Sodium Chloride 0.9% 1000 Ml IV 02/24/20 14:25 Infused .Q1H1M STA Infusion Sodium Chloride Confirm 02/24/20 13:33 Sodium Chloride 0.9% 1000 Ml Administered 02/24/20 13:34 Dose 1,000 mls @ ud .ROUTE .STK-MED ONE Lab/Rad Data: Laboratory Result Diagrams 02/24/20 13:25 02/24/20 14:00 Laboratory Results 02/24/20 02/24/20 02/24/20 Range/Units 14:00 13:36 13:35 WBC (4.0-10.5) K/mm3 RBC (4.1-5.4) M/mm3 Hgb (12.0-16.0) gm/dl Hct (35-47) % MCV (78-100) fl MCH (26-32) pg MCHC (32-36) g/dl RDW (11.5-14.0) % Plt Count (150-450) K/mm3 MPV (7.5-11.0) fl Gran % (36.0-66.0) % Eos # (Auto) (0-0.5) Absolute Lymphs (auto) (1.0-4.6) Absolute Monos (auto) (0.0-1.3) Lymphocytes % (24.0-44.0) % Monocytes % (0.0-12.0) % Eosinophils % (0.00-5.0) % Basophils % (0.0-0.4) % Absolute Granulocytes (1.4-6.9) Basophils # (0-0.4) PT (9.95-12.35) SECONDS INR (0.8-3.0) Sodium 137 (137-145) mmol/L Potassium 4.7 (3.5-5.1) mmol/L Chloride 103 (98-107) mmol/L Carbon Dioxide 26 (22-30) mmol/L Anion Gap 13.4 (5-15) MEQ/L BUN 26 H (7-17) mg/dL Creatinine 1.30 H (0.52-1.04) mg/dL Estimated GFR 43.0 ML/MIN Glucose 163 H (74-106) mg/dL Lactic Acid 3.1 H (0.4-2.0) Calcium 9.1 (8.4-10.2) mg/dL Magnesium (1.6-2.3) mg/dL Total Bilirubin 0.60 (0.2-1.3) mg/dL AST 39 H (14-36) U/L ALT 21 (0-35) U/L Alkaline Phosphatase 74 (38-126) U/L Troponin I (0.000-0.034) ng/mL Serum Total Protein 6.7 (6.3-8.2) g/dL Albumin 3.8 (3.5-5.0) g/dL Amylase (30-110) U/L Lipase (23-300) U/L Urine Color YELLOW (YELLOW) Urine Appearance CLEAR (CLEAR) Urine pH 6.0 (5-6) Ur Specific Vera 1.008 (1.005-1.025) Urine Protein NEGATIVE (Negative) Urine Ketones NEGATIVE (NEGATIVE) Urine Blood NEGATIVE (0-5) Kervin/ul Urine Nitrite NEGATIVE (NEGATIVE) Urine Bilirubin NEGATIVE (NEGATIVE) Urine Urobilinogen NEGATIVE (0-1) mg/dL Ur Leukocyte Esterase TRACE (NEGATIVE) Urine WBC (Auto) NONE (0-5) /HPF Urine RBC (Auto) NONE (0-2) /HPF U Hyaline Cast (Auto) 3-5 (0-2) /LPF U Epithel Cells (Auto) RARE (FEW) /HPF Urine Bacteria (Auto) NONE SEEN (NEGATIVE) /HPF Urine Culture Reflexed NO (NO) Urine Glucose NEGATIVE (NEGATIVE) mg/dL 02/24/20 02/24/20 02/24/20 Range/Units 13:25 13:25 13:25 WBC (4.0-10.5) K/mm3 RBC (4.1-5.4) M/mm3 Hgb (12.0-16.0) gm/dl Hct (35-47) % MCV (78-100) fl MCH (26-32) pg MCHC (32-36) g/dl RDW (11.5-14.0) % Plt Count (150-450) K/mm3 MPV (7.5-11.0) fl Gran % (36.0-66.0) % Eos # (Auto) (0-0.5) Absolute Lymphs (auto) (1.0-4.6) Absolute Monos (auto) (0.0-1.3) Lymphocytes % (24.0-44.0) % Monocytes % (0.0-12.0) % Eosinophils % (0.00-5.0) % Basophils % (0.0-0.4) % Absolute Granulocytes (1.4-6.9) Basophils # (0-0.4) PT 16.6 H (9.95-12.35) SECONDS INR 1.46 (0.8-3.0) Sodium (137-145) mmol/L Potassium (3.5-5.1) mmol/L Chloride (98-107) mmol/L Carbon Dioxide (22-30) mmol/L Anion Gap (5-15) MEQ/L BUN (7-17) mg/dL Creatinine (0.52-1.04) mg/dL Estimated GFR ML/MIN Glucose (74-106) mg/dL Lactic Acid (0.4-2.0) Calcium (8.4-10.2) mg/dL Magnesium 2.4 H (1.6-2.3) mg/dL Total Bilirubin (0.2-1.3) mg/dL AST (14-36) U/L ALT (0-35) U/L Alkaline Phosphatase (38-126) U/L Troponin I < 0.012 (0.000-0.034) ng/mL Serum Total Protein (6.3-8.2) g/dL Albumin (3.5-5.0) g/dL Amylase (30-110) U/L Lipase (23-300) U/L Urine Color (YELLOW) Urine Appearance (CLEAR) Urine pH (5-6) Ur Specific Vera (1.005-1.025) Urine Protein (Negative) Urine Ketones (NEGATIVE) Urine Blood (0-5) Kervin/ul Urine Nitrite (NEGATIVE) Urine Bilirubin (NEGATIVE) Urine Urobilinogen (0-1) mg/dL Ur Leukocyte Esterase (NEGATIVE) Urine WBC (Auto) (0-5) /HPF Urine RBC (Auto) (0-2) /HPF U Hyaline Cast (Auto) (0-2) /LPF U Epithel Cells (Auto) (FEW) /HPF Urine Bacteria (Auto) (NEGATIVE) /HPF Urine Culture Reflexed (NO) Urine Glucose (NEGATIVE) mg/dL 02/24/20 02/24/20 Range/Units 13:25 13:25 WBC 9.6 (4.0-10.5) K/mm3 RBC 3.87 L (4.1-5.4) M/mm3 Hgb 11.6 L (12.0-16.0) gm/dl Hct 37.0 (35-47) % MCV 95.6 (78-100) fl MCH 30.0 (26-32) pg MCHC 31.4 L (32-36) g/dl RDW 17.1 H (11.5-14.0) % Plt Count 313 (150-450) K/mm3 MPV 10.8 (7.5-11.0) fl Gran % 64.3 (36.0-66.0) % Eos # (Auto) 0.09 (0-0.5) Absolute Lymphs (auto) 2.51 (1.0-4.6) Absolute Monos (auto) 0.83 (0.0-1.3) Lymphocytes % 26.1 (24.0-44.0) % Monocytes % 8.6 (0.0-12.0) % Eosinophils % 0.9 (0.00-5.0) % Basophils % 0.1 (0.0-0.4) % Absolute Granulocytes 6.17 (1.4-6.9) Basophils # 0.01 (0-0.4) PT (9.95-12.35) SECONDS INR (0.8-3.0) Sodium (137-145) mmol/L Potassium (3.5-5.1) mmol/L Chloride (98-107) mmol/L Carbon Dioxide (22-30) mmol/L Anion Gap (5-15) MEQ/L BUN (7-17) mg/dL Creatinine (0.52-1.04) mg/dL Estimated GFR ML/MIN Glucose (74-106) mg/dL Lactic Acid (0.4-2.0) Calcium (8.4-10.2) mg/dL Magnesium (1.6-2.3) mg/dL Total Bilirubin (0.2-1.3) mg/dL AST (14-36) U/L ALT (0-35) U/L Alkaline Phosphatase (38-126) U/L Troponin I (0.000-0.034) ng/mL Serum Total Protein (6.3-8.2) g/dL Albumin (3.5-5.0) g/dL Amylase 38 (30-110) U/L Lipase 121 (23-300) U/L Urine Color (YELLOW) Urine Appearance (CLEAR) Urine pH (5-6) Ur Specific Vera (1.005-1.025) Urine Protein (Negative) Urine Ketones (NEGATIVE) Urine Blood (0-5) Kervin/ul Urine Nitrite (NEGATIVE) Urine Bilirubin (NEGATIVE) Urine Urobilinogen (0-1) mg/dL Ur Leukocyte Esterase (NEGATIVE) Urine WBC (Auto) (0-5) /HPF Urine RBC (Auto) (0-2) /HPF U Hyaline Cast (Auto) (0-2) /LPF U Epithel Cells (Auto) (FEW) /HPF Urine Bacteria (Auto) (NEGATIVE) /HPF Urine Culture Reflexed (NO) Urine Glucose (NEGATIVE) mg/dL - Progress Progress: improved (feeling better after IV hydration) Progress Note: 02/24/20 15:39 Patient comes in the emergency department having generalized fatigue with diarrhea and generalized weakness over the past 3 weeks, requiring 2 previous admissions to the hospital as well as being on oral vancomycin for a +6 C. difficile test. Patient was found to have renal insufficiency has her creatini ne increased on her lab work drawn by her primary care provider on 02/23/2020, with today's labs showing improvement but still 2 times above her baseline of her creatinine. Patient was hydrated in the emergency room with IV fluids and had a chest x-ray did not show any signs of heart failure or pneumonia on the chest x-ray. Patient also had a repeat CT abdomen pelvis that showed some mild new sigmoid diverticulitis but otherwise no other acute abnormalities. Patient was discussed with Dr. Solis, covering for Dr. Reyna and Dr. Solis accept the patient for continued IV hydration and starting on IV Flagyl to go with her oral vancomycin to treat her diverticulitis and C. difficile diarrhea. Discussed with : Cedrick (Discussed the patient with Dr. Solis, covering for patient's physician Dr. Reyna. Dr. Solis accepted the patient for observation to do gentle hydration as he knows the patient well to ensure that renal function and lactic acid correct without volume overload and the patient and potential starting IV) Will see patient in: hospital (observation) Counseled pt/family regarding: lab results, diagnosis, need for follow-up, rad results - Departure Departure Disposition: Extended Care Facility ([facility]) Clinical Impression: Acute renal insufficiency, Sigmoid diverticulitis, C. difficile diarrhea, Essential hypertension, Elevated lactic acid level, Generalized weakness Condition: Stable Critical Care Time: No Referrals: AMANDEEP REYNA [Primary Care Provider] -
[2020-02-24 13:43] LABS: Appearance CLEAR (CLEAR); Bacteria NONE SEEN /HPF (NEGATIVE); Bilirubin NEGATIVE (NEGATIVE); Blood NEGATIVE Ery/ul (0-5); Epithelial Cells RARE /HPF (FEW); Glucose NEGATIVE (NEGATIVE); Ketones NEGATIVE (NEGATIVE); Leukocyte Esterase TRACE (NEGATIVE); Nitrite NEGATIVE (NEGATIVE); Protein,Urine Dip NEGATIVE (Negative); Specific Gravity 1.008 (1.005-1.025); Urobilinogen NEGATIVE mg/dL (0-1)
[2020-02-24 13:46] LABS: Absolute Neutrophil Ct (ANC) 6.17 (1.4-6.9); BASOPHIL % 0.1 % (0.0-0.4); Basophil (Absolute #) 0.01 (0-0.4); Eosinophil % 0.9 % (0.00-5.0); Eosinophil (Absolute #) 0.09 (0-0.5); Hemoglobin 11.6 gm/dl (12.0-16.0); Lymphocyte (Absolute #) 2.51 (1.0-4.6); Lymphocytes % 26.1 % (24.0-44.0); Mean Cell Volume 95.6 fl (78-100); Mean Corpuscular Hgb Concent. 31.4 g/dl (32-36); Mean Platelet Volume 10.8 fl (7.5-11.0); Monocyte (Absolute #) 0.83 (0.0-1.3); Monocytes % 8.6 % (0.0-12.0); Neutrophil % 64.3 % (36.0-66.0); Platelet Count 313 K/mm3 (150-450); Red Blood Count 3.87 M/mm3 (4.1-5.4); Red Cell Distribution Width 17.1 % (11.5-14.0); White Blood Count 9.6 K/mm3 (4.0-10.5)
[2020-02-24 13:53] LABS: INR 1.46 (0.8-3.0); PROTIME 16.6 SECONDS (9.95-12.35)
--- NOTE | 2020-02-24 14:06 | XRAY ---
Indication: Nausea, vomiting, and diarrhea 3 weeks. C. difficile infection. Multiple contiguous axial images obtained through the abdomen and pelvis without contrast as ordered. Comparison: February 09, 2020. Lung bases again demonstrates minimal atelectasis/scarring without infiltrate or effusion. Heart is not enlarged. Noncontrasted stomach and bowel loops remain nonobstructed. Again scattered colonic diverticulosis with new mild distal descending and proximal sigmoid pericolonic stranding favoring diverticulitis. No free fluid/air. Again appendectomy and hysterectomy reported. Remaining liver, gallbladder, pancreas, spleen, adrenal glands, kidneys, ureters, and bladder appear unremarkable for noncontrast exam. Stable mild aortoiliac calcifications without AAA. Impression: Again colonic diverticulosis with new mild distal descending/proximal sigmoid diverticulitis. No complications.
--- NOTE | 2020-02-24 14:08 | XRAY ---
Indication: Weakness. Comparison: February 15, 2020. Portable chest demonstrates marked clearing of previous bilateral interstitial alveolar opacities with minimal right infrahilar residual. Minimal left upper lobe subsegmental atelectasis/scarring. Remaining heart and lungs unremarkable.
[2020-02-24 14:09] LABS: AMYLASE 38 U/L (30-110); LIPASE 121 U/L (23-300)
[2020-02-24 14:42] LABS: ALBUMIN 3.8 g/dL (3.5-5.0); ANION GAP 13.4 MEQ/L (5-15); BILIRUBIN,TOTAL 0.6 mg/dL (0.2-1.3); Calcium 9.1 mg/dL (8.4-10.2); Creatinine 1 1.3 mg/dL (0.52-1.04); Potassium 4.7 mmol/L (3.5-5.1); Total Protein 6.7 g/dL (6.3-8.2)
[2020-02-24] MEDS ORDERED: Zofran 4 MG/2 ML VIAL IV PRN (15:30)
[2020-02-24] MEDS ORDERED: NON-FORMULARY ITEM (Cyclobenzaprine Hcl [Flexeril] 5 MG) PO PRN (17:33)
[2020-02-24] MEDS ORDERED: Cyclobenzaprine 10 MG PO PRN (17:48)
[2020-02-24] MEDS: FLAGYL 500 MG IVPB 500 MG/100 ML BAG IV SCH ×2 (17:57→23:19)
[2020-02-24] MEDS: HUMALOG SQ SCH (17:57)
[2020-02-24] MEDS: VANCOMYCIN HCL CAPSULE PO SCH ×2 (18:11→23:03)
[2020-02-24] MEDS: TYLENOL 325 MG PO PRN ×2 (18:20→23:07)
[2020-02-24] MEDS: Zofran 4 MG/2 ML VIAL IV PRN (20:04)
[2020-02-24] MEDS: Sodium Chloride 0.9% 1000 ML 1,000 ML IV SCH (20:04)
[2020-02-24] MEDS: Ranexa 500 MG PO SCH (21:31)
[2020-02-24] MEDS: ZYLOPRIM 100 MG PO SCH (21:32)
[2020-02-24] MEDS: PRADAXA 75 MG PO SCH (21:32)
[2020-02-24] MEDS: Namenda 5 MG PO SCH (21:32)
[2020-02-24] MEDS: Zestril 5 MG PO SCH (21:32)
[2020-02-24] MEDS: Coreg 6.25 MG PO SCH (21:33)
[2020-02-24] MEDS: Lyrica 50MG PO SCH (21:34)
[2020-02-24] MEDS: Lantus Insulin SQ SCH (21:35)
[2020-02-24] MEDS ORDERED: VANCOMYCIN HCL 250 MG PO SCH (22:00)
[2020-02-24] MEDS ORDERED: RANOLAZINE 1000 MG PO SCH (22:00)
[2020-02-24] MEDS ORDERED: MEMANTINE HCL PO SCH (22:00)
[2020-02-24] MEDS ORDERED: NON-FORMULARY ITEM (Dabigatran Etexilate Mesylate [Pradaxa] 150 MG) PO SCH (22:00)
[2020-02-25] MEDS: TYLENOL 325 MG PO PRN ×3 (02:26→21:33)
[2020-02-25 02:40] LABS: Absolute Neutrophil Ct (ANC) 3.17 (1.4-6.9); BASOPHIL % 0.1 % (0.0-0.4); Basophil (Absolute #) 0.01 (0-0.4); Eosinophil % 1.6 % (0.00-5.0); Eosinophil (Absolute #) 0.11 (0-0.5); Hemoglobin 10.2 gm/dl (12.0-16.0); Lymphocyte (Absolute #) 2.86 (1.0-4.6); Lymphocytes % 41.4 % (24.0-44.0); Mean Cell Volume 96.4 fl (78-100); Mean Corpuscular Hemoglobin 30.7 pg (26-32); Mean Corpuscular Hgb Concent. 31.9 g/dl (32-36); Mean Platelet Volume 10.9 fl (7.5-11.0); Monocyte (Absolute #) 0.75 (0.0-1.3); Monocytes % 10.9 % (0.0-12.0); Platelet Count 268 K/mm3 (150-450); Red Blood Count 3.32 M/mm3 (4.1-5.4); Red Cell Distribution Width 17.5 % (11.5-14.0); White Blood Count 6.9 K/mm3 (4.0-10.5)
[2020-02-25 02:51] LABS: ALBUMIN 2.8 g/dL (3.5-5.0); ANION GAP 6.8 MEQ/L (5-15); BILIRUBIN,TOTAL 0.6 mg/dL (0.2-1.3); Calcium 8.4 mg/dL (8.4-10.2); Creatinine 1 1.11 mg/dL (0.52-1.04); EST GLOMERULAR FILTRATION RATE 51.6 ML/MIN; Potassium 4.8 mmol/L (3.5-5.1)
[2020-02-25] MEDS: Zofran 4 MG/2 ML VIAL IV PRN (03:14)
[2020-02-25] MEDS: FLAGYL 500 MG IVPB 500 MG/100 ML BAG IV SCH ×3 (06:06→17:44)
[2020-02-25] MEDS: Sodium Chloride 0.9% 1000 ML 1,000 ML IV SCH ×2 (07:26→18:43)
[2020-02-25] MEDS ORDERED: NON-FORMULARY ITEM (Insulin Lispro 14 UNIT) SQ SCH (08:00)
[2020-02-25] MEDS: HUMALOG SQ SCH ×3 (08:16→17:49)
--- NOTE | 2020-02-25 08:21 | PCM.HP ---
History of Present Illness - Chief Complaint Chief Complaint: ACUTE RENAL INSUFFICIENCY,SIGMOID DIVERTICULITIS History of Present Illness: is a 69 year old female pt of mine from [facility] with afib, renal insufficiency, DM, gout, ALFRED, OA, asthma, and recent C. difficile infection who was admitted through ER last night with acute renal injury, vomiting, weakness and continued diarrhea due to C. diff and diverticulitis. Pt has had a total of 3, now, hospital admissions over the past few weeks, initially with small bowel obstruction, then found to have C. difficile infection and has been on po vancomycin. Pt is feeling weak this morning and has LLQ and RLQ pain, a little better with Tylenol (does not want anything stronger). Had cut her diet back to bland/full liquids at home. Vomited x 1 last night. Had some "mushy" stools last night. - Review of Systems Constitutional: Fatigue, Weakness Abdominal/Gastrointestinal: Abdominal Pain, Vomiting, Diarrhea Psychological: Anxiety, Depression All Other Systems: Reviewed and Negative Medications & Allergies Home Medications: Home Medication List Allopurinol 100 mg [Zyloprim 100 mg] 100 mg PO BID 11/18/18 [History Confirmed 02/24/20] Amiodarone HCl 200 mg [Cordarone 200 MG] 200 mg PO DAILY 11/18/18 [History Confirmed 02/24/20] Carvedilol 12.5 mg [Coreg 12.5 mg] 6.25 mg PO BID 11/18/18 [History Confirmed 02/24/20] Dabigatran Etexilate Mesylate [Pradaxa] 150 mg PO BID 11/18/18 [History Confirmed 02/24/20] Isosorbide Mononitrate 30 mg [Imdur 30 MG] 30 mg PO DAILY 11/18/18 [History Confirmed 02/24/20] PANTOPRAZOLE 40 mg Tablet [Protonix 40MG Tablet] 40 mg PO DAILY 11/18/18 [History Confirmed 02/24/20] Ranolazine [Ranexa] 1,000 mg PO BID 11/18/18 [History Confirmed 02/24/20] Sertraline HCl 50 mg [Zoloft 50 mg Tablet] 50 mg PO DAILY 11/18/18 [History Confirmed 02/24/20] Potassium Chloride 10 Meq Tab* [Klor Con 10 MEQ] 20 meq PO BID 01/02/19 [History Confirmed 02/24/20] Insulin Glargine [Lantus Insulin] 26 unit SQ QHS 03/23/19 [History Confirmed 02/24/20] Insulin Lispro [Humalog] 14 unit SQ BREAKFAST 03/23/19 [History Confirmed 02/24/20] Pregabalin 50 mg [Lyrica 50MG] 50 mg PO BID 03/23/19 [History Confirmed 02/24/20] Insulin Lispro [Humalog] 10 unit SQ DINNER 11/03/19 [History Confirmed 02/24/20] Insulin Lispro [Humalog] 12 unit SQ LUNCH 11/03/19 [History Confirmed 02/24/20] Bumetanide 4 mg PO DAILY 02/09/20 [History Confirmed 02/24/20] Donepezil HCl 10 mg [Aricept 10 MG] 1 tab PO DAILY 02/09/20 [History Confirmed 02/24/20] Memantine HCl 10 tab PO BID 02/09/20 [History Confirmed 02/24/20] Acetaminophen 325 mg [Tylenol 325 mg] 650 mg PO Q4HPRN PRN 02/24/20 [History Confirmed 02/24/20] Cyclobenzaprine HCl [Flexeril] 5 mg PO TID PRN 02/24/20 [History Confirmed 02/24/20] HydrALAzine HCL 25 MG TAB [Apresoline 25 MG TABLET] 25 mg PO QIDPRN PRN 02/24/20 [History Confirmed 02/24/20] Lisinopril 5 mg [Zestril 5 MG] 5 mg PO BID 02/24/20 [History Confirmed 02/24/20] Ondansetron ODT 4 MG [Zofran Odt 4 mg] 4 mg PO Q6H PRN PRN 02/24/20 [History Confirmed 02/24/20] Vancomycin HCl [Vancocin HCl] 250 mg PO QID 02/24/20 [History Confirmed 02/24/20] Allergies/Adverse Reactions: Allergies Allergy/AdvReac Type Severity Reaction Status Date / Time morphine Allergy Severe anaphylaxis Verified 02/24/20 13:27 adhesive Allergy Mild Blisters Verified 02/24/20 13:27 aspirin Allergy Difficulty Verified 02/24/20 13:27 Breathing Penicillins Allergy Rash Verified 02/24/20 13:27 povidone-iodine Allergy BLISTERES Verified 02/24/20 13:27 [From Betadine] soap [From Betadine] Allergy Blisters Verified 02/24/20 13:27 - Past Medical History Past Medical History: Yes Neurological History: Peripheral Neuropathy ENT History: No Pertinent History Cardiac History: Angina, Arrhythmia, Congestive Heart Failure, High Cholesterol, Hypertension Respiratory History: COPD, Pneumonia Endocrine Medical History: Diabetes Type II Musculoskelatal History: Arthritis, Fractures GI Medical History: Diverticulitis, Other History: Other Pyscho-Social History: No Pertinent History Reproductive Disorders: No Pertinent History Comment: Impaired kidney function, HYPOKALEMIA, LEFT ANKLE FRACTURE 05/07/19, C DIFF - Female History Hx Last Menstrual Period: psot Are you now?: No - Past Surgical History Past Surgical History: Yes Neuro Surgical History: No Pertinent History Cardiac History: No Pertinent History Respiratory Surgery: No Pertinent History GI Surgical History: Appendectomy Genitourinary Surgical Hx: No Pertinent History Musculskeletal Surgical Hx: Orthopedic Surgery Female Surgical History: Hysterectomy Other Surgical History: Multiple hand surgeries, - Social History Smoking Status: Never smoker How long have you smoked: 1 year Exposure to second hand smoke: No Alcohol: None Drug Use: none Significant Family History: diabetes, hypertension - Physical Exam Vital Signs: Vital Signs - 24 hr Temp Pulse Resp BP Pulse Ox 02/25/20 07:52 98 02/25/20 06:26 97.7 F 56 L 18 123/57 98 02/25/20 03:58 98.8 F 57 L 18 114/57 94 L 02/24/20 23:48 98.0 F 60 19 113/54 98 02/24/20 23:22 18 02/24/20 22:19 95 02/24/20 20:31 97.3 F 57 L 17 127/60 94 L 02/24/20 20:00 22 02/24/20 17:00 97.3 F 54 L 18 137/62 95 02/24/20 16:44 97.3 F 54 L 18 137/62 95 02/24/20 16:41 97.3 F 54 L 18 137/6 95 02/24/20 16:07 97 02/24/20 16:06 56 L 18 139/52 97 02/24/20 15:03 56 L 18 142/52 97 02/24/20 13:20 97 F 62 24 142/47 97 General Appearance: no apparent distress, alert, obese Neurologic Exam: oriented x 3, cooperative Eye Exam: eyes nml inspection Ears, Nose, Throat Exam: moist mucous membranes Neck Exam: normal inspection, non-tender, No lymphadenopathy Respiratory Exam: normal breath sounds, lungs clear, No crackles/rales, No rhonchi, No wheezing Cardiovascular Exam: regular rate/rhythm, normal heart sounds, No murmur Gastrointestinal/Abdomen Exam: soft, tenderness (LLQ and LUQ), No normal bowel sounds (hypoactive but present), No distention, No mass, No guarding, No rebound Extremity Exam: swelling (trace pretibial edema), tenderness (pretibial, bilat) Skin Exam: normal color, warm, dry, No rash Results - Labs Lab/Micro Results: Lab Results-Last 24 Hours 02/24/20 02/24/20 02/24/20 Range/Units 13:25 13:25 13:25 WBC 9.6 (4.0-10.5) K/mm3 RBC 3.87 L (4.1-5.4) M/mm3 Hgb 11.6 L (12.0-16.0) gm/dl Hct 37.0 (35-47) % MCV 95.6 (78-100) fl MCH 30.0 (26-32) pg MCHC 31.4 L (32-36) g/dl RDW 17.1 H (11.5-14.0) % Plt Count 313 (150-450) K/mm3 MPV 10.8 (7.5-11.0) fl Gran % 64.3 (36.0-66.0) % Eos # (Auto) 0.09 (0-0.5) Absolute Lymphs (auto) 2.51 (1.0-4.6) Absolute Monos (auto) 0.83 (0.0-1.3) Lymphocytes % 26.1 (24.0-44.0) % Monocytes % 8.6 (0.0-12.0) % Eosinophils % 0.9 (0.00-5.0) % Basophils % 0.1 (0.0-0.4) % Absolute Granulocytes 6.17 (1.4-6.9) Basophils # 0.01 (0-0.4) PT 16.6 H (9.95-12.35) SECONDS INR 1.46 (0.8-3.0) Sodium (137-145) mmol/L Potassium (3.5-5.1) mmol/L Chloride (98-107) mmol/L Carbon Dioxide (22-30) mmol/L Anion Gap (5-15) MEQ/L BUN (7-17) mg/dL Creatinine (0.52-1.04) mg/dL Estimated GFR ML/MIN Glucose (74-106) mg/dL POC Glucometer (74 to 106) mg/dL Hemoglobin A1c (4.5-6.0) % Lactic Acid (0.4-2.0) Calcium (8.4-10.2) mg/dL Magnesium (1.6-2.3) mg/dL Total Bilirubin (0.2-1.3) mg/dL AST (14-36) U/L ALT (0-35) U/L Alkaline Phosphatase (38-126) U/L Troponin I (0.000-0.034) ng/mL Serum Total Protein (6.3-8.2) g/dL Albumin (3.5-5.0) g/dL Amylase 38 (30-110) U/L Lipase 121 (23-300) U/L Urine Color (YELLOW) Urine Appearance (CLEAR) Urine pH (5-6) Ur Specific Schlater (1.005-1.025) Urine Protein (Negative) Urine Ketones (NEGATIVE) Urine Blood (0-5) Kervin/ul Urine Nitrite (NEGATIVE) Urine Bilirubin (NEGATIVE) Urine Urobilinogen (0-1) mg/dL Ur Leukocyte Esterase (NEGATIVE) Urine WBC (Auto) (0-5) /HPF Urine RBC (Auto) (0-2) /HPF U Hyaline Cast (Auto) (0-2) /LPF U Epithel Cells (Auto) (FEW) /HPF Urine Bacteria (Auto) (NEGATIVE) /HPF Urine Culture Reflexed (NO) Urine Glucose (NEGATIVE) mg/dL 02/24/20 02/24/20 02/24/20 Range/Units 13:25 13:25 13:35 WBC (4.0-10.5) K/mm3 RBC (4.1-5.4) M/mm3 Hgb (12.0-16.0) gm/dl Hct (35-47) % MCV (78-100) fl MCH (26-32) pg MCHC (32-36) g/dl RDW (11.5-14.0) % Plt Count (150-450) K/mm3 MPV (7.5-11.0) fl Gran % (36.0-66.0) % Eos # (Auto) (0-0.5) Absolute Lymphs (auto) (1.0-4.6) Absolute Monos (auto) (0.0-1.3) Lymphocytes % (24.0-44.0) % Monocytes % (0.0-12.0) % Eosinophils % (0.00-5.0) % Basophils % (0.0-0.4) % Absolute Granulocytes (1.4-6.9) Basophils # (0-0.4) PT (9.95-12.35) SECONDS INR (0.8-3.0) Sodium (137-145) mmol/L Potassium (3.5-5.1) mmol/L Chloride (98-107) mmol/L Carbon Dioxide (22-30) mmol/L Anion Gap (5-15) MEQ/L BUN (7-17) mg/dL Creatinine (0.52-1.04) mg/dL Estimated GFR ML/MIN Glucose (74-106) mg/dL POC Glucometer (74 to 106) mg/dL Hemoglobin A1c (4.5-6.0) % Lactic Acid 3.1 H (0.4-2.0) Calcium (8.4-10.2) mg/dL Magnesium 2.4 H (1.6-2.3) mg/dL Total Bilirubin (0.2-1.3) mg/dL AST (14-36) U/L ALT (0-35) U/L Alkaline Phosphatase (38-126) U/L Troponin I < 0.012 (0.000-0.034) ng/mL Serum Total Protein (6.3-8.2) g/dL Albumin (3.5-5.0) g/dL Amylase (30-110) U/L Lipase (23-300) U/L Urine Color (YELLOW) Urine Appearance (CLEAR) Urine pH (5-6) Ur Specific Schlater (1.005-1.025) Urine Protein (Negative) Urine Ketones (NEGATIVE) Urine Blood (0-5) Kervin/ul Urine Nitrite (NEGATIVE) Urine Bilirubin (NEGATIVE) Urine Urobilinogen (0-1) mg/dL Ur Leukocyte Esterase (NEGATIVE) Urine WBC (Auto) (0-5) /HPF Urine RBC (Auto) (0-2) /HPF U Hyaline Cast (Auto) (0-2) /LPF U Epithel Cells (Auto) (FEW) /HPF Urine Bacteria (Auto) (NEGATIVE) /HPF Urine Culture Reflexed (NO) Urine Glucose (NEGATIVE) mg/dL 02/24/20 02/24/20 02/24/20 Range/Units 13:36 14:00 15:39 WBC (4.0-10.5) K/mm3 RBC (4.1-5.4) M/mm3 Hgb (12.0-16.0) gm/dl Hct (35-47) % MCV (78-100) fl MCH (26-32) pg MCHC (32-36) g/dl RDW (11.5-14.0) % Plt Count (150-450) K/mm3 MPV (7.5-11.0) fl Gran % (36.0-66.0) % Eos # (Auto) (0-0.5) Absolute Lymphs (auto) (1.0-4.6) Absolute Monos (auto) (0.0-1.3) Lymphocytes % (24.0-44.0) % Monocytes % (0.0-12.0) % Eosinophils % (0.00-5.0) % Basophils % (0.0-0.4) % Absolute Granulocytes (1.4-6.9) Basophils # (0-0.4) PT (9.95-12.35) SECONDS INR (0.8-3.0) Sodium 137 (137-145) mmol/L Potassium 4.7 (3.5-5.1) mmol/L Chloride 103 (98-107) mmol/L Carbon Dioxide 26 (22-30) mmol/L Anion Gap 13.4 (5-15) MEQ/L BUN 26 H (7-17) mg/dL Creatinine 1.30 H (0.52-1.04) mg/dL Estimated GFR 43.0 ML/MIN Glucose 163 H (74-106) mg/dL POC Glucometer (74 to 106) mg/dL Hemoglobin A1c (4.5-6.0) % Lactic Acid 1.1 (0.4-2.0) Calcium 9.1 (8.4-10.2) mg/dL Magnesium (1.6-2.3) mg/dL Total Bilirubin 0.60 (0.2-1.3) mg/dL AST 39 H (14-36) U/L ALT 21 (0-35) U/L Alkaline Phosphatase 74 (38-126) U/L Troponin I (0.000-0.034) ng/mL Serum Total Protein 6.7 (6.3-8.2) g/dL Albumin 3.8 (3.5-5.0) g/dL Amylase (30-110) U/L Lipase (23-300) U/L Urine Color YELLOW (YELLOW) Urine Appearance CLEAR (CLEAR) Urine pH 6.0 (5-6) Ur Specific Schlater 1.008 (1.005-1.025) Urine Protein NEGATIVE (Negative) Urine Ketones NEGATIVE (NEGATIVE) Urine Blood NEGATIVE (0-5) Kervin/ul Urine Nitrite NEGATIVE (NEGATIVE) Urine Bilirubin NEGATIVE (NEGATIVE) Urine Urobilinogen NEGATIVE (0-1) mg/dL Ur Leukocyte Esterase TRACE (NEGATIVE) Urine WBC (Auto) NONE (0-5) /HPF Urine RBC (Auto) NONE (0-2) /HPF U Hyaline Cast (Auto) 3-5 (0-2) /LPF U Epithel Cells (Auto) RARE (FEW) /HPF Urine Bacteria (Auto) NONE SEEN (NEGATIVE) /HPF Urine Culture Reflexed NO (NO) Urine Glucose NEGATIVE (NEGATIVE) mg/dL 02/24/20 02/24/20 02/24/20 Range/Units 16:54 17:00 19:55 WBC (4.0-10.5) K/mm3 RBC (4.1-5.4) M/mm3 Hgb (12.0-16.0) gm/dl Hct (35-47) % MCV (78-100) fl MCH (26-32) pg MCHC (32-36) g/dl RDW (11.5-14.0) % Plt Count (150-450) K/mm3 MPV (7.5-11.0) fl Gran % (36.0-66.0) % Eos # (Auto) (0-0.5) Absolute Lymphs (auto) (1.0-4.6) Absolute Monos (auto) (0.0-1.3) Lymphocytes % (24.0-44.0) % Monocytes % (0.0-12.0) % Eosinophils % (0.00-5.0) % Basophils % (0.0-0.4) % Absolute Granulocytes (1.4-6.9) Basophils # (0-0.4) PT (9.95-12.35) SECONDS INR (0.8-3.0) Sodium (137-145) mmol/L Potassium (3.5-5.1) mmol/L Chloride (98-107) mmol/L Carbon Dioxide (22-30) mmol/L Anion Gap (5-15) MEQ/L BUN (7-17) mg/dL Creatinine (0.52-1.04) mg/dL Estimated GFR ML/MIN Glucose (74-106) mg/dL POC Glucometer 101 (74 to 106) mg/dL Hemoglobin A1c (4.5-6.0) % Lactic Acid (0.4-2.0) Calcium (8.4-10.2) mg/dL Magnesium (1.6-2.3) mg/dL Total Bilirubin (0.2-1.3) mg/dL AST (14-36) U/L ALT (0-35) U/L Alkaline Phosphatase (38-126) U/L Troponin I < 0.012 < 0.012 (0.000-0.034) ng/mL Serum Total Protein (6.3-8.2) g/dL Albumin (3.5-5.0) g/dL Amylase (30-110) U/L Lipase (23-300) U/L Urine Color (YELLOW) Urine Appearance (CLEAR) Urine pH (5-6) Ur Specific Schlater (1.005-1.025) Urine Protein (Negative) Urine Ketones (NEGATIVE) Urine Blood (0-5) Kervin/ul Urine Nitrite (NEGATIVE) Urine Bilirubin (NEGATIVE) Urine Urobilinogen (0-1) mg/dL Ur Leukocyte Esterase (NEGATIVE) Urine WBC (Auto) (0-5) /HPF Urine RBC (Auto) (0-2) /HPF U Hyaline Cast (Auto) (0-2) /LPF U Epithel Cells (Auto) (FEW) /HPF Urine Bacteria (Auto) (NEGATIVE) /HPF Urine Culture Reflexed (NO) Urine Glucose (NEGATIVE) mg/dL 02/24/20 02/24/20 02/24/20 Range/Units 19:55 20:37 22:09 WBC (4.0-10.5) K/mm3 RBC (4.1-5.4) M/mm3 Hgb (12.0-16.0) gm/dl Hct (35-47) % MCV (78-100) fl MCH (26-32) pg MCHC (32-36) g/dl RDW (11.5-14.0) % Plt Count (150-450) K/mm3 MPV (7.5-11.0) fl Gran % (36.0-66.0) % Eos # (Auto) (0-0.5) Absolute Lymphs (auto) (1.0-4.6) Absolute Monos (auto) (0.0-1.3) Lymphocytes % (24.0-44.0) % Monocytes % (0.0-12.0) % Eosinophils % (0.00-5.0) % Basophils % (0.0-0.4) % Absolute Granulocytes (1.4-6.9) Basophils # (0-0.4) PT (9.95-12.35) SECONDS INR (0.8-3.0) Sodium (137-145) mmol/L Potassium (3.5-5.1) mmol/L Chloride (98-107) mmol/L Carbon Dioxide (22-30) mmol/L Anion Gap (5-15) MEQ/L BUN (7-17) mg/dL Creatinine (0.52-1.04) mg/dL Estimated GFR ML/MIN Glucose (74-106) mg/dL POC Glucometer 173 H (74 to 106) mg/dL Hemoglobin A1c 6.43 H (4.5-6.0) % Lactic Acid (0.4-2.0) Calcium (8.4-10.2) mg/dL Magnesium (1.6-2.3) mg/dL Total Bilirubin (0.2-1.3) mg/dL AST (14-36) U/L ALT (0-35) U/L Alkaline Phosphatase (38-126) U/L Troponin I < 0.012 (0.000-0.034) ng/mL Serum Total Protein (6.3-8.2) g/dL Albumin (3.5-5.0) g/dL Amylase (30-110) U/L Lipase (23-300) U/L Urine Color (YELLOW) Urine Appearance (CLEAR) Urine pH (5-6) Ur Specific Schlater (1.005-1.025) Urine Protein (Negative) Urine Ketones (NEGATIVE) Urine Blood (0-5) Kervin/ul Urine Nitrite (NEGATIVE) Urine Bilirubin (NEGATIVE) Urine Urobilinogen (0-1) mg/dL Ur Leukocyte Esterase (NEGATIVE) Urine WBC (Auto) (0-5) /HPF Urine RBC (Auto) (0-2) /HPF U Hyaline Cast (Auto) (0-2) /LPF U Epithel Cells (Auto) (FEW) /HPF Urine Bacteria (Auto) (NEGATIVE) /HPF Urine Culture Reflexed (NO) Urine Glucose (NEGATIVE) mg/dL 02/25/20 02/25/20 02/25/20 Range/Units 02:00 02:00 02:00 WBC 6.9 (4.0-10.5) K/mm3 RBC 3.32 L (4.1-5.4) M/mm3 Hgb 10.2 L (12.0-16.0) gm/dl Hct 32.0 L (35-47) % MCV 96.4 (78-100) fl MCH 30.7 (26-32) pg MCHC 31.9 L (32-36) g/dl RDW 17.5 H (11.5-14.0) % Plt Count 268 (150-450) K/mm3 MPV 10.9 (7.5-11.0) fl Gran % 46.0 (36.0-66.0) % Eos # (Auto) 0.11 (0-0.5) Absolute Lymphs (auto) 2.86 (1.0-4.6) Absolute Monos (auto) 0.75 (0.0-1.3) Lymphocytes % 41.4 (24.0-44.0) % Monocytes % 10.9 (0.0-12.0) % Eosinophils % 1.6 (0.00-5.0) % Basophils % 0.1 (0.0-0.4) % Absolute Granulocytes 3.17 (1.4-6.9) Basophils # 0.01 (0-0.4) PT (9.95-12.35) SECONDS INR (0.8-3.0) Sodium 136 L (137-145) mmol/L Potassium 4.8 (3.5-5.1) mmol/L Chloride 105 (98-107) mmol/L Carbon Dioxide 28 (22-30) mmol/L Anion Gap 6.8 (5-15) MEQ/L BUN 23 H (7-17) mg/dL Creatinine 1.11 H (0.52-1.04) mg/dL Estimated GFR 51.6 ML/MIN Glucose 141 H (74-106) mg/dL POC Glucometer (74 to 106) mg/dL Hemoglobin A1c (4.5-6.0) % Lactic Acid (0.4-2.0) Calcium 8.4 (8.4-10.2) mg/dL Magnesium (1.6-2.3) mg/dL Total Bilirubin 0.60 (0.2-1.3) mg/dL AST 21 (14-36) U/L ALT 17 (0-35) U/L Alkaline Phosphatase 62 (38-126) U/L Troponin I < 0.012 (0.000-0.034) ng/mL Serum Total Protein 5.0 L (6.3-8.2) g/dL Albumin 2.8 L (3.5-5.0) g/dL Amylase (30-110) U/L Lipase (23-300) U/L Urine Color (YELLOW) Urine Appearance (CLEAR) Urine pH (5-6) Ur Specific Schlater (1.005-1.025) Urine Protein (Negative) Urine Ketones (NEGATIVE) Urine Blood (0-5) Kervin/ul Urine Nitrite (NEGATIVE) Urine Bilirubin (NEGATIVE) Urine Urobilinogen (0-1) mg/dL Ur Leukocyte Esterase (NEGATIVE) Urine WBC (Auto) (0-5) /HPF Urine RBC (Auto) (0-2) /HPF U Hyaline Cast (Auto) (0-2) /LPF U Epithel Cells (Auto) (FEW) /HPF Urine Bacteria (Auto) (NEGATIVE) /HPF Urine Culture Reflexed (NO) Urine Glucose (NEGATIVE) mg/dL 02/25/20 Range/Units 06:22 WBC (4.0-10.5) K/mm3 RBC (4.1-5.4) M/mm3 Hgb (12.0-16.0) gm/dl Hct (35-47) % MCV (78-100) fl MCH (26-32) pg MCHC (32-36) g/dl RDW (11.5-14.0) % Plt Count (150-450) K/mm3 MPV (7.5-11.0) fl Gran % (36.0-66.0) % Eos # (Auto) (0-0.5) Absolute Lymphs (auto) (1.0-4.6) Absolute Monos (auto) (0.0-1.3) Lymphocytes % (24.0-44.0) % Monocytes % (0.0-12.0) % Eosinophils % (0.00-5.0) % Basophils % (0.0-0.4) % Absolute Granulocytes (1.4-6.9) Basophils # (0-0.4) PT (9.95-12.35) SECONDS INR (0.8-3.0) Sodium (137-145) mmol/L Potassium (3.5-5.1) mmol/L Chloride (98-107) mmol/L Carbon Dioxide (22-30) mmol/L Anion Gap (5-15) MEQ/L BUN (7-17) mg/dL Creatinine (0.52-1.04) mg/dL Estimated GFR ML/MIN Glucose (74-106) mg/dL POC Glucometer 147 H (74 to 106) mg/dL Hemoglobin A1c (4.5-6.0) % Lactic Acid (0.4-2.0) Calcium (8.4-10.2) mg/dL Magnesium (1.6-2.3) mg/dL Total Bilirubin (0.2-1.3) mg/dL AST (14-36) U/L ALT (0-35) U/L Alkaline Phosphatase (38-126) U/L Troponin I (0.000-0.034) ng/mL Serum Total Protein (6.3-8.2) g/dL Albumin (3.5-5.0) g/dL Amylase (30-110) U/L Lipase (23-300) U/L Urine Color (YELLOW) Urine Appearance (CLEAR) Urine pH (5-6) Ur Specific Schlater (1.005-1.025) Urine Protein (Negative) Urine Ketones (NEGATIVE) Urine Blood (0-5) Kervin/ul Urine Nitrite (NEGATIVE) Urine Bilirubin (NEGATIVE) Urine Urobilinogen (0-1) mg/dL Ur Leukocyte Esterase (NEGATIVE) Urine WBC (Auto) (0-5) /HPF Urine RBC (Auto) (0-2) /HPF U Hyaline Cast (Auto) (0-2) /LPF U Epithel Cells (Auto) (FEW) /HPF Urine Bacteria (Auto) (NEGATIVE) /HPF Urine Culture Reflexed (NO) Urine Glucose (NEGATIVE) mg/dL - Radiology Impressions Radiology Exams & Impressions: Radiology Procedures Category Date Time Status ABDOMEN AND PELVIS W/0 CONTRAS [CT] Stat Exams 02/24/20 13:26 Completed CHEST 1 VIEW (PORTABLE) Stat Exams 02/24/20 13:26 Completed - Other Procedures and Tests Respiratory Therapy 02/24/20 17:25 Oxygen NASAL CANNULA 3 lpm Assessment/Plan (1) Acute renal insufficiency Current Visit: Yes Status: Acute Assessment & Plan: Much improved today. Continue IV fluids. Recheck labs tomorrow. Code(s): N28.9 - DISORDER OF KIDNEY AND URETER, UNSPECIFIED (2) C. difficile diarrhea Current Visit: Yes Status: Acute Assessment & Plan: Was on a vancomycin taper; back to QID dosing now. She did report some mushy stools which is an improvement over several days ago when she was having watery stools. Code(s): A04.72 - ENTEROCOLITIS D/T CLOSTRIDIUM DIFFICILE, NOT SPCF RECUR (3) Sigmoid diverticulitis Current Visit: Yes Status: Acute Assessment & Plan: Has hx of same. Would like to f/u with Dr. Morales outpatient after her discharge; he is scheduling out until April so we should go ahead and make that appt. Code(s): K57.32 - DVTRCLI OF LG INT W/O PERFORATION OR ABSCESS W/O BLEEDING (4) Essential hypertension Current Visit: Yes Status: Chronic Code(s): I10 - ESSENTIAL (PRIMARY) HYPERTENSION (5) Weakness Current Visit: Yes Status: Acute Assessment & Plan: Would really benefit from therapy Code(s): R53.1 - WEAKNESS (6) Anxiety Current Visit: No Status: Chronic Code(s): F41.9 - ANXIETY DISORDER, UNSPECIFIED (7) CKD (chronic kidney disease) Current Visit: No Status: Chronic Qualifiers: Chronic kidney disease stage: stage 3 (moderate) Assessment & Plan: Saw Dr. Thorne about a year ago; needs to f/u with him outpatient as well. Code(s): N18.9 - CHRONIC KIDNEY DISEASE, UNSPECIFIED (8) Diabetes mellitus Current Visit: No Status: Chronic Qualifiers: Diabetes mellitus type: type 2 Diabetes mellitus residential insulin use: with residential use Diabetes mellitus complication status: with kidney complications Diabetes mellitus complication detail: with chronic kidney disease Chronic kidney disease stage: stage 1 Qualified Code(s): E11.22 - Type 2 diabetes mellitus with diabetic chronic kidney disease; N18.1 - Chronic kidney disease, stage 1; Z79.4 - termite helper (current) use of insulin Code(s): E11.9 - TYPE 2 DIABETES MELLITUS WITHOUT COMPLICATIONS (9) Paroxysmal atrial fibrillation Current Visit: No Status: Chronic Code(s): I48.0 - PAROXYSMAL ATRIAL FIBRILLATION (10) Hypokalemia Current Visit: No Status: Chronic Assessment & Plan: Her potassium po has been ending up in her stools, per pt. K+ nl this morning. May not be an issue when her stools normalize. Code(s): E87.6 - HYPOKALEMIA
[2020-02-25] MEDS: Namenda 5 MG PO SCH ×2 (08:57→21:32)
[2020-02-25] MEDS: Lyrica 50MG PO SCH ×2 (08:57→21:32)
[2020-02-25] MEDS: PRADAXA 75 MG PO SCH ×2 (08:57→21:32)
[2020-02-25] MEDS: Ranexa 500 MG PO SCH ×2 (08:57→21:32)
[2020-02-25] MEDS: VANCOMYCIN HCL CAPSULE PO SCH ×4 (08:58→21:33)
[2020-02-25] MEDS: Protonix 40MG Tablet PO SCH (08:58)
[2020-02-25] MEDS: Zestril 5 MG PO SCH ×2 (08:58→21:33)
[2020-02-25] MEDS: Coreg 6.25 MG PO SCH ×2 (08:58→21:31)
[2020-02-25] MEDS: ZYLOPRIM 100 MG PO SCH ×2 (08:58→21:33)
[2020-02-25] MEDS: Aricept 10 MG PO SCH (08:58)
[2020-02-25] MEDS: Imdur 30 MG PO SCH (08:58)
[2020-02-25] MEDS: ZOLOFT 50 MG TABLET PO SCH (08:58)
[2020-02-25] MEDS: Cordarone 200 MG PO SCH (08:58)
[2020-02-25] MEDS ORDERED: INSULIN LISPRO 12 UNIT SQ SCH (12:00)
[2020-02-25] MEDS ORDERED: NON-FORMULARY ITEM (Insulin Lispro 10 UNIT) SQ SCH (17:00)
[2020-02-25] MEDS: Lantus Insulin SQ SCH (21:32)
[2020-02-25] MEDS: BENADRYL 25 MG CAPSULE PO PRN (21:33)
[2020-02-26] MEDS: FLAGYL 500 MG IVPB 500 MG/100 ML BAG IV SCH ×5 (00:07→23:55)
[2020-02-26] MEDS: Sodium Chloride 0.9% 1000 ML 1,000 ML IV SCH ×2 (05:46→15:04)
--- NOTE | 2020-02-26 07:36 | PCM.NOTE ---
Date and Time: 02/26/20734 Subjective Assessment: doing ok. tolerating diet ok. still c/o abdominal pain and weakness - Review of Systems Constitutional: Weakness, No Fever, No Chills Eyes: No Symptoms Ears, Nose, & Throat: No Symptoms Respiratory: No Cough, No Short Of Breath Cardiac: No Chest Pain, No Edema, No Syncope Abdominal/Gastrointestinal: Abdominal Pain, No Nausea, No Vomiting, No Diarrhea Genitourinary Symptoms: No Dysuria Musculoskeletal: No Back Pain, No Neck Pain Skin: No Rash Neurological: No Dizziness, No Focal Weakness, No Sensory Changes Psychological: No Symptoms Endocrine: No Symptoms Hematologic/Lymphatic: No Symptoms Immunological/Allergic: No Symptoms Objective Exam General Appearance: no apparent distress, alert Neurologic Exam: alert, oriented x 3, cooperative, normal mood/affect, nml cerebellar function, sensation nml, No motor deficits Skin Exam: normal color, warm, dry Eye Exam: PERRL, EOMI, eyes nml inspection Ears, Nose, Throat Exam: normal ENT inspection, pharynx normal, moist mucous membranes Neck Exam: normal inspection, non-tender, supple, full range of motion Respiratory Exam: normal breath sounds, lungs clear, No respiratory distress Cardiovascular Exam: regular rate/rhythm, normal heart sounds Gastrointestinal/Abdomen Exam: soft, tenderness, No mass Extremity Exam: normal inspection, normal range of motion Back Exam: normal inspection, normal range of motion, No CVA tenderness, No vertebral tenderness Pelvic Exam: deferred Rectal Exam: deferred OBJECTIVE DATA Vital Signs: Vital Signs - 24 hr Temp Pulse Resp BP Pulse Ox 02/26/20 04:00 97.5 F 56 L 16 141/60 91 L 02/26/20 00:00 98.6 F 55 L 16 119/57 95 02/25/20 20:00 98.4 F 53 L 16 131/54 100 02/25/20 16:00 98.2 F 54 L 18 134/84 98 02/25/20 12:00 98.0 F 60 18 155/60 97 02/25/20 07:52 98 Oxygen-Last 24 hours Oxygen Flowrate (L/min)-RT 3 Pain Assessment - Last Documented Pain Intensity 7 Pain Scale Used FLACC Intake and Output: Intake & Output 02/23/20 02/24/20 02/25/20 02/26/20 11:59 11:59 11:59 11:59 Intake Total 2249 3095 Output Total 1400 2175 Balance 849 920 Weight 117 kg Lab Results: Lab Results-Last 24 Hours 02/25/20 02/25/20 02/25/20 Range/Units 12:02 16:21 20:03 POC Glucometer 158 H 112 H 117 H (74 to 106) mg/dL 02/26/20 Range/Units 07:12 POC Glucometer 152 H (74 to 106) mg/dL Radiology Exams: Radiology Procedures Category Date Time Status ABDOMEN AND PELVIS W/0 CONTRAS [CT] Stat Exams 02/24/20 13:26 Completed CHEST 1 VIEW (PORTABLE) Stat Exams 02/24/20 13:26 Completed Multi-Disciplinary Progress Notes: Multi-Disciplinary Progress Notes 02/25/20 14:33 Case Management Note by Radha Grullon MESSAGE LEFT WITH DR. BEAL- THAT WE WILL ADDRESS DC PLANS AGAIN ON FRIDAY (HOME VS SWING VS SNF) D/T PATIENT CURRENTLY UNSURE HOW SHE WANTS TO USE HER SNF DAYS. (PATIENT STATES ONCE SHE IS WELL AGAIN SHE IS SUPPOSED TO HAVE SURGERY WITH DR. ANTONIO THAT WILL REQUIRE REHAB) Initialized on 02/25/20 14:33 - END OF NOTE Assessment/Plan (1) Sigmoid diverticulitis Current Visit: Yes Status: Acute Assessment & Plan: Abnormal Lab Results 02/25/20 02/25/20 02/25/20 Range/Units 12:02 16:21 20:03 POC Glucometer 158 H 112 H 117 H (74 to 106) mg/dL 02/26/20 Range/Units 07:12 POC Glucometer 152 H (74 to 106) mg/dL Medication Report Acetaminophen (Tylenol 325 Mg) 650 mg PO Q4HPRN PRN PRN Reason: PAIN Stop: 03/25/20 17:32 Last Admin: 02/25/20 21:33 Dose: 650 mg Documented by: MGOLDSWORT MAR PAIN Document 02/25/20 21:33 MG (Rec: 02/25/20 21:34 MG [id number]) Reassesment Pain Site Lower Location Back,Abdomen Pain Scale Used 0-10 Pain Scale Pain Intensity (0-10) 7 Re-Assess: Pain Reassessment Document 02/25/20 22:03 MG (Rec: 02/26/20 02:32 MG [id number]) Pain Description Pain Scale Used FLACC Comment Pt sleeping Allopurinol (Zyloprim 100 Mg) 100 mg PO BID [facility] Stop: 03/25/20 21:59 Last Admin: 02/25/20 21:33 Dose: 100 mg Documented by: LUCY Amiodarone HCl (Cordarone 200 Mg) 200 mg PO DAILY JAMAL Stop: 03/26/20 09:59 Last Admin: 02/25/20 08:58 Dose: 200 mg Documented by: JINA Carvedilol (Coreg 6.25 Mg) 6.25 mg PO BID JAMAL Stop: 03/25/20 21:59 Last Admin: 02/25/20 21:31 Dose: 6.25 mg Documented by: LUCY Dabigatran (Pradaxa 75 Mg) 150 mg PO BID JAMAL Stop: 03/25/20 21:59 Last Admin: 02/25/20 21:32 Dose: 150 mg Documented by: LUCY Diphenhydramine HCl (Benadryl 25 Mg Capsule) 25 mg PO HS PRN PRN PRN Reason: INSOMNIA Stop: 03/26/20 20:29 Last Admin: 02/25/20 21:33 Dose: 25 mg Documented by: LUCY Donepezil HCl (Aricept 10 Mg) 10 mg PO DAILY [facility] Stop: 03/26/20 09:59 Last Admin: 02/25/20 08:58 Dose: 10 mg Documented by: JINA Sodium Chloride (Sodium Chloride 0.9% 1000 Ml) 1,000 mls @ 100 mls/hr IV .Q10H [facility] Stop: 03/25/20 15:29 Last Admin: 02/26/20 05:46 Dose: 100 mls/hr Documented by: LUCY Infusion/Titration Document 02/26/20 05:46 MG (Rec: 02/26/20 05:46 MG [id number]) Dosing & Rate IV Rate 100 Increase/Decrease Started/Running Cumulative Dose Not Applicable IV Intake Cumulative Intake (Rx) 3,000 Container Volume 1,000 Volume Adjustment/Waste 0 Metronidazole (Flagyl 500 Mg Ivpb) 500 mg in 100 mls @ 200 mls/hr IV Q6HT [facility] Stop: 03/25/20 17:59 Last Admin: 02/26/20 05:46 Dose: 200 mls/hr Documented by: LUCY Insulin Glargine (Lantus Insulin) 26 unit SQ QHS JAMAL Stop: 03/25/20 21:59 Last Admin: 02/25/20 21:32 Dose: 26 unit Documented by: LUCY Comments: BS 117 Insulin Human Lispro (Humalog) 10 unit SQ DINNER JAMAL Stop: 03/25/20 17:59 Last Admin: 02/25/20 17:49 Dose: 10 unit Documented by: JINA PARIKH GLUCOSE CHECK Document 02/25/20 17:49 AR (Rec: 02/25/20 17:49 AR [id number]) Blood Glucose Glucose (Last Value) {112 mg/dL (74 to 106) H} MAR Injection Site Document 02/25/20 17:49 AR (Rec: 02/25/20 17:49 AR [id number]) Injection Site MAR Injection Site Right Lower Quad Insulin Human Lispro (Humalog) 12 unit SQ LUNCH JAMAL Stop: 03/26/20 11:59 Last Admin: 02/25/20 12:17 Dose: 12 unit Documented by: JINA PARIKH GLUCOSE CHECK Document 02/25/20 12:17 AR (Rec: 02/25/20 12:17 AR [id number]) Blood Glucose Glucose (Last Value) {158 mg/dL (74 to 106) H} MAR Injection Site Document 02/25/20 12:17 AR (Rec: 02/25/20 12:17 AR [id number]) Injection Site MAR Injection Site Right Upper Quad Insulin Human Lispro (Humalog) 14 unit SQ BREAKFAST JAMAL Stop: 03/26/20 07:59 Last Admin: 02/25/20 08:16 Dose: 14 unit Documented by: JINA PARIKH GLUCOSE CHECK Document 02/25/20 08:16 AR (Rec: 02/25/20 08:18 AR [id number]) Blood Glucose Glucose (Last Value) {147 mg/dL (74 to 106) H} MAR Injection Site Document 02/25/20 08:16 AR (Rec: 02/25/20 08:18 AR [id number]) Injection Site MAR Injection Site Right Upper Quad Isosorbide Mononitrate (Imdur 30 Mg) 30 mg PO DAILY JAMAL Stop: 03/26/20 09:59 Last Admin: 02/25/20 08:58 Dose: 30 mg Documented by: JINA Lisinopril (Zestril 5 Mg) 5 mg PO BID JAMAL Stop: 03/25/20 21:59 Last Admin: 02/25/20 21:33 Dose: 5 mg Documented by: LUCY Memantine (Namenda 5 Mg) 10 mg PO BID JAMAL Stop: 03/25/20 21:59 Last Admin: 02/25/20 21:32 Dose: 10 mg Documented by: LUCY Ondansetron HCl (Zofran 4 Mg/2 Ml Vial) 4 mg IV Q6H PRN PRN PRN Reason: NAUSEA/VOMITING Stop: 03/25/20 17:31 Last Admin: 02/25/20 03:14 Dose: 4 mg Documented by: PREETHI Pantoprazole Sodium (Protonix 40mg Tablet) 40 mg PO DAILY JAMAL Stop: 03/26/20 09:59 Last Admin: 02/25/20 08:58 Dose: 40 mg Documented by: JINA Pregabalin (Lyrica 50mg) 50 mg PO BID JAAML Stop: 03/25/20 21:59 Last Admin: 02/25/20 21:32 Dose: 50 mg Documented by: LUCY Ranolazine (Ranexa 500 Mg) 1,000 mg PO BID JAMAL Stop: 03/25/20 21:59 Last Admin: 02/25/20 21:32 Dose: 1,000 mg Documented by: LUCY Sertraline HCl (Zoloft 50 Mg Tablet) 50 mg PO DAILY [facility] Stop: 03/26/20 09:59 Last Admin: 02/25/20 08:58 Dose: 50 mg Documented by: JINA Vancomycin HCl (Vancomycin Hcl Capsule) 250 mg PO QID [facility] Stop: 03/25/20 17:59 Last Admin: 02/25/20 21:33 Dose: 250 mg Documented by: LUCY Discontinued Medications Sodium Chloride (Sodium Chloride 0.9% 1000 Ml) 1,000 mls @ 999 mls/hr IV .Q1H1M STA Stop: 02/24/20 14:25 Last Infusion: 02/24/20 15:29 Dose: 999 mls/hr Documented by: VIVIANA Infusion/Titration Document 02/24/20 15:29 VIVIANA (Rec: 02/24/20 15:29 VIVIANA [id number]) Dosing & Rate IV Rate 999 Increase/Decrease Infused Cumulative Dose Not Applicable IV Intake Infusion Intake 1,000 Cumulative Intake (Bag) 1,000 Cumulative Intake (Rx) 1,000 Container Volume 0 Volume Adjustment/Waste 0 Code(s): K57.32 - DVTRCLI OF LG INT W/O PERFORATION OR ABSCESS W/O BLEEDING (2) Weakness Current Visit: Yes Status: Acute Code(s): R53.1 - WEAKNESS (3) Essential hypertension Current Visit: Yes Status: Chronic Code(s): I10 - ESSENTIAL (PRIMARY) HYPERTENSION (4) C. difficile diarrhea Current Visit: Yes Status: Acute Assessment & Plan: improving Code(s): A04.72 - ENTEROCOLITIS D/T CLOSTRIDIUM DIFFICILE, NOT SPCF RECUR
[2020-02-26] MEDS: HUMALOG SQ SCH ×3 (08:27→18:18)
[2020-02-26] MEDS: TYLENOL 325 MG PO PRN ×2 (08:40→15:16)
[2020-02-26] MEDS: Ranexa 500 MG PO SCH ×2 (10:19→21:48)
[2020-02-26] MEDS: Coreg 6.25 MG PO SCH ×2 (10:19→21:47)
[2020-02-26] MEDS: Aricept 10 MG PO SCH (10:20)
[2020-02-26] MEDS: Lyrica 50MG PO SCH ×2 (10:20→21:47)
[2020-02-26] MEDS: Namenda 5 MG PO SCH ×2 (10:20→21:47)
[2020-02-26] MEDS: Cordarone 200 MG PO SCH (10:20)
[2020-02-26] MEDS: Imdur 30 MG PO SCH (10:20)
[2020-02-26] MEDS: Protonix 40MG Tablet PO SCH (10:20)
[2020-02-26] MEDS: VANCOMYCIN HCL CAPSULE PO SCH ×4 (10:20→21:48)
[2020-02-26] MEDS: Zestril 5 MG PO SCH ×2 (10:20→21:48)
[2020-02-26] MEDS: ZOLOFT 50 MG TABLET PO SCH (10:20)
[2020-02-26] MEDS: ZYLOPRIM 100 MG PO SCH ×2 (10:20→21:48)
[2020-02-26] MEDS: PRADAXA 75 MG PO SCH ×2 (10:22→21:47)
[2020-02-26] MEDS ORDERED: TYLENOL 325 MG PO PRN (17:25)
[2020-02-26] MEDS: ULTRAM 50 MG PO PRN ×2 (17:31→23:55)
[2020-02-26] MEDS ORDERED: ULTRAM 50 MG ONE (17:31)
[2020-02-26] MEDS ORDERED: TYLENOL EXTRA STRENGTH 500 MG ONE (21:05)
[2020-02-26] MEDS: Lantus Insulin SQ SCH (21:47)
[2020-02-26] MEDS: TYLENOL EXTRA STRENGTH 500 MG PO PRN (21:50)
[2020-02-26] MEDS: BENADRYL 25 MG CAPSULE PO PRN (21:52)
[2020-02-27] MEDS: TYLENOL EXTRA STRENGTH 500 MG PO PRN ×3 (03:39→21:27)
[2020-02-27] MEDS: Sodium Chloride 0.9% 1000 ML 1,000 ML IV SCH (05:24)
[2020-02-27] MEDS: FLAGYL 500 MG IVPB 500 MG/100 ML BAG IV SCH ×4 (05:24→23:29)
[2020-02-27 07:47] LABS: Hematocrit 32.3 % (35-47); Mean Cell Volume 99.4 fl (78-100); Mean Corpuscular Hemoglobin 30.8 pg (26-32); Mean Platelet Volume 11.3 fl (7.5-11.0); Platelet Count 201 K/mm3 (150-450); Red Blood Count 3.25 M/mm3 (4.1-5.4); Red Cell Distribution Width 17.6 % (11.5-14.0); White Blood Count 5.9 K/mm3 (4.0-10.5)
[2020-02-27] MEDS: Lasix 40 MG/4 ML IV SCH (07:52)
[2020-02-27] MEDS: HUMALOG SQ SCH ×3 (07:53→17:32)
[2020-02-27 08:45] LABS: ALBUMIN 2.8 g/dL (3.5-5.0); ALKALINE PHOSPHATASE 73 U/L (38-126); ANION GAP 7.7 MEQ/L (5-15); BLOOD UREA NITROGEN 11 mg/dL (7-17); CHLORIDE 111 mmol/L (98-107); Calcium 8.4 mg/dL (8.4-10.2); Carbon Dioxide 26 mmol/L (22-30); EST GLOMERULAR FILTRATION RATE > 60.0 ML/MIN; Glucose 186 mg/dL (74-106); Potassium 4.6 mmol/L (3.5-5.1); SGOT/AST 18 U/L (14-36); SGPT/ALT 16 U/L (0-35); SODIUM 140 mmol/L (137-145)
[2020-02-27] MEDS: Namenda 5 MG PO SCH ×2 (09:37→21:18)
[2020-02-27] MEDS: Imdur 30 MG PO SCH (09:37)
[2020-02-27] MEDS: PRADAXA 75 MG PO SCH ×2 (09:37→21:18)
[2020-02-27] MEDS: Aricept 10 MG PO SCH (09:37)
[2020-02-27] MEDS: Cordarone 200 MG PO SCH (09:37)
[2020-02-27] MEDS: Lyrica 50MG PO SCH ×2 (09:37→21:18)
[2020-02-27] MEDS: Coreg 6.25 MG PO SCH ×2 (09:37→21:18)
[2020-02-27] MEDS: VANCOMYCIN HCL CAPSULE PO SCH ×4 (09:38→21:19)
[2020-02-27] MEDS: Zestril 5 MG PO SCH ×2 (09:38→21:19)
[2020-02-27] MEDS: Ranexa 500 MG PO SCH ×2 (09:38→21:19)
[2020-02-27] MEDS: Protonix 40MG Tablet PO SCH (09:38)
[2020-02-27] MEDS: ZOLOFT 50 MG TABLET PO SCH (09:38)
[2020-02-27] MEDS: ZYLOPRIM 100 MG PO SCH ×2 (09:38→21:19)
[2020-02-27] MEDS: ULTRAM 50 MG PO PRN ×2 (09:41→21:27)
--- NOTE | 2020-02-27 09:56 | PCM.NOTE ---
Date and Time: 02/27/20953 Subjective Assessment: swelling on legs. denies shortness of breath - Review of Systems Constitutional: No Fever, No Chills Eyes: No Symptoms Ears, Nose, & Throat: No Symptoms Respiratory: No Cough, No Short Of Breath Cardiac: No Chest Pain, No Edema, No Syncope Abdominal/Gastrointestinal: No Abdominal Pain, No Nausea, No Vomiting, No Diarrhea Genitourinary Symptoms: No Dysuria Musculoskeletal: No Back Pain, No Neck Pain Skin: No Rash Neurological: No Dizziness, No Focal Weakness, No Sensory Changes Psychological: No Symptoms Endocrine: No Symptoms Hematologic/Lymphatic: No Symptoms Immunological/Allergic: No Symptoms Objective Exam General Appearance: no apparent distress, alert Neurologic Exam: alert, oriented x 3, cooperative, normal mood/affect, nml cerebellar function, sensation nml, No motor deficits Skin Exam: normal color, warm, dry Eye Exam: PERRL, EOMI, eyes nml inspection Ears, Nose, Throat Exam: normal ENT inspection, pharynx normal, moist mucous membranes Neck Exam: normal inspection, non-tender, supple, full range of motion Respiratory Exam: normal breath sounds, lungs clear, No respiratory distress Cardiovascular Exam: regular rate/rhythm, normal heart sounds Gastrointestinal/Abdomen Exam: soft, No tenderness, No mass Extremity Exam: normal inspection, normal range of motion Back Exam: normal inspection, normal range of motion, No CVA tenderness, No vertebral tenderness Pelvic Exam: deferred Rectal Exam: deferred OBJECTIVE DATA Vital Signs: Vital Signs - 24 hr Temp Pulse Resp BP Pulse Ox 02/27/20 07:51 97.6 F 87 22 132/59 97 02/27/20 07:23 96 02/27/20 04:00 97.7 F 59 L 20 155/59 97 02/27/20 00:00 98.7 F 61 16 132/57 96 02/26/20 20:00 97.7 F 53 L 21 138/67 94 L 02/26/20 19:07 99 02/26/20 16:00 97.8 F 50 L 18 124/59 96 02/26/20 12:00 97.8 F 57 L 18 140/60 94 L Oxygen-Last 24 hours Oxygen Flowrate (L/min)-RT 3 Oxygen Flowrate (L/min)-RT 3 Pain Assessment - Last Documented Pain Intensity 9 Pain Scale Used 0-10 Pain Scale Intake and Output: Intake & Output 02/24/20 02/25/20 02/26/20 02/27/20 11:59 11:59 11:59 11:59 Intake Total 0451 5000 3406 Output Total 5335 2775 1400 Balance 849 1040 2005 Weight 117 kg 119.9 kg 121 kg Lab Results: Lab Results-Last 24 Hours 02/26/20 02/26/20 02/26/20 Range/Units 11:37 16:37 20:42 WBC (4.0-10.5) K/mm3 RBC (4.1-5.4) M/mm3 Hgb (12.0-16.0) gm/dl Hct (35-47) % MCV (78-100) fl MCH (26-32) pg MCHC (32-36) g/dl RDW (11.5-14.0) % Plt Count (150-450) K/mm3 MPV (7.5-11.0) fl Sodium (137-145) mmol/L Potassium (3.5-5.1) mmol/L Chloride (98-107) mmol/L Carbon Dioxide (22-30) mmol/L Anion Gap (5-15) MEQ/L BUN (7-17) mg/dL Creatinine (0.52-1.04) mg/dL Estimated GFR ML/MIN Glucose (74-106) mg/dL POC Glucometer 233 H 80 155 H (74 to 106) mg/dL Calcium (8.4-10.2) mg/dL Total Bilirubin (0.2-1.3) mg/dL AST (14-36) U/L ALT (0-35) U/L Alkaline Phosphatase (38-126) U/L Serum Total Protein (6.3-8.2) g/dL Albumin (3.5-5.0) g/dL 02/27/20 02/27/20 02/27/20 Range/Units 07:15 07:15 07:22 WBC 5.9 (4.0-10.5) K/mm3 RBC 3.25 L (4.1-5.4) M/mm3 Hgb 10.0 L (12.0-16.0) gm/dl Hct 32.3 L (35-47) % MCV 99.4 (78-100) fl MCH 30.8 (26-32) pg MCHC 31.0 L (32-36) g/dl RDW 17.6 H (11.5-14.0) % Plt Count 201 (150-450) K/mm3 MPV 11.3 H (7.5-11.0) fl Sodium 140 (137-145) mmol/L Potassium 4.6 (3.5-5.1) mmol/L Chloride 111 H (98-107) mmol/L Carbon Dioxide 26 (22-30) mmol/L Anion Gap 7.7 (5-15) MEQ/L BUN 11 (7-17) mg/dL Creatinine 0.70 (0.52-1.04) mg/dL Estimated GFR > 60.0 ML/MIN Glucose 186 H (74-106) mg/dL POC Glucometer 169 H (74 to 106) mg/dL Calcium 8.4 (8.4-10.2) mg/dL Total Bilirubin 0.30 (0.2-1.3) mg/dL AST 18 (14-36) U/L ALT 16 (0-35) U/L Alkaline Phosphatase 73 (38-126) U/L Serum Total Protein 5.0 L (6.3-8.2) g/dL Albumin 2.8 L (3.5-5.0) g/dL Assessment/Plan (1) Sigmoid diverticulitis Current Visit: Yes Status: Acute Assessment & Plan: improving Code(s): K57.32 - DVTRCLI OF LG INT W/O PERFORATION OR ABSCESS W/O BLEEDING (2) Weakness Current Visit: Yes Status: Resolved Code(s): R53.1 - WEAKNESS (3) Essential hypertension Current Visit: Yes Status: Chronic Code(s): I10 - ESSENTIAL (PRIMARY) HYPER TENSION (4) C. difficile diarrhea Current Visit: Yes Status: Resolved Code(s): A04.72 - ENTEROCOLITIS D/T CLOSTRIDIUM DIFFICILE, NOT SPCF RECUR
[2020-02-27] MEDS ORDERED: Lasix 40 MG/4 ML IV SCH (10:00)
[2020-02-27] MEDS: Lantus Insulin SQ SCH (21:18)
[2020-02-27] MEDS: BENADRYL 25 MG CAPSULE PO PRN (21:27)
[2020-02-28 04:56] LABS: Hematocrit 33.2 % (35-47); Hemoglobin 10.1 gm/dl (12.0-16.0); Mean Cell Volume 99.7 fl (78-100); Mean Corpuscular Hemoglobin 30.3 pg (26-32); Mean Corpuscular Hgb Concent. 30.4 g/dl (32-36); Mean Platelet Volume 10.9 fl (7.5-11.0); Platelet Count 192 K/mm3 (150-450); Red Blood Count 3.33 M/mm3 (4.1-5.4); Red Cell Distribution Width 17.6 % (11.5-14.0); White Blood Count 8.1 K/mm3 (4.0-10.5)
[2020-02-28] MEDS: FLAGYL 500 MG IVPB 500 MG/100 ML BAG IV SCH (05:57)
[2020-02-28 06:13] LABS: ALBUMIN 2.9 g/dL (3.5-5.0); ALKALINE PHOSPHATASE 74 U/L (38-126); ANION GAP 7.5 MEQ/L (5-15); BLOOD UREA NITROGEN 13 mg/dL (7-17); CHLORIDE 107 mmol/L (98-107); Calcium 8.3 mg/dL (8.4-10.2); Carbon Dioxide 29 mmol/L (22-30); Creatinine 1 0.74 mg/dL (0.52-1.04); EST GLOMERULAR FILTRATION RATE > 60.0 ML/MIN; Glucose 140 mg/dL (74-106); Potassium 4.6 mmol/L (3.5-5.1); SGOT/AST 20 U/L (14-36); SGPT/ALT 16 U/L (0-35); SODIUM 139 mmol/L (137-145); Total Protein 5.1 g/dL (6.3-8.2)
[2020-02-28] MEDS: Lasix 40 MG/4 ML IV SCH (07:46)
[2020-02-28] MEDS: HUMALOG SQ SCH ×3 (08:02→16:43)
[2020-02-28] MEDS: Zestril 5 MG PO SCH ×2 (10:17→21:49)
[2020-02-28] MEDS: Cordarone 200 MG PO SCH (10:17)
[2020-02-28] MEDS: VANCOMYCIN HCL CAPSULE PO SCH ×4 (10:17→21:47)
[2020-02-28] MEDS: Aricept 10 MG PO SCH (10:17)
[2020-02-28] MEDS: Ranexa 500 MG PO SCH ×2 (10:17→21:48)
[2020-02-28] MEDS: ZYLOPRIM 100 MG PO SCH ×2 (10:17→21:49)
[2020-02-28] MEDS: Imdur 30 MG PO SCH (10:17)
[2020-02-28] MEDS: Coreg 6.25 MG PO SCH ×2 (10:18→21:49)
[2020-02-28] MEDS: PRADAXA 75 MG PO SCH ×2 (10:18→21:52)
[2020-02-28] MEDS: Lyrica 50MG PO SCH ×2 (10:18→21:48)
[2020-02-28] MEDS: Protonix 40MG Tablet PO SCH (10:18)
[2020-02-28] MEDS: Namenda 5 MG PO SCH ×2 (10:18→21:49)
[2020-02-28] MEDS: ZOLOFT 50 MG TABLET PO SCH (10:18)
[2020-02-28] MEDS: Lasix 40 MG PO SCH (10:19)
[2020-02-28] MEDS: Lantus Insulin SQ SCH (21:49)
[2020-02-28] MEDS ORDERED: CORTISONE 1% CREAM TP PRN (22:47)
[2020-02-29] MEDS: HUMALOG SQ SCH ×2 (09:12→15:03)
[2020-02-29] MEDS: VANCOMYCIN HCL CAPSULE PO SCH ×2 (09:48→15:03)
[2020-02-29] MEDS: ZYLOPRIM 100 MG PO SCH (09:48)
[2020-02-29] MEDS: Protonix 40MG Tablet PO SCH (09:48)
[2020-02-29] MEDS: Lasix 40 MG PO SCH (09:48)
[2020-02-29] MEDS: PRADAXA 75 MG PO SCH (09:48)
[2020-02-29] MEDS: Lyrica 50MG PO SCH (09:48)
[2020-02-29] MEDS: Namenda 5 MG PO SCH (09:48)
[2020-02-29] MEDS: Cordarone 200 MG PO SCH (09:48)
[2020-02-29] MEDS: Ranexa 500 MG PO SCH (09:48)
[2020-02-29] MEDS: Aricept 10 MG PO SCH (09:48)
[2020-02-29] MEDS: Coreg 6.25 MG PO SCH (09:48)
[2020-02-29] MEDS: ZOLOFT 50 MG TABLET PO SCH (09:48)
[2020-02-29] MEDS: Imdur 30 MG PO SCH (09:49)
[2020-02-29] MEDS: Zestril 5 MG PO SCH (09:49)
--- NOTE | 2020-02-29 11:44 | DS ---
DISCHARGE DIAGNOSES: 1) ACUTE RENAL INSUFFICIENCY. 2) SIGMOID DIVERTICULITIS. 3) CLOSTRIDIUM DIFFICILE INFECTION OF THE COLON. HOSPITAL COURSE: The patient is a 69 year old white female who began to have problems with diarrhea. She was found to have Clostridium difficile colitis and brought into the hospital for antibiotic treatments. The patient is also noted to have mild renal insufficiency. After IV fluids this actually resolved to a creatinine of 0.74. The patient has seen Dr. Reinoso's partner in the past and requested to see him again. The patient's white count on 02/28/2020 was down to 8,100 with hemoglobin 10.1, PLT count 192,000. Glucose 140 fasting, BUN 13, creatinine 0.74. Liver enzymes were normal. The patient complained of pain throughout her stay and wished to be on swing-bed although the patient was actually doing everything for herself except wiping her bottom. The patient was difficult and argumentative at the time and just grumbling in general. The patient did not really qualify for inpatient stay as she was really able to do everything for herself anyway. By the day of discharge, the patient was discharged home. She did qualify for home oxygen with ambulation dropping her saturations to below 90%. We did sign for her oxygen. She does have oxygen at home already for her CPAP. The patient's stool otherwise became more solid and the last test confirmed she was negative for Clostridium difficile but would not be ran by the lab because it was too solid. Otherwise the patient is felt to be ready for discharge home and will continue her usual home medications and follow up with Dr. Reyna in the next week. Her home medicines were: Allopurinol 100 mg b.i.d., amiodarone 200 mg daily, carvedilol 12.5 mg one half tablet b.i.d., Pradaxa 150 mg b.i.d., isosorbide 30 mg a day, pantoprazole 40 mg a day, Ranexa 1,000 mg b.i.d., Zoloft 50 mg a day, potassium 20 mEq b.i.d. She is on insulin Lantus and Humalog, Lyrica 50 mg b.i.d. Bumex 4 mg a day was discontinued. The patient is currently on furosemide 20 mg b.i.d., Flexeril 5 mg b.i.d. for her back pain, Apresoline 25 mg four times a day PRN for elevated blood pressure, Lisinopril 5 mg b.i.d. She had been on oral vancomycin 150 mg four times a day orally.
[2020-02-29 11:57] VITALS: BP 170/80; PULSE 69; O2SAT 97
== END 2020-02-29 15:15 | disposition home health service (06) | DRG 699 ==
LOC: ED 13:03 → MED SURG 16:35 → OBSVTOIN 02-25 08:16
PROVIDERS: ADMIT Family Medicine; ATTEND Family Medicine
DX: E11.22 Type 2 diabetes mellitus with diabetic chronic kidney disease (principal); K57.32 Diverticulitis of large intestine without perforation or abscess without bleeding; A04.72 Enterocolitis due to Clostridium difficile, not specified as recurrent; I12.9 Hypertensive chronic kidney disease with stage 1 through stage 4 chronic kidney disease, or unspecified chronic kidney disease; N18.30 Chronic kidney disease, stage 3 unspecified; R53.1 Weakness; I48.0 Paroxysmal atrial fibrillation; R10.84 Generalized abdominal pain; R11.2 Nausea with vomiting, unspecified; Z79.899 Other long term (current) drug therapy; Z79.4 Long term (current) use of insulin; J44.9 Chronic obstructive pulmonary disease, unspecified; E78.00 Pure hypercholesterolemia, unspecified; F41.9 Anxiety disorder, unspecified
CPT/HCPCS: 36000; 36415; 71045; 74176; 80053; 81001; 82150; 82947; 83036; 83605; 83690; 83735; 84484; 85025; 85027; 85610; 93005; 93268; 94660; 94760; 96360; 99285; J1817; J1940; J2405; A9270-GY; G0378

== ENCOUNTER 2020-12-27 10:20 | Day surgery (SDC) | payer MEDICARE, BC ==
[2011-12-24 11:23] VITALS: BP 147/74
[2020-12-27] MEDS ORDERED: Depo-Medrol 40 MG/ML IM ONE (10:21)
[2020-12-27] MEDS ORDERED: Sodium Chloride 0.9(Preservative Free) 10 ML IJ ONE (10:21)
[2020-12-27] MEDS ORDERED: DIPRIVAN 200 MG/20 ML IV ONE (11:00)
[2020-12-27] MEDS ORDERED: Lactated Ringers 1,000 ML IV ONE (16:12)
--- NOTE | 2020-12-28 11:19 | XRAY ---
20 seconds fluoroscopy time in surgery for caudal MICHAEL.
--- NOTE | 2020-12-30 22:38 | XRAY ---
Indication: Caudal MICHAEL. Intraoperative fluoroscopy was provided for 20 seconds. 2 digital spot images submitted for interpretation demonstrates posterior caudal needle tip projected over the mid sacrum. A small amount of contrast has been injected for needle tip placement. Correlate with intraoperative findings/report.
== END 2020-12-27 11:22 | disposition home or self-care (01) ==
LOC: SDC-PAIN 10:20
PROVIDERS: ATTEND Psychiatry & Neurology Pain Medicine
DX: M54.16 Radiculopathy, lumbar region (principal); E11.9 Type 2 diabetes mellitus without complications; Z79.899 Other long term (current) drug therapy
CPT/HCPCS: 62323; 72100; 77003; 82947; J1030; J2704; Q9966

== ENCOUNTER 2021-02-20 13:36 | Day surgery (SDC) | payer MEDICARE, BC ==
[2021-02-20] MEDS: CLINDAMYCIN-D5W 900 MG/50 ML*** 900 MG/50 ML BAG IV SCH (13:59)
[2021-02-20] MEDS: Lactated Ringers 1,000 ML IV SCH (13:59)
[2021-02-20] MEDS ORDERED: BUPIVACAINE 0.5% VIAL IJ ONE (14:31)
[2021-02-20] MEDS ORDERED: XYLOCAINE 1% HCL 20 ML MDV ONE (14:32)
[2021-02-20] MEDS ORDERED: Lactated Ringers 1,000 ML IV ONE (14:32)
[2021-02-20] MEDS ORDERED: DIPRIVAN 200 MG/20 ML IV ONE ×2 (14:33)
[2021-02-20] MEDS ORDERED: SUBLIMAZE 100 MCG/2 ML ONE ×2 (14:33→14:50)
[2021-02-20] MEDS ORDERED: Xylocaine-Mpf 2% 5 Ml Vial ONE (14:33)
[2021-02-20] MEDS ORDERED: Versed 2 MG/2 ML Injection ONE (14:37)
[2021-02-20 16:33] LABS: ALBUMIN 3.7 g/dL (3.5-5.0); ALKALINE PHOSPHATASE 82 U/L (38-126); ANION GAP 10.9 MEQ/L (5-15); BLOOD UREA NITROGEN 8 mg/dL (7-17); CHLORIDE 103 mmol/L (98-107); Carbon Dioxide 28 mmol/L (22-30); Creatinine 1 0.69 mg/dL (0.52-1.04); EST GLOMERULAR FILTRATION RATE > 60.0 ML/MIN; Glucose 141 mg/dL (74-106); Potassium 3.7 mmol/L (3.5-5.1); SGOT/AST 27 U/L (14-36); SGPT/ALT 18 U/L (0-35); SODIUM 139 mmol/L (137-145); Total Protein 6.3 g/dL (6.3-8.2)
--- NOTE | 2021-02-21 10:06 | OP ---
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 PROCEDURE: Excision of cyst and primary closure. SURGEON: Rahul Bradford DPM. IN FLIGHT TECHNICIAN: None. ANESTHESIA: MAC plus local. See injectables for details. HEMOSTASIS: Ankle tourniquet set to 250 mm of [place] for 30 minutes. ESTIMATED BLOOD LOSS: Less than 10 cc. MATERIALS: 1-[address] needle, 2-0 Vicryl and 2-0 Nylon on an SH. INJECTABLES: 20 cc of a 1:1 mixture of 1% lidocaine plain and 0.5% bupivacaine plain injected in a [place]-block type fashion at the proximal extent of the ulceration. DESCRIPTION OF PROCEDURE AND FINDINGS: The patient was brought into the OR and placed on the OR table in the supine position. At this time well-padded ankle tourniquet was applied to the left ankle. At this time the left lower extremity was prepped and draped in the typical sterile fashion. Attention then was directed to the area with the communicating cyst to the lateral aspect of the left foot. Skin markers were utilized to make an ellipse incision measuring out to be about 1.5 x 0.5 in order to excise this cyst in total. At this time the cyst itself measured 0.5 x 0.4 dimensions were chosen in regards to do a 3:1 ellipse to allow for the closure of the surgical wound. At this time an incision was made utilizing a 15 blade to the subcutaneous tissue and immediately encountered a significant amount of scar tissue from previous surgical intervention. Careful dissection was carried out using a combination of sharp and blunt dissection in order to prevent any injury to the superficial peroneal or sural nerves that were not necessarily near this area but to prevent injury which was not encountered during the surgical intervention. The sinus and cyst was removed and handed off the field for pathological assessment. At this time copious amounts of sterile saline were utilized to flush the surgical site. Because of the significant amount of scar tissue the edges of the wound were made full thickness and a [place] was utilized to free up the soft tissue planes in order to mobilize the skin edges under minimal tension. At this time a 1-[address] needle was utilized to coapt the central aspect of the surgical wound. At this time 2-0 Nylon was utilized in a trauma stitch-type fashion in order to coapt the surgical skin edges while the foot was in a dorsiflex position. Preoperatively it was determined that the patient did have a significant amount of venous insufficiency that increased the potential for a wound dehiscence. In order eliminate the tension a dressing consisting of Chlorhexidine, Adaptic, 4x4 and Kerlix was applied to the surgical wound and then an [place] boot was applied in order to provide for compression of the edema to the left lower extremity. At this time the tourniquet was let down that was approximately 30 minutes total tourniquet time. The patient was reversed from anesthesia and handled the procedure without complication. The patient was returned to the postoperative anesthesia care unit with vital signs stable and vascular status intact. The patient handled the procedure without complication. Postoperative orders as indicated in the patient's chart.
[2021-02-26 16:43] VITALS: BP 158/70; PULSE 60; O2SAT 95
== END 2021-02-20 17:10 | disposition home or self-care (01) ==
LOC: SDC 13:36
PROVIDERS: ATTEND Podiatrist Foot & Ankle Surgery
DX: L72.0 Epidermal cyst (principal); E11.621 Type 2 diabetes mellitus with foot ulcer; S91.302A Unspecified open wound, left foot, initial encounter
CPT/HCPCS: 11422; 36415; 80053; 82947; 88304; J2250; J2704; J3010

== ENCOUNTER 2021-06-15 16:10 | Observation (INO) | payer MEDICARE, BC ==
--- NOTE | 2021-06-15 17:06 | ERPHSYRPT ---
- History of Present Illness Source: patient Exam Limitations: no limitations Patient Subjective Stated Complaint: Pt has elisha lower leg edema with drainage from the left leg Triage Nursing Assessment: Pt brought to the ER by her son, hypertensive, denies pain, drainage from left lower leg, small blisters, right leg has some blisters but has not started draining at this time, +3 edema in elisha legs, pt has CHF Physician History: 71 yo wf w B LE edema increasing for 1 week w L pre-tibial erythema increasing over the last 2 days. Pt states that she has been having increasing dyspnea at rest and exertion over the last 2-3 days but denies chest pain. Method of Injury: other (No injury) Occurred: other (1week) Quality: aching Severity of Pain-Max: moderate Severity of Pain-Current: moderate Lower Extremities Pain: leg: bilateral Modifying Factors: Improves With: movement Associated Symptoms: No unable to bear weight Allergies/Adverse Reactions: morphine Allergy (Severe, Verified 06/15/21 16:27) anaphylaxis pt went into respiratory failure and acute renal failure the last time she had morphine. "I was in a coma for a week" adhesive Allergy (Mild, Verified 06/15/21 16:27) Blisters aspirin Allergy (Verified 06/15/21 16:27) Difficulty Breathing PT STATES THAT SHE CAN TAKE ASPIRIN 81 MG BUT NOTHING HIGHER IN DOSE. Penicillins Allergy (Verified 06/15/21 16:27) Rash povidone-iodine [From Betadine] Allergy (Verified 06/15/21 16:27) BLISTERES soap [From Betadine] Allergy (Verified 06/15/21 16:27) Blisters Home Medications: Allopurinol 100 mg [Zyloprim 100 mg] 100 mg PO BID 11/18/18 [History] Amiodarone HCl 200 mg [Cordarone 200 MG] 200 mg PO DAILY 11/18/18 [History] Isosorbide Mononitrate 30 mg [Imdur 30 MG] 30 mg PO DAILY 11/18/18 [History] PANTOPRAZOLE 40 mg Tablet [Protonix 40MG Tablet] 40 mg PO DAILY 11/18/18 [History] Sertraline HCl 50 mg [Zoloft 50 mg Tablet] 50 mg PO DAILY 11/18/18 [History] Insulin Glargine [Lantus Insulin] 36 unit SQ QHS 03/23/19 [History] Insulin Lispro [Humalog] 20 unit SQ BREAKFAST 03/23/19 [History] Insulin Lispro [Humalog] 16 unit SQ DINNER 11/03/19 [History] Insulin Lispro [Humalog] 20 unit SQ LUNCH 11/03/19 [History] Donepezil HCl 10 mg [Aricept 10 MG] 1 tab PO DAILY 02/09/20 [History] Acetaminophen 325 mg [Tylenol 325 mg] 650 mg PO Q4HPRN PRN 02/24/20 [History] Aspirin 81 mg PO DAILY 02/19/21 [History] Carvedilol 3.125 mg [Coreg 3.125 MG] 3.125 mg PO DAILY 02/19/21 [History] Cholecalciferol (Vitamin D3) [Vitamin D3] 1,000 units PO DAILY 02/19/21 [History] Multivit-Minerals/Folic/Ginkgo [One Daily For Women 50+ Adv Tb] 1 tab PO DAILY 02/19/21 [History] Rosuvastatin Calcium 10 mg PO HS 02/19/21 [History] Amlodipine Besylate 2.5 mg PO DAILY 06/15/21 [History] Apixaban [Eliquis 5 mg Tablet] 5 mg PO DAILY 06/15/21 [History] Losartan Potassium 100 mg PO DAILY 06/15/21 [History] Potassium Chloride 20 meq PO BID 06/15/21 [History] Pregabalin 100 mg PO BID 06/15/21 [History] Torsemide 20 mg [Demadex 20 mg] 40 mg PO BID 06/15/21 [History] Hx Tetanus, Diphtheria Vaccination/Date Given: Yes Hx Influenza Vaccination/Date Given: Yes Hx Pneumococcal Vaccination/Date Given: Yes Travel Risk - International Travel Have you traveled outside of the country in past 3 weeks: No - Coronavirus Screening Are you exhibiting any of the following symptoms?: No Close contact with a COVID-19 positive Pt in past 14-21 Days: No - Vaccine Status Have you recieved a Covid-19 vaccination: No - Review of Systems Constitutional: No Symptoms, Lethargy Eyes: No Symptoms Ears, Nose, & Throat: No Symptoms Respiratory: No Symptoms, Dyspnea, Dyspnea on Exertion (JOYA) Cardiac: No Symptoms, Orthopnea Abdominal/Gastrointestinal: No Symptoms Genitourinary Symptoms: No Symptoms Musculoskeletal: No Symptoms, Other Skin: Cellulitis Neurological: No Symptoms Psychological: No Symptoms Endocrine: No Symptoms Hematologic/Lymphatic: No Symptoms Immunological/Allergic: No Symptoms - Past Medical History Pertinent Past Medical History: Yes Neurological History: Peripheral Neuropathy ENT History: No Pertinent History Cardiac History: Angina, Arrhythmia, Congestive Heart Failure, High Cholesterol, Hypertension Respiratory History: COPD, Pneumonia Endocrine Medical History: Diabetes Type II Musculoskeletal History: Arthritis, Fractures GI Medical History: Diverticulitis, Other History: Other Psycho-Social History: No Pertinent History Female Reproductive Disorders: No Pertinent History Other Medical History: Impaired kidney function, HYPOKALEMIA, LEFT ANKLE FRACTURE 05/07/19, C DIFF - Past Surgical History Past Surgical History: Yes Neuro Surgical History: No Pertinent History Cardiac: No Pertinent History Respiratory: No Pertinent History Gastrointestinal: Appendectomy Genitourinary: No Pertinent History Musculoskeletal: Orthopedic Surgery Female Surgical History: Hysterectomy Other Surgical History: Multiple hand surgeries, - Social History Smoking Status: Former smoker How long have you smoked: 1 year Exposure to second hand smoke: No Alcohol Use: None Drug Use: none Patient Lives Alone: No Significant Family History: diabetes, hypertension - Nursing Vital Signs Nursing Vital Signs: Initial Vital Signs Temperature 97.1 F 06/15/21 16:19 Pulse Rate 63 06/15/21 16:19 Blood Pressure 165/69 06/15/21 16:19 O2 Sat by Pulse Oximetry 94 L 06/15/21 16:19 Pain Scale Pain Intensity 0 Hypertensive/Borderline sats - Physical Exam General Appearance: no apparent distress Eyes, Ears, Nose, Throat Exam: normal ENT inspection, TMs normal, pharynx normal, moist mucous membranes Neck Exam: normal inspection, non-tender, supple, full range of motion, No Brudzinski, No Kernig's, No meningismus, No carotid bruit Cardiovascular/Respiratory Exam: normal breath sounds, regular rate/rhythm, heart sounds normal Gastrointestinal/Abdominal Exam: non-tender, soft (Morbidly obese) Back Exam: normal inspection Hips Exam: bilateral: non-tender Legs Exam: bilateral leg: non-tender, normal inspection, normal range of motion Knees Exam: bilateral knee: non-tender, normal inspection, normal range of motion Ankle Exam: bilateral ankle: swelling (B LE 2+ edema w L pre-tibial erythema w TTP/Good pedal pulses B) Foot Exam: bilateral foot: non-tender, normal inspection, normal range of motion, no evidence of injury DTR - Lower Extremities Exam: knee (R): 2+, knee (L): 2+ Neuro/Tendon Exam: normal sensation, normal motor functions, normal tendon functions, responds to pain, no evidence tendon injury Mental Status Exam: alert, oriented x 3, cooperative Skin Exam: other (Cellulitis L pre-tibial area w weeping) SpO2 Interpretation: normal SpO2: 94 O2 Delivery: Room Air - Course Nursing assessment & vital signs reviewed: Yes EKG Interpreted by Me: RATE (Sinus lynn/R52/Prolonged QT-QTc/Poor R wave progression/No acute ST segment changes) - Radiology Exams Chest X-ray Interpretation: Interpreted by me (Pulmonary vascular congestion/Device in ventricle) Ordered Tests: Active Orders 24 hr Category Date Time Status EKG-ER Only STAT Care 06/15/21 16:48 Completed Consistent Carbohydrate Diet 2000 Calorie Diet 06/15/21 Breakfast Active CHEST 1 VIEW (PORTABLE) Stat Exams 06/15/21 17:23 Completed BLOOD CULTURE Stat Lab 06/15/21 18:46 Stop Req BMP AM.LAB Lab 06/16/21 04:00 Ordered CBC AM.LAB Lab 06/16/21 04:00 Ordered CBC W DIFF Stat Lab 06/15/21 17:10 Completed CMP AM.LAB Lab 06/17/21 04:00 Ordered CMP Stat Lab 06/15/21 17:10 Completed CULTURE,WOUND Stat Lab 06/15/21 Ordered Lactic Acid Stat Lab 06/15/21 16:46 Completed NT PRO BNP AM.LAB Lab 06/16/21 04:00 Ordered NT PRO BNP Stat Lab 06/15/21 17:10 Completed PROTIME WITH INR Stat Lab 06/15/21 17:10 Completed PTT Stat Lab 06/15/21 17:10 Completed TROPONIN Q3H Lab 06/15/21 17:10 Completed TROPONIN Q3H Lab 06/15/21 20:00 Completed TROPONIN Q3H Lab 06/15/21 23:00 Ordered TROPONIN Q3H Lab 06/16/21 02:00 Ordered TROPONIN Q3H Lab 06/16/21 05:00 Ordered Transfer Order Routine Transfer 06/15/21 Completed Medication Summary Generic Name Dose Route Start Last Admin Trade Name Boaz PRN Reason Stop Dose Admin Allopurinol 100 mg 06/15/21 22:00 06/15/21 22:00 Allopurinol 100 Mg Tablet PO 07/15/21 21:59 100 mg BID JAMAL Administration Furosemide 40 mg 06/16/21 10:00 Furosemide 40 Mg/4 Ml Vial IV 07/16/21 09:59 BID DIURETIC JAMAL Clindamycin HCl/Dextrose 600 mg in 50 mls @ 100 mls/hr 06/15/21 22:00 06/15/21 22:01 Clindamycin-D5w 600 Mg/50 Ml IV 07/15/21 21:59 100 mls/hr Q8HT JAMAL Administration Insulin Glargine 36 unit 06/15/21 22:00 06/15/21 22:00 Insulin Glargine 1 Unit SQ 07/15/21 21:59 36 unit HS JAMAL Administration Insulin Human Lispro 0 unit 06/15/21 18:04 Insulin Lispro 1 Unit SQ 07/15/21 18:03 UD PRN HYPERGLYCEMIA Potassium Chloride 20 meq 06/15/21 22:00 06/15/21 22:00 Potassium Chloride 10 Meq Tablet PO 07/15/21 21:59 20 meq BID JAMAL Administration Pregabalin 100 mg 06/15/21 22:00 06/15/21 22:09 Pregabalin 50 Mg Capsule PO 07/15/21 21:59 100 mg BID JAMAL Administration Simvastatin 20 mg 06/15/21 22:00 06/15/21 22:00 Simvastatin 20 Mg Tablet PO 07/15/21 21:59 20 mg HS JAMAL Administration Discontinued Medications Generic Name Dose Route Start Last Admin Trade Name Boaz PRN Reason Stop Dose Admin Furosemide 40 mg 06/15/21 18:03 06/15/21 19:25 Furosemide 40 Mg/4 Ml Vial IV 06/15/21 18:04 40 mg STAT ONE Administration Furosemide Confirm 06/15/21 19:25 Furosemide 40 Mg/4 Ml Vial Administered 06/15/21 19:26 Dose 40 mg .ROUTE .STK-MED ONE Clindamycin HCl/Dextrose 600 mg in 50 mls @ 100 mls/hr 06/15/21 18:03 06/15/21 19:29 Clindamycin-D5w 600 Mg/50 Ml IV 06/15/21 18:32 Infused STAT STA Infusion Pregabalin Confirm 06/15/21 21:56 Pregabalin 100 Mg Capsule Administered 06/15/21 21:57 Dose 100 mg .ROUTE .STK-MED ONE Lab/Rad Data: Laboratory Result Diagrams 06/15/21 17:10 06/15/21 17:10 Laboratory Results 06/15/21 06/15/21 06/15/21 Range/Units 18:31 17:10 17:10 WBC (4.0-10.5) K/mm3 RBC (4.1-5.4) M/mm3 Hgb (12.0-16.0) gm/dl Hct (35-47) % MCV (78-100) fl MCH (26-32) pg MCHC (32-36) g/dl RDW (11.5-14.0) % Plt Count (150-450) K/mm3 MPV (7.5-11.0) fl Gran % (36.0-66.0) % Eos # (Auto) (0-0.5) Absolute Lymphs (auto) (1.0-4.6) Absolute Monos (auto) (0.0-1.3) Lymphocytes % (24.0-44.0) % Monocytes % (0.0-12.0) % Eosinophils % (0.00-5.0) % Basophils % (0.0-0.4) % Absolute Granulocytes (1.4-6.9) Basophils # (0-0.4) PT 14.6 H (9.4-12.5) SECONDS INR 1.24 (0.8-3.0) APTT 35.5 (25.1-36.5) SECONDS Sodium (137-145) mmol/L Potassium (3.5-5.1) mmol/L Chloride (98-107) mmol/L Carbon Dioxide (22-30) mmol/L Anion Gap (5-15) MEQ/L BUN (7-17) mg/dL Creatinine (0.52-1.04) mg/dL Estimated GFR ML/MIN Glucose (74-106) mg/dL Lactic Acid (0.4-2.0) Calcium (8.4-10.2) mg/dL Total Bilirubin (0.2-1.3) mg/dL AST (14-36) U/L ALT (0-35) U/L Alkaline Phosphatase (38-126) U/L Troponin I < 0.012 (0.000-0.034) ng/mL NT-Pro-B Natriuret Pep (0-900) pg/mL Serum Total Protein (6.3-8.2) g/dL Albumin (3.5-5.0) g/dL Influenza Type A Ag NEGATIVE (NEGATIVE) Influenza Type B Ag NEGATIVE (NEGATIVE) RSV (PCR) NEGATIVE (Negative) SARS-CoV-2 (PCR) NEGATIVE (NEGATIVE) 06/15/21 06/15/21 06/15/21 Range/Units 17:10 17:10 16:46 WBC 7.5 (4.0-10.5) K/mm3 RBC 4.15 (4.1-5.4) M/mm3 Hgb 11.6 L (12.0-16.0) gm/dl Hct 38.7 (35-47) % MCV 93.3 (78-100) fl MCH 28.0 (26-32) pg MCHC 30.0 L (32-36) g/dl RDW 17.0 H (11.5-14.0) % Plt Count 143 L (150-450) K/mm3 MPV 12.4 H (7.5-11.0) fl Gran % 62.9 (36.0-66.0) % Eos # (Auto) 0.07 (0-0.5) Absolute Lymphs (auto) 1.97 (1.0-4.6) Absolute Monos (auto) 0.71 (0.0-1.3) Lymphocytes % 26.4 (24.0-44.0) % Monocytes % 9.5 (0.0-12.0) % Eosinophils % 0.9 (0.00-5.0) % Basophils % 0.3 (0.0-0.4) % Absolute Granulocytes 4.69 (1.4-6.9) Basophils # 0.02 (0-0.4) PT (9.4-12.5) SECONDS INR (0.8-3.0) APTT (25.1-36.5) SECONDS Sodium 143 (137-145) mmol/L Potassium 4.0 (3.5-5.1) mmol/L Chloride 107 (98-107) mmol/L Carbon Dioxide 33 H (22-30) mmol/L Anion Gap 7.3 (5-15) MEQ/L BUN 21 H (7-17) mg/dL Creatinine 1.27 H (0.52-1.04) mg/dL Estimated GFR 44.0 ML/MIN Glucose 193 H (74-106) mg/dL Lactic Acid 1.7 (0.4-2.0) Calcium 8.8 (8.4-10.2) mg/dL Total Bilirubin 0.50 (0.2-1.3) mg/dL AST 30 (14-36) U/L ALT 22 (0-35) U/L Alkaline Phosphatase 100 (38-126) U/L Troponin I (0.000-0.034) ng/mL NT-Pro-B Natriuret Pep 660 (0-900) pg/mL Serum Total Protein 6.5 (6.3-8.2) g/dL Albumin 3.8 (3.5-5.0) g/dL Influenza Type A Ag (NEGATIVE) Influenza Type B Ag (NEGATIVE) RSV (PCR) (Negative) SARS-CoV-2 (PCR) (NEGATIVE) - Progress Progress: improved Progress Note: 06/15/21 18:[address] Aiken 40mg IV Lasix 600mg IV Clindamycin Discussed with : Shelby Will see patient in: hospital (observation) Counseled pt/family regarding: lab results, diagnosis, need for follow-up, rad results - Departure Departure Disposition: Observation Clinical Impression: Cellulitis, CHF (congestive heart failure) Condition: Stable Critical Care Time: No
[2021-06-15 17:15] LABS: Absolute Neutrophil Ct (ANC) 4.69 (1.4-6.9); Basophil (Absolute #) 0.02 (0-0.4); Eosinophil % 0.9 % (0.00-5.0); Eosinophil (Absolute #) 0.07 (0-0.5); Hematocrit 38.7 % (35-47); Hemoglobin 11.6 gm/dl (12.0-16.0); Lymphocyte (Absolute #) 1.97 (1.0-4.6); Lymphocytes % 26.4 % (24.0-44.0); Mean Cell Volume 93.3 fl (78-100); Mean Platelet Volume 12.4 fl (7.5-11.0); Monocyte (Absolute #) 0.71 (0.0-1.3); Monocytes % 9.5 % (0.0-12.0); Neutrophil % 62.9 % (36.0-66.0); Platelet Count 143 K/mm3 (150-450); Red Blood Count 4.15 M/mm3 (4.1-5.4); White Blood Count 7.5 K/mm3 (4.0-10.5)
[2021-06-15 17:39] LABS: ALBUMIN 3.8 g/dL (3.5-5.0); ANION GAP 7.3 MEQ/L (5-15); BILIRUBIN,TOTAL 0.5 mg/dL (0.2-1.3); Calcium 8.8 mg/dL (8.4-10.2); Creatinine 1 1.27 mg/dL (0.52-1.04); Total Protein 6.5 g/dL (6.3-8.2)
[2021-06-15 17:42] LABS: INR 1.24 (0.8-3.0); PROTIME 14.6 SECONDS (9.4-12.5)
[2021-06-15 17:44] LABS: PTT 35.5 SECONDS (25.1-36.5)
[2021-06-15] MEDS ORDERED: Lasix 40 MG/4 ML IV ONE (18:03)
[2021-06-15] MEDS ORDERED: CLINDAMYCIN-D5W 600 MG/50 ML*** 600 MG/50 ML BAG IV STA (18:03)
[2021-06-15] MEDS ORDERED: HUMALOG SQ PRN (18:04)
[2021-06-15] MEDS ORDERED: CLINDAMYCIN-D5W 600 MG/50 ML*** 600 MG/50 ML BAG IV ONE (18:52)
[2021-06-15 19:11] LABS: INFLUENZA A NEGATIVE (NEGATIVE); INFLUENZA B NEGATIVE (NEGATIVE); RESPIRATORY SYNCTIAL VIRUS NEGATIVE (Negative); SARS-CoV-2 Xpert Express NEGATIVE (NEGATIVE)
[2021-06-15] MEDS ORDERED: Lasix 40 MG/4 ML ONE (19:25)
[2021-06-15] MEDS ORDERED: LYRICA 100MG ONE (21:56)
[2021-06-15] MEDS: ZYLOPRIM 100 MG PO SCH (22:00)
[2021-06-15] MEDS: ZOCOR 20MG PO SCH (22:00)
[2021-06-15] MEDS: Lantus Insulin SQ SCH (22:00)
[2021-06-15] MEDS ORDERED: Lyrica 50MG PO SCH (22:00)
[2021-06-15] MEDS: Klor Con 10 MEQ PO SCH (22:00)
[2021-06-15] MEDS: CLINDAMYCIN-D5W 600 MG/50 ML*** 600 MG/50 ML BAG IV SCH (22:01)
--- NOTE | 2021-06-15 22:21 | XRAY ---
Indication: Dyspnea. Leg cellulitis. Comparison: February 24, 2020. Portable chest again demonstrates mild left upper lobe subsegmental atelectasis/scarring. No focal infiltrate, consolidation, or large effusion. Heart is now borderline enlarged. Bony thorax intact again with mild osteopenia and degenerative changes. Again incidental left chest electronic monitoring device. Impression: Nonacute chest with chronic features.
[2021-06-16] MEDS: CLINDAMYCIN-D5W 600 MG/50 ML*** 600 MG/50 ML BAG IV SCH ×3 (06:11→22:28)
[2021-06-16 06:17] LABS: Hematocrit 35.4 % (35-47); Hemoglobin 10.6 gm/dl (12.0-16.0); Mean Cell Volume 93.4 fl (78-100); Mean Corpuscular Hgb Concent. 29.9 g/dl (32-36); Mean Platelet Volume 12.8 fl (7.5-11.0); Platelet Count 140 K/mm3 (150-450); Red Blood Count 3.79 M/mm3 (4.1-5.4); Red Cell Distribution Width 17.3 % (11.5-14.0); White Blood Count 6.7 K/mm3 (4.0-10.5)
[2021-06-16 06:40] LABS: ANION GAP 8.4 MEQ/L (5-15); Calcium 8.6 mg/dL (8.4-10.2); Creatinine 1 1.22 mg/dL (0.52-1.04); Potassium 4.3 mmol/L (3.5-5.1)
[2021-06-16] MEDS: Klor Con 10 MEQ PO SCH ×2 (10:12→22:27)
[2021-06-16] MEDS: LYRICA 100MG PO SCH ×2 (10:12→22:27)
[2021-06-16] MEDS: Lasix 40 MG/4 ML IV SCH ×2 (10:13→17:17)
[2021-06-16] MEDS: ZYLOPRIM 100 MG PO SCH ×2 (10:13→22:27)
[2021-06-16 10:55] LABS: TSH, 3RD Generation 3.26 mIU/L (0.47-4.68)
[2021-06-16] MEDS ORDERED: HUMALOG SQ ONE (12:41)
[2021-06-16] MEDS ORDERED: Lasix 40 MG/4 ML IV ONE (13:30)
[2021-06-16] MEDS ORDERED: TYLENOL 325 MG PO PRN (14:08)
[2021-06-16] MEDS ORDERED: HUMALOG SQ PRN (14:30)
[2021-06-16] MEDS: Aricept 10 MG PO SCH (15:27)
[2021-06-16] MEDS: Imdur 30 MG PO SCH (15:27)
[2021-06-16] MEDS: ZOLOFT 50 MG TABLET PO SCH (15:27)
[2021-06-16] MEDS: Cozaar 50 MG PO SCH (15:27)
[2021-06-16] MEDS: Cordarone 200 MG PO SCH (15:27)
[2021-06-16] MEDS: ECOTRIN 81 MG PO SCH (15:27)
[2021-06-16] MEDS: Protonix 40MG Tablet PO SCH (15:27)
[2021-06-16] MEDS: ELIQUIS 2.5 MG TABLET PO SCH (15:27)
[2021-06-16] MEDS: Coreg 3.125 MG PO SCH (15:28)
[2021-06-16] MEDS: NORVASC 5 MG PO SCH (15:28)
[2021-06-16] MEDS: VITAMIN D PO SCH (15:28)
[2021-06-16] MEDS ORDERED: NON-FORMULARY ITEM (Insulin Lispro 1 UNIT Ml) SQ SCH (17:00)
[2021-06-16] MEDS: HUMALOG SQ SCH (17:46)
[2021-06-16] MEDS: ZOCOR 20MG PO SCH (22:27)
[2021-06-16] MEDS: Lantus Insulin SQ SCH (22:28)
[2021-06-17] MEDS: CLINDAMYCIN-D5W 600 MG/50 ML*** 600 MG/50 ML BAG IV SCH ×3 (05:53→21:13)
[2021-06-17 05:58] LABS: Absolute Neutrophil Ct (ANC) 4.73 (1.4-6.9); Basophil (Absolute #) 0.02 (0-0.4); Eosinophil (Absolute #) 0.26 (0-0.5); Hematocrit 35.1 % (35-47); Hemoglobin 10.6 gm/dl (12.0-16.0); Lymphocyte (Absolute #) 2.84 (1.0-4.6); Mean Cell Volume 92.9 fl (78-100); Mean Corpuscular Hgb Concent. 30.2 g/dl (32-36); Mean Platelet Volume 12.8 fl (7.5-11.0); Monocyte (Absolute #) 0.76 (0.0-1.3); Monocytes % 8.8 % (0.0-12.0); Platelet Count 151 K/mm3 (150-450); Red Blood Count 3.78 M/mm3 (4.1-5.4); Red Cell Distribution Width 17.3 % (11.5-14.0); White Blood Count 8.6 K/mm3 (4.0-10.5)
[2021-06-17 06:25] LABS: ALBUMIN 3.4 g/dL (3.5-5.0); ANION GAP 7.9 MEQ/L (5-15); BILIRUBIN,TOTAL 0.6 mg/dL (0.2-1.3); Calcium 8.6 mg/dL (8.4-10.2); Creatinine 1 1.73 mg/dL (0.52-1.04); EST GLOMERULAR FILTRATION RATE 30.8 ML/MIN; Potassium 4.6 mmol/L (3.5-5.1)
[2021-06-17] MEDS ORDERED: NON-FORMULARY ITEM (Insulin Lispro 1 UNIT Ml) SQ SCH ×2 (08:00→12:00)
[2021-06-17] MEDS: HUMALOG SQ SCH ×3 (08:21→16:39)
[2021-06-17] MEDS: NORVASC 5 MG PO SCH (08:53)
[2021-06-17] MEDS: Imdur 30 MG PO SCH (08:53)
[2021-06-17] MEDS: Klor Con 10 MEQ PO SCH ×2 (08:53→21:13)
[2021-06-17] MEDS: VITAMIN D PO SCH (08:53)
[2021-06-17] MEDS: ECOTRIN 81 MG PO SCH (08:53)
[2021-06-17] MEDS: Cozaar 50 MG PO SCH (08:53)
[2021-06-17] MEDS: Aricept 10 MG PO SCH (08:53)
[2021-06-17] MEDS: Protonix 40MG Tablet PO SCH (08:53)
[2021-06-17] MEDS: Lasix 40 MG/4 ML IV SCH ×2 (08:53→16:36)
[2021-06-17] MEDS: LYRICA 100MG PO SCH (08:54)
[2021-06-17] MEDS: Coreg 3.125 MG PO SCH (08:54)
[2021-06-17] MEDS: ELIQUIS 2.5 MG TABLET PO SCH (08:54)
[2021-06-17] MEDS: Cordarone 200 MG PO SCH (08:54)
[2021-06-17] MEDS: ZYLOPRIM 100 MG PO SCH (08:54)
[2021-06-17] MEDS: ZOLOFT 50 MG TABLET PO SCH (08:54)
[2021-06-17] MEDS ORDERED: NON-FORMULARY ITEM (Losartan Potassium [Losartan Potassium] 100 MG Tablet) PO SCH (10:00)
[2021-06-17] MEDS ORDERED: NON-FORMULARY ITEM (Amlodipine Besylate [Amlodipine Besylate] 2.5 MG Tablet) PO SCH (10:00)
[2021-06-17] MEDS ORDERED: NON-FORMULARY ITEM (Cholecalciferol (Vitamin D3) [Vitamin D3] 1,000 UNIT Capsule) PO SCH (10:00)
[2021-06-17] MEDS ORDERED: NON-FORMULARY ITEM (Apixaban*** [Eliquis 5 Mg Tablet***] 5 MG Tablet) PO SCH (10:00)
[2021-06-17] MEDS ORDERED: Cyanocobalamin B-12 1000 MCG/ML SQ ONE (11:55)
--- NOTE | 2021-06-17 12:13 | PCM.HP ---
History of Present Illness - Chief Complaint Chief Complaint: cellulitis Date: 06/16/21 History of Present Illness: is a 71 year old female patient of Dr Claros who was admitted through ER for treatment of cellulitis LLE and CHF. C/O progressive increase in sob and swelling in both lower legs. States Hx left ankle fx and surgery left foot FEB [address] Sheppard. PMHx HTN,CHF,HLD,DM2,CKD,Gout,arthritis,COPD,sleep apnea and morbid obesity. - Review of Systems Constitutional: Lethargy Eyes: No Symptoms Ears, Nose, & Throat: No Symptoms Respiratory: Short Of Breath Cardiac: Edema (no chest pain) Abdominal/Gastrointestinal: No Symptoms Genitourinary Symptoms: No Symptoms Musculoskeletal: Arthralgias Skin: Cellulitis (LLE red and tender with some clear drainage) Psychological: No Symptoms Endocrine: Other (DM2 on Insulin but not on diabetic diet) Medications & Allergies Home Medications: Home Medication List Allopurinol 100 mg [Zyloprim 100 mg] 100 mg PO BID 11/18/18 [History Confirmed 06/15/21] Amiodarone HCl 200 mg [Cordarone 200 MG] 200 mg PO DAILY 11/18/18 [History Confirmed 06/15/21] Isosorbide Mononitrate 30 mg [Imdur 30 MG] 30 mg PO DAILY 11/18/18 [History Confirmed 06/15/21] PANTOPRAZOLE 40 mg Tablet [Protonix 40MG Tablet] 40 mg PO DAILY 11/18/18 [History Confirmed 06/15/21] Sertraline HCl 50 mg [Zoloft 50 mg Tablet] 50 mg PO DAILY 11/18/18 [History Confirmed 06/15/21] Insulin Glargine [Lantus Insulin] 36 unit SQ QHS 03/23/19 [History Confirmed 06/15/21] Insulin Lispro [Humalog] 20 unit SQ BREAKFAST 03/23/19 [History Confirmed 06/15/21] Insulin Lispro [Humalog] 16 unit SQ DINNER 11/03/19 [History Confirmed 06/15/21] Insulin Lispro [Humalog] 20 unit SQ LUNCH 11/03/19 [History Confirmed 06/15/21] Donepezil HCl 10 mg [Aricept 10 MG] 1 tab PO DAILY 02/09/20 [History Confirmed 06/15/21] Acetaminophen 325 mg [Tylenol 325 mg] 650 mg PO Q4HPRN PRN 02/24/20 [History Confirmed 06/15/21] Aspirin 81 mg PO DAILY 02/19/21 [History Confirmed 06/15/21] Carvedilol 3.125 mg [Coreg 3.125 MG] 3.125 mg PO DAILY 02/19/21 [History Confirmed 06/15/21] Cholecalciferol (Vitamin D3) [Vitamin D3] 1,000 units PO DAILY 02/19/21 [History Confirmed 06/15/21] Multivit-Minerals/Folic/Ginkgo [One Daily For Women 50+ Adv Tb] 1 tab PO DAILY 02/19/21 [History Confirmed 06/15/21] Rosuvastatin Calcium 10 mg PO HS 02/19/21 [History Confirmed 06/15/21] Amlodipine Besylate 2.5 mg PO DAILY 06/15/21 [History Confirmed 06/15/21] Apixaban [Eliquis 5 mg Tablet] 5 mg PO DAILY 06/15/21 [History Confirmed 06/15/21] Losartan Potassium 100 mg PO DAILY 06/15/21 [History Confirmed 06/15/21] Potassium Chloride 20 meq PO BID 06/15/21 [History Confirmed 06/15/21] Pregabalin 100 mg PO BID 06/15/21 [History Confirmed 06/15/21] Torsemide 20 mg [Demadex 20 mg] 40 mg PO BID 06/15/21 [History Confirmed 06/15/21] Allergies/Adverse Reactions: Allergies Allergy/AdvReac Type Severity Reaction Status Date / Time morphine Allergy Severe anaphylaxis Verified 06/15/21 16:27 adhesive Allergy Mild Blisters Verified 06/15/21 16:27 aspirin Allergy Difficulty Verified 06/15/21 16:27 Breathing Penicillins Allergy Rash Verified 06/15/21 16:27 povidone-iodine Allergy BLISTERES Verified 06/15/21 16:27 [From Betadine] soap [From Betadine] Allergy Blisters Verified 06/15/21 16:27 - Past Medical History Past Medical History: Yes Neurological History: Peripheral Neuropathy ENT History: No Pertinent History Cardiac History: Angina, Arrhythmia, Congestive Heart Failure, High Cholesterol, Hypertension Respiratory History: COPD, Pneumonia Endocrine Medical History: Diabetes Type II Musculoskelatal History: Arthritis, Fractures GI Medical History: Diverticulitis, Other History: Other Pyscho-Social History: No Pertinent History Reproductive Disorders: No Pertinent History Comment: Impaired kidney function, HYPOKALEMIA, LEFT ANKLE FRACTURE 05/07/19, C DIFF - Past Surgical History Past Surgical History: Yes Neuro Surgical History: No Pertinent History Cardiac History: No Pertinent History Respiratory Surgery: No Pertinent History GI Surgical History: Appendectomy Genitourinary Surgical Hx: No Pertinent History Musculskeletal Surgical Hx: Orthopedic Surgery Female Surgical History: Hysterectomy Other Surgical History: Multiple hand surgeries, - Social History Smoking Status: Former smoker How long have you smoked: 1 year Exposure to second hand smoke: No Alcohol: None Drug Use: none Significant Family History: diabetes, hypertension - Physical Exam Vital Signs: Vital Signs - 24 hr Temp Pulse Resp BP Pulse Ox 06/17/21 11:51 97.7 F 54 L 20 129/62 90 L 06/17/21 07:41 97.8 F 45 L 18 126/60 92 L 06/17/21 07:28 93 L 06/17/21 05:00 98 F 45 L 20 110/53 88 L 06/17/21 00:00 98.7 F 63 16 111/55 91 L 06/16/21 20:00 52 L 20 101/51 92 L 06/16/21 19:56 90 L 06/16/21 16:00 98.4 F 52 L 23 171/70 94 L 06/16/21 12:00 97.8 F 53 L 21 152/67 94 L General Appearance: no apparent distress Neurologic Exam: alert, oriented x 3, cooperative, normal mood/affect Eye Exam: eyes nml inspection Ears, Nose, Throat Exam: normal ENT inspection Neck Exam: normal inspection Respiratory Exam: diminished breath sounds Cardiovascular Exam: bradycardia (rate 60,regular), other Gastrointestinal/Abdomen Exam: soft, normal bowel sounds (nontender), distention (full bladder-brooks with 600cc clear urine) Pelvic Exam: not done Rectal Exam: not done Back Exam: normal inspection Extremity Exam: swelling, tenderness (red and increased temp LLE ant tibia area,no odor,dry presently), other (bilateral LE with pitting edema 2-3+/4 . Calves are soft and nontender) Wound Assessment: Skin/Wound Assessment Wound/Incision Assessment Start: 06/15/21 21:24 Text: Status: Active Freq: Q6H Protocol: Document 06/17/21 10:00 MW (Rec: 06/17/21 11:48 MW [id number]) Wound/Incision Assessment Left Lower Other Wound Assessment Shift Assessment Wound Type cellulitis Drainage Amount Minimal Drainage Description Serous Drainage Odor None/Absent Surrounding Tissue Bright Red,Edematous,Weeping Comment LLE, open to air. Wound Photo Photo Taken No Results - Labs Lab/Micro Results: Lab Results-Last 24 Hours 06/16/21 06/16/21 06/16/21 Range/Units 11:41 16:04 22:34 WBC (4.0-10.5) K/mm3 RBC (4.1-5.4) M/mm3 Hgb (12.0-16.0) gm/dl Hct (35-47) % MCV (78-100) fl MCH (26-32) pg MCHC (32-36) g/dl RDW (11.5-14.0) % Plt Count (150-450) K/mm3 MPV (7.5-11.0) fl Gran % (36.0-66.0) % Eos # (Auto) (0-0.5) Absolute Lymphs (auto) (1.0-4.6) Absolute Monos (auto) (0.0-1.3) Lymphocytes % (24.0-44.0) % Monocytes % (0.0-12.0) % Eosinophils % (0.00-5.0) % Basophils % (0.0-0.4) % Absolute Granulocytes (1.4-6.9) Basophils # (0-0.4) Sodium (137-145) mmol/L Potassium (3.5-5.1) mmol/L Chloride (98-107) mmol/L Carbon Dioxide (22-30) mmol/L Anion Gap (5-15) MEQ/L BUN (7-17) mg/dL Creatinine (0.52-1.04) mg/dL Estimated GFR ML/MIN Glucose (74-106) mg/dL POC Glucometer 253 H 108 H 141 H (74 to 106) mg/dL Hemoglobin A1c (4.5-6.0) % Calcium (8.4-10.2) mg/dL Total Bilirubin (0.2-1.3) mg/dL AST (14-36) U/L ALT (0-35) U/L Alkaline Phosphatase (38-126) U/L NT-Pro-B Natriuret Pep (0-900) pg/mL Serum Total Protein (6.3-8.2) g/dL Albumin (3.5-5.0) g/dL 06/17/21 06/17/21 06/17/21 Range/Units 05:32 05:32 05:32 WBC 8.6 (4.0-10.5) K/mm3 RBC 3.78 L (4.1-5.4) M/mm3 Hgb 10.6 L (12.0-16.0) gm/dl Hct 35.1 (35-47) % MCV 92.9 (78-100) fl MCH 28.0 (26-32) pg MCHC 30.2 L (32-36) g/dl RDW 17.3 H (11.5-14.0) % Plt Count 151 (150-450) K/mm3 MPV 12.8 H (7.5-11.0) fl Gran % 55.0 (36.0-66.0) % Eos # (Auto) 0.26 (0-0.5) Absolute Lymphs (auto) 2.84 (1.0-4.6) Absolute Monos (auto) 0.76 (0.0-1.3) Lymphocytes % 33.0 (24.0-44.0) % Monocytes % 8.8 (0.0-12.0) % Eosinophils % 3.0 (0.00-5.0) % Basophils % 0.2 (0.0-0.4) % Absolute Granulocytes 4.73 (1.4-6.9) Basophils # 0.02 (0-0.4) Sodium 139 (137-145) mmol/L Potassium 4.6 (3.5-5.1) mmol/L Chloride 102 (98-107) mmol/L Carbon Dioxide 34 H (22-30) mmol/L Anion Gap 7.9 (5-15) MEQ/L BUN 24 H (7-17) mg/dL Creatinine 1.73 H (0.52-1.04) mg/dL Estimated GFR 30.8 ML/MIN Glucose 109 H (74-106) mg/dL POC Glucometer (74 to 106) mg/dL Hemoglobin A1c 7.69 H (4.5-6.0) % Calcium 8.6 (8.4-10.2) mg/dL Total Bilirubin 0.60 (0.2-1.3) mg/dL AST 23 (14-36) U/L ALT 19 (0-35) U/L Alkaline Phosphatase 74 (38-126) U/L NT-Pro-B Natriuret Pep 1140 H (0-900) pg/mL Serum Total Protein 6.0 L (6.3-8.2) g/dL Albumin 3.4 L (3.5-5.0) g/dL 06/17/21 06/17/21 Range/Units 06:54 11:28 WBC (4.0-10.5) K/mm3 RBC (4.1-5.4) M/mm3 Hgb (12.0-16.0) gm/dl Hct (35-47) % MCV (78-100) fl MCH (26-32) pg MCHC (32-36) g/dl RDW (11.5-14.0) % Plt Count (150-450) K/mm3 MPV (7.5-11.0) fl Gran % (36.0-66.0) % Eos # (Auto) (0-0.5) Absolute Lymphs (auto) (1.0-4.6) Absolute Monos (auto) (0.0-1.3) Lymphocytes % (24.0-44.0) % Monocytes % (0.0-12.0) % Eosinophils % (0.00-5.0) % Basophils % (0.0-0.4) % Absolute Granulocytes (1.4-6.9) Basophils # (0-0.4) Sodium (137-145) mmol/L Potassium (3.5-5.1) mmol/L Chloride (98-107) mmol/L Carbon Dioxide (22-30) mmol/L Anion Gap (5-15) MEQ/L BUN (7-17) mg/dL Creatinine (0.52-1.04) mg/dL Estimated GFR ML/MIN Glucose (74-106) mg/dL POC Glucometer 101 118 H (74 to 106) mg/dL Hemoglobin A1c (4.5-6.0) % Calcium (8.4-10.2) mg/dL Total Bilirubin (0.2-1.3) mg/dL AST (14-36) U/L ALT (0-35) U/L Alkaline Phosphatase (38-126) U/L NT-Pro-B Natriuret Pep (0-900) pg/mL Serum Total Protein (6.3-8.2) g/dL Albumin (3.5-5.0) g/dL Microbiology 06/15/21 18:35 Wound Culture - Preliminary Leg - Left Lower NO GROWTH TO DATE 06/15/21 18:55 Blood Culture - Preliminary Blood NO GROWTH TO DATE 06/15/21 18:46 Blood Culture - Preliminary Blood NO GROWTH TO DATE Accuchecks Date 06/17/21 Date 06/17/21 Date 06/16/21 Date 06/16/21 Time 11:30 Time 06:54 Time 16:00 Time 12:20 - Radiology Impressions Radiology Exams & Impressions: Radiology Procedures Category Date Time Status CHEST 1 VIEW (PORTABLE) Stat Exams 06/15/21 17:23 Completed Assessment/Plan (1) Cellulitis Current Visit: Yes Status: Acute Qualifiers: Site of cellulitis: extremity Site of cellulitis of extremity: lower extremity Laterality: left Qualified Code(s): L03.116 - Cellulitis of left lower limb Assessment & Plan: started IV clindamycin in ER Code(s): L03.90 - CELLULITIS, UNSPECIFIED (2) CHF (congestive heart failure) Current Visit: Yes Status: Acute Assessment & Plan: acute on chronic-diuresis,monitor Code(s): I50.9 - HEART FAILURE, UNSPECIFIED (3) Venous stasis dermatitis of both lower extremities Current Visit: Yes Status: Chronic Assessment & Plan: Podiatry to eval Code(s): I87.2 - VENOUS INSUFFICIENCY (CHRONIC) (PERIPHERAL) (4) Acute kidney injury superimposed on CKD Current Visit: No Status: Acute Assessment & Plan: IV fluids monitor- Med adjustments per Pharmacist Code(s): N17.9 - ACUTE KIDNEY FAILURE, UNSPECIFIED; N18.9 - CHRONIC KIDNEY DISEASE, UNSPECIFIED (5) Diabetes mellitus, insulin dependent (IDDM), uncontrolled Current Visit: Yes Status: Chronic Assessment & Plan: not on diet Code(s): QPP7275 - (6) COPD (chronic obstructive pulmonary disease) Current Visit: Yes Status: Chronic (7) Sleep apnea Current Visit: Yes Status: Chronic Assessment & Plan: Cpap continue Code(s): G47.30 - SLEEP APNEA, UNSPECIFIED (8) HTN (hypertension) Current Visit: Yes Status: Chronic Assessment & Plan: monitor Code(s): I10 - ESSENTIAL (PRIMARY) HYPERTENSION
--- NOTE | 2021-06-17 12:15 | PCM.NOTE ---
Date and Time: 06/17/21 1213 Subjective Assessment: Patient c/o continued LLE tenderness is on Clidamycin IV for cellulitis. SOB if up but is comfortable up in chair for lunch today. C/O feeling cold chronic but worse. TSH and B12 tested. Objective Exam General Appearance: no apparent distress Neurologic Exam: alert, oriented x 3, cooperative Skin Exam: normal color, warm, dry Wound Assessment: Skin/Wound Assessment Wound/Incision Assessment Start: 06/15/21 21:24 Text: Status: Active Freq: Q6H Protocol: Document 06/17/21 10:00 MW (Rec: 06/17/21 11:48 MW [id number]) Wound/Incision Assessment Left Lower Other Wound Assessment Shift Assessment Wound Type cellulitis Drainage Amount Minimal Drainage Description Serous Drainage Odor None/Absent Surrounding Tissue Bright Red,Edematous,Weeping Comment LLE, open to air. Wound Photo Photo Taken No Respiratory Exam: diminished breath sounds Cardiovascular Exam: bradycardia (60 reg) Gastrointestinal/Abdomen Exam: soft (nontender) Extremity Exam: tenderness (LLE tenderand red,edema bilaterally) OBJECTIVE DATA Vital Signs: Vital Signs - 24 hr Temp Pulse Resp BP Pulse Ox 06/17/21 11:51 97.7 F 54 L 20 129/62 90 L 06/17/21 07:41 97.8 F 45 L 18 126/60 92 L 06/17/21 07:28 93 L 06/17/21 05:00 98 F 45 L 20 110/53 88 L 06/17/21 00:00 98.7 F 63 16 111/55 91 L 06/16/21 20:00 52 L 20 101/51 92 L 06/16/21 19:56 90 L 06/16/21 16:00 98.4 F 52 L 23 171/70 94 L 06/16/21 12:00 97.8 F 53 L 21 152/67 94 L Pain Assessment - Last Documented Pain Intensity 0 Intake and Output: Intake & Output 06/15/21 06/16/21 06/17/21 06/18/21 10:59 10:59 11:59 11:59 Intake Total Output Total Balance Weight Lab Results: Lab Results-Last 24 Hours 06/16/21 06/16/21 06/16/21 Range/Units 11:41 16:04 22:34 WBC (4.0-10.5) K/mm3 RBC (4.1-5.4) M/mm3 Hgb (12.0-16.0) gm/dl Hct (35-47) % MCV (78-100) fl MCH (26-32) pg MCHC (32-36) g/dl RDW (11.5-14.0) % Plt Count (150-450) K/mm3 MPV (7.5-11.0) fl Gran % (36.0-66.0) % Eos # (Auto) (0-0.5) Absolute Lymphs (auto) (1.0-4.6) Absolute Monos (auto) (0.0-1.3) Lymphocytes % (24.0-44.0) % Monocytes % (0.0-12.0) % Eosinophils % (0.00-5.0) % Basophils % (0.0-0.4) % Absolute Granulocytes (1.4-6.9) Basophils # (0-0.4) Sodium (137-145) mmol/L Potassium (3.5-5.1) mmol/L Chloride (98-107) mmol/L Carbon Dioxide (22-30) mmol/L Anion Gap (5-15) MEQ/L BUN (7-17) mg/dL Creatinine (0.52-1.04) mg/dL Estimated GFR ML/MIN Glucose (74-106) mg/dL POC Glucometer 253 H 108 H 141 H (74 to 106) mg/dL Hemoglobin A1c (4.5-6.0) % Calcium (8.4-10.2) mg/dL Total Bilirubin (0.2-1.3) mg/dL AST (14-36) U/L ALT (0-35) U/L Alkaline Phosphatase (38-126) U/L NT-Pro-B Natriuret Pep (0-900) pg/mL Serum Total Protein (6.3-8.2) g/dL Albumin (3.5-5.0) g/dL 06/17/21 06/17/21 06/17/21 Range/Units 05:32 05:32 05:32 WBC 8.6 (4.0-10.5) K/mm3 RBC 3.78 L (4.1-5.4) M/mm3 Hgb 10.6 L (12.0-16.0) gm/dl Hct 35.1 (35-47) % MCV 92.9 (78-100) fl MCH 28.0 (26-32) pg MCHC 30.2 L (32-36) g/dl RDW 17.3 H (11.5-14.0) % Plt Count 151 (150-450) K/mm3 MPV 12.8 H (7.5-11.0) fl Gran % 55.0 (36.0-66.0) % Eos # (Auto) 0.26 (0-0.5) Absolute Lymphs (auto) 2.84 (1.0-4.6) Absolute Monos (auto) 0.76 (0.0-1.3) Lymphocytes % 33.0 (24.0-44.0) % Monocytes % 8.8 (0.0-12.0) % Eosinophils % 3.0 (0.00-5.0) % Basophils % 0.2 (0.0-0.4) % Absolute Granulocytes 4.73 (1.4-6.9) Basophils # 0.02 (0-0.4) Sodium 139 (137-145) mmol/L Potassium 4.6 (3.5-5.1) mmol/L Chloride 102 (98-107) mmol/L Carbon Dioxide 34 H (22-30) mmol/L Anion Gap 7.9 (5-15) MEQ/L BUN 24 H (7-17) mg/dL Creatinine 1.73 H (0.52-1.04) mg/dL Estimated GFR 30.8 ML/MIN Glucose 109 H (74-106) mg/dL POC Glucometer (74 to 106) mg/dL Hemoglobin A1c 7.69 H (4.5-6.0) % Calcium 8.6 (8.4-10.2) mg/dL Total Bilirubin 0.60 (0.2-1.3) mg/dL AST 23 (14-36) U/L ALT 19 (0-35) U/L Alkaline Phosphatase 74 (38-126) U/L NT-Pro-B Natriuret Pep 1140 H (0-900) pg/mL Serum Total Protein 6.0 L (6.3-8.2) g/dL Albumin 3.4 L (3.5-5.0) g/dL 06/17/21 06/17/21 Range/Units 06:54 11:28 WBC (4.0-10.5) K/mm3 RBC (4.1-5.4) M/mm3 Hgb (12.0-16.0) gm/dl Hct (35-47) % MCV (78-100) fl MCH (26-32) pg MCHC (32-36) g/dl RDW (11.5-14.0) % Plt Count (150-450) K/mm3 MPV (7.5-11.0) fl Gran % (36.0-66.0) % Eos # (Auto) (0-0.5) Absolute Lymphs (auto) (1.0-4.6) Absolute Monos (auto) (0.0-1.3) Lymphocytes % (24.0-44.0) % Monocytes % (0.0-12.0) % Eosinophils % (0.00-5.0) % Basophils % (0.0-0.4) % Absolute Granulocytes (1.4-6.9) Basophils # (0-0.4) Sodium (137-145) mmol/L Potassium (3.5-5.1) mmol/L Chloride (98-107) mmol/L Carbon Dioxide (22-30) mmol/L Anion Gap (5-15) MEQ/L BUN (7-17) mg/dL Creatinine (0.52-1.04) mg/dL Estimated GFR ML/MIN Glucose (74-106) mg/dL POC Glucometer 101 118 H (74 to 106) mg/dL Hemoglobin A1c (4.5-6.0) % Calcium (8.4-10.2) mg/dL Total Bilirubin (0.2-1.3) mg/dL AST (14-36) U/L ALT (0-35) U/L Alkaline Phosphatase (38-126) U/L NT-Pro-B Natriuret Pep (0-900) pg/mL Serum Total Protein (6.3-8.2) g/dL Albumin (3.5-5.0) g/dL Radiology Exams: Radiology Procedures Category Date Time Status CHEST 1 VIEW (PORTABLE) Stat Exams 06/15/21 17:23 Completed Multi-Disciplinary Progress Notes: Multi-Disciplinary Progress Notes 06/16/21 19:59 Respiratory Note by Jewel Lauren WHEN I ENTERED PT RM SHE WAS ASLEEP ON 2LPM NC. I PLACED PT ON HER CPAP OF 14CM H2O AND 2LPM O2 INLINE AND PT SATS WERE 84%. I TITRATED PT UP TO 4LPM INLINE TO MAINTAIN A SAT OF 90%. I GAVE PT A SMALL MASK IT IS WHAT SHE WEARS AT AND IS MORE COMFORTABLE WITH, ADDED HUMIDITY, AND INFORMED NURSING. WILL CONTINUE TO MONITOR. Initialized on 06/16/21 19:59 - END OF NOTE Assessment/Plan (1) Cellulitis Current Visit: Yes Status: Acute Qualifiers: Site of cellulitis: extremity Site of cellulitis of extremity: lower e xtremity Laterality: left Qualified Code(s): L03.116 - Cellulitis of left lower limb Assessment & Plan: continue present care-Podiatry to consult tomorrow Code(s): L03.90 - CELLULITIS, UNSPECIFIED (2) CHF (congestive heart failure) Current Visit: Yes Status: Chronic Assessment & Plan: continue present care Code(s): I50.9 - HEART FAILURE, UNSPECIFIED
[2021-06-17] MEDS ORDERED: SYNTHROID 25 MCG PO ONE (14:00)
[2021-06-17] MEDS: LYRICA 75 MG CAP PO SCH (21:13)
[2021-06-17] MEDS: ZOCOR 20MG PO SCH (21:14)
[2021-06-17] MEDS: Lantus Insulin SQ SCH (21:54)
[2021-06-18] MEDS: CLINDAMYCIN-D5W 600 MG/50 ML*** 600 MG/50 ML BAG IV SCH ×2 (06:20→14:46)
[2021-06-18] MEDS ORDERED: SYNTHROID 25 MCG PO SCH (07:00)
--- NOTE | 2021-06-18 08:57 | PCM.NOTE ---
Date and Time: 06/18/21 0852 Subjective Assessment: Pt is still having SOB. Took her CPap off this morning and aide found her with O2 sat of 83% so put her back on 2L NC. At home pt just wearing O2 at night. Pt lives with her son and his . She is dom po. Up to bathroom with walker. - Review of Systems Constitutional: No Fever Respiratory: Short Of Breath Objective Exam General Appearance: no apparent distress, alert Neurologic Exam: oriented x 3, cooperative Skin Exam: warm, dry Wound Assessment: Skin/Wound Assessment Wound/Incision Assessment Start: 06/15/21 21:24 Text: Status: Active Freq: Q6H Protocol: Document 06/18/21 04:00 TC (Rec: 06/18/21 04:30 TC [id number]) Wound/Incision Assessment Left Lower Other Wound Assessment Shift Assessment Wound Type cellulitis Drainage Amount Minimal Drainage Description Serous Drainage Odor None/Absent Surrounding Tissue [place],Bright Red,Edematous, Weeping Wound Photo Photo Taken No Eye Exam: eyes nml inspection Ears, Nose, Throat Exam: moist mucous membranes Respiratory Exam: diminished breath sounds (good air exchange), No crackles/rales, No rhonchi, No wheezing Cardiovascular Exam: regular rate/rhythm, normal heart sounds, No murmur Gastrointestinal/Abdomen Exam: soft, normal bowel sounds, tenderness (LLQ), distention (morbidly obese), No mass, No guarding, No rebound Extremity Exam: other (RLE without erythema. LLE mild erythema anteriorly over approx 5x6cm area, with two small (approx 5mm) defects.) Back Exam: normal inspection, No rash OBJECTIVE DATA Vital Signs: Vital Signs - 24 hr Temp Pulse Resp BP Pulse Ox 06/18/21 07:57 97.5 F 50 L 19 134/60 93 L 06/18/21 04:46 97.4 F 46 L 18 131/56 88 L 06/17/21 23:32 97.8 F 46 L 20 142/63 90 L 06/17/21 19:52 90 L 06/17/21 19:10 98.8 F 63 21 129/55 92 L 06/17/21 16:47 97.7 F 54 L 21 114/57 06/17/21 11:51 97.7 F 54 L 20 129/62 90 L Pain Assessment - Last Documented Pain Intensity 3 Pain Scale Used 0-10 Pain Scale Intake and Output: Intake & Output 06/15/21 06/16/21 06/17/21 06/18/21 10:59 10:59 11:59 11:59 Intake Total 1220 Output Total 1150 Balance 70 Weight 127 kg Lab Results: Lab Results-Last 24 Hours 06/17/21 06/17/21 06/17/21 Range/Units 05:52 11:28 16:33 POC Glucometer 118 H 178 H (74 to 106) mg/dL Free T3 pg/mL 2.96 (2.77-5.27) pg/mL 06/17/21 06/18/21 Range/Units 20:17 07:07 POC Glucometer 75 126 H (74 to 106) mg/dL Free T3 pg/mL (2.77-5.27) pg/mL Assessment/Plan (1) Cellulitis Current Visit: Yes Status: Acute Qualifiers: Site of cellulitis: extremity Site of cellulitis of extremity: lower extrem ity Laterality: left Qualified Code(s): L03.116 - Cellulitis of left lower limb Assessment & Plan: On clindamycin 600mg IV q8h, day #4. Was bilateral at admission, now LLE. She is doing much better, per aide who saw her at admission. Small amount of erythema left on LLE. Code(s): L03.90 - CELLULITIS, UNSPECIFIED (2) Acute kidney injury superimposed on CKD Current Visit: No Status: Acute Assessment & Plan: Usual eGFR is 40-60, but down to 30 yesterday. Rechecking today. Code(s): N17.9 - ACUTE KIDNEY FAILURE, UNSPECIFIED; N18.9 - CHRONIC KIDNEY DISEASE, UNSPECIFIED (3) CHF, acute on chronic Current Visit: No Status: Acute Assessment & Plan: ON IV lasix 40mg BID. Code(s): I50.9 - HEART FAILURE, UNSPECIFIED (4) Gait disturbance Current Visit: No Status: Chronic Code(s): R26.9 - UNSPECIFIED ABNORMALITIES OF GAIT AND MOBILITY (5) Diabetes mellitus Current Visit: No Status: Chronic Qualifiers: Diabetes mellitus type: type 2 Diabetes mellitus ad terminal makeup operator insulin use: with ad terminal makeup operator use Diabetes mellitus complication status: with kidney complications Diabetes mellitus complication detail: with chronic kidney disease Chronic kidney disease stage: stage 1 Qualified Code(s): E11.22 - Type 2 diabetes mellitus with diabetic chronic kidney disease; N18.1 - Chronic kidney disease, stage 1; Z79.4 - ad terminal makeup operator (current) use of insulin Code(s): E11.9 - TYPE 2 DIABETES MELLITUS WITHOUT COMPLICATIONS (6) Essential hypertension Current Visit: No Status: Chronic Code(s): I10 - ESSENTIAL (PRIMARY) HYPERTENSION (7) Paroxysmal atrial fibrillation Current Visit: No Status: Chronic Assessment & Plan: on coreg, just at 3.125mg SQ daily - some HR into the 40s here, so would continue watching that. Code(s): I48.0 - PAROXYSMAL ATRIAL FIBRILLATION (8) Muscular deconditioning Current Visit: Yes Status: Acute Assessment & Plan: Consulted PT, thank you. Code(s): R29.898 - OT SYMPTOMS AND SIGNS INVOLVING THE MUSCULOSKELETAL SYSTEM
[2021-06-18] MEDS: Klor Con 10 MEQ PO SCH (09:52)
[2021-06-18] MEDS: ZOLOFT 50 MG TABLET PO SCH (09:52)
[2021-06-18] MEDS: Coreg 3.125 MG PO SCH (09:52)
[2021-06-18] MEDS: Aricept 10 MG PO SCH (09:52)
[2021-06-18] MEDS: VITAMIN D PO SCH (09:52)
[2021-06-18] MEDS: Lasix 40 MG/4 ML IV SCH (09:52)
[2021-06-18] MEDS: NORVASC 5 MG PO SCH (09:53)
[2021-06-18] MEDS: Imdur 30 MG PO SCH (09:53)
[2021-06-18] MEDS: ELIQUIS 2.5 MG TABLET PO SCH (09:53)
[2021-06-18] MEDS: Cozaar 50 MG PO SCH (09:53)
[2021-06-18] MEDS: ECOTRIN 81 MG PO SCH (09:54)
[2021-06-18] MEDS: Protonix 40MG Tablet PO SCH (09:54)
[2021-06-18] MEDS: Cordarone 200 MG PO SCH (09:54)
[2021-06-18] MEDS: LYRICA 75 MG CAP PO SCH (09:54)
[2021-06-18] MEDS: HUMALOG SQ SCH ×2 (09:55→12:31)
[2021-06-18] MEDS ORDERED: NYSTOP POWDER 15 GM TP SCH (10:00)
[2021-06-18] MEDS: NYSTOP POWDER 15 GM TP SCH ×2 (10:07→16:21)
[2021-06-18 10:46] LABS: ANION GAP 11.6 MEQ/L (5-15); Calcium 8.5 mg/dL (8.4-10.2); Creatinine 1 1.67 mg/dL (0.52-1.04); EST GLOMERULAR FILTRATION RATE 32.1 ML/MIN; Potassium 4.7 mmol/L (3.5-5.1)
[2021-06-18 12:19] VITALS: O2SAT 95
--- NOTE | 2021-06-18 15:10 | PCM.DS ---
Discharge Summary Date of Admission: 06/15/21 19:38 Admitting Physician: TODD CHEN DO Consults: Consults on Case 06/17/21 12:16 Consult Podiatry ROUTINE Primary Care Provider: AMANDEEP WARD Allergies Allergies morphine Allergy (Severe, Verified 06/15/21 16:27) anaphylaxis pt went into respiratory failure and acute renal failure the last time she had morphine. "I was in a coma for a week" adhesive Allergy (Mild, Verified 06/15/21 16:27) Blisters aspirin Allergy (Verified 06/15/21 16:27) Difficulty Breathing PT STATES THAT SHE CAN TAKE ASPIRIN 81 MG BUT NOTHING HIGHER IN DOSE. Penicillins Allergy (Verified 06/15/21 16:27) Rash povidone-iodine [From Betadine] Allergy (Verified 06/15/21 16:27) BLISTERES soap [From Betadine] Allergy (Verified 06/15/21 16:27) Blisters Hospital Summary - Hospital Course Hospital Course: Pt is a 71 yo with afib, chronic renal failure, asthma, DM, gout, and OA who came to ER wtih cellulitis of bilat LE and CHF exacerbation. SHe was given IV clindamycin and IV lasix with good results. She was hypoxemic on 2L O2 at night with her cpap, so she was increased to 4L and will get that at home. Did well with PT today. Home with her family. Will get po clindamycin. Her breathing improved and she has no current clinical signs of CHF. Will get outpatient echocardiogram and resume home torsemide. Her allopurinol was changed from 100mg po BID to 50 mg po q.o.d. Was started on synthroid. F/u w me in 1 mo. - Vitals & Intake/Output Vital Signs: Vital Signs Temperature 97.7 F 06/18/21 11:00 Pulse Rate 52 L 06/18/21 11:00 Respiratory Rate 22 06/18/21 11:00 Blood Pressure 134/58 06/18/21 11:00 O2 Sat by Pulse Oximetry 95 06/18/21 11:00 Intake & Output: Intake & Output 06/16/21 06/17/21 06/18/21 06/19/21 10:59 11:59 11:59 11:59 Intake Total 1460 Output Total 1650 600 Balance -190 -600 Weight 127 kg - Lab Result Diagrams: 06/17/21 05:32 06/18/21 10:24 Lab Results-Last 24 Hrs: Lab Results-Last 24 Hours 06/17/21 06/17/21 06/17/21 Range/Units 05:52 16:33 20:17 Sodium (137-145) mmol/L Potassium (3.5-5.1) mmol/L Chloride (98-107) mmol/L Carbon Dioxide (22-30) mmol/L Anion Gap (5-15) MEQ/L BUN (7-17) mg/dL Creatinine (0.52-1.04) mg/dL Estimated GFR ML/MIN Glucose (74-106) mg/dL POC Glucometer 178 H 75 (74 to 106) mg/dL Calcium (8.4-10.2) mg/dL Free T3 pg/mL 2.96 (2.77-5.27) pg/mL 06/18/21 06/18/21 06/18/21 Range/Units 07:07 10:24 11:49 Sodium 138 (137-145) mmol/L Potassium 4.7 (3.5-5.1) mmol/L Chloride 99 (98-107) mmol/L Carbon Dioxide 32 H (22-30) mmol/L Anion Gap 11.6 (5-15) MEQ/L BUN 28 H (7-17) mg/dL Creatinine 1.67 H (0.52-1.04) mg/dL Estimated GFR 32.1 ML/MIN Glucose 208 H (74-106) mg/dL POC Glucometer 126 H 176 H (74 to 106) mg/dL Calcium 8.5 (8.4-10.2) mg/dL Free T3 pg/mL (2.77-5.27) pg/mL Micro Results-Entire Visit: Microbiology 06/15/21 18:35 Wound Culture - Preliminary Leg - Left Lower NO GROWTH TO DATE 06/15/21 18:55 Blood Culture - Preliminary Blood NO GROWTH TO DATE 06/15/21 18:46 Blood Culture - Preliminary Blood NO GROWTH TO DATE Accuchecks Date 06/18/21 Date 06/18/21 Date 06/17/21 Time 11:50 Time 07:05 Time 16:47 - Procedures and Test Procedures and Tests throughout Hospitalization: Therapy Orders & Screens 06/15/21 21:39 BiPap/CPAP ROUTINE Comment: Diagnosis: cellulitis Oxygen Nasal Cannula 2 lpm Comment: Diagnosis: cellulitis 06/18/21 08:51 PT Eval & Treat (MD Order) ONCE Reason for Eval:: deconditioning Diagnosis: cellulitis Discharge Exam General Appearance: no apparent distress, alert, obese Neurologic Exam: oriented x 3, cooperative, normal mood/affect Eye Exam: eyes nml inspection Ears, Nose, Throat Exam: moist mucous membranes Neck Exam: normal inspection Respiratory Exam: diminished breath sounds (good air exchange), No crackles/rales, No rhonchi, No wheezing Cardiovascular Exam: regular rate/rhythm, normal heart sounds, No murmur Gastrointestinal/Abdomen Exam: soft, normal bowel sounds, tenderness (LLQ), distention (morbidly obese), No mass, No guarding, No rebound Back Exam: normal inspection, No rash Extremity Exam: other (LLE mild erythema anteriorly, RLE no erythema.) Skin Exam: warm, dry Wound Assessment: Skin/Wound Assessment Wound/Incision Assessment Start: 06/15/21 21:24 Text: Status: Active Freq: Q6H Protocol: Document 06/18/21 10:00 (Rec: 06/18/21 10:11 [id number]) Wound/Incision Assessment Left Lower Other Wound Assessment Shift Assessment Wound Type cellulitis Drainage Amount Minimal Drainage Description Serous Drainage Odor None/Absent Surrounding Tissue [place],Bright Red,Edematous, Weeping Final Diagnosis/Problem List - Final Discharge Diagnosis/Problem (1) Cellulitis Current Visit: Yes Status: Acute Assessment & Plan: much improved. Home on 6 more days of clindamycin. Code(s): L03.90 - CELLULITIS, UNSPECIFIED (2) Acute kidney injury superimposed on CKD Current Visit: No Status: Acute Assessment & Plan: improved from yesterday. Recheck BMP in 3d. Code(s): N17.9 - ACUTE KIDNEY FAILURE, UNSPECIFIED; N18.9 - CHRONIC KIDNEY DISEASE, UNSPECIFIED (3) CHF, acute on chronic Current Visit: No Status: Resolved Assessment & Plan: Do outpatient echo. Code(s): I50.9 - HEART FAILURE, UNSPECIFIED (4) Gait disturbance Current Visit: No Status: Chronic Assessment & Plan: Did well with PT. Code(s): R26.9 - UNSPECIFIED ABNORMALITIES OF GAIT AND MOBILITY (5) Diabetes mellitus Current Visit: No Status: Chronic Code(s): E11.9 - TYPE 2 DIABETES MELLITUS WITHOUT COMPLICATIONS (6) Essential hypertension Current Visit: No Status: Chronic Code(s): I10 - ESSENTIAL (PRIMARY) HYPERTENSION (7) Paroxysmal atrial fibrillation Current Visit: No Status: Chronic Code(s): I48.0 - PAROXYSMAL ATRIAL FIBRILLATION (8) Muscular deconditioning Current Visit: Yes Status: Acute Code(s): R29.898 - OTH SYMPTOMS AND SIGNS INVOLVING THE MUSCULOSKELETAL SYSTEM - Discharge Disposition: Home, Self-Care Condition: Stable Prescriptions: New clindamycin HCL [Clindamycin HCl] 300 mg PO QID #24 cap Nystatin Powder 15 gm [Nystop Powder 15 gm] 1 gm TP TID #1 unit Levothyroxine Sodium 25 Mcg [Synthroid 25 Mcg] 25 mcg PO QAM@0700 #30 tablet Allopurinol 100 mg [Zyloprim 100 mg] 50 mg PO QOD #15 tablet Continue Sertraline HCl 50 mg [Zoloft 50 mg Tablet] 50 mg PO DAILY Isosorbide Mononitrate 30 mg [Imdur 30 MG] 30 mg PO DAILY Amiodarone HCl 200 mg [Cordarone 200 MG] 200 mg PO DAILY PANTOPRAZOLE 40 mg Tablet [Protonix 40MG Tablet] 40 mg PO DAILY Insulin Lispro [Humalog] 20 unit SQ BREAKFAST Insulin Glargine [Lantus Insulin] 36 unit SQ QHS Insulin Lispro [Humalog] 20 unit SQ LUNCH Insulin Lispro [Humalog] 16 unit SQ DINNER Donepezil HCl 10 mg [Aricept 10 MG] 1 tab PO DAILY Acetaminophen 325 mg [Tylenol 325 mg] 650 mg PO Q4HPRN PRN PRN Reason: Pain Carvedilol 3.125 mg [Coreg 3.125 MG] 3.125 mg PO DAILY Multivit-Minerals/Folic/Ginkgo [One Daily For Women 50+ Adv Tb] 1 tab PO DAILY Cholecalciferol (Vitamin D3) [Vitamin D3] 1,000 units PO DAILY Aspirin 81 mg PO DAILY Rosuvastatin Calcium 10 mg PO HS Torsemide 20 mg [Demadex 20 mg] 40 mg PO BID Losartan Potassium 100 mg PO DAILY Potassium Chloride 20 meq PO BID Pregabalin 100 mg PO BID Apixaban [Eliquis 5 mg Tablet] 5 mg PO DAILY Amlodipine Besylate 2.5 mg PO DAILY Discontinued Allopurinol 100 mg [Zyloprim 100 mg] 100 mg PO BID Follow up with: AMANDEEP WARD [Primary Care Provider] -
--- NOTE | 2021-06-18 17:06 | PCM.CONS ---
Podiatry HPI - Consult Consulting Provider: RENE COLÓN DPM - HPI History of Present Illness: Mary Kay is a very pleasant 71-year-old female very well-known to my service for venous insufficiency and wound care to the left lower extremity. Patient has suffered multiple bouts of cellulitis to the bilateral lower extremity secondary to her venous insufficiency. Patient was admitted through the emergency room on Friday for cellulitis to the left lower extremity as well as an exacerbation of her congestive heart failure. Patient was initially complaining of increased shortness of breath and swelling to the bilateral lower extremity. Since surgery in February 2021 to remove a recurring cyst the lateral aspect of the ankle patient has had extreme venous insufficiency that is made it very difficult to heal the wound. Patient does have a positive past medical history of hypertension congestive heart failure hyperlipidemia diabetes mellitus type 2 chronic kidney disease gout arthritis COPD sleep apnea as well as morbid obesity. Today she is seen this afternoon at bedside resting comfortably comfortably without any complaints. She currently denies any constitutional symptoms of infection. She denies any other pedal complaints at this time Medications & Allergies Home Medications: Home Medication List Amiodarone HCl 200 mg [Cordarone 200 MG] 200 mg PO DAILY 11/18/18 [History Confirmed 06/15/21] Isosorbide Mononitrate 30 mg [Imdur 30 MG] 30 mg PO DAILY 11/18/18 [History Confirmed 06/15/21] PANTOPRAZOLE 40 mg Tablet [Protonix 40MG Tablet] 40 mg PO DAILY 11/18/18 [History Confirmed 06/15/21] Sertraline HCl 50 mg [Zoloft 50 mg Tablet] 50 mg PO DAILY 11/18/18 [History Confirmed 06/15/21] Insulin Glargine [Lantus Insulin] 36 unit SQ QHS 03/23/19 [History Confirmed 06/15/21] Insulin Lispro [Humalog] 20 unit SQ BREAKFAST 03/23/19 [History Confirmed 06/15/21] Insulin Lispro [Humalog] 16 unit SQ DINNER 11/03/19 [History Confirmed 06/15/21] Insulin Lispro [Humalog] 20 unit SQ LUNCH 11/03/19 [History Confirmed 06/15/21] Donepezil HCl 10 mg [Aricept 10 MG] 1 tab PO DAILY 02/09/20 [History Confirmed 06/15/21] Acetaminophen 325 mg [Tylenol 325 mg] 650 mg PO Q4HPRN PRN 02/24/20 [History Confirmed 06/15/21] Aspirin 81 mg PO DAILY 02/19/21 [History Confirmed 06/15/21] Carvedilol 3.125 mg [Coreg 3.125 MG] 3.125 mg PO DAILY 02/19/21 [History Confirmed 06/15/21] Cholecalciferol (Vitamin D3) [Vitamin D3] 1,000 units PO DAILY 02/19/21 [History Confirmed 06/15/21] Multivit-Minerals/Folic/Ginkgo [One Daily For Women 50+ Adv Tb] 1 tab PO DAILY 02/19/21 [History Confirmed 06/15/21] Rosuvastatin Calcium 10 mg PO HS 02/19/21 [History Confirmed 06/15/21] Amlodipine Besylate 2.5 mg PO DAILY 06/15/21 [History Confirmed 06/15/21] Apixaban [Eliquis 5 mg Tablet] 5 mg PO DAILY 06/15/21 [History Confirmed 06/15/21] Losartan Potassium 100 mg PO DAILY 06/15/21 [History Confirmed 06/15/21] Potassium Chloride 20 meq PO BID 06/15/21 [History Confirmed 06/15/21] Pregabalin 100 mg PO BID 06/15/21 [History Confirmed 06/15/21] Torsemide 20 mg [Demadex 20 mg] 40 mg PO BID 06/15/21 [History Confirmed 06/15/21] Allopurinol 100 mg [Zyloprim 100 mg] 50 mg PO QOD #15 tablet 06/18/21 [Rx] Levothyroxine Sodium 25 Mcg [Synthroid 25 Mcg] 25 mcg PO QAM@0700 #30 tablet 06/18/21 [Rx] Nystatin Powder 15 gm [Nystop Powder 15 gm] 1 gm TP TID #1 unit 06/18/21 [ Rx] clindamycin HCL [Clindamycin HCl] 300 mg PO QID #24 cap 06/18/21 [Rx] Allergies/Adverse Reactions: Allergies Allergy/AdvReac Type Severity Reaction Status Date / Time morphine Allergy Severe anaphylaxis Verified 06/15/21 16:27 adhesive Allergy Mild Blisters Verified 06/15/21 16:27 aspirin Allergy Difficulty Verified 06/15/21 16:27 Breathing Penicillins Allergy Rash Verified 06/15/21 16:27 povidone-iodine Allergy BLISTERES Verified 06/15/21 16:27 [From Betadine] soap [From Betadine] Allergy Blisters Verified 06/15/21 16:27 - Past Medical History Past Medical History: Yes Neurological History: Peripheral Neuropathy ENT History: No Pertinent History Cardiac History: Angina, Arrhythmia, Congestive Heart Failure, High Cholesterol, Hypertension Respiratory History: COPD, Pneumonia Endocrine Medical History: Diabetes Type II Musculoskelatal History: Arthritis, Fractures GI Medical History: Diverticulitis, Other History: Other Pyscho-Social History: No Pertinent History Reproductive Disorders: No Pertinent History Comment: Impaired kidney function, HYPOKALEMIA, LEFT ANKLE FRACTURE 05/07/19, C DIFF - Past Surgical History Past Surgical History: Yes Neuro Surgical History: No Pertinent History Cardiac History: No Pertinent History Respiratory Surgery: No Pertinent History GI Surgical History: Appendectomy Genitourinary Surgical Hx: No Pertinent History Musculskeletal Surgical Hx: Orthopedic Surgery Female Surgical History: Hysterectomy Other Surgical History: Multiple hand surgeries, - Social History Smoking Status: Former smoker How long have you smoked: 1 year Exposure to second hand smoke: No Alcohol: None Drug Use: none Significant Family History: diabetes, hypertension Physical Exam - Narrative Narrative Physical Exam: Podiatry Physical ExamVascular: DP and PT pulses non- palpable b/l. CFT <5 seconds b/l. Skin temperature warm to cool from the proximal tibial tuberosity to distal toes b/l. pedal hair growth b/l. Varicosities noted to lower legs b/l.Minimal residual cellulitis to the left lower extremity with pitting edema 2+ at this time Negative for proximal streaking or lymphangitis noted. No lymphadenopathy on palpation of the posterior lymph nodes b/l Neurological: Protective sensation diminished 3/10 on the right and 3/10 on the left as indicated with [place] 5.07 monofilament b/l. Patellar and a chilles reflexes are brisk. Lower extremity temperature sensation diminished b/l. Evidence of intrinsic muscle atrophy. Dermatological: Surgical wound left lateral ankle. Stitches removed at this time revealing a Wound dehiscence has resolved at this time with a stable eschar over the lateral aspect of left ankle measuring 0.5 x 0.2 x 0.2 with a healthy granulation beneath. Maceration secondary to venous insufficiency and swelling.Toenails 1-5 b/l are normal in thickness Length and are dystrophic and crumbly . There is a wound located to the left lateral ankle. Wound description below Musculoskeletal: Strength intact for all muscle groups b/l. Pain to palpation to the distal fibula at the site of the fracture potentially indicative of a nonunion of the fibular fracture component. There is pain with ankle joint range of motion. There is pain on palpation of the deltoid and the medial malleolus. There is pain with range of motion of the subtalar joint. First MPJ range of motion and midtarsal joint range of motion are normal for the bilateral lower extremity there is pain with medial to lateral squeeze of the tibia to fibula indicative of potential syndesmotic injury. Imaging: Exam date 06/15/2019AP MO and LAT nonweightbearing of the left lower extremity demonstrates normal soft tissue planes there is an obvious fibular fracture with fracture line extending from anterior inferior to posterior superior there is some residual shortening of the fibula ankle more T's alignment is incongruent with medial clear space increase. There is a jessica avulsion fracture of the medial malleolus anterior colliculus. Likely rupture of deltoid ligament. No other osseous or abnormality seen joint spaces appear normal throughout.shows normal soft tissue planes. No evidence of soft tissue e mphysema. No fractures or dislocations New radiographs obtained today 11/22/2019 AP MO and LAT nonweightbearing of the left ankle demonstrating Normal soft tissue planes again. There is an fibular fracture has apparent callus to the entirety however there is slight reduction in the length of the fibula. Medial gutter shows medial clear space with a valgus rotation of the talus within the more T's. There is a small avulsion with calcifications within the deltoid indicative of potential rupture of the medial deltoid ligament. There appears to be some significant arthrosis/arthritic changes to the lateral gutter CT scan obtained 11/29/2019 coronal view demonstrating widening of the tibiotalar medial clear space with cystic changes to the medial malleolus and the medial shoulder of the talar body. There is calcifications versus avulsion injury of the deltoid ligament that is readily apparent. Cystic changes throughout the lateral plantar calcaneus subtalar joint with joint space narrowing at the middle facet laterally there is joint space narrowing of the posterior facet at its medial extent. There are cystic changes within the fibula and a potential malunion of the fibula calcifications within the Achilles tendon mid substance irregularity at the anterior O tibia articulation with the talar body cystic changes and degeneration of the articulation of the tibiofibular syndesmosis on axial view again there is joint space narrowing of the subtalar joint at the medial aspect of the posterior facet medially again visualized multiple cystic changes throughout the talar body more so on the medial than the lateral sagittal view demonstrates posterior facet of subtalar joint impingement cystic changes to the talar neck and the talar head significant changes to the anterior process of the calcaneus there is retrocalcaneal spurring with a thickened Achilles tendon and calcifications. There is an irregularity in the tibiotalar joint congruity with the talar body some joint space narrowing at the first tarsometatarsal joint cystic changes at the medial plantar navicular. Q9 Q7 - 1 Class A Findings Q8 - 2 Class B Findings Q9 - 1 Class B Findings and 2 Class C Findings Class A Findings Non-traumatic amputation of foot or integral skeletal thereof- no Class B Findings Absent posterior tibial pulse- yes Absent dorsalis pedis pulse- yes Advance trophic changes such as (3 required) - Hair growth decreased- yes - Nail changes- yes - Pigmentary changes (discoloration)- yes - Skin texture (thick, shinny)- yes - Skin color (rubor or redness)- no Class C Findings - Claudication- no - Temperature (e.g. cold feet)- no - Edema- yes - Paresthesias (abnormal spontaneous sensations in feet)- yes - Burning- yes Results - Labs Lab/Micro Results: Lab Results-Last 24 Hours 06/17/21 06/18/21 06/18/21 Range/Units 20:17 07:07 10:24 Sodium 138 (137-145) mmol/L Potassium 4.7 (3.5-5.1) mmol/L Chloride 99 (98-107) mmol/L Carbon Dioxide 32 H (22-30) mmol/L Anion Gap 11.6 (5-15) MEQ/L BUN 28 H (7-17) mg/dL Creatinine 1.67 H (0.52-1.04) mg/dL Estimated GFR 32.1 ML/MIN Glucose 208 H (74-106) mg/dL POC Glucometer 75 126 H (74 to 106) mg/dL Calcium 8.5 (8.4-10.2) mg/dL 06/18/21 06/18/21 Range/Units 11:49 16:54 Sodium (137-145) mmol/L Potassium (3.5-5.1) mmol/L Chloride (98-107) mmol/L Carbon Dioxide (22-30) mmol/L Anion Gap (5-15) MEQ/L BUN (7-17) mg/dL Creatinine (0.52-1.04) mg/dL Estimated GFR ML/MIN Glucose (74-106) mg/dL POC Glucometer 176 H 128 H (74 to 106) mg/dL Calcium (8.4-10.2) mg/dL Microbiology 06/15/21 18:35 Wound Culture - Preliminary Leg - Left Lower NO GROWTH TO DATE 06/15/21 18:55 Blood Culture - Preliminary Blood NO GROWTH TO DATE 06/15/21 18:46 Blood Culture - Preliminary Blood NO GROWTH TO DATE Accuchecks Date 06/18/21 Date 06/18/21 Time 11:50 Time 07:05 Assessment/Plan (1) Cellulitis Current Visit: Yes Status: Acute Qualifiers: Site of cellulitis: extremity Site of cellulitis of extremity: lower extremity Laterality: left Qualified Code(s): L03.116 - Cellulitis of left lower limb Assessment & Plan: Patient examination evaluation. Patient is progressing without complication status post cyst excision to the left lower extremityIn February 2021:. Patient has been controlled with Unna boots to the bilateral lower extremity for a number of months in the process of healing the removal of the cyst to the left lower extremity and has been free of any infection. Up until recently patient was provided a pair of [place] wraps in order to control the edema and likely was noncompliant with its use in the days leading up to the bout of venous insufficiency with ulceration and cellulitis. Unna boot applied to the Bilaterall ower extremity secondary to venous insufficiency. Dressing applied to the left lower extremity consisting of chlorhexidine Adaptic 4 x 4 Curlex and an Unna boot applied with Coban and moderate compression Okay for discharge from my standpoint with home health care changes Friday We friday and return for appointment within 1 week of discharge. Code(s): L03.90 - CELLULITIS, UNSPECIFIED (2) CHF (congestive heart failure) Current Visit: Yes Status: Chronic Code(s): I50.9 - HEART FAILURE, UNSPECIFIED (3) COPD (chronic obstructive pulmonary disease) Current Visit: Yes Status: Chronic (4) Diabetes mellitus, insulin dependent (IDDM), uncontrolled Current Visit: Yes Status: Chronic Code(s): WHG1001 - (5) Venous stasis dermatitis of both lower extremities Current Visit: Yes Status: Chronic Code(s): I87.2 - VENOUS INSUFFICIENCY (CHRONIC) (PERIPHERAL) (6) Fracture of left tibia and fibula Current Visit: No Status: Acute Code(s): S82.202A - UNSP FRACTURE OF SHAFT OF LEFT TIBIA, INIT FOR CLOS FX; S82.402A - UNSP FRACTURE OF SHAFT OF LEFT FIBULA, INIT FOR CLOS FX
[2021-06-18 17:41] VITALS: BP 140/63; PULSE 59
[2021-06-19] MEDS ORDERED: ZYLOPRIM 100 MG PO SCH (10:00)
== END 2021-06-18 18:00 | disposition home or self-care (01) ==
LOC: ED 16:10 → MED SURG 19:38
PROVIDERS: ADMIT Family Medicine; ATTEND Family Medicine
DX: L03.116 Cellulitis of left lower limb (principal); N17.9 Acute kidney failure, unspecified; N18.9 Chronic kidney disease, unspecified; E11.22 Type 2 diabetes mellitus with diabetic chronic kidney disease; I13.0 Hypertensive heart and chronic kidney disease with heart failure and stage 1 through stage 4 chronic kidney disease, or unspecified chronic kidney disease; I50.9 Heart failure, unspecified; R26.9 Unspecified abnormalities of gait and mobility; I48.0 Paroxysmal atrial fibrillation; E78.5 Hyperlipidemia, unspecified; R29.898 Other symptoms and signs involving the musculoskeletal system; J44.9 Chronic obstructive pulmonary disease, unspecified; I87.2 Venous insufficiency (chronic) (peripheral); G47.30 Sleep apnea, unspecified; Z79.899 Other long term (current) drug therapy; Z79.4 Long term (current) use of insulin; Z20.828 Contact with and (suspected) exposure to other viral communicable diseases
CPT/HCPCS: 0241U; 29580; 36415; 71045; 80048; 80053; 82607; 82947; 83036; 83605; 83880; 84443; 84481; 84484; 85025; 85027; 85610; 85730; 87040; 87070; 93005; 93268; 94660; 94760; 96365; 96374; 97161; 99219; 99285; G0378; 96375; J1817; J1940; J3420; A9270-GY

== ENCOUNTER 2021-09-15 23:55 | Emergency (ER) | payer MEDICARE, BC ==
[2021-09-16] MEDS ORDERED: SUBLIMAZE 100 MCG/2 ML IV ONE ×2 (00:20→02:09)
[2021-09-16] MEDS ORDERED: SUBLIMAZE 100 MCG/2 ML ONE ×2 (00:24→02:03)
[2021-09-16 00:51] LABS: Absolute Neutrophil Ct (ANC) 4.81 x10^3/uL (1.4-6.9); Basophil (Absolute #) 0.05 x10^3/uL (0-0.4); Eosinophil % 1.7 % (0.00-5.0); Eosinophil (Absolute #) 0.13 x10^3/uL (0-0.5); Hematocrit 39.3 % (35-47); Hemoglobin 12.2 g/dL (12.0-16.0); Lymphocyte (Absolute #) 1.92 x10^3/uL (1.0-4.6); Lymphocytes % 25.1 % (24.0-44.0); Mean Cell Volume 89.3 fL (78-100); Mean Corpuscular Hemoglobin 27.7 pg (26-32); Mean Platelet Volume 12.5 fL (7.5-11.0); Monocyte (Absolute #) 0.72 x10^3/uL (0.0-1.3); Monocytes % 9.4 % (0.0-12.0); Neutrophil % 62.8 % (36.0-66.0); Platelet Count 155 x10^3/uL (150-450); Red Cell Distribution Width 17.6 % (11.5-14.0); White Blood Count 7.7 x10^3/uL (4.0-10.5)
[2021-09-16 01:12] LABS: ALBUMIN 3.5 g/dL (3.5-5.0); BILIRUBIN,TOTAL 0.3 mg/dL (0.2-1.3); Calcium 8.6 mg/dL (8.4-10.2); Creatinine 1 1.84 mg/dL (0.52-1.04); EST GLOMERULAR FILTRATION RATE 28.7 ML/MIN; Potassium 3.5 mmol/L (3.5-5.1); Total Protein 6.4 g/dL (6.3-8.2)
--- NOTE | 2021-09-16 01:18 | ERPHSYRPT ---
- History of Present Illness Time Seen by Provider: 09/16/21 00:10 Source: patient Exam Limitations: no limitations Patient Subjective Stated Complaint: pt states she has had left sided neck pain for two days, she ratees pain as 9/10 Triage Nursing Assessment: pt is alert and oriented, rubbing l side of neck and states she has pain in neck Physician History: Patient is a 71-year-old white female who presents with a complaint of left- sided neck pain for 2 days. It starts behind the left ear and radiates down the lateral aspect of the neck. She reports is been getting worse over the last 48 hours. She denies any injury. Timing/Duration: day(s) (2) Method of Injury: unknown Quality: sharp, stabbing Back Pain Location: C-spine Severity of Pain-Max: severe Severity of Pain-Current: severe Modifying Factors: Improves With: movement Associated Symptoms: denies symptoms Previous symptoms: no prior history Allergies/Adverse Reactions: morphine Allergy (Severe, Verified 06/15/21 16:27) anaphylaxis pt went into respiratory failure and acute renal failure the last time she had morphine. "I was in a coma for a week" adhesive Allergy (Mild, Verified 06/15/21 16:27) Blisters aspirin Allergy (Verified 06/15/21 16:27) Difficulty Breathing PT STATES THAT SHE CAN TAKE ASPIRIN 81 MG BUT NOTHING HIGHER IN DOSE. Penicillins Allergy (Verified 06/15/21 16:27) Rash povidone-iodine [From Betadine] Allergy (Verified 06/15/21 16:27) BLISTERES soap [From Betadine] Allergy (Verified 09/16/21 00:12) Blisters Home Medications: Amiodarone HCl 200 mg [Cordarone 200 MG] 200 mg PO DAILY 11/18/18 [History] Isosorbide Mononitrate 30 mg [Imdur 30 MG] 30 mg PO DAILY 11/18/18 [History] PANTOPRAZOLE 40 mg Tablet [Protonix 40MG Tablet] 40 mg PO DAILY 11/18/18 [History] Sertraline HCl 50 mg [Zoloft 50 mg Tablet] 50 mg PO DAILY 11/18/18 [History] Insulin Glargine [Lantus Insulin] 36 unit SQ QHS 03/23/19 [History] Insulin Lispro [Humalog] 20 unit SQ BREAKFAST 03/23/19 [History] Insulin Lispro [Humalog] 16 unit SQ DINNER 11/03/19 [History] Insulin Lispro [Humalog] 20 unit SQ LUNCH 11/03/19 [History] Donepezil HCl 10 mg [Aricept 10 MG] 1 tab PO DAILY 02/09/20 [History] Acetaminophen 325 mg [Tylenol 325 mg] 650 mg PO Q4HPRN PRN 02/24/20 [History] Aspirin 81 mg PO DAILY 02/19/21 [History] Carvedilol 3.125 mg [Coreg 3.125 MG] 3.125 mg PO DAILY 02/19/21 [History] Cholecalciferol (Vitamin D3) [Vitamin D3] 1,000 units PO DAILY 02/19/21 [History] Multivit-Minerals/Folic/Ginkgo [One Daily For Women 50+ Adv Tb] 1 tab PO DAILY 02/19/21 [History] Rosuvastatin Calcium 10 mg PO HS 02/19/21 [History] Amlodipine Besylate 2.5 mg PO DAILY 06/15/21 [History] Apixaban [Eliquis 5 mg Tablet] 5 mg PO DAILY 06/15/21 [History] Losartan Potassium 100 mg PO DAILY 06/15/21 [History] Potassium Chloride 20 meq PO BID 06/15/21 [History] Pregabalin 100 mg PO BID 06/15/21 [History] Torsemide 20 mg [Demadex 20 mg] 40 mg PO BID 06/15/21 [History] Hx Tetanus, Diphtheria Vaccination/Date Given: No Hx Influenza Vaccination/Date Given: Yes Hx Pneumococcal Vaccination/Date Given: Yes Travel Risk - International Travel Have you traveled outside of the country in past 3 weeks: No - Coronavirus Screening Are you exhibiting any of the following symptoms?: No Close contact with a COVID-19 positive Pt in past 14-21 Days: No - Vaccine Status Have you recieved a Covid-19 vaccination: No - Review of Systems Constitutional: No Fever, No Chills Eyes: No Symptoms Ears, Nose, & Throat: No Symptoms Respiratory: No Cough, No Dyspnea Cardiac: No Chest Pain, No Edema, No Syncope Abdominal/Gastrointestinal: No Abdominal Pain, No Nausea, No Vomiting, No Diarrhea Genitourinary Symptoms: No Dysuria Musculoskeletal: Neck Pain, No Back Pain Skin: No Rash Neurological: No Dizziness, No Focal Weakness, No Sensory Changes Psychological: No Symptoms Endocrine: No Symptoms All Other Systems: Reviewed and Negative - Past Medical History Pertinent Past Medical History: Yes Neurological History: Peripheral Neuropathy ENT History: No Pertinent History Cardiac History: Angina, Arrhythmia, Congestive Heart Failure, High Cholesterol, Hypertension Respiratory History: COPD, Pneumonia Endocrine Medical History: Diabetes Type II Musculoskeletal History: Arthritis, Fractures GI Medical History: Diverticulitis, Other History: Other Psycho-Social History: No Pertinent History Female Reproductive Disorders: No Pertinent History Other Medical History: Impaired kidney function, HYPOKALEMIA, LEFT ANKLE FRACTURE 05/07/19, C DIFF - Past Surgical History Past Surgical History: Yes Neuro Surgical History: No Pertinent History Cardiac: No Pertinent History Respiratory: No Pertinent History Gastrointestinal: Appendectomy Genitourinary: No Pertinent History Musculoskeletal: Orthopedic Surgery Female Surgical History: Hysterectomy Other Surgical History: Multiple hand surgeries, - Social History Smoking Status: Former smoker How long have you smoked: 1 year Exposure to second hand smoke: No Alcohol Use: None Drug Use: none Patient Lives Alone: No Significant Family History: diabetes, hypertension - Nursing Vital Signs Nursing Vital Signs: Initial Vital Signs Temperature 97.6 F 09/16/21 00:04 Pulse Rate 63 09/16/21 00:04 Respiratory Rate 18 09/16/21 00:04 Blood Pressure 117/93 09/16/21 00:04 O2 Sat by Pulse Oximetry 93 L 09/16/21 00:04 Pain Scale Pain Intensity 9 - Physical Exam General Appearance: no apparent distress, alert Eye Exam: PERRL/EOMI, eyes nml inspection Neck Exam: normal inspection, limited range of motion, other (Lateral tenderness left neck), No meningismus, No midline tenderness Respiratory Exam: normal breath sounds, lungs clear, No respiratory distress Cardiovascular Exam: regular rate/rhythm, normal heart sounds Gastrointestinal Exam: soft, No tenderness, No mass Extremity Exam: normal inspection, normal range of motion, No calf tenderness, No pedal edema Neurologic Exam: alert, oriented x 3, cooperative, counselor dormitory II-XII nml as tested, normal mood/affect, nml station & gait, sensation nml, No motor deficits Skin Exam: normal color, warm, dry, No rash SpO2: 93 - Course Nursing assessment & vital signs reviewed: Yes EKG Interpreted by Me: RATE (61), Sinus Rhythm, Left [place] Deviation, Other (Poor R wave progression is noted and there is some prolonged [place] interval.) - CT Exams Cervical Spine CT Interpretation: Tele-radiologist Report Ordered Tests: Active Orders 24 hr Category Date Time Status CERVICAL SPINE WO CONTRAST [CT] Stat Exams 09/16/21 00:18 Taken CBC W DIFF Stat Lab 09/16/21 00:49 Completed CMP Stat Lab 09/16/21 00:49 Completed TROPONIN Q3H Lab 09/16/21 00:49 Completed TROPONIN Q3H Lab 09/16/21 03:30 Ordered TROPONIN Q3H Lab 09/16/21 06:30 Ordered TROPONIN Q3H Lab 09/16/21 09:30 Ordered TROPONIN Q3H Lab 09/16/21 12:30 Ordered EKG STAT RT 09/16/21 01:32 Active Medication Summary Discontinued Medications Generic Name Dose Route Start Last Admin Trade Name Boaz PRN Reason Stop Dose Admin Fentanyl Citrate 50 mcg 09/16/21 00:20 09/16/21 00:39 Fentanyl Citrate 100 Mcg/2 Ml* Vial IV 09/16/21 00:21 50 mcg STAT ONE Administration Fentanyl Citrate Confirm 09/16/21 00:24 Fentanyl Citrate 100 Mcg/2 Ml* Vial Administered 09/16/21 00:25 Dose 100 mcg .ROUTE .[employer] ONE Lab/Rad Data: Laboratory Result Diagrams 09/16/21 00:49 09/16/21 00:49 Laboratory Results 09/16/21 09/16/21 09/16/21 Range/Units 00:49 00:49 00:49 WBC 7.7 (4.0-10.5) x10^3/uL RBC 4.40 (4.1-5.4) x10^6/uL Hgb 12.2 (12.0-16.0) g/dL Hct 39.3 (35-47) % MCV 89.3 (78-100) fL MCH 27.7 (26-32) pg MCHC 31.0 L (32-36) g/dL RDW 17.6 H (11.5-14.0) % Plt Count 155 (150-450) x10^3/uL MPV 12.5 H (7.5-11.0) fL Gran % 62.8 (36.0-66.0) % Immature Gran % (Auto) 0.3 (0.00-0.4) % Nucleat RBC Rel Count 0.0 (0.00-0.1) % Eos # (Auto) 0.13 (0-0.5) x10^3/uL Immature Gran # (Auto) 0.02 (0.00-0.03) x10^3u/L Absolute Lymphs (auto) 1.92 (1.0-4.6) x10^3/uL Absolute Monos (auto) 0.72 (0.0-1.3) x10^3/uL Absolute Nucleated RBC 0.00 (0.00-0.01) x10^3u/L Lymphocytes % 25.1 (24.0-44.0) % Monocytes % 9.4 (0.0-12.0) % Eosinophils % 1.7 (0.00-5.0) % Basophils % 0.7 (0.0-0.4) % Absolute Granulocytes 4.81 (1.4-6.9) x10^3/uL Basophils # 0.05 (0-0.4) x10^3/uL Sodium 138 (137-145) mmol/L Potassium 3.5 (3.5-5.1) mmol/L Chloride 105 (98-107) mmol/L Carbon Dioxide 23 (22-30) mmol/L Anion Gap 14.0 (5-15) MEQ/L BUN 42 H (7-17) mg/dL Creatinine 1.84 H (0.52-1.04) mg/dL Estimated GFR 28.7 ML/MIN Glucose 363 H (74-106) mg/dL Calcium 8.6 (8.4-10.2) mg/dL Total Bilirubin 0.30 (0.2-1.3) mg/dL AST 29 (14-36) U/L ALT 24 (0-35) U/L Alkaline Phosphatase 152 H (38-126) U/L Troponin I < 0.012 (0.000-0.034) ng/mL Serum Total Protein 6.4 (6.3-8.2) g/dL Albumin 3.5 (3.5-5.0) g/dL - Progress Progress: improved, pain not gone completely - Departure Departure Disposition: Home Clinical Impression: Neck pain Condition: Stable Critical Care Time: No Referrals: AMANDEEP WARD [Primary Care Provider] - Follow up/PCP as directed Instructions: Generalized Neck Pain (DC) Prescriptions: Carisoprodol 350 mg [Soma 350 mg] 350 mg PO Q8H PRN PRN #10 tablet PRN Reason: Muscle Spasms Tramadol HCl 50 mg [Ultram 50 mg] 50 mg PO Q6H 3 Days #12 tablet
[2021-09-16] MEDS ORDERED: Ativan 1 MG PO ONE (02:02)
[2021-09-16 02:10] VITALS: BP 153/54; PULSE 61; O2SAT 97
[2021-09-16] MEDS ORDERED: Ativan 1 MG ONE (02:12)
--- NOTE | 2021-09-16 07:57 | XRAY ---
Indication: Left neck and left shoulder pain. Multiple contiguous axial images obtained through the cervical spine. Sagittal and coronal reformatted images obtained. Comparison: None Osseous structures demineralized consistent with patient's age. Axial images negative negative for acute fracture or suspicious bony lesions. Mild/moderate C3-T1 degenerative endplate spurring and mild/moderate multilevel degenerative facet hypertrophic, left greater than right. Also moderate atlantoaxial degenerative changes. Sagittal and coronal reformatted images demonstrate lordotic straightening, positional versus paraspinal spasm. 2-3 mm C2 anterolisthesis on C3. C5-C7 fusion. No acute compression fracture or jumped facet. Normal appearing craniocervical junction. Visualized noncontrasted soft tissues demonstrates mild heterogeneous thyroid gland with benign-appearing chunky calcifications and minimal bilateral chronic calcifications. Lung apices and base of brain unremarkable. Impression: 1. Cervical lordotic straightening, positional versus paraspinal spasm. 2. Negative acute fracture. 3. Osteopenia, C5-C7 fusion, multilevel degenerative spondylosis, and minimal grade 1 C2 spondylolisthesis. 4. Heterogeneous thyroid gland better evaluated with sonogram if clinically warranted. Comment: Preliminary interpretation made by C. No critical discrepancy.
== END 2021-09-16 02:30 | disposition home or self-care (01) ==
LOC: ED 23:55
DX: M54.2 Cervicalgia (principal); E78.5 Hyperlipidemia, unspecified; I11.0 Hypertensive heart disease with heart failure; I50.9 Heart failure, unspecified; J44.9 Chronic obstructive pulmonary disease, unspecified; E11.42 Type 2 diabetes mellitus with diabetic polyneuropathy; Z79.4 Long term (current) use of insulin; Z79.01 Long term (current) use of anticoagulants; Z79.899 Other long term (current) drug therapy; Z28.310 Unvaccinated for COVID-19; Z79.891 Long term (current) use of opiate analgesic
CPT/HCPCS: 36000; 36415; 72125; 80053; 84484; 85025; 96374; 99284; J3010; A9270-GY

== ENCOUNTER 2021-10-12 03:24 | Inpatient (IN) | payer MEDICARE, BC ==
--- NOTE | 2021-10-12 03:33 | ERPHSYRPT ---
- History of Present Illness Time Seen by Provider: 10/12/21 03:37 Source: patient Exam Limitations: no limitations Physician History: Patient is a 71-year-old diabetic female presents to our ED via EMS for evaluation of hypoglycemia. Patient states she has had esophageal strictures in the past at which required esophageal dilation. Patient has not been able to tolerate oral intake for 3 weeks. Patient states when she eats or tries to take her home meds she vomits it right up immediately. Patient states that she is still taking her subcutaneous insulin. Early this morning patient felt dizzy. Family checked her blood sugar revealed that it was in the mid 40 range. Patient was treated with peanut butter. 911 was dialed. Upon arrival EMS observed blood sugar to be in the 200 range. Dizziness resolved. Patient denies CP and SOB. No abdominal pain. Timing/Duration: week(s) (Vomiting for 3 weeks) Severity: moderate Modifying Factors: Improves With: nothing Associated Symptoms: vomiting (Hypoglycemia), No shortness of breath, No heartburn, No diaphoresis, No syncope, No seizure, No weakness Allergies/Adverse Reactions: morphine Allergy (Severe, Verified 10/12/21 03:36) anaphylaxis pt went into respiratory failure and acute renal failure the last time she had morphine. "I was in a coma for a week" adhesive Allergy (Mild, Verified 10/12/21 03:36) Blisters aspirin Allergy (Verified 10/12/21 03:36) Difficulty Breathing PT STATES THAT SHE CAN TAKE ASPIRIN 81 MG BUT NOTHING HIGHER IN DOSE. Penicillins Allergy (Verified 10/12/21 03:36) Rash povidone-iodine [From Betadine] Allergy (Verified 10/12/21 03:36) BLISTERES soap [From Betadine] Allergy (Verified 10/12/21 03:36) Blisters Home Medications: Amiodarone HCl 200 mg [Cordarone 200 MG] 200 mg PO DAILY 11/18/18 [Histo ry] PANTOPRAZOLE 40 mg Tablet [Protonix 40MG Tablet] 40 mg PO DAILY 11/18/18 [History] Sertraline HCl 50 mg [Zoloft 50 mg Tablet] 50 mg PO DAILY 11/18/18 [History] Insulin Lispro [Humalog] 1 dose SQ QID 07/29/20 [History] Donepezil HCl 10 mg [Aricept 10 MG] 1 tab PO DAILY 02/09/20 [History] Aspirin 81 mg PO DAILY 02/19/21 [History] Carvedilol 3.125 mg [Coreg 3.125 MG] 3.125 mg PO BID 02/19/21 [History] Cholecalciferol (Vitamin D3) [Vitamin D3] 1,000 units PO DAILY 02/19/21 [History] Rosuvastatin Calcium 10 mg PO HS 02/19/21 [History] Amlodipine Besylate 2.5 mg PO DAILY 06/15/21 [History] Apixaban [Eliquis 5 mg Tablet] 5 mg PO BID 06/15/21 [History] Losartan Potassium 100 mg PO DAILY 06/15/21 [History] Potassium Chloride 20 meq PO BID 06/15/21 [History] Pregabalin 100 mg PO BID 06/15/21 [History] Torsemide 20 mg [Demadex 20 mg] 20 mg PO BID 06/15/21 [History] Allopurinol 100 mg [Zyloprim 100 mg] 10 mg PO QOD 10/12/21 [History] Memantine HCl 5 mg [Namenda 5 MG] 10 mg PO BID 10/12/21 [History] Hx Tetanus, Diphtheria Vaccination/Date Given: No Hx Influenza Vaccination/Date Given: Yes Hx Pneumococcal Vaccination/Date Given: Yes Travel Risk - Vaccine Status Have you recieved a Covid-19 vaccination: No - Review of Systems Constitutional: No Symptoms, No Fever, No Chills Eyes: No Symptoms Ears, Nose, & Throat: No Symptoms Respiratory: No Symptoms, No Cough, No Dyspnea Cardiac: No Symptoms, No Chest Pain, No Edema, No Syncope Abdominal/Gastrointestinal: No Symptoms, No Abdominal Pain, No Nausea, No Vomiting, No Diarrhea Genitourinary Symptoms: No Symptoms, No Dysuria Musculoskeletal: No Symptoms, No Back Pain, No Neck Pain Skin: No Symptoms, No Rash Neurological: No Symptoms, No Dizziness, No Focal Weakness, No Sensory Changes Psychological: No Symptoms Endocrine: No Symptoms Hematologic/Lymphatic: No Symptoms Immunological/Allergic: No Symptoms All Other Systems: Reviewed and Negative - Past Medical History Pertinent Past Medical History: Yes Neurological History: Peripheral Neuropathy ENT History: No Pertinent History Cardiac History: Angina, Arrhythmia, Congestive Heart Failure, High Cholesterol, Hypertension Respiratory History: COPD, Pneumonia Endocrine Medical History: Diabetes Type II Musculoskeletal History: Arthritis, Fractures GI Medical History: Diverticulitis, Other History: Other Psycho-Social History: No Pertinent History Female Reproductive Disorders: No Pertinent History Other Medical History: Impaired kidney function, HYPOKALEMIA, LEFT ANKLE FRACTURE 05/07/19, C DIFF - Past Surgical History Past Surgical History: Yes Neuro Surgical History: No Pertinent History Cardiac: No Pertinent History Respiratory: No Pertinent History Gastrointestinal: Appendectomy Genitourinary: No Pertinent History Musculoskeletal: Orthopedic Surgery Female Surgical History: Hysterectomy Other Surgical History: Multiple hand surgeries, - Social History Smoking Status: Former smoker How long have you smoked: 1 year Exposure to second hand smoke: No Alcohol Use: None Drug Use: none Patient Lives Alone: No Significant Family History: diabetes, hypertension - Nursing Vital Signs Nursing Vital Signs: Initial Vital Signs Temperature 96.4 F 10/12/21 03:26 Pulse Rate 52 L 10/12/21 03:26 Respiratory Rate 18 10/12/21 03:26 Blood Pressure 151/53 10/12/21 03:26 O2 Sat by Pulse Oximetry 94 L 10/12/21 03:26 Pain Scale Pain Intensity 0 - Physical Exam General Appearance: no apparent distress, alert Eye Exam: PERRL/EOMI, eyes nml inspection Ears, Nose, Throat Exam: normal ENT inspection, TMs normal, pharynx normal, moist mucous membranes Neck Exam: normal inspection, non-tender, supple, full range of motion Respiratory Exam: normal breath sounds, lungs clear, airway intact, No respiratory distress Cardiovascular Exam: regular rate/rhythm, normal heart sounds, normal peripheral pulses Gastrointestinal/Abdomen Exam: soft, normal bowel sounds, No tenderness, No mass Back Exam: normal inspection, normal range of motion, No CVA tenderness, No vertebral tenderness Extremity Exam: normal inspection, normal range of motion, pelvis stable, other (Band-Aid left foot. Patient states this was an area of biopsy for which she is seeing podiatry.) Neurologic Exam: alert, oriented x 3, cooperative, normal mood/affect, sensation nml, No motor deficits Skin Exam: normal color, warm, dry, No rash Lymphatic Exam: No adenopathy SpO2 Interpretation: normal SpO2: 96 O2 Delivery: Room Air - Course Nursing assessment & vital signs reviewed: Yes - CT Exams Abdomen/Pelvis CT Interpretation: Tele-radiologist Report (Calcification of mitral annulus, aortic valve leaflet, coronary arteries, abdominal aorta. Hepatomegaly, left perinephric fat stranding diverticulosis osteopenia severe multilevel degenerative disease and facet arthropathy of thoracolumbar spine) Ordered Tests: Active Orders 24 hr Category Date Time Status EKG-ER Only STAT Care 10/12/21 03:31 Active IV Insertion STAT Care 10/12/21 03:31 Active ABDOMEN AND PELVIS W/0 CONTRAS [CT] Stat Exams 10/12/21 03:32 Taken CBC W DIFF Stat Lab 10/12/21 03:40 Completed CMP Stat Lab 10/12/21 03:40 Completed LIPASE Stat Lab 10/12/21 03:40 Completed MAG [MAGNESIUM] Stat Lab 10/12/21 04:00 Completed POCT GLUCOSE Stat Lab 10/12/21 03:29 Completed POCT GLUCOSE Stat Lab 10/12/21 04:21 Completed POCT GLUCOSE Stat Lab 10/12/21 05:41 Received POCT GLUCOSE Stat Lab 10/12/21 05:42 Completed TROPONIN Q3H Lab 10/12/21 03:51 Completed TROPONIN Q3H Lab 10/12/21 06:45 Ordered TROPONIN Q3H Lab 10/12/21 09:45 Ordered TROPONIN Q3H Lab 10/12/21 12:45 Ordered TROPONIN Q3H Lab 10/12/21 15:45 Ordered UA W/RFX CULTURE Stat Lab 10/12/21 Ordered Transfer Order Routine Transfer 10/12/21 Ordered Medication Summary Generic Name Dose Route Start Last Admin Trade Name Freq PRN Reason Stop Dose Admin Sodium Chloride 1,000 mls @ 100 mls/hr 10/12/21 03:45 10/12/21 04:02 Sodium Chloride 0.9% 1000 Ml IV 11/11/21 03:44 100 mls/hr .Q10H JAMAL Administration Magnesium Sulfate/Dextrose 100 mls @ 100 mls/hr 10/12/21 04:15 10/12/21 04:35 Magnesium 1 Gm / 100 Ml D5w IV 10/12/21 06:14 100 mls/hr Q1H JAMAL Administration Potassium Chloride 20 meq in 100 mls @ 50 mls/hr 10/12/21 04:15 10/12/21 04:32 Potassium Chloride 20 Meq In Water 100ml IV 10/12/21 08:14 50 mls/hr Q2H JAMAL Administration Dextrose/Sodium Chloride 1,000 mls @ 100 mls/hr 10/12/21 04:30 10/12/21 04:32 Dextrose 5% -0.45 Nacl 1000 Ml IV 11/11/21 04:29 100 mls/hr .Q10H JAMAL Administration Lab/Rad Data: Laboratory Result Diagrams 10/12/21 03:40 10/12/21 03:40 Laboratory Results 10/12/21 10/12/21 10/12/21 Range/Units 05:42 04:21 04:00 WBC (4.0-10.5) x10^3/uL RBC (4.1-5.4) x10^6/uL Hgb (12.0-16.0) g/dL Hct (35-47) % MCV (78-100) fL MCH (26-32) pg MCHC (32-36) g/dL RDW (11.5-14.0) % Plt Count (150-450) x10^3/uL MPV (7.5-11.0) fL Gran % (36.0-66.0) % Immature Gran % (Auto) (0.00-0.4) % Nucleat RBC Rel Count (0.00-0.1) % Eos # (Auto) (0-0.5) x10^3/uL Immature Gran # (Auto) (0.00-0.03) x10^3u/L Absolute Lymphs (auto) (1.0-4.6) x10^3/uL Absolute Monos (auto) (0.0-1.3) x10^3/uL Absolute Nucleated RBC (0.00-0.01) x10^3u/L Lymphocytes % (24.0-44.0) % Monocytes % (0.0-12.0) % Eosinophils % (0.00-5.0) % Basophils % (0.0-0.4) % Absolute Granulocytes (1.4-6.9) x10^3/uL Basophils # (0-0.4) x10^3/uL Sodium (137-145) mmol/L Potassium (3.5-5.1) mmol/L Chloride (98-107) mmol/L Carbon Dioxide (22-30) mmol/L Anion Gap (5-15) MEQ/L BUN (7-17) mg/dL Creatinine (0.52-1.04) mg/dL Estimated GFR ML/MIN Glucose (74-106) mg/dL POC Glucometer 132 H 99 (74 to 106) mg/dL Calcium (8.4-10.2) mg/dL Magnesium 2.0 (1.6-2.3) mg/dL Total Bilirubin (0.2-1.3) mg/dL AST (14-36) U/L ALT (0-35) U/L Alkaline Phosphatase (38-126) U/L Troponin I (0.000-0.034) ng/mL Serum Total Protein (6.3-8.2) g/dL Albumin (3.5-5.0) g/dL Lipase (23-300) U/L Influenza Type A Ag (NEGATIVE) Influenza Type B Ag (NEGATIVE) RSV (PCR) (Negative) SARS-CoV-2 (PCR) (NEGATIVE) 10/12/21 10/12/21 10/12/21 Range/Units 03:51 03:40 03:40 WBC (4.0-10.5) x10^3/uL RBC (4.1-5.4) x10^6/uL Hgb (12.0-16.0) g/dL Hct (35-47) % MCV (78-100) fL MCH (26-32) pg MCHC (32-36) g/dL RDW (11.5-14.0) % Plt Count (150-450) x10^3/uL MPV (7.5-11.0) fL Gran % (36.0-66.0) % Immature Gran % (Auto) (0.00-0.4) % Nucleat RBC Rel Count (0.00-0.1) % Eos # (Auto) (0-0.5) x10^3/uL Immature Gran # (Auto) (0.00-0.03) x10^3u/L Absolute Lymphs (auto) (1.0-4.6) x10^3/uL Absolute Monos (auto) (0.0-1.3) x10^3/uL Absolute Nucleated RBC (0.00-0.01) x10^3u/L Lymphocytes % (24.0-44.0) % Monocytes % (0.0-12.0) % Eosinophils % (0.00-5.0) % Basophils % (0.0-0.4) % Absolute Granulocytes (1.4-6.9) x10^3/uL Basophils # (0-0.4) x10^3/uL Sodium 140 (137-145) mmol/L Potassium 2.4 L* (3.5-5.1) mmol/L Chloride 104 (98-107) mmol/L Carbon Dioxide 29 (22-30) mmol/L Anion Gap 9.1 (5-15) MEQ/L BUN 11 (7-17) mg/dL Creatinine 0.79 (0.52-1.04) mg/dL Estimated GFR > 60.0 ML/MIN Glucose 99 (74-106) mg/dL POC Glucometer (74 to 106) mg/dL Calcium 8.5 (8.4-10.2) mg/dL Magnesium (1.6-2.3) mg/dL Total Bilirubin 0.60 (0.2-1.3) mg/dL AST 34 (14-36) U/L ALT 25 (0-35) U/L Alkaline Phosphatase 95 (38-126) U/L Troponin I 0.017 (0.000-0.034) ng/mL Serum Total Protein 6.0 L (6.3-8.2) g/dL Albumin 3.1 L (3.5-5.0) g/dL Lipase 101 (23-300) U/L Influenza Type A Ag NEGATIVE (NEGATIVE) Influenza Type B Ag NEGATIVE (NEGATIVE) RSV (PCR) NEGATIVE (Negative) SARS-CoV-2 (PCR) POSITIVE A (NEGATIVE) 10/12/21 10/12/21 Range/Units 03:40 03:29 WBC 4.5 (4.0-10.5) x10^3/uL RBC 4.58 (4.1-5.4) x10^6/uL Hgb 12.5 (12.0-16.0) g/dL Hct 40.0 (35-47) % MCV 87.3 (78-100) fL MCH 27.3 (26-32) pg MCHC 31.3 L (32-36) g/dL RDW 17.3 H (11.5-14.0) % Plt Count 169 (150-450) x10^3/uL MPV 11.2 H (7.5-11.0) fL Gran % 70.9 H (36.0-66.0) % Immature Gran % (Auto) 0.4 (0.00-0.4) % Nucleat RBC Rel Count 0.0 (0.00-0.1) % Eos # (Auto) 0.05 (0-0.5) x10^3/uL Immature Gran # (Auto) 0.02 (0.00-0.03) x10^3u/L Absolute Lymphs (auto) 0.86 L (1.0-4.6) x10^3/uL Absolute Monos (auto) 0.37 (0.0-1.3) x10^3/uL Absolute Nucleated RBC 0.00 (0.00-0.01) x10^3u/L Lymphocytes % 19.0 L (24.0-44.0) % Monocytes % 8.2 (0.0-12.0) % Eosinophils % 1.1 (0.00-5.0) % Basophils % 0.4 (0.0-0.4) % Absolute Granulocytes 3.21 (1.4-6.9) x10^3/uL Basophils # 0.02 (0-0.4) x10^3/uL Sodium (137-145) mmol/L Potassium (3.5-5.1) mmol/L Chloride (98-107) mmol/L Carbon Dioxide (22-30) mmol/L Anion Gap (5-15) MEQ/L BUN (7-17) mg/dL Creatinine (0.52-1.04) mg/dL Estimated GFR ML/MIN Glucose (74-106) mg/dL POC Glucometer 152 H (74 to 106) mg/dL Calcium (8.4-10.2) mg/dL Magnesium (1.6-2.3) mg/dL Total Bilirubin (0.2-1.3) mg/dL AST (14-36) U/L ALT (0-35) U/L Alkaline Phosphatase (38-126) U/L Troponin I (0.000-0.034) ng/mL Serum Total Protein (6.3-8.2) g/dL Albumin (3.5-5.0) g/dL Lipase (23-300) U/L Influenza Type A Ag (NEGATIVE) Influenza Type B Ag (NEGATIVE) RSV (PCR) (Negative) SARS-CoV-2 (PCR) (NEGATIVE) - Progress Progress: improved Progress Note: Patient is a diabetic who experienced dizziness. Patient was found to be hypoglycemic. Patient unable to tolerate p.o. for the past 3 weeks however has been using her diabetic medications in spite of her inability to tolerate p.o. Patient has a history of esophageal stricture requiring dilation. Patient's inability to tolerate p.o. is likely esophageal in nature. Patient will likely require an upper GI. Due to inability to tolerate p.o. patient has significant laboratory derangements including hypokalemia. Potassium replaced in our ED. IV fluids infused. Patient unable to provide us with a urine sample. CAT scan reveals left perinephric fat stranding. Further work-up required to rule out UTI/pyelonephritis. Patient currently on D5 half-normal saline due to downtrending glucose/hypoglycemia. Prolonged QT observed on EKG COVID test positive. Case discussed with Dr. Solis who accepts admission to observation. Plan of care discussed with patient. She agrees to admission [facility] for further evaluation and treatment. Portions of this note were created with voice recognition technology. There may be grammatical, spelling, punctuation or sound alike errors 10/12/21 05:55 10/12/21 05:[address] Cedrick Will see patient in: hospital (observation) Counseled pt/family regarding: lab results, diagnosis, rad results - Departure Departure Disposition: Observation Clinical Impression: Hypoglycemia, Esophageal abnormality, Vomiting, Prolonged QT interval, Hypoalbuminemia, COVID-19, Hepatomegaly, Left perinephric fat stranding, Diverticulosis, Atherosclerotic disease of the abdominal, Osteopenia, Thoracolumbar spine arthritis, "Calcification of aortic valve leaflets, Calcification of mitral annulus, Atherosclerotic disease of coronary apolinar, Hypokalemia Condition: Stable Critical Care Time: No Referrals: AMANDEEP WARD [Primary Care Provider] - Follow up/PCP as directed
[2021-10-12] MEDS ORDERED: Sodium Chloride 0.9% 1000 ML 1,000 ML IV SCH ×2 (03:45→06:44)
[2021-10-12 03:56] LABS: Absolute Neutrophil Ct (ANC) 3.21 x10^3/uL (1.4-6.9); Basophil (Absolute #) 0.02 x10^3/uL (0-0.4); Eosinophil % 1.1 % (0.00-5.0); Eosinophil (Absolute #) 0.05 x10^3/uL (0-0.5); Hemoglobin 12.5 g/dL (12.0-16.0); Lymphocyte (Absolute #) 0.86 x10^3/uL (1.0-4.6); Mean Cell Volume 87.3 fL (78-100); Mean Corpuscular Hemoglobin 27.3 pg (26-32); Mean Corpuscular Hgb Concent. 31.3 g/dL (32-36); Mean Platelet Volume 11.2 fL (7.5-11.0); Monocyte (Absolute #) 0.37 x10^3/uL (0.0-1.3); Monocytes % 8.2 % (0.0-12.0); Neutrophil % 70.9 % (36.0-66.0); Platelet Count 169 x10^3/uL (150-450); Red Blood Count 4.58 x10^6/uL (4.1-5.4); Red Cell Distribution Width 17.3 % (11.5-14.0); White Blood Count 4.5 x10^3/uL (4.0-10.5)
[2021-10-12] MEDS ORDERED: Sodium Chloride 0.9% 1000 ML 1,000 ML ONE (04:01)
[2021-10-12 04:06] LABS: ALBUMIN 3.1 g/dL (3.5-5.0); ALKALINE PHOSPHATASE 95 U/L (38-126); ANION GAP 9.1 MEQ/L (5-15); BLOOD UREA NITROGEN 11 mg/dL (7-17); CHLORIDE 104 mmol/L (98-107); Calcium 8.5 mg/dL (8.4-10.2); Carbon Dioxide 29 mmol/L (22-30); Creatinine 1 0.79 mg/dL (0.52-1.04); EST GLOMERULAR FILTRATION RATE > 60.0 ML/MIN; Glucose 99 mg/dL (74-106); LIPASE 101 U/L (23-300); SGOT/AST 34 U/L (14-36); SGPT/ALT 25 U/L (0-35); SODIUM 140 mmol/L (137-145)
[2021-10-12 04:14] LABS: Potassium 2.4 mmol/L (3.5-5.1)
[2021-10-12 04:32] LABS: INFLUENZA A NEGATIVE (NEGATIVE); INFLUENZA B NEGATIVE (NEGATIVE); RESPIRATORY SYNCTIAL VIRUS NEGATIVE (Negative)
[2021-10-12] MEDS: Dextrose 5% -0.45 NaCl 1000 ML 1,000 ML IV SCH ×2 (04:32→19:30)
[2021-10-12] MEDS: POTASSIUM CHLORIDE 20 mEq IN WATER 100ML 20 MEQ/100 ML BAG IV SCH ×2 (04:32→09:24)
[2021-10-12] MEDS: Magnesium 1 Gm / 100 Ml D5W*** 100 ML IV SCH ×2 (04:35→12:14)
[2021-10-12 04:40] LABS: SARS-CoV-2 Xpert Express POSITIVE (NEGATIVE)
[2021-10-12 06:57] LABS: Epithelial Cells RARE /HPF (FEW); Mucus SLIGHT /HPF (NEGATIVE)
[2021-10-12 07:05] LABS: Appearance CLEAR (CLEAR); Bilirubin SMALL (NEGATIVE); Dipstick done @ ? MAIN LAB; Glucose NEGATIVE (NEGATIVE); Ketones NEGATIVE (NEGATIVE); Nitrite NEGATIVE (NEGATIVE); Ph 5.5 (5-6); Protein,Urine Dip >=300 (Negative); RBC TRACE-INTACT Ery/ul (0-5); Specific Gravity 1.025 (1.005-1.025); Urobilinogen 0.2 mg/dL (0-1)
[2021-10-12 07:06] LABS: Urine Cultured Indicated? YES
[2021-10-12 08:56] LABS: Hematocrit 39.4 % (35-47); Hemoglobin 11.9 g/dL (12.0-16.0); Mean Cell Volume 91.4 fL (78-100); Mean Corpuscular Hemoglobin 27.6 pg (26-32); Mean Corpuscular Hgb Concent. 30.2 g/dL (32-36); Mean Platelet Volume 12.1 fL (7.5-11.0); Platelet Count 163 x10^3/uL (150-450); Red Blood Count 4.31 x10^6/uL (4.1-5.4); Red Cell Distribution Width 17.1 % (11.5-14.0); White Blood Count 5.5 x10^3/uL (4.0-10.5)
--- NOTE | 2021-10-12 09:33 | XRAY ---
Indication: Nausea, vomiting, and diarrhea. Obstruction. Multiple contiguous axial images obtained through the abdomen and pelvis without contrast. Comparison: February 24, 2020. Lung bases demonstrates new bibasilar patchy groundglass airspace disease and bibasilar subsegmental atelectasis/scarring. Heart not enlarged again with mitral valve calcifications. Noncontrasted stomach and bowel loops nonobstructed again with diffuse scattered diverticulosis no free fluid/air. Again appendectomy and hysterectomy. Remaining liver, gallbladder, pancreas, spleen, adrenal glands, kidneys, ureters, and bladder are unremarkable for noncontrast exam. Stable mild aortoiliac calcifications without AAA. Osseous structures intact again with osteopenia, mild/moderate degenerative changes throughout the thoracolumbar spine, and mild bilateral hip degenerative arthropathy. No ventral or inguinal hernias. Impression: 1. Again diffuse colonic diverticulosis without diverticulitis and chronic bony findings. 2. New bibasilar patchy groundglass airspace disease and bibasilar atelectasis/scarring. Comment: Preliminary interpretation made by [facility]. No critical discrepancy.
--- NOTE | 2021-10-12 10:51 | PCM.HP ---
History of Present Illness - Chief Complaint Chief Complaint: vomiting, dehydration, hypoglycemia, hypokalemia History of Present Illness: is a 71 year old female pt of mine from [facility] with DM, gout, CAD, asthma, afib, renal insufficiency, ALFRED, and OA who was admitted through ER with Covid, hypoglycemia, vomiting, hypokalemia, and quesion of UTI/pyelonephritis. Pt has been ill x 3 weeks, with nausea/vomiting/diarrhea. She has a hx of esophageal stricture, but notes she's been able to swallow foods but they just come right back up. Can tolerate some sips of fluids but a "gulp" will result in vomiting. No fever. Some cough. Last night she woke up and thought she was going to pass out, and her family thought her speech was slurred so EMS was called. Her two sons had covid about 2 weeks ago. In ER she was found to have K+ of 2.4. WBC 4.5. CT abd pelvis read by gus as mild asymmetric L perinephric fat stranding, but over read by Dr. Russo as ground glass bilat airspace dz, diverticulosis, nothing acute. pt is still feeling nauseated. hasn't tolerated any po since admission. last diarrhea last night, not watery. - Review of Systems Constitutional: Weakness Respiratory: Cough Cardiac: Edema (bilat LE) Abdominal/Gastrointestinal: Abdominal Pain (soreness, from the vomiting), Nausea, Vomiting, Diarrhea Musculoskeletal: Back Pain Neurological: Speech Changes (prior to admission), Other (presyncope) Psychological: No Anxiety, No Depression All Other Systems: Reviewed and Negative Medications & Allergies Home Medications: Home Medication List Amiodarone HCl 200 mg [Cordarone 200 MG] 200 mg PO DAILY 11/18/18 [History Confirmed 10/12/21] PANTOPRAZOLE 40 mg Tablet [Protonix 40MG Tablet] 40 mg PO DAILY 11/18/18 [History Confirmed 10/12/21] Sertraline HCl 50 mg [Zoloft 50 mg Tablet] 50 mg PO DAILY 11/18/18 [History Confirmed 10/12/21] Insulin Lispro [Humalog] 16 units SQ TIDWMEALS 11/03/19 [History Confirmed 10/12/21] Donepezil HCl 10 mg [Aricept 10 MG] 1 tab PO DAILY 02/09/20 [History Confirmed 10/12/21] Aspirin 81 mg PO DAILY 02/19/21 [History Confirmed 10/12/21] Carvedilol 3.125 mg [Coreg 3.125 MG] 3.125 mg PO BID 02/19/21 [History Confirmed 10/12/21] Cholecalciferol (Vitamin D3) [Vitamin D3] 1,000 units PO DAILY 02/19/21 [History Confirmed 10/12/21] Rosuvastatin Calcium 10 mg PO HS 02/19/21 [History Confirmed 10/12/21] Amlodipine Besylate 2.5 mg PO DAILY 06/15/21 [History Confirmed 10/12/21] Apixaban [Eliquis 5 mg Tablet] 5 mg PO BID 06/15/21 [History Confirmed 10/12/21] Losartan Potassium 100 mg PO DAILY 06/15/21 [History Confirmed 10/12/21] Potassium Chloride 20 meq PO BID 06/15/21 [History Confirmed 10/12/21] Pregabalin 100 mg PO BID 06/15/21 [History Confirmed 10/12/21] Torsemide 20 mg [Demadex 20 mg] 20 mg PO BID 06/15/21 [History Confirmed 10/12/21] Allopurinol 100 mg [Zyloprim 100 mg] 10 mg PO DAILY 10/12/21 [History Confirmed 10/12/21] Insulin Lispro [Humalog] 23 unit SQ QHS 10/12/21 [History Confirmed 10/12/21] Memantine HCl 5 mg [Namenda 5 MG] 10 mg PO BID 10/12/21 [History Confirmed 10/12/21] Allergies/Adverse Reactions: Allergies Allergy/AdvReac Type Severity Reaction Status Date / Time morphine Allergy Severe anaphylaxis Verified 10/12/21 03:36 adhesive Allergy Mild Blisters Verified 10/12/21 03:36 aspirin Allergy Difficulty Verified 10/12/21 03:36 Breathing Penicillins Allergy Rash Verified 10/12/21 03:36 povidone-iodine Allergy BLISTERES Verified 10/12/21 03:36 [From Betadine] soap [From Betadine] Allergy Blisters Verified 10/12/21 03:36 - Past Medical History Past Medical History: Yes Neurological History: Peripheral Neuropathy ENT History: No Pertinent History Cardiac History: Angina, Arrhythmia, Congestive Heart Failure, High Cholesterol, Hypertension Respiratory History: COPD, Pneumonia Endocrine Medical History: Diabetes Type II Musculoskelatal History: Arthritis, Fractures GI Medical History: Diverticulitis, Other History: Other Pyscho-Social History: No Pertinent History Reproductive Disorders: No Pertinent History Comment: Impaired kidney function, HYPOKALEMIA, LEFT ANKLE FRACTURE 05/07/19, C DIFF - Female History Are you now?: No - Past Surgical History Past Surgical History: Yes Neuro Surgical History: No Pertinent History Cardiac History: No Pertinent History Respiratory Surgery: No Pertinent History GI Surgical History: Appendectomy Genitourinary Surgical Hx: No Pertinent History Musculskeletal Surgical Hx: Orthopedic Surgery Female Surgical History: Hysterectomy Other Surgical History: Multiple hand surgeries, Left foot surgery approx 8 months ago with surgical sight still not completely healed today. Dr Rahul molina. - Social History Smoking Status: Former smoker How long have you smoked: 1 year Exposure to second hand smoke: No Alcohol: None Drug Use: none Significant Family History: diabetes, hypertension - Physical Exam Vital Signs: Vital Signs - 24 hr Temp Pulse Resp BP Pulse Ox 10/12/21 10:00 53 L 24 10/12/21 08:00 94 L 10/12/21 07:48 97.5 F 52 L 23 155/71 94 L 10/12/21 06:06 96 10/12/21 06:00 46 L 22 149/66 94 L 10/12/21 05:00 43 L 18 132/85 96 10/12/21 04:48 52 L 20 140/52 96 10/12/21 03:26 96.4 F 52 L 18 151/53 94 L General Appearance: mild distress (nauseated), alert, obese Neurologic Exam: oriented x 3, cooperative Eye Exam: eyes nml inspection Ears, Nose, Throat Exam: moist mucous membranes Neck Exam: normal inspection, non-tender, No lymphadenopathy, No thyromegaly Respiratory Exam: normal breath sounds, lungs clear, No crackles/rales, No rhonchi, No wheezing Cardiovascular Exam: regular rate/rhythm, normal heart sounds, No murmur Gastrointestinal/Abdomen Exam: soft, tenderness (diffuse), No normal bowel sounds (hypoactive but present), No mass, No guarding, No rebound Back Exam: normal inspection, No CVA tenderness, No rash Extremity Exam: normal inspection, swelling (trace pretibial edema bilat) Skin Exam: normal color, warm, dry, No rash Results - Labs Lab/Micro Results: Lab Results-Last 24 Hours 10/12/21 10/12/21 10/12/21 Range/Units 03:29 03:40 03:40 WBC 4.5 (4.0-10.5) x10^3/uL RBC 4.58 (4.1-5.4) x10^6/uL Hgb 12.5 (12.0-16.0) g/dL Hct 40.0 (35-47) % MCV 87.3 (78-100) fL MCH 27.3 (26-32) pg MCHC 31.3 L (32-36) g/dL RDW 17.3 H (11.5-14.0) % Plt Count 169 (150-450) x10^3/uL MPV 11.2 H (7.5-11.0) fL Gran % 70.9 H (36.0-66.0) % Immature Gran % (Auto) 0.4 (0.00-0.4) % Nucleat RBC Rel Count 0.0 (0.00-0.1) % Eos # (Auto) 0.05 (0-0.5) x10^3/uL Immature Gran # (Auto) 0.02 (0.00-0.03) x10^3u/L Absolute Lymphs (auto) 0.86 L (1.0-4.6) x10^3/uL Absolute Monos (auto) 0.37 (0.0-1.3) x10^3/uL Absolute Nucleated RBC 0.00 (0.00-0.01) x10^3u/L Lymphocytes % 19.0 L (24.0-44.0) % Monocytes % 8.2 (0.0-12.0) % Eosinophils % 1.1 (0.00-5.0) % Basophils % 0.4 (0.0-0.4) % Absolute Granulocytes 3.21 (1.4-6.9) x10^3/uL Basophils # 0.02 (0-0.4) x10^3/uL Sodium 140 (137-145) mmol/L Potassium 2.4 L* (3.5-5.1) mmol/L Chloride 104 (98-107) mmol/L Carbon Dioxide 29 (22-30) mmol/L Anion Gap 9.1 (5-15) MEQ/L BUN 11 (7-17) mg/dL Creatinine 0.79 (0.52-1.04) mg/dL Estimated GFR > 60.0 ML/MIN Glucose 99 (74-106) mg/dL POC Glucometer 152 H (74 to 106) mg/dL Calcium 8.5 (8.4-10.2) mg/dL Magnesium (1.6-2.3) mg/dL Total Bilirubin 0.60 (0.2-1.3) mg/dL AST 34 (14-36) U/L ALT 25 (0-35) U/L Alkaline Phosphatase 95 (38-126) U/L Troponin I (0.000-0.034) ng/mL Serum Total Protein 6.0 L (6.3-8.2) g/dL Albumin 3.1 L (3.5-5.0) g/dL Lipase 101 (23-300) U/L Urinalys Dipstick Clnc Urine Color (YELLOW) Urine Appearance (CLEAR) Urine pH (5-6) Ur Specific [place] (1.005-1.025) POC Urine Protein Conf (Negative) Urine Ketones (NEGATIVE) Urine Nitrite (NEGATIVE) Urine Bilirubin (NEGATIVE) Urine Urobilinogen (0-1) mg/dL Urine Leukocytes (NEGATIVE) Urine WBC (Auto) (0-5) /HPF Urine RBC (Auto) (0-2) /HPF U Hyaline Cast (Auto) (0-2) /LPF U Epithel Cells (Auto) (FEW) /HPF Urine Bacteria (Auto) (NEGATIVE) /HPF Urine RBC (0-5) Kervin/ul Urine Mucus (Auto) (NEGATIVE) /HPF Ur Culture Indicated? Urine Glucose (NEGATIVE) mg/dL Influenza Type A Ag (NEGATIVE) Influenza Type B Ag (NEGATIVE) RSV (PCR) (Negative) SARS-CoV-2 (PCR) (NEGATIVE) 10/12/21 10/12/21 10/12/21 Range/Units 03:40 03:51 04:00 WBC (4.0-10.5) x10^3/uL RBC (4.1-5.4) x10^6/uL Hgb (12.0-16.0) g/dL Hct (35-47) % MCV (78-100) fL MCH (26-32) pg MCHC (32-36) g/dL RDW (11.5-14.0) % Plt Count (150-450) x10^3/uL MPV (7.5-11.0) fL Gran % (36.0-66.0) % Immature Gran % (Auto) (0.00-0.4) % Nucleat RBC Rel Count (0.00-0.1) % Eos # (Auto) (0-0.5) x10^3/uL Immature Gran # (Auto) (0.00-0.03) x10^3u/L Absolute Lymphs (auto) (1.0-4.6) x10^3/uL Absolute Monos (auto) (0.0-1.3) x10^3/uL Absolute Nucleated RBC (0.00-0.01) x10^3u/L Lymphocytes % (24.0-44.0) % Monocytes % (0.0-12.0) % Eosinophils % (0.00-5.0) % Basophils % (0.0-0.4) % Absolute Granulocytes (1.4-6.9) x10^3/uL Basophils # (0-0.4) x10^3/uL Sodium (137-145) mmol/L Potassium (3.5-5.1) mmol/L Chloride (98-107) mmol/L Carbon Dioxide (22-30) mmol/L Anion Gap (5-15) MEQ/L BUN (7-17) mg/dL Creatinine (0.52-1.04) mg/dL Estimated GFR ML/MIN Glucose (74-106) mg/dL POC Glucometer (74 to 106) mg/dL Calcium (8.4-10.2) mg/dL Magnesium 2.0 (1.6-2.3) mg/dL Total Bilirubin (0.2-1.3) mg/dL AST (14-36) U/L ALT (0-35) U/L Alkaline Phosphatase (38-126) U/L Troponin I 0.017 (0.000-0.034) ng/mL Serum Total Protein (6.3-8.2) g/dL Albumin (3.5-5.0) g/dL Lipase (23-300) U/L Urinalys Dipstick Clnc Urine Color (YELLOW) Urine Appearance (CLEAR) Urine pH (5-6) Ur Specific [place] (1.005-1.025) POC Urine Protein Conf (Negative) Urine Ketones (NEGATIVE) Urine Nitrite (NEGATIVE) Urine Bilirubin (NEGATIVE) Urine Urobilinogen (0-1) mg/dL Urine Leukocytes (NEGATIVE) Urine WBC (Auto) (0-5) /HPF Urine RBC (Auto) (0-2) /HPF U Hyaline Cast (Auto) (0-2) /LPF U Epithel Cells (Auto) (FEW) /HPF Urine Bacteria (Auto) (NEGATIVE) /HPF Urine RBC (0-5) Kervin/ul Urine Mucus (Auto) (NEGATIVE) /HPF Ur Culture Indicated? Urine Glucose (NEGATIVE) mg/dL Influenza Type A Ag NEGATIVE (NEGATIVE) Influenza Type B Ag NEGATIVE (NEGATIVE) RSV (PCR) NEGATIVE (Negative) SARS-CoV-2 (PCR) POSITIVE A (NEGATIVE) 10/12/21 10/12/21 10/12/21 Range/Units 04:21 05:42 06:29 WBC (4.0-10.5) x10^3/uL RBC (4.1-5.4) x10^6/uL Hgb (12.0-16.0) g/dL Hct (35-47) % MCV (78-100) fL MCH (26-32) pg MCHC (32-36) g/dL RDW (11.5-14.0) % Plt Count (150-450) x10^3/uL MPV (7.5-11.0) fL Gran % (36.0-66.0) % Immature Gran % (Auto) (0.00-0.4) % Nucleat RBC Rel Count (0.00-0.1) % Eos # (Auto) (0-0.5) x10^3/uL Immature Gran # (Auto) (0.00-0.03) x10^3u/L Absolute Lymphs (auto) (1.0-4.6) x10^3/uL Absolute Monos (auto) (0.0-1.3) x10^3/uL Absolute Nucleated RBC (0.00-0.01) x10^3u/L Lymphocytes % (24.0-44.0) % Monocytes % (0.0-12.0) % Eosinophils % (0.00-5.0) % Basophils % (0.0-0.4) % Absolute Granulocytes (1.4-6.9) x10^3/uL Basophils # (0-0.4) x10^3/uL Sodium (137-145) mmol/L Potassium (3.5-5.1) mmol/L Chloride (98-107) mmol/L Carbon Dioxide (22-30) mmol/L Anion Gap (5-15) MEQ/L BUN (7-17) mg/dL Creatinine (0.52-1.04) mg/dL Estimated GFR ML/MIN Glucose (74-106) mg/dL POC Glucometer 99 132 H (74 to 106) mg/dL Calcium (8.4-10.2) mg/dL Magnesium (1.6-2.3) mg/dL Total Bilirubin (0.2-1.3) mg/dL AST (14-36) U/L ALT (0-35) U/L Alkaline Phosphatase (38-126) U/L Troponin I (0.000-0.034) ng/mL Serum Total Protein (6.3-8.2) g/dL Albumin (3.5-5.0) g/dL Lipase (23-300) U/L Urinalys Dipstick Clnc MAIN LAB Urine Color YELLOW (YELLOW) Urine Appearance CLEAR (CLEAR) Urine pH 5.5 (5-6) Ur Specific [place] 1.025 (1.005-1.025) POC Urine Protein Conf >=300 (Negative) Urine Ketones NEGATIVE (NEGATIVE) Urine Nitrite NEGATIVE (NEGATIVE) Urine Bilirubin SMALL (NEGATIVE) Urine Urobilinogen 0.2 (0-1) mg/dL Urine Leukocytes NEGATIVE (NEGATIVE) Urine WBC (Auto) 3-5 (0-5) /HPF Urine RBC (Auto) NONE (0-2) /HPF U Hyaline Cast (Auto) 3-5 (0-2) /LPF U Epithel Cells (Auto) RARE (FEW) /HPF Urine Bacteria (Auto) NONE (NEGATIVE) /HPF Urine RBC TRACE-INTACT (0-5) Kervin/ul Urine Mucus (Auto) SLIGHT (NEGATIVE) /HPF Ur Culture Indicated? YES Urine Glucose NEGATIVE (NEGATIVE) mg/dL Influenza Type A Ag (NEGATIVE) Influenza Type B Ag (NEGATIVE) RSV (PCR) (Negative) SARS-CoV-2 (PCR) (NEGATIVE) 10/12/21 10/12/21 10/12/21 Range/Units 07:06 07:06 09:40 WBC 5.5 (4.0-10.5) x10^3/uL RBC 4.31 (4.1-5.4) x10^6/uL Hgb 11.9 L (12.0-16.0) g/dL Hct 39.4 (35-47) % MCV 91.4 (78-100) fL MCH 27.6 (26-32) pg MCHC 30.2 L (32-36) g/dL RDW 17.1 H (11.5-14.0) % Plt Count 163 (150-450) x10^3/uL MPV 12.1 H (7.5-11.0) fL Gran % (36.0-66.0) % Immature Gran % (Auto) (0.00-0.4) % Nucleat RBC Rel Count (0.00-0.1) % Eos # (Auto) (0-0.5) x10^3/uL Immature Gran # (Auto) (0.00-0.03) x10^3u/L Absolute Lymphs (auto) (1.0-4.6) x10^3/uL Absolute Monos (auto) (0.0-1.3) x10^3/uL Absolute Nucleated RBC (0.00-0.01) x10^3u/L Lymphocytes % (24.0-44.0) % Monocytes % (0.0-12.0) % Eosinophils % (0.00-5.0) % Basophils % (0.0-0.4) % Absolute Granulocytes (1.4-6.9) x10^3/uL Basophils # (0-0.4) x10^3/uL Sodium (137-145) mmol/L Potassium (3.5-5.1) mmol/L Chloride (98-107) mmol/L Carbon Dioxide (22-30) mmol/L Anion Gap (5-15) MEQ/L BUN (7-17) mg/dL Creatinine (0.52-1.04) mg/dL Estimated GFR ML/MIN Glucose (74-106) mg/dL POC Glucometer (74 to 106) mg/dL Calcium (8.4-10.2) mg/dL Magnesium (1.6-2.3) mg/dL Total Bilirubin (0.2-1.3) mg/dL AST (14-36) U/L ALT (0-35) U/L Alkaline Phosphatase (38-126) U/L Troponin I 0.013 < 0.012 (0.000-0.034) ng/mL Serum Total Protein (6.3-8.2) g/dL Albumin (3.5-5.0) g/dL Lipase (23-300) U/L Urinalys Dipstick Clnc Urine Color (YELLOW) Urine Appearance (CLEAR) Urine pH (5-6) Ur Specific [place] (1.005-1.025) POC Urine Protein Conf (Negative) Urine Ketones (NEGATIVE) Urine Nitrite (NEGATIVE) Urine Bilirubin (NEGATIVE) Urine Urobilinogen (0-1) mg/dL Urine Leukocytes (NEGATIVE) Urine WBC (Auto) (0-5) /HPF Urine RBC (Auto) (0-2) /HPF U Hyaline Cast (Auto) (0-2) /LPF U Epithel Cells (Auto) (FEW) /HPF Urine Bacteria (Auto) (NEGATIVE) /HPF Urine RBC (0-5) Kervin/ul Urine Mucus (Auto) (NEGATIVE) /HPF Ur Culture Indicated? Urine Glucose (NEGATIVE) mg/dL Influenza Type A Ag (NEGATIVE) Influenza Type B Ag (NEGATIVE) RSV (PCR) (Negative) SARS-CoV-2 (PCR) (NEGATIVE) - Radiology Impressions Radiology Exams & Impressions: Radiology Procedures Category Date Time Status ABDOMEN AND PELVIS W/0 CONTRAS [CT] Stat Exams 10/12/21 03:32 Completed Assessment/Plan (1) COVID-19 Current Visit: Yes Status: Acute Assessment & Plan: Could be incidental finding, or could be the cause of her vomiting/diarrhea. Her positive test was just yesterday, so will go ahead and start on IV remdesivir. Does have ground glass on her CT; will add CXR. If she were to require supplemental O2, would start dexamethasone 6mg IV daily for up to 10 days. Currently on room air. Code(s): U07.1 - COVID-19 (2) Vomiting and diarrhea Current Visit: Yes Status: Acute Assessment & Plan: Advised try small sips as tolerated. Code(s): R11.10 - VOMITING, UNSPECIFIED; R19.7 - DIARRHEA, UNSPECIFIED (3) Hypokalemia Current Visit: Yes Status: Acute Assessment & Plan: repleting now. Mg nl. Code(s): E87.6 - HYPOKALEMIA (4) Hypoglycemia Current Visit: Yes Status: Resolved Code(s): E16.2 - HYPOGLYCEMIA, UNSPECIFIED (5) Prolonged QT interval Current Visit: Yes Status: Chronic Code(s): R94.31 - ABNORMAL ELECTROCARDIOGRAM [ECG] [EKG] (6) Diabetes mellitus Current Visit: No Status: Chronic Qualifiers: Diabetes mellitus type: type 2 Diabetes mellitus manager long term care insulin use: with manager long term care use Diabetes mellitus complication status: with kidney complications Diabetes mellitus complication detail: with chronic kidney disease Chronic kidney disease stage: stage 1 Qualified Code(s): E11.22 - Type 2 diabetes mellitus with diabetic chronic kidney disease; N18.1 - Chronic kidney disease, stage 1; 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 cover with SS. Code(s): E11.9 - TYPE 2 DIABETES MELLITUS WITHOUT COMPLICATIONS (7) HTN (hypertension) Current Visit: No Status: Chronic Qualifiers: Hypertension type: primary hypertension Qualified Code(s): I10 - Essential (primary) hypertension Code(s): I10 - ESSENTIAL (PRIMARY) HYPERTENSION (8) Paroxysmal atrial fibrillation Current Visit: No Status: Chronic Code(s): I48.0 - PAROXYSMAL ATRIAL FIBRILLATION (9) Renal insufficiency Current Visit: No Status: Chronic
[2021-10-12 11:41] LABS: ANION GAP 10.9 MEQ/L (5-15); BLOOD UREA NITROGEN 12 mg/dL (7-17); CHLORIDE 106 mmol/L (98-107); Calcium 8.6 mg/dL (8.4-10.2); Carbon Dioxide 25 mmol/L (22-30); Creatinine 1 0.78 mg/dL (0.52-1.04); EST GLOMERULAR FILTRATION RATE > 60.0 ML/MIN; Glucose 100 mg/dL (74-106); PREALBUMIN 11.52 mg/dL (17.6-36.0); SODIUM 140 mmol/L (137-145)
[2021-10-12 11:48] LABS: Potassium 2.6 mmol/L (3.5-5.1)
[2021-10-12] MEDS ORDERED: REMDESIVIR 200 MG in Sodium Chloride 0.9% 250 ML 250 ML IV ONE (12:00)
[2021-10-12] MEDS: PROTONIX 40 MG IV IV SCH (12:27)
--- NOTE | 2021-10-12 12:35 | XRAY ---
Indication: Positive Covid 19. Comparison: June 15, 2021. Portable chest demonstrates new mild hazy bibasilar interstitial alveolar opacities without consolidation/large effusion. Stable left upper lobe subsegmental atelectasis/scarring. Heart not enlarged. Bony thorax intact again with osteopenia and degenerative changes.
[2021-10-12] MEDS: Cordarone 200 MG PO SCH (14:47)
[2021-10-12] MEDS: ELIQUIS 2.5 MG TABLET PO SCH ×2 (14:47→22:27)
[2021-10-12] MEDS: ECOTRIN 81 MG PO SCH (14:47)
[2021-10-12] MEDS: Coreg 3.125 MG PO SCH ×2 (14:47→22:27)
[2021-10-12] MEDS: LYRICA 100MG PO SCH ×2 (14:48→22:27)
[2021-10-12] MEDS: ZOLOFT 50 MG TABLET PO SCH (14:48)
[2021-10-12] MEDS: Sodium Chloride 0.9% W/ 20 mEq KCl/LITER 1,000 ML IV SCH (16:28)
[2021-10-12 20:20] LABS: ANION GAP 7.2 MEQ/L (5-15); BLOOD UREA NITROGEN 8 mg/dL (7-17); CHLORIDE 107 mmol/L (98-107); Carbon Dioxide 28 mmol/L (22-30); Creatinine 1 0.73 mg/dL (0.52-1.04); EST GLOMERULAR FILTRATION RATE > 60.0 ML/MIN; Glucose 198 mg/dL (74-106); Potassium 3.5 mmol/L (3.5-5.1); SODIUM 139 mmol/L (137-145)
[2021-10-12] MEDS ORDERED: HYLENEX 150 UNITS INJECTION SQ ONE (21:00)
[2021-10-12] MEDS: Zofran 4 MG/2 ML VIAL IV PRN (21:09)
[2021-10-12] MEDS ORDERED: NON-FORMULARY ITEM (Apixaban*** [Eliquis 5 Mg Tablet***] 5 MG Tablet) PO SCH (22:00)
[2021-10-13] MEDS: Sodium Chloride 0.9% W/ 20 mEq KCl/LITER 1,000 ML IV SCH ×3 (03:00→22:04)
[2021-10-13] MEDS: Zofran 4 MG/2 ML VIAL IV PRN ×2 (04:13→08:26)
[2021-10-13 06:21] LABS: Absolute Neutrophil Ct (ANC) 3.43 x10^3/uL (1.4-6.9); Basophil (Absolute #) 0.01 x10^3/uL (0-0.4); Eosinophil % 1.6 % (0.00-5.0); Eosinophil (Absolute #) 0.08 x10^3/uL (0-0.5); Hemoglobin 11.4 g/dL (12.0-16.0); Lymphocytes % 25.2 % (24.0-44.0); Mean Cell Volume 89.8 fL (78-100); Mean Platelet Volume 11.1 fL (7.5-11.0); Monocyte (Absolute #) 0.32 x10^3/uL (0.0-1.3); Monocytes % 6.2 % (0.0-12.0); Neutrophil % 66.6 % (36.0-66.0); Platelet Count 171 x10^3/uL (150-450); Red Blood Count 4.23 x10^6/uL (4.1-5.4); Red Cell Distribution Width 17.6 % (11.5-14.0); White Blood Count 5.2 x10^3/uL (4.0-10.5)
[2021-10-13 06:33] LABS: ALBUMIN 2.8 g/dL (3.5-5.0); ALKALINE PHOSPHATASE 83 U/L (38-126); ANION GAP 8.4 MEQ/L (5-15); BLOOD UREA NITROGEN 8 mg/dL (7-17); CHLORIDE 109 mmol/L (98-107); Carbon Dioxide 26 mmol/L (22-30); Creatinine 1 0.72 mg/dL (0.52-1.04); EST GLOMERULAR FILTRATION RATE > 60.0 ML/MIN; Glucose 175 mg/dL (74-106); Potassium 4.1 mmol/L (3.5-5.1); SGOT/AST 27 U/L (14-36); SGPT/ALT 20 U/L (0-35); SODIUM 140 mmol/L (137-145); Total Protein 5.5 g/dL (6.3-8.2)
[2021-10-13 06:39] LABS: Calcium 7.8 mg/dL (8.4-10.2)
--- NOTE | 2021-10-13 08:05 | PCM.NOTE ---
Date and Time: 10/13/21802 Subjective Assessment: c/o nausea and vomiting for 1 day - Review of Systems Constitutional: No Fever, No Chills Eyes: No Symptoms Ears, Nose, & Throat: No Symptoms Respiratory: No Cough, No Short Of Breath Cardiac: No Chest Pain, No Edema, No Syncope Abdominal/Gastrointestinal: Nausea, Vomiting, No Abdominal Pain, No Diarrhea Genitourinary Symptoms: No Dysuria Musculoskeletal: No Back Pain, No Neck Pain Skin: No Rash Neurological: No Dizziness, No Focal Weakness, No Sensory Changes Psychological: No Symptoms Endocrine: No Symptoms Hematologic/Lymphatic: No Symptoms Immunological/Allergic: No Symptoms Objective Exam General Appearance: no apparent distress, alert Neurologic Exam: alert, oriented x 3, cooperative, normal mood/affect, nml cerebellar function, sensation nml, No motor deficits Skin Exam: normal color, warm, dry Eye Exam: PERRL, EOMI, eyes nml inspection Ears, Nose, Throat Exam: normal ENT inspection, pharynx normal, moist mucous membranes Neck Exam: normal inspection, non-tender, supple, full range of motion Respiratory Exam: normal breath sounds, lungs clear, No respiratory distress Cardiovascular Exam: regular rate/rhythm, normal heart sounds Gastrointestinal/Abdomen Exam: soft, No tenderness, No mass Extremity Exam: normal inspection, normal range of motion Back Exam: normal inspection, normal range of motion, No CVA tenderness, No vertebral tenderness Pelvic Exam: deferred Rectal Exam: deferred OBJECTIVE DATA Vital Signs: Vital Signs - 24 hr Temp Pulse Resp BP Pulse Ox 10/13/21 07:21 97.5 F 60 21 161/71 91 L 10/13/21 06:00 19 10/13/21 05:40 60 19 10/13/21 04:00 19 10/13/21 03:54 98.2 F 58 L 19 156/67 96 10/13/21 02:00 57 L 19 10/13/21 00:00 98.0 F 63 16 168/68 94 L 10/12/21 22:00 16 10/12/21 20:00 98.2 F 57 L 16 179/72 96 10/12/21 18:00 17 10/12/21 17:55 56 L 17 94 L 10/12/21 16:00 98.7 F 59 L 29 H 166/70 95 10/12/21 14:00 56 L 22 94 L 10/12/21 12:00 98.0 F 54 L 23 156/72 91 L 10/12/21 10:00 53 L 24 Pain Assessment - Last Documented Pain Intensity 0 Intake and Output: Intake & Output 10/10/21 10/11/21 10/12/21 10/13/21 11:59 11:59 11:59 11:59 Intake Total 120 2777 Output Total 300 Balance 120 2477 Weight 120.4 kg Lab Results: Lab Results-Last 24 Hours 10/12/21 10/12/21 10/12/21 Range/Units 07:06 07:06 08:29 WBC 5.5 (4.0-10.5) x10^3/uL RBC 4.31 (4.1-5.4) x10^6/uL Hgb 11.9 L (12.0-16.0) g/dL Hct 39.4 (35-47) % MCV 91.4 (78-100) fL MCH 27.6 (26-32) pg MCHC 30.2 L (32-36) g/dL RDW 17.1 H (11.5-14.0) % Plt Count 163 (150-450) x10^3/uL MPV 12.1 H (7.5-11.0) fL Gran % (36.0-66.0) % Immature Gran % (Auto) (0.00-0.4) % Nucleat RBC Rel Count (0.00-0.1) % Eos # (Auto) (0-0.5) x10^3/uL Immature Gran # (Auto) (0.00-0.03) x10^3u/L Absolute Lymphs (auto) (1.0-4.6) x10^3/uL Absolute Monos (auto) (0.0-1.3) x10^3/uL Absolute Nucleated RBC (0.00-0.01) x10^3u/L Lymphocytes % (24.0-44.0) % Monocytes % (0.0-12.0) % Eosinophils % (0.00-5.0) % Basophils % (0.0-0.4) % Absolute Granulocytes (1.4-6.9) x10^3/uL Basophils # (0-0.4) x10^3/uL Sodium 140 (137-145) mmol/L Potassium 2.6 L* (3.5-5.1) mmol/L Chloride 106 (98-107) mmol/L Carbon Dioxide 25 (22-30) mmol/L Anion Gap 10.9 (5-15) MEQ/L BUN 12 (7-17) mg/dL Creatinine 0.78 (0.52-1.04) mg/dL Estimated GFR > 60.0 ML/MIN Glucose 100 (74-106) mg/dL POC Glucometer (74 to 106) mg/dL Calcium 8.6 (8.4-10.2) mg/dL Total Bilirubin (0.2-1.3) mg/dL AST (14-36) U/L ALT (0-35) U/L Alkaline Phosphatase (38-126) U/L Troponin I (0.000-0.034) ng/mL Serum Total Protein (6.3-8.2) g/dL Albumin (3.5-5.0) g/dL Prealbumin 11.52 L (17.6-36.0) mg/dL Procalcitonin (0.030-0.080) ng/mL TSH 3rd Generation 1.300 (0.47-4.68) mIU/L 10/12/21 10/12/21 10/12/21 Range/Units 09:40 09:40 11:51 WBC (4.0-10.5) x10^3/uL RBC (4.1-5.4) x10^6/uL Hgb (12.0-16.0) g/dL Hct (35-47) % MCV (78-100) fL MCH (26-32) pg MCHC (32-36) g/dL RDW (11.5-14.0) % Plt Count (150-450) x10^3/uL MPV (7.5-11.0) fL Gran % (36.0-66.0) % Immature Gran % (Auto) (0.00-0.4) % Nucleat RBC Rel Count (0.00-0.1) % Eos # (Auto) (0-0.5) x10^3/uL Immature Gran # (Auto) (0.00-0.03) x10^3u/L Absolute Lymphs (auto) (1.0-4.6) x10^3/uL Absolute Monos (auto) (0.0-1.3) x10^3/uL Absolute Nucleated RBC (0.00-0.01) x10^3u/L Lymphocytes % (24.0-44.0) % Monocytes % (0.0-12.0) % Eosinophils % (0.00-5.0) % Basophils % (0.0-0.4) % Absolute Granulocytes (1.4-6.9) x10^3/uL Basophils # (0-0.4) x10^3/uL Sodium (137-145) mmol/L Potassium (3.5-5.1) mmol/L Chloride (98-107) mmol/L Carbon Dioxide (22-30) mmol/L Anion Gap (5-15) MEQ/L BUN (7-17) mg/dL Creatinine (0.52-1.04) mg/dL Estimated GFR ML/MIN Glucose (74-106) mg/dL POC Glucometer 150 H (74 to 106) mg/dL Calcium (8.4-10.2) mg/dL Total Bilirubin (0.2-1.3) mg/dL AST (14-36) U/L ALT (0-35) U/L Alkaline Phosphatase (38-126) U/L Troponin I < 0.012 (0.000-0.034) ng/mL Serum Total Protein (6.3-8.2) g/dL Albumin (3.5-5.0) g/dL Prealbumin (17.6-36.0) mg/dL Procalcitonin 0.073 (0.030-0.080) ng/mL TSH 3rd Generation (0.47-4.68) mIU/L 10/12/21 10/12/21 10/12/21 Range/Units 13:23 13:29 16:05 WBC (4.0-10.5) x10^3/uL RBC (4.1-5.4) x10^6/uL Hgb (12.0-16.0) g/dL Hct (35-47) % MCV (78-100) fL MCH (26-32) pg MCHC (32-36) g/dL RDW (11.5-14.0) % Plt Count (150-450) x10^3/uL MPV (7.5-11.0) fL Gran % (36.0-66.0) % Immature Gran % (Auto) (0.00-0.4) % Nucleat RBC Rel Count (0.00-0.1) % Eos # (Auto) (0-0.5) x10^3/uL Immature Gran # (Auto) (0.00-0.03) x10^3u/L Absolute Lymphs (auto) (1.0-4.6) x10^3/uL Absolute Monos (auto) (0.0-1.3) x10^3/uL Absolute Nucleated RBC (0.00-0.01) x10^3u/L Lymphocytes % (24.0-44.0) % Monocytes % (0.0-12.0) % Eosinophils % (0.00-5.0) % Basophils % (0.0-0.4) % Absolute Granulocytes (1.4-6.9) x10^3/uL Basophils # (0-0.4) x10^3/uL Sodium (137-145) mmol/L Potassium 3.5 D (3.5-5.1) mmol/L Chloride (98-107) mmol/L Carbon Dioxide (22-30) mmol/L Anion Gap (5-15) MEQ/L BUN (7-17) mg/dL Creatinine (0.52-1.04) mg/dL Estimated GFR ML/MIN Glucose (74-106) mg/dL POC Glucometer (74 to 106) mg/dL Calcium (8.4-10.2) mg/dL Total Bilirubin (0.2-1.3) mg/dL AST (14-36) U/L ALT (0-35) U/L Alkaline Phosphatase (38-126) U/L Troponin I < 0.012 < 0.012 (0.000-0.034) ng/mL Serum Total Protein (6.3-8.2) g/dL Albumin (3.5-5.0) g/dL Prealbumin (17.6-36.0) mg/dL Procalcitonin (0.030-0.080) ng/mL TSH 3rd Generation (0.47-4.68) mIU/L 10/12/21 10/12/21 10/12/21 Range/Units 16:56 20:00 21:21 WBC (4.0-10.5) x10^3/uL RBC (4.1-5.4) x10^6/uL Hgb (12.0-16.0) g/dL Hct (35-47) % MCV (78-100) fL MCH (26-32) pg MCHC (32-36) g/dL RDW (11.5-14.0) % Plt Count (150-450) x10^3/uL MPV (7.5-11.0) fL Gran % (36.0-66.0) % Immature Gran % (Auto) (0.00-0.4) % Nucleat RBC Rel Count (0.00-0.1) % Eos # (Auto) (0-0.5) x10^3/uL Immature Gran # (Auto) (0.00-0.03) x10^3u/L Absolute Lymphs (auto) (1.0-4.6) x10^3/uL Absolute Monos (auto) (0.0-1.3) x10^3/uL Absolute Nucleated RBC (0.00-0.01) x10^3u/L Lymphocytes % (24.0-44.0) % Monocytes % (0.0-12.0) % Eosinophils % (0.00-5.0) % Basophils % (0.0-0.4) % Absolute Granulocytes (1.4-6.9) x10^3/uL Basophils # (0-0.4) x10^3/uL Sodium 139 (137-145) mmol/L Potassium 3.5 (3.5-5.1) mmol/L Chloride 107 (98-107) mmol/L Carbon Dioxide 28 (22-30) mmol/L Anion Gap 7.2 (5-15) MEQ/L BUN 8 (7-17) mg/dL Creatinine 0.73 (0.52-1.04) mg/dL Estimated GFR > 60.0 ML/MIN Glucose 198 H (74-106) mg/dL POC Glucometer 205 H 202 H (74 to 106) mg/dL Calcium 8.0 L (8.4-10.2) mg/dL Total Bilirubin (0.2-1.3) mg/dL AST (14-36) U/L ALT (0-35) U/L Alkaline Phosphatase (38-126) U/L Troponin I (0.000-0.034) ng/mL Serum Total Protein (6.3-8.2) g/dL Albumin (3.5-5.0) g/dL Prealbumin (17.6-36.0) mg/dL Procalcitonin (0.030-0.080) ng/mL TSH 3rd Generation (0.47-4.68) mIU/L 10/13/21 10/13/21 10/13/21 Range/Units 05:20 05:20 06:40 WBC 5.2 (4.0-10.5) x10^3/uL RBC 4.23 (4.1-5.4) x10^6/uL Hgb 11.4 L (12.0-16.0) g/dL Hct 38.0 (35-47) % MCV 89.8 (78-100) fL MCH 27.0 (26-32) pg MCHC 30.0 L (32-36) g/dL RDW 17.6 H (11.5-14.0) % Plt Count 171 (150-450) x10^3/uL MPV 11.1 H (7.5-11.0) fL Gran % 66.6 H (36.0-66.0) % Immature Gran % (Auto) 0.2 (0.00-0.4) % Nucleat RBC Rel Count 0.0 (0.00-0.1) % Eos # (Auto) 0.08 (0-0.5) x10^3/uL Immature Gran # (Auto) 0.01 (0.00-0.03) x10^3u/L Absolute Lymphs (auto) 1.30 (1.0-4.6) x10^3/uL Absolute Monos (auto) 0.32 (0.0-1.3) x10^3/uL Absolute Nucleated RBC 0.00 (0.00-0.01) x10^3u/L Lymphocytes % 25.2 (24.0-44.0) % Monocytes % 6.2 (0.0-12.0) % Eosinophils % 1.6 (0.00-5.0) % Basophils % 0.2 (0.0-0.4) % Absolute Granulocytes 3.43 (1.4-6.9) x10^3/uL Basophils # 0.01 (0-0.4) x10^3/uL Sodium 140 (137-145) mmol/L Potassium 4.1 (3.5-5.1) mmol/L Chloride 109 H (98-107) mmol/L Carbon Dioxide 26 (22-30) mmol/L Anion Gap 8.4 (5-15) MEQ/L BUN 8 (7-17) mg/dL Creatinine 0.72 (0.52-1.04) mg/dL Estimated GFR > 60.0 ML/MIN Glucose 175 H (74-106) mg/dL POC Glucometer 171 H (74 to 106) mg/dL Calcium 7.8 L (8.4-10.2) mg/dL Total Bilirubin 0.60 (0.2-1.3) mg/dL AST 27 (14-36) U/L ALT 20 (0-35) U/L Alkaline Phosphatase 83 (38-126) U/L Troponin I (0.000-0.034) ng/mL Serum Total Protein 5.5 L (6.3-8.2) g/dL Albumin 2.8 L (3.5-5.0) g/dL Prealbumin (17.6-36.0) mg/dL Procalcitonin (0.030-0.080) ng/mL TSH 3rd Generation (0.47-4.68) mIU/L Radiology Exams: Radiology Procedures Category Date Time Status ABDOMEN AND PELVIS W/0 CONTRAS [CT] Stat Exams 10/12/21 03:32 Completed CHEST 1 VIEW (PORTABLE) Routine Exams 10/12/21 12:25 Completed Assessment/Plan (1) Pneumonia due to COVID-19 virus Current Visit: Yes Status: Acute Assessment & Plan: Chief Complaint Diagnosis vomiting, dehydration, hypoglycemia, hypokalemia Allergies Allergy/AdvReac Type Severity Reaction Status Date / Time morphine Allergy Severe anaphylaxis Verified 10/12/21 03:36 adhesive Allergy Mild Blisters Verified 10/12/21 03:36 aspirin Allergy Difficulty Verified 10/12/21 03:36 Breathing Penicillins Allergy Rash Verified 10/12/21 03:36 povidone-iodine Allergy BLISTERES Verified 10/12/21 03:36 [From Betadine] soap [From Betadine] Allergy Blisters Verified 10/12/21 03:36 Vital Signs (Last 24 hours) Temp Pulse Resp BP Pulse Ox 10/13/21 07:21 97.5 F 60 21 161/71 91 L 10/13/21 06:00 19 10/13/21 05:40 60 19 10/13/21 04:00 19 10/13/21 03:54 98.2 F 58 L 19 156/67 96 10/13/21 02:00 57 L 19 10/13/21 00:00 98.0 F 63 16 168/68 94 L 10/12/21 22:00 16 10/12/21 20:00 98.2 F 57 L 16 179/72 96 10/12/21 18:00 17 10/12/21 17:55 56 L 17 94 L 10/12/21 16:00 98.7 F 59 L 29 H 166/70 95 10/12/21 14:00 56 L 22 94 L 10/12/21 12:00 98.0 F 54 L 23 156/72 91 L 10/12/21 10:00 53 L 24 Home Medications Medication Instructions Recorded Confirmed Last Taken Type Allopurinol 100 mg [Zyloprim 10 mg PO DAILY 10/12/21 10/12/21 Unknown History 100 mg] Insulin Lispro [Humalog] 23 unit SQ QHS 10/12/21 10/12/21 Unknown History Memantine HCl 5 mg [Namenda 5 10 mg PO BID 10/12/21 10/12/21 Unknown History MG] Current Medications Generic Name Dose Route Start Last Admin Trade Name Freq PRN Reason Stop Dose Admin Amiodarone HCl 200 mg 10/12/21 14:00 10/12/21 14:47 Amiodarone Hcl 200 Mg Tab PO 11/11/21 13:59 Not Given DAILY JAMAL Apixaban 5 mg 10/12/21 14:00 10/12/21 22:27 Apixaban 2.5 Mg Tablet PO 11/11/21 13:59 Not Given BID JAMAL Aspirin 81 mg 10/12/21 14:00 10/12/21 14:47 Aspirin 81 Mg Tablet.Ec PO 11/11/21 13:59 Not Given DAILY JAMAL Carvedilol 3.125 mg 10/12/21 14:00 10/12/21 22:27 Carvedilol 3.125 Mg Tablet PO 11/11/21 13:59 Not Given BID JAMAL Remdesivir 100 mg/ Sodium 100 mls @ 100 mls/hr 10/13/21 10:00 Chloride IV 10/16/21 10:59 Q24H JAMAL Potassium Chloride/Sodium Chloride 1,000 mls @ 100 mls/hr 10/12/21 15:30 10/13/21 03:00 Sodium Chloride 0.9% W/ 20 Meq Kcl/Liter IV 11/11/21 15:29 100 mls/hr .Q10H JAMAL Administration Insulin Human Lispro 0 unit 10/12/21 11:12 Insulin Lispro 1 Unit SQ 11/11/21 11:11 UD PRN HYPERGLYCEMIA Losartan Potassium 100 mg 10/13/21 10:00 Losartan Potassium 50 Mg Tablet PO 11/12/21 09:59 DAILY JAMAL Ondansetron HCl 4 mg 10/12/21 21:06 10/13/21 04:13 Ondansetron Hcl 4 Mg/2 Ml Vial IV 11/11/21 21:05 4 mg Q6H PRN PRN Administration NAUSEA/VOMITING Pantoprazole Sodium 40 mg 10/12/21 11:15 10/12/21 12:27 Pantoprazole 40 Mg Vial IV 11/11/21 11:14 40 mg Q24H JAMAL Administration Pregabalin 100 mg 10/12/21 14:00 10/12/21 22:27 Pregabalin 100 Mg Capsule PO 11/11/21 13:59 Not Given BID JAMAL Sertraline HCl 50 mg 10/12/21 14:00 10/12/21 14:48 Sertraline Hcl 50 Mg Tab PO 11/11/21 13:59 Not Given DAILY JAMAL Discontinued Medications Generic Name Dose Route Start Last Admin Trade Name Freq PRN Reason Stop Dose Admin Hyaluronidase 150 units 10/12/21 21:00 10/12/21 21:15 Hyaluronidase 150 Units Vial SQ 10/12/21 21:01 150 units STAT ONE Administration Sodium Chloride 1,000 mls @ 100 mls/hr 10/12/21 03:45 10/12/21 04:02 Sodium Chloride 0.9% 1000 Ml IV 11/11/21 03:44 100 mls/hr .Q10H JAMAL Administration Magnesium Sulfate/Dextrose 100 mls @ 100 mls/hr 10/12/21 04:15 10/12/21 12:14 Magnesium 1 Gm / 100 Ml D5w IV 10/12/21 06:14 Not Given Q1H JAMAL Potassium Chloride 20 meq in 100 mls @ 50 mls/hr 10/12/21 04:15 10/12/21 09:24 Potassium Chloride 20 Meq In Water 100ml IV 10/12/21 08:14 50 mls/hr Q2H JAMAL Administration Dextrose/Sodium Chloride 1,000 mls @ 100 mls/hr 10/12/21 04:30 10/12/21 19:30 Dextrose 5% -0.45 Nacl 1000 Ml IV 11/11/21 04:29 Not Given .Q10H JAMAL Sodium Chloride Confirm 10/12/21 04:01 Sodium Chloride 0.9% 1000 Ml Administered 10/12/21 04:02 Dose 1,000 mls @ ud .ROUTE .STK-MED ONE Sodium Chloride 1,000 mls @ 100 mls/hr 10/12/21 06:44 10/12/21 19:30 Sodium Chloride 0.9% 1000 Ml IV 11/11/21 06:43 Not Given .Q10H JAMAL Remdesivir 200 mg/ Sodium 250 mls @ 125 mls/hr 10/12/21 12:00 10/12/21 12:26 Chloride IV 10/12/21 13:59 125 mls/hr ONCE ONE Administration Intake & Output (Last 24 hours) 10/10/21 10/11/21 10/12/21 10/13/21 11:59 11:59 11:59 11:59 Intake Total 120 2777 Output Total 300 Balance 120 2477 Weight 120.4 kg Microbiology Results (Last 24 hours) 10/12/21 06:29 Urine, Void Urine Culture - Pending Laboratory Results (Last 24 hours) 10/13/21 10/13/21 10/13/21 06:40 05:20 05:20 WBC 5.2 RBC 4.23 Hgb 11.4 L Hct 38.0 MCV 89.8 MCH 27.0 MCHC 30.0 L RDW 17.6 H Plt Count 171 MPV 11.1 H Gran % 66.6 H Immature Gran % (Auto) 0.2 Nucleat RBC Rel Count 0.0 Eos # (Auto) 0.08 Immature Gran # (Auto) 0.01 Absolute Lymphs (auto) 1.30 Absolute Monos (auto) 0.32 Absolute Nucleated RBC 0.00 Lymphocytes % 25.2 Monocytes % 6.2 Eosinophils % 1.6 Basophils % 0.2 Absolute Granulocytes 3.43 Basophils # 0.01 Sodium 140 Potassium 4.1 Chloride 109 H Carbon Dioxide 26 Anion Gap 8.4 BUN 8 Creatinine 0.72 Estimated GFR > 60.0 Glucose 175 H POC Glucometer 171 H Calcium 7.8 L Total Bilirubin 0.60 AST 27 ALT 20 Alkaline Phosphatase 83 Troponin I Serum Total Protein 5.5 L Albumin 2.8 L Prealbumin Procalcitonin TSH 3rd Generation 10/12/21 10/12/21 10/12/21 21:21 20:00 16:56 WBC RBC Hgb Hct MCV MCH MCHC RDW Plt Count MPV Gran % Immature Gran % (Auto) Nucleat RBC Rel Count Eos # (Auto) Immature Gran # (Auto) Absolute Lymphs (auto) Absolute Monos (auto) Absolute Nucleated RBC Lymphocytes % Monocytes % Eosinophils % Basophils % Absolute Granulocytes Basophils # Sodium 139 Potassium 3.5 Chloride 107 Carbon Dioxide 28 Anion Gap 7.2 BUN 8 Creatinine 0.73 Estimated GFR > 60.0 Glucose 198 H POC Glucometer 202 H 205 H Calcium 8.0 L Total Bilirubin AST ALT Alkaline Phosphatase Troponin I Serum Total Protein Albumin Prealbumin Procalcitonin TSH 3rd Generation 10/12/21 10/12/21 10/12/21 16:05 13:29 13:23 WBC RBC Hgb Hct MCV MCH MCHC RDW Plt Count MPV Gran % Immature Gran % (Auto) Nucleat RBC Rel Count Eos # (Auto) Immature Gran # (Auto) Absolute Lymphs (auto) Absolute Monos (auto) Absolute Nucleated RBC Lymphocytes % Monocytes % Eosinophils % Basophils % Absolute Granulocytes Basophils # Sodium Potassium 3.5 D Chloride Carbon Dioxide Anion Gap BUN Creatinine Estimated GFR Glucose POC Glucometer Calcium Total Bilirubin AST ALT Alkaline Phosphatase Troponin I < 0.012 < 0.012 Serum Total Protein Albumin Prealbumin Procalcitonin TSH 3rd Generation 10/12/21 10/12/21 10/12/21 11:51 09:40 09:40 WBC RBC Hgb Hct MCV MCH MCHC RDW Plt Count MPV Gran % Immature Gran % (Auto) Nucleat RBC Rel Count Eos # (Auto) Immature Gran # (Auto) Absolute Lymphs (auto) Absolute Monos (auto) Absolute Nucleated RBC Lymphocytes % Monocytes % Eosinophils % Basophils % Absolute Granulocytes Basophils # Sodium Potassium Chloride Carbon Dioxide Anion Gap BUN Creatinine Estimated GFR Glucose POC Glucometer 150 H Calcium Total Bilirubin AST ALT Alkaline Phosphatase Troponin I < 0.012 Serum Total Protein Albumin Prealbumin Procalcitonin 0.073 TSH 3rd Generation 10/12/21 10/12/21 10/12/21 08:29 07:06 07:06 WBC 5.5 RBC 4.31 Hgb 11.9 L Hct 39.4 MCV 91.4 MCH 27.6 MCHC 30.2 L RDW 17.1 H Plt Count 163 MPV 12.1 H Gran % Immature Gran % (Auto) Nucleat RBC Rel Count Eos # (Auto) Immature Gran # (Auto) Absolute Lymphs (auto) Absolute Monos (auto) Absolute Nucleated RBC Lymphocytes % Monocytes % Eosinophils % Basophils % Absolute Granulocytes Basophils # Sodium 140 Potassium 2.6 L* Chloride 106 Carbon Dioxide 25 Anion Gap 10.9 BUN 12 Creatinine 0.78 Estimated GFR > 60.0 Glucose 100 POC Glucometer Calcium 8.6 Total Bilirubin AST ALT Alkaline Phosphatase Troponin I Serum Total Protein Albumin Prealbumin 11.52 L Procalcitonin TSH 3rd Generation 1.300 Orders (Last 24 hours) Category Date Time Status POCT Glucose Check ACHS Care 10/12/21 10:45 Active CHEST 1 VIEW (PORTABLE) Routine Exams 10/12/21 12:25 Completed BMP Routine Lab 10/12/21 20:00 Completed CBC W DIFF AM.LAB Lab 10/13/21 05:20 Completed CMP AM.LAB Lab 10/13/21 05:20 Completed POCT GLUCOSE Stat Lab 10/12/21 11:51 Completed POCT GLUCOSE Stat Lab 10/12/21 16:56 Completed POCT GLUCOSE Stat Lab 10/12/21 21:21 Completed POCT GLUCOSE Stat Lab 10/13/21 06:40 Completed PROCALCITONIN Routine Lab 10/12/21 09:40 Completed Potassium (Lab Test) [Potassium] Routine Lab 10/12/21 13:29 Completed TROPONIN Q3H Lab 10/12/21 09:40 Completed TROPONIN Q3H Lab 10/12/21 13:23 Completed TROPONIN Q3H Lab 10/12/21 16:05 Completed TSH [TSH, 3RD Generation] Routine Lab 10/12/21 08:29 Completed Amiodarone HCl 200 mg [Cordarone 200 MG] Med 10/12/21 14:00 Active 200 mg PO DAILY Apixaban [Eliquis 2.5 mg Tablet] Med 10/12/21 14:00 Active 5 mg PO BID Aspirin EC 81 mg [Ecotrin 81 mg] Med 10/12/21 14:00 Active 81 mg PO DAILY Carvedilol 3.125 mg [Coreg 3.125 MG] Med 10/12/21 14:00 Active 3.125 mg PO BID Hyaluronidase 150 Units [Hylenex 150 Units Injection Med 10/12/21 21:00 Discontinued ] 150 units SQ STAT ONE Insulin Lispro [Humalog] Med 10/12/21 11:12 Active See Dose Instructions SQ UD PRN Losartan Potassium 50 mg [Cozaar 50 MG] Med 10/13/21 10:00 Active 100 mg PO DAILY NaCl 0.9% 1000 ml + KCl 20 Meq [Sodium Chloride 0.9% W/ Med 10/12/21 15:30 Active 20 mEq KCl/LITER] 1,000 ml IV 100 mls/hr Ondansetron HCl 4 mg/2 ml [Zofran 4 MG/2 ML VIAL] Med 10/12/21 21:06 Active 4 mg IV Q6H PRN PRN Pantoprazole 40 mg [Protonix 40 mg IV] Med 10/12/21 11:15 Active 40 mg IV Q24H Pregabalin [Lyrica 100Mg] Med 10/12/21 14:00 Active 100 mg PO BID Remdesivir 100 mg Med 10/13/21 10:00 Active NaCl 0.9% [Sodium Chloride 0.9%] 100 ml IV Q24H Remdesivir 200 mg Med 10/12/21 12:00 Discontinued NaCl 0.9% 250 ml [Sodium Chloride 0.9% 250 ML] 250 ml IV ONCE Sertraline HCl 50 mg [Zoloft 50 mg Tablet] Med 10/12/21 14:00 Active 50 mg PO DAILY Oxygen Nasal Cannula 3 lpm RT 10/13/21 05:20 Active Patient Care Notes (Last 24 hours) 10/13/21 00:19 Nursing Note by Mellisa Shukla This nurse contacted Dr. Mckeon at 2100 and notified him of IV infiltration (see previous note) and patient c/o nausea. Order received for PRN zofran. Initialized on 10/13/21 00:19 - END OF NOTE 10/13/21 00:16 Nursing Note by Mellisa Shukla At approximately 2030, IV infiltrated with NS w/ 20KCL infusing at 100mL/hr. This nurse notified [facility] who spoke with pharmacist sand control worker. Dr. Mckeon also notified. Order received to administer hylenex 150 [facility] units/mL subcutaneous - 0.2mL x 5 injections throughout site of extravasation. IV catheter left in place. Attempted to aspirate fluid, and 0.25mL clear fluid removed. IV catheter then removed - tip intact - and hylenex administered at 2115. Verbally discussed education regarding IV infiltration with patient including need for hylenex injections. Initialized on 10/13/21 00:16 - END OF NOTE 10/12/21 15:16 Nursing Note by Jewel Shields CALLED DR WARD TO REPORT K LEVEL. NEW ORDER TO CHANGE IVF TO NS+20K @100ML/HR, BMP BERYLIGHT AT 1999 Initialized on 10/12/21 15:16 - END OF NOTE 10/12/21 12:14 Nursing Note by Jewel Shields SPOKE TO DR WARD BOUT MAG RIDER, STATES NOT TO GIVE SECOND RIDER Initialized on 10/12/21 12:14 - END OF NOTE 10/12/21 10:52 (created 10/12/21 10:59) Nursing Note by Veronique Lipscomb FAXED RECORDS TO [facility] Initialized on 10/12/21 10:59 - END OF NOTE Code(s): U07.1 - COVID-19; J12.82 - PNEUMONIA DUE TO CORONAVIRUS DISEASE 2019 (2) COVID-19 Current Visit: Yes Status: Acute Code(s): U07.1 - COVID-19 (3) Vomiting Current Visit: Yes Status: Acute Qualifiers: Vomiting type: unspecified Nausea presence: with nausea Qualified Code(s): R11.2 - Nausea with vomiting, unspecified Code(s): R11.10 - VOMITING, UNSPECIFIED (4) Acute renal insufficiency Current Visit: Yes Status: Acute Code(s): N28.9 - DISORDER OF KIDNEY AND URETER, UNSPECIFIED
[2021-10-13] MEDS ORDERED: BABY ASPIRIN 81 MG CHEW PO SCH (10:00)
[2021-10-13] MEDS ORDERED: NON-FORMULARY ITEM (Losartan Potassium [Losartan Potassium] 100 MG Tablet) PO SCH (10:00)
[2021-10-13] MEDS: Cozaar 50 MG PO SCH (10:22)
[2021-10-13] MEDS: ECOTRIN 81 MG PO SCH (10:22)
[2021-10-13] MEDS: Coreg 3.125 MG PO SCH ×2 (10:22→22:39)
[2021-10-13] MEDS: Cordarone 200 MG PO SCH (10:22)
[2021-10-13] MEDS: LYRICA 100MG PO SCH ×2 (10:23→22:39)
[2021-10-13] MEDS: ZOLOFT 50 MG TABLET PO SCH (10:23)
[2021-10-13] MEDS: ELIQUIS 2.5 MG TABLET PO SCH (10:23)
[2021-10-13] MEDS ORDERED: Phenergan 25 MG INJ ONE (10:32)
[2021-10-13] MEDS ORDERED: Hydromorphone 1 mg/ml Injection ONE (10:33)
[2021-10-13] MEDS ORDERED: Sodium Chloride 0.9% 100 ML ONE (10:33)
[2021-10-13] MEDS: Hydromorphone 1 mg/ml Injection IV PRN ×2 (10:40→22:05)
[2021-10-13] MEDS: PROTONIX 40 MG IV IV SCH (10:42)
[2021-10-13] MEDS: Phenergan 25 MG INJ*** 12.5 MG in Sodium Chloride 0.9% 100 ML IV PRN ×2 (10:42→22:05)
[2021-10-13] MEDS: ENOXAPARIN SODIUM SQ SCH (10:42)
[2021-10-13] MEDS: REMDESIVIR 100 MG in Sodium Chloride 0.9% 100 ML IV SCH (11:45)
--- NOTE | 2021-10-14 07:08 | PCM.NOTE ---
Date and Time: 10/14/21706 Subjective Assessment: doing better - Review of Systems Constitutional: No Fever, No Chills Eyes: No Symptoms Ears, Nose, & Throat: No Symptoms Respiratory: No Cough, No Short Of Breath Cardiac: No Chest Pain, No Edema, No Syncope Abdominal/Gastrointestinal: Nausea, No Abdominal Pain, No Vomiting, No Diarrhea Genitourinary Symptoms: No Dysuria Musculoskeletal: No Back Pain, No Neck Pain Skin: No Rash Neurological: No Dizziness, No Focal Weakness, No Sensory Changes Psychological: No Symptoms Endocrine: No Symptoms Hematologic/Lymphatic: No Symptoms Immunological/Allergic: No Symptoms Objective Exam General Appearance: no apparent distress, alert Neurologic Exam: alert, oriented x 3, cooperative, normal mood/affect, nml cerebellar function, sensation nml, No motor deficits Skin Exam: normal color, warm, dry Eye Exam: PERRL, EOMI, eyes nml inspection Ears, Nose, Throat Exam: normal ENT inspection, pharynx normal, moist mucous membranes Neck Exam: normal inspection, non-tender, supple, full range of motion Respiratory Exam: normal breath sounds, lungs clear, No respiratory distress Cardiovascular Exam: regular rate/rhythm, normal heart sounds Gastrointestinal/Abdomen Exam: soft, No tenderness, No mass Extremity Exam: normal inspection, normal range of motion Back Exam: normal inspection, normal range of motion, No CVA tenderness, No vertebral tenderness Pelvic Exam: deferred Rectal Exam: deferred OBJECTIVE DATA Vital Signs: Vital Signs - 24 hr Temp Pulse Resp BP Pulse Ox 10/14/21 06:51 97.7 F 73 20 161/68 90 L 10/14/21 04:00 99.3 F 74 17 156/70 90 L 10/14/21 00:00 99.8 F 68 22 162/67 91 L 10/13/21 20:00 98.6 F 62 19 163/72 92 L 10/13/21 19:43 92 L 10/13/21 17:52 18 10/13/21 16:00 98 F 66 18 155/64 93 L 10/13/21 14:00 17 10/13/21 11:41 97.7 F 58 L 19 158/78 94 L 10/13/21 09:01 92 L 10/13/21 07:21 97.5 F 60 21 161/71 91 L Pain Assessment - Last Documented Pain Intensity 0 Pain Scale Used FLACC Intake and Output: Intake & Output 10/11/21 10/12/21 10/13/21 10/14/21 11:59 11:59 11:59 11:59 Intake Total 120 2777 1824 Output Total 300 Balance 120 2477 1824 Weight 120.4 kg Lab Results: Lab Results-Last 24 Hours 10/13/21 10/13/21 10/13/21 Range/Units 10:47 16:48 20:32 POC Glucometer 200 H 136 H 167 H (74 to 106) mg/dL 10/14/21 Range/Units 06:44 POC Glucometer 209 H (74 to 106) mg/dL Radiology Exams: Radiology Procedures Category Date Time Status CHEST 1 VIEW (PORTABLE) Routine Exams 10/12/21 12:25 Completed Assessment/Plan (1) Pneumonia due to COVID-19 virus Current Visit: Yes Status: Acute Code(s): U07.1 - COVID-19; J12.82 - PNEUMONIA DUE TO CORONAVIRUS DISEASE 2019 (2) COVID-19 Current Visit: Yes Status: Acute Code(s): U07.1 - COVID-19 (3) Vomiting Current Visit: Yes Status: Acute Qualifiers: Vomiting type: unspecified Nausea presence: with nausea Qualified Code(s): R11.2 - Nausea with vomiting, unspecified Code(s): R11.10 - VOMITING, UNSPECIFIED (4) Acute renal insufficiency Current Visit: Yes Status: Acute Code(s): N28.9 - DISORDER OF KIDNEY AND URETER, UNSPECIFIED
[2021-10-14] MEDS: VENTOLIN COMMON CANISTER IH PRN ×3 (08:11→19:38)
[2021-10-14] MEDS: Hydromorphone 1 mg/ml Injection IV PRN ×3 (08:14→21:19)
[2021-10-14] MEDS: Cordarone 200 MG PO SCH (08:14)
[2021-10-14] MEDS: Cozaar 50 MG PO SCH (08:15)
[2021-10-14] MEDS: ECOTRIN 81 MG PO SCH (08:15)
[2021-10-14] MEDS: Coreg 3.125 MG PO SCH ×3 (09:26→20:29)
[2021-10-14] MEDS: LYRICA 100MG PO SCH ×3 (09:26→20:29)
[2021-10-14] MEDS: ZOLOFT 50 MG TABLET PO SCH ×2 (09:26→12:35)
[2021-10-14] MEDS: ENOXAPARIN SODIUM SQ SCH (09:27)
[2021-10-14] MEDS: REMDESIVIR 100 MG in Sodium Chloride 0.9% 100 ML IV SCH (09:29)
[2021-10-14] MEDS ORDERED: ENOXAPARIN SODIUM SQ SCH (10:00)
[2021-10-14] MEDS: Sodium Chloride 0.9% W/ 20 mEq KCl/LITER 1,000 ML IV SCH (10:56)
[2021-10-14] MEDS: PROTONIX 40 MG IV IV SCH (11:56)
[2021-10-14] MEDS: Zofran 4 MG/2 ML VIAL IV PRN (12:28)
[2021-10-14] MEDS: Decadron 4 MG INJ IV SCH (14:31)
[2021-10-14] MEDS: OLUMIANT PO SCH (14:36)
[2021-10-14] MEDS: HUMALOG SQ PRN (20:45)
[2021-10-15] MEDS: Sodium Chloride 0.9% W/ 20 mEq KCl/LITER 1,000 ML IV SCH (01:58)
[2021-10-15 05:15] LABS: Absolute Neutrophil Ct (ANC) 5.29 x10^3/uL (1.4-6.9); Basophil (Absolute #) 0.01 x10^3/uL (0-0.4); Eosinophil (Absolute #) 0 x10^3/uL (0-0.5); Hematocrit 37.9 % (35-47); Hemoglobin 11.3 g/dL (12.0-16.0); Lymphocyte (Absolute #) 0.61 x10^3/uL (1.0-4.6); Mean Cell Volume 91.3 fL (78-100); Mean Corpuscular Hemoglobin 27.2 pg (26-32); Mean Corpuscular Hgb Concent. 29.8 g/dL (32-36); Mean Platelet Volume 11.2 fL (7.5-11.0); Monocyte (Absolute #) 0.19 x10^3/uL (0.0-1.3); Monocytes % 3.1 % (0.0-12.0); Neutrophil % 86.2 % (36.0-66.0); Platelet Count 175 x10^3/uL (150-450); Red Blood Count 4.15 x10^6/uL (4.1-5.4); Red Cell Distribution Width 17.9 % (11.5-14.0); White Blood Count 6.1 x10^3/uL (4.0-10.5)
[2021-10-15 05:45] LABS: ALBUMIN 2.8 g/dL (3.5-5.0); ALKALINE PHOSPHATASE 89 U/L (38-126); ANION GAP 9.3 MEQ/L (5-15); BLOOD UREA NITROGEN 11 mg/dL (7-17); CHLORIDE 107 mmol/L (98-107); Calcium 7.9 mg/dL (8.4-10.2); Carbon Dioxide 26 mmol/L (22-30); Creatinine 1 0.73 mg/dL (0.52-1.04); EST GLOMERULAR FILTRATION RATE > 60.0 ML/MIN; Glucose 378 mg/dL (74-106); NT PRO BNP 4380 pg/mL (0-900); Potassium 4.8 mmol/L (3.5-5.1); SGOT/AST 23 U/L (14-36); SGPT/ALT 21 U/L (0-35); SODIUM 138 mmol/L (137-145); Total Protein 5.8 g/dL (6.3-8.2)
[2021-10-15] MEDS: Zofran 4 MG/2 ML VIAL IV PRN ×2 (08:28→18:36)
[2021-10-15] MEDS: HUMALOG SQ PRN ×4 (08:28→21:19)
[2021-10-15] MEDS: Hydromorphone 1 mg/ml Injection IV PRN ×3 (08:29→22:03)
--- NOTE | 2021-10-15 09:12 | XRAY ---
Indication: Follow-up Covid 19 pneumonia. Comparison: October 12, 2021. Portable chest demonstrates moderate worsening diffuse bilateral consolidating/nonconsolidating airspace disease greatest in both lower lobes. Stable left upper lobe subsegmental atelectasis/scarring. Heart not enlarged.
[2021-10-15] MEDS: Decadron 4 MG INJ IV SCH (10:01)
[2021-10-15] MEDS: Cordarone 200 MG PO SCH (10:01)
[2021-10-15] MEDS: ECOTRIN 81 MG PO SCH (10:01)
[2021-10-15] MEDS: Coreg 3.125 MG PO SCH ×2 (10:02→22:03)
[2021-10-15] MEDS: OLUMIANT PO SCH (10:02)
[2021-10-15] MEDS: Cozaar 50 MG PO SCH (10:02)
[2021-10-15] MEDS: ENOXAPARIN SODIUM SQ SCH (10:02)
[2021-10-15] MEDS: LYRICA 100MG PO SCH ×2 (10:02→22:03)
[2021-10-15] MEDS: ZOLOFT 50 MG TABLET PO SCH (10:02)
[2021-10-15] MEDS: PROTONIX 40 MG IV IV SCH (10:05)
--- NOTE | 2021-10-15 12:14 | PCM.NOTE ---
Date and Time: 10/15/21 1211 Subjective Assessment: patient took her po meds this morning, currently on 6L nasal cannula, wears 3 at home chronically. she complains of shortness of breath, some nonproductive cough, admits to swelling and discomfort in her feet and legs Objective Exam General Appearance: no apparent distress, obese Neurologic Exam: alert, oriented x 3, cooperative Respiratory Exam: crackles/rales Cardiovascular Exam: regular rate/rhythm, normal heart sounds Gastrointestinal/Abdomen Exam: soft, No tenderness, No mass Extremity Exam: pedal edema, swelling OBJECTIVE DATA Vital Signs: Vital Signs - 24 hr Temp Pulse Resp BP Pulse Ox 10/15/21 11:39 97.9 F 59 L 16 180/79 94 L 10/15/21 11:00 63 20 93 L 10/15/21 10:00 63 12 94 L 10/15/21 09:20 60 20 96 10/15/21 09:00 63 14 94 L 10/15/21 07:47 98.1 F 59 L 16 186/74 89 L 10/15/21 06:53 54 L 19 91 L 10/15/21 06:00 55 L 16 92 L 10/15/21 05:00 53 L 15 92 L 10/15/21 04:00 97.1 F 54 L 17 186/83 92 L 10/15/21 02:56 56 L 16 91 L 10/15/21 02:00 54 L 13 92 L 10/15/21 01:00 55 L 20 93 L 10/14/21 23:58 97.7 F 71 14 178/76 90 L 10/14/21 22:59 69 17 91 L 10/14/21 22:00 77 16 89 L 10/14/21 21:00 74 14 89 L 10/14/21 20:00 97.5 F 72 16 179/79 91 L 10/14/21 19:38 75 19 93 L 10/14/21 18:08 67 18 97 10/14/21 18:00 18 10/14/21 16:31 98.6 F 61 21 165/72 92 L 10/14/21 15:35 91 L 10/14/21 14:36 20 92 L 10/14/21 14:00 70 20 88 L 10/14/21 13:37 24 Pain Assessment - Last Documented Pain Intensity 8 Pain Scale Used 0-10 Pain Scale Intake and Output: Intake & Output 10/13/21 10/14/21 10/15/21 10/16/21 11:59 11:59 11:59 11:59 Intake Total 2777 4 2910 Output Total 300 1050 Balance 2477 4 1860 Lab Results: Lab Results-Last 24 Hours 10/14/21 10/14/21 10/14/21 Range/Units 06:14 16:12 20:40 WBC (4.0-10.5) x10^3/uL RBC (4.1-5.4) x10^6/uL Hgb (12.0-16.0) g/dL Hct (35-47) % MCV (78-100) fL MCH (26-32) pg MCHC (32-36) g/dL RDW (11.5-14.0) % Plt Count (150-450) x10^3/uL MPV (7.5-11.0) fL Gran % (36.0-66.0) % Immature Gran % (Auto) (0.00-0.4) % Nucleat RBC Rel Count (0.00-0.1) % Eos # (Auto) (0-0.5) x10^3/uL Immature Gran # (Auto) (0.00-0.03) x10^3u/L Absolute Lymphs (auto) (1.0-4.6) x10^3/uL Absolute Monos (auto) (0.0-1.3) x10^3/uL Absolute Nucleated RBC (0.00-0.01) x10^3u/L Lymphocytes % (24.0-44.0) % Monocytes % (0.0-12.0) % Eosinophils % (0.00-5.0) % Basophils % (0.0-0.4) % Absolute Granulocytes (1.4-6.9) x10^3/uL Basophils # (0-0.4) x10^3/uL Sodium (137-145) mmol/L Potassium (3.5-5.1) mmol/L Chloride (98-107) mmol/L Carbon Dioxide (22-30) mmol/L Anion Gap (5-15) MEQ/L BUN (7-17) mg/dL Creatinine (0.52-1.04) mg/dL Estimated GFR ML/MIN Glucose (74-106) mg/dL POC Glucometer 211 H 312 H (74 to 106) mg/dL Hemoglobin A1c 8.04 H (4.5-6.0) % Calcium (8.4-10.2) mg/dL Total Bilirubin (0.2-1.3) mg/dL AST (14-36) U/L ALT (0-35) U/L Alkaline Phosphatase (38-126) U/L NT-Pro-B Natriuret Pep (0-900) pg/mL Serum Total Protein (6.3-8.2) g/dL Albumin (3.5-5.0) g/dL 10/15/21 10/15/21 10/15/21 Range/Units 04:55 04:55 07:24 WBC 6.1 (4.0-10.5) x10^3/uL RBC 4.15 (4.1-5.4) x10^6/uL Hgb 11.3 L (12.0-16.0) g/dL Hct 37.9 (35-47) % MCV 91.3 (78-100) fL MCH 27.2 (26-32) pg MCHC 29.8 L (32-36) g/dL RDW 17.9 H (11.5-14.0) % Plt Count 175 (150-450) x10^3/uL MPV 11.2 H (7.5-11.0) fL Gran % 86.2 H (36.0-66.0) % Immature Gran % (Auto) 0.5 H (0.00-0.4) % Nucleat RBC Rel Count 0.0 (0.00-0.1) % Eos # (Auto) 0 (0-0.5) x10^3/uL Immature Gran # (Auto) 0.03 (0.00-0.03) x10^3u/L Absolute Lymphs (auto) 0.61 L (1.0-4.6) x10^3/uL Absolute Monos (auto) 0.19 (0.0-1.3) x10^3/uL Absolute Nucleated RBC 0.00 (0.00-0.01) x10^3u/L Lymphocytes % 10.0 L (24.0-44.0) % Monocytes % 3.1 (0.0-12.0) % Eosinophils % 0.0 (0.00-5.0) % Basophils % 0.2 (0.0-0.4) % Absolute Granulocytes 5.29 (1.4-6.9) x10^3/uL Basophils # 0.01 (0-0.4) x10^3/uL Sodium 138 (137-145) mmol/L Potassium 4.8 (3.5-5.1) mmol/L Chloride 107 (98-107) mmol/L Carbon Dioxide 26 (22-30) mmol/L Anion Gap 9.3 (5-15) MEQ/L BUN 11 (7-17) mg/dL Creatinine 0.73 (0.52-1.04) mg/dL Estimated GFR > 60.0 ML/MIN Glucose 378 H (74-106) mg/dL POC Glucometer 331 H (74 to 106) mg/dL Hemoglobin A1c (4.5-6.0) % Calcium 7.9 L (8.4-10.2) mg/dL Total Bilirubin 0.80 (0.2-1.3) mg/dL AST 23 (14-36) U/L ALT 21 (0-35) U/L Alkaline Phosphatase 89 (38-126) U/L NT-Pro-B Natriuret Pep 4380 H (0-900) pg/mL Serum Total Protein 5.8 L (6.3-8.2) g/dL Albumin 2.8 L (3.5-5.0) g/dL 10/15/21 Range/Units 11:33 WBC (4.0-10.5) x10^3/uL RBC (4.1-5.4) x10^6/uL Hgb (12.0-16.0) g/dL Hct (35-47) % MCV (78-100) fL MCH (26-32) pg MCHC (32-36) g/dL RDW (11.5-14.0) % Plt Count (150-450) x10^3/uL MPV (7.5-11.0) fL Gran % (36.0-66.0) % Immature Gran % (Auto) (0.00-0.4) % Nucleat RBC Rel Count (0.00-0.1) % Eos # (Auto) (0-0.5) x10^3/uL Immature Gran # (Auto) (0.00-0.03) x10^3u/L Absolute Lymphs (auto) (1.0-4.6) x10^3/uL Absolute Monos (auto) (0.0-1.3) x10^3/uL Absolute Nucleated RBC (0.00-0.01) x10^3u/L Lymphocytes % (24.0-44.0) % Monocytes % (0.0-12.0) % Eosinophils % (0.00-5.0) % Basophils % (0.0-0.4) % Absolute Granulocytes (1.4-6.9) x10^3/uL Basophils # (0-0.4) x10^3/uL Sodium (137-145) mmol/L Potassium (3.5-5.1) mmol/L Chloride (98-107) mmol/L Carbon Dioxide (22-30) mmol/L Anion Gap (5-15) MEQ/L BUN (7-17) mg/dL Creatinine (0.52-1.04) mg/dL Estimated GFR ML/MIN Glucose (74-106) mg/dL POC Glucometer 367 H (74 to 106) mg/dL Hemoglobin A1c (4.5-6.0) % Calcium (8.4-10.2) mg/dL Total Bilirubin (0.2-1.3) mg/dL AST (14-36) U/L ALT (0-35) U/L Alkaline Phosphatase (38-126) U/L NT-Pro-B Natriuret Pep (0-900) pg/mL Serum Total Protein (6.3-8.2) g/dL Albumin (3.5-5.0) g/dL Radiology Exams: Radiology Procedures Category Date Time Status Portable Chest [CHEST 1 VIEW (PORTABLE)] Routine Exams 10/15/21 06:00 Completed Multi-Disciplinary Progress Notes: Multi-Disciplinary Progress Notes 10/15/21 10:23 Case Management Note by Radha Grullon PATIENT MORE ACUTELY ILL- WILL HOD ANY FURTHER DC PLANNING ASSESSEMENTS UNTIL IMPROVEMENT NOTED AND CLOSER TO TIME OF DC Initialized on 10/15/21 10:23 - END OF NOTE Assessment/Plan (1) COVID-19 Current Visit: Yes Status: Acute Assessment & Plan: on baricitinab and remdesivir in addition to IV decadron, will lock fluids. 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
[2021-10-15] MEDS: REMDESIVIR 100 MG in Sodium Chloride 0.9% 100 ML IV SCH (12:46)
[2021-10-15] MEDS: Lasix 40 MG/4 ML IV SCH ×2 (12:50→23:53)
[2021-10-15] MEDS: VENTOLIN COMMON CANISTER IH PRN (21:02)
[2021-10-15] MEDS: Klor Con PO SCH (22:03)
[2021-10-16 05:37] LABS: Absolute Neutrophil Ct (ANC) 7.38 x10^3/uL (1.4-6.9); Basophil (Absolute #) 0.01 x10^3/uL (0-0.4); Eosinophil (Absolute #) 0 x10^3/uL (0-0.5); Hematocrit 37.5 % (35-47); Hemoglobin 11.4 g/dL (12.0-16.0); Lymphocytes % 8.3 % (24.0-44.0); Mean Cell Volume 89.9 fL (78-100); Mean Corpuscular Hemoglobin 27.3 pg (26-32); Mean Corpuscular Hgb Concent. 30.4 g/dL (32-36); Mean Platelet Volume 10.9 fL (7.5-11.0); Monocyte (Absolute #) 0.32 x10^3/uL (0.0-1.3); Monocytes % 3.8 % (0.0-12.0); Neutrophil % 87.3 % (36.0-66.0); Platelet Count 197 x10^3/uL (150-450); Red Blood Count 4.17 x10^6/uL (4.1-5.4); Red Cell Distribution Width 17.5 % (11.5-14.0); White Blood Count 8.5 x10^3/uL (4.0-10.5)
[2021-10-16 06:15] LABS: ANION GAP 10.1 MEQ/L (5-15); BLOOD UREA NITROGEN 20 mg/dL (7-17); CHLORIDE 100 mmol/L (98-107); Calcium 7.9 mg/dL (8.4-10.2); Carbon Dioxide 27 mmol/L (22-30); Creatinine 1 0.82 mg/dL (0.52-1.04); EST GLOMERULAR FILTRATION RATE > 60.0 ML/MIN; NT PRO BNP 3840 pg/mL (0-900); Potassium 4.7 mmol/L (3.5-5.1); SODIUM 133 mmol/L (137-145)
[2021-10-16 06:47] LABS: Glucose 536 mg/dL (74-106)
[2021-10-16] MEDS: HUMALOG SQ PRN ×5 (06:52→22:40)
[2021-10-16] MEDS: ZOLOFT 50 MG TABLET PO SCH (08:31)
[2021-10-16] MEDS: ECOTRIN 81 MG PO SCH (08:31)
[2021-10-16] MEDS: Klor Con PO SCH ×2 (08:31→22:41)
[2021-10-16] MEDS: Coreg 3.125 MG PO SCH ×2 (08:32→22:40)
[2021-10-16] MEDS: OLUMIANT PO SCH (08:32)
[2021-10-16] MEDS: Cordarone 200 MG PO SCH (08:32)
[2021-10-16] MEDS: LYRICA 100MG PO SCH ×2 (08:32→22:40)
[2021-10-16] MEDS: Cozaar 50 MG PO SCH (08:33)
[2021-10-16] MEDS: DECADRON 10MG INJ. IV SCH (08:36)
[2021-10-16] MEDS: PROTONIX 40 MG IV IV SCH (08:37)
[2021-10-16] MEDS: ENOXAPARIN SODIUM SQ SCH (08:37)
[2021-10-16] MEDS: REMDESIVIR 100 MG in Sodium Chloride 0.9% 100 ML IV SCH (08:38)
[2021-10-16] MEDS: Zofran 4 MG/2 ML VIAL IV PRN (08:43)
--- NOTE | 2021-10-16 08:59 | PCM.NOTE ---
Date and Time: 10/16/21855 Subjective Assessment: patient still c/o cough and some shortness of breath but feels she is improving. Objective Exam General Appearance: no apparent distress, obese Neurologic Exam: alert, oriented x 3 Respiratory Exam: crackles/rales Cardiovascular Exam: regular rate/rhythm, normal heart sounds Gastrointestinal/Abdomen Exam: soft, No tenderness, No mass OBJECTIVE DATA Vital Signs: Vital Signs - 24 hr Temp Pulse Resp BP BP Pulse Ox 10/16/21 07:57 52 L 18 93 L 10/16/21 07:29 97.9 F 58 L 15 199/85 92 L 10/16/21 07:00 57 L 17 92 L 10/16/21 06:00 52 L 17 92 L 10/16/21 05:00 53 L 17 93 L 10/16/21 04:00 97.1 F 50 L 16 162/71 92 L 10/16/21 03:00 51 L 17 94 L 10/16/21 02:00 52 L 15 93 L 10/16/21 01:00 52 L 16 94 L 10/16/21 00:00 97.8 F 62 17 162/69 92 L 10/15/21 23:00 63 17 90 L 10/15/21 22:00 67 19 92 L 10/15/21 21:02 76 22 92 L 10/15/21 21:00 70 16 88 L 10/15/21 20:00 97.7 F 66 22 152/71 93 L 10/15/21 18:00 74 14 93 L 10/15/21 17:00 65 14 93 L 10/15/21 16:00 98.2 F 62 16 184/77 91 L 10/15/21 15:00 62 23 93 L 10/15/21 14:00 60 21 91 L 10/15/21 13:00 63 16 90 L 10/15/21 11:39 97.9 F 59 L 16 180/79 94 L 10/15/21 11:00 63 20 93 L 10/15/21 10:00 63 12 94 L 10/15/21 09:20 60 20 96 10/15/21 09:00 63 14 94 L Pain Assessment - Last Documented Pain Intensity 0 Pain Scale Used 0-10 Pain Scale Intake and Output: Intake & Output 10/13/21 10/14/21 10/15/21 10/16/21 11:59 11:59 11:59 11:59 Intake Total 1675 9098 4898 1656 Output Total 300 7800 1540 Balance 2477 3 3934 -0648 Lab Results: Lab Results-Last 24 Hours 10/15/21 10/15/21 10/15/21 Range/Units 11:33 16:33 21:14 WBC (4.0-10.5) x10^3/uL RBC (4.1-5.4) x10^6/uL Hgb (12.0-16.0) g/dL Hct (35-47) % MCV (78-100) fL MCH (26-32) pg MCHC (32-36) g/dL RDW (11.5-14.0) % Plt Count (150-450) x10^3/uL MPV (7.5-11.0) fL Gran % (36.0-66.0) % Immature Gran % (Auto) (0.00-0.4) % Nucleat RBC Rel Count (0.00-0.1) % Eos # (Auto) (0-0.5) x10^3/uL Immature Gran # (Auto) (0.00-0.03) x10^3u/L Absolute Lymphs (auto) (1.0-4.6) x10^3/uL Absolute Monos (auto) (0.0-1.3) x10^3/uL Absolute Nucleated RBC (0.00-0.01) x10^3u/L Lymphocytes % (24.0-44.0) % Monocytes % (0.0-12.0) % Eosinophils % (0.00-5.0) % Basophils % (0.0-0.4) % Absolute Granulocytes (1.4-6.9) x10^3/uL Basophils # (0-0.4) x10^3/uL Sodium (137-145) mmol/L Potassium (3.5-5.1) mmol/L Chloride (98-107) mmol/L Carbon Dioxide (22-30) mmol/L Anion Gap (5-15) MEQ/L BUN (7-17) mg/dL Creatinine (0.52-1.04) mg/dL Estimated GFR ML/MIN Glucose (74-106) mg/dL POC Glucometer 367 H 421 H 489 H (74 to 106) mg/dL Calcium (8.4-10.2) mg/dL NT-Pro-B Natriuret Pep (0-900) pg/mL 10/16/21 10/16/21 10/16/21 Range/Units 05:00 05:00 08:13 WBC 8.5 (4.0-10.5) x10^3/uL RBC 4.17 (4.1-5.4) x10^6/uL Hgb 11.4 L (12.0-16.0) g/dL Hct 37.5 (35-47) % MCV 89.9 (78-100) fL MCH 27.3 (26-32) pg MCHC 30.4 L (32-36) g/dL RDW 17.5 H (11.5-14.0) % Plt Count 197 (150-450) x10^3/uL MPV 10.9 (7.5-11.0) fL Gran % 87.3 H (36.0-66.0) % Immature Gran % (Auto) 0.5 H (0.00-0.4) % Nucleat RBC Rel Count 0.0 (0.00-0.1) % Eos # (Auto) 0 (0-0.5) x10^3/uL Immature Gran # (Auto) 0.04 H (0.00-0.03) x10^3u/L Absolute Lymphs (auto) 0.70 L (1.0-4.6) x10^3/uL Absolute Monos (auto) 0.32 (0.0-1.3) x10^3/uL Absolute Nucleated RBC 0.00 (0.00-0.01) x10^3u/L Lymphocytes % 8.3 L (24.0-44.0) % Monocytes % 3.8 (0.0-12.0) % Eosinophils % 0.0 (0.00-5.0) % Basophils % 0.1 (0.0-0.4) % Absolute Granulocytes 7.38 H (1.4-6.9) x10^3/uL Basophils # 0.01 (0-0.4) x10^3/uL Sodium 133 L (137-145) mmol/L Potassium 4.7 (3.5-5.1) mmol/L Chloride 100 (98-107) mmol/L Carbon Dioxide 27 (22-30) mmol/L Anion Gap 10.1 (5-15) MEQ/L BUN 20 H (7-17) mg/dL Creatinine 0.82 (0.52-1.04) mg/dL Estimated GFR > 60.0 ML/MIN Glucose 536 H* (74-106) mg/dL POC Glucometer 442 H (74 to 106) mg/dL Calcium 7.9 L (8.4-10.2) mg/dL NT-Pro-B Natriuret Pep 3840 H (0-900) pg/mL Radiology Exams: Radiology Procedures Category Date Time Status Portable Chest [CHEST 1 VIEW (PORTABLE)] Routine Exams 10/15/21 06:00 Completed Multi-Disciplinary Progress Notes: Multi-Disciplinary Progress Notes 10/15/21 10:23 Case Management Note by Radha Grullon PATIENT MORE ACUTELY ILL- WILL HOD ANY FURTHER DC PLANNING ASSESSEMENTS UNTIL IMPROVEMENT NOTED AND CLOSER TO TIME OF DC Initialized on 10/15/21 10:23 - END OF NOTE Assessment/Plan (1) COVID-19 Current Visit: Yes Status: Acute Assessment & Plan: continue remdesivir and olumiant, stable clinically Code(s): U07.1 - COVID-19 (2) CHF (congestive heart failure) Current Visit: No Status: Chronic Assessment & Plan: 3500ml+ out of [place]oks yesterday, negative fluid balance and clinically improving, continue IV lasix Code(s): I50.9 - HEART FAILURE, UNSPECIFIED (3) COPD (chronic obstructive pulmonary disease) Current Visit: No Status: Chronic (4) Diabetes mellitus Current Visit: No Status: Chronic Qualifiers: Diabetes mellitus type: type 2 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
[2021-10-16] MEDS: Lantus Insulin SQ SCH (09:32)
[2021-10-16] MEDS: Zestril 10 MG PO SCH (09:33)
[2021-10-16] MEDS: Hydromorphone 1 mg/ml Injection IV PRN ×2 (11:16→19:01)
[2021-10-16] MEDS: Lasix 40 MG/4 ML IV SCH (11:18)
[2021-10-17] MEDS: Lasix 40 MG/4 ML IV SCH ×2 (02:40→09:59)
[2021-10-17 03:00] LABS: Absolute Neutrophil Ct (ANC) 7.94 x10^3/uL (1.4-6.9); Basophil (Absolute #) 0.01 x10^3/uL (0-0.4); Eosinophil (Absolute #) 0 x10^3/uL (0-0.5); Hematocrit 38.3 % (35-47); Hemoglobin 11.9 g/dL (12.0-16.0); Lymphocyte (Absolute #) 0.85 x10^3/uL (1.0-4.6); Lymphocytes % 9.2 % (24.0-44.0); Mean Cell Volume 88.5 fL (78-100); Mean Corpuscular Hemoglobin 27.5 pg (26-32); Mean Corpuscular Hgb Concent. 31.1 g/dL (32-36); Mean Platelet Volume 11.5 fL (7.5-11.0); Monocytes % 4.3 % (0.0-12.0); Platelet Count 244 x10^3/uL (150-450); Red Blood Count 4.33 x10^6/uL (4.1-5.4); Red Cell Distribution Width 17.2 % (11.5-14.0); White Blood Count 9.2 x10^3/uL (4.0-10.5)
[2021-10-17 03:18] LABS: ANION GAP 10.3 MEQ/L (5-15); BLOOD UREA NITROGEN 24 mg/dL (7-17); CHLORIDE 96 mmol/L (98-107); Calcium 8.4 mg/dL (8.4-10.2); Carbon Dioxide 32 mmol/L (22-30); Creatinine 1 0.75 mg/dL (0.52-1.04); EST GLOMERULAR FILTRATION RATE > 60.0 ML/MIN; Glucose 323 mg/dL (74-106); NT PRO BNP 2780 pg/mL (0-900); SODIUM 133 mmol/L (137-145)
[2021-10-17] MEDS: HUMALOG SQ PRN ×2 (07:55→22:29)
--- NOTE | 2021-10-17 09:02 | PCM.NOTE ---
Date and Time: 10/17/21 0900 Subjective Assessment: oxygen requirement decreasing with diuresis, patient feels very weak and still has some cough. Objective Exam General Appearance: obese Neurologic Exam: alert, oriented x 3 Respiratory Exam: rhonchi Cardiovascular Exam: regular rate/rhythm, normal heart sounds Gastrointestinal/Abdomen Exam: soft, No tenderness, No mass Extremity Exam: normal inspection, normal range of motion OBJECTIVE DATA Vital Signs: Vital Signs - 24 hr Temp Pulse Resp BP Pulse Ox 10/17/21 07:46 97.3 F 59 L 18 120/69 98 10/17/21 07:35 57 L 16 94 L 10/17/21 07:00 97.7 F 40 L 17 123/92 10/17/21 06:00 17 10/17/21 05:51 40 L 18 92 L 10/17/21 05:00 49 L 16 93 L 10/17/21 03:58 97.7 F 54 L 21 123/92 97 10/17/21 03:00 97.7 F 72 22 123/92 95 10/17/21 02:00 54 L 22 95 10/17/21 01:00 50 L 20 91 L 10/17/21 00:12 97.5 F 55 L 20 175/70 94 L 10/17/21 00:00 54 L 20 95 10/16/21 23:00 52 L 22 95 10/16/21 22:00 51 L 22 94 L 10/16/21 21:00 54 L 17 92 L 10/16/21 20:27 54 L 18 95 10/16/21 20:00 97.5 F 57 L 19 194/89 93 L 10/16/21 19:00 65 17 94 L 10/16/21 18:00 97.8 F 63 17 94 L 10/16/21 17:00 56 L 17 93 L 10/16/21 16:00 97.6 F 52 L 16 188/75 93 L 10/16/21 15:00 53 L 18 96 10/16/21 14:00 53 L 20 85 L 10/16/21 13:00 54 L 18 89 L 10/16/21 11:49 50 L 14 94 L 10/16/21 11:00 97.8 F 52 L 16 175/77 92 L 10/16/21 10:00 52 L 14 94 L Pain Assessment - Last Documented Pain Intensity 0 Pain Scale Used 0-10 Pain Scale Intake and Output: Intake & Output 10/14/21 10/15/21 10/16/21 10/17/21 11:59 11:59 11:59 11:59 Intake Total 2063 2910 2134 960 Output Total 1050 5350 4000 Balance 2063 0099 -3801 -0672 Weight 120.4 kg Lab Results: Lab Results-Last 24 Hours 10/16/21 10/16/21 10/16/21 Range/Units 11:24 16:39 20:53 WBC (4.0-10.5) x10^3/uL RBC (4.1-5.4) x10^6/uL Hgb (12.0-16.0) g/dL Hct (35-47) % MCV (78-100) fL MCH (26-32) pg MCHC (32-36) g/dL RDW (11.5-14.0) % Plt Count (150-450) x10^3/uL MPV (7.5-11.0) fL Gran % (36.0-66.0) % Immature Gran % (Auto) (0.00-0.4) % Nucleat RBC Rel Count (0.00-0.1) % Eos # (Auto) (0-0.5) x10^3/uL Immature Gran # (Auto) (0.00-0.03) x10^3u/L Absolute Lymphs (auto) (1.0-4.6) x10^3/uL Absolute Monos (auto) (0.0-1.3) x10^3/uL Absolute Nucleated RBC (0.00-0.01) x10^3u/L Lymphocytes % (24.0-44.0) % Monocytes % (0.0-12.0) % Eosinophils % (0.00-5.0) % Basophils % (0.0-0.4) % Absolute Granulocytes (1.4-6.9) x10^3/uL Basophils # (0-0.4) x10^3/uL Sodium (137-145) mmol/L Potassium (3.5-5.1) mmol/L Chloride (98-107) mmol/L Carbon Dioxide (22-30) mmol/L Anion Gap (5-15) MEQ/L BUN (7-17) mg/dL Creatinine (0.52-1.04) mg/dL Estimated GFR ML/MIN Glucose (74-106) mg/dL POC Glucometer 394 H 422 H 427 H (74 to 106) mg/dL Calcium (8.4-10.2) mg/dL NT-Pro-B Natriuret Pep (0-900) pg/mL 10/17/21 10/17/21 10/17/21 Range/Units 02:57 02:57 07:30 WBC 9.2 (4.0-10.5) x10^3/uL RBC 4.33 (4.1-5.4) x10^6/uL Hgb 11.9 L (12.0-16.0) g/dL Hct 38.3 (35-47) % MCV 88.5 (78-100) fL MCH 27.5 (26-32) pg MCHC 31.1 L (32-36) g/dL RDW 17.2 H (11.5-14.0) % Plt Count 244 (150-450) x10^3/uL MPV 11.5 H (7.5-11.0) fL Gran % 86.0 H (36.0-66.0) % Immature Gran % (Auto) 0.4 (0.00-0.4) % Nucleat RBC Rel Count 0.0 (0.00-0.1) % Eos # (Auto) 0 (0-0.5) x10^3/uL Immature Gran # (Auto) 0.04 H (0.00-0.03) x10^3u/L Absolute Lymphs (auto) 0.85 L (1.0-4.6) x10^3/uL Absolute Monos (auto) 0.40 (0.0-1.3) x10^3/uL Absolute Nucleated RBC 0.00 (0.00-0.01) x10^3u/L Lymphocytes % 9.2 L (24.0-44.0) % Monocytes % 4.3 (0.0-12.0) % Eosinophils % 0.0 (0.00-5.0) % Basophils % 0.1 (0.0-0.4) % Absolute Granulocytes 7.94 H (1.4-6.9) x10^3/uL Basophils # 0.01 (0-0.4) x10^3/uL Sodium 133 L (137-145) mmol/L Potassium 5.0 (3.5-5.1) mmol/L Chloride 96 L (98-107) mmol/L Carbon Dioxide 32 H (22-30) mmol/L Anion Gap 10.3 (5-15) MEQ/L BUN 24 H (7-17) mg/dL Creatinine 0.75 (0.52-1.04) mg/dL Estimated GFR > 60.0 ML/MIN Glucose 323 H (74-106) mg/dL POC Glucometer 250 H (74 to 106) mg/dL Calcium 8.4 (8.4-10.2) mg/dL NT-Pro-B Natriuret Pep 2780 H (0-900) pg/mL Radiology Exams: Radiology Procedures Category Date Time Status CHEST 1 VIEW (PORTABLE) Routine Exams 10/17/21 08:59 Ordered Multi-Disciplinary Progress Notes: Multi-Disciplinary Progress Notes 10/16/21 18:38 Case Management Note by Radha Grullon S/W PATIENT- SHE CONTINUES TO PLAN TO RETURN HOME WITH HER FAMILY TO CARE FOR HER AT TIME OF DC. Initialized on 10/16/21 18:38 - END OF NOTE Assessment/Plan (1) COVID-19 Current Visit: Yes Status: Acute Assessment & Plan: remdesivir, olumiant and dexamethasone. improving clinically, also getting lovenox Code(s): U07.1 - COVID-19 (2) CHF (congestive heart failure) Current Visit: No Status: Chronic Assessment & Plan: improved, diuresed quite well. patient is weak and will need rehab when released. 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
[2021-10-17] MEDS: ENOXAPARIN SODIUM SQ SCH (09:45)
[2021-10-17] MEDS: Zofran 4 MG/2 ML VIAL IV PRN (09:45)
[2021-10-17] MEDS: ECOTRIN 81 MG PO SCH (09:46)
[2021-10-17] MEDS: Coreg 3.125 MG PO SCH ×2 (09:46→22:29)
[2021-10-17] MEDS: ZOLOFT 50 MG TABLET PO SCH (09:46)
[2021-10-17] MEDS: Cozaar 50 MG PO SCH (09:46)
[2021-10-17] MEDS: Klor Con PO SCH ×2 (09:46→22:29)
[2021-10-17] MEDS: Cordarone 200 MG PO SCH (09:46)
[2021-10-17] MEDS: Zestril 10 MG PO SCH (09:46)
[2021-10-17] MEDS: LYRICA 100MG PO SCH ×2 (09:47→22:29)
[2021-10-17] MEDS: Lantus Insulin SQ SCH (09:47)
[2021-10-17] MEDS: PROTONIX 40 MG IV IV SCH (09:48)
[2021-10-17] MEDS: OLUMIANT PO SCH (09:49)
[2021-10-17] MEDS: DECADRON 10MG INJ. IV SCH (09:49)
[2021-10-17] MEDS: Hydromorphone 1 mg/ml Injection IV PRN (09:59)
--- NOTE | 2021-10-17 11:02 | XRAY ---
Indication: Follow-up pneumonia. Comparison: October 15, 2021. Portable chest demonstrates new moderate right base pleural effusion/atelectasis and mild right suprahilar subsegmental atelectasis. Worsening left mid to lower lung airspace disease with new small left effusion. Heart not enlarged.
[2021-10-18] MEDS: Lasix 40 MG/4 ML IV SCH (00:50)
[2021-10-18] MEDS: Hydromorphone 1 mg/ml Injection IV PRN ×2 (00:55→08:30)
[2021-10-18 05:05] LABS: Absolute Neutrophil Ct (ANC) 5.68 x10^3/uL (1.4-6.9); Basophil (Absolute #) 0.01 x10^3/uL (0-0.4); Eosinophil (Absolute #) 0 x10^3/uL (0-0.5); Hematocrit 39.6 % (35-47); Hemoglobin 12.3 g/dL (12.0-16.0); Lymphocyte (Absolute #) 1.05 x10^3/uL (1.0-4.6); Lymphocytes % 14.5 % (24.0-44.0); Mean Corpuscular Hemoglobin 27.3 pg (26-32); Mean Corpuscular Hgb Concent. 31.1 g/dL (32-36); Mean Platelet Volume 11.2 fL (7.5-11.0); Monocyte (Absolute #) 0.45 x10^3/uL (0.0-1.3); Monocytes % 6.2 % (0.0-12.0); Neutrophil % 78.6 % (36.0-66.0); Platelet Count 241 x10^3/uL (150-450); Red Cell Distribution Width 17.3 % (11.5-14.0); White Blood Count 7.2 x10^3/uL (4.0-10.5)
[2021-10-18 05:34] LABS: BLOOD UREA NITROGEN 31 mg/dL (7-17); CHLORIDE 92 mmol/L (98-107); Calcium 8.1 mg/dL (8.4-10.2); Carbon Dioxide 36 mmol/L (22-30); Creatinine 1 0.89 mg/dL (0.52-1.04); EST GLOMERULAR FILTRATION RATE > 60.0 ML/MIN; Glucose 354 mg/dL (74-106); MAGNESIUM 2.1 mg/dL (1.6-2.3); NT PRO BNP 2090 pg/mL (0-900); Potassium 4.7 mmol/L (3.5-5.1); SODIUM 134 mmol/L (137-145)
--- NOTE | 2021-10-18 07:51 | PCM.DS ---
Discharge Summary Date of Admission: 10/13/21 08:03 Admitting Physician: AMANDEEP WARD Primary Care Provider: AMANDEEP WARD Allergies Allergies morphine Allergy (Severe, Verified 10/12/21 03:36) anaphylaxis pt went into respiratory failure and acute renal failure the last time she had morphine. "I was in a coma for a week" adhesive Allergy (Mild, Verified 10/12/21 03:36) Blisters aspirin Allergy (Verified 10/12/21 03:36) Difficulty Breathing PT STATES THAT SHE CAN TAKE ASPIRIN 81 MG BUT NOTHING HIGHER IN DOSE. Penicillins Allergy (Verified 10/12/21 03:36) Rash povidone-iodine [From Betadine] Allergy (Verified 10/12/21 03:36) BLISTERES soap [From Betadine] Allergy (Verified 10/12/21 03:36) Blisters Hospital Summary - Hospital Course Hospital Course: patient admitted with covid, developed chf and volume overload as well. treated with remdesivir, olumiant and decadron. she is back to baseline after an impressive diuresis, currently stable on home oxygen 3L. she is weak and will discharge to [facility] for rehab - Vitals & Intake/Output Vital Signs: Vital Signs Temperature 97.1 F 10/18/21 04:00 Pulse Rate 37 L 10/18/21 05:37 Respiratory Rate 14 10/18/21 05:59 Blood Pressure 160/89 10/18/21 04:00 O2 Sat by Pulse Oximetry 96 10/18/21 05:37 Intake & Output: Intake & Output 10/15/21 10/16/21 10/17/21 10/18/21 11:59 11:59 11:59 11:59 Intake Total 2910 2134 1440 2420 Output Total 1050 5350 4000 6050 Balance 3469 -7846 -3619 -8204 Weight 120.4 kg - Lab Result Diagrams: 10/18/21 04:55 10/18/21 04:55 Lab Results-Last 24 Hrs: Lab Results-Last 24 Hours 10/17/21 10/17/21 10/17/21 Range/Units 12:00 16:47 20:27 WBC (4.0-10.5) x10^3/uL RBC (4.1-5.4) x10^6/uL Hgb (12.0-16.0) g/dL Hct (35-47) % MCV (78-100) fL MCH (26-32) pg MCHC (32-36) g/dL RDW (11.5-14.0) % Plt Count (150-450) x10^3/uL MPV (7.5-11.0) fL Gran % (36.0-66.0) % Immature Gran % (Auto) (0.00-0.4) % Nucleat RBC Rel Count (0.00-0.1) % Eos # (Auto) (0-0.5) x10^3/uL Immature Gran # (Auto) (0.00-0.03) x10^3u/L Absolute Lymphs (auto) (1.0-4.6) x10^3/uL Absolute Monos (auto) (0.0-1.3) x10^3/uL Absolute Nucleated RBC (0.00-0.01) x10^3u/L Lymphocytes % (24.0-44.0) % Monocytes % (0.0-12.0) % Eosinophils % (0.00-5.0) % Basophils % (0.0-0.4) % Absolute Granulocytes (1.4-6.9) x10^3/uL Basophils # (0-0.4) x10^3/uL Sodium (137-145) mmol/L Potassium (3.5-5.1) mmol/L Chloride (98-107) mmol/L Carbon Dioxide (22-30) mmol/L Anion Gap (5-15) MEQ/L BUN (7-17) mg/dL Creatinine (0.52-1.04) mg/dL Estimated GFR ML/MIN Glucose (74-106) mg/dL POC Glucometer 230 H 390 H 389 H (74 to 106) mg/dL Calcium (8.4-10.2) mg/dL Magnesium (1.6-2.3) mg/dL NT-Pro-B Natriuret Pep (0-900) pg/mL 10/18/21 10/18/21 Range/Units 04:55 04:55 WBC 7.2 (4.0-10.5) x10^3/uL RBC 4.50 (4.1-5.4) x10^6/uL Hgb 12.3 (12.0-16.0) g/dL Hct 39.6 (35-47) % MCV 88.0 (78-100) fL MCH 27.3 (26-32) pg MCHC 31.1 L (32-36) g/dL RDW 17.3 H (11.5-14.0) % Plt Count 241 (150-450) x10^3/uL MPV 11.2 H (7.5-11.0) fL Gran % 78.6 H (36.0-66.0) % Immature Gran % (Auto) 0.6 H (0.00-0.4) % Nucleat RBC Rel Count 0.0 (0.00-0.1) % Eos # (Auto) 0 (0-0.5) x10^3/uL Immature Gran # (Auto) 0.04 H (0.00-0.03) x10^3u/L Absolute Lymphs (auto) 1.05 (1.0-4.6) x10^3/uL Absolute Monos (auto) 0.45 (0.0-1.3) x10^3/uL Absolute Nucleated RBC 0.00 (0.00-0.01) x10^3u/L Lymphocytes % 14.5 L (24.0-44.0) % Monocytes % 6.2 (0.0-12.0) % Eosinophils % 0.0 (0.00-5.0) % Basophils % 0.1 (0.0-0.4) % Absolute Granulocytes 5.68 (1.4-6.9) x10^3/uL Basophils # 0.01 (0-0.4) x10^3/uL Sodium 134 L (137-145) mmol/L Potassium 4.7 (3.5-5.1) mmol/L Chloride 92 L (98-107) mmol/L Carbon Dioxide 36 H (22-30) mmol/L Anion Gap 10.0 (5-15) MEQ/L BUN 31 H (7-17) mg/dL Creatinine 0.89 (0.52-1.04) mg/dL Estimated GFR > 60.0 ML/MIN Glucose 354 H (74-106) mg/dL POC Glucometer (74 to 106) mg/dL Calcium 8.1 L (8.4-10.2) mg/dL Magnesium 2.1 (1.6-2.3) mg/dL NT-Pro-B Natriuret Pep 2090 H (0-900) pg/mL Micro Results-Entire Visit: Microbiology 10/14/21 16:22 Urine Culture - Final Urine, Indwelling Catheter NO GROWTH 10/12/21 06:29 Urine Culture - Final Urine, Void NO GROWTH Accuchecks Date 10/17/21 Date 10/17/21 Time 20:45 Time 11:45 - Radiology Exams Ordered Rad Exams-Entire Visit: Radiology Procedures Category Date Time Status CHEST 1 VIEW (PORTABLE) Routine Exams 10/17/21 08:59 Completed - Procedures and Test Procedures and Tests throughout Hospitalization: Therapy Orders & Screens 10/13/21 05:20 Oxygen Nasal Cannula 3 lpm Comment: Diagnosis: vomiting, dehydration, hypoglycemia, hypokalemia 10/14/21 07:47 Respiratory Therapy Assessment DAILY Comment: Diagnosis: vomiting, dehydration, hypoglycemia, hypokalemia 10/14/21 14:05 BiPap/CPAP ROUTINE Comment: PER HOME USE Diagnosis: vomiting, dehydration, hypoglycemia, hypokalemia 10/14/21 17:35 Oxygen Oxymizer LPM 10 lpm Comment: Diagnosis: vomiting, dehydration, hypoglycemia, hypokalemia Discharge Exam General Appearance: no apparent distress, obese Neurologic Exam: alert, oriented x 3 Respiratory Exam: normal breath sounds, lungs clear Cardiovascular Exam: regular rate/rhythm, normal heart sounds Gastrointestinal/Abdomen Exam: soft, No tenderness, No mass Extremity Exam: normal inspection, normal range of motion Skin Exam: normal color, warm, dry Final Diagnosis/Problem List - Final Discharge Diagnosis/Problem (1) COVID-19 Current Visit: Yes Status: Acute Assessment & Plan: will discharge on po decadron x 5 days, completed 2 5 day courses of remdesivir Code(s): U07.1 - COVID-19 (2) CHF (congestive heart failure) Current Visit: No Status: Chronic Assessment & Plan: currently euvolemic and diuresed well Code(s): I50.9 - HEART FAILURE, UNSPECIFIED (3) COPD (chronic obstructive pulmonary disease) Current Visit: No Status: Chronic (4) Diabetes mellitus Current Visit: No Status: Chronic Code(s): E11.9 - TYPE 2 DIABETES MELLITUS WITHOUT COMPLICATIONS - Discharge Disposition: DC TO ANY "OTHER" [facility] Condition: Stable Prescriptions: New Dexamethasone 4 mg [Decadron 4 MG] 4 mg PO DAILY #5 tablet Continue Sertraline HCl 50 mg [Zoloft 50 mg Tablet] 50 mg PO DAILY Amiodarone HCl 200 mg [Cordarone 200 MG] 200 mg PO DAILY PANTOPRAZOLE 40 mg Tablet [Protonix 40MG Tablet] 40 mg PO DAILY Insulin Lispro [Humalog] 16 units SQ TIDWMEALS Donepezil HCl 10 mg [Aricept 10 MG] 1 tab PO DAILY Carvedilol 3.125 mg [Coreg 3.125 MG] 3.125 mg PO BID Cholecalciferol (Vitamin D3) [Vitamin D3] 1,000 units PO DAILY Aspirin 81 mg PO DAILY Rosuvastatin Calcium 10 mg PO HS Torsemide 20 mg [Demadex 20 mg] 20 mg PO BID Losartan Potassium 100 mg PO DAILY Potassium Chloride 20 meq PO BID Pregabalin 100 mg PO BID Apixaban [Eliquis 5 mg Tablet] 5 mg PO BID Amlodipine Besylate 2.5 mg PO DAILY Memantine HCl 5 mg [Namenda 5 MG] 10 mg PO BID Allopurinol 100 mg [Zyloprim 100 mg] 10 mg PO DAILY Insulin Lispro [Humalog] 23 unit SQ QHS Additional Instructions: [facility] REHAB ORDERS: -AIRBORNE ISOLATION (COVID +) -O2 @ 3L NC AT ALL TIMES and CPAP WHEN SLEEPING -PT/OT EVAL AND TREAT -ACCUCHECKS ACHS -DIABETIC DIET -SEE ATTACHED MEDICATION LIST FOR MEDICATION ORDERS Follow up with: AMANDEEP WARD [Primary Care Provider] -
[2021-10-18 08:10] VITALS: BP 199/86
[2021-10-18 08:14] VITALS: PULSE 55; O2SAT 97
[2021-10-18] MEDS: Klor Con PO SCH (08:30)
[2021-10-18] MEDS: Cordarone 200 MG PO SCH (08:30)
[2021-10-18] MEDS: ECOTRIN 81 MG PO SCH (08:30)
[2021-10-18] MEDS: ZOLOFT 50 MG TABLET PO SCH (08:30)
[2021-10-18] MEDS: ENOXAPARIN SODIUM SQ SCH (08:31)
[2021-10-18] MEDS: LYRICA 100MG PO SCH (08:31)
[2021-10-18] MEDS: Zestril 10 MG PO SCH (08:31)
[2021-10-18] MEDS: DECADRON 10MG INJ. IV SCH (08:31)
[2021-10-18] MEDS: Lantus Insulin SQ SCH (08:31)
[2021-10-18] MEDS: Coreg 3.125 MG PO SCH (08:31)
[2021-10-18] MEDS: Cozaar 50 MG PO SCH (08:31)
[2021-10-18] MEDS: OLUMIANT PO SCH (08:32)
[2021-10-18] MEDS: HUMALOG SQ PRN (08:32)
== END 2021-10-18 09:05 | DRG 179 ==
LOC: ED 03:24 → MED SURG 06:39 → OBSVTOIN 10-13 08:03
PROVIDERS: ADMIT Family Medicine; ATTEND Family Medicine
DX: U07.1 COVID-19 (principal); I11.0 Hypertensive heart disease with heart failure; I50.9 Heart failure, unspecified; J44.9 Chronic obstructive pulmonary disease, unspecified; E86.0 Dehydration; E11.649 Type 2 diabetes mellitus with hypoglycemia without coma; E87.6 Hypokalemia; I25.10 Atherosclerotic heart disease of native coronary artery without angina pectoris; R19.7 Diarrhea, unspecified; R94.31 Abnormal electrocardiogram [ECG] [EKG]; R11.10 Vomiting, unspecified; E11.22 Type 2 diabetes mellitus with diabetic chronic kidney disease; N18.1 Chronic kidney disease, stage 1; I48.0 Paroxysmal atrial fibrillation; N28.9 Disorder of kidney and ureter, unspecified; Z79.899 Other long term (current) drug therapy; Z20.828 Contact with and (suspected) exposure to other viral communicable diseases; Z87.19 Personal history of other diseases of the digestive system; Z79.4 Long term (current) use of insulin
CPT/HCPCS: 0241U; 11042; 11721; 36000; 36415; 71045; 74176; 80048; 80053; 81015; 82947; 83036; 83690; 83735; 83880; 84132; 84134; 84145; 84443; 84484; 85025; 85027; 87070; 87077; 87086; 87186; 93005; 93268; 94640; 94660; 94762; 96360; 96361; 96365; 96366; 99214; 99285; G0378; P9612; J0248; J1100; J1170; J1650; J1817; J1940; J2405; J2550; J3470; J3475; J3480; A9270-GY

== ENCOUNTER 2021-11-28 09:56 | Inpatient (IN) | payer MEDICARE, BC ==
[2021-11-28] MEDS ORDERED: Sodium Chloride 0.9% 1000 ML 1,000 ML IV SCH (10:30)
--- NOTE | 2021-11-28 10:50 | XRAY ---
Exam: AP upright portable chest film from 11/28/2021. Comparison: AP upright portable chest film from 10/17/2021. Indication: 71-year-old female with shortness of air. Findings: The transverse heart size appears at the upper limits of normal with mild left ventricular prominence. I don't believe this is significantly changed from 10/17/2021. Mild tortuosity of the descending thoracic aorta is seen. Prior bibasilar pleural effusions have essentially resolved. However, mild focal airspace disease at the central right lung base consistent with residual atelectasis/infiltrate remains. This appears to be less pronounced as compared to 10/17/2021. I cannot exclude minimal residual atelectasis within the right suprahilar projection. The left lung reveals streaky lung markings lateral to the left hilum and behind the heart at the medial left lung base which could be due to residual infiltrate and/or atelectasis. This also appears less pronounced as compared to 10/17/2021. The remainder of the lung carrillo appears clear. No acute osseous process is seen. Impression: 1. Prior bibasilar pleural effusions on 10/17/2021 have essentially resolved. 2. I still note bilateral patchy airspace opacities within both lower lung carrillo, as discussed above, which may be due to residual atelectasis and/or infiltrates. Overall, this appears less pronounced as compared 10/17/2021. 3. The heart size appears at upper limits of normal with mild left ventricular prominence. I believe this is unchanged.
--- NOTE | 2021-11-28 10:56 | ERPHSYRPT ---
- History of Present Illness Time Seen by Provider: 11/28/21 10:10 Source: patient Exam Limitations: no limitations Patient Subjective Stated Complaint: PT HERE FOR INCREASE SOB SINCE FRIDAY, SHE RECENTLY HAD COVID PNUEMONIA AND STATES SHE HAS NOT BEEN THE SAME SINCE,NO FE BULL, SLIGHT COUGH, SOB WITH EXCERTION Triage Nursing Assessment: PT ARRIVED PER AMBULANCE, ALERT, RESP LABORED WITH EXCERTION, CHEST CLEAR, FACE MASK IN PLACE, NO EEMA NOTED, SKIN W/D/P Physician History: Patient is a 71-year-old white female who was diagnosed with COVID approximately 6 weeks ago she was in the hospital for some time and then transferred to a senior living near [place] since Friday or 3 days ago she has been short of breath she had a chest x-ray at the [facility] yesterday which showed CHF and pneumonia. She has had chills and shortness of breath she has had decreased appetite. Timing/Duration: day(s) (3) Cough Quality/Degree: productive cough Possible Cause: illness exposure Modifying Factors: Improves With: coughing Associated Symptoms: chills, cough, shortness of breath Allergies/Adverse Reactions: morphine Allergy (Severe, Verified 11/28/21 10:07) anaphylaxis pt went into respiratory failure and acute renal failure the last time she had morphine. "I was in a coma for a week" adhesive Allergy (Mild, Verified 11/28/21 10:07) Blisters aspirin Allergy (Verified 11/28/21 10:07) Difficulty Breathing PT STATES THAT SHE CAN TAKE ASPIRIN 81 MG BUT NOTHING HIGHER IN DOSE. Penicillins Allergy (Verified 11/28/21 10:07) Rash povidone-iodine [From Betadine] Allergy (Verified 11/28/21 10:07) BLISTERES soap [From Betadine] Allergy (Verified 11/28/21 10:07) Blisters Home Medications: Amiodarone HCl 200 mg [Cordarone 200 MG] 200 mg PO DAILY 11/18/18 [History] PANTOPRAZOLE 40 mg Tablet [Protonix 40MG Tablet] 40 mg PO DAILY 11/18/18 [History] Sertraline HCl 50 mg [Zoloft 50 mg Tablet] 50 mg PO DAILY 11/18/18 [History] Insulin Lispro [Humalog] 16 units SQ TIDWMEALS 11/03/19 [History] Donepezil HCl 10 mg [Aricept 10 MG] 1 tab PO DAILY 02/09/20 [History] Aspirin 81 mg PO DAILY 02/19/21 [History] Carvedilol 3.125 mg [Coreg 3.125 MG] 3.125 mg PO BID 02/19/21 [History] Cholecalciferol (Vitamin D3) [Vitamin D3] 1,000 units PO DAILY 02/19/21 [History] Rosuvastatin Calcium 10 mg PO HS 02/19/21 [History] Amlodipine Besylate 2.5 mg PO DAILY 06/15/21 [History] Apixaban [Eliquis 5 mg Tablet] 5 mg PO BID 06/15/21 [History] Losartan Potassium 100 mg PO DAILY 06/15/21 [History] Potassium Chloride 20 meq PO BID 06/15/21 [History] Pregabalin 100 mg PO BID 06/15/21 [History] Torsemide 20 mg [Demadex 20 mg] 20 mg PO BID 06/15/21 [History] Allopurinol 100 mg [Zyloprim 100 mg] 10 mg PO DAILY 10/12/21 [History] Insulin Lispro [Humalog] 14 unit SQ QHS 10/12/21 [History] Memantine HCl 5 mg [Namenda 5 MG] 10 mg PO BID 10/12/21 [History] Cholecalciferol (Vitamin D3) [Vitamin D3] 1,000 units DAILY 11/28/21 [History] Insulin Glargine [Lantus Insulin] 26 unit SQ DAILY 11/28/21 [History] Insulin Lispro [Humalog Oscar Kwikpen] 14 unit SQ DAILY 11/28/21 [History] Insulin Lispro [Humalog] 1 unit SQ QID 11/28/21 [History] Insulin Lispro [Humalog] 20 unit SQ DAILY 11/28/21 [History] Melatonin/Pyridoxine [Melatonin 5 mg Tablet] 1 each PO HS 11/28/21 [History] Nystatin Powder 15 gm [Nystop Powder 15 gm] 10 gm TP QID 11/28/21 [History] Sertraline HCl 50 mg [Zoloft 50 mg Tablet] 50 mg PO DAILY 11/28/21 [History] Tramadol HCl 50 mg [Ultram 50 mg] 50 mg PO Q6H PRN PRN 11/28/21 [History] Hx Tetanus, Diphtheria Vaccination/Date Given: No Hx Influenza Vaccination/Date Given: Yes Hx Pneumococcal Vaccination/Date Given: Yes Immunizations Up to Date: Yes Travel Risk - International Travel Have you traveled outside of the country in past 3 weeks: No - Coronavirus Screening Are you exhibiting any of the following symptoms?: Yes Symptoms: Cough: New Onset, Shortness of Breath - Vaccine Status Have you recieved a Covid-19 vaccination: No - Review of Systems Constitutional: No Fever, No Chills Eyes: No Symptoms Ears, Nose, & Throat: No Symptoms Respiratory: Cough, Dyspnea, Dyspnea on Exertion (JOYA) Cardiac: No Chest Pain, No Edema, No Syncope Abdominal/Gastrointestinal: No Abdominal Pain, No Nausea, No Vomiting, No Diarrhea Genitourinary Symptoms: No Dysuria Musculoskeletal: No Back Pain, No Neck Pain Skin: No Rash Neurological: No Dizziness, No Focal Weakness, No Sensory Changes Psychological: No Symptoms Endocrine: No Symptoms All Other Systems: Reviewed and Negative - Past Medical History Pertinent Past Medical History: Yes Neurological History: Peripheral Neuropathy ENT History: No Pertinent History Cardiac History: Angina, Arrhythmia, Congestive Heart Failure, High Cholesterol, Hypertension Respiratory History: COPD, Pneumonia Endocrine Medical History: Diabetes Type II Musculoskeletal History: Arthritis, Fractures GI Medical History: Diverticulitis, Other History: Other Psycho-Social History: No Pertinent History Female Reproductive Disorders: No Pertinent History Other Medical History: Impaired kidney function, HYPOKALEMIA, LEFT ANKLE FRACTURE 05/07/19, C DIFF COVID 09/2021 - Past Surgical History Past Surgical History: Yes Neuro Surgical History: No Pertinent History Cardiac: No Pertinent History Respiratory: No Pertinent History Gastrointestinal: Appendectomy Genitourinary: No Pertinent History Musculoskeletal: Orthopedic Surgery Female Surgical History: Hysterectomy Other Surgical History: Multiple hand surgeries, Left foot surgery approx 8 months ago with surgical sight still not completely healed today. Dr Rahul molina. - Social History Smoking Status: Former smoker How long have you smoked: 1 year Exposure to second hand smoke: No Alcohol Use: None Drug Use: none Patient Lives Alone: No Significant Family History: diabetes, hypertension - Nursing Vital Signs Nursing Vital Signs: Initial Vital Signs Temperature 97.0 F 11/28/21 09:57 Pulse Rate 46 L 11/28/21 09:57 Respiratory Rate 22 11/28/21 09:57 Blood Pressure 149/60 11/28/21 09:57 O2 Sat by Pulse Oximetry 97 11/28/21 09:57 Pain Scale Pain Intensity 6 - Physical Exam General Appearance: mild distress Eye Exam: PERRL/EOMI, eyes nml inspection Ears, Nose, Throat Exam: normal ENT inspection, TMs normal, pharynx normal, moist mucous membranes Neck Exam: normal inspection, non-tender, supple, full range of motion Respiratory Exam: airway intact, crackles/rales Cardiovascular Exam: regular rate/rhythm, normal heart sounds Gastrointestinal/Abdomen Exam: soft, No tenderness Back Exam: normal inspection, No CVA tenderness, No vertebral tenderness Extremity Exam: normal inspection, normal range of motion Neurologic Exam: alert, oriented x 3, cooperative, normal mood/affect, sensation nml, No motor deficits Skin Exam: normal color, warm, dry, No rash Lymphatic Exam: No adenopathy SpO2 Interpretation: normal SpO2: 96 O2 Delivery: Room Air - Course Nursing assessment & vital signs reviewed: Yes EKG Interpreted by Me: RATE (42), Sinus Silverio, NORMAL AXIS, NORMAL INTERVALS, NORMAL QRS, Non-specific ST Changes - Radiology Exams Chest X-ray Interpretation: Reviewed by me Ordered Tests: Active Orders 24 hr Category Date Time Status EKG-ER Only STAT Care 11/28/21 10:18 Active IV Insertion STAT Care 11/28/21 10:18 Active CHEST 1 VIEW (PORTABLE) Stat Exams 11/28/21 10:19 Completed BLOOD CULTURE Stat Lab 11/28/21 10:55 Received CBC W DIFF Stat Lab 11/28/21 10:18 Completed CMP Stat Lab 11/28/21 10:50 Completed D-DIMER QUANTITATIVE Stat Lab 11/28/21 10:50 Completed Lactic Acid Stat Lab 11/28/21 10:20 Ordered Lactic Acid Stat Lab 11/28/21 11:00 Completed MAGNESIUM Stat Lab 11/28/21 10:50 Completed NT PRO BNP Stat Lab 11/28/21 10:50 Completed PROCALCITONIN Stat Lab 11/28/21 10:50 Completed PROTIME WITH INR Stat Lab 11/28/21 10:50 Completed UA W/RFX CULTURE Stat Lab 11/28/21 12:02 Ordered Medication Summary Generic Name Dose Route Start Last Admin Trade Name Boaz PRN Reason Stop Dose Admin Sodium Chloride 1,000 mls @ 50 mls/hr 11/28/21 10:30 11/28/21 11:09 Sodium Chloride 0.9% 1000 Ml IV 12/28/21 10:29 50 mls/hr .Q20H JAMAL Administration Lab/Rad Data: Laboratory Result Diagrams 11/28/21 10:18 11/28/21 10:50 Laboratory Results 11/28/21 11/28/21 11/28/21 Range/Units 11:00 10:50 10:50 WBC (4.0-10.5) x10^3/uL RBC (4.1-5.4) x10^6/uL Hgb (12.0-16.0) g/dL Hct (35-47) % MCV (78-100) fL MCH (26-32) pg MCHC (32-36) g/dL RDW (11.5-14.0) % Plt Count (150-450) x10^3/uL MPV (7.5-11.0) fL Gran % (36.0-66.0) % Immature Gran % (Auto) (0.00-0.4) % Nucleat RBC Rel Count (0.00-0.1) % Eos # (Auto) (0-0.5) x10^3/uL Immature Gran # (Auto) (0.00-0.03) x10^3u/L Absolute Lymphs (auto) (1.0-4.6) x10^3/uL Absolute Monos (auto) (0.0-1.3) x10^3/uL Absolute Nucleated RBC (0.00-0.01) x10^3u/L Lymphocytes % (24.0-44.0) % Monocytes % (0.0-12.0) % Eosinophils % (0.00-5.0) % Basophils % (0.0-0.4) % Absolute Granulocytes (1.4-6.9) x10^3/uL Basophils # (0-0.4) x10^3/uL PT (9.4-12.5) SECONDS INR (0.8-3.0) D-Dimer 0.41 (0.0-0.50) mg/L Sodium (137-145) mmol/L Potassium (3.5-5.1) mmol/L Chloride (98-107) mmol/L Carbon Dioxide (22-30) mmol/L Anion Gap (5-15) MEQ/L BUN (7-17) mg/dL Creatinine (0.52-1.04) mg/dL Estimated GFR ML/MIN Glucose (74-106) mg/dL Lactic Acid 1.7 (0.4-2.0) Calcium (8.4-10.2) mg/dL Magnesium (1.6-2.3) mg/dL Total Bilirubin (0.2-1.3) mg/dL AST (14-36) U/L ALT (0-35) U/L Alkaline Phosphatase (38-126) U/L NT-Pro-B Natriuret Pep (0-900) pg/mL Serum Total Protein (6.3-8.2) g/dL Albumin (3.5-5.0) g/dL Procalcitonin 0.270 H (0.030-0.080) ng/mL Influenza Type A Ag (NEGATIVE) Influenza Type B Ag (NEGATIVE) RSV (PCR) (Negative) SARS-CoV-2 (PCR) (NEGATIVE) 11/28/21 11/28/21 11/28/21 Range/Units 10:50 10:50 10:50 WBC (4.0-10.5) x10^3/uL RBC (4.1-5.4) x10^6/uL Hgb (12.0-16.0) g/dL Hct (35-47) % MCV (78-100) fL MCH (26-32) pg MCHC (32-36) g/dL RDW (11.5-14.0) % Plt Count (150-450) x10^3/uL MPV (7.5-11.0) fL Gran % (36.0-66.0) % Immature Gran % (Auto) (0.00-0.4) % Nucleat RBC Rel Count (0.00-0.1) % Eos # (Auto) (0-0.5) x10^3/uL Immature Gran # (Auto) (0.00-0.03) x10^3u/L Absolute Lymphs (auto) (1.0-4.6) x10^3/uL Absolute Monos (auto) (0.0-1.3) x10^3/uL Absolute Nucleated RBC (0.00-0.01) x10^3u/L Lymphocytes % (24.0-44.0) % Monocytes % (0.0-12.0) % Eosinophils % (0.00-5.0) % Basophils % (0.0-0.4) % Absolute Granulocytes (1.4-6.9) x10^3/uL Basophils # (0-0.4) x10^3/uL PT 12.4 (9.4-12.5) SECONDS INR 1.19 (0.8-3.0) D-Dimer (0.0-0.50) mg/L Sodium 140 (137-145) mmol/L Potassium 4.6 (3.5-5.1) mmol/L Chloride 98 (98-107) mmol/L Carbon Dioxide 35 H (22-30) mmol/L Anion Gap 10.8 (5-15) MEQ/L BUN 29 H (7-17) mg/dL Creatinine 1.35 H (0.52-1.04) mg/dL Estimated GFR 41.0 ML/MIN Glucose 105 (74-106) mg/dL Lactic Acid (0.4-2.0) Calcium 9.0 (8.4-10.2) mg/dL Magnesium 2.4 H (1.6-2.3) mg/dL Total Bilirubin 0.90 (0.2-1.3) mg/dL AST 82 H (14-36) U/L ALT 59 H (0-35) U/L Alkaline Phosphatase 81 (38-126) U/L NT-Pro-B Natriuret Pep 6170 H (0-900) pg/mL Serum Total Protein 7.0 (6.3-8.2) g/dL Albumin 3.9 (3.5-5.0) g/dL Procalcitonin (0.030-0.080) ng/mL Influenza Type A Ag (NEGATIVE) Influenza Type B Ag (NEGATIVE) RSV (PCR) (Negative) SARS-CoV-2 (PCR) (NEGATIVE) 11/28/21 11/28/21 Range/Units 10:50 10:18 WBC 8.6 (4.0-10.5) x10^3/uL RBC 3.84 L (4.1-5.4) x10^6/uL Hgb 11.2 L (12.0-16.0) g/dL Hct 36.7 (35-47) % MCV 95.6 (78-100) fL MCH 29.2 (26-32) pg MCHC 30.5 L (32-36) g/dL RDW 18.4 H (11.5-14.0) % Plt Count 165 (150-450) x10^3/uL MPV 12.6 H (7.5-11.0) fL Gran % 67.5 H (36.0-66.0) % Immature Gran % (Auto) 0.5 H (0.00-0.4) % Nucleat RBC Rel Count 0.0 (0.00-0.1) % Eos # (Auto) 0.01 (0-0.5) x10^3/uL Immature Gran # (Auto) 0.04 H (0.00-0.03) x10^3u/L Absolute Lymphs (auto) 1.93 (1.0-4.6) x10^3/uL Absolute Monos (auto) 0.80 (0.0-1.3) x10^3/uL Absolute Nucleated RBC 0.00 (0.00-0.01) x10^3u/L Lymphocytes % 22.3 L (24.0-44.0) % Monocytes % 9.3 (0.0-12.0) % Eosinophils % 0.1 (0.00-5.0) % Basophils % 0.3 (0.0-0.4) % Absolute Granulocytes 5.83 (1.4-6.9) x10^3/uL Basophils # 0.03 (0-0.4) x10^3/uL PT (9.4-12.5) SECONDS INR (0.8-3.0) D-Dimer (0.0-0.50) mg/L Sodium (137-145) mmol/L Potassium (3.5-5.1) mmol/L Chloride (98-107) mmol/L Carbon Dioxide (22-30) mmol/L Anion Gap (5-15) MEQ/L BUN (7-17) mg/dL Creatinine (0.52-1.04) mg/dL Estimated GFR ML/MIN Glucose (74-106) mg/dL Lactic Acid (0.4-2.0) Calcium (8.4-10.2) mg/dL Magnesium (1.6-2.3) mg/dL Total Bilirubin (0.2-1.3) mg/dL AST (14-36) U/L ALT (0-35) U/L Alkaline Phosphatase (38-126) U/L NT-Pro-B Natriuret Pep (0-900) pg/mL Serum Total Protein (6.3-8.2) g/dL Albumin (3.5-5.0) g/dL Procalcitonin (0.030-0.080) ng/mL Influenza Type A Ag NEGATIVE (NEGATIVE) Influenza Type B Ag NEGATIVE (NEGATIVE) RSV (PCR) NEGATIVE (Negative) SARS-CoV-2 (PCR) NEGATIVE (NEGATIVE) - Progress Progress: unchanged Air Movement: good Blood Culture(s) Obtained: Yes Antibiotics given: Yes Discussed with DrShaneka: Cedrick Will see patient in: hospital (full admit) - Departure Departure Disposition: In-patient Admission Clinical Impression: CHF (congestive heart failure), Pneumonia Condition: Fair Critical Care Time: No Referrals: AMANDEEP WARD [Primary Care Provider] - Follow up/PCP as directed Instructions: Heart Failure
[2021-11-28 10:59] LABS: Absolute Neutrophil Ct (ANC) 5.83 x10^3/uL (1.4-6.9); Basophil (Absolute #) 0.03 x10^3/uL (0-0.4); Eosinophil % 0.1 % (0.00-5.0); Eosinophil (Absolute #) 0.01 x10^3/uL (0-0.5); Hematocrit 36.7 % (35-47); Hemoglobin 11.2 g/dL (12.0-16.0); Lymphocyte (Absolute #) 1.93 x10^3/uL (1.0-4.6); Lymphocytes % 22.3 % (24.0-44.0); Mean Cell Volume 95.6 fL (78-100); Mean Corpuscular Hemoglobin 29.2 pg (26-32); Mean Corpuscular Hgb Concent. 30.5 g/dL (32-36); Mean Platelet Volume 12.6 fL (7.5-11.0); Monocytes % 9.3 % (0.0-12.0); Neutrophil % 67.5 % (36.0-66.0); Platelet Count 165 x10^3/uL (150-450); Red Blood Count 3.84 x10^6/uL (4.1-5.4); Red Cell Distribution Width 18.4 % (11.5-14.0); White Blood Count 8.6 x10^3/uL (4.0-10.5)
[2021-11-28] MEDS ORDERED: Sodium Chloride 0.9% 1000 ML 1,000 ML ONE (11:06)
[2021-11-28 11:16] LABS: ALBUMIN 3.9 g/dL (3.5-5.0); ANION GAP 10.8 MEQ/L (5-15); BILIRUBIN,TOTAL 0.9 mg/dL (0.2-1.3); Creatinine 1 1.35 mg/dL (0.52-1.04); INR 1.19 (0.8-3.0); PROTIME 12.4 SECONDS (9.4-12.5); Potassium 4.6 mmol/L (3.5-5.1)
[2021-11-28 11:32] LABS: MAGNESIUM 2.4 mg/dL (1.6-2.3)
[2021-11-28 11:38] LABS: INFLUENZA A NEGATIVE (NEGATIVE); INFLUENZA B NEGATIVE (NEGATIVE); RESPIRATORY SYNCTIAL VIRUS NEGATIVE (Negative); SARS-CoV-2 Xpert Express NEGATIVE (NEGATIVE)
[2021-11-28 12:25] LABS: Bacteria RARE /HPF (NEGATIVE); Epithelial Cells RARE /HPF (FEW); Hyaline Casts 26-50 /LPF (0-2); Mucus SLIGHT /HPF (NEGATIVE); WBC 0-2 /HPF (0-5)
[2021-11-28 12:26] LABS: Appearance CLEAR (CLEAR); Bilirubin NEGATIVE (NEGATIVE); Dipstick done @ ? MAIN LAB; Glucose NEGATIVE (NEGATIVE); Ketones NEGATIVE (NEGATIVE); Nitrite NEGATIVE (NEGATIVE); Ph 5.5 (5-6); Protein,Urine Dip 30 (Negative); RBC NEGATIVE Ery/ul (0-5); Urobilinogen 0.2 mg/dL (0-1)
[2021-11-28 12:29] LABS: Urine Cultured Indicated? YES
[2021-11-28] MEDS ORDERED: ROCEPHIN 1 Gm-D5w 50 ml Bag** 1 G/50 ML IVPB IV ONE (12:35)
[2021-11-28] MEDS ORDERED: XYLOCAINE 1% HCL 20 ML MDV ONE (13:36)
[2021-11-28] MEDS: Zestril 5 MG PO SCH (14:03)
--- NOTE | 2021-11-28 16:26 | PCM.HP ---
History of Present Illness - Chief Complaint Chief Complaint: CHF History of Present Illness: is a 71 year old female with a cough and increasing shortness of breath over the last 3 days, had a chest xray at [facility] and sent to ER for admission apparently when pneumonia and chf were suggested. she has no fever, cough is nonproductive. states she has been taking her usual course of diuretics, no changes. no sputum. - Review of Systems Constitutional: No Symptoms Respiratory: Cough, Short Of Breath Cardiac: No Chest Pain, No Edema, No Syncope Abdominal/Gastrointestinal: No Abdominal Pain, No Nausea, No Vomiting, No Diarrhea Skin: No Symptoms Neurological: No Dizziness, No Focal Weakness, No Sensory Changes Psychological: No Symptoms All Other Systems: Reviewed and Negative Medications & Allergies Home Medications: Home Medication List Amiodarone HCl 200 mg [Cordarone 200 MG] 200 mg PO DAILY 11/18/18 [History Confirmed 11/28/21] PANTOPRAZOLE 40 mg Tablet [Protonix 40MG Tablet] 40 mg PO DAILY 11/18/18 [History Confirmed 11/28/21] Sertraline HCl 50 mg [Zoloft 50 mg Tablet] 50 mg PO DAILY 11/18/18 [History Confirmed 11/28/21] Donepezil HCl 10 mg [Aricept 10 MG] 1 tab PO DAILY 02/09/20 [History Confirmed 11/28/21] Aspirin 81 mg PO DAILY 02/19/21 [History Confirmed 11/28/21] Carvedilol 3.125 mg [Coreg 3.125 MG] 3.125 mg PO BID 02/19/21 [History Confirmed 11/28/21] Cholecalciferol (Vitamin D3) [Vitamin D3] 1,000 units PO DAILY 02/19/21 [History Confirmed 11/28/21] Rosuvastatin Calcium 10 mg PO HS 02/19/21 [History Confirmed 11/28/21] Amlodipine Besylate 2.5 mg PO DAILY 06/15/21 [History Confirmed 11/28/21] Losartan Potassium 100 mg PO DAILY 06/15/21 [History Confirmed 11/28/21] Potassium Chloride 20 meq PO BID 06/15/21 [History Confirmed 11/28/21] Pregabalin 100 mg PO BID 06/15/21 [History Confirmed 11/28/21] Torsemide 20 mg [Demadex 20 mg] 20 mg PO BID 06/15/21 [History Confirmed 11/28/21] Insulin Lispro [Humalog] 16 unit SQ DAILY 10/12/21 [History Confirmed 11/28/21] Memantine HCl 5 mg [Namenda 5 MG] 5 mg PO BID 10/12/21 [History Confirmed 11/28/21] Apixaban [Eliquis 5 mg Tablet] 5 mg PO BID 11/28/21 [History Confirmed 11/28/21] Insulin Glargine [Lantus Insulin] 26 unit SQ DAILY 11/28/21 [History Confirmed 11/28/21] Insulin Lispro [Humalog Oscar Kwikpen] 14 unit SQ DAILY 11/28/21 [History Confirmed 11/28/21] Insulin Lispro [Humalog] 1 unit SQ QID 11/28/21 [History Confirmed 11/28/21] Insulin Lispro [Humalog] 20 unit SQ DAILY 11/28/21 [History Confirmed 11/28/21] Melatonin/Pyridoxine [Melatonin 5 mg Tablet] 1 each PO HS 11/28/21 [History Confirmed 11/28/21] Nystatin Powder 15 gm [Nystop Powder 15 gm] 10 gm TP QID PRN 11/28/21 [History Confirmed 11/28/21] Tramadol HCl 50 mg [Ultram 50 mg] 50 mg PO Q6H PRN PRN 11/28/21 [History Confirmed 11/28/21] Allergies/Adverse Reactions: Allergies Allergy/AdvReac Type Severity Reaction Status Date / Time morphine Allergy Severe anaphylaxis Verified 11/28/21 10:07 adhesive Allergy Mild Blisters Verified 11/28/21 10:07 aspirin Allergy Difficulty Verified 11/28/21 10:07 Breathing Penicillins Allergy Rash Verified 11/28/21 10:07 povidone-iodine Allergy BLISTERES Verified 11/28/21 10:07 [From Betadine] soap [From Betadine] Allergy Blisters Verified 11/28/21 10:07 - Past Medical History Past Medical History: Yes Neurological History: Peripheral Neuropathy ENT History: No Pertinent History Cardiac History: Angina, Arrhythmia, Congestive Heart Failure, High Cholesterol, Hypertension Respiratory History: COPD, Pneumonia Endocrine Medical History: Diabetes Type II Musculoskelatal History: Arthritis, Fractures GI Medical History: Diverticulitis, Other History: Other Pyscho-Social History: No Pertinent History Reproductive Disorders: No Pertinent History Comment: Impaired kidney function, HYPOKALEMIA, LEFT ANKLE FRACTURE 05/07/19, C DIFF COVID 09/2021 - Female History Are you now?: No - Past Surgical History Past Surgical History: Yes Neuro Surgical History: No Pertinent History Cardiac History: No Pertinent History Respiratory Surgery: No Pertinent History GI Surgical History: Appendectomy Genitourinary Surgical Hx: No Pertinent History Musculskeletal Surgical Hx: Orthopedic Surgery Female Surgical History: Hysterectomy Other Surgical History: Multiple hand surgeries, Left foot surgery approx 8 m onths ago with surgical sight still not completely healed today. Dr Rahul molina. - Social History Smoking Status: Former smoker How long have you smoked: 1 year Exposure to second hand smoke: No Alcohol: None Drug Use: none Significant Family History: diabetes, hypertension - Physical Exam Vital Signs: Vital Signs - 24 hr Temp Pulse Resp BP Pulse Ox 11/28/21 13:35 94 L 11/28/21 13:24 97.0 F 44 L 121/53 96 11/28/21 12:16 96 11/28/21 12:08 44 L 18 121/53 95 11/28/21 10:06 20 96 11/28/21 09:57 97.0 F 46 L 22 149/60 97 General Appearance: no apparent distress, obese Neurologic Exam: alert, oriented x 3, cooperative Respiratory Exam: crackles/rales Cardiovascular Exam: normal heart sounds, normal peripheral pulses, bradycardia Gastrointestinal/Abdomen Exam: soft, normal bowel sounds, No tenderness, No mass Extremity Exam: pedal edema, swelling Skin Exam: normal color, warm, dry, No rash Results - Labs Lab/Micro Results: Lab Results-Last 24 Hours 11/28/21 11/28/21 11/28/21 Range/Units 10:18 10:50 10:50 WBC 8.6 (4.0-10.5) x10^3/uL RBC 3.84 L (4.1-5.4) x10^6/uL Hgb 11.2 L (12.0-16.0) g/dL Hct 36.7 (35-47) % MCV 95.6 (78-100) fL MCH 29.2 (26-32) pg MCHC 30.5 L (32-36) g/dL RDW 18.4 H (11.5-14.0) % Plt Count 165 (150-450) x10^3/uL MPV 12.6 H (7.5-11.0) fL Gran % 67.5 H (36.0-66.0) % Immature Gran % (Auto) 0.5 H (0.00-0.4) % Nucleat RBC Rel Count 0.0 (0.00-0.1) % Eos # (Auto) 0.01 (0-0.5) x10^3/uL Immature Gran # (Auto) 0.04 H (0.00-0.03) x10^3u/L Absolute Lymphs (auto) 1.93 (1.0-4.6) x10^3/uL Absolute Monos (auto) 0.80 (0.0-1.3) x10^3/uL Absolute Nucleated RBC 0.00 (0.00-0.01) x10^3u/L Lymphocytes % 22.3 L (24.0-44.0) % Monocytes % 9.3 (0.0-12.0) % Eosinophils % 0.1 (0.00-5.0) % Basophils % 0.3 (0.0-0.4) % Absolute Granulocytes 5.83 (1.4-6.9) x10^3/uL Basophils # 0.03 (0-0.4) x10^3/uL PT (9.4-12.5) SECONDS INR (0.8-3.0) D-Dimer (0.0-0.50) mg/L Sodium 140 (137-145) mmol/L Potassium 4.6 (3.5-5.1) mmol/L Chloride 98 (98-107) mmol/L Carbon Dioxide 35 H (22-30) mmol/L Anion Gap 10.8 (5-15) MEQ/L BUN 29 H (7-17) mg/dL Creatinine 1.35 H (0.52-1.04) mg/dL Estimated GFR 41.0 ML/MIN Glucose 105 (74-106) mg/dL Lactic Acid (0.4-2.0) Calcium 9.0 (8.4-10.2) mg/dL Magnesium (1.6-2.3) mg/dL Total Bilirubin 0.90 (0.2-1.3) mg/dL AST 82 H (14-36) U/L ALT 59 H (0-35) U/L Alkaline Phosphatase 81 (38-126) U/L NT-Pro-B Natriuret Pep (0-900) pg/mL Serum Total Protein 7.0 (6.3-8.2) g/dL Albumin 3.9 (3.5-5.0) g/dL Procalcitonin (0.030-0.080) ng/mL Urinalys Dipstick Clnc Urine Color (YELLOW) Urine Appearance (CLEAR) Urine pH (5-6) Ur Specific [place] (1.005-1.025) POC Urine Protein Conf (Negative) Urine Ketones (NEGATIVE) Urine Nitrite (NEGATIVE) Urine Bilirubin (NEGATIVE) Urine Urobilinogen (0-1) mg/dL Urine Leukocytes (NEGATIVE) Urine WBC (Auto) (0-5) /HPF Urine RBC (Auto) (0-2) /HPF U Hyaline Cast (Auto) (0-2) /LPF U Epithel Cells (Auto) (FEW) /HPF Urine Bacteria (Auto) (NEGATIVE) /HPF Urine RBC (0-5) Kervin/ul Urine Mucus (Auto) (NEGATIVE) /HPF Ur Culture Indicated? Urine Glucose (NEGATIVE) mg/dL Influenza Type A Ag NEGATIVE (NEGATIVE) Influenza Type B Ag NEGATIVE (NEGATIVE) RSV (PCR) NEGATIVE (Negative) SARS-CoV-2 (PCR) NEGATIVE (NEGATIVE) 11/28/21 11/28/21 11/28/21 Range/Units 10:50 10:50 10:50 WBC (4.0-10.5) x10^3/uL RBC (4.1-5.4) x10^6/uL Hgb (12.0-16.0) g/dL Hct (35-47) % MCV (78-100) fL MCH (26-32) pg MCHC (32-36) g/dL RDW (11.5-14.0) % Plt Count (150-450) x10^3/uL MPV (7.5-11.0) fL Gran % (36.0-66.0) % Immature Gran % (Auto) (0.00-0.4) % Nucleat RBC Rel Count (0.00-0.1) % Eos # (Auto) (0-0.5) x10^3/uL Immature Gran # (Auto) (0.00-0.03) x10^3u/L Absolute Lymphs (auto) (1.0-4.6) x10^3/uL Absolute Monos (auto) (0.0-1.3) x10^3/uL Absolute Nucleated RBC (0.00-0.01) x10^3u/L Lymphocytes % (24.0-44.0) % Monocytes % (0.0-12.0) % Eosinophils % (0.00-5.0) % Basophils % (0.0-0.4) % Absolute Granulocytes (1.4-6.9) x10^3/uL Basophils # (0-0.4) x10^3/uL PT 12.4 (9.4-12.5) SECONDS INR 1.19 (0.8-3.0) D-Dimer 0.41 (0.0-0.50) mg/L Sodium (137-145) mmol/L Potassium (3.5-5.1) mmol/L Chloride (98-107) mmol/L Carbon Dioxide (22-30) mmol/L Anion Gap (5-15) MEQ/L BUN (7-17) mg/dL Creatinine (0.52-1.04) mg/dL Estimated GFR ML/MIN Glucose (74-106) mg/dL Lactic Acid (0.4-2.0) Calcium (8.4-10.2) mg/dL Magnesium 2.4 H (1.6-2.3) mg/dL Total Bilirubin (0.2-1.3) mg/dL AST (14-36) U/L ALT (0-35) U/L Alkaline Phosphatase (38-126) U/L NT-Pro-B Natriuret Pep 6170 H (0-900) pg/mL Serum Total Protein (6.3-8.2) g/dL Albumin (3.5-5.0) g/dL Procalcitonin (0.030-0.080) ng/mL Urinalys Dipstick Clnc Urine Color (YELLOW) Urine Appearance (CLEAR) Urine pH (5-6) Ur Specific [place] (1.005-1.025) POC Urine Protein Conf (Negative) Urine Ketones (NEGATIVE) Urine Nitrite (NEGATIVE) Urine Bilirubin (NEGATIVE) Urine Urobilinogen (0-1) mg/dL Urine Leukocytes (NEGATIVE) Urine WBC (Auto) (0-5) /HPF Urine RBC (Auto) (0-2) /HPF U Hyaline Cast (Auto) (0-2) /LPF U Epithel Cells (Auto) (FEW) /HPF Urine Bacteria (Auto) (NEGATIVE) /HPF Urine RBC (0-5) Kervin/ul Urine Mucus (Auto) (NEGATIVE) /HPF Ur Culture Indicated? Urine Glucose (NEGATIVE) mg/dL Influenza Type A Ag (NEGATIVE) Influenza Type B Ag (NEGATIVE) RSV (PCR) (Negative) SARS-CoV-2 (PCR) (NEGATIVE) 11/28/21 11/28/21 11/28/21 Range/Units 10:50 11:00 12:02 WBC (4.0-10.5) x10^3/uL RBC (4.1-5.4) x10^6/uL Hgb (12.0-16.0) g/dL Hct (35-47) % MCV (78-100) fL MCH (26-32) pg MCHC (32-36) g/dL RDW (11.5-14.0) % Plt Count (150-450) x10^3/uL MPV (7.5-11.0) fL Gran % (36.0-66.0) % Immature Gran % (Auto) (0.00-0.4) % Nucleat RBC Rel Count (0.00-0.1) % Eos # (Auto) (0-0.5) x10^3/uL Immature Gran # (Auto) (0.00-0.03) x10^3u/L Absolute Lymphs (auto) (1.0-4.6) x10^3/uL Absolute Monos (auto) (0.0-1.3) x10^3/uL Absolute Nucleated RBC (0.00-0.01) x10^3u/L Lymphocytes % (24.0-44.0) % Monocytes % (0.0-12.0) % Eosinophils % (0.00-5.0) % Basophils % (0.0-0.4) % Absolute Granulocytes (1.4-6.9) x10^3/uL Basophils # (0-0.4) x10^3/uL PT (9.4-12.5) SECONDS INR (0.8-3.0) D-Dimer (0.0-0.50) mg/L Sodium (137-145) mmol/L Potassium (3.5-5.1) mmol/L Chloride (98-107) mmol/L Carbon Dioxide (22-30) mmol/L Anion Gap (5-15) MEQ/L BUN (7-17) mg/dL Creatinine (0.52-1.04) mg/dL Estimated GFR ML/MIN Glucose (74-106) mg/dL Lactic Acid 1.7 (0.4-2.0) Calcium (8.4-10.2) mg/dL Magnesium (1.6-2.3) mg/dL Total Bilirubin (0.2-1.3) mg/dL AST (14-36) U/L ALT (0-35) U/L Alkaline Phosphatase (38-126) U/L NT-Pro-B Natriuret Pep (0-900) pg/mL Serum Total Protein (6.3-8.2) g/dL Albumin (3.5-5.0) g/dL Procalcitonin 0.270 H (0.030-0.080) ng/mL Urinalys Dipstick Clnc MAIN LAB Urine Color YELLOW (YELLOW) Urine Appearance CLEAR (CLEAR) Urine pH 5.5 (5-6) Ur Specific [place] 1.020 (1.005-1.025) POC Urine Protein Conf 30 (Negative) Urine Ketones NEGATIVE (NEGATIVE) Urine Nitrite NEGATIVE (NEGATIVE) Urine Bilirubin NEGATIVE (NEGATIVE) Urine Urobilinogen 0.2 (0-1) mg/dL Urine Leukocytes TRACE (NEGATIVE) Urine WBC (Auto) 0-2 (0-5) /HPF Urine RBC (Auto) NONE (0-2) /HPF U Hyaline Cast (Auto) 26-50 (0-2) /LPF U Epithel Cells (Auto) RARE (FEW) /HPF Urine Bacteria (Auto) RARE (NEGATIVE) /HPF Urine RBC NEGATIVE (0-5) Kervin/ul Urine Mucus (Auto) SLIGHT (NEGATIVE) /HPF Ur Culture Indicated? YES Urine Glucose NEGATIVE (NEGATIVE) mg/dL Influenza Type A Ag (NEGATIVE) Influenza Type B Ag (NEGATIVE) RSV (PCR) (Negative) SARS-CoV-2 (PCR) (NEGATIVE) - Radiology Impressions Radiology Exams & Impressions: Radiology Procedures Category Date Time Status CHEST 1 VIEW (PORTABLE) IN AM Exams 11/29/21 06:00 Ordered CHEST 1 VIEW (PORTABLE) Stat Exams 11/28/21 10:19 Completed - Other Procedures and Tests Respiratory Therapy 11/28/21 14:04 Oxygen NASAL CANNULA 4 lpm 11/28/21 21:00 BiPap/CPAP ROUTINE Assessment/Plan (1) CHF (congestive heart failure) Current Visit: Yes Status: Chronic Assessment & Plan: IV lasix ordered, has brooks. strict I/Os with low sodium diet Code(s): I50.9 - HEART FAILURE, UNSPECIFIED (2) Pneumonia Current Visit: Yes Status: Acute Assessment & Plan: rocephin and zithromax are ordered, has more of a chf picture in my opinion but will cover with mild elevation of procalcitonin Code(s): J18.9 - PNEUMONIA, UNSPECIFIED ORGANISM (3) CKD (chronic kidney disease) Current Visit: No Status: Chronic Code(s): N18.9 - CHRONIC KIDNEY DISEASE, UNSPECIFIED (4) Diabetes mellitus Current Visit: No Status: Chronic Qualifiers: Code(s): E11.9 - TYPE 2 DIABETES MELLITUS WITHOUT COMPLICATIONS
[2021-11-28] MEDS: Lantus Insulin SQ SCH (16:51)
[2021-11-28] MEDS: HUMALOG SQ SCH (16:51)
[2021-11-28] MEDS: Zithromax 500 MG/ 250 ML NaCl Premix 500 MG/250 ML IVPB IV SCH (16:53)
[2021-11-28] MEDS ORDERED: Lasix 40 MG/4 ML IV SCH (17:00)
[2021-11-28] MEDS: ULTRAM 50 MG PO PRN (18:57)
[2021-11-28] MEDS ORDERED: PROVENTIL 2.5 MG/3 ML NEB IH ONE (19:16)
[2021-11-28] MEDS ORDERED: PROVENTIL 2.5 MG/3 ML NEB IH PRN (20:35)
[2021-11-28] MEDS: Klor Con PO SCH (21:19)
[2021-11-28] MEDS: LYRICA 100MG PO SCH (21:19)
[2021-11-28] MEDS: Namenda 5 MG PO SCH (21:20)
[2021-11-28] MEDS: ELIQUIS 2.5 MG TABLET PO SCH (21:20)
[2021-11-28] MEDS: ZOCOR 20MG PO SCH (21:20)
[2021-11-28] MEDS ORDERED: NON-FORMULARY ITEM (Rosuvastatin Calcium [Rosuvastatin Calcium] 10 MG Tablet) PO SCH (22:00)
[2021-11-28] MEDS ORDERED: NON-FORMULARY ITEM (Potassium Chloride [Potassium Chloride] 10 MEQ Tablet.Er) PO SCH (22:00)
[2021-11-28] MEDS ORDERED: NON-FORMULARY ITEM (Apixaban*** [Eliquis 5 Mg Tablet***] 5 MG Tablet) PO SCH (22:00)
[2021-11-28 23:22] LABS: A-aADO2 197; ABG HEMOGLOBIN 14.6; ABG POTASSIUM 4.1 (3.5-5.1); ARTERIAL BLD GAS O2 SATURATION 79.8 % (95-100); ARTERIAL BLOOD GAS BASE EXCESS 6.3 (-2.0-2.0); ARTERIAL BLOOD GAS FIO2 44 %; ARTERIAL BLOOD GAS PCO2 56 mmHg (35-45); ARTERIAL BLOOD GAS pH 7.38 (7.35-7.45); CARBOXYHEMOGLOBIN 1.9 % THgb (0.0-6.9); HCO3- 33.1 (22-28); HGB O2 SAT 77.6 g/dF (94-100); Methhemoglobin 0.9 % (1.4-1.5)
[2021-11-28 23:23] LABS: ABG SITE RIGHT RADIAL; ALLEN TEST OK? YES; ARTERIAL BLOOD GAS PEEP 14 cmH2O; ARTERIAL BLOOD GAS PO2 47 mmHg (75-100); ARTERIAL BLOOD GAS VENT MODE CPAP
[2021-11-28] MEDS: Coreg 3.125 MG PO SCH (23:52)
[2021-11-29 04:40] LABS: A-aADO2 211; ABG HEMOGLOBIN 11.4; ABG POTASSIUM 4.8 (3.5-5.1); ARTERIAL BLD GAS O2 SATURATION 92.9 % (95-100); ARTERIAL BLOOD GAS BASE EXCESS 9.7 (-2.0-2.0); ARTERIAL BLOOD GAS FIO2 50 %; ARTERIAL BLOOD GAS PO2 67 mmHg (75-100); ARTERIAL BLOOD GAS pH 7.38 (7.35-7.45); CARBOXYHEMOGLOBIN 1.4 % THgb (0.0-6.9); HCO3- 37.3 (22-28); HGB O2 SAT 90.9 g/dF (94-100); Methhemoglobin 0.8 % (1.4-1.5)
[2021-11-29 04:41] LABS: ARTERIAL BLOOD GAS PCO2 63 mmHg (35-45)
[2021-11-29 04:42] LABS: ABG SITE LEFT BRACHIAL
[2021-11-29 05:28] LABS: Hematocrit 35.5 % (35-47); Hemoglobin 10.5 g/dL (12.0-16.0); Mean Cell Volume 97.3 fL (78-100); Mean Corpuscular Hemoglobin 28.8 pg (26-32); Mean Corpuscular Hgb Concent. 29.6 g/dL (32-36); Mean Platelet Volume 12.6 fL (7.5-11.0); Platelet Count 142 x10^3/uL (150-450); Red Blood Count 3.65 x10^6/uL (4.1-5.4); Red Cell Distribution Width 18.3 % (11.5-14.0); White Blood Count 8.2 x10^3/uL (4.0-10.5)
[2021-11-29 06:05] LABS: ANION GAP 9.9 MEQ/L (5-15); Calcium 8.6 mg/dL (8.4-10.2); Creatinine 1 1.26 mg/dL (0.52-1.04); EST GLOMERULAR FILTRATION RATE 44.4 ML/MIN; Potassium 4.9 mmol/L (3.5-5.1)
[2021-11-29] MEDS: HUMALOG SQ SCH ×3 (07:47→17:16)
--- NOTE | 2021-11-29 08:01 | PCM.NOTE ---
Date and Time: 11/29/21 0758 Subjective Assessment: patient required bipap overnight, currently on nasal cannula. states she feels a little better, slightly less short of breath. Objective Exam General Appearance: obese Neurologic Exam: alert, oriented x 3 Respiratory Exam: crackles/rales Cardiovascular Exam: regular rate/rhythm, normal heart sounds Gastrointestinal/Abdomen Exam: soft, No tenderness, No mass Extremity Exam: normal inspection, normal range of motion OBJECTIVE DATA Vital Signs: Vital Signs - 24 hr Temp Pulse Resp BP Pulse Ox 11/29/21 07:10 50 L 18 92 L 11/29/21 03:13 96.9 F 44 L 16 128/58 100 11/29/21 00:00 97.5 F 47 L 24 124/60 99 11/28/21 19:52 97.3 F 66 17 128/60 92 L 11/28/21 19:15 67 20 93 L 11/28/21 16:00 97.3 F 46 L 18 146/67 96 11/28/21 13:35 94 L 11/28/21 13:24 97.0 F 44 L 121/53 96 11/28/21 12:16 96 11/28/21 12:08 44 L 18 121/53 95 11/28/21 10:06 20 96 11/28/21 09:57 97.0 F 46 L 22 149/60 97 Pain Assessment - Last Documented Pain Intensity 6 Intake and Output: Intake & Output 11/26/21 11/27/21 11/28/21 11/29/21 11:59 11:59 11:59 11:59 Intake Total 1287 Output Total 1075 Balance 212 Weight 122.47 kg 123.7 kg Lab Results: Lab Results-Last 24 Hours 11/28/21 11/28/21 11/28/21 Range/Units 10:18 10:50 10:50 WBC 8.6 (4.0-10.5) x10^3/uL RBC 3.84 L (4.1-5.4) x10^6/uL Hgb 11.2 L (12.0-16.0) g/dL Hct 36.7 (35-47) % MCV 95.6 (78-100) fL MCH 29.2 (26-32) pg MCHC 30.5 L (32-36) g/dL RDW 18.4 H (11.5-14.0) % Plt Count 165 (150-450) x10^3/uL MPV 12.6 H (7.5-11.0) fL Gran % 67.5 H (36.0-66.0) % Immature Gran % (Auto) 0.5 H (0.00-0.4) % Nucleat RBC Rel Count 0.0 (0.00-0.1) % Eos # (Auto) 0.01 (0-0.5) x10^3/uL Immature Gran # (Auto) 0.04 H (0.00-0.03) x10^3u/L Absolute Lymphs (auto) 1.93 (1.0-4.6) x10^3/uL Absolute Monos (auto) 0.80 (0.0-1.3) x10^3/uL Absolute Nucleated RBC 0.00 (0.00-0.01) x10^3u/L Lymphocytes % 22.3 L (24.0-44.0) % Monocytes % 9.3 (0.0-12.0) % Eosinophils % 0.1 (0.00-5.0) % Basophils % 0.3 (0.0-0.4) % Absolute Granulocytes 5.83 (1.4-6.9) x10^3/uL Basophils # 0.03 (0-0.4) x10^3/uL PT (9.4-12.5) SECONDS INR (0.8-3.0) D-Dimer (0.0-0.50) mg/L Puncture Site pCO2 (35-45) mmHg pO2 (75-100) mmHg Base Excess (-2.0-2.0) O2 Saturation (94-100) g/dF ABG pH (7.35-7.45) ABG HCO3 (22-28) ABG O2 Sat (Measured) (95-100) % Ángel Test A-a Gradient a/A Ratio Hemoglobin Carboxyhemoglobin (0.0-6.9) % THgb Methemoglobin (1.4-1.5) % Temperature C POC O2 Flow Rate % Vent Mode PEEP cmH2O Inspiratory BiPAP Expiratory BiPAP Sodium 140 (137-145) mmol/L Potassium 4.6 (3.5-5.1) mmol/L Chloride 98 (98-107) mmol/L Carbon Dioxide 35 H (22-30) mmol/L Anion Gap 10.8 (5-15) MEQ/L BUN 29 H (7-17) mg/dL Creatinine 1.35 H (0.52-1.04) mg/dL Estimated GFR 41.0 ML/MIN Glucose 105 (74-106) mg/dL POC Glucometer (74 to 106) mg/dL Lactic Acid (0.4-2.0) Calcium 9.0 (8.4-10.2) mg/dL Magnesium (1.6-2.3) mg/dL Total Bilirubin 0.90 (0.2-1.3) mg/dL AST 82 H (14-36) U/L ALT 59 H (0-35) U/L Alkaline Phosphatase 81 (38-126) U/L NT-Pro-B Natriuret Pep (0-900) pg/mL Serum Total Protein 7.0 (6.3-8.2) g/dL Albumin 3.9 (3.5-5.0) g/dL Procalcitonin (0.030-0.080) ng/mL Urinalys Dipstick Clnc Urine Color (YELLOW) Urine Appearance (CLEAR) Urine pH (5-6) Ur Specific Dyke (1.005-1.025) POC Urine Protein Conf (Negative) Urine Ketones (NEGATIVE) Urine Nitrite (NEGATIVE) Urine Bilirubin (NEGATIVE) Urine Urobilinogen (0-1) mg/dL Urine Leukocytes (NEGATIVE) Urine WBC (Auto) (0-5) /HPF Urine RBC (Auto) (0-2) /HPF U Hyaline Cast (Auto) (0-2) /LPF U Epithel Cells (Auto) (FEW) /HPF Urine Bacteria (Auto) (NEGATIVE) /HPF Urine RBC (0-5) Kervin/ul Urine Mucus (Auto) (NEGATIVE) /HPF Ur Culture Indicated? Urine Glucose (NEGATIVE) mg/dL Influenza Type A Ag NEGATIVE (NEGATIVE) Influenza Type B Ag NEGATIVE (NEGATIVE) RSV (PCR) NEGATIVE (Negative) SARS-CoV-2 (PCR) NEGATIVE (NEGATIVE) 11/28/21 11/28/21 11/28/21 Range/Units 10:50 10:50 10:50 WBC (4.0-10.5) x10^3/uL RBC (4.1-5.4) x10^6/uL Hgb (12.0-16.0) g/dL Hct (35-47) % MCV (78-100) fL MCH (26-32) pg MCHC (32-36) g/dL RDW (11.5-14.0) % Plt Count (150-450) x10^3/uL MPV (7.5-11.0) fL Gran % (36.0-66.0) % Immature Gran % (Auto) (0.00-0.4) % Nucleat RBC Rel Count (0.00-0.1) % Eos # (Auto) (0-0.5) x10^3/uL Immature Gran # (Auto) (0.00-0.03) x10^3u/L Absolute Lymphs (auto) (1.0-4.6) x10^3/uL Absolute Monos (auto) (0.0-1.3) x10^3/uL Absolute Nucleated RBC (0.00-0.01) x10^3u/L Lymphocytes % (24.0-44.0) % Monocytes % (0.0-12.0) % Eosinophils % (0.00-5.0) % Basophils % (0.0-0.4) % Absolute Granulocytes (1.4-6.9) x10^3/uL Basophils # (0-0.4) x10^3/uL PT 12.4 (9.4-12.5) SECONDS INR 1.19 (0.8-3.0) D-Dimer 0.41 (0.0-0.50) mg/L Puncture Site pCO2 (35-45) mmHg pO2 (75-100) mmHg Base Excess (-2.0-2.0) O2 Saturation (94-100) g/dF ABG pH (7.35-7.45) ABG HCO3 (22-28) ABG O2 Sat (Measured) (95-100) % Ángel Test A-a Gradient a/A Ratio Hemoglobin Carboxyhemoglobin (0.0-6.9) % THgb Methemoglobin (1.4-1.5) % Temperature C POC O2 Flow Rate % Vent Mode PEEP cmH2O Inspiratory BiPAP Expiratory BiPAP Sodium (137-145) mmol/L Potassium (3.5-5.1) mmol/L Chloride (98-107) mmol/L Carbon Dioxide (22-30) mmol/L Anion Gap (5-15) MEQ/L BUN (7-17) mg/dL Creatinine (0.52-1.04) mg/dL Estimated GFR ML/MIN Glucose (74-106) mg/dL POC Glucometer (74 to 106) mg/dL Lactic Acid (0.4-2.0) Calcium (8.4-10.2) mg/dL Magnesium 2.4 H (1.6-2.3) mg/dL Total Bilirubin (0.2-1.3) mg/dL AST (14-36) U/L ALT (0-35) U/L Alkaline Phosphatase (38-126) U/L NT-Pro-B Natriuret Pep 6170 H (0-900) pg/mL Serum Total Protein (6.3-8.2) g/dL Albumin (3.5-5.0) g/dL Procalcitonin (0.030-0.080) ng/mL Urinalys Dipstick Clnc Urine Color (YELLOW) Urine Appearance (CLEAR) Urine pH (5-6) Ur Specific Dyke (1.005-1.025) POC Urine Protein Conf (Negative) Urine Ketones (NEGATIVE) Urine Nitrite (NEGATIVE) Urine Bilirubin (NEGATIVE) Urine Urobilinogen (0-1) mg/dL Urine Leukocytes (NEGATIVE) Urine WBC (Auto) (0-5) /HPF Urine RBC (Auto) (0-2) /HPF U Hyaline Cast (Auto) (0-2) /LPF U Epithel Cells (Auto) (FEW) /HPF Urine Bacteria (Auto) (NEGATIVE) /HPF Urine RBC (0-5) Kervin/ul Urine Mucus (Auto) (NEGATIVE) /HPF Ur Culture Indicated? Urine Glucose (NEGATIVE) mg/dL Influenza Type A Ag (NEGATIVE) Influenza Type B Ag (NEGATIVE) RSV (PCR) (Negative) SARS-CoV-2 (PCR) (NEGATIVE) 11/28/21 11/28/21 11/28/21 Range/Units 10:50 11:00 12:02 WBC (4.0-10.5) x10^3/uL RBC (4.1-5.4) x10^6/uL Hgb (12.0-16.0) g/dL Hct (35-47) % MCV (78-100) fL MCH (26-32) pg MCHC (32-36) g/dL RDW (11.5-14.0) % Plt Count (150-450) x10^3/uL MPV (7.5-11.0) fL Gran % (36.0-66.0) % Immature Gran % (Auto) (0.00-0.4) % Nucleat RBC Rel Count (0.00-0.1) % Eos # (Auto) (0-0.5) x10^3/uL Immature Gran # (Auto) (0.00-0.03) x10^3u/L Absolute Lymphs (auto) (1.0-4.6) x10^3/uL Absolute Monos (auto) (0.0-1.3) x10^3/uL Absolute Nucleated RBC (0.00-0.01) x10^3u/L Lymphocytes % (24.0-44.0) % Monocytes % (0.0-12.0) % Eosinophils % (0.00-5.0) % Basophils % (0.0-0.4) % Absolute Granulocytes (1.4-6.9) x10^3/uL Basophils # (0-0.4) x10^3/uL PT (9.4-12.5) SECONDS INR (0.8-3.0) D-Dimer (0.0-0.50) mg/L Puncture Site pCO2 (35-45) mmHg pO2 (75-100) mmHg Base Excess (-2.0-2.0) O2 Saturation (94-100) g/dF ABG pH (7.35-7.45) ABG HCO3 (22-28) ABG O2 Sat (Measured) (95-100) % Ángel Test A-a Gradient a/A Ratio Hemoglobin Carboxyhemoglobin (0.0-6.9) % THgb Methemoglobin (1.4-1.5) % Temperature C POC O2 Flow Rate % Vent Mode PEEP cmH2O Inspiratory BiPAP Expiratory BiPAP Sodium (137-145) mmol/L Potassium (3.5-5.1) mmol/L Chloride (98-107) mmol/L Carbon Dioxide (22-30) mmol/L Anion Gap (5-15) MEQ/L BUN (7-17) mg/dL Creatinine (0.52-1.04) mg/dL Estimated GFR ML/MIN Glucose (74-106) mg/dL POC Glucometer (74 to 106) mg/dL Lactic Acid 1.7 (0.4-2.0) Calcium (8.4-10.2) mg/dL Magnesium (1.6-2.3) mg/dL Total Bilirubin (0.2-1.3) mg/dL AST (14-36) U/L ALT (0-35) U/L Alkaline Phosphatase (38-126) U/L NT-Pro-B Natriuret Pep (0-900) pg/mL Serum Total Protein (6.3-8.2) g/dL Albumin (3.5-5.0) g/dL Procalcitonin 0.270 H (0.030-0.080) ng/mL Urinalys Dipstick Clnc MAIN LAB Urine Color YELLOW (YELLOW) Urine Appearance CLEAR (CLEAR) Urine pH 5.5 (5-6) Ur Specific Dyke 1.020 (1.005-1.025) POC Urine Protein Conf 30 (Negative) Urine Ketones NEGATIVE (NEGATIVE) Urine Nitrite NEGATIVE (NEGATIVE) Urine Bilirubin NEGATIVE (NEGATIVE) Urine Urobilinogen 0.2 (0-1) mg/dL Urine Leukocytes TRACE (NEGATIVE) Urine WBC (Auto) 0-2 (0-5) /HPF Urine RBC (Auto) NONE (0-2) /HPF U Hyaline Cast (Auto) 26-50 (0-2) /LPF U Epithel Cells (Auto) RARE (FEW) /HPF Urine Bacteria (Auto) RARE (NEGATIVE) /HPF Urine RBC NEGATIVE (0-5) Kervin/ul Urine Mucus (Auto) SLIGHT (NEGATIVE) /HPF Ur Culture Indicated? YES Urine Glucose NEGATIVE (NEGATIVE) mg/dL Influenza Type A Ag (NEGATIVE) Influenza Type B Ag (NEGATIVE) RSV (PCR) (Negative) SARS-CoV-2 (PCR) (NEGATIVE) 11/28/21 11/28/21 11/28/21 Range/Units 16:29 20:27 22:26 WBC (4.0-10.5) x10^3/uL RBC (4.1-5.4) x10^6/uL Hgb (12.0-16.0) g/dL Hct (35-47) % MCV (78-100) fL MCH (26-32) pg MCHC (32-36) g/dL RDW (11.5-14.0) % Plt Count (150-450) x10^3/uL MPV (7.5-11.0) fL Gran % (36.0-66.0) % Immature Gran % (Auto) (0.00-0.4) % Nucleat RBC Rel Count (0.00-0.1) % Eos # (Auto) (0-0.5) x10^3/uL Immature Gran # (Auto) (0.00-0.03) x10^3u/L Absolute Lymphs (auto) (1.0-4.6) x10^3/uL Absolute Monos (auto) (0.0-1.3) x10^3/uL Absolute Nucleated RBC (0.00-0.01) x10^3u/L Lymphocytes % (24.0-44.0) % Monocytes % (0.0-12.0) % Eosinophils % (0.00-5.0) % Basophils % (0.0-0.4) % Absolute Granulocytes (1.4-6.9) x10^3/uL Basophils # (0-0.4) x10^3/uL PT (9.4-12.5) SECONDS INR (0.8-3.0) D-Dimer (0.0-0.50) mg/L Puncture Site RIGHT RADIAL pCO2 56 H (35-45) mmHg pO2 47 L* (75-100) mmHg Base Excess 6.3 H (-2.0-2.0) O2 Saturation 77.6 L (94-100) g/dF ABG pH 7.38 (7.35-7.45) ABG HCO3 33.1 H* (22-28) ABG O2 Sat (Measured) 79.8 L (95-100) % Ángel Test YES A-a Gradient 197 a/A Ratio 0.19 Hemoglobin 14.6 Carboxyhemoglobin 1.9 (0.0-6.9) % THgb Methemoglobin 0.9 L (1.4-1.5) % Temperature 37.0 C POC O2 Flow Rate 44 % Vent Mode CPAP PEEP 14 cmH2O Inspiratory BiPAP Expiratory BiPAP Sodium (137-145) mmol/L Potassium 4.1 (3.5-5.1) mmol/L Chloride (98-107) mmol/L Carbon Dioxide (22-30) mmol/L Anion Gap (5-15) MEQ/L BUN (7-17) mg/dL Creatinine (0.52-1.04) mg/dL Estimated GFR ML/MIN Glucose (74-106) mg/dL POC Glucometer 85 214 H (74 to 106) mg/dL Lactic Acid (0.4-2.0) Calcium (8.4-10.2) mg/dL Magnesium (1.6-2.3) mg/dL Total Bilirubin (0.2-1.3) mg/dL AST (14-36) U/L ALT (0-35) U/L Alkaline Phosphatase (38-126) U/L NT-Pro-B Natriuret Pep (0-900) pg/mL Serum Total Protein (6.3-8.2) g/dL Albumin (3.5-5.0) g/dL Procalcitonin (0.030-0.080) ng/mL Urinalys Dipstick Clnc Urine Color (YELLOW) Urine Appearance (CLEAR) Urine pH (5-6) Ur Specific Dyke (1.005-1.025) POC Urine Protein Conf (Negative) Urine Ketones (NEGATIVE) Urine Nitrite (NEGATIVE) Urine Bilirubin (NEGATIVE) Urine Urobilinogen (0-1) mg/dL Urine Leukocytes (NEGATIVE) Urine WBC (Auto) (0-5) /HPF Urine RBC (Auto) (0-2) /HPF U Hyaline Cast (Auto) (0-2) /LPF U Epithel Cells (Auto) (FEW) /HPF Urine Bacteria (Auto) (NEGATIVE) /HPF Urine RBC (0-5) Kervin/ul Urine Mucus (Auto) (NEGATIVE) /HPF Ur Culture Indicated? Urine Glucose (NEGATIVE) mg/dL Influenza Type A Ag (NEGATIVE) Influenza Type B Ag (NEGATIVE) RSV (PCR) (Negative) SARS-CoV-2 (PCR) (NEGATIVE) 11/29/21 11/29/21 11/29/21 Range/Units 04:35 04:45 04:45 WBC 8.2 (4.0-10.5) x10^3/uL RBC 3.65 L (4.1-5.4) x10^6/uL Hgb 10.5 L (12.0-16.0) g/dL Hct 35.5 (35-47) % MCV 97.3 (78-100) fL MCH 28.8 (26-32) pg MCHC 29.6 L (32-36) g/dL RDW 18.3 H (11.5-14.0) % Plt Count 142 L (150-450) x10^3/uL MPV 12.6 H (7.5-11.0) fL Gran % (36.0-66.0) % Immature Gran % (Auto) (0.00-0.4) % Nucleat RBC Rel Count (0.00-0.1) % Eos # (Auto) (0-0.5) x10^3/uL Immature Gran # (Auto) (0.00-0.03) x10^3u/L Absolute Lymphs (auto) (1.0-4.6) x10^3/uL Absolute Monos (auto) (0.0-1.3) x10^3/uL Absolute Nucleated RBC (0.00-0.01) x10^3u/L Lymphocytes % (24.0-44.0) % Monocytes % (0.0-12.0) % Eosinophils % (0.00-5.0) % Basophils % (0.0-0.4) % Absolute Granulocytes (1.4-6.9) x10^3/uL Basophils # (0-0.4) x10^3/uL PT (9.4-12.5) SECONDS INR (0.8-3.0) D-Dimer (0.0-0.50) mg/L Puncture Site LEFT BRACHIAL pCO2 63 H* (35-45) mmHg pO2 67 L (75-100) mmHg Base Excess 9.7 H (-2.0-2.0) O2 Saturation 90.9 L (94-100) g/dF ABG pH 7.38 (7.35-7.45) ABG HCO3 37.3 H* (22-28) ABG O2 Sat (Measured) 92.9 L (95-100) % Ángel Test NOT APPLICABLE A-a Gradient 211 a/A Ratio 0.24 Hemoglobin 11.4 Carboxyhemoglobin 1.4 (0.0-6.9) % THgb Methemoglobin 0.8 L (1.4-1.5) % Temperature 37.0 C POC O2 Flow Rate 50 % Vent Mode PEEP cmH2O Inspiratory BiPAP 16 Expiratory BiPAP 10 Sodium 138 (137-145) mmol/L Potassium 4.8 4.9 (3.5-5.1) mmol/L Chloride 102 (98-107) mmol/L Carbon Dioxide 31 H (22-30) mmol/L Anion Gap 9.9 (5-15) MEQ/L BUN 39 H (7-17) mg/dL Creatinine 1.26 H (0.52-1.04) mg/dL Estimated GFR 44.4 ML/MIN Glucose 160 H (74-106) mg/dL POC Glucometer (74 to 106) mg/dL Lactic Acid (0.4-2.0) Calcium 8.6 (8.4-10.2) mg/dL Magnesium (1.6-2.3) mg/dL Total Bilirubin (0.2-1.3) mg/dL AST (14-36) U/L ALT (0-35) U/L Alkaline Phosphatase (38-126) U/L NT-Pro-B Natriuret Pep 3120 H (0-900) pg/mL Serum Total Protein (6.3-8.2) g/dL Albumin (3.5-5.0) g/dL Procalcitonin (0.030-0.080) ng/mL Urinalys Dipstick Clnc Urine Color (YELLOW) Urine Appearance (CLEAR) Urine pH (5-6) Ur Specific Dyke (1.005-1.025) POC Urine Protein Conf (Negative) Urine Ketones (NEGATIVE) Urine Nitrite (NEGATIVE) Urine Bilirubin (NEGATIVE) Urine Urobilinogen (0-1) mg/dL Urine Leukocytes (NEGATIVE) Urine WBC (Auto) (0-5) /HPF Urine RBC (Auto) (0-2) /HPF U Hyaline Cast (Auto) (0-2) /LPF U Epithel Cells (Auto) (FEW) /HPF Urine Bacteria (Auto) (NEGATIVE) /HPF Urine RBC (0-5) Kervin/ul Urine Mucus (Auto) (NEGATIVE) /HPF Ur Culture Indicated? Urine Glucose (NEGATIVE) mg/dL Influenza Type A Ag (NEGATIVE) Influenza Type B Ag (NEGATIVE) RSV (PCR) (Negative) SARS-CoV-2 (PCR) (NEGATIVE) 11/29/21 Range/Units 07:03 WBC (4.0-10.5) x10^3/uL RBC (4.1-5.4) x10^6/uL Hgb (12.0-16.0) g/dL Hct (35-47) % MCV (78-100) fL MCH (26-32) pg MCHC (32-36) g/dL RDW (11.5-14.0) % Plt Count (150-450) x10^3/uL MPV (7.5-11.0) fL Gran % (36.0-66.0) % Immature Gran % (Auto) (0.00-0.4) % Nucleat RBC Rel Count (0.00-0.1) % Eos # (Auto) (0-0.5) x10^3/uL Immature Gran # (Auto) (0.00-0.03) x10^3u/L Absolute Lymphs (auto) (1.0-4.6) x10^3/uL Absolute Monos (auto) (0.0-1.3) x10^3/uL Absolute Nucleated RBC (0.00-0.01) x10^3u/L Lymphocytes % (24.0-44.0) % Monocytes % (0.0-12.0) % Eosinophils % (0.00-5.0) % Basophils % (0.0-0.4) % Absolute Granulocytes (1.4-6.9) x10^3/uL Basophils # (0-0.4) x10^3/uL PT (9.4-12.5) SECONDS INR (0.8-3.0) D-Dimer (0.0-0.50) mg/L Puncture Site pCO2 (35-45) mmHg pO2 (75-100) mmHg Base Excess (-2.0-2.0) O2 Saturation (94-100) g/dF ABG pH (7.35-7.45) ABG HCO3 (22-28) ABG O2 Sat (Measured) (95-100) % Ángel Test A-a Gradient a/A Ratio Hemoglobin Carboxyhemoglobin (0.0-6.9) % THgb Methemoglobin (1.4-1.5) % Temperature C POC O2 Flow Rate % Vent Mode PEEP cmH2O Inspiratory BiPAP Expiratory BiPAP Sodium (137-145) mmol/L Potassium (3.5-5.1) mmol/L Chloride (98-107) mmol/L Carbon Dioxide (22-30) mmol/L Anion Gap (5-15) MEQ/L BUN (7-17) mg/dL Creatinine (0.52-1.04) mg/dL Estimated GFR ML/MIN Glucose (74-106) mg/dL POC Glucometer 159 H (74 to 106) mg/dL Lactic Acid (0.4-2.0) Calcium (8.4-10.2) mg/dL Magnesium (1.6-2.3) mg/dL Total Bilirubin (0.2-1.3) mg/dL AST (14-36) U/L ALT (0-35) U/L Alkaline Phosphatase (38-126) U/L NT-Pro-B Natriuret Pep (0-900) pg/mL Serum Total Protein (6.3-8.2) g/dL Albumin (3.5-5.0) g/dL Procalcitonin (0.030-0.080) ng/mL Urinalys Dipstick Clnc Urine Color (YELLOW) Urine Appearance (CLEAR) Urine pH (5-6) Ur Specific Dyke (1.005-1.025) POC Urine Protein Conf (Negative) Urine Ketones (NEGATIVE) Urine Nitrite (NEGATIVE) Urine Bilirubin (NEGATIVE) Urine Urobilinogen (0-1) mg/dL Urine Leukocytes (NEGATIVE) Urine WBC (Auto) (0-5) /HPF Urine RBC (Auto) (0-2) /HPF U Hyaline Cast (Auto) (0-2) /LPF U Epithel Cells (Auto) (FEW) /HPF Urine Bacteria (Auto) (NEGATIVE) /HPF Urine RBC (0-5) Kervin/ul Urine Mucus (Auto) (NEGATIVE) /HPF Ur Culture Indicated? Urine Glucose (NEGATIVE) mg/dL Influenza Type A Ag (NEGATIVE) Influenza Type B Ag (NEGATIVE) RSV (PCR) (Negative) SARS-CoV-2 (PCR) (NEGATIVE) Radiology Exams: Radiology Procedures Category Date Time Status CHEST 1 VIEW (PORTABLE) IN AM Exams 11/29/21 06:00 Ordered CHEST 1 VIEW (PORTABLE) Stat Exams 11/28/21 10:19 Completed ECHO W/2D AND DOPPLER [US] Routine Exams 11/29/21 08:00 Ordered Multi-Disciplinary Progress Notes: Multi-Disciplinary Progress Notes 11/28/21 23:12 Respiratory Note by Bess Olivera RT CALLED @ 1910 DUE TO PT C/O SOB. RN REQUESTED A NEBULIZER BE GIVEN. ALBUTEROL NEB GIVEN AT THAT TIME. SOB IMPROVED. WHEN PATIENT WAS READY TO GO TO SLEEP, CPAP OF 14 WITH 4L O2 PLACED ON PATIENT. PATIENT REFUSED TO WEAR 10 MINUTES LATER DUE TO THE AIR THAT WAS BLOWING FROM THE EXHALATION VALVE. AFTER PLACING ON 4L NC, SPO2 DECREASED TO 78%. INCREASED TO 6L NC AND ENCOURAGED DEEP BREATHING. SPO2 82%. THEN ADVISED PATIENT THAT THE CPAP WAS NEEDED. AFTER PLACING ON CPAP +14 WITH 6L (44%FI02) PATIENTS SPO2 ONLY INCREASED TO 86%. PLACED ON BIPAP WITH 50% FIO2, PT'S SPO2 INCREASED TO 94%. REPEAT ABG IN AM. Initialized on 11/28/21 23:12 - END OF NOTE 11/28/21 16:36 Pharmacy Note by Johnson Oseguera Please be aware of possible drug interaction with Zithromax and Cordarone and Aricept. May prolong QT interval. Initialized on 11/28/21 16:36 - END OF NOTE Assessment/Plan (1) CHF (congestive heart failure) Current Visit: Yes Status: Chronic Assessment & Plan: patient had 1L urine output but positive fluid balance if I/Os are correct, will change to IV bumex to see if we get a better response, pro bnp is improved. Code(s): I50.9 - HEART FAILURE, UNSPECIFIED (2) Pneumonia Current Visit: Yes Status: Acute Assessment & Plan: on rocephin/zithromax. chest xray pending, might need to broaden coverage based on skilled nursing residence Code(s): J18.9 - PNEUMONIA, UNSPECIFIED ORGANISM (3) CKD (chronic kidney disease) Current Visit: No Status: Chronic Code(s): N18.9 - CHRONIC KIDNEY DISEASE, UNSPECIFIED (4) Diabetes mellitus Current Visit: No Status: Chronic Qualifiers: Code(s): E11.9 - TYPE 2 DIABETES MELLITUS WITHOUT COMPLICATIONS
--- NOTE | 2021-11-29 08:59 | XRAY ---
Indication: CHF. Comparison: One day earlier. Portable chest unchanged again demonstrating diffuse bilateral patchy airspace disease right greater than left, left midlung subsegmental atelectasis, borderline cardiomegaly, and central vascular prominence. No new cardiopulmonary abnormalities.
[2021-11-29] MEDS: Zithromax 500 MG/ 250 ML NaCl Premix 500 MG/250 ML IVPB IV SCH (09:09)
[2021-11-29] MEDS: Klor Con PO SCH ×2 (09:10→21:12)
[2021-11-29] MEDS: LYRICA 100MG PO SCH ×2 (09:10→21:12)
[2021-11-29] MEDS: BUMEX 1 MG IV SCH ×2 (09:10→21:12)
[2021-11-29] MEDS: Namenda 5 MG PO SCH ×2 (09:10→21:13)
[2021-11-29] MEDS: Protonix 40MG Tablet PO SCH (09:10)
[2021-11-29] MEDS: ELIQUIS 2.5 MG TABLET PO SCH ×2 (09:10→21:12)
[2021-11-29] MEDS: Aricept 10 MG PO SCH (09:10)
[2021-11-29] MEDS: ZOLOFT 50 MG TABLET PO SCH (09:10)
[2021-11-29] MEDS: ECOTRIN 81 MG PO SCH (09:10)
[2021-11-29] MEDS: ROCEPHIN 1 Gm-D5w 50 ml Bag** 1 G/50 ML IVPB IV SCH (09:11)
[2021-11-29] MEDS: ULTRAM 50 MG PO PRN (09:17)
[2021-11-29] MEDS: Cordarone 200 MG PO SCH (09:23)
[2021-11-29] MEDS: NORVASC 5 MG PO SCH (09:23)
[2021-11-29] MEDS: Coreg 3.125 MG PO SCH ×2 (09:24→21:05)
[2021-11-29] MEDS: Cozaar 50 MG PO SCH (09:24)
[2021-11-29] MEDS: Zestril 5 MG PO SCH (09:25)
[2021-11-29] MEDS ORDERED: INS SQ SCH (10:00)
[2021-11-29] MEDS ORDERED: INSULIN LISPRO 100 UNIT/ML SQ SCH (10:00)
[2021-11-29] MEDS ORDERED: NON-FORMULARY ITEM (Losartan Potassium [Losartan Potassium] 100 MG Tablet) PO SCH (10:00)
[2021-11-29] MEDS ORDERED: NON-FORMULARY ITEM (Insulin Lispro 1 UNIT Ml) SQ SCH ×2 (10:00)
[2021-11-29] MEDS ORDERED: ROCEPHIN 1 Gm-D5w 50 ml Bag** 1 G/50 ML IVPB IV SCH (10:00)
[2021-11-29] MEDS ORDERED: NON-FORMULARY ITEM (Amlodipine Besylate [Amlodipine Besylate] 2.5 MG Tablet) PO SCH (10:00)
[2021-11-29] MEDS: Lantus Insulin SQ SCH (17:17)
[2021-11-29] MEDS: ZOCOR 20MG PO SCH (21:12)
[2021-11-30 05:29] LABS: Basophil (Absolute #) 0.02 x10^3/uL (0-0.4); Eosinophil % 1.8 % (0.00-5.0); Eosinophil (Absolute #) 0.11 x10^3/uL (0-0.5); Hematocrit 33.8 % (35-47); Hemoglobin 9.9 g/dL (12.0-16.0); Lymphocyte (Absolute #) 1.38 x10^3/uL (1.0-4.6); Lymphocytes % 22.3 % (24.0-44.0); Mean Cell Volume 96.6 fL (78-100); Mean Corpuscular Hemoglobin 28.3 pg (26-32); Mean Corpuscular Hgb Concent. 29.3 g/dL (32-36); Mean Platelet Volume 12.1 fL (7.5-11.0); Monocyte (Absolute #) 0.66 x10^3/uL (0.0-1.3); Monocytes % 10.7 % (0.0-12.0); Neutrophil % 64.6 % (36.0-66.0); Platelet Count 138 x10^3/uL (150-450); Red Cell Distribution Width 17.7 % (11.5-14.0); White Blood Count 6.2 x10^3/uL (4.0-10.5)
[2021-11-30 06:00] LABS: ANION GAP 7.4 MEQ/L (5-15); Calcium 8.6 mg/dL (8.4-10.2); Creatinine 1 1.09 mg/dL (0.52-1.04); EST GLOMERULAR FILTRATION RATE 52.4 ML/MIN; Potassium 4.7 mmol/L (3.5-5.1)
[2021-11-30] MEDS: BUMEX 1 MG IV SCH ×2 (07:47→22:07)
[2021-11-30] MEDS: HUMALOG SQ SCH ×3 (07:47→17:27)
--- NOTE | 2021-11-30 08:32 | PCM.NOTE ---
Date and Time: 11/30/21828 Subjective Assessment: patient reports her breathing is improved, her back is sore but otherwise she is stable. typically is on 3L NC at [facility] Objective Exam General Appearance: no apparent distress, obese Neurologic Exam: alert, oriented x 3 Skin Exam: normal color, warm, dry Respiratory Exam: crackles/rales Cardiovascular Exam: regular rate/rhythm, normal heart sounds Gastrointestinal/Abdomen Exam: soft, No tenderness, No mass Extremity Exam: normal inspection, normal range of motion, pedal edema, swelling OBJECTIVE DATA Vital Signs: Vital Signs - 24 hr Temp Pulse Resp BP Pulse Ox 11/30/21 07:57 97.9 F 53 L 16 143/66 93 L 11/30/21 04:00 97.8 F 48 L 19 126/55 96 11/29/21 23:41 97.8 F 52 L 20 138/62 95 11/29/21 22:33 101.1 F 11/29/21 19:38 97.1 F 50 L 22 144/65 93 L 11/29/21 19:08 50 L 22 93 L 11/29/21 16:00 97.3 F 49 L 16 149/65 91 L 11/29/21 11:21 52 L 18 149/63 91 L Pain Assessment - Last Documented Pain Intensity 0 Intake and Output: Intake & Output 11/27/21 11/28/21 11/29/21 11/30/21 11:59 11:59 11:59 11:59 Intake Total 1287 1382 Output Total 1075 2575 Balance 212 -1193 Weight 122.47 kg 124.7 kg 124 kg Lab Results: Lab Results-Last 24 Hours 11/29/21 11/29/21 11/29/21 Range/Units 10:59 16:35 20:25 WBC (4.0-10.5) x10^3/uL RBC (4.1-5.4) x10^6/uL Hgb (12.0-16.0) g/dL Hct (35-47) % MCV (78-100) fL MCH (26-32) pg MCHC (32-36) g/dL RDW (11.5-14.0) % Plt Count (150-450) x10^3/uL MPV (7.5-11.0) fL Gran % (36.0-66.0) % Immature Gran % (Auto) (0.00-0.4) % Nucleat RBC Rel Count (0.00-0.1) % Eos # (Auto) (0-0.5) x10^3/uL Immature Gran # (Auto) (0.00-0.03) x10^3u/L Absolute Lymphs (auto) (1.0-4.6) x10^3/uL Absolute Monos (auto) (0.0-1.3) x10^3/uL Absolute Nucleated RBC (0.00-0.01) x10^3u/L Lymphocytes % (24.0-44.0) % Monocytes % (0.0-12.0) % Eosinophils % (0.00-5.0) % Basophils % (0.0-0.4) % Absolute Granulocytes (1.4-6.9) x10^3/uL Basophils # (0-0.4) x10^3/uL Sodium (137-145) mmol/L Potassium (3.5-5.1) mmol/L Chloride (98-107) mmol/L Carbon Dioxide (22-30) mmol/L Anion Gap (5-15) MEQ/L BUN (7-17) mg/dL Creatinine (0.52-1.04) mg/dL Estimated GFR ML/MIN Glucose (74-106) mg/dL POC Glucometer 198 H 90 154 H (74 to 106) mg/dL Calcium (8.4-10.2) mg/dL NT-Pro-B Natriuret Pep (0-900) pg/mL 11/30/21 11/30/21 11/30/21 Range/Units 05:00 05:00 07:40 WBC 6.2 (4.0-10.5) x10^3/uL RBC 3.50 L (4.1-5.4) x10^6/uL Hgb 9.9 L (12.0-16.0) g/dL Hct 33.8 L (35-47) % MCV 96.6 (78-100) fL MCH 28.3 (26-32) pg MCHC 29.3 L (32-36) g/dL RDW 17.7 H (11.5-14.0) % Plt Count 138 L (150-450) x10^3/uL MPV 12.1 H (7.5-11.0) fL Gran % 64.6 (36.0-66.0) % Immature Gran % (Auto) 0.3 (0.00-0.4) % Nucleat RBC Rel Count 0.0 (0.00-0.1) % Eos # (Auto) 0.11 (0-0.5) x10^3/uL Immature Gran # (Auto) 0.02 (0.00-0.03) x10^3u/L Absolute Lymphs (auto) 1.38 (1.0-4.6) x10^3/uL Absolute Monos (auto) 0.66 (0.0-1.3) x10^3/uL Absolute Nucleated RBC 0.00 (0.00-0.01) x10^3u/L Lymphocytes % 22.3 L (24.0-44.0) % Monocytes % 10.7 (0.0-12.0) % Eosinophils % 1.8 (0.00-5.0) % Basophils % 0.3 (0.0-0.4) % Absolute Granulocytes 4.00 (1.4-6.9) x10^3/uL Basophils # 0.02 (0-0.4) x10^3/uL Sodium 140 (137-145) mmol/L Potassium 4.7 (3.5-5.1) mmol/L Chloride 101 (98-107) mmol/L Carbon Dioxide 36 H (22-30) mmol/L Anion Gap 7.4 (5-15) MEQ/L BUN 35 H (7-17) mg/dL Creatinine 1.09 H (0.52-1.04) mg/dL Estimated GFR 52.4 ML/MIN Glucose 171 H (74-106) mg/dL POC Glucometer 189 H (74 to 106) mg/dL Calcium 8.6 (8.4-10.2) mg/dL NT-Pro-B Natriuret Pep 1760 H (0-900) pg/mL Radiology Exams: Radiology Procedures Category Date Time Status CHEST 1 VIEW (PORTABLE) IN AM Exams 11/29/21 06:00 Completed CHEST 1 VIEW (PORTABLE) Stat Exams 11/28/21 10:19 Completed ECHO W/2D AND DOPPLER [US] Routine Exams 11/29/21 12:02 Taken Assessment/Plan (1) CHF (congestive heart failure) Current Visit: Yes Status: Chronic Assessment & Plan: diuresing and bnp is markedly improved. doing better, currently on 4L. will continue current management, could likely return to [facility] tomorrow Code(s): I50.9 - HEART FAILURE, UNSPECIFIED (2) Pneumonia Current Visit: Yes Status: Acute Assessment & Plan: on rocephin and zithromax, continue current management Code(s): J18.9 - PNEUMONIA, UNSPECIFIED ORGANISM (3) CKD (chronic kidney disease) Current Visit: No Status: Chronic Code(s): N18.9 - CHRONIC KIDNEY DISEASE, UNSPECIFIED (4) Diabetes mellitus Current Visit: No Status: Chronic Qualifiers: Code(s): E11.9 - TYPE 2 DIABETES MELLITUS WITHOUT COMPLICATIONS
[2021-11-30] MEDS: Klor Con PO SCH ×2 (09:15→22:02)
[2021-11-30] MEDS: ELIQUIS 2.5 MG TABLET PO SCH ×2 (09:15→22:03)
[2021-11-30] MEDS: Protonix 40MG Tablet PO SCH (09:15)
[2021-11-30] MEDS: LYRICA 100MG PO SCH ×2 (09:15→22:03)
[2021-11-30] MEDS: Cozaar 50 MG PO SCH (09:15)
[2021-11-30] MEDS: ECOTRIN 81 MG PO SCH (09:15)
[2021-11-30] MEDS: Namenda 5 MG PO SCH ×2 (09:15→22:03)
[2021-11-30] MEDS: Aricept 10 MG PO SCH (09:15)
[2021-11-30] MEDS: ZOLOFT 50 MG TABLET PO SCH (09:15)
[2021-11-30] MEDS: Cordarone 200 MG PO SCH (09:16)
[2021-11-30] MEDS: NORVASC 5 MG PO SCH (09:16)
[2021-11-30] MEDS: Zestril 5 MG PO SCH (09:17)
[2021-11-30] MEDS: Zithromax 500 MG/ 250 ML NaCl Premix 500 MG/250 ML IVPB IV SCH (09:41)
[2021-11-30] MEDS: Coreg 3.125 MG PO SCH ×2 (10:14→22:01)
[2021-11-30] MEDS: ROCEPHIN 1 Gm-D5w 50 ml Bag** 1 G/50 ML IVPB IV SCH (10:38)
[2021-11-30] MEDS: Lantus Insulin SQ SCH (17:27)
[2021-11-30] MEDS: ZOCOR 20MG PO SCH (22:03)
[2021-12-01 05:27] LABS: Absolute Neutrophil Ct (ANC) 3.69 x10^3/uL (1.4-6.9); Basophil (Absolute #) 0.03 x10^3/uL (0-0.4); Eosinophil % 2.3 % (0.00-5.0); Eosinophil (Absolute #) 0.14 x10^3/uL (0-0.5); Hematocrit 35.4 % (35-47); Hemoglobin 10.3 g/dL (12.0-16.0); Lymphocyte (Absolute #) 1.55 x10^3/uL (1.0-4.6); Lymphocytes % 25.9 % (24.0-44.0); Mean Cell Volume 97.8 fL (78-100); Mean Corpuscular Hemoglobin 28.5 pg (26-32); Mean Corpuscular Hgb Concent. 29.1 g/dL (32-36); Mean Platelet Volume 12.5 fL (7.5-11.0); Monocyte (Absolute #) 0.57 x10^3/uL (0.0-1.3); Monocytes % 9.5 % (0.0-12.0); Neutrophil % 61.6 % (36.0-66.0); Platelet Count 155 x10^3/uL (150-450); Red Blood Count 3.62 x10^6/uL (4.1-5.4); Red Cell Distribution Width 17.2 % (11.5-14.0)
[2021-12-01 06:03] LABS: ANION GAP 6.2 MEQ/L (5-15); Calcium 8.6 mg/dL (8.4-10.2); Creatinine 1 1.02 mg/dL (0.52-1.04); EST GLOMERULAR FILTRATION RATE 56.6 ML/MIN; MAGNESIUM 2.3 mg/dL (1.6-2.3); Potassium 4.8 mmol/L (3.5-5.1)
[2021-12-01] MEDS: BUMEX 1 MG IV SCH ×2 (08:10→20:49)
[2021-12-01] MEDS: HUMALOG SQ SCH ×3 (08:11→17:28)
[2021-12-01] MEDS: Coreg 3.125 MG PO SCH ×2 (11:08→20:34)
[2021-12-01] MEDS: Zestril 5 MG PO SCH (11:09)
[2021-12-01] MEDS: ZOLOFT 50 MG TABLET PO SCH (11:09)
[2021-12-01] MEDS: ELIQUIS 2.5 MG TABLET PO SCH ×2 (11:09→20:49)
[2021-12-01] MEDS: Namenda 5 MG PO SCH ×2 (11:09→20:49)
[2021-12-01] MEDS: Klor Con PO SCH ×2 (11:09→20:49)
[2021-12-01] MEDS: Aricept 10 MG PO SCH (11:09)
[2021-12-01] MEDS: LYRICA 100MG PO SCH ×2 (11:09→20:49)
[2021-12-01] MEDS: ECOTRIN 81 MG PO SCH (11:09)
[2021-12-01] MEDS: NORVASC 5 MG PO SCH (11:10)
[2021-12-01] MEDS: Cozaar 50 MG PO SCH (11:10)
[2021-12-01] MEDS: Protonix 40MG Tablet PO SCH (11:11)
[2021-12-01] MEDS: Cordarone 200 MG PO SCH (11:11)
[2021-12-01] MEDS: ROCEPHIN 1 Gm-D5w 50 ml Bag** 1 G/50 ML IVPB IV SCH (11:22)
[2021-12-01] MEDS: Zithromax 500 MG/ 250 ML NaCl Premix 500 MG/250 ML IVPB IV SCH (12:41)
[2021-12-01] MEDS: Lantus Insulin SQ SCH (17:29)
--- NOTE | 2021-12-01 19:08 | XRAY ---
Indication: Follow-up pneumonia. History CHF. Comparison: November 29, 2021 Portable chest unchanged again demonstrating diffuse bilateral patchy airspace disease, left mid lung discoid atelectasis, borderline cardiomegaly, and central vascular prominence. No new cardiopulmonary abnormalities. Comment: Preliminary interpretation made by [facility]. No critical discrepancy.
[2021-12-01] MEDS: ZOCOR 20MG PO SCH (20:49)
[2021-12-01] MEDS: ULTRAM 50 MG PO PRN (20:55)
[2021-12-02 05:47] LABS: Hematocrit 33.1 % (35-47); Hemoglobin 9.8 g/dL (12.0-16.0); Mean Cell Volume 95.7 fL (78-100); Mean Corpuscular Hemoglobin 28.3 pg (26-32); Mean Corpuscular Hgb Concent. 29.6 g/dL (32-36); Mean Platelet Volume 12.2 fL (7.5-11.0); Platelet Count 156 x10^3/uL (150-450); Red Blood Count 3.46 x10^6/uL (4.1-5.4); White Blood Count 5.6 x10^3/uL (4.0-10.5)
[2021-12-02 06:04] LABS: Calcium 8.1 mg/dL (8.4-10.2); Creatinine 1 1.02 mg/dL (0.52-1.04); EST GLOMERULAR FILTRATION RATE 56.6 ML/MIN; Potassium 4.4 mmol/L (3.5-5.1)
[2021-12-02 06:12] LABS: ANION GAP 8.4 MEQ/L (5-15)
[2021-12-02 08:12] VITALS: PULSE 50
[2021-12-02] MEDS: HUMALOG SQ SCH ×2 (08:21→12:17)
[2021-12-02] MEDS: BUMEX 1 MG IV SCH (08:21)
[2021-12-02] MEDS: ECOTRIN 81 MG PO SCH (08:22)
[2021-12-02] MEDS: Cozaar 50 MG PO SCH (08:22)
[2021-12-02] MEDS: LYRICA 100MG PO SCH (08:22)
[2021-12-02] MEDS: Aricept 10 MG PO SCH (08:23)
[2021-12-02] MEDS: ZOLOFT 50 MG TABLET PO SCH (08:23)
[2021-12-02] MEDS: Cordarone 200 MG PO SCH (08:23)
[2021-12-02] MEDS: ELIQUIS 2.5 MG TABLET PO SCH (08:23)
[2021-12-02] MEDS: Klor Con PO SCH (08:23)
[2021-12-02] MEDS: NORVASC 5 MG PO SCH (08:24)
[2021-12-02] MEDS: Coreg 3.125 MG PO SCH (08:24)
[2021-12-02] MEDS: Protonix 40MG Tablet PO SCH (08:24)
[2021-12-02] MEDS: Namenda 5 MG PO SCH (08:24)
[2021-12-02] MEDS: Zestril 5 MG PO SCH (08:25)
[2021-12-02] MEDS: ROCEPHIN 1 Gm-D5w 50 ml Bag** 1 G/50 ML IVPB IV SCH (10:11)
[2021-12-02] MEDS: Zithromax 500 MG/ 250 ML NaCl Premix 500 MG/250 ML IVPB IV SCH (10:33)
[2021-12-02 12:18] VITALS: BP 143/56; O2SAT 95
--- NOTE | 2021-12-07 11:03 | ECHO ---
DATE OF PROCEDURE: 11/29/2021 CLINICAL INFORMATION: Congestive heart failure, bradycardia, atrial fibrillation. TECHNIQUE: Transthoracic 2D and M-mode study echocardiogram. The patient underwent 2D echo, M-mode study and color flow mapping which showed mild to moderate concentric left ventricular hypertrophy with left ventricle wall thickness of 1.4 cm, normal left ventricle size and normal left ventricular systolic function with calculated ejection fraction of 65%. The left atrium appears to be moderately enlarged. The right atrium was mildly enlarged. The right ventricle was mild to moderately enlarged. There was no evidence of any pericardial effusion. Aortic root size appears to be within normal limits. There was mild to moderate calcification of the mitral annulus and valve leaflets without evidence of any significant mitral stenosis however. The aortic valve was mild to moderately calcified which appeared to be with mild narrowing of the aortic valve opening consistent with mild aortic stenosis with peak systolic gradient of 18 and mean gradient of 8 mm of Mercury was found. Tricuspid valve was opening well without evidence of restriction. The pulmonic valve was not well visualized. Color flow mapping mild aortic stenosis, mild aortic insufficiency, mild to moderate mitral regurgitation, mild to moderate tricuspid regurgitation with evidence of mild to moderate pulmonary hypertension with calculated systolic pressure of 37 mm of Mercury. IMPRESSION: 1) MILD TO MODERATE CONCENTRIC LEFT VENTRICULAR HYPERTROPHY WITH NORMAL LEFT VENTRICULAR SYSTOLIC FUNCTION. 2) CALCIFIED MITRAL VALVE APPARATUS WITHOUT EVIDENCE OF ANY STENOSIS. 3) CALCIFIC AORTIC SCLEROSIS WITH EVIDENCE OF MILD STENOSIS. 4) MILD TO MODERATE RIGHT VENTRICULAR ENLARGEMENT. 5) MILD AORTIC INSUFFICIENCY. 6) MILD TO MODERATE MITRAL REGURGITATION. 7) MILD TO MODERATE TRICUSPID REGURGITATION WITH EVIDENCE OF MILD TO MODERATE PULMONARY HYPERTENSION WITH PEAK SYSTOLIC PRESSURE OF 37 MM OF MERCURY.
--- NOTE | 2021-12-11 06:40 | PCM.DS ---
Discharge Summary Date of Admission: 11/28/21 12:55 Date of Discharge: 12/02/2021 Admitting Physician: LUIS GALLOWAY Primary Care Provider: LUIS GALLOWAY Allergies Allergies morphine Allergy (Severe, Verified 11/28/21 10:07) anaphylaxis pt went into respiratory failure and acute renal failure the last time she h ad morphine. "I was in a coma for a week" adhesive Allergy (Mild, Verified 11/28/21 10:07) Blisters aspirin Allergy (Verified 11/28/21 10:07) Difficulty Breathing PT STATES THAT SHE CAN TAKE ASPIRIN 81 MG BUT NOTHING HIGHER IN DOSE. Penicillins Allergy (Verified 11/28/21 10:07) Rash povidone-iodine [From Betadine] Allergy (Verified 11/28/21 10:07) BLISTERES soap [From Betadine] Allergy (Verified 11/28/21 10:07) Blisters Hospital Summary - Hospital Course Hospital Course: Pt. admitted for pneumonia and chf, pt. was successfully diuresed and steadily improved pneumonia back to baseline and thus stable for discharge. - Vitals & Intake/Output Vital Signs: Vital Signs Temperature 97.3 F 12/02/21 12:00 Pulse Rate 50 L 12/02/21 12:00 Respiratory Rate 18 12/02/21 12:00 Blood Pressure 143/56 12/02/21 12:00 O2 Sat by Pulse Oximetry 95 12/02/21 12:00 - Lab Result Diagrams: 12/02/21 05:19 12/02/21 05:19 Micro Results-Entire Visit: Microbiology 11/28/21 10:55 Blood Culture Gram Stain - Final Blood Blood Culture - Final Coagulase Negative Staph. Possible Contaminant. Clinical judgement required. No further workup performed. 11/28/21 10:50 Blood Culture Gram Stain - Final Blood Not Reportable Blood Culture - Final NO GROWTH 11/28/21 13:09 Urine Culture - Final Urine, Indwelling Catheter NO GROWTH 11/28/21 12:02 Urine Culture - Final Urine, Catheterized No growth. - Procedures and Test Procedures and Tests throughout Hospitalization: Therapy Orders & Screens 11/28/21 12:18 Oxygen NASAL CANNULA 2 lpm Comment: Diagnosis: CHF 11/28/21 14:04 Oxygen NASAL CANNULA 4 lpm Comment: Diagnosis: CHF 11/28/21 20:37 Respiratory Therapy Assessment DAILY Comment: Diagnosis: CHF 11/28/21 21:00 BiPap/CPAP ROUTINE Comment: PER HOME SETTINGS Diagnosis: CHF 12/01/21 08:52 Respiratory Therapy Assessment DAILY Comment: wean O2 as dom back to 3L; keep SPo2 92% or higher Diagnosis: CHF Discharge Exam General Appearance: no apparent distress, alert Neurologic Exam: alert, oriented x 3, cooperative, normal mood/affect, nml cereb ellar function, sensation nml, No motor deficits Eye Exam: PERRL, EOMI, eyes nml inspection Ears, Nose, Throat Exam: normal ENT inspection, pharynx normal, moist mucous membranes Neck Exam: normal inspection, non-tender, supple, full range of motion Respiratory Exam: normal breath sounds, lungs clear, No respiratory distress Cardiovascular Exam: regular rate/rhythm, normal heart sounds Gastrointestinal/Abdomen Exam: soft, No tenderness, No mass Pelvic Exam: deferred Rectal Exam: deferred Back Exam: normal inspection, normal range of motion, No CVA tenderness, No vertebral tenderness Extremity Exam: normal inspection, normal range of motion Skin Exam: normal color, warm, dry Final Diagnosis/Problem List - Final Discharge Diagnosis/Problem (1) Pneumonia Status: Acute Code(s): J18.9 - PNEUMONIA, UNSPECIFIED ORGANISM (2) CHF (congestive heart failure) Status: Chronic Code(s): I50.9 - HEART FAILURE, UNSPECIFIED - Discharge Discharge Date: 12/02/21 Disposition: DC TO ANY "OTHER" SHELTER Condition: Fair Prescriptions: New Azithromycin [Azithromycin 250 mg Pack] 250 mg PO UD #6 tablet Cephalexin Mh 500 mg [Keflex 500 mg] 500 mg PO TID 10 Days #30 cap Continue Sertraline HCl 50 mg [Zoloft 50 mg Tablet] 50 mg PO DAILY Amiodarone HCl 200 mg [Cordarone 200 MG] 200 mg PO DAILY PANTOPRAZOLE 40 mg Tablet [Protonix 40MG Tablet] 40 mg PO DAILY Donepezil HCl 10 mg [Aricept 10 MG] 1 tab PO DAILY Carvedilol 3.125 mg [Coreg 3.125 MG] 3.125 mg PO BID Cholecalciferol (Vitamin D3) [Vitamin D3] 1,000 units PO DAILY Aspirin 81 mg PO DAILY Rosuvastatin Calcium 10 mg PO HS Torsemide 20 mg [Demadex 20 mg] 20 mg PO BID Losartan Potassium 100 mg PO DAILY Potassium Chloride 20 meq PO BID Pregabalin 100 mg PO BID Amlodipine Besylate 2.5 mg PO DAILY Memantine HCl 5 mg [Namenda 5 MG] 5 mg PO BID Insulin Lispro [Humalog] 16 unit SQ DAILY Insulin Lispro [Humalog Oscar Kwikpen] 14 unit SQ DAILY Insulin Lispro [Humalog] 1 unit SQ QID Insulin Lispro [Humalog] 20 unit SQ DAILY Insulin Glargine [Lantus Insulin] 26 unit SQ DAILY Tramadol HCl 50 mg [Ultram 50 mg] 50 mg PO Q6H PRN PRN PRN Reason: Pain Nystatin Powder 15 gm [Nystop Powder 15 gm] 10 gm TP QID PRN PRN Reason: skin irritation Melatonin/Pyridoxine [Melatonin 5 mg Tablet] 1 each PO HS Apixaban [Eliquis 5 mg Tablet] 5 mg PO BID Forms: Transfer Record Half-Way
== END 2021-12-02 14:20 | DRG 194 ==
LOC: ED 09:56 → MED SURG 12:55
PROVIDERS: ADMIT Family Medicine; ATTEND Family Medicine
DX: J18.9 Pneumonia, unspecified organism (principal); I13.0 Hypertensive heart and chronic kidney disease with heart failure and stage 1 through stage 4 chronic kidney disease, or unspecified chronic kidney disease; I50.9 Heart failure, unspecified; E11.22 Type 2 diabetes mellitus with diabetic chronic kidney disease; N18.9 Chronic kidney disease, unspecified; E78.00 Pure hypercholesterolemia, unspecified; Z79.899 Other long term (current) drug therapy; Z20.828 Contact with and (suspected) exposure to other viral communicable diseases
CPT/HCPCS: 0241U; 36000; 36415; 36600; 71045; 76942; 80048; 80053; 81015; 82375; 82803; 82947; 83605; 83735; 83880; 84145; 85025; 85027; 85379; 85610; 87040; 87086; 93005; 93306; 94002; 94003; 94640; 94660; 94762; 99284; P9612; 36410; J0456; J0696; J1817; J1940; J7609; A9270-GY

== ENCOUNTER 2022-01-12 16:13 | Emergency (ER) | payer MEDICARE, BC ==
--- NOTE | 2022-01-12 16:21 | ERPHSYRPT ---
- History of Present Illness Time Seen by Provider: 01/12/22 16:21 Source: patient, EMS Exam Limitations: no limitations Physician History: This is a morbidly obese 71-year-old white female patient of Dr. Galloway who lives at home and has chronic back and knee problems. Patient states that her back and knee on the left side gave out and she fell onto her buttocks. She complains of low back pain and pain in the lower leg, ankle foot and toes on the left side. Patient states that she cannot take morphine but is able to take Percocet and hydrocodone medication. Patient is insulin-dependent diabetic, has hypertension, has atrial fibrillation on Eliquis, congestive heart failure, hyperlipidemia, COPD, dementia, gastroesophageal reflux disease. Occurred: just prior to arrival Reason for Fall: unknown (But says that her back and left lower leg gave out) Injuries/Pain Location: back, lower Loss of Consciousness: no loss of consciousness Quality: aching Severity of Pain-Max: moderate Severity of Pain-Current: moderate Modifying Factors: Improves With: movement Associated Symptoms (Fall): back pain (Lower), extremity injury (Has pain in her left lower leg, ankle and foot), muscle spasms, No shortness of breath Allergies/Adverse Reactions: morphine Allergy (Severe, Verified 01/12/22 16:21) anaphylaxis pt went into respiratory failure and acute renal failure the last time she had morphine. "I was in a coma for a week" adhesive Allergy (Mild, Verified 01/12/22 16:21) Blisters aspirin Allergy (Verified 01/12/22 16:21) Difficulty Breathing PT STATES THAT SHE CAN TAKE ASPIRIN 81 MG BUT NOTHING HIGHER IN DOSE. Penicillins Allergy (Verified 01/12/22 16:21) Rash povidone-iodine [From Betadine] Allergy (Verified 01/12/22 16:21) BLISTERES soap [From Betadine] Allergy (Verified 01/12/22 16:21) Blisters Home Medications: Amiodarone HCl 200 mg [Cordarone 200 MG] 200 mg PO DAILY 11/18/18 [History] PANTOPRAZOLE 40 mg Tablet [Protonix 40MG Tablet] 40 mg PO DAILY 11/18/18 [History] Sertraline HCl 50 mg [Zoloft 50 mg Tablet] 50 mg PO DAILY 11/18/18 [History] Donepezil HCl 10 mg [Aricept 10 MG] 1 tab PO DAILY 02/09/20 [History] Aspirin 81 mg PO DAILY 02/19/21 [History] Carvedilol 3.125 mg [Coreg 3.125 MG] 3.125 mg PO BID 02/19/21 [History] Cholecalciferol (Vitamin D3) [Vitamin D3] 1,000 units PO DAILY 02/19/21 [History] Rosuvastatin Calcium 10 mg PO HS 02/19/21 [History] Amlodipine Besylate 2.5 mg PO DAILY 06/15/21 [History] Losartan Potassium 100 mg PO DAILY 06/15/21 [History] Potassium Chloride 20 meq PO BID 06/15/21 [History] Pregabalin 100 mg PO BID 06/15/21 [History] Torsemide 20 mg [Demadex 20 mg] 20 mg PO BID 06/15/21 [History] Insulin Lispro [Humalog] 16 unit SQ DAILY 10/12/21 [History] Memantine HCl 5 mg [Namenda 5 MG] 5 mg PO BID 10/12/21 [History] Apixaban [Eliquis 5 mg Tablet] 5 mg PO BID 11/28/21 [History] Insulin Glargine [Lantus Insulin] 26 unit SQ DAILY 11/28/21 [History] Insulin Lispro [Humalog Oscar Kwikpen] 14 unit SQ DAILY 11/28/21 [History] Insulin Lispro [Humalog] 1 unit SQ QID 11/28/21 [History] Insulin Lispro [Humalog] 20 unit SQ DAILY 11/28/21 [History] Nystatin Powder 15 gm [Nystop Powder 15 gm] 10 gm TP QID PRN 11/28/21 [History] Tramadol HCl 50 mg [Ultram 50 mg] 50 mg PO Q6H PRN PRN 11/28/21 [History] Melatonin/Pyridoxine [Melatonin 5 mg Tablet] 1 tab PO HS 01/12/22 [History] Hx Tetanus, Diphtheria Vaccination/Date Given: No Hx Influenza Vaccination/Date Given: Yes Hx Pneumococcal Vaccination/Date Given: Yes Travel Risk - International Travel Have you traveled outside of the country in past 3 weeks: No - Coronavirus Screening Are you exhibiting any of the following symptoms?: No Close contact with a COVID-19 positive Pt in past 14-21 Days: No - Vaccine Status Have you recieved a Covid-19 vaccination: No - Review of Systems Constitutional: No Symptoms Eyes: No Symptoms Ears, Nose, & Throat: No Symptoms Respiratory: No Symptoms Cardiac: No Symptoms Abdominal/Gastrointestinal: No Symptoms Genitourinary Symptoms: No Symptoms Musculoskeletal: Back Pain (Lower) Skin: No Symptoms Neurological: No Symptoms Psychological: No Symptoms Endocrine: No Symptoms Hematologic/Lymphatic: No Symptoms Immunological/Allergic: No Symptoms All Other Systems: Reviewed and Negative - Past Medical History Pertinent Past Medical History: Yes Neurological History: Peripheral Neuropathy ENT History: No Pertinent History Cardiac History: Angina, Arrhythmia, Congestive Heart Failure, High Cholesterol, Hypertension Respiratory History: COPD, Pneumonia Endocrine Medical History: Diabetes Type II Musculoskeletal History: Arthritis, Fractures GI Medical History: Diverticulitis, Other History: Other Psycho-Social History: No Pertinent History Female Reproductive Disorders: No Pertinent History Other Medical History: Impaired kidney function, HYPOKALEMIA, LEFT ANKLE FRACTURE 05/07/19, C DIFF COVID 09/2021 - Past Surgical History Past Surgical History: Yes Neuro Surgical History: No Pertinent History Cardiac: No Pertinent History Respiratory: No Pertinent History Gastrointestinal: Appendectomy Genitourinary: No Pertinent History Musculoskeletal: Orthopedic Surgery Female Surgical History: Hysterectomy Other Surgical History: Multiple hand surgeries, Left foot surgery approx 8 months ago with surgical sight still not completely healed today. Dr Kay aware. - Social History Smoking Status: Former smoker How long have you smoked: 1 year Exposure to second hand smoke: No Alcohol Use: None Drug Use: none Patient Lives Alone: No Significant Family History: diabetes, hypertension - Nursing Vital Signs Nursing Vital Signs: Initial Vital Signs Temperature 98.2 F 01/12/22 16:21 Pulse Rate 58 L 01/12/22 16:21 Respiratory Rate 20 01/12/22 16:21 Blood Pressure 158/63 01/12/22 16:21 O2 Sat by Pulse Oximetry 92 L 01/12/22 16:21 Pain Scale Pain Intensity 6 - Troy Coma Score Best Eye Response (Justo): (4) open spontaneously Best Verbal Response (Justo): (5) oriented Best Motor Response (Troy): (6) obeys commands Troy Total: 15 - Physical Exam General Appearance: no apparent distress, alert, anxiety, obese Head Injury: no evidence of injury Eye Exam: PERRL/EOMI, eyes nml inspection ENT Exam: airway nml, nml ext.inspection Neck Exam: supple, trachea midline, full range of motion, normal alignment, normal inspection Respiratory/Chest Exam: normal breath sounds, No chest tenderness, No respiratory distress, No ecchymosis, No crepitus Cardiovascular Exam: normal heart sounds, regular rate/rhythm Gastrointestinal Exam: soft, normal bowel sounds, No tenderness Rectal Exam: not done Back Exam: normal inspection, normal range of motion, muscle spasm (Lumbar level), No CVA tenderness, No vertebral tenderness Extremity Exam: normal inspection, normal range of motion, tenderness (Left foot and toes) Neurologic Exam: alert, oriented x 3, cooperative, 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, normal mood/affect Skin Exam: normal color, warm, dry SpO2 Interpretation: normal O2 Delivery: Room Air - Course Nursing assessment & vital signs reviewed: Yes Ordered Tests: Active Orders 24 hr Category Date Time Status Oxygen-ED Only Nasal Cannula 2 lpm Care 01/12/22 17:40 Active ANKLE (3 VIEWS) Stat Exams 01/12/22 16:37 Taken FOOT (MINIMUM 3 VIEWS) Stat Exams 01/12/22 16:37 Taken LOWER LEG Stat Exams 01/12/22 16:37 Taken LUMBAR LIMITED (2 OR 3 VIEWS) Stat Exams 01/12/22 16:37 Taken Medication Summary Discontinued Medications Generic Name Dose Route Start Last Admin Trade Name Boaz PRN Reason Stop Dose Admin Orphenadrine Citrate 100 mg 01/12/22 16:49 01/12/22 16:52 Orphenadrine Citrate 100 Mg Er Tab PO 01/12/22 16:50 100 mg STAT ONE Administration Orphenadrine Citrate Confirm 01/12/22 16:52 Orphenadrine Citrate 100 Mg Er Tab Administered 01/12/22 16:53 Dose 100 mg PO .STK-MED ONE Oxycodone/Acetaminophen 1 tab 01/12/22 16:49 01/12/22 16:55 Oxycodone Hcl/Apap 5 Mg/325 Mg Tablet PO 01/12/22 16:50 1 tab STAT STA Administration Oxycodone/Acetaminophen Confirm 01/12/22 16:52 Oxycodone Hcl/Apap 5 Mg/325 Mg Tablet Administered 01/12/22 16:53 Dose 1 tab .ROUTE .STK-MED ONE - Progress Progress: improved, pain not gone completely Progress Note: 01/12/22 19:20 X-ray of lumbar spine fine shows no acute findings. There is moderate multile quentin degenerative disc and spinal disease. X-ray of left tibia and fibula shows a subtle suspected cortical irregularity of the proximal fibular bone. There is nondisplacement. X-ray of the left ankle there is remote injury to the medial malleolus. There is medial ankle soft tissue swelling. There is healed fractures of the distal fibula but no acute fractures or dislocations. X-ray of left foot shows no definite acute fracture. There is no acute dislocation. There are degenerative changes of the first M TP joint and the interphalangeal joint of the great toe Counseled pt/family regarding: diagnosis, need for follow-up, rad results - Departure Departure Disposition: Home Clinical Impression: Nondisplaced fracture of proximal end of fibula Condition: Stable Critical Care Time: No Referrals: LUIS GALLOWAY MD [Primary Care Provider] - Follow up/PCP as directed Additional Instructions: Ice pack to the proximal fibular area (lateral upper lower leg) 3 times a day for the next 48 hours. Nonweightbearing with the wheelchair until you are cleared by orthopedic clinic to ambulate and increase activity. Follow-up with orthopedic clinic here at [facility] on 01/14/2022. It is a walk-in clinic. You do not need a scheduled appointment to be seen. Arrive at 8 AM. Prescriptions: Oxycodone HCl/Acetaminophen [Percocet 5-325 mg Tablet] 1 each PO Q8H PRN PRN #6 tablet MDD 3 PRN Reason: Moderate To Severe Pain
[2022-01-12] MEDS ORDERED: PERCOCET TABLET 5/325MG PO STA ×2 (16:49→19:29)
[2022-01-12] MEDS ORDERED: Norflex 100 MG Tablet PO ONE ×2 (16:49→16:52)
[2022-01-12] MEDS ORDERED: PERCOCET TABLET 5/325MG ONE ×2 (16:52→19:34)
[2022-01-12 20:42] VITALS: PULSE 54
[2022-01-12 21:05] VITALS: BP 154/52; O2SAT 99
--- NOTE | 2022-01-12 22:56 | XRAY ---
Indication: Pain following fall. Comparison: None 3 view lumbar spine demonstrates 5 lumbar segments with osteopenia, mild/moderate multilevel thoracolumbar degenerative spondylosis, and mild aortoiliac calcifications. No other bony, articular, or soft tissue abnormalities. Comment: Preliminary interpretation made by [facility]. No critical discrepancy.
--- NOTE | 2022-01-12 22:58 | XRAY ---
Indication: Pain following fall. Person: None 2 view left lower leg demonstrates osteopenia and tiny posterior heel spur. Query nondisplaced proximal fibula fracture. No otherbony, articular, or soft tissue masses.. Comment: Preliminary interpretation made by C. No critical discrepancy.
--- NOTE | 2022-01-12 22:59 | XRAY ---
Indication: Pain following fall. Comparison: March 28, 2021 3 nonweightbearing views left foot again demonstrates osteopenia, small cuboid accessory ossicle, medial malleolus tip heterotopic ossification, old distal tibia corner fracture anteriorly, and chronic Achilles tendon calcifications. No new/acute findings. Comment: Preliminary interpretation made by C. No critical discrepancy.
--- NOTE | 2022-01-12 23:02 | XRAY ---
Indication: Pain following fall. Comparison: November 22, 2019 3 view left ankle unchanged again demonstrating osteopenia, old lateral malleolus fracture, tiny medial malleolus tip heterotopic ossification, tiny heel spurs, and chronic Achilles tendon calcifications. No new/acute findings. Comment: Preliminary interpretation made by [facility]. No critical discrepancy.
== END 2022-01-12 21:00 | disposition home or self-care (01) ==
LOC: ED 16:13
DX: S82.832A Other fracture of upper and lower end of left fibula, initial encounter for closed fracture (principal); W18.30XA Fall on same level, unspecified, initial encounter; M54.50 Low back pain, unspecified; M79.662 Pain in left lower leg; M25.572 Pain in left ankle and joints of left foot; I11.0 Hypertensive heart disease with heart failure; E78.5 Hyperlipidemia, unspecified; J44.9 Chronic obstructive pulmonary disease, unspecified; E11.42 Type 2 diabetes mellitus with diabetic polyneuropathy; Z79.01 Long term (current) use of anticoagulants; Z79.4 Long term (current) use of insulin; Z79.891 Long term (current) use of opiate analgesic; Z79.899 Other long term (current) drug therapy; Z28.310 Unvaccinated for COVID-19; Z86.16 Personal history of COVID-19
CPT/HCPCS: 51702; 72100; 73590; 73610; 73630; 99283; A9270-GY

== ENCOUNTER 2023-01-09 19:43 | Observation (INO) | payer MEDICARE, BC ==
[2023-01-09] MEDS ORDERED: TYLENOL 325 MG PO ONE (20:18)
[2023-01-09] MEDS ORDERED: Zofran 4 MG/2 ML VIAL IV ONE (20:18)
[2023-01-09] MEDS ORDERED: Sodium Chloride 0.9% 500 ML 500 ML IV ONE ×2 (20:20→20:36)
[2023-01-09] MEDS ORDERED: Zofran 4 MG/2 ML VIAL ONE (20:36)
[2023-01-09] MEDS ORDERED: TYLENOL 325 MG ONE (20:36)
[2023-01-09 20:45] LABS: Absolute Neutrophil Ct (ANC) 6.48 x10^3/uL (1.4-6.9); BASOPHIL % 0.4 % (0.0-0.4); Basophil (Absolute #) 0.04 x10^3/uL (0-0.4); Eosinophil % 0.1 % (0.00-5.0); Eosinophil (Absolute #) 0.01 x10^3/uL (0-0.5); Hematocrit 46.4 % (35-47); Hemoglobin 15.8 g/dL (12.0-16.0); IMMATURE GRAN # 0.03 x10^3u/L (0.00-0.03); IMMATURE GRAN % 0.3 % (0.00-0.4); Lymphocyte (Absolute #) 1.81 x10^3/uL (1.0-4.6); Lymphocytes % 20.4 % (24.0-44.0); Mean Cell Volume 89.6 fL (78-100); Mean Corpuscular Hemoglobin 30.5 pg (26-32); Mean Corpuscular Hgb Concent. 34.1 g/dL (32-36); Mean Platelet Volume 11.1 fL (7.5-11.0); Monocyte (Absolute #) 0.52 x10^3/uL (0.0-1.3); Monocytes % 5.8 % (0.0-12.0); Platelet Count 222 x10^3/uL (150-450); Red Blood Count 5.18 x10^6/uL (4.1-5.4); Red Cell Distribution Width 12.1 % (11.5-14.0); White Blood Count 8.9 x10^3/uL (4.0-10.5)
[2023-01-09 21:00] LABS: ALBUMIN 3.8 g/dL (3.5-5.0); ALKALINE PHOSPHATASE 116 U/L (38-126); ANION GAP 14.4 MEQ/L (5-15); BLOOD UREA NITROGEN 9 mg/dL (7-17); CHLORIDE 99 mmol/L (98-107); Calcium 9.3 mg/dL (8.4-10.2); Carbon Dioxide 24 mmol/L (22-30); Creatinine 1 0.47 mg/dL (0.52-1.04); EST GLOMERULAR FILTRATION RATE > 60.0 ML/MIN; Glucose 471 mg/dL (74-106); LIPASE 64 U/L (23-300); Potassium 4.3 mmol/L (3.5-5.1); SGOT/AST 16 U/L (14-36); SGPT/ALT 14 U/L (0-35); SODIUM 133 mmol/L (137-145); Total Protein 6.2 g/dL (6.3-8.2)
[2023-01-09 21:16] LABS: PROCALCITONIN 0.064 ng/mL (0.030-0.080)
[2023-01-09 22:07] LABS: ADD URINE CULTURE? ORDERED SEPARATELY (NO); Appearance CLEAR (CLEAR); Bacteria None Seen /HPF (None Seen); Bilirubin NEGATIVE (NEGATIVE); Epithelial Cells None Seen /HPF (None Seen); Glucose >=1000 mg/dL (NEGATIVE); Hyaline Casts NONE SEEN /LPF (0-2); RBC 0-2 /HPF (0-5); WBC 0-2 /HPF (0-5)
[2023-01-09 22:08] LABS: Ketones MODERATE-40 (NEGATIVE); Nitrite NEGATIVE (NEGATIVE); Ph 6.5 (5-6); Protein,Urine Dip 100 (Negative); RBC NEGATIVE Ery/ul (0-5); Urobilinogen 0.2 mg/dL (0-1)
[2023-01-09] MEDS ORDERED: HUMULIN R SQ ONE (23:26)
--- NOTE | 2023-01-09 23:27 | ERPHSYRPT ---
- History of Present Illness Time Seen by Provider: 01/09/23 19:52 Historian: patient, EMS Exam Limitations: no limitations Patient Subjective Stated Complaint: nausea, headache, and overall "not feeling well." since last per patient Triage Nursing Assessment: pt presents to ED via SCAT 4, pt alert and oriented x3, skin pwd, pt c/o nausea with no vomiting, headache, and generalized not feeling well since last night, pt has not been taking her home prescribed medications for the past year, pt hx of copd, dm type 2, htn, afib. pt wears 2 L NC at all times. Physician History: 72 years old female with multiple medical problems including diabetes mellitus, hypertension, hyperlipidemia, atrial fibrillation, congestive heart failure, chronic respiratory failure secondary to COPD, noncompliant with medication and not taking anything for almost 1 year is brought in the ER with chief complaint of generalized weakness fatigue and tiredness. Patient reports feeling dizzy lightheaded, nausea without vomiting and some abdominal pain. Also reports having minimal productive cough which is not any worse than usual. Per family patient was not acting herself earlier, was acting confused. She denies any focal numbness tingling or weakness. She has minimal mobility at her baseline. No fever or chills reported. Allergies/Adverse Reactions: morphine Allergy (Severe, Verified 01/09/23 19:51) anaphylaxis pt went into respiratory failure and acute renal failure the last time she had morphine. "I was in a coma for a week" adhesive Allergy (Mild, Verified 01/09/23 19:51) Blisters aspirin Allergy (Verified 01/09/23 19:51) Difficulty Breathing PT STATES THAT SHE CAN TAKE ASPIRIN 81 MG BUT NOTHING HIGHER IN DOSE. Penicillins Allergy (Verified 01/09/23 19:51) Rash povidone-iodine [From Betadine] Allergy (Verified 01/09/23 19:51) BLISTERES soap [From Betadine] Allergy (Verified 01/09/23 19:51) Blisters Home Medications: No Reportable Medications [No Reported Medications] 01/09/23 [History] Hx Tetanus, Diphtheria Vaccination/Date Given: Yes Hx Influenza Vaccination/Date Given: Yes Hx Pneumococcal Vaccination/Date Given: Yes Immunizations Up to Date: Yes Travel Risk - International Travel Have you traveled outside of the country in past 3 weeks: No - Coronavirus Screening Are you exhibiting any of the following symptoms?: No Close contact with a COVID-19 positive Pt in past 14-21 Days: No - Vaccine Status Have you recieved a Covid-19 vaccination: Yes Can Capper: Unknown - Vaccination Dates Dates if Unknown: unk - Review of Systems Constitutional: Fatigue, Weakness Eyes: No Symptoms Ears, Nose, & Throat: No Symptoms Respiratory: Cough Cardiac: No Symptoms Abdominal/Gastrointestinal: Abdominal Pain, Nausea Genitourinary Symptoms: No Symptoms Musculoskeletal: Arthralgias Skin: No Symptoms Neurological: Dizziness, Headache Hematologic/Lymphatic: No Symptoms Immunological/Allergic: No Symptoms - Past Medical History Pertinent Past Medical History: Yes Neurological History: Peripheral Neuropathy ENT History: No Pertinent History Cardiac History: Angina, Arrhythmia, Congestive Heart Failure, High Cholesterol, Hypertension Respiratory History: COPD, Pneumonia Endocrine Medical History: Diabetes Type II Musculoskeletal History: Arthritis, Fractures GI Medical History: Diverticulitis, Other History: Other Psycho-Social History: No Pertinent History Female Reproductive Disorders: No Pertinent History Other Medical History: Impaired kidney function, HYPOKALEMIA, LEFT ANKLE FRACTURE 05/07/19, C DIFF COVID 09/2021 - Past Surgical History Past Surgical History: Yes Neuro Surgical History: No Pertinent History Cardiac: No Pertinent History Respiratory: No Pertinent History Gastrointestinal: Appendectomy Genitourinary: No Pertinent History Musculoskeletal: Orthopedic Surgery Female Surgical History: Hysterectomy Other Surgical History: Multiple hand surgeries, Left foot surgery approx 8 months ago with surgical sight still not completely healed today. Dr Rahul molina. - Social History Smoking Status: Former smoker How long have you smoked: 1 year Exposure to second hand smoke: Yes Alcohol Use: None Drug Use: none Patient Lives Alone: No Significant Family History: diabetes, hypertension - Nursing Vital Signs Nursing Vital Signs: Initial Vital Signs Temperature 98.4 F 01/09/23 19:51 Pulse Rate 86 01/09/23 19:51 Respiratory Rate 18 01/09/23 19:51 Blood Pressure 117/77 01/09/23 19:51 O2 Sat by Pulse Oximetry 97 01/09/23 19:51 Pain Scale Pain Intensity 7 - Physical Exam General Appearance: no apparent distress, alert Eye Exam: PERRL/EOMI Ears, Nose, Throat Exam: normal ENT inspection Neck Exam: normal inspection, non-tender, supple, full range of motion Respiratory Exam: normal breath sounds, lungs clear Cardiovascular Exam: regular rate/rhythm, normal heart sounds Gastrointestinal/Abdomen Exam: soft, normal bowel sounds, tenderness (Mild generalized) Extremity Exam: pelvis stable Neurologic Exam: alert, oriented x 3, cooperative, 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 tested, sensation nml, No normal mood/affect, No motor deficits Skin Exam: normal color SpO2 Interpretation: O2 applied SpO2: 94 O2 Delivery: Nasal Cannula (2 L) Ordered Tests: Active Orders 24 hr Category Date Time Status Catheter-Dunnellon Jones STAT Care 01/09/23 21:00 Active EKG-ER Only STAT Care 01/09/23 20:18 Active IV Insertion STAT Care 01/09/23 20:18 Active ABDOMEN AND PELVIS W/0 CONTRAS [CT] Stat Exams 01/09/23 20:50 Taken CHEST 1 VIEW (PORTABLE) Stat Exams 01/09/23 21:05 Taken HEAD WITHOUT CONTRAST [CT] Stat Exams 01/09/23 20:46 Taken BLOOD CULTURE Stat Lab 01/09/23 20:19 Received BNPII [NT PRO BNPII] Stat Lab 01/09/23 20:42 Completed CBC W DIFF Stat Lab 01/09/23 20:42 Completed CMP Stat Lab 01/09/23 20:42 Completed CULTURE,URINE Stat Lab 01/09/23 22:06 Ordered LIPASE Stat Lab 01/09/23 20:42 Completed Lactic Acid Stat Lab 01/09/23 20:35 Completed MAGNESIUM Stat Lab 01/09/23 20:42 Completed PROCALCITONIN Stat Lab 01/09/23 20:42 Completed TROPONIN Q4H Lab 01/09/23 20:42 Completed TROPONIN Q4H Lab 01/10/23 00:30 Ordered TROPONIN Q4H Lab 01/10/23 04:30 Ordered Medication Summary Discontinued Medications Generic Name Dose Route Start Last Admin Trade Name Freq PRN Reason Stop Dose Admin Acetaminophen 975 mg 01/09/23 20:18 01/09/23 20:45 Acetaminophen 325 Mg Tablet PO 01/09/23 20:19 975 mg STAT ONE Administration Acetaminophen Confirm 01/09/23 20:36 Acetaminophen 325 Mg Tablet Administered 01/09/23 20:37 Dose 975 mg .ROUTE .STK-MED ONE Sodium Chloride 500 mls @ 500 mls/hr 01/09/23 20:20 01/09/23 20:45 Sodium Chloride 0.9% 500 Ml IV 01/09/23 21:19 500 mls/hr .Q1H ONE Administration Sodium Chloride Confirm 01/09/23 20:36 Sodium Chloride 0.9% 500 Ml Administered 01/09/23 20:37 Dose 500 mls @ ud IV .STK-MED ONE Ondansetron HCl 4 mg 01/09/23 20:18 01/09/23 20:45 Ondansetron Hcl 4 Mg/2 Ml Vial IV 01/09/23 20:19 4 mg STAT ONE Administration Ondansetron HCl Confirm 01/09/23 20:36 Ondansetron Hcl 4 Mg/2 Ml Vial Administered 01/09/23 20:37 Dose 4 mg .ROUTE .STK-MED ONE Lab/Rad Data: Laboratory Result Diagrams 01/09/23 20:42 01/09/23 20:42 Laboratory Results 01/09/23 01/09/23 01/09/23 Range/Units 21:22 20:42 20:42 WBC (4.0-10.5) x10^3/uL RBC (4.1-5.4) x10^6/uL Hgb (12.0-16.0) g/dL Hct (35-47) % MCV (78-100) fL MCH (26-32) pg MCHC (32-36) g/dL RDW (11.5-14.0) % Plt Count (150-450) x10^3/uL MPV (7.5-11.0) fL Gran % (36.0-66.0) % Immature Gran % (Auto) (0.00-0.4) % Nucleat RBC Rel Count (0.00-0.1) % Eos # (Auto) (0-0.5) x10^3/uL Immature Gran # (Auto) (0.00-0.03) x10^3u/L Absolute Lymphs (auto) (1.0-4.6) x10^3/uL Absolute Monos (auto) (0.0-1.3) x10^3/uL Absolute Nucleated RBC (0.00-0.01) x10^3u/L Lymphocytes % (24.0-44.0) % Monocytes % (0.0-12.0) % Eosinophils % (0.00-5.0) % Basophils % (0.0-0.4) % Absolute Granulocytes (1.4-6.9) x10^3/uL Basophils # (0-0.4) x10^3/uL Sodium (137-145) mmol/L Potassium (3.5-5.1) mmol/L Chloride (98-107) mmol/L Carbon Dioxide (22-30) mmol/L Anion Gap (5-15) MEQ/L BUN (7-17) mg/dL Creatinine (0.52-1.04) mg/dL Estimated GFR ML/MIN Glucose (74-106) mg/dL Lactic Acid (0.4-2.0) Calcium (8.4-10.2) mg/dL Magnesium (1.6-2.3) mg/dL Total Bilirubin (0.2-1.3) mg/dL AST (14-36) U/L ALT (0-35) U/L Alkaline Phosphatase (38-126) U/L Troponin I < 0.012 (0.000-0.034) ng/mL NT-Pro-B Natriuret Pep 613 (<300) pg/mL Serum Total Protein (6.3-8.2) g/dL Albumin (3.5-5.0) g/dL Lipase (23-300) U/L Procalcitonin 0.064 (0.030-0.080) ng/mL Urine Color YELLOW (YELLOW) Urine Appearance CLEAR (CLEAR) Urine pH 6.5 (5-6) Ur Specific [place] 1.010 (1.005-1.025) POC Urine Protein Conf 100 A (Negative) Urine Ketones MODERATE-40 A (NEGATIVE) Urine Nitrite NEGATIVE (NEGATIVE) Urine Bilirubin NEGATIVE (NEGATIVE) Urine Urobilinogen 0.2 (0-1) mg/dL Urine Leukocytes NEGATIVE (NEGATIVE) U Hyaline Cast (Auto) NONE SEEN (0-2) /LPF Urine RBC NEGATIVE (0-5) Kervin/ul Urine Microscopic RBC 0-2 (0-5) /HPF Urine Microscopic WBC 0-2 (0-5) /HPF Ur Epithelial Cells None Seen (None Seen) /HPF Urine Bacteria None Seen (None Seen) /HPF Urine Culture Reflexed ORDERED SEPARATELY (NO) Urine Glucose >=1000 A (NEGATIVE) mg/dL 01/09/23 01/09/23 01/09/23 Range/Units 20:42 20:42 20:35 WBC 8.9 (4.0-10.5) x10^3/uL RBC 5.18 (4.1-5.4) x10^6/uL Hgb 15.8 (12.0-16.0) g/dL Hct 46.4 (35-47) % MCV 89.6 (78-100) fL MCH 30.5 (26-32) pg MCHC 34.1 (32-36) g/dL RDW 12.1 (11.5-14.0) % Plt Count 222 (150-450) x10^3/uL MPV 11.1 H (7.5-11.0) fL Gran % 73.0 H (36.0-66.0) % Immature Gran % (Auto) 0.3 (0.00-0.4) % Nucleat RBC Rel Count 0.0 (0.00-0.1) % Eos # (Auto) 0.01 (0-0.5) x10^3/uL Immature Gran # (Auto) 0.03 (0.00-0.03) x10^3u/L Absolute Lymphs (auto) 1.81 (1.0-4.6) x10^3/uL Absolute Monos (auto) 0.52 (0.0-1.3) x10^3/uL Absolute Nucleated RBC 0.00 (0.00-0.01) x10^3u/L Lymphocytes % 20.4 L (24.0-44.0) % Monocytes % 5.8 (0.0-12.0) % Eosinophils % 0.1 (0.00-5.0) % Basophils % 0.4 (0.0-0.4) % Absolute Granulocytes 6.48 (1.4-6.9) x10^3/uL Basophils # 0.04 (0-0.4) x10^3/uL Sodium 133 L (137-145) mmol/L Potassium 4.3 (3.5-5.1) mmol/L Chloride 99 (98-107) mmol/L Carbon Dioxide 24 (22-30) mmol/L Anion Gap 14.4 (5-15) MEQ/L BUN 9 (7-17) mg/dL Creatinine 0.47 L (0.52-1.04) mg/dL Estimated GFR > 60.0 ML/MIN Glucose 471 H (74-106) mg/dL Lactic Acid 1.6 (0.4-2.0) Calcium 9.3 (8.4-10.2) mg/dL Magnesium 2.0 (1.6-2.3) mg/dL Total Bilirubin 0.60 (0.2-1.3) mg/dL AST 16 (14-36) U/L ALT 14 (0-35) U/L Alkaline Phosphatase 116 (38-126) U/L Troponin I (0.000-0.034) ng/mL NT-Pro-B Natriuret Pep (<300) pg/mL Serum Total Protein 6.2 L (6.3-8.2) g/dL Albumin 3.8 (3.5-5.0) g/dL Lipase 64 (23-300) U/L Procalcitonin (0.030-0.080) ng/mL Urine Color (YELLOW) Urine Appearance (CLEAR) Urine pH (5-6) Ur Specific [place] (1.005-1.025) POC Urine Protein Conf (Negative) Urine Ketones (NEGATIVE) Urine Nitrite (NEGATIVE) Urine Bilirubin (NEGATIVE) Urine Urobilinogen (0-1) mg/dL Urine Leukocytes (NEGATIVE) U Hyaline Cast (Auto) (0-2) /LPF Urine RBC (0-5) Kervin/ul Urine Microscopic RBC (0-5) /HPF Urine Microscopic WBC (0-5) /HPF Ur Epithelial Cells (None Seen) /HPF Urine Bacteria (None Seen) /HPF Urine Culture Reflexed (NO) Urine Glucose (NEGATIVE) mg/dL - Progress Progress: improved, re-examined Progress Note: 01/09/23 23:25 72 years old with multiple medical problems including hypertension, hyperlipidemia, diabetes mellitus, atrial fibrillation not taking any medications for almost 1 year is evaluated in the ER with generalized weakness fatigue tiredness and not acting herself earlier today. Patient denies any chest pain or difficulty breathing. She is on 2 L with saturation around 94%. Lungs fairly clear to auscultation. Chest x-ray negative for any acute cardiopulmonary findings. EKG negative for any acute ischemic changes. Has given fluid bolus, work-up showed normal white count, fairly unremarkable chemistries except for hyperglycemia with blood glucose in 470s. Given SQ insulin. Patient is not in DKA or HHS. I have obtained CT head and abdomen pelvis without contrast which are negative for any acute intracranial findings and no acute abdominal pelvic findings except for distended bladder for which she has in and out cath done. No UTI but does have some ketones in urine. Patient is not in any distress on reevaluation. I have discussed with patient about medication compliance and she wants to go back on medication. Patient has not been taking insulin for quite some time. Patient cannot take care of herself and does not have enough help at home. We will continue with gentle hydration and discussed with hospitalist Dr. Pugh, reviewed history, work-up and patient is being admitted. Discussed with Dr.: Other (Dr. Pugh) Will see patient in: hospital (observation) Counseled pt/family regarding: lab results, diagnosis, rad results Medical Desision Making - Independent Historian Additional History obtained from: Child, Sales Hunter/EMT - Diagnostic Testing Diagnostic test were ordered, analyzed, and reviewed by me: Yes Radiological Interpretation: Interpreted by me, Reviewed by me, Teleradiologist Report - Risk of complications The pt has a high risk of morbidity or mortality based on: Decision regarding hospitilization or escalation of hosp level of care - Departure Departure Disposition: Observation Clinical Impression: Generalized weakness, Hyperglycemia, Dehydration Condition: Stable Critical Care Time: No Referrals: LUIS GALLOWAY MD [Primary Care Provider] - Follow up/PCP as directed
[2023-01-09] MEDS ORDERED: HUMULIN R ONE (23:41)
[2023-01-09] MEDS ORDERED: Sodium Chloride 0.9% 1000 ML 1,000 ML IV SCH (23:45)
[2023-01-10] MEDS ORDERED: Docusate Sodium 100 MG PO PRN (01:26)
[2023-01-10] MEDS ORDERED: TYLENOL 325 MG PO PRN (01:26)
[2023-01-10] MEDS ORDERED: Zofran 4 MG/2 ML VIAL IV PRN (01:26)
--- NOTE | 2023-01-10 01:40 | PCM.HP ---
History of Present Illness - Chief Complaint Chief Complaint: hypergycemia, dehydration Date: 01/09/23 History of Present Illness: is a 72 year old female with a history of diabetes mellitus, hypertension, hyperlipidemia, atrial fibrillation, congestive heart failure, chronic respiratory failure secondary to COPD (on 2L NC), noncompliant with medication and not taking any medicationsfor 10 months brought to the hospital with chief complaints of generalized weakness, fatigue, dizziness, nausea without vomiting, generalized abdominal pain, and minimally productive chronic cough (at baseline). The patient says that she chose to stope her medications 10 months ago because she "felt like it" but not due to any particular reason such as side effects or cost. There was a report of some confusion by family members to the ED team. She acknowledges generally poor mobility. She denies chest pain, fevers, chills, hematemesis, hemoptysis, or leg edema. At the time of my interview with the patient, she is not feeling any different but would not focus on a single symptom among the constellation of symptoms she reported in the ED. - Review of Systems Constitutional: Fatigue Eyes: No Symptoms Ears, Nose, & Throat: No Symptoms Respiratory: Cough Cardiac: No Symptoms Abdominal/Gastrointestinal: Abdominal Pain, Nausea Genitourinary Symptoms: No Symptoms Musculoskeletal: No Symptoms Skin: No Symptoms Neurological: Dizziness Psychological: No Symptoms Endocrine: No Symptoms Hematologic/Lymphatic: No Symptoms Immunological/Allergic: No Symptoms All Other Systems: Reviewed and Negative Medications & Allergies Home Medications: Home Medication List No Reportable Medications [No Reported Medications] 01/09/23 [History Confirmed 01/09/23] Allergies/Adverse Reactions: Allergies Allergy/AdvReac Type Severity Reaction Status Date / Time morphine Allergy Severe anaphylaxis Verified 01/09/23 19:51 adhesive Allergy Mild Blisters Verified 01/09/23 19:51 aspirin Allergy Difficulty Verified 01/09/23 19:51 Breathing Penicillins Allergy Rash Verified 01/09/23 19:51 povidone-iodine Allergy BLISTERES Verified 01/09/23 19:51 [From Betadine] soap [From Betadine] Allergy Blisters Verified 01/09/23 19:51 - Past Medical History Past Medical History: Yes Neurological History: Peripheral Neuropathy ENT History: No Pertinent History Cardiac History: Angina, Arrhythmia, Congestive Heart Failure, High Cholesterol, Hypertension Respiratory History: COPD, Pneumonia Endocrine Medical History: Diabetes Type II Musculoskelatal History: Arthritis, Fractures GI Medical History: Diverticulitis, Other History: Other Pyscho-Social History: No Pertinent History Reproductive Disorders: No Pertinent History Comment: Impaired kidney function, HYPOKALEMIA, LEFT ANKLE FRACTURE 05/07/19, C DIFF COVID 09/2021 - Female History Are you now?: No - Past Surgical History Past Surgical History: Yes Neuro Surgical History: No Pertinent History Cardiac History: No Pertinent History Respiratory Surgery: No Pertinent History GI Surgical History: Appendectomy Genitourinary Surgical Hx: No Pertinent History Musculskeletal Surgical Hx: Orthopedic Surgery Female Surgical History: Hysterectomy Other Surgical History: Multiple hand surgeries, Left foot surgery approx 8 months ago with surgical sight still not completely healed today. Dr Rahul molina. - Social History Smoking Status: Former smoker How long have you smoked: 1 year Exposure to second hand smoke: Yes Alcohol: None Drug Use: none Significant Family History: diabetes, hypertension - Physical Exam Vital Signs: Vital Signs - 24 hr Temp Pulse Resp BP BP Pulse Ox 01/10/23 00:18 100.3 F 84 18 142/65 94 L 01/09/23 23:37 94 L 01/09/23 23:01 82 18 94 L 01/09/23 22:01 86 18 124/84 96 01/09/23 20:00 96 H 18 125/61 97 01/09/23 19:51 98.4 F 86 18 117/77 97 General Appearance: no apparent distress, alert Neurologic Exam: alert, oriented x 3, cooperative, graphics editor II-XII nml as tested, normal mood/affect, nml cerebellar function Eye Exam: PERRL/EOMI, eyes nml inspection Ears, Nose, Throat Exam: normal ENT inspection Neck Exam: normal inspection, non-tender, supple, full range of motion Respiratory Exam: normal breath sounds, lungs clear Cardiovascular Exam: regular rate/rhythm, normal heart sounds Gastrointestinal/Abdomen Exam: soft, normal bowel sounds Back Exam: normal range of motion Extremity Exam: normal inspection, normal range of motion Skin Exam: normal color Results - Labs Lab/Micro Results: Lab Results-Last 24 Hours 01/09/23 01/09/23 01/09/23 Range/Units 20:35 20:42 20:42 WBC 8.9 (4.0-10.5) x10^3/uL RBC 5.18 (4.1-5.4) x10^6/uL Hgb 15.8 (12.0-16.0) g/dL Hct 46.4 (35-47) % MCV 89.6 (78-100) fL MCH 30.5 (26-32) pg MCHC 34.1 (32-36) g/dL RDW 12.1 (11.5-14.0) % Plt Count 222 (150-450) x10^3/uL MPV 11.1 H (7.5-11.0) fL Gran % 73.0 H (36.0-66.0) % Immature Gran % (Auto) 0.3 (0.00-0.4) % Nucleat RBC Rel Count 0.0 (0.00-0.1) % Eos # (Auto) 0.01 (0-0.5) x10^3/uL Immature Gran # (Auto) 0.03 (0.00-0.03) x10^3u/L Absolute Lymphs (auto) 1.81 (1.0-4.6) x10^3/uL Absolute Monos (auto) 0.52 (0.0-1.3) x10^3/uL Absolute Nucleated RBC 0.00 (0.00-0.01) x10^3u/L Lymphocytes % 20.4 L (24.0-44.0) % Monocytes % 5.8 (0.0-12.0) % Eosinophils % 0.1 (0.00-5.0) % Basophils % 0.4 (0.0-0.4) % Absolute Granulocytes 6.48 (1.4-6.9) x10^3/uL Basophils # 0.04 (0-0.4) x10^3/uL Sodium 133 L (137-145) mmol/L Potassium 4.3 (3.5-5.1) mmol/L Chloride 99 (98-107) mmol/L Carbon Dioxide 24 (22-30) mmol/L Anion Gap 14.4 (5-15) MEQ/L BUN 9 (7-17) mg/dL Creatinine 0.47 L (0.52-1.04) mg/dL Estimated GFR > 60.0 ML/MIN Glucose 471 H (74-106) mg/dL Lactic Acid 1.6 (0.4-2.0) Calcium 9.3 (8.4-10.2) mg/dL Magnesium 2.0 (1.6-2.3) mg/dL Total Bilirubin 0.60 (0.2-1.3) mg/dL AST 16 (14-36) U/L ALT 14 (0-35) U/L Alkaline Phosphatase 116 (38-126) U/L Troponin I (0.000-0.034) ng/mL NT-Pro-B Natriuret Pep (<300) pg/mL Serum Total Protein 6.2 L (6.3-8.2) g/dL Albumin 3.8 (3.5-5.0) g/dL Lipase 64 (23-300) U/L Procalcitonin (0.030-0.080) ng/mL Urine Color (YELLOW) Urine Appearance (CLEAR) Urine pH (5-6) Ur Specific [place] (1.005-1.025) POC Urine Protein Conf (Negative) Urine Ketones (NEGATIVE) Urine Nitrite (NEGATIVE) Urine Bilirubin (NEGATIVE) Urine Urobilinogen (0-1) mg/dL Urine Leukocytes (NEGATIVE) U Hyaline Cast (Auto) (0-2) /LPF Urine RBC (0-5) Kervin/ul Urine Microscopic RBC (0-5) /HPF Urine Microscopic WBC (0-5) /HPF Ur Epithelial Cells (None Seen) /HPF Urine Bacteria (None Seen) /HPF Urine Culture Reflexed (NO) Urine Glucose (NEGATIVE) mg/dL 01/09/23 01/09/23 01/09/23 Range/Units 20:42 20:42 21:22 WBC (4.0-10.5) x10^3/uL RBC (4.1-5.4) x10^6/uL Hgb (12.0-16.0) g/dL Hct (35-47) % MCV (78-100) fL MCH (26-32) pg MCHC (32-36) g/dL RDW (11.5-14.0) % Plt Count (150-450) x10^3/uL MPV (7.5-11.0) fL Gran % (36.0-66.0) % Immature Gran % (Auto) (0.00-0.4) % Nucleat RBC Rel Count (0.00-0.1) % Eos # (Auto) (0-0.5) x10^3/uL Immature Gran # (Auto) (0.00-0.03) x10^3u/L Absolute Lymphs (auto) (1.0-4.6) x10^3/uL Absolute Monos (auto) (0.0-1.3) x10^3/uL Absolute Nucleated RBC (0.00-0.01) x10^3u/L Lymphocytes % (24.0-44.0) % Monocytes % (0.0-12.0) % Eosinophils % (0.00-5.0) % Basophils % (0.0-0.4) % Absolute Granulocytes (1.4-6.9) x10^3/uL Basophils # (0-0.4) x10^3/uL Sodium (137-145) mmol/L Potassium (3.5-5.1) mmol/L Chloride (98-107) mmol/L Carbon Dioxide (22-30) mmol/L Anion Gap (5-15) MEQ/L BUN (7-17) mg/dL Creatinine (0.52-1.04) mg/dL Estimated GFR ML/MIN Glucose (74-106) mg/dL Lactic Acid (0.4-2.0) Calcium (8.4-10.2) mg/dL Magnesium (1.6-2.3) mg/dL Total Bilirubin (0.2-1.3) mg/dL AST (14-36) U/L ALT (0-35) U/L Alkaline Phosphatase (38-126) U/L Troponin I < 0.012 (0.000-0.034) ng/mL NT-Pro-B Natriuret Pep 613 (<300) pg/mL Serum Total Protein (6.3-8.2) g/dL Albumin (3.5-5.0) g/dL Lipase (23-300) U/L Procalcitonin 0.064 (0.030-0.080) ng/mL Urine Color YELLOW (YELLOW) Urine Appearance CLEAR (CLEAR) Urine pH 6.5 (5-6) Ur Specific [place] 1.010 (1.005-1.025) POC Urine Protein Conf 100 A (Negative) Urine Ketones MODERATE-40 A (NEGATIVE) Urine Nitrite NEGATIVE (NEGATIVE) Urine Bilirubin NEGATIVE (NEGATIVE) Urine Urobilinogen 0.2 (0-1) mg/dL Urine Leukocytes NEGATIVE (NEGATIVE) U Hyaline Cast (Auto) NONE SEEN (0-2) /LPF Urine RBC NEGATIVE (0-5) Kervin/ul Urine Microscopic RBC 0-2 (0-5) /HPF Urine Microscopic WBC 0-2 (0-5) /HPF Ur Epithelial Cells None Seen (None Seen) /HPF Urine Bacteria None Seen (None Seen) /HPF Urine Culture Reflexed ORDERED SEPARATELY (NO) Urine Glucose >=1000 A (NEGATIVE) mg/dL - Radiology Impressions Radiology Exams & Impressions: Radiology Procedures Category Date Time Status ABDOMEN AND PELVIS W/0 CONTRAS [CT] Stat Exams 01/09/23 20:50 Taken CHEST 1 VIEW (PORTABLE) Stat Exams 01/09/23 21:05 Taken HEAD WITHOUT CONTRAST [CT] Stat Exams 01/09/23 20:46 Taken - Other Procedures and Tests Respiratory Therapy 01/09/23 23:53 Respiratory Therapy Consult ONCE 01/10/23 01:26 Oxygen Nasal Cannula 2 lpm Assessment/Plan (1) Dehydration Current Visit: Yes Status: Acute Assessment & Plan: Has known CHF. BNP elevated but no edema on exam. Will monitor fluid status. Received IV fluids in ED. Code(s): E86.0 - DEHYDRATION (2) Hyperglycemia Current Visit: Yes Status: Acute Assessment & Plan: Will need to verify prior regimen in AM. Placed on ISS and will order A1c. Diabetic diet. May need diabetes reeducation. Code(s): R73.9 - HYPERGLYCEMIA, UNSPECIFIED (3) Generalized weakness Current Visit: Yes Status: Acute Assessment & Plan: PT eval. Family may not be able to care for patient. CM eval to assess needs. Code(s): R53.1 - WEAKNESS (4) Nausea & vomiting Current Visit: No Status: Acute Qualifiers: Vomiting type: unspecified Qualified Code(s): R11.2 - Nausea with vomiting, unspecified Assessment & Plan: Exam unremarkable and CT scan does not demonstrate acute process. Zofran prn. Pepcid for prophylaxis. Code(s): R11.2 - NAUSEA WITH VOMITING, UNSPECIFIED Telemedicine Encounter - Telemedicine Encounter Telemedicine Encounter: The entirety of this encounter was performed via Telemedicine"
[2023-01-10 05:10] LABS: ANION GAP 11.2 MEQ/L (5-15); Absolute Neutrophil Ct (ANC) 5.61 x10^3/uL (1.4-6.9); BASOPHIL % 0.6 % (0.0-0.4); BLOOD UREA NITROGEN 9 mg/dL (7-17); Basophil (Absolute #) 0.06 x10^3/uL (0-0.4); CHLORIDE 101 mmol/L (98-107); Calcium 8.5 mg/dL (8.4-10.2); Carbon Dioxide 27 mmol/L (22-30); Creatinine 1 0.62 mg/dL (0.52-1.04); EST GLOMERULAR FILTRATION RATE > 60.0 ML/MIN; Eosinophil % 0.2 % (0.00-5.0); Eosinophil (Absolute #) 0.02 x10^3/uL (0-0.5); Glucose 290 mg/dL (74-106); Hematocrit 41.5 % (35-47); Hemoglobin 14.2 g/dL (12.0-16.0); IMMATURE GRAN # 0.03 x10^3u/L (0.00-0.03); IMMATURE GRAN % 0.3 % (0.00-0.4); Lymphocyte (Absolute #) 3.35 x10^3/uL (1.0-4.6); Lymphocytes % 34.1 % (24.0-44.0); Mean Corpuscular Hemoglobin 30.8 pg (26-32); Mean Corpuscular Hgb Concent. 34.2 g/dL (32-36); Mean Platelet Volume 10.8 fL (7.5-11.0); Monocyte (Absolute #) 0.75 x10^3/uL (0.0-1.3); Monocytes % 7.6 % (0.0-12.0); Neutrophil % 57.2 % (36.0-66.0); Platelet Count 232 x10^3/uL (150-450); Potassium 3.6 mmol/L (3.5-5.1); Red Blood Count 4.61 x10^6/uL (4.1-5.4); Red Cell Distribution Width 12.7 % (11.5-14.0); SODIUM 136 mmol/L (137-145); White Blood Count 9.8 x10^3/uL (4.0-10.5)
[2023-01-10 06:58] VITALS: RESP 18
[2023-01-10] MEDS: HUMALOG SQ PRN ×2 (08:01→12:15)
--- NOTE | 2023-01-10 08:37 | XRAY ---
Indication: Headache, dizziness, confusion, and general weakness. Multiple contiguous axial images obtained through the head without contrast. Comparison: November 03, 2015 Age-appropriate global atrophy. Stable remote lacunar infarct left basal ganglia. No acute intracranial hemorrhage, abnormal extra-axial fluid collection, or mass effect. Fourth ventricle is midline without hydrocephalus. Reid-white matter differentiation preserved. Bony calvarium intact. Paranasal sinuses and mastoid air cells are clear. Impression: Atrophy within normal limits for patient's age. Remote lacunar infarct left basal ganglia. No acute intracranial abnormalities.
--- NOTE | 2023-01-10 08:40 | XRAY ---
Indication: Abdomen pain, vomiting, nausea, and weakness. Multiple contiguous axial images obtained through abdomen and pelvis without contrast. Comparison: October 12, 2021 Lung bases again demonstrate scattered subsegmental atelectasis/scarring. No infiltrate or effusion. Heart not enlarged again with mitral valve calcifications. Noncontrasted stomach and bowel loops appear nonobstructed. There remains diffuse scattered colonic diverticulosis without diverticulitis. Again appendectomy and hysterectomy. Urinary bladder is now moderately distended, possible outlet obstruction versus neurogenic bladder. No free fluid/air. Remaining liver, gallbladder, pancreas, spleen, adrenal glands, kidneys, ureters, and bladder are unremarkable for noncontrast exam. There remains mild scattered aortoiliac calcifications without AAA. Osseous structures intact again with osteopenia, mild/moderate degenerative changes throughout the spine, and mild bilateral degenerative arthropathy. Impression: 1. Distended urinary bladder. Rule out outlet obstruction versus neurogenic bladder. 2. Again chronic findings including bibasilar atelectasis/scarring, colonic diverticulosis, arteriosclerotic disease, and chronic bony findings. 3. Remaining CT abdomen/pelvis without contrast exam is negative.
--- NOTE | 2023-01-10 08:42 | XRAY ---
Indication: Cough and general weakness. Comparison: December 01, 2021 Portable chest again demonstrates left mid to lower lung discoid atelectasis/scarring, less than before. No focal infiltrate, consolidation, or large effusion. Heart and mediastinal structures within normal limits again with tortuous descending aorta. Bony thorax intact again with osteopenia and mild degenerative changes. Impression: Nonacute chest with chronic features.
[2023-01-10] MEDS ORDERED: TYLENOL 325 MG PO ONE (08:44)
--- NOTE | 2023-01-10 09:39 | PCM.DS ---
Discharge Summary Date of Admission: 01/09/23 23:45 Date of Discharge: 01/10/23 Admitting Physician: CED MELVIN MD Consults: Consults on Case 01/10/23 01:31 Case Management [facility] Needs Assessment ROUTINE Primary Care Provider: LUIS GALLOWAY INDER Allergies Allergies morphine Allergy (Severe, Verified 01/09/23 19:51) anaphylaxis pt went into respiratory failure and acute renal failure the last time she had morphine. "I was in a coma for a week" adhesive Allergy (Mild, Verified 01/09/23 19:51) Blisters aspirin Allergy (Verified 01/09/23 19:51) Difficulty Breathing PT STATES THAT SHE CAN TAKE ASPIRIN 81 MG BUT NOTHING HIGHER IN DOSE. Penicillins Allergy (Verified 01/09/23 19:51) Rash povidone-iodine [From Betadine] Allergy (Verified 01/09/23 19:51) BLISTERES soap [From Betadine] Allergy (Verified 01/09/23 19:51) Blisters Hospital Summary - Hospital Course Hospital Course: is a 72 year old female with a history of diabetes mellitus, hypertension, hyperlipidemia, atrial fibrillation, congestive heart failure, chronic respiratory failure secondary to COPD (on 2L NC), noncompliant with medication and not taking any medicationsfor 10 months brought to the hospital with chief complaints of generalized weakness, fatigue, dizziness, nausea without vomiting, generalized abdominal pain, and minimally productive chronic cough (at baseline). The patient says that she chose to stop her medications 10 months ago because she "felt like it" but not due to any particular reason such as side effects or cost. There was a report of some confusion by family members to the ED team. She acknowledges generally poor mobility. She denies chest pain, fevers, chills, hematemesis, hemoptysis, or leg edema. At the time of my interview with the patient, she states other than generalized weakness her symptoms have resolved now that her blood glucose levels are stabilizing. Discussed the importance of glycemic control as well compliance with medications for her other comorbidities. She states she is ready to get back on track and is agreeable to follow up with her PCP. I have spoke to her PCP's office and Dr. Galloway notified of patient's non-compliance with medications. She has not been seen in his office for over one year. Plan is to resume her atorvastatin, ASA, E liquis, start insulin regimen with long/short acting insulin plus metformin/glipizide. Glucometer supplied for patient, C set up, patient refuses SNF. Appt made with PCP's office and ride being set up by CM. Patient is agreeable to plan, blood glucose levels stable and ready for discharge. New Diagnosis: Hyperglycemia New Medications: As stated above Follow Up: PCP Latest Assessment & Plan (1) Dehydration Current Visit: Yes Status: Acute Assessment & Plan: Has known CHF. BNP elevated but no edema on exam. Will monitor fluid status. Received IV fluids in ED. Code(s): E86.0 - DEHYDRATION (2) Hyperglycemia Current Visit: Yes Status: Acute Assessment & Plan: Will need to verify prior regimen in AM. Placed on ISS and will order A1c. Diabetic diet. May need diabetes reeducation. Code(s): R73.9 - HYPERGLYCEMIA, UNSPECIFIED (3) Generalized weakness Current Visit: Yes Status: Acute Assessment & Plan: PT eval. Family may not be able to care for patient. CM eval to assess needs. Code(s): R53.1 - WEAKNESS (4) Nausea & vomiting Current Visit: No Status: Acute Qualifiers: Vomiting type: unspecified Qualified Code(s): R11.2 - Nausea with vomiting, unspecified Assessment & Plan: Exam unremarkable and CT scan does not demonstrate acute process. Zofran prn. Pepcid for prophylaxis. Code(s): R11.2 - NAUSEA WITH VOMITING, UNSPECIFIED I spent 45 minutes [id number] with the patient on the day of discharge performing discharge exam, discussing hospital stay and discharge instructions with patient and caregivers, preparation of discharge records, prescriptions & referral forms and addressing any questions/concerns the patient had as documented above. - Vitals & Intake/Output Vital Signs: Vital Signs Temperature 97.1 F 01/10/23 06:58 Pulse Rate 62 01/10/23 06:58 Respiratory Rate 18 01/10/23 06:58 Blood Pressure 139/65 01/10/23 06:58 O2 Sat by Pulse Oximetry 98 01/10/23 07:30 Intake & Output: Intake & Output 01/07/23 01/08/23 01/09/23 01/10/23 11:59 11:59 11:59 11:59 Intake Total 240 Output Total 1200 Balance -960 Weight 80.6 kg - Lab Result Diagrams: 01/10/23 04:20 01/10/23 04:20 Lab Results-Last 24 Hrs: Lab Results-Last 24 Hours 01/09/23 01/09/23 01/09/23 Range/Units 20:35 20:42 20:42 WBC 8.9 (4.0-10.5) x10^3/uL RBC 5.18 (4.1-5.4) x10^6/uL Hgb 15.8 (12.0-16.0) g/dL Hct 46.4 (35-47) % MCV 89.6 (78-100) fL MCH 30.5 (26-32) pg MCHC 34.1 (32-36) g/dL RDW 12.1 (11.5-14.0) % Plt Count 222 (150-450) x10^3/uL MPV 11.1 H (7.5-11.0) fL Gran % 73.0 H (36.0-66.0) % Immature Gran % (Auto) 0.3 (0.00-0.4) % Nucleat RBC Rel Count 0.0 (0.00-0.1) % Eos # (Auto) 0.01 (0-0.5) x10^3/uL Immature Gran # (Auto) 0.03 (0.00-0.03) x10^3u/L Absolute Lymphs (auto) 1.81 (1.0-4.6) x10^3/uL Absolute Monos (auto) 0.52 (0.0-1.3) x10^3/uL Absolute Nucleated RBC 0.00 (0.00-0.01) x10^3u/L Lymphocytes % 20.4 L (24.0-44.0) % Monocytes % 5.8 (0.0-12.0) % Eosinophils % 0.1 (0.00-5.0) % Basophils % 0.4 (0.0-0.4) % Absolute Granulocytes 6.48 (1.4-6.9) x10^3/uL Basophils # 0.04 (0-0.4) x10^3/uL Sodium 133 L (137-145) mmol/L Potassium 4.3 (3.5-5.1) mmol/L Chloride 99 (98-107) mmol/L Carbon Dioxide 24 (22-30) mmol/L Anion Gap 14.4 (5-15) MEQ/L BUN 9 (7-17) mg/dL Creatinine 0.47 L (0.52-1.04) mg/dL Estimated GFR > 60.0 ML/MIN Glucose 471 H (74-106) mg/dL POC Glucometer (74 to 106) mg/dL Hemoglobin A1c (4.5-6.0) % Lactic Acid 1.6 (0.4-2.0) Calcium 9.3 (8.4-10.2) mg/dL Magnesium 2.0 (1.6-2.3) mg/dL Total Bilirubin 0.60 (0.2-1.3) mg/dL AST 16 (14-36) U/L ALT 14 (0-35) U/L Alkaline Phosphatase 116 (38-126) U/L Troponin I (0.000-0.034) ng/mL NT-Pro-B Natriuret Pep (<300) pg/mL Serum Total Protein 6.2 L (6.3-8.2) g/dL Albumin 3.8 (3.5-5.0) g/dL Lipase 64 (23-300) U/L Procalcitonin (0.030-0.080) ng/mL Urine Color (YELLOW) Urine Appearance (CLEAR) Urine pH (5-6) Ur Specific [place] (1.005-1.025) POC Urine Protein Conf (Negative) Urine Ketones (NEGATIVE) Urine Nitrite (NEGATIVE) Urine Bilirubin (NEGATIVE) Urine Urobilinogen (0-1) mg/dL Urine Leukocytes (NEGATIVE) U Hyaline Cast (Auto) (0-2) /LPF Urine RBC (0-5) Kervin/ul Urine Microscopic RBC (0-5) /HPF Urine Microscopic WBC (0-5) /HPF Ur Epithelial Cells (None Seen) /HPF Urine Bacteria (None Seen) /HPF Urine Culture Reflexed (NO) Urine Glucose (NEGATIVE) mg/dL 01/09/23 01/09/23 01/09/23 Range/Units 20:42 20:42 21:22 WBC (4.0-10.5) x10^3/uL RBC (4.1-5.4) x10^6/uL Hgb (12.0-16.0) g/dL Hct (35-47) % MCV (78-100) fL MCH (26-32) pg MCHC (32-36) g/dL RDW (11.5-14.0) % Plt Count (150-450) x10^3/uL MPV (7.5-11.0) fL Gran % (36.0-66.0) % Immature Gran % (Auto) (0.00-0.4) % Nucleat RBC Rel Count (0.00-0.1) % Eos # (Auto) (0-0.5) x10^3/uL Immature Gran # (Auto) (0.00-0.03) x10^3u/L Absolute Lymphs (auto) (1.0-4.6) x10^3/uL Absolute Monos (auto) (0.0-1.3) x10^3/uL Absolute Nucleated RBC (0.00-0.01) x10^3u/L Lymphocytes % (24.0-44.0) % Monocytes % (0.0-12.0) % Eosinophils % (0.00-5.0) % Basophils % (0.0-0.4) % Absolute Granulocytes (1.4-6.9) x10^3/uL Basophils # (0-0.4) x10^3/uL Sodium (137-145) mmol/L Potassium (3.5-5.1) mmol/L Chloride (98-107) mmol/L Carbon Dioxide (22-30) mmol/L Anion Gap (5-15) MEQ/L BUN (7-17) mg/dL Creatinine (0.52-1.04) mg/dL Estimated GFR ML/MIN Glucose (74-106) mg/dL POC Glucometer (74 to 106) mg/dL Hemoglobin A1c (4.5-6.0) % Lactic Acid (0.4-2.0) Calcium (8.4-10.2) mg/dL Magnesium (1.6-2.3) mg/dL Total Bilirubin (0.2-1.3) mg/dL AST (14-36) U/L ALT (0-35) U/L Alkaline Phosphatase (38-126) U/L Troponin I < 0.012 (0.000-0.034) ng/mL NT-Pro-B Natriuret Pep 613 (<300) pg/mL Serum Total Protein (6.3-8.2) g/dL Albumin (3.5-5.0) g/dL Lipase (23-300) U/L Procalcitonin 0.064 (0.030-0.080) ng/mL Urine Color YELLOW (YELLOW) Urine Appearance CLEAR (CLEAR) Urine pH 6.5 (5-6) Ur Specific [place] 1.010 (1.005-1.025) POC Urine Protein Conf 100 A (Negative) Urine Ketones MODERATE-40 A (NEGATIVE) Urine Nitrite NEGATIVE (NEGATIVE) Urine Bilirubin NEGATIVE (NEGATIVE) Urine Urobilinogen 0.2 (0-1) mg/dL Urine Leukocytes NEGATIVE (NEGATIVE) U Hyaline Cast (Auto) NONE SEEN (0-2) /LPF Urine RBC NEGATIVE (0-5) Kervin/ul Urine Microscopic RBC 0-2 (0-5) /HPF Urine Microscopic WBC 0-2 (0-5) /HPF Ur Epithelial Cells None Seen (None Seen) /HPF Urine Bacteria None Seen (None Seen) /HPF Urine Culture Reflexed ORDERED SEPARATELY (NO) Urine Glucose >=1000 A (NEGATIVE) mg/dL 01/10/23 01/10/23 01/10/23 Range/Units 04:20 04:20 04:20 WBC 9.8 (4.0-10.5) x10^3/uL RBC 4.61 (4.1-5.4) x10^6/uL Hgb 14.2 (12.0-16.0) g/dL Hct 41.5 (35-47) % MCV 90.0 (78-100) fL MCH 30.8 (26-32) pg MCHC 34.2 (32-36) g/dL RDW 12.7 (11.5-14.0) % Plt Count 232 (150-450) x10^3/uL MPV 10.8 (7.5-11.0) fL Gran % 57.2 (36.0-66.0) % Immature Gran % (Auto) 0.3 (0.00-0.4) % Nucleat RBC Rel Count 0.0 (0.00-0.1) % Eos # (Auto) 0.02 (0-0.5) x10^3/uL Immature Gran # (Auto) 0.03 (0.00-0.03) x10^3u/L Absolute Lymphs (auto) 3.35 (1.0-4.6) x10^3/uL Absolute Monos (auto) 0.75 (0.0-1.3) x10^3/uL Absolute Nucleated RBC 0.00 (0.00-0.01) x10^3u/L Lymphocytes % 34.1 (24.0-44.0) % Monocytes % 7.6 (0.0-12.0) % Eosinophils % 0.2 (0.00-5.0) % Basophils % 0.6 (0.0-0.4) % Absolute Granulocytes 5.61 (1.4-6.9) x10^3/uL Basophils # 0.06 (0-0.4) x10^3/uL Sodium 136 L (137-145) mmol/L Potassium 3.6 (3.5-5.1) mmol/L Chloride 101 (98-107) mmol/L Carbon Dioxide 27 (22-30) mmol/L Anion Gap 11.2 (5-15) MEQ/L BUN 9 (7-17) mg/dL Creatinine 0.62 (0.52-1.04) mg/dL Estimated GFR > 60.0 ML/MIN Glucose 290 H (74-106) mg/dL POC Glucometer (74 to 106) mg/dL Hemoglobin A1c > 14.00 H (4.5-6.0) % Lactic Acid (0.4-2.0) Calcium 8.5 (8.4-10.2) mg/dL Magnesium (1.6-2.3) mg/dL Total Bilirubin (0.2-1.3) mg/dL AST (14-36) U/L ALT (0-35) U/L Alkaline Phosphatase (38-126) U/L Troponin I (0.000-0.034) ng/mL NT-Pro-B Natriuret Pep (<300) pg/mL Serum Total Protein (6.3-8.2) g/dL Albumin (3.5-5.0) g/dL Lipase (23-300) U/L Procalcitonin (0.030-0.080) ng/mL Urine Color (YELLOW) Urine Appearance (CLEAR) Urine pH (5-6) Ur Specific [place] (1.005-1.025) POC Urine Protein Conf (Negative) Urine Ketones (NEGATIVE) Urine Nitrite (NEGATIVE) Urine Bilirubin (NEGATIVE) Urine Urobilinogen (0-1) mg/dL Urine Leukocytes (NEGATIVE) U Hyaline Cast (Auto) (0-2) /LPF Urine RBC (0-5) Kervin/ul Urine Microscopic RBC (0-5) /HPF Urine Microscopic WBC (0-5) /HPF Ur Epithelial Cells (None Seen) /HPF Urine Bacteria (None Seen) /HPF Urine Culture Reflexed (NO) Urine Glucose (NEGATIVE) mg/dL 01/10/23 Range/Units 07:02 WBC (4.0-10.5) x10^3/uL RBC (4.1-5.4) x10^6/uL Hgb (12.0-16.0) g/dL Hct (35-47) % MCV (78-100) fL MCH (26-32) pg MCHC (32-36) g/dL RDW (11.5-14.0) % Plt Count (150-450) x10^3/uL MPV (7.5-11.0) fL Gran % (36.0-66.0) % Immature Gran % (Auto) (0.00-0.4) % Nucleat RBC Rel Count (0.00-0.1) % Eos # (Auto) (0-0.5) x10^3/uL Immature Gran # (Auto) (0.00-0.03) x10^3u/L Absolute Lymphs (auto) (1.0-4.6) x10^3/uL Absolute Monos (auto) (0.0-1.3) x10^3/uL Absolute Nucleated RBC (0.00-0.01) x10^3u/L Lymphocytes % (24.0-44.0) % Monocytes % (0.0-12.0) % Eosinophils % (0.00-5.0) % Basophils % (0.0-0.4) % Absolute Granulocytes (1.4-6.9) x10^3/uL Basophils # (0-0.4) x10^3/uL Sodium (137-145) mmol/L Potassium (3.5-5.1) mmol/L Chloride (98-107) mmol/L Carbon Dioxide (22-30) mmol/L Anion Gap (5-15) MEQ/L BUN (7-17) mg/dL Creatinine (0.52-1.04) mg/dL Estimated GFR ML/MIN Glucose (74-106) mg/dL POC Glucometer 322 H (74 to 106) mg/dL Hemoglobin A1c (4.5-6.0) % Lactic Acid (0.4-2.0) Calcium (8.4-10.2) mg/dL Magnesium (1.6-2.3) mg/dL Total Bilirubin (0.2-1.3) mg/dL AST (14-36) U/L ALT (0-35) U/L Alkaline Phosphatase (38-126) U/L Troponin I (0.000-0.034) ng/mL NT-Pro-B Natriuret Pep (<300) pg/mL Serum Total Protein (6.3-8.2) g/dL Albumin (3.5-5.0) g/dL Lipase (23-300) U/L Procalcitonin (0.030-0.080) ng/mL Urine Color (YELLOW) Urine Appearance (CLEAR) Urine pH (5-6) Ur Specific [place] (1.005-1.025) POC Urine Protein Conf (Negative) Urine Ketones (NEGATIVE) Urine Nitrite (NEGATIVE) Urine Bilirubin (NEGATIVE) Urine Urobilinogen (0-1) mg/dL Urine Leukocytes (NEGATIVE) U Hyaline Cast (Auto) (0-2) /LPF Urine RBC (0-5) Kervin/ul Urine Microscopic RBC (0-5) /HPF Urine Microscopic WBC (0-5) /HPF Ur Epithelial Cells (None Seen) /HPF Urine Bacteria (None Seen) /HPF Urine Culture Reflexed (NO) Urine Glucose (NEGATIVE) mg/dL Micro Results-Entire Visit: Accuchecks Date 01/10/23 Time 07:07 - Radiology Exams Ordered Rad Exams-Entire Visit: Radiology Procedures Category Date Time Status ABDOMEN AND PELVIS W/0 CONTRAS [CT] Stat Exams 01/09/23 20:50 Completed CHEST 1 VIEW (PORTABLE) Stat Exams 01/09/23 21:05 Completed HEAD WITHOUT CONTRAST [CT] Stat Exams 01/09/23 20:46 Completed - Procedures and Test Procedures and Tests throughout Hospitalization: Therapy Orders & Screens 01/09/23 23:53 Respiratory Therapy Consult ONCE Comment: Reason For Exam: 01/10/23 01:26 PT Eval & Treat ( Order) ONCE Reason for Eval:: DEBILITY Diagnosis: hypergycemia, dehydration Oxygen Nasal Cannula 2 lpm Comment: Diagnosis: hypergycemia, dehydration 01/10/23 02:33 BiPap/CPAP ROUTINE Comment: Diagnosis: hypergycemia, dehydration Respiratory Therapy Assessment DAILY Comment: Diagnosis: hypergycemia, dehydration Discharge Exam General Appearance: no apparent distress Neurologic Exam: alert, oriented x 3, cooperative Eye Exam: PERRL Ears, Nose, Throat Exam: dry mucous membranes Neck Exam: normal inspection Respiratory Exam: crackles/rales, other (3L baseline oxygen) Cardiovascular Exam: regular rate/rhythm, normal heart sounds Gastrointestinal/Abdomen Exam: normal bowel sounds Pelvic Exam: deferred Rectal Exam: deferred Extremity Exam: normal inspection Skin Exam: normal color Final Diagnosis/Problem List - Final Discharge Diagnosis/Problem (1) Hyperglycemia due to type 2 diabetes mellitus Current Visit: No Status: Acute Code(s): E11.65 - TYPE 2 DIABETES MELLITUS WITH HYPERGLYCEMIA (2) Dehydration Current Visit: Yes Status: Acute Code(s): E86.0 - DEHYDRATION (3) Generalized weakness Current Visit: Yes Status: Acute Code(s): R53.1 - WEAKNESS (4) Nausea & vomiting Current Visit: No Status: Acute Code(s): R11.2 - NAUSEA WITH VOMITING, UNSPECIFIED - Discharge Disposition: HOME HEALTH SERVICE Condition: Stable Prescriptions: New RX: Aspirin EC 81 mg [Ecotrin 81 mg] 81 mg PO DAILY 30 Days #30 tablet Apixaban [Eliquis] 5 mg PO BID 30 Days #60 tab RX: Metformin HCl 500 mg [Glucophage 500 MG] 500 mg PO BIDWM 30 Days #60 tablet RX: Glipizide 2.5 mg [Glucotrol Xl 2.5 MG] 2.5 mg PO BID 30 Days #60 tablet RX: Insulin Glargine [Lantus Insulin] 20 unit SQ QAM 30 Days #600 unit RX: Rosuvastatin Calcium 10 mg PO DAILY 30 Days #30 tablet Insulin Lispro [Humalog] 9 unit SQ TIDWM 30 Days #810 units Lancets [Accu-Chek Softclix] 1 each TIDA #100 units Blood-Glucose Meter [Accu-Chek Guide Me Glucose Mtr] 1 each UD #1 unit Blood Sugar Diagnostic [Accu-Chek Guide Test Strip] 1 each TIDAC #100 strip Pen Needle, Diabetic [Pen Needle] 1 each UD #100 units Additional Instructions: TEST YOUR BLOOD SUGARS THREE TIMES A DAY BEFORE MEALS CALL [facility] AT [phone] TO LET KNOW YOU ARE DISCHARGED SO THEY CAN FINISH PROCESSING YOUR GLUCOMETER/TEST STRIPS/LANCETS SO YOU CAN PICK THEM UP [facility] HAS BEEN SETUP FOR YOU. THEY WILL CALL YOU TO ARRANGE A VISIT. THEIR PHONE NUMBER IS [phone] IF YOU NEED ANYTHING BEFORE THEIR FIRST VISIT. A REFERRAL HAS BEEN SENT TO [employer] THEY ARE AN AGENCY THAT CAN HELP GET YOU ASSISTANCE THRU MEDICAID. THEY WILL CALL YOU. THEIR PHONE NUMBER IS [phone] [facility] WILL SEE YOU AT YOUR HOME ON FRIDAY AT 2PM. YOU CAN REACH GURPREET THE NURSE AT [phone] Follow up with: CECELIA ROMANO DO [ACTIVE STAFF] - 01/14/23 2:00 pm LUIS GALLOWAY MD [Primary Care Provider] - (Follow up Friday with Daily)
[2023-01-10] MEDS ORDERED: Pepcid 20 MG PO SCH (10:00)
[2023-01-10] MEDS ORDERED: Lantus Insulin SQ SCH (10:00)
[2023-01-10] MEDS ORDERED: ENOXAPARIN SODIUM SQ SCH (10:00)
[2023-01-10 11:22] VITALS: BP 137/65; PULSE 69; TEMP 98.6; O2SAT 97
[2023-01-10] MEDS ORDERED: HUMALOG SQ SCH (12:00)
[2023-01-10] MEDS ORDERED: NYSTOP POWDER 15 GM TP SCH (13:00)
== END 2023-01-10 16:00 | disposition home health service (06) ==
LOC: ED 19:43 → MED SURG 23:45
PROVIDERS: ADMIT Internal Medicine; ATTEND Internal Medicine
DX: E11.65 Type 2 diabetes mellitus with hyperglycemia (principal); E86.0 Dehydration; R53.1 Weakness; R11.2 Nausea with vomiting, unspecified; I11.0 Hypertensive heart disease with heart failure; I50.9 Heart failure, unspecified; E78.5 Hyperlipidemia, unspecified; I48.91 Unspecified atrial fibrillation; J96.10 Chronic respiratory failure, unspecified whether with hypoxia or hypercapnia; J44.9 Chronic obstructive pulmonary disease, unspecified; Z20.828 Contact with and (suspected) exposure to other viral communicable diseases; Z99.81 Dependence on supplemental oxygen; Z91.148 Patient's other noncompliance with medication regimen for other reason
CPT/HCPCS: 36000; 36415; 51702; 70450; 71045; 74176; 80048; 80053; 81015; 82947; 83036; 83605; 83690; 83735; 83880; 84145; 84484; 85025; 87040; 87086; 93005; 94760; 96360; 96372; 96374; 97161; 99285; Q3014; 93268; G0378; J1650; J1815; J1817; J2405; A9270-GY

== ENCOUNTER 2023-06-24 10:12 | Observation (INO) | payer MEDICARE, BC ==
--- NOTE | 2023-06-24 10:42 | ERPHSYRPT ---
- History of Present Illness Time Seen by Provider: 06/24/23 10:38 Source: patient Exam Limitations: no limitations Physician History: 73-year-old female presents to the emergency department for evaluation of intermittent fast heart rate. Symptoms have been on going intermittently for for about 1 week. [facility] and was sent to our ED for evaluation. Patient occasionally experiences pain radiating down her left arm to her fingers. No nausea no vomiting no diaphoresis. Symptoms are moderate in intensity. No specific worsening or improving factors. Patient admits to history of A-fib. She voices no other complaints or concerns at this time. Portions of this note were created with voice recognition technology. There may be grammatical, spelling, punctuation or sound alike errors Timing/Duration: today Severity: moderate Modifying Factors: Improves With: nothing Associated Symptoms: denies symptoms Allergies/Adverse Reactions: morphine Allergy (Severe, Verified 06/24/23 10:50) anaphylaxis pt went into respiratory failure and acute renal failure the last time she had morphine. "I was in a coma for a week" adhesive Allergy (Mild, Verified 06/24/23 10:50) Blisters aspirin Allergy (Verified 06/24/23 10:50) Difficulty Breathing PT STATES THAT SHE CAN TAKE ASPIRIN 81 MG BUT NOTHING HIGHER IN DOSE. Penicillins Allergy (Verified 06/24/23 10:50) Rash povidone-iodine [From Betadine] Allergy (Verified 06/24/23 10:50) BLISTERES soap [From Betadine] Allergy (Verified 06/24/23 10:50) Blisters Hx Tetanus, Diphtheria Vaccination/Date Given: Yes Hx Influenza Vaccination/Date Given: Yes Hx Pneumococcal Vaccination/Date Given: Yes Travel Risk - Vaccine Status Have you recieved a Covid-19 vaccination: Yes Apprise Counselor: Unknown - Vaccination Dates Dates if Unknown: unk - Review of Systems Constitutional: No Symptoms, No Fever, No Chills Eyes: No Symptoms Ears, Nose, & Throat: No Symptoms Respiratory: No Symptoms, No Cough, No Dyspnea Cardiac: No Symptoms, No Chest Pain, No Edema, No Syncope Abdominal/Gastrointestinal: No Symptoms, No Abdominal Pain, No Nausea, No Vomiting, No Diarrhea Genitourinary Symptoms: No Symptoms, No Dysuria Musculoskeletal: No Symptoms, No Back Pain, No Neck Pain Skin: No Symptoms, No Rash Neurological: No Symptoms, No Dizziness, No Focal Weakness, No Sensory Changes Psychological: No Symptoms Endocrine: No Symptoms Hematologic/Lymphatic: No Symptoms Immunological/Allergic: No Symptoms All Other Systems: Reviewed and Negative - Past Medical History Pertinent Past Medical History: Yes Neurological History: Peripheral Neuropathy ENT History: No Pertinent History Cardiac History: Angina, Arrhythmia, Congestive Heart Failure, High Cholesterol, Hypertension Respiratory History: COPD, Pneumonia Endocrine Medical History: Diabetes Type II Musculoskeletal History: Arthritis, Fractures GI Medical History: Diverticulitis, Other History: Other Psycho-Social History: No Pertinent History Female Reproductive Disorders: No Pertinent History Other Medical History: Impaired kidney function, HYPOKALEMIA, LEFT ANKLE FRACTURE 05/07/19, C DIFF COVID 09/2021 - Past Surgical History Past Surgical History: Yes Neuro Surgical History: No Pertinent History Cardiac: No Pertinent History Respiratory: No Pertinent History Gastrointestinal: Appendectomy Genitourinary: No Pertinent History Musculoskeletal: Orthopedic Surgery Female Surgical History: Hysterectomy Other Surgical History: Multiple hand surgeries, Left foot surgery approx 8 months ago with surgical sight still not completely healed today. Dr Rahul harris re. Significant Family History: diabetes, hypertension - Social History Smoking Status: Former smoker How long have you smoked: 1 year Exposure to second hand smoke: Yes Alcohol Use: None Drug Use: none Patient Lives Alone: No - Nursing Vital Signs Nursing Vital Signs: Initial Vital Signs Temperature 97.0 F 06/24/23 10:40 Pulse Rate 159 H 06/24/23 10:40 Respiratory Rate 18 06/24/23 10:40 Blood Pressure 152/99 06/24/23 10:40 O2 Sat by Pulse Oximetry 97 06/24/23 10:40 Pain Scale Pain Intensity 0 - Physical Exam General Appearance: no apparent distress, alert Eye Exam: PERRL/EOMI, eyes nml inspection Ears, Nose, Throat Exam: normal ENT inspection, TMs normal, pharynx normal, mois t mucous membranes Neck Exam: normal inspection, non-tender, supple, full range of motion Respiratory Exam: normal breath sounds, lungs clear, airway intact, No respiratory distress Cardiovascular Exam: regular rate/rhythm, normal heart sounds, normal peripheral pulses Gastrointestinal/Abdomen Exam: soft, normal bowel sounds, No tenderness, No mass Back Exam: normal inspection, normal range of motion, No CVA tenderness, No vertebral tenderness Extremity Exam: normal inspection, normal range of motion, pelvis stable Neurologic Exam: alert, oriented x 3, cooperative, normal mood/affect, nml cerebellar function, nml station & gait, sensation nml, No motor deficits Skin Exam: normal color, warm, dry, No rash Lymphatic Exam: No adenopathy SpO2 Interpretation: normal SpO2: 97 O2 Delivery: Room Air - Course Nursing assessment & vital signs reviewed: Yes Ordered Tests: Active Orders 24 hr Category Date Time Status Gr[employer]ater STAT Care 06/24/23 10:41 Completed EKG-ER Only STAT Care 06/24/23 10:40 Active IV Insertion STAT Care 06/24/23 10:40 Active Pulse Oximetry (ED) STAT Care 06/24/23 10:40 Active CBC W DIFF Stat Lab 06/24/23 10:52 Completed CMP Stat Lab 06/24/23 10:52 Completed NT PRO BNPII Stat Lab 06/24/23 10:52 Completed TROPONIN Q4H Lab 06/24/23 10:52 Completed TROPONIN Q4H Lab 06/24/23 14:45 Ordered TROPONIN Q4H Lab 06/24/23 18:45 Ordered UA W/RFX UR CULTURE Stat Lab 06/24/23 11:35 Ordered Transfer Order Routine Transfer 06/24/23 Ordered Medication Summary Generic Name Dose Route Start Last Admin Trade Name Freq PRN Reason Stop Dose Admin Diltiazem HCl 100 mls @ 5 mls/hr 06/24/23 11:19 06/24/23 11:57 Cardizem Drip 100 Mg/100 Ml D5w IV 07/24/23 11:18 2.5 mg/hr .Q20H PRN 2.5 mls/hr HEART RATE/ A-FIB Titration Protocol 5 MG/HR Sodium Chloride 1,000 mls @ 50 mls/hr 06/24/23 12:00 06/24/23 11:55 Sodium Chloride 0.9% 1000 Ml IV 07/24/23 11:59 50 mls/hr .Q20H JAMAL Administration Discontinued Medications Generic Name Dose Route Start Last Admin Trade Name Freq PRN Reason Stop Dose Admin Diltiazem HCl 10 mg 06/24/23 11:17 06/24/23 11:22 Diltiazem Hcl Iv 5 Mg/Ml Vial IV 06/24/23 11:18 10 mg STAT ONE Administration Diltiazem HCl Confirm 06/24/23 11:19 Diltiazem Hcl Iv 5 Mg/Ml Vial Administered 06/24/23 11:20 Dose 50 mg IV .STK-MED ONE Sodium Chloride Confirm 06/24/23 10:46 Sodium Chloride 0.9% 1000 Ml Administered 06/24/23 10:47 Dose 1,000 mls @ ud .ROUTE .STK-MED ONE Sodium Chloride 1,000 mls @ 999 mls/hr 06/24/23 10:48 06/24/23 11:59 Sodium Chloride 0.9% 1000 Ml IV 06/24/23 11:48 Infused .Q1H1M STA Infusion Lab/Rad Data: Laboratory Result Diagrams 06/24/23 10:52 06/24/23 10:52 Laboratory Results 06/24/23 06/24/23 06/24/23 Range/Units 10:52 10:52 10:52 WBC 7.8 (4.0-10.5) x10^3/uL RBC 4.94 (4.1-5.4) x10^6/uL Hgb 15.0 (12.0-16.0) g/dL Hct 47.0 (35-47) % MCV 95.1 (78-100) fL MCH 30.4 (26-32) pg MCHC 31.9 L (32-36) g/dL RDW 13.9 (11.5-14.0) % Plt Count 264 (150-450) x10^3/uL MPV 10.5 (7.5-11.0) fL Gran % 49.8 (36.0-66.0) % Immature Gran % (Auto) 0.1 (0.00-0.4) % Nucleat RBC Rel Count 0.0 (0.00-0.1) % Eos # (Auto) 0.07 (0-0.5) x10^3/uL Immature Gran # (Auto) 0.01 (0.00-0.03) x10^3u/L Absolute Lymphs (auto) 3.15 (1.0-4.6) x10^3/uL Absolute Monos (auto) 0.65 (0.0-1.3) x10^3/uL Absolute Nucleated RBC 0.00 (0.00-0.01) x10^3u/L Lymphocytes % 40.3 (24.0-44.0) % Monocytes % 8.3 (0.0-12.0) % Eosinophils % 0.9 (0.00-5.0) % Basophils % 0.6 (0.0-0.4) % Absolute Granulocytes 3.88 (1.4-6.9) x10^3/uL Basophils # 0.05 (0-0.4) x10^3/uL Sodium 142 (135-145) mmol/L Potassium 4.2 (3.5-5.1) mmol/L Chloride 109 H (98-107) mmol/L Carbon Dioxide 22 (22-30) mmol/L Anion Gap 15.4 H (5-15) MEQ/L BUN 22 H (7-17) mg/dL Creatinine 0.88 (0.52-1.04) mg/dL Estimated GFR 68.9 ML/MIN Glucose 147 H (74-106) mg/dL Calcium 9.4 (8.4-10.2) mg/dL Total Bilirubin 0.40 (0.2-1.3) mg/dL AST 21 (14-36) U/L ALT 16 (0-35) U/L Alkaline Phosphatase 66 (38-126) U/L Troponin I 0.015 (0.000-0.034) ng/mL NT-Pro-B Natriuret Pep 4680 (<300) pg/mL Serum Total Protein 7.0 (6.3-8.2) g/dL Albumin 4.1 (3.5-5.0) g/dL - Progress Progress: improved Progress Note: 73-year-old female presents to our ED for evaluation of 1 week history of i ntermittent shortness of breath and heart palpitations. Patient has a history of A-fib. Patient on Eliquis. Physical exam nonremarkable. Lungs are clear. No respiratory distress. No shortness of breath at time of my exam. Patient was tachycardic on the monitor. EKG reveals SVT. Patient treated with Cardizem. Heart rate significantly improved. Patient remains asymptomatic. Patient will require hospitalization for further evaluation and treatment. In light of the fact that patient is currently on Cardizem drip ICU admission will be required. Case discussed with who accepts admission at 12:12 PM. Plan of care discussed with patient. Patient agrees to admission to [facility] for further evaluation and treatment. Laboratory workup otherwise nonremarkable. Troponin negative. Portions of this note were created with voice recognition technology. There may be grammatical, spelling, punctuation or sound alike errors Complexity of problem addressed is moderate acute complicated No critical care time Complex of data reviewed and analyzed is extensive test ordered test reviewed. Results analyzed and correlated clinically with history and physical exam. Management discussed with hospitalist who accepts admission to observation. Risk of complication and or risk of morbidity/mortality of patient management is high. Patient requires hospitalization for further evaluation and treatment. Vital stable. Time spent to admit patient is approximately 20 minutes. Plan of care established for shared decision making. No social determinants of health present impede follow-up. Portions of this note were created with voice recognition technology. There may be grammatical, spelling, punctuation or sound alike errors 06/24/23 12:26 Counseled pt/family regarding: lab results, diagnosis - Departure Departure Disposition: Observation Clinical Impression: SVT (supraventricular tachycardia) Condition: Stable Critical Care Time: No Referrals: CECELIA ROMANO DO [Primary Care Provider] - Follow up/PCP as directed
[2023-06-24] MEDS ORDERED: Sodium Chloride 0.9% 1000 ML 1,000 ML ONE (10:46)
[2023-06-24] MEDS: Sodium Chloride 0.9% 1000 ML 1,000 ML IV STA (10:49)
[2023-06-24 10:53] LABS: Absolute Neutrophil Ct (ANC) 3.88 x10^3/uL (1.4-6.9); BASOPHIL % 0.6 % (0.0-0.4); Basophil (Absolute #) 0.05 x10^3/uL (0-0.4); Eosinophil % 0.9 % (0.00-5.0); Eosinophil (Absolute #) 0.07 x10^3/uL (0-0.5); IMMATURE GRAN # 0.01 x10^3u/L (0.00-0.03); IMMATURE GRAN % 0.1 % (0.00-0.4); Lymphocyte (Absolute #) 3.15 x10^3/uL (1.0-4.6); Lymphocytes % 40.3 % (24.0-44.0); Mean Cell Volume 95.1 fL (78-100); Mean Corpuscular Hemoglobin 30.4 pg (26-32); Mean Corpuscular Hgb Concent. 31.9 g/dL (32-36); Mean Platelet Volume 10.5 fL (7.5-11.0); Monocyte (Absolute #) 0.65 x10^3/uL (0.0-1.3); Monocytes % 8.3 % (0.0-12.0); Neutrophil % 49.8 % (36.0-66.0); Platelet Count 264 x10^3/uL (150-450); Red Blood Count 4.94 x10^6/uL (4.1-5.4); Red Cell Distribution Width 13.9 % (11.5-14.0); White Blood Count 7.8 x10^3/uL (4.0-10.5)
[2023-06-24 11:15] LABS: ALBUMIN 4.1 g/dL (3.5-5.0); ANION GAP 15.4 MEQ/L (5-15); BILIRUBIN,TOTAL 0.4 mg/dL (0.2-1.3); Calcium 9.4 mg/dL (8.4-10.2); Creatinine 1 0.88 mg/dL (0.52-1.04); EST GLOMERULAR FILTRATION RATE 68.9 ML/MIN
[2023-06-24 11:17] LABS: Potassium 4.2 mmol/L (3.5-5.1)
[2023-06-24] MEDS ORDERED: Cardizem IV 50 MG/10 ML IV ONE (11:19)
[2023-06-24] MEDS: Cardizem IV 50 MG/10 ML IV ONE (11:22)
[2023-06-24] MEDS: CARDIZEM DRIP 100 MG/100 ML D5W 100 ML IV PRN (11:34)
[2023-06-24] MEDS: Sodium Chloride 0.9% 1000 ML 1,000 ML IV SCH (11:55)
[2023-06-24 12:42] LABS: Appearance Clear (Clear); Bacteria None Seen /HPF (None Seen); Bilirubin Negative (Negative); Blood Negative (Negative); Epithelial Cells None Seen /HPF (None Seen); Glucose, Urine Negative (Negative); Hyaline Casts NONE SEEN /LPF (0-2); Ketones Negative (Negative); Leukocyte Esterase Negative (Negative); Nitrite Negative (Negative); Ph 5.5 (4.6-8.0); Protein,Urine Dip Trace (Negative); RBC 0-2 /HPF (0-5); Urobilinogen 0.2 mg/dL (0.2); WBC 0-2 /HPF (0-5)
[2023-06-24 12:44] LABS: ADD URINE CULTURE? NO (NO)
--- NOTE | 2023-06-24 13:01 | PCM.HP ---
<JODIE LEVINE - Last Filed: 06/24/23 12:48> History of Present Illness - Chief Complaint Chief Complaint: AFIB RVR Date: 06/24/23 History of Present Illness: is a 72 year old female with a history of diabetes mellitus, hypertension, hyperlipidemia, atrial fibrillation, congestive heart failure, chronic respiratory failure secondary to COPD (on 2L NC), who presented to ED 06/24/23 under the advisement of the provider at [facility] for complaints of intermittent fast heart rate and chest pressure. Onset approximately 1 week ago. She states that the pressure is mid-sternal with no alleviating/aggravating factors. She also reports left jaw pain radiating down her left arm to her fingers. She denies shortness of breath, chest pain, nausea, vomiting, or diaphoresis. Dr. Marquez is her rn urology, she has been non-compliant with medications in the past but states she has been compliant with coreg and eliquis since her last hospitalization. In ED patient, patient was tachycardic and hypertensive. EKG showing SVT. Lab finding remarkable for BNP at 4680. Initial troponin x 1 negative. Patient started on cardizem drip and given fluid bolus. Plan for cardiac consult, cardizem drip until rate controlled. No recent echo on file, will check with Dr. Marquez if they have a recent one on file, if not, will obtain. - Review of Systems Constitutional: No Symptoms Eyes: No Symptoms Ears, Nose, & Throat: No Symptoms Respiratory: Short Of Breath (chronic) Cardiac: Other (chest pressure/left jaw pain with radiation to left arm/fingers) Abdominal/Gastrointestinal: No Symptoms Genitourinary Symptoms: No Symptoms Musculoskeletal: Joint Pain Skin: No Symptoms Neurological: No Symptoms Psychological: No Symptoms Endocrine: No Symptoms Hematologic/Lymphatic: No Symptoms Immunological/Allergic: No Symptoms Medications & Allergies Home Medications: Home Medication List Apixaban [Eliquis] 5 mg PO BID 30 Days #60 tab 01/10/23 [Rx Confirmed 06/24/23] Blood Sugar Diagnostic [Accu-Chek Guide Test Strip] 1 each TIDAC #100 strip 01/10/23 [Rx Confirmed 06/24/23] Blood-Glucose Meter [Accu-Chek Guide Me Glucose Mtr] 1 each UD #1 unit 01/10/23 [Rx Confirmed 06/24/23] Glipizide 2.5 mg [Glucotrol Xl 2.5 MG] 2.5 mg PO BID 30 Days #60 tablet 01/10/23 [Rx Confirmed 06/24/23] Insulin Glargine [Lantus Insulin] 20 unit SQ QAM 30 Days #600 unit 01/10/23 [Rx Confirmed 06/24/23] Lancets [Accu-Chek Softclix] 1 each TIDAC #100 units 01/10/23 [Rx Confirmed 06/24/23] Metformin HCl 500 mg [Glucophage 500 MG] 500 mg PO BIDWM 30 Days #60 tablet 01/10/23 [Rx Confirmed 06/24/23] Pen Needle, Diabetic [Pen Needle] 1 each UD #100 units 01/10/23 [Rx Confirmed 06/24/23] Carvedilol 3.125 mg [Coreg 3.125 MG] 3.125 mg PO BID 06/24/23 [History Confirmed 06/24/23] Furosemide 20 mg [Lasix 20 mg] 20 mg PO DAILY 06/24/23 [History Confirmed 06/24/23] Losartan Potassium 50 mg [Cozaar 50 MG] 50 mg PO DAILY 06/24/23 [History Confirmed 06/24/23] Allergies/Adverse Reactions: Allergies Allergy/AdvReac Type Severity Reaction Status Date / Time morphine Allergy Severe anaphylaxis Verified 06/24/23 10:50 adhesive Allergy Mild Blisters Verified 06/24/23 10:50 aspirin Allergy Difficulty Verified 06/24/23 10:50 Breathing Penicillins Allergy Rash Verified 06/24/23 10:50 povidone-iodine Allergy BLISTERES Verified 06/24/23 10:50 [From Betadine] soap [From Betadine] Allergy Blisters Verified 06/24/23 10:50 - Past Medical History Past Medical History: Yes Neurological History: Peripheral Neuropathy ENT History: No Pertinent History Cardiac History: Angina, Arrhythmia, Congestive Heart Failure, High Cholesterol, Hypertension Respiratory History: COPD, Pneumonia Endocrine Medical History: Diabetes Type II Musculoskelatal History: Arthritis, Fractures GI Medical History: Diverticulitis, Other History: Other Pyscho-Social History: No Pertinent History Reproductive Disorders: No Pertinent History Comment: Impaired kidney function, HYPOKALEMIA, LEFT ANKLE FRACTURE 05/07/19, C DIFF COVID 09/2021 - Past Surgical History Past Surgical History: Yes Neuro Surgical History: No Pertinent History Cardiac History: No Pertinent History Respiratory Surgery: No Pertinent History GI Surgical History: Appendectomy Genitourinary Surgical Hx: No Pertinent History Musculskeletal Surgical Hx: Orthopedic Surgery Female Surgical History: Hysterectomy Other Surgical History: Multiple hand surgeries, Left foot surgery approx 8 months ago with surgical sight still not completely healed today. Dr Rahul molina. Significant Family History: diabetes, hypertension - Social History Smoking Status: Former smoker How long have you smoked: 1 year Exposure to second hand smoke: Yes Alcohol: None Drug Use: none - Social Determinants of Health Will the patient participate in the screening: Yes Do you worry about a steady place to live?: No In the past 12 months,have you had to go without utilities?: No Have you or anyone in your house had to go without enough: No Transportation Issues: Choose not to answer Has anyone in your support network made you feel unsafe?: No Does the patient want assistance with any of the above?: Yes Comment: patient would like help finding someone to help clean her home and rid of pests - Physical Exam Vital Signs: Vital Signs - 24 hr Temp Pulse Pulse Resp BP BP Pulse Ox 06/24/23 12:47 137 H 20 110/88 06/24/23 12:31 97 06/24/23 12:00 118 H 136/72 97 06/24/23 11:52 114 H 79/54 97 06/24/23 11:40 124 H 126/78 98 06/24/23 11:34 122 H 139/73 06/24/23 11:33 113 H 06/24/23 11:32 142 H 06/24/23 11:25 102 H 133/62 06/24/23 11:24 90 20 99 06/24/23 11:20 160 H 20 97 06/24/23 10:54 155 H 06/24/23 10:41 96 06/24/23 10:40 97.0 F 159 H 18 152/99 97 General Appearance: no apparent distress Neurologic Exam: alert, oriented x 3, cooperative Eye Exam: PERRL/EOMI Ears, Nose, Throat Exam: normal ENT inspection Neck Exam: normal inspection Respiratory Exam: normal breath sounds, lungs clear Cardiovascular Exam: tachycardia, irregular Gastrointestinal/Abdomen Exam: soft, normal bowel sounds Pelvic Exam: not done Rectal Exam: deferred Back Exam: normal inspection Extremity Exam: normal inspection Skin Exam: normal color Results - Labs Lab/Micro Results: Lab Results-Last 24 Hours 06/24/23 06/24/23 06/24/23 Range/Units 10:52 10:52 10:52 WBC 7.8 (4.0-10.5) x10^3/uL RBC 4.94 (4.1-5.4) x10^6/uL Hgb 15.0 (12.0-16.0) g/dL Hct 47.0 (35-47) % MCV 95.1 (78-100) fL MCH 30.4 (26-32) pg MCHC 31.9 L (32-36) g/dL RDW 13.9 (11.5-14.0) % Plt Count 264 (150-450) x10^3/uL MPV 10.5 (7.5-11.0) fL Gran % 49.8 (36.0-66.0) % Immature Gran % (Auto) 0.1 (0.00-0.4) % Nucleat RBC Rel Count 0.0 (0.00-0.1) % Eos # (Auto) 0.07 (0-0.5) x10^3/uL Immature Gran # (Auto) 0.01 (0.00-0.03) x10^3u/L Absolute Lymphs (auto) 3.15 (1.0-4.6) x10^3/uL Absolute Monos (auto) 0.65 (0.0-1.3) x10^3/uL Absolute Nucleated RBC 0.00 (0.00-0.01) x10^3u/L Lymphocytes % 40.3 (24.0-44.0) % Monocytes % 8.3 (0.0-12.0) % Eosinophils % 0.9 (0.00-5.0) % Basophils % 0.6 (0.0-0.4) % Absolute Granulocytes 3.88 (1.4-6.9) x10^3/uL Basophils # 0.05 (0-0.4) x10^3/uL Sodium 142 (135-145) mmol/L Potassium 4.2 (3.5-5.1) mmol/L Chloride 109 H (98-107) mmol/L Carbon Dioxide 22 (22-30) mmol/L Anion Gap 15.4 H (5-15) MEQ/L BUN 22 H (7-17) mg/dL Creatinine 0.88 (0.52-1.04) mg/dL Estimated GFR 68.9 ML/MIN Glucose 147 H (74-106) mg/dL POC Glucometer (74 to 106) mg/dL Calcium 9.4 (8.4-10.2) mg/dL Total Bilirubin 0.40 (0.2-1.3) mg/dL AST 21 (14-36) U/L ALT 16 (0-35) U/L Alkaline Phosphatase 66 (38-126) U/L Troponin I 0.015 (0.000-0.034) ng/mL NT-Pro-B Natriuret Pep 4680 (<300) pg/mL Serum Total Protein 7.0 (6.3-8.2) g/dL Albumin 4.1 (3.5-5.0) g/dL Urine Color (Yellow) Urine Appearance (Clear) Urine pH (4.6-8.0) Ur Specific [place] (1.005-1.030) Urine Protein (Negative) Urine Glucose (UA) (Negative) mg/dL Urine Ketones (Negative) Urine Blood (Negative) Urine Nitrite (Negative) Urine Bilirubin (Negative) Urine Urobilinogen (0.2) mg/dL Ur Leukocyte Esterase (Negative) U Hyaline Cast (Auto) (0-2) /LPF Urine Microscopic RBC (0-5) /HPF Urine Microscopic WBC (0-5) /HPF Ur Epithelial Cells (None Seen) /HPF Urine Bacteria (None Seen) /HPF Urine Culture Reflexed (NO) 06/24/23 06/24/23 Range/Units 11:35 12:42 WBC (4.0-10.5) x10^3/uL RBC (4.1-5.4) x10^6/uL Hgb (12.0-16.0) g/dL Hct (35-47) % MCV (78-100) fL MCH (26-32) pg MCHC (32-36) g/dL RDW (11.5-14.0) % Plt Count (150-450) x10^3/uL MPV (7.5-11.0) fL Gran % (36.0-66.0) % Immature Gran % (Auto) (0.00-0.4) % Nucleat RBC Rel Count (0.00-0.1) % Eos # (Auto) (0-0.5) x10^3/uL Immature Gran # (Auto) (0.00-0.03) x10^3u/L Absolute Lymphs (auto) (1.0-4.6) x10^3/uL Absolute Monos (auto) (0.0-1.3) x10^3/uL Absolute Nucleated RBC (0.00-0.01) x10^3u/L Lymphocytes % (24.0-44.0) % Monocytes % (0.0-12.0) % Eosinophils % (0.00-5.0) % Basophils % (0.0-0.4) % Absolute Granulocytes (1.4-6.9) x10^3/uL Basophils # (0-0.4) x10^3/uL Sodium (135-145) mmol/L Potassium (3.5-5.1) mmol/L Chloride (98-107) mmol/L Carbon Dioxide (22-30) mmol/L Anion Gap (5-15) MEQ/L BUN (7-17) mg/dL Creatinine (0.52-1.04) mg/dL Estimated GFR ML/MIN Glucose (74-106) mg/dL POC Glucometer 144 H (74 to 106) mg/dL Calcium (8.4-10.2) mg/dL Total Bilirubin (0.2-1.3) mg/dL AST (14-36) U/L ALT (0-35) U/L Alkaline Phosphatase (38-126) U/L Troponin I (0.000-0.034) ng/mL NT-Pro-B Natriuret Pep (<300) pg/mL Serum Total Protein (6.3-8.2) g/dL Albumin (3.5-5.0) g/dL Urine Color Yellow (Yellow) Urine Appearance Clear (Clear) Urine pH 5.5 (4.6-8.0) Ur Specific [place] 1.010 (1.005-1.030) Urine Protein Trace A (Negative) Urine Glucose (UA) Negative (Negative) mg/dL Urine Ketones Negative (Negative) Urine Blood Negative (Negative) Urine Nitrite Negative (Negative) Urine Bilirubin Negative (Negative) Urine Urobilinogen 0.2 (0.2) mg/dL Ur Leukocyte Esterase Negative (Negative) U Hyaline Cast (Auto) NONE SEEN (0-2) /LPF Urine Microscopic RBC 0-2 (0-5) /HPF Urine Microscopic WBC 0-2 (0-5) /HPF Ur Epithelial Cells None Seen (None Seen) /HPF Urine Bacteria None Seen (None Seen) /HPF Urine Culture Reflexed NO (NO) Assessment/Plan (1) Atrial fibrillation with rapid ventricular response Current Visit: Yes Status: Acute Assessment & Plan: -Monitor on Telemetry -Cardizem drip started in ED, will continue, monitor BP closely -CMP, Mg, TSH -CXR -ECHO -rate control to target goal HR <85 bpm at rest if symptomatic, goal HR <110 bpm if asymptomatic -on Eliquis will continue -optimize electrolytes for goal of K at 4 and magnesium at 2 Code(s): I48.91 - UNSPECIFIED ATRIAL FIBRILLATION (2) CHF (congestive heart failure) Current Visit: Yes Status: Acute Assessment & Plan: -BNP at 4680 -CXR -appears euvolemic -continue home medications -Echo -Most recent echo 11/29/21 Findings: EF 65% IMPRESSION: 1) MILD TO MODERATE CONCENTRIC LEFT VENTRICULAR HYPERTROPHY WITH NORMAL LEFT VENTRICULAR SYSTOLIC FUNCTION. 2) CALCIFIED MITRAL VALVE APPARATUS WITHOUT EVIDENCE OF ANY STENOSIS. 3) CALCIFIC AORTIC SCLEROSIS WITH EVIDENCE OF MILD STENOSIS. 4) MILD TO MODERATE RIGHT VENTRICULAR ENLARGEMENT. 5) MILD AORTIC INSUFFICIENCY. 6) MILD TO MODERATE MITRAL REGURGITATION. 7) MILD TO MODERATE TRICUSPID REGURGITATION WITH EVIDENCE OF MILD TO MODERATE PULMONARY HYPERTENSION WITH PEAK SYSTOLIC PRESSURE OF 37 MM OF MERCURY. -Supplemental oxygen with target spow > 88-92% -elevate HOB Code(s): I50.9 - HEART FAILURE, UNSPECIFIED (3) HLD (hyperlipidemia) Current Visit: Yes Status: Acute Assessment & Plan: -continue statin Code(s): E78.5 - HYPERLIPIDEMIA, UNSPECIFIED (4) HTN (hypertension) Current Visit: Yes Status: Acute Assessment & Plan: -stable, monitor closely on cardizem drip Code(s): I10 - ESSENTIAL (PRIMARY) HYPERTENSION (5) COPD (chronic obstructive pulmonary disease) Current Visit: Yes Status: Acute Assessment & Plan: -CXR -Home oxygen is 2L prn, she is on RA during interview with spo2 @ 97% -RT eval -nebs/inh -Supplemental oxygen as needed for goal spo2 >88-92% (6) Diabetes mellitus Current Visit: Yes Status: Acute Assessment & Plan: -SSI -ADA diet -glargine/lispro VTE: eliquis Dispo: 1-2 days Next of Kin: Alexis Long [phone] Code(s): E11.9 - TYPE 2 DIABETES MELLITUS WITHOUT COMPLICATIONS <JOSHUA GONZALEZ - Last Filed: 06/24/23 22:50> History of Present Illness - Chief Complaint History of Present Illness: is a 73 year old female. - Physical Exam Vital Signs: Vital Signs - 24 hr Temp Pulse Pulse Resp BP BP Pulse Ox 06/24/23 22:10 53 L 16 127/62 06/24/23 20:00 97.3 F 55 L 17 134/69 98 06/24/23 19:50 55 L 25 H 06/24/23 19:40 53 L 22 06/24/23 19:30 52 L 19 99 06/24/23 19:21 93 L 06/24/23 19:20 52 L 23 99 06/24/23 19:10 52 L 25 H 95 06/24/23 19:00 66 19 06/24/23 18:50 52 L 23 99 06/24/23 18:40 72 17 81 L 06/24/23 18:30 51 L 21 98 06/24/23 18:20 50 L 19 98 06/24/23 18:10 51 L 23 99 06/24/23 18:03 60 15 06/24/23 17:36 60 15 142/65 06/24/23 17:01 58 L 14 148/58 06/24/23 16:30 97.3 F 112 H 20 116/96 93 L 06/24/23 16:01 118 H 19 115/57 97 06/24/23 15:31 120 H 20 148/77 95 06/24/23 15:01 93 H 23 99/73 97 06/24/23 14:30 123 H 18 104/83 96 03/19/24 14:19 104 H 14 118/92 97 06/24/23 14:14 160 H 22 102/74 06/24/23 14:00 116 H 13 102/74 06/24/23 13:49 97 06/24/23 13:36 137 H 22 144/109 97 06/24/23 13:32 170 H 16 116/64 06/24/23 13:30 98 H 20 128/110 98 06/24/23 13:05 151 H 16 116/64 06/24/23 13:00 129 H 19 116/64 97 06/24/23 12:54 97.1 F 139 H 19 110/88 97 06/24/23 12:47 137 H 20 110/88 06/24/23 12:41 144 H 06/24/23 12:31 97 06/24/23 12:10 124 H 92/71 92 L 06/24/23 12:00 118 H 136/72 97 06/24/23 11:52 114 H 79/54 97 06/24/23 11:40 124 H 126/78 98 06/24/23 11:34 122 H 139/73 06/24/23 11:33 113 H 06/24/23 11:32 142 H 06/24/23 11:25 102 H 133/62 06/24/23 11:24 90 20 99 06/24/23 11:20 160 H 20 97 06/24/23 10:54 155 H 06/24/23 10:41 96 06/24/23 10:40 97.0 F 159 H 18 152/99 97 Results - Labs Lab/Micro Results: Lab Results-Last 24 Hours 06/24/23 06/24/23 06/24/23 Range/Units 10:52 10:52 10:52 WBC 7.8 (4.0-10.5) x10^3/uL RBC 4.94 (4.1-5.4) x10^6/uL Hgb 15.0 (12.0-16.0) g/dL Hct 47.0 (35-47) % MCV 95.1 (78-100) fL MCH 30.4 (26-32) pg MCHC 31.9 L (32-36) g/dL RDW 13.9 (11.5-14.0) % Plt Count 264 (150-450) x10^3/uL MPV 10.5 (7.5-11.0) fL Gran % 49.8 (36.0-66.0) % Immature Gran % (Auto) 0.1 (0.00-0.4) % Nucleat RBC Rel Count 0.0 (0.00-0.1) % Eos # (Auto) 0.07 (0-0.5) x10^3/uL Immature Gran # (Auto) 0.01 (0.00-0.03) x10^3u/L Absolute Lymphs (auto) 3.15 (1.0-4.6) x10^3/uL Absolute Monos (auto) 0.65 (0.0-1.3) x10^3/uL Absolute Nucleated RBC 0.00 (0.00-0.01) x10^3u/L Lymphocytes % 40.3 (24.0-44.0) % Monocytes % 8.3 (0.0-12.0) % Eosinophils % 0.9 (0.00-5.0) % Basophils % 0.6 (0.0-0.4) % Absolute Granulocytes 3.88 (1.4-6.9) x10^3/uL Basophils # 0.05 (0-0.4) x10^3/uL Sodium 142 (135-145) mmol/L Potassium 4.2 (3.5-5.1) mmol/L Chloride 109 H (98-107) mmol/L Carbon Dioxide 22 (22-30) mmol/L Anion Gap 15.4 H (5-15) MEQ/L BUN 22 H (7-17) mg/dL Creatinine 0.88 (0.52-1.04) mg/dL Estimated GFR 68.9 ML/MIN Glucose 147 H (74-106) mg/dL POC Glucometer (74 to 106) mg/dL Hemoglobin A1c (4.5-6.0) % Calcium 9.4 (8.4-10.2) mg/dL Magnesium (1.6-2.3) mg/dL Total Bilirubin 0.40 (0.2-1.3) mg/dL AST 21 (14-36) U/L ALT 16 (0-35) U/L Alkaline Phosphatase 66 (38-126) U/L Troponin I 0.015 (0.000-0.034) ng/mL NT-Pro-B Natriuret Pep 4680 (<300) pg/mL Serum Total Protein 7.0 (6.3-8.2) g/dL Albumin 4.1 (3.5-5.0) g/dL TSH 3rd Generation (0.47-4.68) mIU/L Urine Color (Yellow) Urine Appearance (Clear) Urine pH (4.6-8.0) Ur Specific [place] (1.005-1.030) Urine Protein (Negative) Urine Glucose (UA) (Negative) mg/dL Urine Ketones (Negative) Urine Blood (Negative) Urine Nitrite (Negative) Urine Bilirubin (Negative) Urine Urobilinogen (0.2) mg/dL Ur Leukocyte Esterase (Negative) U Hyaline Cast (Auto) (0-2) /LPF Urine Microscopic RBC (0-5) /HPF Urine Microscopic WBC (0-5) /HPF Ur Epithelial Cells (None Seen) /HPF Urine Bacteria (None Seen) /HPF Urine Culture Reflexed (NO) 06/24/23 06/24/23 06/24/23 Range/Units 10:52 10:52 11:35 WBC (4.0-10.5) x10^3/uL RBC (4.1-5.4) x10^6/uL Hgb (12.0-16.0) g/dL Hct (35-47) % MCV (78-100) fL MCH (26-32) pg MCHC (32-36) g/dL RDW (11.5-14.0) % Plt Count (150-450) x10^3/uL MPV (7.5-11.0) fL Gran % (36.0-66.0) % Immature Gran % (Auto) (0.00-0.4) % Nucleat RBC Rel Count (0.00-0.1) % Eos # (Auto) (0-0.5) x10^3/uL Immature Gran # (Auto) (0.00-0.03) x10^3u/L Absolute Lymphs (auto) (1.0-4.6) x10^3/uL Absolute Monos (auto) (0.0-1.3) x10^3/uL Absolute Nucleated RBC (0.00-0.01) x10^3u/L Lymphocytes % (24.0-44.0) % Monocytes % (0.0-12.0) % Eosinophils % (0.00-5.0) % Basophils % (0.0-0.4) % Absolute Granulocytes (1.4-6.9) x10^3/uL Basophils # (0-0.4) x10^3/uL Sodium (135-145) mmol/L Potassium (3.5-5.1) mmol/L Chloride (98-107) mmol/L Carbon Dioxide (22-30) mmol/L Anion Gap (5-15) MEQ/L BUN (7-17) mg/dL Creatinine (0.52-1.04) mg/dL Estimated GFR ML/MIN Glucose (74-106) mg/dL POC Glucometer (74 to 106) mg/dL Hemoglobin A1c 5.81 (4.5-6.0) % Calcium (8.4-10.2) mg/dL Magnesium 1.9 (1.6-2.3) mg/dL Total Bilirubin (0.2-1.3) mg/dL AST (14-36) U/L ALT (0-35) U/L Alkaline Phosphatase (38-126) U/L Troponin I (0.000-0.034) ng/mL NT-Pro-B Natriuret Pep (<300) pg/mL Serum Total Protein (6.3-8.2) g/dL Albumin (3.5-5.0) g/dL TSH 3rd Generation 2.040 (0.47-4.68) mIU/L Urine Color Yellow (Yellow) Urine Appearance Clear (Clear) Urine pH 5.5 (4.6-8.0) Ur Specific [place] 1.010 (1.005-1.030) Urine Protein Trace A (Negative) Urine Glucose (UA) Negative (Negative) mg/dL Urine Ketones Negative (Negative) Urine Blood Negative (Negative) Urine Nitrite Negative (Negative) Urine Bilirubin Negative (Negative) Urine Urobilinogen 0.2 (0.2) mg/dL Ur Leukocyte Esterase Negative (Negative) U Hyaline Cast (Auto) NONE SEEN (0-2) /LPF Urine Microscopic RBC 0-2 (0-5) /HPF Urine Microscopic WBC 0-2 (0-5) /HPF Ur Epithelial Cells None Seen (None Seen) /HPF Urine Bacteria None Seen (None Seen) /HPF Urine Culture Reflexed NO (NO) 06/24/23 06/24/23 06/24/23 Range/Units 12:42 14:32 16:26 WBC (4.0-10.5) x10^3/uL RBC (4.1-5.4) x10^6/uL Hgb (12.0-16.0) g/dL Hct (35-47) % MCV (78-100) fL MCH (26-32) pg MCHC (32-36) g/dL RDW (11.5-14.0) % Plt Count (150-450) x10^3/uL MPV (7.5-11.0) fL Gran % (36.0-66.0) % Immature Gran % (Auto) (0.00-0.4) % Nucleat RBC Rel Count (0.00-0.1) % Eos # (Auto) (0-0.5) x10^3/uL Immature Gran # (Auto) (0.00-0.03) x10^3u/L Absolute Lymphs (auto) (1.0-4.6) x10^3/uL Absolute Monos (auto) (0.0-1.3) x10^3/uL Absolute Nucleated RBC (0.00-0.01) x10^3u/L Lymphocytes % (24.0-44.0) % Monocytes % (0.0-12.0) % Eosinophils % (0.00-5.0) % Basophils % (0.0-0.4) % Absolute Granulocytes (1.4-6.9) x10^3/uL Basophils # (0-0.4) x10^3/uL Sodium (135-145) mmol/L Potassium (3.5-5.1) mmol/L Chloride (98-107) mmol/L Carbon Dioxide (22-30) mmol/L Anion Gap (5-15) MEQ/L BUN (7-17) mg/dL Creatinine (0.52-1.04) mg/dL Estimated GFR ML/MIN Glucose (74-106) mg/dL POC Glucometer 144 H 207 H (74 to 106) mg/dL Hemoglobin A1c (4.5-6.0) % Calcium (8.4-10.2) mg/dL Magnesium (1.6-2.3) mg/dL Total Bilirubin (0.2-1.3) mg/dL AST (14-36) U/L ALT (0-35) U/L Alkaline Phosphatase (38-126) U/L Troponin I < 0.012 (0.000-0.034) ng/mL NT-Pro-B Natriuret Pep (<300) pg/mL Serum Total Protein (6.3-8.2) g/dL Albumin (3.5-5.0) g/dL TSH 3rd Generation (0.47-4.68) mIU/L Urine Color (Yellow) Urine Appearance (Clear) Urine pH (4.6-8.0) Ur Specific [place] (1.005-1.030) Urine Protein (Negative) Urine Glucose (UA) (Negative) mg/dL Urine Ketones (Negative) Urine Blood (Negative) Urine Nitrite (Negative) Urine Bilirubin (Negative) Urine Urobilinogen (0.2) mg/dL Ur Leukocyte Esterase (Negative) U Hyaline Cast (Auto) (0-2) /LPF Urine Microscopic RBC (0-5) /HPF Urine Microscopic WBC (0-5) /HPF Ur Epithelial Cells (None Seen) /HPF Urine Bacteria (None Seen) /HPF Urine Culture Reflexed (NO) 06/24/23 06/24/23 Range/Units 18:20 20:45 WBC (4.0-10.5) x10^3/uL RBC (4.1-5.4) x10^6/uL Hgb (12.0-16.0) g/dL Hct (35-47) % MCV (78-100) fL MCH (26-32) pg MCHC (32-36) g/dL RDW (11.5-14.0) % Plt Count (150-450) x10^3/uL MPV (7.5-11.0) fL Gran % (36.0-66.0) % Immature Gran % (Auto) (0.00-0.4) % Nucleat RBC Rel Count (0.00-0.1) % Eos # (Auto) (0-0.5) x10^3/uL Immature Gran # (Auto) (0.00-0.03) x10^3u/L Absolute Lymphs (auto) (1.0-4.6) x10^3/uL Absolute Monos (auto) (0.0-1.3) x10^3/uL Absolute Nucleated RBC (0.00-0.01) x10^3u/L Lymphocytes % (24.0-44.0) % Monocytes % (0.0-12.0) % Eosinophils % (0.00-5.0) % Basophils % (0.0-0.4) % Absolute Granulocytes (1.4-6.9) x10^3/uL Basophils # (0-0.4) x10^3/uL Sodium (135-145) mmol/L Potassium (3.5-5.1) mmol/L Chloride (98-107) mmol/L Carbon Dioxide (22-30) mmol/L Anion Gap (5-15) MEQ/L BUN (7-17) mg/dL Creatinine (0.52-1.04) mg/dL Estimated GFR ML/MIN Glucose (74-106) mg/dL POC Glucometer 166 H (74 to 106) mg/dL Hemoglobin A1c (4.5-6.0) % Calcium (8.4-10.2) mg/dL Magnesium (1.6-2.3) mg/dL Total Bilirubin (0.2-1.3) mg/dL AST (14-36) U/L ALT (0-35) U/L Alkaline Phosphatase (38-126) U/L Troponin I < 0.012 (0.000-0.034) ng/mL NT-Pro-B Natriuret Pep (<300) pg/mL Serum Total Protein (6.3-8.2) g/dL Albumin (3.5-5.0) g/dL TSH 3rd Generation (0.47-4.68) mIU/L Urine Color (Yellow) Urine Appearance (Clear) Urine pH (4.6-8.0) Ur Specific [place] (1.005-1.030) Urine Protein (Negative) Urine Glucose (UA) (Negative) mg/dL Urine Ketones (Negative) Urine Blood (Negative) Urine Nitrite (Negative) Urine Bilirubin (Negative) Urine Urobilinogen (0.2) mg/dL Ur Leukocyte Esterase (Negative) U Hyaline Cast (Auto) (0-2) /LPF Urine Microscopic RBC (0-5) /HPF Urine Microscopic WBC (0-5) /HPF Ur Epithelial Cells (None Seen) /HPF Urine Bacteria (None Seen) /HPF Urine Culture Reflexed (NO) Accuchecks Date 06/24/23 Date 06/24/23 Time 20:45 Time 16:15 - Radiology Impressions Radiology Exams & Impressions: Radiology Procedures Category Date Time Status CHEST 1 VIEW (PORTABLE) Stat Exams 06/24/23 13:28 Completed ECHO W/2D AND DOPPLER [US] Stat Exams 06/24/23 13:06 Taken - Other Procedures and Tests Respiratory Therapy 06/24/23 13:06 EKG REPEAT IN AM 06/24/23 21:00 BiPap/CPAP ROUTINE Oxygen NASAL CANNULA 2 lpm MARIO Encounter - MARIO Encounter Attestation MARIO Encounter Attestation: "IhavepersonallyseenandexaminedCCODY,TIO DONIS andhavediscussed pertinent aspects of their care with Jodie Asif agree with the history, physical exam (any modifications based on my personal exam will be noted below), assessment, and plan as outlined in original note. Please see immediately below for my summary of findings and additional assessment and plan along with any meaningful corrections/explanations to the Subjective/Objective portions of the MARIO note will be noted." My portion of the encounter took place via telemedicine. -Afib with RVR with history of Afib. Initially on IV cardizen, then started on oral amiodarone per her rn urology. Converted to NSR with HR in 50s. Already on anticoagulation with eliquis.
[2023-06-24] MEDS ORDERED: Zofran 4 MG/2 ML VIAL IV PRN (13:06)
--- NOTE | 2023-06-24 13:39 | XRAY ---
Indication: Short of breath. Comparison: January 09, 2023 Portable chest unchanged again demonstrating minimal left mid to lower lung discoid atelectasis/scarring. Remaining heart and lungs unremarkable. Bony thorax intact again with osteopenia and degenerative changes. Impression: Continued nonacute chest with chronic features.
[2023-06-24 14:51] LABS: MAGNESIUM 1.9 mg/dL (1.6-2.3); TSH, 3RD Generation 2.04 mIU/L (0.47-4.68)
[2023-06-24] MEDS: NYSTOP POWDER 15 GM TP SCH (14:56)
[2023-06-24] MEDS: Lopressor 50 MG PO SCH (16:08)
[2023-06-24] MEDS: Cordarone 150 MG/3 ML Injection*** 150 MG in D5w 100ML Mini Bag 100 ML 100 ML IV ONE (16:09)
[2023-06-24] MEDS: PHARMACY DOSING REQUEST MC ONE (16:21)
[2023-06-24] MEDS: NEXTERONE 360 MG/200 ML BAG 360 MG/200 ML PLAST..BAG IV SCH (16:25)
[2023-06-24] MEDS: TYLENOL 325 MG PO PRN (16:28)
[2023-06-24] MEDS: HUMALOG SQ PRN (16:52)
[2023-06-24] MEDS: Cordarone 200 MG PO SCH (17:35)
[2023-06-24] MEDS ORDERED: MELATONIN PO PRN (20:45)
[2023-06-24] MEDS ORDERED: MELATONIN PO ONE (21:38)
[2023-06-24] MEDS: ULTRAM 50 MG PO ONE (21:40)
[2023-06-24] MEDS: ELIQUIS 2.5 MG TABLET PO SCH (21:41)
[2023-06-24] MEDS: Lasix 20 MG/2 ML IV SCH (21:42)
[2023-06-24] MEDS: Lantus Insulin SQ SCH (21:46)
[2023-06-24] MEDS: MELATONIN PO PRN (21:46)
[2023-06-25 04:50] LABS: BASOPHIL % 0.4 % (0.0-0.4); Basophil (Absolute #) 0.03 x10^3/uL (0-0.4); Eosinophil % 1.9 % (0.00-5.0); Eosinophil (Absolute #) 0.13 x10^3/uL (0-0.5); Hematocrit 38.7 % (35-47); Hemoglobin 12.2 g/dL (12.0-16.0); IMMATURE GRAN # 0.01 x10^3u/L (0.00-0.03); IMMATURE GRAN % 0.1 % (0.00-0.4); Lymphocyte (Absolute #) 3.17 x10^3/uL (1.0-4.6); Lymphocytes % 46.3 % (24.0-44.0); Mean Cell Volume 95.6 fL (78-100); Mean Corpuscular Hemoglobin 30.1 pg (26-32); Mean Corpuscular Hgb Concent. 31.5 g/dL (32-36); Mean Platelet Volume 10.3 fL (7.5-11.0); Monocyte (Absolute #) 0.61 x10^3/uL (0.0-1.3); Monocytes % 8.9 % (0.0-12.0); Neutrophil % 42.4 % (36.0-66.0); Platelet Count 253 x10^3/uL (150-450); Red Blood Count 4.05 x10^6/uL (4.1-5.4); Red Cell Distribution Width 14.5 % (11.5-14.0); White Blood Count 6.9 x10^3/uL (4.0-10.5)
[2023-06-25 05:09] LABS: ALBUMIN 3.2 g/dL (3.5-5.0); BILIRUBIN,TOTAL 0.3 mg/dL (0.2-1.3); Calcium 8.6 mg/dL (8.4-10.2); Creatinine 1 0.91 mg/dL (0.52-1.04); EST GLOMERULAR FILTRATION RATE 66.2 ML/MIN; MAGNESIUM 1.8 mg/dL (1.6-2.3); Potassium 3.7 mmol/L (3.5-5.1); Total Protein 5.7 g/dL (6.3-8.2)
[2023-06-25 09:16] VITALS: O2SAT 96
[2023-06-25] MEDS ORDERED: LASIX 20 MG PO SCH (10:00)
[2023-06-25] MEDS: LASIX 20 MG PO SCH (10:05)
[2023-06-25] MEDS: Cordarone 200 MG PO SCH (10:06)
[2023-06-25] MEDS: Lopressor 25MG Tab PO SCH (10:08)
--- NOTE | 2023-06-25 11:20 | PCM.DS ---
Discharge Summary Date of Admission: 06/24/23 12:32 Date of Discharge: 06/25/23 Admitting Physician: JOSHUA GONZALEZ MD Consults: Consults on Case 06/24/23 13:06 Notify Pile Trimmer of Admit ROUTINE Primary Care Provider: CECELIA ROMANO DO Allergies Allergies morphine Allergy (Severe, Verified 06/24/23 10:50) anaphylaxis pt went into respiratory failure and acute renal failure the last time she had morphine. "I was in a coma for a week" adhesive Allergy (Mild, Verified 06/24/23 10:50) Blisters aspirin Allergy (Verified 06/24/23 10:50) Difficulty Breathing PT STATES THAT SHE CAN TAKE ASPIRIN 81 MG BUT NOTHING HIGHER IN DOSE. Penicillins Allergy (Verified 06/24/23 10:50) Rash povidone-iodine [From Betadine] Allergy (Verified 06/24/23 10:50) BLISTERES soap [From Betadine] Allergy (Verified 06/24/23 10:50) Blisters Hospital Summary - Hospital Course Hospital Course: is a 72 year old female with a history of diabetes mellitus, hypertension, hyperlipidemia, atrial fibrillation, congestive heart failure, chronic respiratory failure secondary to COPD (on 2L NC), who presented to ED 06/24/23 under the advisement of the provider at [facility] for complaints of intermittent fast heart rate and chest pressure. Onset approximately 1 week ago. She states that the pressure is mid-sternal with no alleviating/aggravating factors. She also reports left jaw pain radiating down her left arm to her fingers. She denies shortness of breath, chest pain, nausea, vomiting, or diaphoresis. Dr. Murphy is her computer lab para professional, she has been non-compliant with medications in the past but states she has been compliant with coreg and eliquis since her last hospitalization. In ED patient, patient was tachycardic and hypertensive. EKG showing AFIB RVR. Lab finding remarkable for BNP at 4680. Initial troponin x 1 negative. Patient started on cardizem drip and given fluid bolus. Cardiology consulted Dr. Murphy (patient's computer lab para professional) HR is controlled. Cardizem drip discontinued. Cardiology has cleared patient for discharge and has started her on amiodarone 200mg BID x 1 week, then 200mg daily there after. Metoprolol 25mg bid. Lasix 20mg daily. Continue home Eliquis. She is to follow up next week. Discharge Note New Diagnosis: AFIB RVR New Medications: Amiodarone/metoprolol Follow Up: cardiology/pcp Latest Assessment & Plan (1) Atrial fibrillation with rapid ventricular response Current Visit: Yes Status: Acute Assessment & Plan: -Monitor on Telemetry -Cardizem drip started in ED, will continue, monitor BP closely -CMP, Mg, TSH -CXR -ECHO -rate control to target goal HR <85 bpm at rest if symptomatic, goal HR <110 bpm if asymptomatic -on Eliquis will continue -optimize electrolytes for goal of K at 4 and magnesium at 2 Code(s): I48.91 - UNSPECIFIED ATRIAL FIBRILLATION (2) CHF (congestive heart failure) Current Visit: Yes Status: Acute Assessment & Plan: -BNP at 4680 -CXR -appears euvolemic -continue home medications -Echo -Most recent echo 11/29/21 Findings: EF 65% IMPRESSION: 1) MILD TO MODERATE CONCENTRIC LEFT VENTRICULAR HYPERTROPHY WITH NORMAL LEFT VENTRICULAR SYSTOLIC FUNCTION. 2) CALCIFIED MITRAL VALVE APPARATUS WITHOUT EVIDENCE OF ANY STENOSIS. 3) CALCIFIC AORTIC SCLEROSIS WITH EVIDENCE OF MILD STENOSIS. 4) MILD TO MODERATE RIGHT VENTRICULAR ENLARGEMENT. 5) MILD AORTIC INSUFFICIENCY. 6) MILD TO MODERATE MITRAL REGURGITATION. 7) MILD TO MODERATE TRICUSPID REGURGITATION WITH EVIDENCE OF MILD TO MODERATE PULMONARY HYPERTENSION WITH PEAK SYSTOLIC PRESSURE OF 37 MM OF MERCURY. -Supplemental oxygen with target spow > 88-92% -elevate HOB Code(s): I50.9 - HEART FAILURE, UNSPECIFIED (3) HLD (hyperlipidemia) Current Visit: Yes Status: Acute Assessment & Plan: -continue statin Code(s): E78.5 - HYPERLIPIDEMIA, UNSPECIFIED (4) HTN (hypertension) Current Visit: Yes Status: Acute Assessment & Plan: -stable, monitor closely on cardizem drip Code(s): I10 - ESSENTIAL (PRIMARY) HYPERTENSION (5) COPD (chronic obstructive pulmonary disease) Current Visit: Yes Status: Acute Assessment & Plan: -CXR -Home oxygen is 2L prn, she is on RA during interview with spo2 @ 97% -RT eval -nebs/inh -Supplemental oxygen as needed for goal spo2 >88-92% (6) Diabetes mellitus Current Visit: Yes Status: Acute Assessment & Plan: -SSI -ADA diet -glargine/lispro I spent 35 minutes [id number] with the patient on the day of discharge performing discharge exam, discussing hospital stay and discharge instructions with patient and caregivers, preparation of discharge records, prescriptions & referral forms and addressing any questions/concerns the patient had as documented above. - Vitals & Intake/Output Vital Signs: Vital Signs Temperature 97.3 F 06/25/23 09:02 Pulse Rate 52 L 06/25/23 09:02 Respiratory Rate 19 06/25/23 09:02 Blood Pressure 148/66 06/25/23 09:02 O2 Sat by Pulse Oximetry 96 06/25/23 09:02 Intake & Output: Intake & Output 06/22/23 06/23/23 06/24/23 06/25/23 11:59 11:59 11:59 11:59 Intake Total 2775 Output Total 1400 Balance 1375 Weight 90.3 kg 91.2 kg - Lab Result Diagrams: 06/25/23 04:40 06/25/23 04:40 Lab Results-Last 24 Hrs: Lab Results-Last 24 Hours 06/24/23 06/24/23 06/24/23 Range/Units 10:52 10:52 10:52 WBC (4.0-10.5) x10^3/uL RBC (4.1-5.4) x10^6/uL Hgb (12.0-16.0) g/dL Hct (35-47) % MCV (78-100) fL MCH (26-32) pg MCHC (32-36) g/dL RDW (11.5-14.0) % Plt Count (150-450) x10^3/uL MPV (7.5-11.0) fL Gran % (36.0-66.0) % Immature Gran % (Auto) (0.00-0.4) % Nucleat RBC Rel Count (0.00-0.1) % Eos # (Auto) (0-0.5) x10^3/uL Immature Gran # (Auto) (0.00-0.03) x10^3u/L Absolute Lymphs (auto) (1.0-4.6) x10^3/uL Absolute Monos (auto) (0.0-1.3) x10^3/uL Absolute Nucleated RBC (0.00-0.01) x10^3u/L Lymphocytes % (24.0-44.0) % Monocytes % (0.0-12.0) % Eosinophils % (0.00-5.0) % Basophils % (0.0-0.4) % Absolute Granulocytes (1.4-6.9) x10^3/uL Basophils # (0-0.4) x10^3/uL Sodium 142 (135-145) mmol/L Potassium 4.2 (3.5-5.1) mmol/L Chloride 109 H (98-107) mmol/L Carbon Dioxide 22 (22-30) mmol/L Anion Gap 15.4 H (5-15) MEQ/L BUN 22 H (7-17) mg/dL Creatinine 0.88 (0.52-1.04) mg/dL Estimated GFR 68.9 ML/MIN Glucose 147 H (74-106) mg/dL POC Glucometer (74 to 106) mg/dL Hemoglobin A1c (4.5-6.0) % Calcium 9.4 (8.4-10.2) mg/dL Magnesium 1.9 (1.6-2.3) mg/dL Total Bilirubin 0.40 (0.2-1.3) mg/dL AST 21 (14-36) U/L ALT 16 (0-35) U/L Alkaline Phosphatase 66 (38-126) U/L Troponin I 0.015 (0.000-0.034) ng/mL NT-Pro-B Natriuret Pep 4680 (<300) pg/mL Serum Total Protein 7.0 (6.3-8.2) g/dL Albumin 4.1 (3.5-5.0) g/dL TSH 3rd Generation 2.040 (0.47-4.68) mIU/L Urine Color (Yellow) Urine Appearance (Clear) Urine pH (4.6-8.0) Ur Specific [place] (1.005-1.030) Urine Protein (Negative) Urine Glucose (UA) (Negative) mg/dL Urine Ketones (Negative) Urine Blood (Negative) Urine Nitrite (Negative) Urine Bilirubin (Negative) Urine Urobilinogen (0.2) mg/dL Ur Leukocyte Esterase (Negative) U Hyaline Cast (Auto) (0-2) /LPF Urine Microscopic RBC (0-5) /HPF Urine Microscopic WBC (0-5) /HPF Ur Epithelial Cells (None Seen) /HPF Urine Bacteria (None Seen) /HPF Urine Culture Reflexed (NO) 06/24/23 06/24/23 06/24/23 Range/Units 10:52 11:35 12:42 WBC (4.0-10.5) x10^3/uL RBC (4.1-5.4) x10^6/uL Hgb (12.0-16.0) g/dL Hct (35-47) % MCV (78-100) fL MCH (26-32) pg MCHC (32-36) g/dL RDW (11.5-14.0) % Plt Count (150-450) x10^3/uL MPV (7.5-11.0) fL Gran % (36.0-66.0) % Immature Gran % (Auto) (0.00-0.4) % Nucleat RBC Rel Count (0.00-0.1) % Eos # (Auto) (0-0.5) x10^3/uL Immature Gran # (Auto) (0.00-0.03) x10^3u/L Absolute Lymphs (auto) (1.0-4.6) x10^3/uL Absolute Monos (auto) (0.0-1.3) x10^3/uL Absolute Nucleated RBC (0.00-0.01) x10^3u/L Lymphocytes % (24.0-44.0) % Monocytes % (0.0-12.0) % Eosinophils % (0.00-5.0) % Basophils % (0.0-0.4) % Absolute Granulocytes (1.4-6.9) x10^3/uL Basophils # (0-0.4) x10^3/uL Sodium (135-145) mmol/L Potassium (3.5-5.1) mmol/L Chloride (98-107) mmol/L Carbon Dioxide (22-30) mmol/L Anion Gap (5-15) MEQ/L BUN (7-17) mg/dL Creatinine (0.52-1.04) mg/dL Estimated GFR ML/MIN Glucose (74-106) mg/dL POC Glucometer 144 H (74 to 106) mg/dL Hemoglobin A1c 5.81 (4.5-6.0) % Calcium (8.4-10.2) mg/dL Magnesium (1.6-2.3) mg/dL Total Bilirubin (0.2-1.3) mg/dL AST (14-36) U/L ALT (0-35) U/L Alkaline Phosphatase (38-126) U/L Troponin I (0.000-0.034) ng/mL NT-Pro-B Natriuret Pep (<300) pg/mL Serum Total Protein (6.3-8.2) g/dL Albumin (3.5-5.0) g/dL TSH 3rd Generation (0.47-4.68) mIU/L Urine Color Yellow (Yellow) Urine Appearance Clear (Clear) Urine pH 5.5 (4.6-8.0) Ur Specific [place] 1.010 (1.005-1.030) Urine Protein Trace A (Negative) Urine Glucose (UA) Negative (Negative) mg/dL Urine Ketones Negative (Negative) Urine Blood Negative (Negative) Urine Nitrite Negative (Negative) Urine Bilirubin Negative (Negative) Urine Urobilinogen 0.2 (0.2) mg/dL Ur Leukocyte Esterase Negative (Negative) U Hyaline Cast (Auto) NONE SEEN (0-2) /LPF Urine Microscopic RBC 0-2 (0-5) /HPF Urine Microscopic WBC 0-2 (0-5) /HPF Ur Epithelial Cells None Seen (None Seen) /HPF Urine Bacteria None Seen (None Seen) /HPF Urine Culture Reflexed NO (NO) 06/24/23 06/24/23 06/24/23 Range/Units 14:32 16:26 18:20 WBC (4.0-10.5) x10^3/uL RBC (4.1-5.4) x10^6/uL Hgb (12.0-16.0) g/dL Hct (35-47) % MCV (78-100) fL MCH (26-32) pg MCHC (32-36) g/dL RDW (11.5-14.0) % Plt Count (150-450) x10^3/uL MPV (7.5-11.0) fL Gran % (36.0-66.0) % Immature Gran % (Auto) (0.00-0.4) % Nucleat RBC Rel Count (0.00-0.1) % Eos # (Auto) (0-0.5) x10^3/uL Immature Gran # (Auto) (0.00-0.03) x10^3u/L Absolute Lymphs (auto) (1.0-4.6) x10^3/uL Absolute Monos (auto) (0.0-1.3) x10^3/uL Absolute Nucleated RBC (0.00-0.01) x10^3u/L Lymphocytes % (24.0-44.0) % Monocytes % (0.0-12.0) % Eosinophils % (0.00-5.0) % Basophils % (0.0-0.4) % Absolute Granulocytes (1.4-6.9) x10^3/uL Basophils # (0-0.4) x10^3/uL Sodium (135-145) mmol/L Potassium (3.5-5.1) mmol/L Chloride (98-107) mmol/L Carbon Dioxide (22-30) mmol/L Anion Gap (5-15) MEQ/L BUN (7-17) mg/dL Creatinine (0.52-1.04) mg/dL Estimated GFR ML/MIN Glucose (74-106) mg/dL POC Glucometer 207 H (74 to 106) mg/dL Hemoglobin A1c (4.5-6.0) % Calcium (8.4-10.2) mg/dL Magnesium (1.6-2.3) mg/dL Total Bilirubin (0.2-1.3) mg/dL AST (14-36) U/L ALT (0-35) U/L Alkaline Phosphatase (38-126) U/L Troponin I < 0.012 < 0.012 (0.000-0.034) ng/mL NT-Pro-B Natriuret Pep (<300) pg/mL Serum Total Protein (6.3-8.2) g/dL Albumin (3.5-5.0) g/dL TSH 3rd Generation (0.47-4.68) mIU/L Urine Color (Yellow) Urine Appearance (Clear) Urine pH (4.6-8.0) Ur Specific [place] (1.005-1.030) Urine Protein (Negative) Urine Glucose (UA) (Negative) mg/dL Urine Ketones (Negative) Urine Blood (Negative) Urine Nitrite (Negative) Urine Bilirubin (Negative) Urine Urobilinogen (0.2) mg/dL Ur Leukocyte Esterase (Negative) U Hyaline Cast (Auto) (0-2) /LPF Urine Microscopic RBC (0-5) /HPF Urine Microscopic WBC (0-5) /HPF Ur Epithelial Cells (None Seen) /HPF Urine Bacteria (None Seen) /HPF Urine Culture Reflexed (NO) 06/24/23 06/25/23 06/25/23 Range/Units 20:45 04:40 04:40 WBC 6.9 (4.0-10.5) x10^3/uL RBC 4.05 L (4.1-5.4) x10^6/uL Hgb 12.2 (12.0-16.0) g/dL Hct 38.7 (35-47) % MCV 95.6 (78-100) fL MCH 30.1 (26-32) pg MCHC 31.5 L (32-36) g/dL RDW 14.5 H (11.5-14.0) % Plt Count 253 (150-450) x10^3/uL MPV 10.3 (7.5-11.0) fL Gran % 42.4 (36.0-66.0) % Immature Gran % (Auto) 0.1 (0.00-0.4) % Nucleat RBC Rel Count 0.0 (0.00-0.1) % Eos # (Auto) 0.13 (0-0.5) x10^3/uL Immature Gran # (Auto) 0.01 (0.00-0.03) x10^3u/L Absolute Lymphs (auto) 3.17 (1.0-4.6) x10^3/uL Absolute Monos (auto) 0.61 (0.0-1.3) x10^3/uL Absolute Nucleated RBC 0.00 (0.00-0.01) x10^3u/L Lymphocytes % 46.3 H (24.0-44.0) % Monocytes % 8.9 (0.0-12.0) % Eosinophils % 1.9 (0.00-5.0) % Basophils % 0.4 (0.0-0.4) % Absolute Granulocytes 2.90 (1.4-6.9) x10^3/uL Basophils # 0.03 (0-0.4) x10^3/uL Sodium 140 (135-145) mmol/L Potassium 3.7 (3.5-5.1) mmol/L Chloride 108 H (98-107) mmol/L Carbon Dioxide 24 (22-30) mmol/L Anion Gap 11.0 (5-15) MEQ/L BUN 24 H (7-17) mg/dL Creatinine 0.91 (0.52-1.04) mg/dL Estimated GFR 66.2 ML/MIN Glucose 102 (74-106) mg/dL POC Glucometer 166 H (74 to 106) mg/dL Hemoglobin A1c (4.5-6.0) % Calcium 8.6 (8.4-10.2) mg/dL Magnesium 1.8 (1.6-2.3) mg/dL Total Bilirubin 0.30 (0.2-1.3) mg/dL AST 15 (14-36) U/L ALT 13 (0-35) U/L Alkaline Phosphatase 54 (38-126) U/L Troponin I (0.000-0.034) ng/mL NT-Pro-B Natriuret Pep (<300) pg/mL Serum Total Protein 5.7 L (6.3-8.2) g/dL Albumin 3.2 L (3.5-5.0) g/dL TSH 3rd Generation (0.47-4.68) mIU/L Urine Color (Yellow) Urine Appearance (Clear) Urine pH (4.6-8.0) Ur Specific [place] (1.005-1.030) Urine Protein (Negative) Urine Glucose (UA) (Negative) mg/dL Urine Ketones (Negative) Urine Blood (Negative) Urine Nitrite (Negative) Urine Bilirubin (Negative) Urine Urobilinogen (0.2) mg/dL Ur Leukocyte Esterase (Negative) U Hyaline Cast (Auto) (0-2) /LPF Urine Microscopic RBC (0-5) /HPF Urine Microscopic WBC (0-5) /HPF Ur Epithelial Cells (None Seen) /HPF Urine Bacteria (None Seen) /HPF Urine Culture Reflexed (NO) 06/25/23 06/25/23 Range/Units 07:05 11:11 WBC (4.0-10.5) x10^3/uL RBC (4.1-5.4) x10^6/uL Hgb (12.0-16.0) g/dL Hct (35-47) % MCV (78-100) fL MCH (26-32) pg MCHC (32-36) g/dL RDW (11.5-14.0) % Plt Count (150-450) x10^3/uL MPV (7.5-11.0) fL Gran % (36.0-66.0) % Immature Gran % (Auto) (0.00-0.4) % Nucleat RBC Rel Count (0.00-0.1) % Eos # (Auto) (0-0.5) x10^3/uL Immature Gran # (Auto) (0.00-0.03) x10^3u/L Absolute Lymphs (auto) (1.0-4.6) x10^3/uL Absolute Monos (auto) (0.0-1.3) x10^3/uL Absolute Nucleated RBC (0.00-0.01) x10^3u/L Lymphocytes % (24.0-44.0) % Monocytes % (0.0-12.0) % Eosinophils % (0.00-5.0) % Basophils % (0.0-0.4) % Absolute Granulocytes (1.4-6.9) x10^3/uL Basophils # (0-0.4) x10^3/uL Sodium (135-145) mmol/L Potassium (3.5-5.1) mmol/L Chloride (98-107) mmol/L Carbon Dioxide (22-30) mmol/L Anion Gap (5-15) MEQ/L BUN (7-17) mg/dL Creatinine (0.52-1.04) mg/dL Estimated GFR ML/MIN Glucose (74-106) mg/dL POC Glucometer 127 H 187 H (74 to 106) mg/dL Hemoglobin A1c (4.5-6.0) % Calcium (8.4-10.2) mg/dL Magnesium (1.6-2.3) mg/dL Total Bilirubin (0.2-1.3) mg/dL AST (14-36) U/L ALT (0-35) U/L Alkaline Phosphatase (38-126) U/L Troponin I (0.000-0.034) ng/mL NT-Pro-B Natriuret Pep (<300) pg/mL Serum Total Protein (6.3-8.2) g/dL Albumin (3.5-5.0) g/dL TSH 3rd Generation (0.47-4.68) mIU/L Urine Color (Yellow) Urine Appearance (Clear) Urine pH (4.6-8.0) Ur Specific [place] (1.005-1.030) Urine Protein (Negative) Urine Glucose (UA) (Negative) mg/dL Urine Ketones (Negative) Urine Blood (Negative) Urine Nitrite (Negative) Urine Bilirubin (Negative) Urine Urobilinogen (0.2) mg/dL Ur Leukocyte Esterase (Negative) U Hyaline Cast (Auto) (0-2) /LPF Urine Microscopic RBC (0-5) /HPF Urine Microscopic WBC (0-5) /HPF Ur Epithelial Cells (None Seen) /HPF Urine Bacteria (None Seen) /HPF Urine Culture Reflexed (NO) Micro Results-Entire Visit: Accuchecks Date 06/25/23 Date 06/24/23 Date 06/24/23 Time 20:45 Time 16:15 - Radiology Exams Ordered Rad Exams-Entire Visit: Radiology Procedures Category Date Time Status CHEST 1 VIEW (PORTABLE) Stat Exams 06/24/23 13:28 Completed ECHO W/2D AND DOPPLER [US] Stat Exams 06/24/23 13:06 Taken - Procedures and Test Procedures and Tests throughout Hospitalization: Therapy Orders & Screens 06/24/23 13:06 PT Eval & Treat (MD Order) ONCE Reason for Eval:: weakness Diagnosis: AFIB RVR EKG REPEAT IN AM Comment: Diagnosis: AFIB RVR Respiratory Therapy Consult ONCE Comment: Reason For Exam: Diagnosis: AFIB RVR OT Eval and Treat ( Order) ONCE Comment: Physician Instructions: Reason For Exam: Diagnosis: AFIB RVR 06/24/23 18:02 EKG ONCE Comment: Diagnosis: AFIB RVR 06/24/23 21:00 BiPap/CPAP ROUTINE Comment: Diagnosis: AFIB RVR Oxygen NASAL CANNULA 2 lpm Comment: W/ CPAP AT NIGHT Diagnosis: AFIB RVR Discharge Exam General Appearance: no apparent distress Neurologic Exam: alert, oriented x 3, cooperative Eye Exam: PERRL Ears, Nose, Throat Exam: normal ENT inspection Neck Exam: normal inspection Respiratory Exam: normal breath sounds, lungs clear Cardiovascular Exam: regular rate/rhythm, normal heart sounds Gastrointestinal/Abdomen Exam: soft, normal bowel sounds Pelvic Exam: deferred Rectal Exam: deferred Back Exam: normal inspection Extremity Exam: normal inspection Skin Exam: normal color Final Diagnosis/Problem List - Final Discharge Diagnosis/Problem (1) Atrial fibrillation with rapid ventricular response Current Visit: No Status: Acute Code(s): I48.91 - UNSPECIFIED ATRIAL FIBRILLATION (2) CHF (congestive heart failure) Current Visit: No Status: Acute Code(s): I50.9 - HEART FAILURE, UNSPECIFIED (3) HLD (hyperlipidemia) Current Visit: No Status: Acute Code(s): E78.5 - HYPERLIPIDEMIA, UNSPECIFIED (4) HTN (hypertension) Current Visit: No Status: Acute Code(s): I10 - ESSENTIAL (PRIMARY) HYPERTENSION (5) COPD (chronic obstructive pulmonary disease) Current Visit: No Status: Acute (6) Diabetes mellitus Current Visit: No Status: Acute Code(s): E11.9 - TYPE 2 DIABETES MELLITUS WITHOUT COMPLICATIONS - Discharge Disposition: Home, Self-Care Condition: Stable Prescriptions: New Amiodarone HCl 200 mg [Cordarone 200 MG] See Rx Instructions .ROUTE .COMPLEX 30 Days #35 tablet Metoprolol Tartrate 25 mg [Lopressor 25MG Tab] 25 mg PO BID 30 Days #60 tablet Continue Apixaban [Eliquis] 5 mg PO BID 30 Days #60 tab Metformin HCl 500 mg [Glucophage 500 MG] 500 mg PO BIDWM 30 Days #60 tablet Glipizide 2.5 mg [Glucotrol Xl 2.5 MG] 2.5 mg PO BID 30 Days #60 tablet Insulin Glargine [Lantus Insulin] 20 unit SQ QAM 30 Days #600 unit Blood-Glucose Meter [Accu-Chek Guide Me Glucose Mtr] 1 each UD #1 unit Blood Sugar Diagnostic [Accu-Chek Guide Test Strip] 1 each TIDAC #100 stri p Pen Needle, Diabetic [Pen Needle] 1 each UD #100 units Losartan Potassium 50 mg [Cozaar 50 MG] 50 mg PO DAILY Furosemide 20 mg [Lasix 20 mg] 20 mg PO DAILY Lancets [Accu-Chek Softclix] 1 each TIDAC #100 units Discontinued Carvedilol 3.125 mg [Coreg 3.125 MG] 3.125 mg PO BID Instructions: Atrial Fibrillation (DC) Follow up with: AIDEE MURPHY [CONSULTING PHYSICIAN] - 07/09/23 2:00 pm (at [place] ) LIDIA AGUILAR NP [NON-STAFF PHY W/O PRIVILEGES] - 07/03/23 2:00 pm Forms: Discharge Instructions
[2023-06-25 12:41] VITALS: BP 153/71; RESP 18; TEMP 97.1
[2023-06-25 12:44] VITALS: PULSE 58
[2023-06-27] MEDS ORDERED: LASIX 20 MG PO SCH (10:00)
== END 2023-06-25 15:45 | disposition home health service (06) ==
LOC: ED 10:12 → ICU 12:32
PROVIDERS: ADMIT Internal Medicine; ATTEND Internal Medicine
DX: I48.20 Chronic atrial fibrillation, unspecified (principal); E78.5 Hyperlipidemia, unspecified; I11.0 Hypertensive heart disease with heart failure; I50.9 Heart failure, unspecified; J44.9 Chronic obstructive pulmonary disease, unspecified; E11.9 Type 2 diabetes mellitus without complications; Z99.81 Dependence on supplemental oxygen; Z79.01 Long term (current) use of anticoagulants; Z79.899 Other long term (current) drug therapy; Z20.828 Contact with and (suspected) exposure to other viral communicable diseases; Z58.89 Other problems related to physical environment
CPT/HCPCS: 36000; 36415; 71045; 80053; 81001; 82947; 83036; 83735; 83880; 84443; 84484; 85025; 93005; 93041; 93306; 94660; 94760; 96360; 96365; 96374; 99285; J0282; J1817; J1940; Q3014; A9270-GY

== ENCOUNTER 2023-12-07 14:53 | Emergency (ER) | payer MEDICARE, BC ==
[2023-12-07 14:57] VITALS: TEMP 97.4; O2SAT 98
--- NOTE | 2023-12-07 15:19 | ERPHSYRPT ---
- History of Present Illness Time Seen by Provider: 12/07/23 15:18 Source: patient Exam Limitations: no limitations Patient Subjective Stated Complaint: pt here for low blood sugar at home, she took her insulin and did not eat, she became confused,and ems was called Triage Nursing Assessment: pt arrived per ems, alert and oriented now after getting 1 amp of d50% enroute, pt is dirty and dishoveled with multi scabed areas over body she states she itches them in her sleep Physician History: Patient BIBA due to hypoglycemic event. Glucose in the 40s. Responded to D50, but dropped soon after. Patient alert, oriented and interactive on arrival to ER. Vital signs wnl. Patient has no complaints. Her last A1c visible in records was in the 5s, but still taking large amounts of insulin. Timing/Duration: today Severity: severe Modifying Factors: Improves With: eating Associated Symptoms: denies symptoms Allergies/Adverse Reactions: morphine Allergy (Severe, Verified 12/07/23 14:54) anaphylaxis pt went into respiratory failure and acute renal failure the last time she had morphine. "I was in a coma for a week" adhesive Allergy (Mild, Verified 12/07/23 14:54) Blisters aspirin Allergy (Verified 12/07/23 14:54) Difficulty Breathing PT STATES THAT SHE CAN TAKE ASPIRIN 81 MG BUT NOTHING HIGHER IN DOSE. Penicillins Allergy (Verified 12/07/23 14:54) Rash povidone-iodine [From Betadine] Allergy (Verified 12/07/23 14:54) BLISTERES soap [From Betadine] Allergy (Verified 12/07/23 14:54) Blisters Home Medications: Furosemide 20 mg [Lasix 20 mg] 20 mg PO DAILY 06/24/23 [History] Losartan Potassium 50 mg [Cozaar 50 MG] 50 mg PO DAILY 06/24/23 [History] Hx Tetanus, Diphtheria Vaccination/Date Given: Yes Hx Influenza Vaccination/Date Given: Yes Hx Pneumococcal Vaccination/Date Given: Yes Immunizations Up to Date: Yes Travel Risk - International Travel Have you traveled outside of the country in past 3 weeks: No - Emerging Infectious Disease Are you exhibiting symptoms associated with any current EIDs: No - Review of Systems All Other Systems: Reviewed and Negative - Past Medical History Pertinent Past Medical History: Yes Neurological History: Peripheral Neuropathy ENT History: No Pertinent History Cardiac History: Angina, Arrhythmia, Congestive Heart Failure, High Cholesterol, Hypertension Respiratory History: COPD, Pneumonia Endocrine Medical History: Diabetes Type II Musculoskeletal History: Arthritis, Fractures GI Medical History: Diverticulitis, Other History: Other Psycho-Social History: No Pertinent History Female Reproductive Disorders: No Pertinent History Other Medical History: Impaired kidney function, HYPOKALEMIA, LEFT ANKLE FRACTURE 05/07/19, C DIFF COVID 09/2021, a fib - Past Surgical History Past Surgical History: Yes Neuro Surgical History: No Pertinent History Cardiac: No Pertinent History Respiratory: No Pertinent History Gastrointestinal: Appendectomy Genitourinary: No Pertinent History Musculoskeletal: Orthopedic Surgery Female Surgical History: Hysterectomy Other Surgical History: Multiple hand surgeries, Left foot surgery approx 8 months ago with surgical sight still not completely healed today. Dr Rahul molina. Significant Family History: diabetes, hypertension - Social History Smoking Status: Former smoker How long have you smoked: 1 year Exposure to second hand smoke: Yes Alcohol Use: None Drug Use: none Patient Lives Alone: No - Social Determinants of Health Will the patient participate in the screening: Yes Do you worry about a steady place to live?: No Do you have any problems with any of the following?: Pest (bugs,ants,or mice) In the past 12 months,have you had to go without utilities?: No Transportation Issues: Choose not to answer Has anyone in your support network made you feel unsafe?: No Have you or anyone in your house had to go without enough: No Comment: patient would like help finding someone to help clean her home and rid of pests ,, pt now today denies pests 12/07/2023 - Nursing Vital Signs Nursing Vital Signs: Initial Vital Signs Temperature 97.4 F 12/07/23 14:56 Pulse Rate 59 L 12/07/23 14:56 Respiratory Rate 20 12/07/23 14:56 Blood Pressure 214/76 12/07/23 14:56 O2 Sat by Pulse Oximetry 98 12/07/23 14:56 Pain Scale Pain Intensity 0 - Physical Exam General Appearance: no apparent distress Eye Exam: PERRL/EOMI, eyes nml inspection Ears, Nose, Throat Exam: normal ENT inspection Neck Exam: normal inspection, non-tender, supple, full range of motion Respiratory Exam: normal breath sounds, lungs clear, airway intact, No respiratory distress Cardiovascular Exam: regular rate/rhythm, normal heart sounds, No edema Gastrointestinal/Abdomen Exam: soft, normal bowel sounds, No tenderness, No distention Extremity Exam: No swelling Neurologic Exam: alert, oriented x 3, cooperative Skin Exam: normal color, warm, dry SpO2 Interpretation: normal SpO2: 98 O2 Delivery: Room Air - Course Nursing assessment & vital signs reviewed: Yes Lab/Rad Data: Laboratory Results 12/07/23 Range/Units 15:15 POC Glucometer 62 L (74 to 106) mg/dL - Progress Progress: improved Progress Note: advised patient to f/u with her provider that manages her DM. She needs adjustment on an outpatient basis to help reduce hypoglycemic events. Counseled pt/family regarding: diagnosis, need for follow-up Medical Desision Making - Diagnostic Testing Diagnostic test were ordered, analyzed, and reviewed by me: No - Risk of complications Low Risk: Low risk of morbidity from additional dx testing or treatment - Departure Departure Disposition: Home Clinical Impression: Hypoglycemia Condition: Good Critical Care Time: No Referrals: CECELIA ROMANO DO [Primary Care Provider] - Follow up/PCP as directed Instructions: Low Blood Sugar, Adult (DC)
[2023-12-07 17:11] VITALS: BP 154/58; PULSE 78; RESP 18
== END 2023-12-07 18:07 | disposition home or self-care (01) ==
LOC: ED 14:53
DX: E11.42 Type 2 diabetes mellitus with diabetic polyneuropathy (principal); I11.0 Hypertensive heart disease with heart failure; I50.9 Heart failure, unspecified; E78.5 Hyperlipidemia, unspecified; Z79.899 Other long term (current) drug therapy; Z79.4 Long term (current) use of insulin
CPT/HCPCS: 82947; 99283

== ENCOUNTER 2025-01-20 07:02 | Day surgery (SDC) | payer MEDICARE, BC ==
--- NOTE | 2025-01-13 12:00 | HP ---
HISTORY OF PRESENT ILLNESS: Patient is a 74-year-old who presents with dysphagia, getting choked on pills. Sometimes he has food as well getting choked on. He was dilated several years ago. PAST MEDICAL HISTORY: Sleep apnea, GERD, diabetes, osteoporosis, depression, COPD, hypertension, dementia, atrial fibrillation. HOME MEDICATIONS: Zofran, Tylenol, senna, methocarbamol, Lasix, potassium, vancomycin, Humalog, tramadol, Eliquis, melatonin, gabapentin, meropenem, nystatin. ALLERGIES: Betadine, morphine, penicillin, and aspirin. PAST SURGICAL HISTORY: Hysterectomy, foot procedure, knee scope. SOCIAL HISTORY: Negative. FAMILY HISTORY: None reported. REVIEW OF SYSTEMS: GENERAL: No acute distress. CARDIOVASCULAR: Denies chest pain. PULMONARY: Denies shortness of breath. ABDOMEN: Denies abdominal pain. PHYSICAL EXAMINATION: GENERAL: No acute distress. CARDIOVASCULAR: Regular rate and rhythm. RESPIRATORY: Nonlabored. No shortness of breath. ABDOMEN: Soft. ASSESSMENT: Dysphagia. PLAN: EGD, possible dilatation with Dr. Wilder Crystal. This report was dictated for Dr. Crystal by Marcela Campbell NP.
[2025-01-20] MEDS ORDERED: Lactated Ringers 1,000 ML IV ONE (07:05)
[2025-01-20 07:36] VITALS: TEMP 97.2
[2025-01-20] MEDS: Lactated Ringers 1,000 ML IV SCH (07:43)
[2025-01-20 07:58] LABS: Calcium 9.4 mg/dL (8.4-10.2); Carbon Dioxide 30.0 mmol/L (22-30); Creatinine 1 1.02 mg/dL (0.52-1.04); EST GLOMERULAR FILTRATION RATE 57.4 ML/MIN; Glucose 86.0 mg/dL (74-106); Potassium 4.1 mmol/L (3.5-5.1)
[2025-01-20] MEDS ORDERED: Versed 2 MG/2 ML Injection ONE (09:59)
[2025-01-20] MEDS ORDERED: Xylocaine-Mpf 2% 5 Ml Vial ONE (09:59)
[2025-01-20] MEDS ORDERED: propofoL IV ONE (09:59)
[2025-01-20] MEDS ORDERED: Zofran 4 MG/2 ML VIAL ONE (10:30)
[2025-01-20 11:06] VITALS: RESP 16; O2SAT 94
[2025-01-20 11:11] VITALS: BP 157/73; PULSE 56
--- NOTE | 2025-01-20 16:13 | OP ---
SURGERY DATE/TIME: 01/20/2025 [id number] PREOPERATIVE DIAGNOSIS: Dysphagia. POSTOPERATIVE DIAGNOSIS: Cricopharyngeal spasms. PROCEDURE: Esophagogastroduodenoscopy with dilatation, Idris 44. SURGEON: Wilder Crystal MD ANESTHESIA: General. COMPLICATIONS: None. CONDITION: Stable. INDICATIONS: The patient had difficulty with pills hanging up in the back of her throat. She has had dilatation before. She presents for EGD and possible dilatation. DESCRIPTION OF PROCEDURE AND FINDINGS: She was taken to endoscopy, left lateral decubitus position. Scope introduced. Just a slight resistance going down initially. The esophagus had a normal diameter. There was grade 2 irritation of the esophagus. There was no hiatal hernia. Fundus, body, antrum satisfactory. There had been some old prepyloric ulcers. These healed. Pylorus normal. Duodenal bulb normal. Second portion normal. Scope looped upon itself. No hiatal hernia. Scope withdrawn. Seemed to be some spasm here at the cricopharyngeal area. A 46 was initiated but it just did not seem to be wanting to go so a size 44 was chosen, and with care and patience, it went through this cricopharyngeal area. It was left there for 1 minute. It was withdrawn. The scope was reintroduced, looked satisfactory with no trauma either at the cricopharyngeus or at the EG junction. The patient tolerated the procedure satisfactorily.
== END 2025-01-20 11:20 ==
LOC: SDC 07:02
PROVIDERS: ATTEND Surgery
DX: R13.10 Dysphagia, unspecified (principal); E11.9 Type 2 diabetes mellitus without complications; I10 Essential (primary) hypertension